=== PATIENT | female | born 1955 | race Caucasian/White ===

== ENCOUNTER 2016-06-18 07:56 | Inpatient (IN) | payer OTHER, MEDICARE ==
[2016-06-18] VITALS (15 sets, daily range): BP systolic 146–222; BP diastolic 90–135; PULSE 78–108; RESP 17–28; TEMP 98.1–98.7; O2SAT 92–97
[~2016-06-18] VITALS: Ht 162.6 cm; Wt 80.2 kg
[~2016-06-18 07:56] MED LIST: ACCUKIT11; ACCUKIT13; ASPI81 PO; BACT800T5 PO; CALTTAB PO; CLON.1 PO; DAILTAB PO; DUONI INH; HYDRA25 PO; ISOS60 PO; LEVEMIR SQ; LISI5 PO; METO50TA PO; NEUR100C PO; NIFE1TAB86 PO; NOVOLOGSS SQ; PRED10 PO; REQU3TAB PO; SYMB160A INH; UMEC1AER INH; VITA100020 PO; Z.0.OXYGENDME NC; [UNRECOGNIZED DRUG - CODE]
[2016-06-18] MEDS ORDERED: SODIUM CHLOR 0.9% 1000 ML INJ 1,000 ML IV ONE (08:15)
[2016-06-18] MEDS ORDERED: SODIUM CHLORIDE 0.9% FLUSH 5 ML FLUSH IVF PRN (08:15)
--- NOTE | 2016-06-18 08:40 | PD ---
HPI Chief Complaint: Altered Mental Status Time Seen by Provider: 08:03 Travel History International Travel<30 days: No Contact w/Intl Traveler<30days: No Traveled to known affect area: No History of Present Illness HPI Patient is a 60-year-old female with history of COPD on 2 L nasal cannula at all times, who presents to emergency room with her daughter for evaluation of altered mental status. As per patient's daughter, patient has not been acting like herself since yesterday, reports that patient appears very confused. Reports that she has noticed that patient has gotten up to urinate multiple times per hour. Reports concerns as patient may have a UTI. Reports that patient has had AMS in the past due to hyponatremia. Daughter thinks that patient has been eating and drinking normally. Denies any recent traumas or falls. Patient at this time is only alert to person, she is confused, patient with no complaints at this time. PFSH Past Medical History Anemia: Yes Arthritis: Yes (RHEUMATOID ) Asthma: No Autoimmune Disease: No Anxiety: Yes (THIS VISIT) Depression: No Heart Rhythm Problems: No Cardiovascular Problems: Yes (Cardiac arrest August 2015) High Cholesterol: Yes Chest Pain: No Congestive Heart Failure: No COPD: Yes Cerebrovascular Accident: No Diabetes: Yes Patient Takes Glucophage: No Diminished Hearing: No Endocrine: No Genitourinary: Yes (urinary retention) Hepatitis: No Hiatal Hernia: No Hypertension: Yes Immune Disorder: No Neurologic: No Psychiatric: No Respiratory: Yes Immunizations Current: Yes Migraines: No Myocardial Infarction: Yes Seizures: No Sleep Apnea: No Thyroid Disease: No Past Surgical History Abdominal Surgery: Yes AICD: No Arteriovenous Shunt: No Body Medical Devices: LEFT HIP HARDWARE Cardiac Surgery: No Ear Surgery: No Endocrine Surgery: No Eye Surgery: No Genitourinary Surgery: No Gynecologic Surgery: Yes (VAG. HYSTERECTOMY/ BSO) Hysterectomy: Yes Joint Replacement: Yes (KWADWO. KNEES) Neurologic Surgery: Yes ( 2 LUMBAR FUSION) Oral Surgery: Yes (TONSILLECTOMY) Pacemaker: No Thoracic Surgery: No Social History Alcohol Use: No Tobacco Use: No Substance Use: No Allergies-Medications (Allergen,Severity, Reaction): Coded Allergies: Codeine (Verified Adverse Reaction, Severe, 06/18/16) *MDRO Multi-Drug Resistant Organism (Verified Adverse Reaction, Unknown, ) MDR E. 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 Reported Meds & Prescriptions Reported Meds & Active Scripts Active Reported Anoro Ellipta Inh (Umeclidinium/Vilanterol) 62.5-25 Mcg/Act Aero 1 Puff INH DAILY Requip (Ropinirole) 3 Mg Tab 3 Mg PO HS PRN Nifedipine 20 Mg Cap 60 Mg PO Q12HR Multi Vitamin (Multiple Vitamin) 1 Tab Tab 1 Tab PO DAILY Vitamin B-12 Cr (Cyanocobalamin) 1,000 Mcg Tab 1,000 Mcg PO DAILY Metoprolol Tartrate 50 Mg Tab 50 Mg PO BID Lisinopril 5 Mg Tab 5 Mg PO DAILY Isosorbide Mononitrate ER (Isosorbide Mononitrate) 60 Mg Tab 60 Mg PO DAILY Levemir Inj (Insulin Detemir) 1,000 unit/ 10 ML Vial 10 Units SQ BID Do not mix with any other Insulin. Novolog Inj (Insulin Aspart) 1,000 Unit/10 Ml Vial 0 SQ DIRECTED Sliding Scale as directed. Hydralazine (Hydralazine HCl) 100 Mg Tab 100 Mg PO Q8HR Take with meals Gabapentin 100 Mg Cap 200 Mg PO BID Clonidine (Clonidine HCl) 0.1 Mg Tab 0.1 Mg PO Q8HR Caltrate 600+D (Calcium Carbonate-Cholecalciferol) 600-800 Mg-Unit Tab 1 Tab PO DAILY Symbicort Inh (Budesonide/Formoterol Fumarate) 160-4.5 Mcg/Act Aero 2 Puff INH Q12HR Albuterol Neb (Albuterol Sulfate) 2.5 Mg/0.5 Ml Neb 2.5 Mg NEB Q4HR NEB PRN Note: The Albuterol Sulfate Inhalation Solution is concentrated and must be diluted. Read complete instructions carefully before using. Aspirin 81 Mg Tabdr 81 Mg PO DAILY Review of Systems ROS Limitations: Altered Mental Status General / Constitutional: No: Fever Eyes: No: Visual changes HENT: No: Headaches Cardiovascular: No: Chest Pain or Discomfort Respiratory: No: Shortness of Breath Gastrointestinal: No: Abdominal Pain Genitourinary: No: Dysuria Musculoskeletal: No: Pain Skin: No Rash Neurologic: No: Weakness Psychiatric: No: Depression Endocrine: No: Polydipsia Hematologic/Lymphatic: No: Easy Bruising Physical Exam Narrative GENERAL: Mild distress SKIN: Warm and dry. HEAD: Atraumatic. Normocephalic. EYES: Pupils equal and round. No scleral icterus. No injection or drainage. ENT: No nasal bleeding or discharge. Mucous membranes pink and moist. NECK: Trachea midline. No JVD. CARDIOVASCULAR: Regular rate and rhythm. No murmur appreciated. RESPIRATORY: No accessory muscle use. Clear to auscultation. Breath sounds equal bilaterally. GASTROINTESTINAL: Abdomen soft, non-tender, nondistended. Hepatic and splenic margins not palpable. MUSCULOSKELETAL: No obvious deformities. No clubbing. No cyanosis. No edema. NEUROLOGICAL: Awake and alert. No obvious cranial nerve deficits. Motor grossly within normal limits. Normal speech. PSYCHIATRIC: Patient confused, alert to person only Data Data Last Documented VS Vital Signs Date Time Temp Pulse Resp B/P Pulse Ox O2 Delivery O2 Flow Rate FiO2 06/18/16 09:40 94 Venturi Mask 50 06/18/16 08:20 22 3 06/18/16 08:06 90 06/18/16 08:02 98.1 167/112 Orders Electrocardiogram (06/18/16 ) Prothrombin Time / Inr (Pt) (06/18/16 08:12) Act Partial Throm Time (Ptt) (06/18/16 08:12) Complete Blood Count With Diff (06/18/16 08:12) Comprehensive Metabolic Panel (06/18/16 08:12) Creatine Kinase (Cpk) (06/18/16 08:12) Drug Screen, Random Urine (06/18/16 08:12) Troponin I (06/18/16 08:12) Urinalysis - C+S If Indicated (06/18/16 08:12) Ct Brain W/O Iv Contrast(Rout) (06/18/16 08:12) Chest, Single Ap (06/18/16 08:12) Ecg Monitoring (06/18/16 08:12) Iv Access Insert/Monitor (06/18/16 08:12) Oximetry (06/18/16 08:12) Cath For Specimen (06/18/16 08:12) Blood Glucose (06/18/16 08:12) Sodium Chloride 0.9% Flush (Ns Flush) (06/18/16 08:15) Sodium Chlor 0.9% 1000 Ml Inj (Ns 1000 M (06/18/16 08:15) Lorazepam Inj (Ativan Inj) (06/18/16 09:15) Lorazepam Inj (Ativan Inj) (06/18/16 09:06) Urine Culture (06/18/16 08:40) Ceftriaxone Inj (Rocephin Inj) (06/18/16 09:45) Labs Laboratory Tests Test 06/18/16 06/18/16 08:30 08:40 White Blood Count 6.8 TH/MM3 Red Blood Count 4.51 MIL/MM3 Hemoglobin 13.1 GM/DL Hematocrit 38.9 % Mean Corpuscular Volume 86.3 FL Mean Corpuscular Hemoglobin 29.0 PG Mean Corpuscular Hemoglobin 33.7 % Concent Red Cell Distribution Width 14.2 % Platelet Count 240 TH/MM3 Mean Platelet Volume 6.9 FL Neutrophils (%) (Auto) 84.1 % Lymphocytes (%) (Auto) 8.5 % Monocytes (%) (Auto) 6.1 % Eosinophils (%) (Auto) 0.7 % Basophils (%) (Auto) 0.6 % Neutrophils # (Auto) 5.7 TH/MM3 Lymphocytes # (Auto) 0.6 TH/MM3 Monocytes # (Auto) 0.4 TH/MM3 Eosinophils # (Auto) 0.0 TH/MM3 Basophils # (Auto) 0.0 TH/MM3 CBC Comment DIFF FINAL Differential Comment Prothrombin Time 11.1 SEC Prothromb Time International 1.0 RATIO Ratio Activated Partial 27.7 SEC Thromboplast Time Sodium Level 136 MEQ/L Potassium Level 4.2 MEQ/L Chloride Level 96 MEQ/L Carbon Dioxide Level 30.8 MEQ/L Anion Gap 9 MEQ/L Blood Urea Nitrogen 24 MG/DL Creatinine 1.86 MG/DL Estimat Glomerular Filtration 27 ML/MIN Rate Random Glucose 113 MG/DL Calcium Level 8.9 MG/DL Total Bilirubin 0.4 MG/DL Aspartate Amino Transf 9 U/L (AST/SGOT) Alanine Aminotransferase 14 U/L (ALT/SGPT) Alkaline Phosphatase 135 U/L Total Creatine Kinase 53 U/L Troponin I LESS THAN 0.02 NG/ML Total Protein 8.2 GM/DL Albumin 3.5 GM/DL Urine Color YELLOW Urine Turbidity CLEAR Urine pH 7.5 Urine Specific [place] 1.013 Urine Protein 300 mg/dL Urine Glucose (UA) NEG mg/dL Urine Ketones 10 mg/dL Urine Occult Blood TRACE Urine Nitrite NEG Urine Bilirubin NEG Urine Urobilinogen LESS THAN 2.0 MG/DL Urine Leukocyte Esterase TRACE Urine RBC LESS THAN 1 /hpf Urine WBC 10 /hpf Urine WBC Clumps RARE Urine Squamous Epithelial <1 /hpf Cells Urine Bacteria OCC /hpf Microscopic Urinalysis Comment CULTURE INDICATED Urine Opiates Screen NEG Urine Barbiturates Screen NEG Urine Amphetamines Screen NEG Urine Benzodiazepines Screen NEG Urine Cocaine Screen NEG Urine Cannabinoids Screen NEG MDM Medical Decision Making Medical Screen Exam Complete: Yes Emergency Medical Condition: Yes Interpretation(s) EKG at 0808: Normal sinus rhythm at 95 beats minute, QT/QTc 380/342, no acute ST or T-wave changes Vital Signs Date Time Temp Pulse Resp B/P Pulse Ox O2 Delivery O2 Flow Rate FiO2 06/18/16 08:20 22 92 Nasal Cannula 3 06/18/16 08:06 90 22 93 Nasal Cannula 3 06/18/16 08:02 98.1 101 24 167/112 93 Differential Diagnosis UTI, CVA, hyponatremia, electrolyte abnormality, ACS Narrative Course Patient is a 60-year-old female who presents to emergency room from home with her daughter for evaluation of altered mental status. As per patient's daughter , patient has history of COPD, chronic back pain, reports that yesterday patient began to have "altered mental status." Reports that she has not been acting like her normal self and is only alert to person. Daughter denies any changes in medications. No fever/chills, no fall. Patient with no complaints in the emergency room. She is confused and only alert to person. Patient was placed on a cardiac cath tech upon arrival to emergency room. Labs as well as EKG and CAT scan of the head ordered for further evaluation symptoms. UA ordered for evaluation of possible urinary tract infection. Patient reevaluated, patient still confused. CBC unremarkable BMP: Sodium 136, potassium 4.2, BUN 24, creatinine 1.86 (baseline cr 1.37-2.06) , glucose 113, troponin 0.02 UA: Trace blood, trace leuk esterase, 10 white blood cells, rare white blood cell clumps UDS: neg X-ray of the chest with chronic opacities in the lung bases bilaterally suspicious for interstitial lung disease, no acute findings Patient confused at bedside, will require admission for acute delirium most likely from urinary tract infection. Call made to [facility] for admission Physician Communication Physician Communication case reviewed with dr benton who accepts pt to service for observation Diagnosis Primary Impression: Acute delirium Additional Impressions: UTI (urinary tract infection) Dehydration Admitting Information Admitting Physician Requests: Observation Emerita Conteh DO Jun 18, 2016 08:40
[2016-06-18 08:58] LABS: AUTOMATED NEUTROPHIL # 5.7 TH/MM3 (1.8-7.7); BASOPHIL % 0.6 % (0.0-2.0); EOSINOPHIL % 0.7 % (0.0-4.0); HEMATOCRIT 38.9 % (35.0-46.0); HEMO FLAGS DIFF FINAL; LYMPH % 8.5 % (9.0-44.0); LYMPHOCYTE # 0.6 TH/MM3 (1.0-4.8); MEAN CELL VOLUME 86.3 FL (80.0-100.0); MEAN CORPUSCULAR HGB CONC 33.7 % (32.0-36.0); MONO % 6.1 % (0.0-8.0); NEUT % 84.1 % (16.0-70.0); PLATELET COUNT 240 TH/MM3 (150-450); RED BLOOD COUNT 4.51 MIL/MM3 (4.00-5.30); RED CELL DISTRIBUTION WIDTH 14.2 % (11.6-17.2); WHITE BLOOD COUNT 6.8 TH/MM3 (4.0-11.0)
[2016-06-18 09:05] LABS: APTT (PATIENT) 27.7 SEC (24.3-30.1); PROTHROMBIN TIME - PATIENT 11.1 SEC (9.8-11.6)
[2016-06-18 09:06] LABS: AMPHETAMINE, URINE NEG (NEG); BARBITURATES, URINE NEG (NEG); COCAINE, URINE NEG (NEG)
[2016-06-18] MEDS ORDERED: LORazepam 2 MG/ML VIAL ONE (09:06)
[2016-06-18 09:07] LABS: BACTERIA, URINE OCC /hpf; BLOOD, URINE TRACE (NEG); COMMENT (UR) CULTURE INDICATED; CULTURE IF INDICATED CULTURE INDICATED; GLUCOSE,URINE NEG (NEG); KETONE, URINE 10 mg/dL (NEG); NITRITE,URINE NEG (NEG); PH, URINE 7.5 (5.0-8.5); SQUAMOUS EPITHELIAL CELL URINE <1 /hpf (0-5); URINE COLOR YELLOW (YELLW/STRAW)
[2016-06-18] MEDS ORDERED: LORazepam 2 MG/ML VIAL IV PUSH ONE (09:15)
[2016-06-18 09:16] LABS: ANION GAP 9 MEQ/L (5-15); AST (GOT) 9 U/L (15-37); BICARBONATE 30.8 MEQ/L (21.0-32.0); BLOOD UREA NITROGEN 24 MG/DL (7-18); CHLORIDE 96 MEQ/L (98-107); GLOMERULAR FILTRATION RATE 27 ML/MIN (>89); POTASSIUM 4.2 MEQ/L (3.5-5.1); SODIUM (NA) 136 MEQ/L (136-145)
[2016-06-18 09:20] LABS: ALKALINE PHOSPHATASE 135 U/L (45-117); ALT (GPT) 14 U/L (10-53); TOTAL BILIRUBIN ADULT 0.4 MG/DL (0.2-1.0)
[2016-06-18 09:24] LABS: CREATINE KINASE 53 U/L (26-192)
[2016-06-18] MEDS ORDERED: cefTRIAXone INJ 1,000 MG in SODIUM CHLORIDE 0.9% INJ 100 ML IV ONE (09:45)
[2016-06-18] MEDS ORDERED: ASPI1TAB69 PO (10:04)
[2016-06-18] MEDS ORDERED: METO50TA PO (10:04)
[2016-06-18] MEDS ORDERED: ALBU.5I NEB (10:04)
[2016-06-18] MEDS ORDERED: NIFE20 PO (10:04)
[2016-06-18] MEDS ORDERED: UMEC1AER INH (10:04)
[2016-06-18] MEDS ORDERED: NOVOLOGP2 SQ (10:04)
[2016-06-18] MEDS ORDERED: LISI-519 PO (10:04)
[2016-06-18] MEDS ORDERED: LEVEMIR SQ (10:04)
[2016-06-18] MEDS ORDERED: CLON0.1T PO (10:04)
[2016-06-18] MEDS ORDERED: CALTTAB PO (10:04)
[2016-06-18] MEDS ORDERED: HYDR-3801 PO (10:04)
[2016-06-18] MEDS ORDERED: VITA10004 PO (10:04)
[2016-06-18] MEDS ORDERED: GABA100C4 PO (10:04)
[2016-06-18] MEDS ORDERED: MULT-135 PO (10:04)
[2016-06-18] MEDS ORDERED: REQU3TAB PO (10:04)
[2016-06-18] MEDS ORDERED: ISOS60TA PO (10:04)
[2016-06-18] MEDS ORDERED: SYMB160A INH (10:04)
--- NOTE | 2016-06-18 10:22 | RADRPT ---
EXAM DATE/TIME: 06/18/2016 09:48 [facility] COMPARISON: CHEST SINGLE AP, September 03, 2015, 8:23. CT THORACIC SPINE W/O CONTRAST, September 28, 2015, 0:56. CHEST SIN GLE AP, September 17, 2015, 21:27. INDICATIONS : Short of breath, wheezing. MEDICAL HISTORY : Chronic obstructive pulmonary disease. SURGICAL HISTORY : None. ENCOUNTER: Initial ACUITY: 1 day PAIN SCORE: 0/10 LOCATION: Bilateral chest FINDINGS: Portable AP view of the chest demonstrates a normal-sized cardiac silhouette with stable but prominen t central pulmonary arteries. There are coarse interstitial opacities in the mid and lower lung zones bilaterally similar to the prior study. No consolidation or pneumothorax is identified. Bones and so ft tissues demonstrate no acute finding. CONCLUSION: Chronic coarse initial opacities in the lung bases bilaterally suspicious for interstitial lung disea se. Otherwise, no acute finding is identified. Nirav Landrum MD on June 18, 2016 at 10:19 Board Certified Radiologist. This report was verified electronically.
--- NOTE | 2016-06-18 10:38 | RADRPT ---
EXAM DATE/TIME: 06/18/2016 10:09 [facility] COMPARISON: CT BRAIN W/O CONTRAST, September 17, 2015, 22:51. INDICATIONS : Altered mental status. RADIATION DOSE: 38.08 CTDIvol (mGy) MEDICAL HISTORY : Cardiovascular disease. Hypertension. Rheumatoid arthritis. SURGICAL HISTORY : None. ENCOUNTER: Initial ACUITY: 1 day PAIN SCALE: 0/10 LOCATION: cranial TECHNIQUE: Multiple contiguous axial images were obtained of the head. Using automated exposure control and adj ustment of the mA and/or kV according to patient size, radiation dose was kept as low as reasonably a chievable to obtain optimal diagnostic quality images. FINDINGS: CEREBRUM: The ventricles are normal. No evidence of midline shift, mass lesion, hemorrhage or acute infarction . No extra-axial fluid collections are seen. POSTERIOR FOSSA: The cerebellum and brainstem demonstrate no acute findings. The 4th ventricle is midline. The cereb ellopontine angle is unremarkable. EXTRACRANIAL: Visualized sinuses are clear. SKULL: The calvaria is intact. No evidence of skull fracture. CONCLUSION: No acute intracranial abnormality is identified. Nirav Landrum MD on June 18, 2016 at 10:35 Board Certified Radiologist. This report was verified electronically.
[2016-06-18] MEDS ORDERED: NALOXONE HCL 0.4 MG/ML AMP IV PRN (11:00)
[2016-06-18] MEDS ORDERED: SENNOSIDES 8.6 MG TAB PO PRN (11:00)
[2016-06-18] MEDS: DOCUSATE SODIUM 100 MG CAP PO SCH ×2 (11:00→21:55)
[2016-06-18] MEDS ORDERED: SODIUM CHLORIDE 0.9% FLUSH 5 ML FLUSH FLUSH PRN (11:00)
[2016-06-18] MEDS: INSULIN ASPART SUPPLEMENTAL SCALE SQ SCH ×3 (11:00→20:44)
[2016-06-18] MEDS ORDERED: ACETAMINOPHEN 325 MG TAB PO PRN (11:00)
[2016-06-18] MEDS ORDERED: GLUCAGON 1 MG/ML VIAL OTHER PRN (11:30)
[2016-06-18] MEDS ORDERED: DEXTROSE 50% IN WATER 50 ML VIAL(D50) IV PUSH PRN (11:30)
[2016-06-18] MEDS ORDERED: hydrALAZINE HCL 20 MG/ML VIAL ONE (11:59)
[2016-06-18] MEDS: HEPARIN SODIUM - SQ 10,000 UNITS/ML VIAL SQ SCH ×2 (12:00→20:45)
[2016-06-18] MEDS ORDERED: hydrALAZINE HCL 20 MG/ML VIAL IV PUSH ONE ×2 (12:00→13:30)
[2016-06-18] MEDS: hydrALAZINE HCL 100 MG TAB PO SCH ×2 (14:06→20:43)
[2016-06-18] MEDS: cloNIDine HCL 0.1 MG TAB PO SCH ×2 (14:06→20:43)
--- NOTE | 2016-06-18 15:11 | EKG ---
Date Performed: 06/18/2016 Time Performed: 08:08:23 PTAGE: 60 years EKG: Sinus rhythm POSSIBLE LEFT ATRIAL ENLARGEMENT BORDERLINE ECG Compared to prior tracing no significant change PREVIOUS TRACING : 09/28/2015 01.45 DOCTOR: Gustabo Arambula Interpretating Date/Time 06/18/2016 15:09:15
[2016-06-18] MEDS ORDERED: RESP: ALBUTEROL 2.5 MG/IPRATROPIUM 0.5 MG NEB (PRN) NEB (15:30)
[2016-06-18] MEDS ORDERED: niCARdipine INJ 25 MG in SODIUM CHLOR 0.9% 250 ML INJ 250 ML IV SCH (15:30)
--- NOTE | 2016-06-18 15:35 | HHI.HP ---
[facility] Primary [facility] Physician Jn Castaneda M.D. Admission Diagnosis Acute Delirium, UTI Diagnoses: Chief Complaint: Confusion Travel History International Travel<30 Days: No Contact w/Intl Traveler <30 Da: No Traveled to Known Affected Are: No Sepsis Criteria SIRS Criteria (2 or more): Heart rate over 90, RR > 20 or PaCO2 < 32 Sepsis Criteria (SIRS+source): Infect source susp/known Criteria Outcome: Meets sepsis criteria History of Present Illness The patient is a 60-year-old female with a past medical history of COPD on home oxygen who is presenting to the hospital with confusion. The patient's daughter states that the patient has been confused since yesterday. The patient also endorses confusion since yesterday. The patient says that she didn 't know who her daughter was yesterday. The patient has also been urinating frequently so they thought that the patient may have a urinary tract infection. Reportedly the patient has been eating and drinking well. The patient denies any shortness of breath or chest pain. She also denies any fever. She says she lives with her daughter and has been going to physical therapy. She says she is on home oxygen but only uses it at night. She does endorse some sputum production and describes the sputum as clear in color. The patient says she has restless leg syndrome and is currently requesting her Requip. The patient also mentions that she take steroids on a daily basis. 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 She says she deals with chronic back pain since having back surgery a couple of years ago. 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 Active Ordered Medications Current Medications Medications (Trade) Dose Ordered Sig/Mathew Route Start Time Stop Time Status Last Admin (Ecotrin Ec) 81 mg DAILY PO 06/19/16 09:00 (Symbicort 160-4.5 Inh) 2 puff Q12HR INH 06/18/16 21:00 (Catapres) 0.1 mg Q8HR PO 06/18/16 14:00 06/18/16 14:06 (Vitamin B12) 1,000 mcg DAILY PO 06/19/16 09:00 (Apresoline) 100 mg Q8HR PO 06/18/16 14:00 06/18/16 14:06 (Levemir Inj) 10 units BID SQ 06/18/16 21:00 (Imdur) 60 mg DAILY PO 06/19/16 09:00 (Prinivil) 5 mg DAILY PO 06/19/16 09:00 (Lopressor) 50 mg BID PO 06/18/16 21:00 (Theragran) 1 tab DAILY PO 06/19/16 09:00 (Procardia) 60 mg Q12HR PO 06/18/16 21:00 (Oscal-D 250-125) 500 mg DAILY PO 06/19/16 09:00 (NS Flush) 2 ml UNSCH PRN FLUSH 06/18/16 11:00 (NS Flush) 2 ml BID FLUSH 06/18/16 21:00 (Tylenol) 650 mg Q4H PRN PO 06/18/16 11:00 (Colace) 100 mg Q12H PO 06/18/16 11:00 (Senokot) 17.2 mg Q12H PRN PO 06/18/16 11:00 (Heparin Inj) 5,000 units Q8H SQ 06/18/16 12:00 (Tylenol) 650 mg Q6H PRN PO 06/18/16 11:00 (Narcan Inj) 0.4 mg UNSCH PRN IV 06/18/16 11:00 (D50w (Vial) Inj) 25 ml UNSCH PRN IV PUSH 06/18/16 11:30 (Glucagon Inj) 1 mg UNSCH PRN OTHER 06/18/16 11:30 Methylprednisolone Sodium Succinate 40 mg 40 mg Q6HR IV PUSH 06/18/16 15:30 UNV (Levaquin 750 Mg Premix Inj) 150 ml @ 100 mls/hr Q48H IV 06/18/16 15:30 UNV Family History CAD Social History The patient says she smokes 3 cigarettes a day. She does not drink or use illicit substances. She lives with her daughter. Physical Exam Vital Signs Vital Signs Date Time Temp Pulse Resp B/P Pulse Ox O2 Delivery O2 Flow Rate FiO2 06/18/16 14:00 108 28 222/135 95 Venturi Mask 06/18/16 13:25 95 17 190/95 95 Venturi Mask 06/18/16 12:28 95 20 194/94 97 Venturi Mask 06/18/16 09:40 94 Venturi Mask 50 06/18/16 08:20 22 92 Nasal Cannula 3 06/18/16 08:06 90 22 93 Nasal Cannula 3 06/18/16 08:02 98.1 101 24 167/112 93 Physical Exam GENERAL: The patient appears very uncomfortable and short of breath. SKIN: No rashes, ecchymoses or lesions. Cool and dry. HEAD: Atraumatic. Normocephalic. No temporal or scalp tenderness. EYES: Pupils equal round and reactive. Extraocular motions intact. No scleral icterus. No injection or drainage. ENT: Nose without bleeding, purulent drainage or septal hematoma. Throat without erythema, tonsillar hypertrophy or exudate. Uvula midline. Airway patent. NECK: Trachea midline. No JVD or lymphadenopathy. Supple, nontender, no meningeal signs. CARDIOVASCULAR: Tachycardic without murmurs, gallops, or rubs. RESPIRATORY: Decreased breath sounds. Diffuse rhonchi. GASTROINTESTINAL: Abdomen soft, non-tender, nondistended. No hepato-splenomegaly , or palpable masses. No guarding. MUSCULOSKELETAL: Extremities without clubbing, cyanosis, or edema. No joint tenderness, effusion, or edema noted. NEUROLOGICAL: Awake and alert. Cranial nerves II through XII intact. Motor and sensory grossly within normal limits. Five out of 5 muscle strength in all muscle groups. Normal speech. PSYCH: Some confusion. Laboratory Laboratory Tests Test 06/18/16 06/18/16 06/18/16 08:30 08:40 12:22 White Blood Count 6.8 Red Blood Count 4.51 Hemoglobin 13.1 Hematocrit 38.9 Mean Corpuscular Volume 86.3 Mean Corpuscular Hemoglobin 29.0 Mean Corpuscular Hemoglobin 33.7 Concent Red Cell Distribution Width 14.2 Platelet Count 240 Mean Platelet Volume 6.9 Neutrophils (%) (Auto) 84.1 Lymphocytes (%) (Auto) 8.5 Monocytes (%) (Auto) 6.1 Eosinophils (%) (Auto) 0.7 Basophils (%) (Auto) 0.6 Neutrophils # (Auto) 5.7 Lymphocytes # (Auto) 0.6 Monocytes # (Auto) 0.4 Eosinophils # (Auto) 0.0 Basophils # (Auto) 0.0 CBC Comment DIFF FINAL Differential Comment Prothrombin Time 11.1 Prothromb Time International 1.0 Ratio Activated Partial 27.7 Thromboplast Time Sodium Level 136 Potassium Level 4.2 Chloride Level 96 Carbon Dioxide Level 30.8 Anion Gap 9 Blood Urea Nitrogen 24 Creatinine 1.86 Estimat Glomerular Filtration 27 Rate Random Glucose 113 Calcium Level 8.9 Total Bilirubin 0.4 Aspartate Amino Transf 9 (AST/SGOT) Alanine Aminotransferase 14 (ALT/SGPT) Alkaline Phosphatase 135 Total Creatine Kinase 53 Troponin I LESS THAN 0.02 LESS THAN 0.02 Total Protein 8.2 Albumin 3.5 Urine Color YELLOW Urine Turbidity CLEAR Urine pH 7.5 Urine Specific [place] 1.013 Urine Protein 300 Urine Glucose (UA) NEG Urine Ketones 10 Urine Occult Blood TRACE Urine Nitrite NEG Urine Bilirubin NEG Urine Urobilinogen LESS THAN 2.0 Urine Leukocyte Esterase TRACE Urine RBC LESS THAN 1 Urine WBC 10 Urine WBC Clumps RARE Urine Squamous Epithelial <1 Cells Urine Bacteria OCC Microscopic Urinalysis Comment CULTURE INDICATED Urine Opiates Screen NEG Urine Barbiturates Screen NEG Urine Amphetamines Screen NEG Urine Benzodiazepines Screen NEG Urine Cocaine Screen NEG Urine Cannabinoids Screen NEG Date/Time Procedure Status Source Growth 06/18/16 08:40 Urine Culture Received Urine Clean Catch Pending Result Diagram: 06/18/1682906/[id number]/16829 Imaging Last Impressions Head CT 06/18/16811 Signed Impressions: Service Date/Time: Saturday, June 18, 2016 10:09 - CONCLUSION: No acute intracranial abnormality is identified. Nirav Landrum MD Chest X-Ray 06/18/16811 Signed Impressions: Service Date/Time: Saturday, June 18, 2016 09:48 - CONCLUSION: Chronic coarse initial opacities in the lung bases bilaterally suspicious for interstitial lung disease. Otherwise, no acute finding is identified. Nirav Landrum MD Assessment and Plan Assessment and Plan Acute respiratory failure/ Sepsis/ COPD/ Pneumonia The patient is on home oxygen at night. She was on a Ventimask in the emergency department. She denies shortness of breath but she is obviously working to breathe. Chest x-ray shows chronic coarse interstitial opacities in the bilateral bases. - Check an ABG. - BiPAP if needed. - Start Solu-Medrol every 6 hours. - Standing and as needed duo nebs. Continue Symbicort. - Start IV Levaquin. - Sputum culture and Gram stain. - IV fluids. - Monitor patient in the ICU. - smoking cessation instruction given. Hypertensive emergency Systolic blood pressure well into the 200s on presentation. CT of the head was unremarkable. - Resume home medication regimen. - Cardene drip as needed. Metabolic encephalopathy The patient has a UTI, pneumonia. Likely the patient has hypercarbic respiratory failure. - Check an ABG and start BiPAP as indicated. - Continue Levaquin for infections. - Check a vitamin B12 level, ammonia level and TSH. - PT/OT/ST. - Hold gabapentin and Requip. Chronic renal disease/ UTI Creatinine is around baseline. UA indicative of infection. - IV fluids. - Antibiotics. - Follow BMP and avoid nephrotoxic agents. Restless leg syndrome The patient requests to be resumed on Requip. - Hold off on Requip and other sedating medications in the setting of encephalopathy and resume as indicated. PPx: Heparin. Code Status Full code. Discussed Condition With Dr. Conteh, nurse, patient Physician Certification 2 Midnight Certification Type: Admission for Inpatient Services Order for Inpatient Services The services are ordered in accordance with Medicare regulations or non- Medicare payer requirements, as applicable. In the case of services not specified as inpatient-only, they are appropriately provided as inpatient services in accordance with the 2-midnight benchmark. Estimated LOS (days): 2 days is the estimated time the patient will need to remain in the hospital, assuming treatment plan goals are met and no additional complications. Post-Hospital Plan: Not yet determined Dylan Hoover DO Jun 18, 2016 15:35
[2016-06-18] MEDS: RESP: ALBUTEROL 2.5 MG/IPRATROPIUM 0.5 MG NEB (SCH) NEB ×2 (15:37→19:47)
[2016-06-18 15:50] LABS: BLOOD GAS BASE EXCESS 2.9 mmol/L (-2-2); BLOOD GAS CARBOXYHEMOGLOBIN 2.3 % (0-4); BLOOD GAS HCO3 26 mmol/L (22-26); BLOOD GAS O2 HGB SATURATION 91 % (90-100); BLOOD GAS OXYGEN CONTENT 16.3 Vol % (12.0-20.0); BLOOD GAS PCO2 33 mmHg (38-42); BLOOD GAS PO2 69 mmHG (61-120); BLOOD GAS TOTAL HGB 12.7 G/DL (12.0-16.0); CRITICAL VALUE NO; DRAW SITE RT RADIAL; FIO2 50 %; NUMBER OF ARTERIAL PUNCTURES 1; OXYGEN DEVICE Venti Mask; TEMP CORR TO 98.6
[2016-06-18 15:51] LABS: STAT YES; ULNAR PULSE PRESENT
[2016-06-18] MEDS: methylPREDNISolone SOD SUCC 40 MG/1 ML VIAL IV PUSH SCH ×2 (16:00→17:55)
[2016-06-18] MEDS ORDERED: SODIUM CHLOR 0.9% 1000 ML INJ 1,000 ML IV SCH (16:00)
[2016-06-18] MEDS: LEVOFLOXACIN 750 MG PREMIX INJ 150 ML IV SCH (16:00)
[2016-06-18] MEDS: METOPROLOL TARTRATE 50 MG TAB PO SCH (20:05)
[2016-06-18] MEDS: INSULIN DETEMIR 100 UNITS/ML VIAL SQ SCH (20:43)
[2016-06-18] MEDS: SODIUM CHLORIDE 0.9% FLUSH 5 ML FLUSH FLUSH SCH (20:44)
[2016-06-18] MEDS ORDERED: ALPRAZolam 0.25 MG TAB PO ONE (21:15)
[2016-06-18] MEDS: BUDESONIDE-FORMOTEROL 160/4.5 MCG INHALER INH SCH (21:21)
[2016-06-18] MEDS: NIFEdipine 20 MG CAP PO SCH (21:21)
[2016-06-18 21:32] LABS: BLOOD GAS CARBOXYHEMOGLOBIN 1.6 % (0-4); BLOOD GAS HCO3 24 mmol/L (22-26); BLOOD GAS METHEMOGLOBIN 1.3 % (0-2); BLOOD GAS O2 HGB SATURATION 90 % (90-100); BLOOD GAS OXYGEN CONTENT 15.4 Vol % (12.0-20.0); BLOOD GAS PCO2 35 mmHg (38-42); BLOOD GAS PO2 67 mmHg (61-120); BLOOD GAS TOTAL HGB 12.1 G/DL (12.0-16.0); CRITICAL VALUE NO; DRAW SITE RT RADIAL; FIO2 50 %; NUMBER OF ARTERIAL PUNCTURES 1; OXYGEN DEVICE Venti Mask; TEMP CORR TO 98.6; ULNAR PULSE PRESENT
[2016-06-18 21:33] LABS: STAT NO
[2016-06-18 22:28] LABS: HEMOGLOBIN A1a 3.9 %; HEMOGLOBIN A1b 1.8 %; HEMOGLOBIN Ao 82.6 %; HEMOGLOBIN LA1C 2.1 %; HEMOGLOBIN P3 5.2 %
[2016-06-18] MEDS ORDERED: CHLORHEXIDINE GLUCONATE 2 % 1 PACK (2 CLOTHS)(extra cloths) TOP PRN (23:15)
[2016-06-19] VITALS (14 sets, daily range): BP systolic 117–173; BP diastolic 63–93; PULSE 70–90; RESP 23–32; TEMP 98.1–98.8; O2SAT 89–95
[2016-06-19] MEDS: methylPREDNISolone SOD SUCC 40 MG/1 ML VIAL IV PUSH SCH ×4 (00:32→17:28)
[2016-06-19] MEDS: CHLORHEXIDINE GLUCONATE 2 % 1 PACK (2 CLOTHS)(taper/protocol) TOP SCH (04:00)
[2016-06-19] MEDS: cloNIDine HCL 0.1 MG TAB PO SCH ×3 (05:05→21:48)
[2016-06-19] MEDS: HEPARIN SODIUM - SQ 10,000 UNITS/ML VIAL SQ SCH ×3 (05:05→21:47)
[2016-06-19] MEDS: hydrALAZINE HCL 100 MG TAB PO SCH ×3 (05:05→21:47)
[2016-06-19 05:16] LABS: AUTOMATED NEUTROPHIL # 5.1 TH/MM3 (1.8-7.7); BASOPHIL % 0.1 % (0.0-2.0); HEMATOCRIT 37.1 % (35.0-46.0); HEMO FLAGS DIFF FINAL; LYMPH % 4.9 % (9.0-44.0); LYMPHOCYTE # 0.3 TH/MM3 (1.0-4.8); MEAN CELL VOLUME 85.9 FL (80.0-100.0); MEAN CORPUSCULAR HEMOGLOBIN 29.1 PG (27.0-34.0); MEAN CORPUSCULAR HGB CONC 33.9 % (32.0-36.0); MONO % 1.3 % (0.0-8.0); NEUT % 93.7 % (16.0-70.0); PLATELET COUNT 227 TH/MM3 (150-450); RED BLOOD COUNT 4.32 MIL/MM3 (4.00-5.30); RED CELL DISTRIBUTION WIDTH 14.7 % (11.6-17.2); WHITE BLOOD COUNT 5.5 TH/MM3 (4.0-11.0)
[2016-06-19 05:41] LABS: BICARBONATE 27.3 MEQ/L (21.0-32.0); POTASSIUM 4.3 MEQ/L (3.5-5.1)
[2016-06-19] MEDS: INSULIN ASPART SUPPLEMENTAL SCALE SQ SCH ×4 (06:26→21:47)
[2016-06-19] MEDS: RESP: ALBUTEROL 2.5 MG/IPRATROPIUM 0.5 MG NEB (SCH) NEB ×4 (07:46→20:28)
--- NOTE | 2016-06-19 08:17 | HHI.PR ---
Subjective Remarks With sob, however says improved cpmparing to yesterday. She si more alert and awake. Says she can;t urinate. Will do bladder US and might need raphael nif retention. Patient denies any chest pain. ,+ cough nonproductive. No n/v/d/c. No efevr or chills overnight. Says she doesn't have a pulm doctor. Objective Vitals Vital Signs Date Time Temp Pulse Resp B/P Pulse Ox O2 Delivery O2 Flow Rate FiO2 06/19/16 07:46 93 Venturi Mask 50 06/19/16 06:00 75 06/19/16 04:00 72 06/19/16 04:00 98.5 72 30 173/93 90 06/19/16 02:00 77 06/19/16 00:00 98.8 79 31 117/63 94 06/19/16 00:00 79 06/18/16 23:45 92 45 06/18/16 22:00 78 06/18/16 20:38 92 Venturi Mask 6.00 50 06/18/16 20:00 98.7 84 26 205/110 94 06/18/16 20:00 84 06/18/16 19:48 97 BiPAP 45 06/18/16 19:48 96 45 06/18/16 18:30 94 06/18/16 18:30 94 28 189/94 96 06/18/16 18:29 96 45 06/18/16 16:20 97 50 06/18/16 16:15 107 28 146/90 93 Venturi Mask 06/18/16 14:00 108 28 222/135 95 Venturi Mask 06/18/16 13:25 95 17 190/95 95 Venturi Mask 06/18/16 12:28 95 20 194/94 97 Venturi Mask 06/18/16 09:40 94 Venturi Mask 50 06/18/16 08:20 22 92 Nasal Cannula 3 I/O 06/18/16 06/18/16 06/18/16 06/19/16 06/19/16 06/19/16 07:00 15:00 23:00 07:00 15:00 23:00 Intake Total 717 ml 90 ml Balance 717 ml 90 ml Intake Oral 500 ml 90 ml IV Total 217 ml 0 ml # Voids 0 0 # Bowel Movements 0 0 Result Diagram: 06/19/1643406/19/16434 Imaging Last Impressions Head CT 06/18/16811 Signed Impressions: Service Date/Time: Saturday, June 18, 2016 10:09 - CONCLUSION: No acute intracranial abnormality is identified. Nirav Landrum MD Chest X-Ray 06/18/16811 Signed Impressions: Service Date/Time: Saturday, June 18, 2016 09:48 - CONCLUSION: Chronic coarse initial opacities in the lung bases bilaterally suspicious for interstitial lung disease. Otherwise, no acute finding is identified. Nirav Landrum MD Objective Remarks GENERAL: 60 yo female, with sob, well nourished, well developed patient. SKIN: No rashes, ecchymoses or lesions. Cool and dry. HEAD: Atraumatic. Normocephalic. No temporal or scalp tenderness. EYES: Pupils equal round and reactive. Extraocular motions intact. No scleral icterus. No injection or drainage. ENT: Nose without bleeding, purulent drainage or septal hematoma. Throat without erythema, tonsillar hypertrophy or exudate. Uvula midline. Airway patent. NECK: Trachea midline. No JVD or lymphadenopathy. Supple, nontender, no meningeal signs. CARDIOVASCULAR: Tachycardic without murmurs, gallops, or rubs. RESPIRATORY: Decreased breath sounds. Diffuse rhonchi. GASTROINTESTINAL: Abdomen soft, non-tender, nondistended. No hepato-splenomegaly , or palpable masses. No guarding. MUSCULOSKELETAL: Extremities without clubbing, cyanosis, or edema. No joint tenderness, effusion, or edema noted. NEUROLOGICAL: Awake and alert. Cranial nerves II through XII intact. Motor and sensory grossly within normal limits. Five out of 5 muscle strength in all muscle groups. Normal speech. PSYCH: Some confusion. A/P Assessment and Plan Acute respiratory failure on chronic respiratory failure/ Sepsis/ COPD/ Pneumonia The patient is on home oxygen at night. She was on a Ventimask in the emergency department. She denies shortness of breath but she is obviously working to breathe. Chest x-ray shows chronic coarse interstitial opacities in the bilateral bases. ABG reviewed Was on BiPAP overnight currently satting well on 50 % ventimask On Solu-Medrol, duonebs, continue to taper down as tolerated. Continue Symbicort. Continue IV Levaquin. Sputum culture and Gram stain pending. IV fluids. Monitor patient in the ICU. Smoking cessation, counseled. PT/OT consult Consult pulmonology Hypertensive emergency Systolic blood pressure well into the 200s on presentation. CT of the head was unremarkable. Resume home medication regimen. Cardene drip as needed. Metabolic encephalopathy, resolving The patient has a UTI, pneumonia. Likely the patient has hypercarbic respiratory failure. Check an ABG and start BiPAP as indicated. Continue Levaquin for infections. Check a vitamin B12 level, ammonia level and TSH. PT/OT/ST. Hold gabapentin and Requip. Chronic renal disease/ UTI Creatinine is around baseline. UA indicative of infection. IV fluids. Antibiotics. Follow BMP and avoid nephrotoxic agents. KAILEE likely 2/2 UTI/urinary retention/comorbidities. Continue IVF. Ucx pending. Do bladder US, place raphael as patient with urinary retention. Will also do Kidney US. Will consider nephrology consult if no improvement. Restless leg syndrome The patient requests to be resumed on Requip. Hold off on Requip and other sedating medications in the setting of encephalopathy and resume as indicated. PPx: Heparin. Code Status Full code. Discussed Condition With Patient, nurse. Discharge Planning Pending improvement. Stacey Henson MD Jun 19, 2016 08:17
[2016-06-19] MEDS: CYANOCOBALAMIN 1,000 MCG TAB PO SCH (09:00)
[2016-06-19] MEDS: NIFEdipine 20 MG CAP PO SCH ×2 (09:00→21:47)
[2016-06-19] MEDS ORDERED: UMECLIDINIUM 62.5 MCG/VILANTEROL 25 MCG INHALER INH SCH (09:00)
[2016-06-19] MEDS: CALCIUM/VITAMIN D 250 MG/125 U TAB PO SCH (09:00)
[2016-06-19] MEDS: MULTIVITAMIN TAB PO SCH (09:01)
[2016-06-19] MEDS: ISOSORBIDE MONONITRATE 60 MG TAB PO SCH (09:01)
[2016-06-19] MEDS: LISINOPRIL 5 MG TAB PO SCH (09:01)
[2016-06-19] MEDS: METOPROLOL TARTRATE 50 MG TAB PO SCH ×2 (09:01→21:47)
[2016-06-19] MEDS: ASPIRIN EC 81 MG TABEC PO SCH (09:01)
[2016-06-19] MEDS: INSULIN DETEMIR 100 UNITS/ML VIAL SQ SCH ×2 (09:02→21:47)
[2016-06-19] MEDS: SODIUM CHLORIDE 0.9% FLUSH 5 ML FLUSH FLUSH SCH ×2 (09:02→21:48)
[2016-06-19] MEDS: BUDESONIDE-FORMOTEROL 160/4.5 MCG INHALER INH SCH ×2 (09:02→21:48)
[2016-06-19] MEDS: DOCUSATE SODIUM 100 MG CAP PO SCH ×2 (11:00→21:48)
[2016-06-19] MEDS: ALPRAZolam 0.25 MG TAB PO PRN ×2 (12:28→21:48)
--- NOTE | 2016-06-19 15:09 | RADRPT ---
EXAM DATE/TIME: 06/19/2016 14:14 [facility] COMPARISON: No previous studies available for comparison. INDICATIONS : Increased BUN/Creatinine. MEDICAL HISTORY : Myocardial infarction. Hypercholesterolemia. Hypertension. COPD. Diabetes. Arthritis. Anemia. SURGICAL HISTORY : Hysterectomy. Lumbar fusion. Left hip replacement. Bilateral total knee replacement. ENCOUNTER: Subsequent ACUITY: 1 day PAIN SCORE: 0/10 LOCATION: Bilateral flank MEASUREMENTS: RIGHT KIDNEY: 7.3 x 3.0 x 3.6 cm LEFT KIDNEY: 10.2 x 5.3 x 5.1 cm FINDINGS: RIGHT KIDNEY: Renal cortex is normal in thickness and increased echotexture. No hydronephrosis, stone, or mass. LEFT KIDNEY: Renal cortex is normal in thickness and increased echotexture. No hydronephrosis, stone, or mass. BLADDER: Not visualized. CONCLUSION: 1. Echogenic kidneys which can be seen with medical renal disease. 2. Small right kidney. 3. Nonvisualization of the bladder. Chavez Harvey MD on June 19, 2016 at 15:06 Board Certified Radiologist. This report was verified electronically.
--- NOTE | 2016-06-19 22:45 | MB ---
cc: Flor HANNAH M.D. DATE OF CONSULTATION: 06/19/2016 REASON FOR CONSULTATION: HISTORY Ms. Vigil is a 60-year-old white female with a longstanding history of COPD over about a decade, followed by her primary care physician on a combination of oxygen 2 liters, Symbicort and nebulized aerosol treatments. She developed confusion and some mild increase in dyspnea, presented to the hospital yesterday and was admitted for possible septicemia. Initial arterial blood gases on a 50% Venti mask her pO2 was 69 with a pH 7.5 and pCO2 of 33, and a subsequent follow up several hours later was really unchanged. She has been stable. She has had cultures and her urine culture is growing a gram-negative dean. During this interview this evening she seems alert and appropriate. The confusion seems to have cleared. She is not complaining of dyspnea out of the ordinary. She says she has chronic shortness of breath and she did take up smoking again after a recent anniversary of her 's which may have contributed to part of the recent problem with increasing congestion and shortness of breath. She has had no chest pain. No purulent sputum. No hemoptysis. She does not have increasing or chronic edema in her legs and no history of heart failure. Although the chart lists diabetes as a diagnoses she says she checks her sugars regularly at home and they have been normal, only when she takes steroids does her blood sugar go up. PAST MEDICAL HISTORY, PAST SURGICAL HISTORY: 1. Hysterectomy. 2. Bilateral knee replacement. 3. Lumbar fusion. 4. Tonsillectomy. No history of malignancy. ALLERGIES Codeine. SOCIAL HISTORY . Lives with her daughter. Does not drink alcohol regularly, and has been smoking a few cigarettes a day again after having quit for several years. MEDICATIONS: Medications reviewed in the EMR. REVIEW OF SYSTEMS: Other than that noted above she has had no abdominal complaints. No diarrhea. No significant vomiting. PHYSICAL EXAMINATION Temperature 98, 129/68, pulse 70, respirations 18 nonlabored, sat 90% on 3 liters. HEENT: Sclerae anicteric. Mucous membranes are moist. Neck veins are not distended. Chest is diminished but really quite clear, some minimal scattered wheezes but no congestion. Heart: Regular rhythm. No harsh murmur. Abdomen is soft. Extremities: She has no pitting edema or calf tenderness. No cyanosis. X-RAYS: Chest x-ray: Coarse interstitial opacities appear chronic. LABORATORY DATA: White blood cell count 5500, hemoglobin 12, BUN is 30, creatinine 1.9. Urine tox screen was negative. Urine cultures pending. DISCUSSION Mrs. Vigil presents with a known history of COPD oxygen-dependent, actually sounds like that had been fairly stable until she took up smoking again. She may also have a urinary tract infection to account for some of the illness and the confusion which seems to have cleared. She is currently on Levaquin along with aerosolized bronchodilators and oxygen, methylprednisolone, and all of that can be continued in the next several days. Further diagnostic and/or therapeutic intervention will depend on her response and ongoing clinical course. R. MD JAMARI Duffy/DARLING /8:15 PM /10:01 PM
[2016-06-20] VITALS (17 sets, daily range): BP systolic 97–162; BP diastolic 56–78; PULSE 58–71; RESP 25–37; TEMP 98.1–98.7; O2SAT 88–95
[2016-06-20] MEDS: methylPREDNISolone SOD SUCC 40 MG/1 ML VIAL IV PUSH SCH ×4 (00:26→20:28)
[2016-06-20] MEDS: CHLORHEXIDINE GLUCONATE 2 % 1 PACK (2 CLOTHS)(taper/protocol) TOP SCH (04:00)
[2016-06-20] MEDS: hydrALAZINE HCL 100 MG TAB PO SCH (05:27)
[2016-06-20] MEDS: cloNIDine HCL 0.1 MG TAB PO SCH (05:27)
[2016-06-20] MEDS: HEPARIN SODIUM - SQ 10,000 UNITS/ML VIAL SQ SCH ×3 (05:28→20:29)
[2016-06-20 05:44] LABS: AUTOMATED NEUTROPHIL # 8.2 TH/MM3 (1.8-7.7); HEMATOCRIT 33.8 % (35.0-46.0); HEMO FLAGS DIFF FINAL; LYMPH % 4.1 % (9.0-44.0); LYMPHOCYTE # 0.4 TH/MM3 (1.0-4.8); MEAN CELL VOLUME 87.4 FL (80.0-100.0); MEAN CORPUSCULAR HEMOGLOBIN 29.4 PG (27.0-34.0); MEAN CORPUSCULAR HGB CONC 33.7 % (32.0-36.0); MONO % 4.3 % (0.0-8.0); NEUT % 91.6 % (16.0-70.0); PLATELET COUNT 236 TH/MM3 (150-450); RED BLOOD COUNT 3.86 MIL/MM3 (4.00-5.30); WHITE BLOOD COUNT 8.9 TH/MM3 (4.0-11.0)
[2016-06-20 05:56] LABS: BICARBONATE 28.3 MEQ/L (21.0-32.0); POTASSIUM 4.6 MEQ/L (3.5-5.1)
[2016-06-20] MEDS: INSULIN ASPART SUPPLEMENTAL SCALE SQ SCH ×4 (06:19→20:29)
--- NOTE | 2016-06-20 07:30 | HHI.PR ---
Subjective Remarks Tachypneic and dessating at 89 while on 6L NC. Will repeat ABG. Patient says she is sleepy and feels tored. Has productive cough whitish sputum. No vhest pain. No n/v/d/c. Decrease appetite. No feevr or chills. Decrease UPO will start IVF and also kidney function worsened, will consult her nephrology Dr Blackmon Objective Vitals Vital Signs Date Time Temp Pulse Resp B/P Pulse Ox O2 Delivery O2 Flow Rate FiO2 06/20/16 06:00 63 06/20/16 04:00 98.1 68 37 125/64 89 06/20/16 04:00 68 06/20/16 02:00 63 06/20/16 01:20 94 50 06/20/16 00:00 66 06/20/16 00:00 98.4 66 25 97/56 90 06/19/16 22:00 90 06/19/16 20:28 91 Nasal Cannula 6.00 06/19/16 20:00 98.6 70 23 129/63 89 06/19/16 20:00 70 06/19/16 18:00 80 06/19/16 16:00 98.1 74 28 129/68 90 06/19/16 16:00 72 06/19/16 14:00 75 06/19/16 12:00 80 06/19/16 12:00 98.3 78 30 124/76 91 06/19/16 10:00 78 06/19/16 08:00 98.1 80 32 159/77 95 06/19/16 08:00 78 06/19/16 07:46 93 Venturi Mask 50 I/O 06/19/16 06/19/16 06/19/16 06/20/16 06/20/16 06/20/16 07:00 15:00 23:00 07:00 15:00 23:00 Intake Total 90 ml 550 ml 500 ml 120 ml Output Total 500 ml 100 ml 100 ml Balance 90 ml 50 ml 400 ml 20 ml Intake Oral 90 ml 550 ml 500 ml 100 ml IV Total 0 ml 0 ml 20 ml Output Urine Total 500 ml 100 ml 100 ml Bladder Scan Volume Amount 300 ml # Voids 0 # Bowel Movements 0 0 Result Diagram: 06/20/16 0452 06/20/16 0452 Imaging Last Impressions Renal Ultrasound 06/19/16 0000 Signed Impressions: Service Date/Time: Sunday, June 19, 2016 14:14 - CONCLUSION: 1. Echogenic kidneys which can be seen with medical renal disease. 2. Small right kidney. 3. Nonvisualization of the bladder. Chavez Harvey MD Head CT 06/18/16811 Signed Impressions: Service Date/Time: Saturday, June 18, 2016 10:09 - CONCLUSION: No acute intracranial abnormality is identified. Nirav Landrum MD Chest X-Ray 06/18/16811 Signed Impressions: Service Date/Time: Saturday, June 18, 2016 09:48 - CONCLUSION: Chronic coarse initial opacities in the lung bases bilaterally suspicious for interstitial lung disease. Otherwise, no acute finding is identified. Nirav Landrum MD Objective Remarks GENERAL: 60 yo female, with sob, well nourished, well developed patient. SKIN: No rashes, ecchymoses or lesions. Cool and dry. HEAD: Atraumatic. Normocephalic. No temporal or scalp tenderness. EYES: Pupils equal round and reactive. Extraocular motions intact. No scleral icterus. No injection or drainage. ENT: Nose without bleeding, purulent drainage or septal hematoma. Throat without erythema, tonsillar hypertrophy or exudate. Uvula midline. Airway patent. NECK: Trachea midline. No JVD or lymphadenopathy. Supple, nontender, no meningeal signs. CARDIOVASCULAR: Tachycardic without murmurs, gallops, or rubs. RESPIRATORY: Decreased breath sounds. Diffuse rhonchi. GASTROINTESTINAL: Abdomen soft, non-tender, nondistended. No hepato-splenomegaly , or palpable masses. No guarding. MUSCULOSKELETAL: Extremities without clubbing, cyanosis, or edema. No joint tenderness, effusion, or edema noted. NEUROLOGICAL: Awake and alert. Cranial nerves II through XII intact. Motor and sensory grossly within normal limits. Five out of 5 muscle strength in all muscle groups. Normal speech. PSYCH: Some confusion. A/P Assessment and Plan Acute respiratory failure on chronic respiratory failure/ Sepsis/ COPD/ Pneumonia The patient is on home oxygen at night. She was on a Ventimask in the emergency department. She denies shortness of breath but she is obviously working to breathe. Chest x-ray shows chronic coarse interstitial opacities in the bilateral bases. Will repeat ABG 06/20 Off BiPAP since 3.7, desating on 6L NC repeat ABG On Solu-Medrol, duonebs, continue to taper down as tolerated. Continue Symbicort. Continue IV Levaquin. Sputum culture and Gram stain pending. IV fluids. Monitor patient in the ICU. Smoking cessation, counseled. PT/OT consult Consult pulmonology Hypertensive emergency Systolic blood pressure well into the 200s on presentation. CT of the head was unremarkable. Resume home medication regimen. Cardene drip as needed. Metabolic encephalopathy, resolving The patient has a UTI, pneumonia. Likely the patient has hypercarbic respiratory failure. Check an ABG and start BiPAP as indicated. Continue Levaquin for infections. Check a vitamin B12 level, ammonia level and TSH. PT/OT/ST. Hold gabapentin and Requip. Chronic renal disease/ UTI KAILEE on CKD. Creatinine , BUN increased form baseline. UA indicative of infection. kidney US reviewed consistent with CKD. Patient also with decreased UOP. Give bolus 500 NS. Start IVF. Consult his nephrology doctor Neymar. Continue Antibiotics levaquin 750 mg Q48 hrs. Follow BMP and avoid nephrotoxic agents as possible. Bonilla in place. Restless leg syndrome The patient requests to be resumed on Requip. Hold off on Requip and other sedating medications in the setting of encephalopathy and resume as indicated. PPx: Heparin. Code Status Full code. Discussed Condition With Patient, nurse. Discharge Planning Pending improvement. Stacey Henson MD Jun 20, 2016 07:30
[2016-06-20] MEDS: SODIUM CHLORIDE 0.9% FLUSH 5 ML FLUSH FLUSH SCH ×2 (08:07→20:29)
[2016-06-20] MEDS: BUDESONIDE-FORMOTEROL 160/4.5 MCG INHALER INH SCH ×2 (08:08→20:29)
[2016-06-20] MEDS: LISINOPRIL 5 MG TAB PO SCH (08:10)
[2016-06-20] MEDS: CYANOCOBALAMIN 1,000 MCG TAB PO SCH (08:10)
[2016-06-20] MEDS: INSULIN DETEMIR 100 UNITS/ML VIAL SQ SCH ×2 (08:10→20:27)
[2016-06-20] MEDS: MULTIVITAMIN TAB PO SCH (08:11)
[2016-06-20] MEDS: ISOSORBIDE MONONITRATE 60 MG TAB PO SCH (08:11)
[2016-06-20] MEDS: NIFEdipine 20 MG CAP PO SCH (08:11)
[2016-06-20] MEDS: ASPIRIN EC 81 MG TABEC PO SCH (08:11)
[2016-06-20] MEDS: CALCIUM/VITAMIN D 250 MG/125 U TAB PO SCH (08:12)
[2016-06-20] MEDS: METOPROLOL TARTRATE 50 MG TAB PO SCH ×2 (08:12→20:28)
[2016-06-20] MEDS: RESP: ALBUTEROL 2.5 MG/IPRATROPIUM 0.5 MG NEB (SCH) NEB ×4 (08:28→21:31)
[2016-06-20] MEDS ORDERED: SODIUM CHLORID 0.9% 500 ML INJ 500 ML IV ONE (09:30)
[2016-06-20] MEDS: SODIUM CHLOR 0.9% 1000 ML INJ 1,000 ML IV SCH ×2 (10:03→21:53)
[2016-06-20] MEDS: DOCUSATE SODIUM 100 MG CAP PO SCH ×2 (10:59→21:53)
[2016-06-20 11:09] LABS: BLOOD GAS BASE EXCESS -2.4 mmol/L (-2-2); BLOOD GAS CARBOXYHEMOGLOBIN 1.4 % (0-4); BLOOD GAS HCO3 22 mmol/L (22-26); BLOOD GAS METHEMOGLOBIN 1.3 % (0-2); BLOOD GAS O2 HGB SATURATION 87 % (90-100); BLOOD GAS OXYGEN CONTENT 13.7 Vol % (12.0-20.0); BLOOD GAS PCO2 38 mmHg (38-42); BLOOD GAS PO2 61 mmHg (61-120); BLOOD GAS TOTAL HGB 11.2 G/DL (12.0-16.0); TEMP CORR TO 98.6
[2016-06-20 11:11] LABS: CRITICAL VALUE YES; DRAW SITE RT RADIAL; FIO2 50 %; LITER FLOW 6 L/M; OXYGEN DEVICE Venti Mask; STAT NO; ULNAR PULSE PRESENT
--- NOTE | 2016-06-20 11:29 | PD.CONS ---
[facility] Service Nephrology Consult Requested By Reason for Consult Acute on CKD Primary Care Physician Jn Castaneda M.D. History of Present Illness This is a 60 y/o female pt with whom we follow in outpatient setting. PMH of COPD, HTN, DM and hyperlipidemia, she also has CKD IV due to nephrosclerosis. In March of last year her creatinine measured 1.9, GFR 28. She came in for altered mental status with severe confusion. She had missed her BP medications Saturday evening and again Saturday morning, and was admitted to [facility] later on Saturday. On arrival her BP was significantly elevated, she was then started on Nicardipine gtt. Her BP dropped rather quickly, and since the Nicardipine was stopped. On arrival her creatinine was 1.9, which is her baseline, but since then it has increased to 2.9. Her urine output had declined as well, we were consulted for management. today she states she feels much better. BP is on lower end and IVF has been ordered. A raphael is in place, had 300 ml measured on bladder scan prior to insertion. She has no signs of fluid overload, is on oxygen chronically, and is a full code. 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 Past Medical History COPD Rheumatoid arthritis HTN DM CKD Restless leg syndrome Past Surgical History Hysterectomy Bilateral knee replacement Lumbar fusion Tonsillectomy Reported Medications Anoro Ellipta Inh (Umeclidinium/Vilanterol) 62.5-25 Mcg/Act Aero 1 Puff INH DAILY Requip (Ropinirole) 3 Mg Tab 3 Mg PO HS PRN Nifedipine 20 Mg Cap 60 Mg PO Q12HR Multi Vitamin (Multiple Vitamin) 1 Tab Tab 1 Tab PO DAILY Vitamin B-12 Cr (Cyanocobalamin) 1,000 Mcg Tab 1,000 Mcg PO DAILY Metoprolol Tartrate 50 Mg Tab 50 Mg PO BID Lisinopril 5 Mg Tab 5 Mg PO DAILY Isosorbide Mononitrate ER (Isosorbide Mononitrate) 60 Mg Tab 60 Mg PO DAILY Levemir Inj (Insulin Detemir) 1,000 unit/ 10 ML Vial 10 Units SQ BID Do not mix with any other Insulin. Novolog Inj (Insulin Aspart) 1,000 Unit/10 Ml Vial 0 SQ DIRECTED Sliding Scale as directed. Hydralazine (Hydralazine HCl) 100 Mg Tab 100 Mg PO Q8HR Take with meals Gabapentin 100 Mg Cap 200 Mg PO BID Clonidine (Clonidine HCl) 0.1 Mg Tab 0.1 Mg PO Q8HR Caltrate 600+D (Calcium Carbonate-Cholecalciferol) 600-800 Mg-Unit Tab 1 Tab PO DAILY Symbicort Inh (Budesonide/Formoterol Fumarate) 160-4.5 Mcg/Act Aero 2 Puff INH Q12HR Albuterol Neb (Albuterol Sulfate) 2.5 Mg/0.5 Ml Neb 2.5 Mg NEB Q4HR NEB PRN Note: The Albuterol Sulfate Inhalation Solution is concentrated and must be diluted. Read complete instructions carefully before using. Aspirin 81 Mg Tabdr 81 Mg PO DAILY Active Ordered Medications Last 72 hours Impressions Renal Ultrasound 06/19/16 0000 Signed Impressions: Service Date/Time: Sunday, June 19, 2016 14:14 - CONCLUSION: 1. Echogenic kidneys which can be seen with medical renal disease. 2. Small right kidney. 3. Nonvisualization of the bladder. Chavez Harvey MD Head CT 06/18/16811 Signed Impressions: Service Date/Time: Saturday, June 18, 2016 10:09 - CONCLUSION: No acute intracranial abnormality is identified. Nirav Landrum MD Chest X-Ray 06/18/16811 Signed Impressions: Service Date/Time: Saturday, June 18, 2016 09:48 - CONCLUSION: Chronic coarse initial opacities in the lung bases bilaterally suspicious for interstitial lung disease. Otherwise, no acute finding is identified. 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 (Tootie Grant) Physical Exam Vital Signs Vital Signs Date Time Temp Pulse Resp B/P Pulse Ox O2 Delivery O2 Flow Rate FiO2 06/20/16 10:00 65 06/20/16 08:28 94 Venturi Mask 6.00 50 06/20/16 08:00 98.3 58 30 127/62 88 06/20/16 08:00 58 06/20/16 06:00 63 06/20/16 04:00 98.1 68 37 125/64 89 06/20/16 04:00 68 06/20/16 02:00 63 06/20/16 01:20 94 50 06/20/16 00:00 66 06/20/16 00:00 98.4 66 25 97/56 90 06/19/16 22:00 90 06/19/16 20:28 91 Nasal Cannula 6.00 06/19/16 20:00 98.6 70 23 129/63 89 06/19/16 20:00 70 06/19/16 18:00 80 06/19/16 16:00 98.1 74 28 129/68 90 06/19/16 16:00 72 06/19/16 14:00 75 06/19/16 12:00 80 06/19/16 12:00 98.3 78 30 124/76 91 Physical Exam Obese female, awake/alert/oriented Lungs: rhonchi, wheezing throughout bilaterally CV: S1/S2, not tachycardic, no murmurs Abd: obese, soft, non tender Ext: no edema : raphael, clear urine Laboratory Laboratory Tests Test 06/20/16 04:52 White Blood Count 8.9 Red Blood Count 3.86 Hemoglobin 11.4 Hematocrit 33.8 Mean Corpuscular Volume 87.4 Mean Corpuscular Hemoglobin 29.4 Mean Corpuscular Hemoglobin 33.7 Concent Red Cell Distribution Width 15.0 Platelet Count 236 Mean Platelet Volume 7.3 Neutrophils (%) (Auto) 91.6 Lymphocytes (%) (Auto) 4.1 Monocytes (%) (Auto) 4.3 Eosinophils (%) (Auto) 0.0 Basophils (%) (Auto) 0.0 Neutrophils # (Auto) 8.2 Lymphocytes # (Auto) 0.4 Monocytes # (Auto) 0.4 Eosinophils # (Auto) 0.0 Basophils # (Auto) 0.0 CBC Comment DIFF FINAL Differential Comment Sodium Level 135 Potassium Level 4.6 Chloride Level 98 Carbon Dioxide Level 28.3 Anion Gap 9 Blood Urea Nitrogen 51 Creatinine 2.90 Estimat Glomerular Filtration 16 Rate Random Glucose 151 Calcium Level 8.4 Date/Time Procedure Status Source Growth 06/18/16 08:40 Urine Culture - Final Complete Urine Clean Catch Escherichia Coli (Tootie Grant) Result Diagram: 06/20/16 0452 06/20/16 0452 Imaging Last 72 hours Impressions Renal Ultrasound 06/19/16 0000 Signed Impressions: Service Date/Time: Sunday, June 19, 2016 14:14 - CONCLUSION: 1. Echogenic kidneys which can be seen with medical renal disease. 2. Small right kidney. 3. Nonvisualization of the bladder. Chavez Harvey MD Head CT 06/18/16811 Signed Impressions: Service Date/Time: Saturday, June 18, 2016 10:09 - CONCLUSION: No acute intracranial abnormality is identified. Nirav Landrum MD Chest X-Ray 06/18/16811 Signed Impressions: Service Date/Time: Saturday, June 18, 2016 09:48 - CONCLUSION: Chronic coarse initial opacities in the lung bases bilaterally suspicious for interstitial lung disease. Otherwise, no acute finding is identified. Nirav Landrum MD (Tootie Grant) Assessment and Plan Problem List: (1) Acute kidney injury Plan: Acute on CKD IV, baseline creatinine 1.9/GFR 28 KAILEE thought to be to rapid reduction in blood pressure, leading to renal hypoperfusion, may have progressed to ATN at this time hold antihypertensives, agree with IV fluid bolus monitor electrolytes she is non oliguric but noted a drop in urine output overnight, has raphael, monitor output she does have proteinuria that appears new, quantify and obtain serologies avoid nephrotoxins (2) COPD with acute exacerbation Plan: pulmonary following on steroids, continuous oxygen off Bipap since 06/19 (3) Hypertensive crisis Plan: off cardene gtt, now borderline hypotensive hold antihypertensives we have asked her to have family bring an updated list of medications for review (4) Acute delirium Plan: improving, continue supportive measures (5) Diabetes Plan: this may have developed since March check A1c (Tootie Grant) Assessment and Plan patient was seen and examined. Agree with above assessment and plan. Acute on chronic kidney disease due to rapid normalization of BP. Cautious IVF, off Cardene drip. Suspend antihypertensives. (Thomas Blackmon MD) Tootie Grant Jun 20, 2016 11:29 Thomas Blackmon MD Jun 21, 2016 09:56
[2016-06-20 13:59] LABS: TOTAL PROTEIN SPE 6.7 GM/DL (6.0-7.6)
[2016-06-20 16:00] LABS: HEMOGLOBIN A1a 1.6 %; HEMOGLOBIN A1b 1.7 %; HEMOGLOBIN Ao 83.5 %; HEMOGLOBIN LA1C 2.8 %; HEMOGLOBIN P3 5.8 %
[2016-06-20] MEDS: LEVOFLOXACIN 750 MG PREMIX INJ 150 ML IV SCH (16:49)
[2016-06-20] MEDS: hydrALAZINE HCL 20 MG/ML VIAL IVP PRN (20:28)
[2016-06-20] MEDS: ALPRAZolam 0.25 MG TAB PO PRN (20:30)
[2016-06-20] MEDS: ACETAMINOPHEN 325 MG TAB PO PRN (21:53)
[2016-06-21] VITALS (14 sets, daily range): BP systolic 153–175; BP diastolic 68–81; PULSE 64–89; RESP 26–33; TEMP 98.4–99; O2SAT 89–96
[2016-06-21] MEDS ORDERED: traMADol HCL 50 MG TAB PO ONE (01:45)
[2016-06-21] MEDS: hydrALAZINE HCL 20 MG/ML VIAL IVP PRN ×3 (03:07→18:17)
[2016-06-21] MEDS: HEPARIN SODIUM - SQ 10,000 UNITS/ML VIAL SQ SCH ×3 (03:07→22:02)
[2016-06-21] MEDS: RESP: ALBUTEROL 2.5 MG/IPRATROPIUM 0.5 MG NEB (SCH) NEB ×4 (03:23→20:38)
[2016-06-21] MEDS: CHLORHEXIDINE GLUCONATE 2 % 1 PACK (2 CLOTHS)(taper/protocol) TOP SCH ×2 (04:00→22:03)
[2016-06-21 06:26] LABS: AUTOMATED NEUTROPHIL # 8.1 TH/MM3 (1.8-7.7); BASOPHIL % 0.1 % (0.0-2.0); HEMATOCRIT 34.2 % (35.0-46.0); HEMO FLAGS DIFF FINAL; LYMPH % 6.4 % (9.0-44.0); LYMPHOCYTE # 0.6 TH/MM3 (1.0-4.8); MEAN CORPUSCULAR HEMOGLOBIN 29.2 PG (27.0-34.0); MEAN CORPUSCULAR HGB CONC 32.8 % (32.0-36.0); NEUT % 88.5 % (16.0-70.0); PLATELET COUNT 232 TH/MM3 (150-450); RED BLOOD COUNT 3.84 MIL/MM3 (4.00-5.30); RED CELL DISTRIBUTION WIDTH 14.8 % (11.6-17.2); WHITE BLOOD COUNT 9.1 TH/MM3 (4.0-11.0)
[2016-06-21 06:37] LABS: BICARBONATE 22.5 MEQ/L (21.0-32.0); POTASSIUM 4.4 MEQ/L (3.5-5.1)
[2016-06-21] MEDS: INSULIN ASPART SUPPLEMENTAL SCALE SQ SCH ×4 (07:00→21:00)
[2016-06-21 07:26] LABS: NUMBER OF ARTERIAL PUNCTURES 1
[2016-06-21] MEDS ORDERED: METOPROLOL TARTRATE 5 MG/5 ML VIAL IV PUSH PRN (08:00)
[2016-06-21] MEDS: CYANOCOBALAMIN 1,000 MCG TAB PO SCH (08:11)
[2016-06-21] MEDS: BUDESONIDE-FORMOTEROL 160/4.5 MCG INHALER INH SCH ×2 (08:12→21:00)
[2016-06-21] MEDS: METOPROLOL TARTRATE 50 MG TAB PO SCH ×2 (08:12→22:01)
[2016-06-21] MEDS: ASPIRIN EC 81 MG TABEC PO SCH (08:12)
[2016-06-21] MEDS: INSULIN DETEMIR 100 UNITS/ML VIAL SQ SCH ×2 (08:12→22:02)
[2016-06-21] MEDS: ALPRAZolam 0.25 MG TAB PO PRN ×2 (08:12→18:16)
[2016-06-21] MEDS: MULTIVITAMIN TAB PO SCH (08:12)
[2016-06-21] MEDS: CALCIUM/VITAMIN D 250 MG/125 U TAB PO SCH (08:12)
[2016-06-21] MEDS: methylPREDNISolone SOD SUCC 40 MG/1 ML VIAL IV PUSH SCH ×2 (08:12→22:01)
[2016-06-21] MEDS: SODIUM CHLORIDE 0.9% FLUSH 5 ML FLUSH FLUSH SCH ×2 (08:13→22:02)
[2016-06-21] MEDS: SODIUM CHLOR 0.9% 1000 ML INJ 1,000 ML IV SCH (09:50)
[2016-06-21] MEDS: DOCUSATE SODIUM 100 MG CAP PO SCH ×2 (10:53→21:00)
[2016-06-21] MEDS: ISOSORBIDE MONONITRATE 60 MG TAB PO SCH (10:53)
--- NOTE | 2016-06-21 11:42 | HHI.PR ---
Subjective Remarks Patient in nad. No chest pain. With sob, productive cough of whitish sputum. Feels tired. Says mask helps. No n/v/d/c. Denies fever or chills. Objective Vitals Vital Signs Date Time Temp Pulse Resp B/P Pulse Ox O2 Delivery O2 Flow Rate FiO2 06/21/16 10:00 78 06/21/16 09:58 96 High Flow Nasal Cannula 15.00 65 06/21/16 08:00 99.0 82 29 170/81 93 06/21/16 08:00 82 06/21/16 06:00 89 06/21/16 04:00 80 06/21/16 04:00 98.5 80 33 155/68 92 06/21/16 03:09 25 06/21/16 02:00 68 06/21/16 00:00 64 06/21/16 00:00 98.4 64 32 155/76 92 06/20/16 23:30 28 06/20/16 23:05 93 High Flow Nasal Cannula 20.00 68 06/20/16 22:00 71 06/20/16 21:31 93 High Flow Nasal Cannula 20.00 68 06/20/16 20:00 69 06/20/16 20:00 98.6 69 25 162/78 95 06/20/16 18:00 68 06/20/16 16:22 93 High Flow Nasal Cannula 20.00 06/20/16 16:00 67 06/20/16 16:00 98.7 65 32 113/61 90 06/20/16 14:00 68 06/20/16 12:00 65 06/20/16 12:00 98.6 68 30 127/62 88 I/O 06/20/16 06/20/16 06/20/16 06/21/16 06/21/16 06/21/16 07:00 15:00 23:00 07:00 15:00 23:00 Intake Total 120 ml 166 ml 1269 ml 745 ml Output Total 100 ml 200 ml 350 ml 400 ml Balance 20 ml -34 ml 919 ml 345 ml Intake Oral 100 ml 500 ml 240 ml IV Total 20 ml 166 ml 769 ml 505 ml Output Urine Total 100 ml 200 ml 350 ml 400 ml # Bowel Movements 0 0 Result Diagram: 3/9/17 0457 3/9/17 0457 Imaging Last Impressions Renal Ultrasound 06/19/16 0000 Signed Impressions: Service Date/Time: Sunday, June 19, 2016 14:14 - CONCLUSION: 1. Echogenic kidneys which can be seen with medical renal disease. 2. Small right kidney. 3. Nonvisualization of the bladder. Chavez Harvey MD Head CT 06/18/16811 Signed Impressions: Service Date/Time: Saturday, June 18, 2016 10:09 - CONCLUSION: No acute intracranial abnormality is identified. Nirav Landrum MD Chest X-Ray 06/18/16811 Signed Impressions: Service Date/Time: Saturday, June 18, 2016 09:48 - CONCLUSION: Chronic coarse initial opacities in the lung bases bilaterally suspicious for interstitial lung disease. Otherwise, no acute finding is identified. Nirav Landrum MD Objective Remarks GENERAL: 60 yo female, with sob, well nourished, well developed patient. SKIN: No rashes, ecchymoses or lesions. Cool and dry. HEAD: Atraumatic. Normocephalic. No temporal or scalp tenderness. EYES: Pupils equal round and reactive. Extraocular motions intact. No scleral icterus. No injection or drainage. ENT: Nose without bleeding, purulent drainage or septal hematoma. Throat without erythema, tonsillar hypertrophy or exudate. Uvula midline. Airway patent. NECK: Trachea midline. No JVD or lymphadenopathy. Supple, nontender, no meningeal signs. CARDIOVASCULAR: Tachycardic without murmurs, gallops, or rubs. RESPIRATORY: Decreased breath sounds. Diffuse rhonchi. GASTROINTESTINAL: Abdomen soft, non-tender, nondistended. No hepato-splenomegaly , or palpable masses. No guarding. MUSCULOSKELETAL: Extremities without clubbing, cyanosis, or edema. No joint tenderness, effusion, or edema noted. NEUROLOGICAL: Awake and alert. Cranial nerves II through XII intact. Motor and sensory grossly within normal limits. Five out of 5 muscle strength in all muscle groups. Normal speech. PSYCH: Some confusion. A/P Assessment and Plan Acute respiratory failure on chronic respiratory failure/ Sepsis/ COPD/ Pneumonia The patient is on home oxygen at night. She was on a Ventimask in the emergency department and is on/off ventimask, continue to taper down as tolerated. Chest x-ray shows chronic coarse interstitial opacities in the bilateral bases. ABG 06/20 with hypohia and was placed on ventimask Off BiPAP since 3.7, desating on 6L NC repeat ABG On Solu-Medrol, duonebs, continue to taper down as tolerated. Continue Symbicort. Continue IV Levaquin. Sputum culture and Gram stain pending. IV fluids. Monitor patient in the ICU. Smoking cessation, counseled. PT/OT consult Consult pulmonology Hypertensive emergency/ Labile BP Systolic blood pressure well into the 200s on presentation. CT of the head was unremarkable. Resume home medication regimen. Cardene drip as needed. Hydralazine , lopresor IV as need with parameters of administration Metabolic encephalopathy, resolving The patient has a UTI, pneumonia. Likely the patient has hypercarbic respiratory failure. Check an ABG and start BiPAP as indicated. DC Levaquin and start ceftriaxone and azithromycin for infections. Check a vitamin B12 level, ammonia level and TSH. PT/OT/ST. Hold gabapentin and Requip. Acute on Chronic renal disease UTI with E Coli KAILEE on CKD. Creatinine , BUN increased form baseline. UA indicative of infection. kidney US reviewed consistent with CKD. Patient also with decreased UOP. Give bolus 500 NS. Start IVF. Consult his nephrology doctor Neymar. Discussed with Dr Blackmon appreciate recommendations. DC levaquin 750 mg Q48 hrs. Start ceftriaxone IV Follow BMP and avoid nephrotoxic agents as possible. Bonilla in place. Restless leg syndrome The patient requests to be resumed on Requip. Hold off on Requip and other sedating medications in the setting of encephalopathy and resume as indicated. PPx: Heparin. Code Status Full code. Discussed Condition With Patient, nurse. Discharge Planning Pending improvement. Stacey Henson MD Jun 21, 2016 11:42
[2016-06-21 11:46] LABS: ALBUMIN SPE 3.95 GM/DL (3.50-5.00); ALPHA 1 GLOBULIN 0.22 GM/DL (0.11-0.29); ALPHA 2 GLOBULIN 0.76 GM/DL (0.22-1.00)
[2016-06-21] MEDS ORDERED: AZITHROMYCIN INJ 500 MG in SODIUM CHLOR 0.9% 250 ML INJ 250 ML IV SCH (12:00)
--- NOTE | 2016-06-21 12:04 | HHI.NPPN ---
Subjective Renal Failure: Chronic, Stage III Interval History Renal function is better. Tolerating po fluids. Good urine output. (Tootie Grant) Review of Systems General Constitutional: Fatigue (Tootie Grant) Respiratory Lungs: SOB, Cough (Tootie Grant) Objective Data Data 06/20/16 06/21/16 19:00 07:00 Intake Total 166 ml 2014 ml Output Total 200 ml 750 ml Balance -34 ml 1264 ml Intake Oral 740 ml IV Total 166 ml 1274 ml Output Urine Total 200 ml 750 ml # Bowel Movements 0 Vital Signs Date Time Temp Pulse Resp B/P Pulse Ox O2 Delivery O2 Flow Rate FiO2 06/21/16 10:00 78 06/21/16 09:58 96 High Flow Nasal Cannula 15.00 65 06/21/16 08:00 99.0 82 29 170/81 93 06/21/16 08:00 82 06/21/16 06:00 89 06/21/16 04:00 80 06/21/16 04:00 98.5 80 33 155/68 92 06/21/16 03:09 25 06/21/16 02:00 68 06/21/16 00:00 64 06/21/16 00:00 98.4 64 32 155/76 92 06/20/16 23:30 28 06/20/16 23:05 93 High Flow Nasal Cannula 20.00 68 06/20/16 22:00 71 06/20/16 21:31 93 High Flow Nasal Cannula 20.00 68 06/20/16 20:00 69 06/20/16 20:00 98.6 69 25 162/78 95 06/20/16 18:00 68 06/20/16 16:22 93 High Flow Nasal Cannula 20.00 06/20/16 16:00 67 06/20/16 16:00 98.7 65 32 113/61 90 06/20/16 14:00 68 (Tootie Grant) -: 06/21/16 0457 06/21/16 0457 Imaging Last 72 hours Impressions Renal Ultrasound 06/19/16 0000 Signed Impressions: Service Date/Time: Sunday, June 19, 2016 14:14 - CONCLUSION: 1. Echogenic kidneys which can be seen with medical renal disease. 2. Small right kidney. 3. Nonvisualization of the bladder. Chavez Harvey MD (Tootie Grant [employer]. [employer]) Physical Exam General Appearance: Well Developed, Well Nourished, No Acute Distress, Obese (Rudy Tootie [employer]. [employer] SAL[employer]ANT) Throat Throat Exam: Oral Mucosa [place] & Moist (RudyTootie [employer]. [employer] SALES [employer]SULTANT) Neck Neck Exam: Neck Supple (Easton Granton [employer]. [employer] SALES CONSULTANT) Pulmonary Resp Exam: No Distress, Crackles, Rhonchi (RudyTootie [employer]. [employer] SALES CONSULTANT) Cardiology CV Exam: Normal Sinus Rhythm, Good Perfusion (Tootie Grant [employer]. [employer] SALES [employer]ANT) Gastrointestinal/Abdomen GI Exam: Soft, Non-Tender, Bowel Sounds Present, Positive Bowel Movement ( Tootie Grant [employer]. [employer] SALES [employer]ANT) Genitourinary Exam: Clear Urine (Tootie Grant [employer]. [employer] SALES CONSULTANT) Musculoskeletal MS Exam: Joints Intact, Normal Tone (Tootie Grant [employer]. [employer] SALES CONSULTANT) Integumentary Skin Exam: Clear, Warm, Dry, Intact (Easton Granton [employer]. [employer] SALES CONSULTANT) Extremeties Extremities Exam: No Edema, Pedal Pulses Palpable (Easton Granton [employer]. [employer] SALES CONSULTANT) Neurologic Neuro Exam: Alert, Awake, Oriented, Speech Clear, Moving All Extremities ( Tootie Grant [employer]. [employer] SAL[employer]ANT) Psychiatric Psych Exam: Appropriate Responses (Tootie Grant [employer]. [employer] SALES [employer]ANT) Assessment/Plan Discussed Condition With: Patient Assessment Summary: Hypertension Problem List: (1) Acute kidney injury Plan: Acute on CKD IV, baseline creatinine 1.9/GFR 28 KAILEE prerenal from a rapid reduction in blood pressure, leading to renal hypoperfusion, may have progressed to ATN renal function is better tolerating PO fluids, will stop IVF remove raphael monitor electrolytes she is non oliguric she does have proteinuria that appears new, quantify and obtain serologies avoid nephrotoxins (2) COPD with acute exacerbation Plan: pulmonary following on steroids, continuous oxygen off Bipap since 06/19 (3) Hypertensive crisis Plan: resume antihypertensives except for lisinopril we have asked her to have family bring an updated list of medications for review (4) Acute delirium Plan: improving, continue supportive measures (5) Diabetes Plan: A1c 5.7, hyperglycemia may be steroid induced (Tootie Grant) Plan patient was seen and examined. Agree with above assessment and plan. Restart antihypertensives. Stop IVF. (Thomas Blackmon MD) Tootie Grant Jun 21, 2016 12:04 Thomas Blackmon MD Jun 22, 2016 15:19
[2016-06-21] MEDS: hydrALAZINE HCL 100 MG TAB PO SCH ×2 (13:00→22:03)
[2016-06-21] MEDS ORDERED: cefTRIAXone INJ 1,000 MG in SODIUM CHLORIDE 0.9% INJ 100 ML IV SCH (14:00)
[2016-06-21] MEDS: CEFUROXIME AXETIL 500 MG TAB PO SCH (22:01)
[2016-06-22] VITALS (8 sets, daily range): BP systolic 148–180; BP diastolic 76–87; PULSE 68–87; RESP 18–25; TEMP 98–98.8; O2SAT 91–92
[2016-06-22] MEDS: ACETAMINOPHEN 325 MG TAB PO PRN (01:23)
[2016-06-22] MEDS: HEPARIN SODIUM - SQ 10,000 UNITS/ML VIAL SQ SCH (04:23)
[2016-06-22] MEDS: hydrALAZINE HCL 20 MG/ML VIAL IVP PRN (04:23)
[2016-06-22] MEDS: INSULIN ASPART SUPPLEMENTAL SCALE SQ SCH ×2 (06:17→11:17)
[2016-06-22] MEDS: hydrALAZINE HCL 100 MG TAB PO SCH ×2 (06:17→12:04)
--- NOTE | 2016-06-22 07:35 | HHI.PR ---
Subjective Remarks In the chair, awaiting for breakfast. She is saturating well currently 3 L by nasal cannula. Says she has oxygen at home. States she doesn't have pulmonology and will like to follow up with Dr. Arriaza. No chest pain or shortness of breath at this time. Wants to go home. Objective Vitals Vital Signs Date Time Temp Pulse Resp B/P Pulse Ox O2 Delivery O2 Flow Rate FiO2 06/22/16 06:00 78 06/22/16 04:15 20 06/22/16 04:00 98.8 87 20 180/78 92 06/22/16 04:00 87 06/22/16 04:00 92 Nasal Cannula 5.00 06/22/16 02:00 82 06/22/16 00:00 92 Nasal Cannula 5.00 06/22/16 00:00 98.6 81 25 180/87 92 06/22/16 00:00 81 06/21/16 22:00 79 06/21/16 20:35 93 Nasal Cannula 5.00 06/21/16 20:00 92 Nasal Cannula 5.00 06/21/16 20:00 98.7 72 28 164/81 92 06/21/16 20:00 72 06/21/16 18:00 73 06/21/16 16:00 92 Nasal Cannula 6.00 06/21/16 16:00 98.4 69 26 153/73 92 06/21/16 16:00 69 06/21/16 14:00 82 06/21/16 12:00 66 06/21/16 12:00 89 Nasal Cannula 50 06/21/16 12:00 98.9 66 26 175/81 89 06/21/16 10:00 78 06/21/16 09:58 96 High Flow Nasal Cannula 15.00 65 06/21/16 08:00 99.0 82 29 170/81 93 06/21/16 08:00 93 Nasal Cannula 65 06/21/16 08:00 82 I/O 06/21/16 06/21/16 06/21/16 06/22/16 06/22/16 06/22/16 07:00 15:00 23:00 07:00 15:00 23:00 Intake Total 745 ml 440 ml 150 ml Output Total 400 ml 550 ml 500 ml 450 ml Balance 345 ml -110 ml -350 ml -450 ml Intake Oral 240 ml 240 ml 150 ml IV Total 505 ml 200 ml Output Urine Total 400 ml 550 ml 500 ml 450 ml # Bowel Movements 0 1 Result Diagram: 06/21/16 0457 06/21/16 0457 Imaging Last Impressions Renal Ultrasound 06/19/16 0000 Signed Impressions: Service Date/Time: Sunday, June 19, 2016 14:14 - CONCLUSION: 1. Echogenic kidneys which can be seen with medical renal disease. 2. Small right kidney. 3. Nonvisualization of the bladder. Chavez Harvey MD Head CT 06/18/16811 Signed Impressions: Service Date/Time: Saturday, June 18, 2016 10:09 - CONCLUSION: No acute intracranial abnormality is identified. Nirav Landrum MD Chest X-Ray 06/18/16811 Signed Impressions: Service Date/Time: Saturday, June 18, 2016 09:48 - CONCLUSION: Chronic coarse initial opacities in the lung bases bilaterally suspicious for interstitial lung disease. Otherwise, no acute finding is identified. Nirav Landrum MD Objective Remarks GENERAL: 60 yo female, with sob, well nourished, well developed patient. SKIN: No rashes, ecchymoses or lesions. Cool and dry. HEAD: Atraumatic. Normocephalic. No temporal or scalp tenderness. EYES: Pupils equal round and reactive. Extraocular motions intact. No scleral icterus. No injection or drainage. ENT: Nose without bleeding, purulent drainage or septal hematoma. Throat without erythema, tonsillar hypertrophy or exudate. Uvula midline. Airway patent. NECK: Trachea midline. No JVD or lymphadenopathy. Supple, nontender, no meningeal signs. CARDIOVASCULAR: Tachycardic without murmurs, gallops, or rubs. RESPIRATORY: Decreased breath sounds. Diffuse rhonchi. GASTROINTESTINAL: Abdomen soft, non-tender, nondistended. No hepato-splenomegaly , or palpable masses. No guarding. MUSCULOSKELETAL: Extremities without clubbing, cyanosis, or edema. No joint tenderness, effusion, or edema noted. NEUROLOGICAL: Awake and alert. Cranial nerves II through XII intact. Motor and sensory grossly within normal limits. Five out of 5 muscle strength in all muscle groups. Normal speech. PSYCH: Some confusion. A/P Assessment and Plan Acute respiratory failure on chronic respiratory failure/ Sepsis/ COPD/ Pneumonia The patient is on home oxygen at night. She was on a Ventimask in the emergency department and is on/off ventimask, continue to taper down as tolerated. Chest x-ray shows chronic coarse interstitial opacities in the bilateral bases. ABG 06/20 with hypohia and was placed on ventimask Off BiPAP since 3.7, desating on 6L NC repeat ABG On Solu-Medrol, duonebs, continue to taper down as tolerated. Continue Symbicort. Continue IV Levaquin. Sputum culture and Gram stain pending. IV fluids. Monitor patient in the ICU. Smoking cessation, counseled. PT/OT consult Consult pulmonology Hypertensive emergency/ Labile BP Systolic blood pressure well into the 200s on presentation. CT of the head was unremarkable. Resume home medication regimen. Cardene drip as needed. Hydralazine , lopresor IV as need with parameters of administration Metabolic encephalopathy, resolving The patient has a UTI, pneumonia. Likely the patient has hypercarbic respiratory failure. Check an ABG and start BiPAP as indicated. DC Levaquin and start ceftriaxone and azithromycin for infections. Check a vitamin B12 level, ammonia level and TSH. PT/OT/ST. Hold gabapentin and Requip. Acute on Chronic renal disease UTI with E Coli KAILEE on CKD. Creatinine , BUN increased form baseline. UA indicative of infection. kidney US reviewed consistent with CKD. Patient also with decreased UOP. Give bolus 500 NS. Start IVF. Consult his nephrology doctor Neymar. Discussed with Dr Blackmon appreciate recommendations. DC levaquin 750 mg Q48 hrs. Start ceftriaxone IV Follow BMP and avoid nephrotoxic agents as possible. Bonilla in place. Restless leg syndrome The patient requests to be resumed on Requip. Hold off on Requip and other sedating medications in the setting of encephalopathy and resume as indicated. PPx: Heparin. Code Status Full code. Discussed Condition With Patient, nurse, Dr Real godinez Improved. Discussed with Dr Real godinez , cleared the patient for DC to follow up as OP with PCP and consultants. Patient has O2 at home. Discharge Planning Pending improvement. Stacey Henson MD Jun 22, 2016 07:35
[2016-06-22] MEDS: ISOSORBIDE MONONITRATE 60 MG TAB PO SCH (07:49)
[2016-06-22] MEDS: ASPIRIN EC 81 MG TABEC PO SCH (07:50)
[2016-06-22] MEDS: CALCIUM/VITAMIN D 250 MG/125 U TAB PO SCH (07:50)
[2016-06-22] MEDS: DOCUSATE SODIUM 100 MG CAP PO SCH (07:50)
[2016-06-22] MEDS: CYANOCOBALAMIN 1,000 MCG TAB PO SCH (07:50)
[2016-06-22] MEDS: METOPROLOL TARTRATE 50 MG TAB PO SCH (07:50)
[2016-06-22] MEDS: MULTIVITAMIN TAB PO SCH (07:50)
[2016-06-22] MEDS: INSULIN DETEMIR 100 UNITS/ML VIAL SQ SCH (07:51)
[2016-06-22] MEDS: BUDESONIDE-FORMOTEROL 160/4.5 MCG INHALER INH SCH (07:51)
[2016-06-22] MEDS: RESP: ALBUTEROL 2.5 MG/IPRATROPIUM 0.5 MG NEB (SCH) NEB (08:19)
[2016-06-22] MEDS ORDERED: predniSONE 10 MG TAB PO SCH (09:00)
[2016-06-22] MEDS: CEFUROXIME AXETIL 500 MG TAB PO SCH (09:50)
[2016-06-22] MEDS: SODIUM CHLORIDE 0.9% FLUSH 5 ML FLUSH FLUSH SCH (09:50)
[2016-06-22 10:31] LABS: ALKALINE PHOSPHATASE 91 U/L (45-117); ALT (GPT) 13 U/L (10-53); ANION GAP 9 MEQ/L (5-15); AST (GOT) 24 U/L (15-37); BICARBONATE 25.2 MEQ/L (21.0-32.0); BLOOD UREA NITROGEN 49 MG/DL (7-18); CHLORIDE 103 MEQ/L (98-107); GLOMERULAR FILTRATION RATE 22 ML/MIN (>89); POTASSIUM 5.3 MEQ/L (3.5-5.1); SODIUM (NA) 137 MEQ/L (136-145); TOTAL BILIRUBIN ADULT 0.3 MG/DL (0.2-1.0)
[2016-06-22] MEDS ORDERED: CEFT500T3 PO (11:33)
[2016-06-22] MEDS ORDERED: PRED10PA PO (11:33)
--- NOTE | 2016-06-22 11:35 | HHI.FF ---
Face to Face Verification Diagnosis: (1) Lumbar spine instability (2) Fever (3) Dyspnea (4) Pain (5) Lumbar spinal stenosis (6) Cough (7) Anemia (8) CAP (community acquired pneumonia) (9) Acute renal failure (10) Acute kidney failure with lesion of tubular necrosis (11) DM (diabetes mellitus) (12) CKD (chronic kidney disease) (13) Accelerated hypertension (14) Chronic kidney disease (CKD) (15) Encephalopathy (16) Dehydration (17) Diabetes (18) Acute kidney injury (19) Compression fracture of thoracic vertebra (20) Hyponatremia (21) COPD (chronic obstructive pulmonary disease) (22) Acute respiratory failure (23) COPD with acute exacerbation (24) HCAP (healthcare-associated pneumonia) Physical Therapy Order: Evaluate and Treat Home Health Nursing Order: Medical education Signs/symptoms of disease process Medication education-adverse effect Nursing assessment with vital signs I have seen patient Rachana Vigil on 06/22/16. My clinical findings support the need for the requested home health care services because: Ltd mobility - disease progression I certify that my clinical findings support that this patient is homebound because: Post-op weakness Stacey Henson MD Jun 22, 2016 11:35
--- NOTE | 2016-06-22 11:36 | HHI.DS ---
Discharge Summary Admission Date Jun 18, 2016 at 15:46 Discharge Date: Jun 22, 2016 Admitting Diagnosis Acute Delirium, UTI (1) COPD with acute exacerbation ICD Code: J44.1 Diagnosis: Principal (2) UTI (urinary tract infection) ICD Code: N39.0 Diagnosis: Principal (3) Acute renal failure ICD Code: N17.9 Diagnosis: Principal (4) CAP (community acquired pneumonia) ICD Code: J18.9 Diagnosis: Secondary (5) Urinary retention ICD Code: R33.9 Diagnosis: Secondary (6) DM (diabetes mellitus) ICD Code: E11.9 Diagnosis: Secondary (7) Accelerated hypertension ICD Code: I10 Diagnosis: Secondary (8) Chronic kidney disease (CKD) ICD Code: N18.9 Diagnosis: Secondary (9) Compression fracture of thoracic vertebra ICD Code: S22.000A Diagnosis: Secondary (10) Hyponatremia ICD Code: E87.1 Diagnosis: Secondary (11) COPD (chronic obstructive pulmonary disease) ICD Code: J44.9 Diagnosis: Secondary (12) HCAP (healthcare-associated pneumonia) ICD Code: J18.9 Diagnosis: Secondary (13) Acute respiratory failure ICD Code: J96.00 Diagnosis: Secondary Procedures none Brief History - From Admission The patient is a 60-year-old female with a past medical history of COPD on home oxygen who is presenting to the hospital with confusion. The patient's daughter states that the patient has been confused since yesterday. The patient also endorses confusion since yesterday. The patient says that she didn 't know who her daughter was yesterday. The patient has also been urinating frequently so they thought that the patient may have a urinary tract infection. Reportedly the patient has been eating and drinking well. The patient denies any shortness of breath or chest pain. She also denies any fever. She says she lives with her daughter and has been going to physical therapy. She says she is on home oxygen but only uses it at night. She does endorse some sputum production and describes the sputum as clear in color. The patient says she has restless leg syndrome and is currently requesting her Requip. The patient also mentions that she take steroids on a daily basis. She says she does not follow-up with a general machinist. She says she deals with chronic back pain since having back surgery a couple of years ago. CBC/BMP: 06/21/16 0457 06/22/16 0941 Significant Findings Laboratory Tests Test 06/20/16 06/20/16 06/20/16 06/21/16 04:52 10:57 12:40 04:57 Red Blood Count 3.86 MIL/MM3 3.84 MIL/MM3 (4.00-5.30) (4.00-5.30) Hemoglobin 11.4 GM/DL 11.2 GM/DL (11.6-15.3) (11.6-15.3) Hematocrit 33.8 % 34.2 % (35.0-46.0) (35.0-46.0) Neutrophils (%) (Auto) 91.6 % 88.5 % (16.0-70.0) (16.0-70.0) Lymphocytes (%) (Auto) 4.1 % 6.4 % (9.0-44.0) (9.0-44.0) Neutrophils # (Auto) 8.2 TH/MM3 8.1 TH/MM3 (1.8-7.7) (1.8-7.7) Lymphocytes # (Auto) 0.4 TH/MM3 0.6 TH/MM3 (1.0-4.8) (1.0-4.8) Sodium Level 135 MEQ/L (136-145) Blood Urea Nitrogen 51 MG/DL (7-18) 59 MG/DL (7-18) Creatinine 2.90 MG/DL 2.61 MG/DL (0.50-1.00) (0.50-1.00) Estimat Glomerular Filtration 16 ML/MIN (>89) 19 ML/MIN (>89) Rate Random Glucose 151 MG/DL 122 MG/DL (74-106) (74-106) Calcium Level 8.4 MG/DL 7.9 MG/DL (8.5-10.1) (8.5-10.1) Blood Gas Base Excess -2.4 mmol/L (-2-2) Blood Gas Oxygen Saturation 87 % (90-100) Blood Gas Hemoglobin 11.2 G/DL (12.0-16.0) Beta Globulins 1.30 GM/DL (0.53-1.03) Gamma Globulins 0.48 GM/DL (0.50-1.39) Test 06/21/16 06/22/16 11:00 09:41 Urine Random Total Protein 59 MG/DL (0-11.8) Urine Protein/Creatinine Ratio 0.59 (0.00-0.14) Potassium Level 5.3 MEQ/L (3.5-5.1) Blood Urea Nitrogen 49 MG/DL (7-18) Creatinine 2.25 MG/DL (0.50-1.00) Estimat Glomerular Filtration 22 ML/MIN (>89) Rate Random Glucose 164 MG/DL (74-106) Calcium Level 8.1 MG/DL (8.5-10.1) Albumin 2.8 GM/DL (3.4-5.0) Imaging Last Impressions Renal Ultrasound 06/19/16 0000 Signed Impressions: Service Date/Time: Sunday, June 19, 2016 14:14 - CONCLUSION: 1. Echogenic kidneys which can be seen with medical renal disease. 2. Small right kidney. 3. Nonvisualization of the bladder. Chavez Harvey MD Head CT 06/18/16811 Signed Impressions: Service Date/Time: Saturday, June 18, 2016 10:09 - CONCLUSION: No acute intracranial abnormality is identified. Nirav Landrum MD Chest X-Ray 06/18/16811 Signed Impressions: Service Date/Time: Saturday, June 18, 2016 09:48 - CONCLUSION: Chronic coarse initial opacities in the lung bases bilaterally suspicious for interstitial lung disease. Otherwise, no acute finding is identified. Nirav Landrum MD PE at Discharge GENERAL: 60 yo female, with sob, well nourished, well developed patient. SKIN: No rashes, ecchymoses or lesions. Cool and dry. HEAD: Atraumatic. Normocephalic. No temporal or scalp tenderness. EYES: Pupils equal round and reactive. Extraocular motions intact. No scleral icterus. No injection or drainage. ENT: Nose without bleeding, purulent drainage or septal hematoma. Throat without erythema, tonsillar hypertrophy or exudate. Uvula midline. Airway patent. NECK: Trachea midline. No JVD or lymphadenopathy. Supple, nontender, no meningeal signs. CARDIOVASCULAR: Tachycardic without murmurs, gallops, or rubs. RESPIRATORY: Decreased breath sounds. Diffuse rhonchi. GASTROINTESTINAL: Abdomen soft, non-tender, nondistended. No hepato-splenomegaly , or palpable masses. No guarding. MUSCULOSKELETAL: Extremities without clubbing, cyanosis, or edema. No joint tenderness, effusion, or edema noted. NEUROLOGICAL: Awake and alert. Cranial nerves II through XII intact. Motor and sensory grossly within normal limits. Five out of 5 muscle strength in all muscle groups. Normal speech. PSYCH: Some confusion. Hospital Course Acute respiratory failure on chronic respiratory failure/ Sepsis/ COPD/ Pneumonia The patient is on home oxygen at night. She was on a Ventimask in the emergency department and is on/off ventimask, continue to taper down as tolerated. Chest x-ray shows chronic coarse interstitial opacities in the bilateral bases. ABG 3 with hypohia and was placed on ventimask Off BiPAP since 3.7, desating on 6L NC repeat ABG On Solu-Medrol, duonebs, continue to taper down as tolerated. Continue Symbicort. Continue IV Levaquin. Sputum culture and Gram stain pending. IV fluids. Monitor patient in the ICU. Smoking cessation, counseled. PT/OT consult Consult pulmonology Hypertensive emergency/ Labile BP Systolic blood pressure well into the 200s on presentation. CT of the head was unremarkable. Resume home medication regimen. Cardene drip as needed. Hydralazine , lopresor IV as need with parameters of administration Metabolic encephalopathy, resolving The patient has a UTI, pneumonia. Likely the patient has hypercarbic respiratory failure. Check an ABG and start BiPAP as indicated. DC Levaquin and start ceftriaxone and azithromycin for infections. Check a vitamin B12 level, ammonia level and TSH. PT/OT/ST. Hold gabapentin and Requip. Acute on Chronic renal disease UTI with E Coli KAILEE on CKD. Creatinine , BUN increased form baseline. UA indicative of infection. kidney US reviewed consistent with CKD. Patient also with decreased UOP. Give bolus 500 NS. Start IVF. Consult his nephrology doctor Neymar. Discussed with Dr Blackmon appreciate recommendations. DC levaquin 750 mg Q48 hrs. Start ceftriaxone IV Follow BMP and avoid nephrotoxic agents as possible. Bonilla in place. Restless leg syndrome The patient requests to be resumed on Requip. Hold off on Requip and other sedating medications in the setting of encephalopathy and resume as indicated. PPx: Heparin. Code Status Full code. Discussed Condition With Patient, nurse, Dr Real godinez Improved. Discussed with Dr Real godinez , cleared the patient for DC to follow up as OP with PCP and consultants. Patient has O2 at home. She was discharged home in fairly stable condition. Pt Condition on Discharge: Stable Discharge Disposition: Disch w/ Home Health Serv Discharge Time: > 30 minutes Discharge Instructions DIET: Follow Instructions for: Heart Healthy Diet, Diabetic Diet Speech Therapy-Diet Recommends: Mechanical Soft Activities you can perform: Regular-No Restrictions Follow up Referrals: PCP Follow-up - 3-5 Days Pulmonology - 1 Week with Flor Noble MD New Medications: Prednisone (21) 10 mg tab Dose Pack (Prednisone (21) 10 mg tab Dose Pack) 10 Mg Pack 10 MG PO DIRECTED Inflammation #1 Ref 0 DSPK Cefuroxime (Ceftin) 500 Mg Tab 500 MG PO Q12HR PNA #14 TAB Continued Medications: Albuterol Neb (Albuterol Neb) 2.5 Mg/0.5 Ml Neb 2.5 MG NEB Q4HR NEB Note: The Albuterol Sulfate Inhalation Solution is concentrated and must be diluted. Read complete instructions carefully before using. PRN SHORTNESS OF BREATH EA Aspirin (Aspirin) 81 Mg Tabdr 81 MG PO DAILY TAB Budesonide-Formoterol Inh (Symbicort Inh) 160-4.5 Mcg/Act Aero 2 PUFF INH Q12HR #1 Ref 0 INHALER Calcium Carbonate-Cholecalciferol (Caltrate 600+D) 600-800 Mg-Unit Tab 1 TAB PO DAILY Calcium Supplement Ref 0 TAB Clonidine (Clonidine) 0.1 Mg Tab 0.1 MG PO Q8HR Blood Pressure Management #60 Ref 0 TAB Cyanocobalamin ER (Vitamin B-12 Cr) 1,000 Mcg Tab 1000 MCG PO DAILY Nutritional Supplement #1 Ref 0 BOTTLE Gabapentin (Gabapentin) 100 Mg Cap 200 MG PO BID #60 Ref 0 CAP Hydralazine (Hydralazine) 100 Mg Tab 100 MG PO Q8HR Take with meals Blood Pressure Management Ref 0 TAB Insulin Aspart Inj (Novolog Inj) 1,000 Unit/10 Ml Vial 0 SQ DIRECTED Sliding Scale as directed. Blood Sugar Management #10 Ref 0 ML Insulin Detemir Inj (Levemir Inj) 1,000 unit/ 10 ML Vial 10 UNITS SQ BID Do not mix with any other Insulin. Blood Sugar Management Ref 0 VIAL Isosorbide Mononitrate ER (Isosorbide Mononitrate ER) 60 Mg Tab 60 MG PO DAILY Prevent Chest Pain #30 Ref 0 TAB Lisinopril (Lisinopril) 5 Mg Tab 5 MG PO DAILY Blood Pressure Management #30 Ref 0 TAB Metoprolol Tartrate (Metoprolol Tartrate) 50 Mg Tab 50 MG PO BID #60 Ref 0 TAB Multiple Vitamin (Multi Vitamin) 1 Tab Tab 1 TAB PO DAILY TAB Nifedipine (Nifedipine) 20 Mg Cap 60 MG PO Q12HR Chest Pain #120 Ref 0 CAP Ropinirole (Requip) 3 Mg Tab 3 MG PO HS PRN RESTLESSNESS #30 Ref 0 TAB Umeclidinium-Vilanterol Inh (Anoro Ellipta Inh) 62.5-25 Mcg/Act Aero 1 PUFF INH DAILY COPD #1 Ref 0 INHALER Stacey Henson MD Jun 22, 2016 11:36
[2016-06-22 14:23] LABS: ANA SCREEN POS (NEG)
[2016-06-22 17:51] LABS: MYELOPEROXIDASE LESS THAN 1.0 AI (<1.0); PROTEINASE-3 LESS THAN 1.0 AI (<1.0)
== END 2016-06-22 13:10 | disposition home or self-care (01) | DRG 871 ==
LOC: NEPC 07:56 → NEDA 10:52 → OBSVTOIN 15:46 → HIMN 18:24
PROVIDERS: ADMIT Hospitalist; ATTEND Hospitalist
PROC: 5A09457 Assistance with Respiratory Ventilation, 24-96 Consecutive Hours, Continuous Positive Airway Pressure (ICD-10-PCS; principal; 2016-06-18)
DX: A41.9 Sepsis, unspecified organism (principal); J96.20 Acute and chronic respiratory failure, unspecified whether with hypoxia or hypercapnia; G93.41 Metabolic encephalopathy; N17.9 Acute kidney failure, unspecified; J18.9 Pneumonia, unspecified organism; E11.22 Type 2 diabetes mellitus with diabetic chronic kidney disease; N18.4 Chronic kidney disease, stage 4 (severe); Z99.81 Dependence on supplemental oxygen; J44.0 Chronic obstructive pulmonary disease with (acute) lower respiratory infection; J44.1 Chronic obstructive pulmonary disease with (acute) exacerbation; N39.0 Urinary tract infection, site not specified; E87.1 Hypo-osmolality and hyponatremia; I16.9 Hypertensive crisis, unspecified; M48.54XA Collapsed vertebra, not elsewhere classified, thoracic region, initial encounter for fracture; E86.0 Dehydration; B96.20 Unspecified Escherichia coli [E. coli] as the cause of diseases classified elsewhere; Z79.52 Long term (current) use of systemic steroids; E78.5 Hyperlipidemia, unspecified; F17.210 Nicotine dependence, cigarettes, uncomplicated; G25.81 Restless legs syndrome; G89.29 Other chronic pain; I12.9 Hypertensive chronic kidney disease with stage 1 through stage 4 chronic kidney disease, or unspecified chronic kidney disease; I25.2 Old myocardial infarction; M06.9 Rheumatoid arthritis, unspecified; Y95 Nosocomial condition; Z79.82 Long term (current) use of aspirin; Z96.642 Presence of left artificial hip joint; Z96.653 Presence of artificial knee joint, bilateral
CPT/HCPCS: 36600; 70450; 71010; 76775; 76937; 80048; 80053; 80307; 81001; 82140; 82550; 82570; 82607; 82805; 82948; 83036; 83735; 83880; 84156; 84165; 84300; 84443; 84484; 85025; 85610; 85730; 86021; 86038; 86039; 86160; 87077; 87086; 87186; 87641; 93005; 94002; 94003; 94640; 94664; 96361; 96365; 96375; G8987-GO; G8988-GO; G8996-GN; G8997-GN; G8998-GN; J0360; J0456; J0696; J1644; J1815; J1956; J2060; J2920; J7030; J7040; J7050; J7512; P9612

== ENCOUNTER 2016-06-29 14:58 | Inpatient (IN) | payer OTHER, MEDICARE ==
[2016-06-29] VITALS (22 sets, daily range): BP systolic 142–234; BP diastolic 62–111; PULSE 71–107; RESP 20–30; TEMP 98.4–99.1; O2SAT 91–97
[~2016-06-29] VITALS: Ht 167.6 cm; Wt 80.3 kg
[~2016-06-29 14:58] MED LIST changes: -ACCUKIT11; -ACCUKIT13; +ALBU.5I NEB; +ASPI1TAB69 PO; -ASPI81 PO; -BACT800T5 PO; +CEFT500T3 PO; -CLON.1 PO; +CLON0.1T PO; -DAILTAB PO; -DUONI INH; +GABA100C4 PO; +HYDR-3801 PO; -HYDRA25 PO; -ISOS60 PO; +ISOS60TA PO; +LISI-519 PO; -LISI5 PO; +MULT-135 PO; -NEUR100C PO; -NIFE1TAB86 PO; +NIFE20 PO; +NOVOLOGP2 SQ; -NOVOLOGSS SQ; -PRED10 PO; +PRED10PA PO; -VITA100020 PO; +VITA10004 PO; -Z.0.OXYGENDME NC; -[UNRECOGNIZED DRUG - CODE]
[2016-06-29] MEDS ORDERED: SODIUM CHLORIDE 0.9% FLUSH 5 ML FLUSH IVF PRN (15:00)
[2016-06-29] MEDS ORDERED: methylPREDNISolone SOD SUCC 125 MG/2 ML VIAL IVP ONE (15:00)
--- NOTE | 2016-06-29 15:06 | PD ---
HPI Chief Complaint: AMS Time Seen by Provider: 15:00 Travel History International Travel<30 days: No Contact w/Intl Traveler<30days: No History of Present Illness HPI Patient is 58-year-old female who presents emergency department for altered mental status. Patient was just released here after a COPD exacerbation/ delirium. Patient apparently began acting strangely last night and then a healthcare provider found her on the floor in the bathroom this morning. EMS was called and her initial sat was 80 on room air. She according to the medical records from last visit she is supposed to be on 2 L nasal cannula at all times at home. Patient is altered on arrival a GCS of 14 (E4,V4,M6) for confusion. PFSH Past Medical History Anemia: Yes Arthritis: Yes (RHEUMATOID ) Asthma: No Autoimmune Disease: No Anxiety: Yes (THIS VISIT) Depression: No Heart Rhythm Problems: No Cancer: No Cardiovascular Problems: Yes (Cardiac arrest August 2015) High Cholesterol: Yes Chest Pain: No Congestive Heart Failure: No COPD: Yes Cerebrovascular Accident: No Diabetes: Yes Diminished Hearing: No Endocrine: No Genitourinary: Yes (urinary retention) Hepatitis: No Hiatal Hernia: No Hypertension: Yes Immune Disorder: No Kidney Stones: Yes Musculoskeletal: No (Unable to obtain.) Neurologic: No Psychiatric: No Respiratory: Yes Immunizations Current: Yes Migraines: No Myocardial Infarction: Yes Seizures: No Sleep Apnea: No Thyroid Disease: No Past Surgical History Abdominal Surgery: Yes AICD: No Arteriovenous Shunt: No Body Medical Devices: LEFT HIP HARDWARE Cardiac Surgery: No Ear Surgery: No Endocrine Surgery: No Eye Surgery: No Genitourinary Surgery: No Gynecologic Surgery: No Hysterectomy: Yes Joint Replacement: Yes (KWADWO. 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 Reported Meds & Prescriptions Reported Meds & Active Scripts Active Prednisone (21) 10 mg tab Dose Pack (Prednisone) 10 Mg Pack 10 Mg PO DIRECTED Ceftin (Cefuroxime Axetil) 500 Mg Tab 500 Mg PO Q12HR Reported Tramadol (Tramadol HCl) 50 Mg Tab 50 Mg PO TID PRN Atorvastatin (Atorvastatin Calcium) 20 Mg Tab 20 Mg PO HS Nifedipine ER 24 HR (Nifedipine) 60 Mg Tab 60 Mg PO BID Isosorbide Mononitrate ER (Isosorbide Mononitrate) 30 Mg Malick 30 Mg PO DAILY Gabapentin 300 Mg Cap 300 Mg PO TID Anoro Ellipta Inh (Umeclidinium/Vilanterol) 62.5-25 Mcg/Act Aero 1 Puff INH DAILY Multi Vitamin (Multiple Vitamin) 1 Tab Tab 1 Tab PO DAILY Vitamin B-12 Cr (Cyanocobalamin) 1,000 Mcg Tab 1,000 Mcg PO DAILY Metoprolol Tartrate 50 Mg Tab 50 Mg PO BID Lisinopril 5 Mg Tab 5 Mg PO DAILY Levemir Inj (Insulin Detemir) 1,000 unit/ 10 ML Vial 10 Units SQ BID Do not mix with any other Insulin. Novolog Inj (Insulin Aspart) 1,000 Unit/10 Ml Vial 0 SQ DIRECTED Sliding Scale as directed. Hydralazine (Hydralazine HCl) 100 Mg Tab 100 Mg PO Q8HR Take with meals Clonidine (Clonidine HCl) 0.1 Mg Tab 0.1 Mg PO Q8HR Caltrate 600+D (Calcium Carbonate-Cholecalciferol) 600-800 Mg-Unit Tab 1 Tab PO DAILY Symbicort Inh (Budesonide/Formoterol Fumarate) 160-4.5 Mcg/Act Aero 2 Puff INH Q12HR Albuterol Neb (Albuterol Sulfate) 2.5 Mg/0.5 Ml Neb 2.5 Mg NEB Q4HR NEB PRN Note: The Albuterol Sulfate Inhalation Solution is concentrated and must be diluted. Read complete instructions carefully before using. Aspirin 81 Mg Tabdr 81 Mg PO DAILY Review of Systems ROS Limitations: Altered Mental Status Physical Exam Exam Limitations: Altered Mental Status Narrative GENERAL: WD/Obese, altered SKIN: Warm and dry. HEAD: Atraumatic. Normocephalic. EYES: Pupils equal and round. No scleral icterus. No injection or drainage. ENT: No nasal bleeding or discharge. Mucous membranes pink and moist. NECK: Trachea midline. No JVD. CARDIOVASCULAR: Regular rate and rhythm. RESPIRATORY: Expiratory wheezing, on bipap Difficult auscultation 2/2 habitus. GASTROINTESTINAL: Abdomen soft, non-tender, nondistended. Hepatic and splenic margins not palpable. MUSCULOSKELETAL: Extremities without clubbing, cyanosis, or edema. No obvious deformities. NEUROLOGICAL: Awake and alert. Follows commands in all four extremities, GCS 13 (E3,V4,M6). Data Data Last Documented VS Vital Signs Date Time Temp Pulse Resp B/P Pulse Ox O2 Delivery O2 Flow Rate FiO2 06/29/16 17:30 80 23 147/62 96 BiPAP 06/29/16 15:23 99.1 06/29/16 14:58 40 Orders Electrocardiogram (06/29/16 15:00) Arterial Blood Gas (Abg) (06/29/16 15:00) Complete Blood Count With Diff (06/29/16 15:00) Comprehensive Metabolic Panel (06/29/16 15:00) Chest, Single Ap (06/29/16 15:00) Ecg Monitoring (06/29/16 15:00) Iv Access Insert/Monitor (06/29/16 15:00) Oximetry (06/29/16 15:00) Oxygen Administration (06/29/16 15:00) Methylprednisolone So Succ Inj (Solumedr (06/29/16 15:00) Albuterol-Ipratropium Neb (Duoneb Neb) (06/29/16 15:00) Sodium Chloride 0.9% Flush (Ns Flush) (06/29/16 15:00) Blood Culture (06/29/16 15:00) Ammonia (06/29/16 15:00) Lactic Acid (06/29/16 15:00) Nicardipine Inj (Cardene Inj) (06/29/16 15:45) Furosemide Inj (Lasix Inj) (06/29/16 16:00) Urinary Catheter Management JACKSON.Q8H (06/29/16 15:52) Ct Brain W/O Iv Contrast(Rout) (06/29/16 ) Urinalysis - C+S If Indicated (06/29/16 16:46) Drug Screen, Random Urine (06/29/16 16:46) Admit Order (Ed Use Only) (06/29/16 ) Labs Laboratory Tests Test 06/29/16 06/29/16 06/29/16 15:12 15:34 16:45 White Blood Count 9.7 TH/MM3 Red Blood Count 3.88 MIL/MM3 Hemoglobin 11.5 GM/DL Hematocrit 34.0 % Mean Corpuscular Volume 87.7 FL Mean Corpuscular Hemoglobin 29.5 PG Mean Corpuscular Hemoglobin 33.7 % Concent Red Cell Distribution Width 14.5 % Platelet Count 308 TH/MM3 Mean Platelet Volume 6.8 FL Neutrophils (%) (Auto) 86.0 % Lymphocytes (%) (Auto) 7.7 % Monocytes (%) (Auto) 4.9 % Eosinophils (%) (Auto) 0.9 % Basophils (%) (Auto) 0.5 % Neutrophils # (Auto) 8.3 TH/MM3 Lymphocytes # (Auto) 0.7 TH/MM3 Monocytes # (Auto) 0.5 TH/MM3 Eosinophils # (Auto) 0.1 TH/MM3 Basophils # (Auto) 0.0 TH/MM3 CBC Comment DIFF FINAL Differential Comment Sodium Level 138 MEQ/L Potassium Level 5.0 MEQ/L Chloride Level 101 MEQ/L Carbon Dioxide Level 28.7 MEQ/L Anion Gap 8 MEQ/L Blood Urea Nitrogen 35 MG/DL Creatinine 1.72 MG/DL Estimat Glomerular Filtration 30 ML/MIN Rate Random Glucose 85 MG/DL Lactic Acid Level 1.0 mmol/L Calcium Level 8.9 MG/DL Total Bilirubin 0.4 MG/DL Aspartate Amino Transf 8 U/L (AST/SGOT) Alanine Aminotransferase 15 U/L (ALT/SGPT) Alkaline Phosphatase 103 U/L Ammonia 24 MCMOL/L Total Protein 7.5 GM/DL Albumin 3.0 GM/DL Blood Gas Puncture Site RT RADIAL Blood Gas Patient Temperature 98.6 Blood Gas HCO3 27 mmol/L Blood Gas Base Excess 3.0 mmol/L Blood Gas Oxygen Saturation 94 % Arterial Blood pH 7.41 Arterial Blood Partial 44 mmHg Pressure CO2 Arterial Blood Partial 88 mmHG Pressure O2 Arterial Blood Oxygen Content 16.3 Vol % Arterial Blood 2.8 % Carboxyhemoglobin Arterial Blood Methemoglobin 0.7 % Blood Gas Hemoglobin 12.3 G/DL Oxygen Delivery Device BiPAP Blood Gas Ventilator Setting IPAP 15/EPAP 5/ PS10 Blood Gas Inspired Oxygen 40 % Urine Color LIGHT-YELLOW Urine Turbidity CLEAR Urine pH 5.5 Urine Specific [place] 1.011 Urine Protein 100 mg/dL Urine Glucose (UA) NEG mg/dL Urine Ketones NEG mg/dL Urine Occult Blood NEG Urine Nitrite NEG Urine Bilirubin NEG Urine Urobilinogen LESS THAN 2.0 MG/DL Urine Leukocyte Esterase NEG Urine WBC 1 /hpf Urine Squamous Epithelial <1 /hpf Cells Microscopic Urinalysis Comment CULT NOT INDICATED MDM Medical Decision Making Medical Screen Exam Complete: Yes Emergency Medical Condition: Yes Interpretation(s) EKG shows normal sinus rhythm with normal axis and normal R-wave progression. Further interpretation limited secondary to motion artifact. No obvious ST segment changes. Intervals are within normal limits. Differential Diagnosis Hypertensive emergency, hypertensive encephalopathy, acute kidney injury, pulmonary edema, COPD, substance use, CO2 narcosis. Narrative Course Patient roomed in ED, changed from CPAP to BiPap on arrival. ABG is reassuring. Last 24 hours Impressions Chest X-Ray 06/29/16 1500 Signed Impressions: Service Date/Time: Wednesday, June 29, 2016 15:18 - CONCLUSION: Diffuse increased interstitial markings likely representing edema. There some superimposed mild atelectasis or consolidation at the bases. Nirav Camacho MD Head CT 06/29/16 0000 Signed Impressions: Service Date/Time: Wednesday, June 29, 2016 16:47 - CONCLUSION: No acute disease. Nirav Camacho MD Patient given lasix, given hypertensive encephalopathy is leading differential started on cardene drip. BP after starting drip down to 160's systolic. Mental status not much changed, is protecting her airway. Patient tolerating BiPap will wean as tolerated. Patient discussed with Dr. Reilly for admission ho is agreeable. Critical Care Narrative Critical Care: The total critical care time was 35 minutes. Time to perform other separately billable procedures was not included in the critical care time. Time spent analyzing data, reviewing records, placing on drips and discussing with consultants. Diagnosis Primary Impression: Acute respiratory failure with hypoxia Additional Impressions: Pulmonary edema Qualified Code: J81.0 - Acute pulmonary edema Hypertensive emergency Encephalopathy Admitting Information Admitting Physician Requests: Admit Condition: Serious Mustapha Rudd MD Jun 29, 2016 15:06
[2016-06-29] MEDS: RESP: ALBUTEROL 2.5 MG/IPRATROPIUM 0.5 MG NEB (SCH) INH ×3 (15:22→23:27)
[2016-06-29 15:33] LABS: AUTOMATED NEUTROPHIL # 8.3 TH/MM3 (1.8-7.7); BASOPHIL % 0.5 % (0.0-2.0); EOSINOPHIL # 0.1 TH/MM3 (0-0.4); EOSINOPHIL % 0.9 % (0.0-4.0); HEMO FLAGS DIFF FINAL; LYMPH % 7.7 % (9.0-44.0); LYMPHOCYTE # 0.7 TH/MM3 (1.0-4.8); MEAN CELL VOLUME 87.7 FL (80.0-100.0); MEAN CORPUSCULAR HEMOGLOBIN 29.5 PG (27.0-34.0); MEAN CORPUSCULAR HGB CONC 33.7 % (32.0-36.0); MONO % 4.9 % (0.0-8.0); PLATELET COUNT 308 TH/MM3 (150-450); RED BLOOD COUNT 3.88 MIL/MM3 (4.00-5.30); RED CELL DISTRIBUTION WIDTH 14.5 % (11.6-17.2); WHITE BLOOD COUNT 9.7 TH/MM3 (4.0-11.0)
[2016-06-29 15:38] LABS: BLOOD GAS CARBOXYHEMOGLOBIN 2.8 % (0-4); BLOOD GAS HCO3 27 mmol/L (22-26); BLOOD GAS METHEMOGLOBIN 0.7 % (0-2); BLOOD GAS O2 HGB SATURATION 94 % (90-100); BLOOD GAS OXYGEN CONTENT 16.3 Vol % (12.0-20.0); BLOOD GAS PCO2 44 mmHg (38-42); BLOOD GAS PO2 88 mmHG (61-120); BLOOD GAS TOTAL HGB 12.3 G/DL (12.0-16.0); TEMP CORR TO 98.6
[2016-06-29 15:39] LABS: CRITICAL VALUE NO; DRAW SITE RT RADIAL; FIO2 40 %; NUMBER OF ARTERIAL PUNCTURES 1; OXYGEN DEVICE BiPAP; STAT YES; ULNAR PULSE PRESENT; VENT SETTINGS IPAP 15/EPAP 5/ PS10
--- NOTE | 2016-06-29 15:40 | RADRPT ---
EXAM DATE/TIME: 06/29/2016 15:18 [facility] COMPARISON: CHEST SINGLE AP, June 18, 2016, 9:48. INDICATIONS : Short of breath. MEDICAL HISTORY : Chronic obstructive pulmonary disease. SURGICAL HISTORY : None. ENCOUNTER: Initial ACUITY: 1 day PAIN SCORE: Non-responsive. LOCATION: Bilateral chest FINDINGS: The heart size is enlarged. The lungs demonstrate diffuse increased interstitial markings. There is s ome further mild atelectasis or consolidation at the bases. Significant effusions are not seen. CONCLUSION: Diffuse increased interstitial markings likely representing edema. There some superimposed mild atele ctasis or consolidation at the bases. Nirav Camacho MD on June 29, 2016 at 15:35 Board Certified Radiologist. This report was verified electronically.
[2016-06-29] MEDS ORDERED: niCARdipine INJ 25 MG in SODIUM CHLOR 0.9% 250 ML INJ 250 ML IV SCH (15:45)
[2016-06-29 15:54] LABS: ALT (GPT) 15 U/L (10-53); ANION GAP 8 MEQ/L (5-15); AST (GOT) 8 U/L (15-37); BICARBONATE 28.7 MEQ/L (21.0-32.0); CHLORIDE 101 MEQ/L (98-107); GLOMERULAR FILTRATION RATE 30 ML/MIN (>89); SODIUM (NA) 138 MEQ/L (136-145)
[2016-06-29] MEDS ORDERED: FUROSEMIDE 100 MG/10 ML VIAL IV PUSH ONE (16:00)
[2016-06-29 16:02] LABS: ALKALINE PHOSPHATASE 103 U/L (45-117); BLOOD UREA NITROGEN 35 MG/DL (7-18); TOTAL BILIRUBIN ADULT 0.4 MG/DL (0.2-1.0)
--- NOTE | 2016-06-29 16:56 | RADRPT ---
EXAM DATE/TIME: 06/29/2016 16:47 [facility] COMPARISON: CT BRAIN W/O CONTRAST, June 18, 2016, 10:09. INDICATIONS : Altered mental status; found on floor. RADIATION DOSE: 37.07 CTDIvol (mGy) MEDICAL HISTORY : Cardiovascular disease. Hypertension. Chronic obstructive pulmonary disease. SURGICAL HISTORY : None. ENCOUNTER: Initial ACUITY: 1 day PAIN SCALE: Non-responsive LOCATION: cranial TECHNIQUE: Multiple contiguous axial images were obtained of the head. Using automated exposure control and adj ustment of the mA and/or kV according to patient size, radiation dose was kept as low as reasonably a chievable to obtain optimal diagnostic quality images. FINDINGS: There is motion blurring throughout. CEREBRUM: The ventricles are normal for age. No evidence of midline shift, mass lesion, hemorrhage or acute in farction. No extra-axial fluid collections are seen. POSTERIOR FOSSA: The cerebellum and brainstem are intact. The 4th ventricle is midline. The cerebellopontine angle i s unremarkable. EXTRACRANIAL: The visualized portion of the orbits is intact. SKULL: The calvaria is intact. No evidence of skull fracture. CONCLUSION: No acute disease. Nirav Camacho MD on June 29, 2016 at 16:54 Board Certified Radiologist. This report was verified electronically.
[2016-06-29 17:11] LABS: BLOOD, URINE NEG (NEG); COMMENT (UR) CULT NOT INDICATED; CULTURE IF INDICATED CULT NOT INDICATED; GLUCOSE,URINE NEG (NEG); KETONE, URINE NEG (NEG); NITRITE,URINE NEG (NEG); PH, URINE 5.5 (5.0-8.5); SQUAMOUS EPITHELIAL CELL URINE <1 /hpf (0-5); URINE COLOR LIGHT-YELLOW (YELLW/STRAW)
--- NOTE | 2016-06-29 17:58 | EKG ---
Date Performed: 06/29/2016 Time Performed: 14:07:20 PTAGE: 60 years EKG: BASELINE ARTIFACT PRESENT. Sinus rhythm POSSIBLE LEFT ATRIAL ENLARGEMENT BORDERLINE ECG No definite change although both EKGs have marked ar tifact. PREVIOUS TRACING : 06/18/2016 08.08 DOCTOR: Devaughn Wray Interpretating Date/Time 06/29/2016 17:57:05
[2016-06-29] MEDS ORDERED: DEXTROSE 50% IN WATER 50 ML VIAL(D50) IV PUSH PRN (18:00)
[2016-06-29] MEDS ORDERED: BISACODYL EC 5 MG TABEC PO PRN (18:00)
[2016-06-29] MEDS ORDERED: MISCELLANEOUS NURSING INFORMATION XX SCH (18:00)
[2016-06-29] MEDS ORDERED: ONDANSETRON HCL 4 MG/2 ML VIAL IV PRN (18:00)
[2016-06-29] MEDS ORDERED: CHLORHEXIDINE GLUCONATE 2 % 1 PACK (2 CLOTHS) TOP PRN (18:00)
[2016-06-29] MEDS ORDERED: ACETAMINOPHEN 325 MG TAB PO PRN (18:00)
[2016-06-29] MEDS ORDERED: SODIUM CHLORIDE 0.9% FLUSH 5 ML FLUSH IV FLUSH PRN (18:00)
[2016-06-29] MEDS ORDERED: GLUCAGON 1 MG/ML VIAL OTHER PRN (18:00)
[2016-06-29] MEDS ORDERED: RESP: ALBUTEROL 2.5 MG/3 ML NEB (PRN) INH (18:00)
[2016-06-29] MEDS: INSULIN NovoLIN REGULAR SUPPLEMENTAL SCALE SQ SCH (18:00)
[2016-06-29] MEDS ORDERED: SENNOSIDES 8.6 MG TAB PO PRN (18:00)
[2016-06-29] MEDS ORDERED: NIFE60TA58 PO (18:05)
[2016-06-29] MEDS ORDERED: ISOS30TA3 PO (18:05)
[2016-06-29] MEDS ORDERED: GABA300C5 PO (18:05)
[2016-06-29] MEDS ORDERED: TRAM50TA PO (18:05)
[2016-06-29] MEDS ORDERED: ATOR20TA15 PO (18:05)
[2016-06-29] MEDS ORDERED: hydrALAZINE HCL 20 MG/ML VIAL IV PUSH PRN (18:15)
[2016-06-29] MEDS ORDERED: NITROGLYCERIN 2% OINT 1 GM PACKET TOPICAL PRN (18:15)
[2016-06-29] MEDS ORDERED: LABETALOL HCL 100 MG/20 ML VIAL IV PUSH PRN (18:15)
--- NOTE | 2016-06-29 18:21 | HHI.HP ---
[facility] Service Critical Care Medicine Primary Care Physician Jn Castaneda M.D. Admission Diagnosis Hypertensive Emergency, Pulmonary Edema, Encephalopathy Diagnosis: (1) COPD with acute exacerbation Diagnosis: Principal (2) Acute respiratory failure Diagnosis: Principal (3) Hypertensive crisis Diagnosis: Principal (4) COPD (chronic obstructive pulmonary disease) Diagnosis: Principal (5) Compression fracture of thoracic vertebra Diagnosis: Principal (6) Chronic kidney disease (CKD) Diagnosis: Principal (7) Encephalopathy Diagnosis: Principal (8) Diabetes Diagnosis: Principal Chief Complaint: Altered mental status/history of COPD off her oxygen with acute delirium Travel History International Travel<30 Days: No Contact w/Intl Traveler <30 Da: No Traveled to Known Affected Are: No History of Present Illness 60-year-old female. Date of admission 06/29/2016. Past medical history includes severe COPD/on home O2, recent Escherichia coli UTI, chronic kidney disease history, obstructive sleep apnea not on CPAP, chronic neuropathy secondary diabetes, diabetes, hypertension, dyslipidemia and osteoporosis/ osteoarthritis. She was recently admitted with UTI and sent home on Ceftin. She seen at that time by nephrology for chronic kidney disease and Dr. zelaya from pulmonology for underlying COPD. She is found at her nursing today with altered mental status GCS of 14 with acute diffusion. Saturation 80% room air. She is 2 L nasal cannula chronically. She is placed on BiPAP and transferred to [facility]. At this facility she is noted to be quite hypertensive with systolic pressure in the 230s. Chest x-ray revealed possible pulmonary edema. She is given 80 mg Lasix IV 1. She started on a Cardene drip. Her current blood pressure currently 140. I held this medication. CT head revealed no acute intracranial findings. Chest x-ray revealed signs COPD possible pulmonary edema and bilateral lower x-rays for cellulitis.. She is currently more awake and alert on BiPAP 15/5 and 40%. Were asked to admit Review of Systems ROS Limitations: Altered Mental Status Past Family Social History Allergies: Coded Allergies: Codeine (Verified Adverse Reaction, Severe, 06/18/16) *MDRO Multi-Drug Resistant Organism (Verified Adverse Reaction, Unknown, ) MDR E. 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 Past Medical History History of hospital-acquired pneumonia Severe COPD on 2 L nasal cannula at home of on 2 L nasal cannula Obstructive sleep apnea not on CPAP Chronic kidney disease stage III Diabetes mellitus with neuropathy Lumbar stenosis Hypertension dyslipidemia diabetes mellitus Past Surgical History Vaginal hysterectomy/bilateral salpingo-nephrectomy ORIF left hip T&A Lumbar fusion Reported Medications Reported Meds & Active Scripts Active Prednisone (21) 10 mg tab Dose Pack (Prednisone) 10 Mg Pack 10 Mg PO DIRECTED Ceftin (Cefuroxime Axetil) 500 Mg Tab 500 Mg PO Q12HR Reported Anoro Ellipta Inh (Umeclidinium/Vilanterol) 62.5-25 Mcg/Act Aero 1 Puff INH DAILY Requip (Ropinirole) 3 Mg Tab 3 Mg PO HS PRN Nifedipine 20 Mg Cap 60 Mg PO Q12HR Multi Vitamin (Multiple Vitamin) 1 Tab Tab 1 Tab PO DAILY Vitamin B-12 Cr (Cyanocobalamin) 1,000 Mcg Tab 1,000 Mcg PO DAILY Metoprolol Tartrate 50 Mg Tab 50 Mg PO BID Lisinopril 5 Mg Tab 5 Mg PO DAILY Isosorbide Mononitrate ER (Isosorbide Mononitrate) 60 Mg Tab 60 Mg PO DAILY Levemir Inj (Insulin Detemir) 1,000 unit/ 10 ML Vial 10 Units SQ BID Do not mix with any other Insulin. Novolog Inj (Insulin Aspart) 1,000 Unit/10 Ml Vial 0 SQ DIRECTED Sliding Scale as directed. Hydralazine (Hydralazine HCl) 100 Mg Tab 100 Mg PO Q8HR Take with meals Gabapentin 100 Mg Cap 200 Mg PO BID Clonidine (Clonidine HCl) 0.1 Mg Tab 0.1 Mg PO Q8HR Caltrate 600+D (Calcium Carbonate-Cholecalciferol) 600-800 Mg-Unit Tab 1 Tab PO DAILY Symbicort Inh (Budesonide/Formoterol Fumarate) 160-4.5 Mcg/Act Aero 2 Puff INH Q12HR Albuterol Neb (Albuterol Sulfate) 2.5 Mg/0.5 Ml Neb 2.5 Mg NEB Q4HR NEB PRN Note: The Albuterol Sulfate Inhalation Solution is concentrated and must be diluted. Read complete instructions carefully before using. Aspirin 81 Mg Tabdr 81 Mg PO DAILY Active Ordered Medications Reviewed in EMR Family History Mother and father noncontributory Social History Previously smoked tobacco. No alcohol or IV drug use Physical Exam Vital Signs Vital Signs Date Time Temp Pulse Resp B/P Pulse Ox O2 Delivery O2 Flow Rate FiO2 3/17/17 17:15 85 25 189/89 96 BiPAP 06/29/16 17:00 87 25 214/94 94 BiPAP 06/29/16 16:45 86 25 207/93 97 BiPAP 06/29/16 16:30 71 25 218/93 97 BiPAP 06/29/16 15:23 93 28 97 BiPAP 06/29/16 15:23 99.1 86 28 234/111 97 BiPAP 06/29/16 15:18 99.1 93 28 234/111 97 06/29/16 15:15 97 BiPAP 06/29/16 15:15 96 BiPAP 06/29/16 14:58 95 40 Physical Exam GENERAL: 60-year-old female, critically ill currently on BiPAP SKIN: Warm and dry. No rash HEAD: Atraumatic. Normocephalic. EYES: Pupils equal and round about 3 mm bilaterally and reactive. No scleral icterus. No injection or drainage. ENT: No nasal bleeding or discharge. Mucous membranes pink and moist. NECK: Trachea midline. No JVD. CARDIOVASCULAR: Regular rate and rhythm. S1, S2 no S4. RESPIRATORY: Ms. breath sounds throughout. Symmetrical excursion. Breath sounds equal bilaterally. GASTROINTESTINAL: Abdomen soft, non-tender, nondistended. Active bowel sounds are appreciated MUSCULOSKELETAL: Extremities without difficulty and peripheral edema. No obvious deformities. NEUROLOGICAL: Awake and alert. No obvious cranial nerve deficits. Motor grossly within normal limits. Five out of 5 muscle strength in the arms and legs. Slow but essentially normal speech. Laboratory Laboratory Tests Test 06/29/16 06/29/16 06/29/16 15:12 15:34 16:45 White Blood Count 9.7 Red Blood Count 3.88 Hemoglobin 11.5 Hematocrit 34.0 Mean Corpuscular Volume 87.7 Mean Corpuscular Hemoglobin 29.5 Mean Corpuscular Hemoglobin 33.7 Concent Red Cell Distribution Width 14.5 Platelet Count 308 Mean Platelet Volume 6.8 Neutrophils (%) (Auto) 86.0 Lymphocytes (%) (Auto) 7.7 Monocytes (%) (Auto) 4.9 Eosinophils (%) (Auto) 0.9 Basophils (%) (Auto) 0.5 Neutrophils # (Auto) 8.3 Lymphocytes # (Auto) 0.7 Monocytes # (Auto) 0.5 Eosinophils # (Auto) 0.1 Basophils # (Auto) 0.0 CBC Comment DIFF FINAL Differential Comment Sodium Level 138 Potassium Level 5.0 Chloride Level 101 Carbon Dioxide Level 28.7 Anion Gap 8 Blood Urea Nitrogen 35 Creatinine 1.72 Estimat Glomerular Filtration 30 Rate Random Glucose 85 Lactic Acid Level 1.0 Calcium Level 8.9 Total Bilirubin 0.4 Aspartate Amino Transf 8 (AST/SGOT) Alanine Aminotransferase 15 (ALT/SGPT) Alkaline Phosphatase 103 Ammonia 24 Total Protein 7.5 Albumin 3.0 Blood Gas Puncture Site RT RADIAL Blood Gas Patient Temperature 98.6 Blood Gas HCO3 27 Blood Gas Base Excess 3.0 Blood Gas Oxygen Saturation 94 Arterial Blood pH 7.41 Arterial Blood Partial 44 Pressure CO2 Arterial Blood Partial 88 Pressure O2 Arterial Blood Oxygen Content 16.3 Arterial Blood 2.8 Carboxyhemoglobin Arterial Blood Methemoglobin 0.7 Blood Gas Hemoglobin 12.3 Oxygen Delivery Device BiPAP Blood Gas Ventilator Setting IPAP 15/EPAP 5/ PS10 Blood Gas Inspired Oxygen 40 Urine Color LIGHT-YELLOW Urine Turbidity CLEAR Urine pH 5.5 Urine Specific [place] 1.011 Urine Protein 100 Urine Glucose (UA) NEG Urine Ketones NEG Urine Occult Blood NEG Urine Nitrite NEG Urine Bilirubin NEG Urine Urobilinogen LESS THAN 2.0 Urine Leukocyte Esterase NEG Urine WBC 1 Urine Squamous Epithelial <1 Cells Microscopic Urinalysis Comment CULT NOT INDICATED Date/Time Procedure Status Source Growth 06/29/16 15:13 Aerobic Blood Culture Received Blood Peripheral Pending 06/29/16 15:13 Anaerobic Blood Culture Received Blood Peripheral Pending Result Diagram: 06/29/16 1512 06/29/16 1512 Imaging Last Impressions Chest X-Ray 06/29/16 1500 Signed Impressions: Service Date/Time: Wednesday, June 29, 2016 15:18 - CONCLUSION: Diffuse increased interstitial markings likely representing edema. There some superimposed mild atelectasis or consolidation at the bases. Nirav Camacho MD Head CT 06/29/16 0000 Signed Impressions: Service Date/Time: Wednesday, June 29, 2016 16:47 - CONCLUSION: No acute disease. Nirav Camacho MD Assessment and Plan Assessment and Plan Neuro/Psych: Encephalopathy - likely hypertensive plus minus CO2 retention Restless like syndrome\\ Diabetic neuropathy CT head revealed no acute intracranial findings On Requip "3 mg by mouth at night. Decreased to 0.25 mg at night light of altered mental status. Acetaminophen for fever CT head 06/29 revealed no acute intracranial findings Holding gabapentin 200 mg twice a day in light of altered mental status CV: Hypertensive emergency History dyslipidemia Initial systolic blood pressure 2[30s. Start on Cardizem currently at 5 mill grams now. This be held. Culture for systolic blood pressure around 25%. Around 180 recommended Home medications include lisinopril 5 mill grams daily, metoprolol 50 mill grams twice a day, clonidine 0.1 mg 3 times a day, nifedipine 60 mill grams every 12 hours, Imdur 30 mg daily and hydralazine 100 mg daily. Slowly resume home medications as above. See orders EKG showed normal sinus rhythm. No acute ST-T changes. Troponin cycled. Echocardiogram 2016 EF 55-60%. No regional wall motion abnormality. LEXIE- 61 mmHg. Mild MR. Resp: Acute hypoxemic respiratory failure Severe COPD/O2 dependent HERACLIO/no CPAP at home Continue BiPAP 15/5 at 40%. Wean as tolerated Bronchodilator therapy every 6 hours and as needed *Pulmicort twice a day while altered At home Anoro Ellipta 62.5/25 one inhalation daily and Symbicort 160/4.5 2 puffs every 12 hours with as needed albuterol Chest x-ray revealed possible pulmonary edema with bilateral lower lobe infiltrate/atelectasis Follow-up chest x-ray in a.m. Received 80 mg IV Lasix in ED GI: Patient is currently nothing by mouth Protonix for GI prophylaxis Colace/as needed Senokot for bowel regimen : Bonilla will be placed for accurate I's and O's in a critically ill patient Endo: Diabetes mellitus with neuropathy At home on Levemir 10 units twice a day with sliding scale insulin. We'll start on lightening scale insulin with Accu-Cheks every hours to maintain euglycemia/low regimen Renal: Chronic kidney disease stage III Creatinine currently close to within normal limits. Avoid nephrotoxic drugs Noted LIZANDRO 1-80 last admission/speckled. Will need follow-up Heme: Normocytic anemia Monitor CBC daily ID: Cefepime/Zithromax day #1. Zithromax for possible pulmonary coverage/atypical UA negative/, sputum, influenza and blood cultures 2 all ordered FEN: Replace electrolytes as clinically indicated per ICU likely protocol MSK: Access - Utilize peripheral IV. Central line if indicated Prophylaxis - GI - Protonix - DVT - SCD/heparin subcutaneous Critical Care: The total critical care time was 65 minutes. Time to perform other separately billable procedures was not included in the critical care time. Code Status Full code Discussed Condition With Patient. ED physician. Care plan discussed and all questions answered. Problem Qualifiers (1) Acute respiratory failure: Qualified Code: J96.01 - Acute respiratory failure with hypoxia (2) COPD (chronic obstructive pulmonary disease): Qualified Code: J44.9 - Chronic obstructive pulmonary disease, unspecified COPD type (3) Compression fracture of thoracic vertebra: Qualified Code: S22.000D - Compression fracture of thoracic vertebra, with routine healing, subsequent encounter (4) Diabetes: Qualified Code: E11.9 - Type 2 diabetes mellitus without complication, with long-term current use of insulin Joseph Reilly MD Jun 29, 2016 18:21
[2016-06-29] MEDS: SODIUM CHLOR 0.9% 1000 ML INJ 1,000 ML IV SCH (20:14)
[2016-06-29] MEDS: HEPARIN SODIUM - SQ 10,000 UNITS/ML VIAL SQ SCH (20:15)
[2016-06-29] MEDS: AZITHROMYCIN INJ 500 MG in SODIUM CHLOR 0.9% 250 ML INJ 250 ML IV SCH (20:15)
[2016-06-29] MEDS: BUDESONIDE-FORMOTEROL 160/4.5 MCG INHALER INH SCH (21:00)
[2016-06-29] MEDS: hydrALAZINE HCL 100 MG TAB PO SCH (21:45)
[2016-06-29] MEDS: cloNIDine HCL 0.1 MG TAB PO SCH (21:45)
[2016-06-29] MEDS: METOPROLOL TARTRATE 50 MG TAB PO SCH (21:45)
[2016-06-29] MEDS: NIFEdipine 60 MG SUSTAINED RELEASE TAB PO SCH (21:45)
[2016-06-29] MEDS: DOCUSATE SODIUM 100 MG CAP PO SCH (21:45)
[2016-06-29] MEDS: ATORVASTATIN 20 MG TAB PO SCH (21:45)
[2016-06-29] MEDS: SODIUM CHLORIDE 0.9% FLUSH 5 ML FLUSH IV FLUSH SCH (21:46)
[2016-06-29] MEDS: methylPREDNISolone SOD SUCC 40 MG/1 ML VIAL IV PUSH SCH (21:47)
[2016-06-30] VITALS (20 sets, daily range): BP systolic 126–173; BP diastolic 62–77; PULSE 64–80; RESP 20–24; TEMP 97.7–99.1; O2SAT 91–95
[2016-06-30 00:36] LABS: AMPHETAMINE, URINE NEG (NEG); BARBITURATES, URINE NEG (NEG); COCAINE, URINE NEG (NEG)
[2016-06-30] MEDS: RESP: ALBUTEROL 2.5 MG/IPRATROPIUM 0.5 MG NEB (SCH) INH ×6 (02:49→23:40)
[2016-06-30 03:52] LABS: AUTOMATED NEUTROPHIL # 5.1 TH/MM3 (1.8-7.7); BASOPHIL % 0.1 % (0.0-2.0); HEMATOCRIT 34.3 % (35.0-46.0); HEMO FLAGS DIFF FINAL; LYMPH % 5.8 % (9.0-44.0); LYMPHOCYTE # 0.3 TH/MM3 (1.0-4.8); MEAN CORPUSCULAR HEMOGLOBIN 29.4 PG (27.0-34.0); MEAN CORPUSCULAR HGB CONC 33.4 % (32.0-36.0); MONO % 0.5 % (0.0-8.0); NEUT % 93.6 % (16.0-70.0); PLATELET COUNT 260 TH/MM3 (150-450); RED CELL DISTRIBUTION WIDTH 14.9 % (11.6-17.2); WHITE BLOOD COUNT 5.5 TH/MM3 (4.0-11.0)
[2016-06-30 03:58] LABS: APTT (PATIENT) 27.1 SEC (24.3-30.1); PROTHROMBIN TIME - PATIENT 10.8 SEC (9.8-11.6)
[2016-06-30] MEDS: CHLORHEXIDINE GLUCONATE 2 % 1 PACK (2 CLOTHS) TOP SCH (04:00)
[2016-06-30 04:18] LABS: ALT (GPT) 14 U/L (10-53); ANION GAP 10 MEQ/L (5-15); AST (GOT) 5 U/L (15-37); BLOOD UREA NITROGEN 38 MG/DL (7-18); CHLORIDE 100 MEQ/L (98-107); GLOMERULAR FILTRATION RATE 29 ML/MIN (>89); MAGNESIUM 2.2 MG/DL (1.5-2.5); POTASSIUM 4.8 MEQ/L (3.5-5.1); SODIUM (NA) 138 MEQ/L (136-145)
[2016-06-30 04:20] LABS: ALKALINE PHOSPHATASE 96 U/L (45-117); TOTAL BILIRUBIN ADULT 0.3 MG/DL (0.2-1.0)
[2016-06-30 04:31] LABS: CREATINE KINASE 17 U/L (26-192)
--- NOTE | 2016-06-30 04:53 | RADRPT ---
EXAM DATE/TIME: 06/30/2016 02:37 [facility] COMPARISON: CHEST SINGLE AP, June 29, 2016, 15:18. INDICATIONS : Shortness of breath, possible pulmonary disease. MEDICAL HISTORY : Chronic obstructive pulmonary disease. SURGICAL HISTORY : None. ENCOUNTER: Subsequent ACUITY: 2 days PAIN SCORE: Non-responsive. LOCATION: Bilateral chest FINDINGS: A single view of the chest demonstrates mild basilar airspace disease. Cardiomegaly. No significant e ffusion. No pneumothorax. CONCLUSION: 1. Cardiomegaly with mild basilar airspace disease and small effusions. Findings similar to June 29. Freddie Tubbs MD on June 30, 2016 at 4:50 Board Certified Radiologist. This report was verified electronically.
[2016-06-30] MEDS: methylPREDNISolone SOD SUCC 40 MG/1 ML VIAL IV PUSH SCH ×3 (05:58→22:17)
[2016-06-30] MEDS: INSULIN NovoLIN REGULAR SUPPLEMENTAL SCALE SQ SCH ×3 (05:58→17:45)
[2016-06-30] MEDS: SODIUM CHLOR 0.9% 1000 ML INJ 1,000 ML IV SCH ×2 (05:58→09:32)
[2016-06-30] MEDS: cloNIDine HCL 0.1 MG TAB PO SCH ×3 (05:58→22:17)
[2016-06-30] MEDS: hydrALAZINE HCL 100 MG TAB PO SCH ×3 (05:58→22:15)
[2016-06-30] MEDS: ISOSORBIDE MONONITRATE 30 MG TAB PO SCH (05:58)
[2016-06-30] MEDS: PANTOPRAZOLE SODIUM 40 MG VIAL IV SCH (09:47)
[2016-06-30] MEDS: HEPARIN SODIUM - SQ 10,000 UNITS/ML VIAL SQ SCH ×2 (09:48→22:18)
[2016-06-30] MEDS: DOCUSATE SODIUM 100 MG CAP PO SCH ×2 (09:48→21:00)
[2016-06-30] MEDS: CYANOCOBALAMIN 1,000 MCG TAB PO SCH (09:48)
[2016-06-30] MEDS: NIFEdipine 60 MG SUSTAINED RELEASE TAB PO SCH ×2 (09:48→22:17)
[2016-06-30] MEDS: CALCIUM/VITAMIN D 250 MG/125 U TAB PO SCH (09:48)
[2016-06-30] MEDS: MULTIVITAMIN TAB PO SCH (09:48)
[2016-06-30] MEDS: METOPROLOL TARTRATE 50 MG TAB PO SCH ×2 (09:48→22:17)
[2016-06-30] MEDS: ASPIRIN EC 81 MG TABEC PO SCH (09:48)
[2016-06-30] MEDS: SODIUM CHLORIDE 0.9% FLUSH 5 ML FLUSH IV FLUSH SCH ×2 (09:48→21:00)
[2016-06-30] MEDS: BUDESONIDE-FORMOTEROL 160/4.5 MCG INHALER INH SCH ×2 (09:49→21:00)
--- NOTE | 2016-06-30 13:49 | HHI.CCPN ---
Subjective Remarks/Hospital Course 60-year-old female. Date of admission 06/29/2016. Past medical history includes severe COPD/on home O2, recent Escherichia coli UTI, chronic kidney disease history, obstructive sleep apnea not on CPAP, chronic neuropathy secondary diabetes, diabetes, hypertension, dyslipidemia and osteoporosis/ osteoarthritis. She was recently admitted with UTI and sent home on Ceftin. She seen at that time by nephrology for chronic kidney disease and Dr. zelaya from pulmonology for underlying COPD. She is found at her nursing today with altered mental status GCS of 14 with acute diffusion. Saturation 80% room air. She is 2 L nasal cannula chronically. She is placed on BiPAP and transferred to [facility]. At this facility she is noted to be quite hypertensive with systolic pressure in the 230s. Chest x-ray revealed possible pulmonary edema. She is given 80 mg Lasix IV 1. She started on a Cardene drip. Her current blood pressure currently 140. I held this medication. CT head revealed no acute intracranial findings. Chest x-ray revealed signs COPD possible pulmonary edema and bilateral lower x-rays for cellulitis.. She is currently more awake and alert on BiPAP 15/5 and 40%. Were asked to admit Subjective 06/30: Currently on nasal cannula. Appears much more comfortable. Tolerating diet. Get out of bed. Objective Vital Signs Date Time Temp Pulse Resp B/P Pulse Ox O2 Delivery O2 Flow Rate FiO2 06/30/16 12:00 80 06/30/16 08:30 92 Nasal Cannula 2.00 06/30/16 08:00 98.4 22 173/77 06/30/16 04:30 40 Intake and Output 06/29/16 06/29/16 06/30/16 08:00 16:00 00:00 Intake Total 415 ml Output Total 1175 ml Balance -760 ml Result Diagram: 06/30/16 0329 06/30/16 0335 Other Results Microbiology Date/Time Procedure Status Source Growth 06/29/16 15:13 Aerobic Blood Culture - Preliminary Resulted Blood Peripheral NO GROWTH IN 1 DAY 06/29/16 15:13 Anaerobic Blood Culture - Preliminary Resulted Blood Peripheral NO GROWTH IN 1 DAY Imaging Last Impressions Chest X-Ray 06/30/16 0000 Signed Impressions: Service Date/Time: Thursday, June 30, 2016 02:37 - CONCLUSION: 1. Cardiomegaly with mild basilar airspace disease and small effusions. Findings similar to June 29. Freddie Tubbs MD Head CT 06/29/16 0000 Signed Impressions: Service Date/Time: Wednesday, June 29, 2016 16:47 - CONCLUSION: No acute disease. Nirav Camacho MD Objective Remarks GENERAL: 60-year-old female, critically ill currently on on nasal cannula SKIN: Warm and dry. No rash HEAD: Atraumatic. Normocephalic. EYES: Pupils equal and round about 3 mm bilaterally and reactive. No scleral icterus. No injection or drainage. ENT: No nasal bleeding or discharge. Mucous membranes pink and moist. NECK: Trachea midline. No JVD. CARDIOVASCULAR: Regular rate and rhythm. S1, S2 no S4. RESPIRATORY: Ms. breath sounds throughout. Symmetrical excursion. Breath sounds equal bilaterally. GASTROINTESTINAL: Abdomen soft, non-tender, nondistended. Active bowel sounds are appreciated MUSCULOSKELETAL: Extremities without difficulty and peripheral edema. No obvious deformities. NEUROLOGICAL: Awake and alert. No obvious cranial nerve deficits. Motor grossly within normal limits. Five out of 5 muscle strength in the arms and legs. Slow but essentially normal speech. A/P Assessment and Plan Neuro/Psych: Encephalopathy - likely hypertensive plus minus CO2 retention Restless like syndrome\\ Diabetic neuropathy CT head revealed no acute intracranial findings On Requip "3 mg by mouth at night. Decreased to 0.25 mg at night light of altered mental status. Acetaminophen for fever CT head 06/29 revealed no acute intracranial findings Holding gabapentin 200 mg twice a day in light of altered mental status and resume clinically indicated CV: Hypertensive emergency History dyslipidemia Initial systolic blood pressure 2[30s. Start on Cardene currently at 5 mill grams now. This be held. Culture for systolic blood pressure around 25%. Around 180 recommended Home medications include lisinopril 5 mill grams daily, metoprolol 50 mill grams twice a day, clonidine 0.1 mg 3 times a day, nifedipine 60 mill grams every 12 hours, Imdur 30 mg daily and hydralazine 100 mg daily. Slowly resume home medications as above. See orders EKG showed normal sinus rhythm. No acute ST-T changes. Troponin cycled. Echocardiogram 2016 EF 55-60%. No regional wall motion abnormality. LEXIE- 61 mmHg. Mild MR. Resp: Acute hypoxemic respiratory failure Severe COPD/O2 dependent HERACLIO/no CPAP at home Previously on BiPAP 15/5 at 40%. Wean as tolerated. Wean to nasal cannula Bronchodilator therapy every 6 hours and as needed *Pulmicort twice a day while altered At home Anoro Ellipta 62.5/25 one inhalation daily and Symbicort 160/4.5 2 puffs every 12 hours with as needed albuterol Chest x-ray revealed possible pulmonary edema with bilateral lower lobe infiltrate/atelectasis Received 80 mg IV Lasix in ED GI: Patient is currently nothing by mouth and advanced to ADA diet Protonix for GI prophylaxis Colace/as needed Senokot for bowel regimen : Bonilla will be placed for accurate I's and O's in a critically ill patient Endo: Diabetes mellitus with neuropathy At home on Levemir 10 units twice a day with sliding scale insulin. We'll start on lightening scale insulin with Accu-Cheks every hours to maintain euglycemia/low regimen Renal: Chronic kidney disease stage III Creatinine currently close to within normal limits. Avoid nephrotoxic drugs Noted LIZANDRO 1-80 last admission/speckled. Will need follow-up Heme: Normocytic anemia Monitor CBC daily ID: Cefepime/Zithromax day #2. Zithromax for possible pulmonary coverage/atypical UA negative/, sputum, influenza and blood cultures 2 all ordered in ED yesterday FEN: Replace electrolytes as clinically indicated per ICU likely protocol MSK: Access - Utilize peripheral IV. Central line if indicated Prophylaxis - GI - Protonix - DVT - SCD/heparin subcutaneous Critical Care: The total care time was 35 minutes. Time to perform other separately billable procedures was not included in the critical care time. Patient is stable from a critical care medicine standpoint. We'll assign care to hospitalist in a.m. 07/01. Joseph Reilly MD Jun 30, 2016 13:49
[2016-06-30] MEDS: GABAPENTIN 300 MG CAP PO SCH (17:45)
[2016-06-30] MEDS: ATORVASTATIN 20 MG TAB PO SCH (22:16)
[2016-06-30] MEDS: AZITHROMYCIN INJ 500 MG in SODIUM CHLOR 0.9% 250 ML INJ 250 ML IV SCH (22:18)
[2016-07-01] VITALS (18 sets, daily range): BP systolic 136–151; BP diastolic 67–77; PULSE 60–78; RESP 22–26; TEMP 97.8–98.9; O2SAT 90–93
[2016-07-01] MEDS: INSULIN NovoLIN REGULAR SUPPLEMENTAL SCALE SQ SCH ×3 (00:13→11:56)
[2016-07-01] MEDS: RESP: ALBUTEROL 2.5 MG/IPRATROPIUM 0.5 MG NEB (SCH) INH ×4 (03:45→15:07)
[2016-07-01] MEDS: CHLORHEXIDINE GLUCONATE 2 % 1 PACK (2 CLOTHS) TOP SCH (04:00)
[2016-07-01] MEDS: SODIUM CHLOR 0.9% 1000 ML INJ 1,000 ML IV SCH (05:08)
--- NOTE | 2016-07-01 05:27 | RADRPT ---
EXAM DATE/TIME: 07/01/2016 03:38 [facility] COMPARISON: CHEST SINGLE AP, June 30, 2016, 2:37. INDICATIONS : Shortness of breath, possible pulmonary disease. MEDICAL HISTORY : Chronic obstructive pulmonary disease. SURGICAL HISTORY : None. ENCOUNTER: Subsequent ACUITY: 3 days PAIN SCORE: Non-responsive. LOCATION: Bilateral chest FINDINGS: A single view of the chest demonstrates basilar airspace disease similar to June 30. Cardiomegaly. N o pneumothorax. CONCLUSION: 1. Basilar airspace disease similar to June 30. Freddie Tubbs MD on July 01, 2016 at 5:25 Board Certified Radiologist. This report was verified electronically.
[2016-07-01] MEDS: cloNIDine HCL 0.1 MG TAB PO SCH ×2 (06:48→14:19)
[2016-07-01] MEDS: methylPREDNISolone SOD SUCC 40 MG/1 ML VIAL IV PUSH SCH (06:48)
[2016-07-01] MEDS: ISOSORBIDE MONONITRATE 30 MG TAB PO SCH (06:48)
[2016-07-01] MEDS: hydrALAZINE HCL 100 MG TAB PO SCH ×2 (06:51→15:53)
[2016-07-01 07:35] LABS: BASOPHIL % 0.1 % (0.0-2.0); HEMATOCRIT 31.2 % (35.0-46.0); HEMO FLAGS DIFF FINAL; LYMPH % 5.6 % (9.0-44.0); LYMPHOCYTE # 0.4 TH/MM3 (1.0-4.8); MEAN CELL VOLUME 89.3 FL (80.0-100.0); MEAN CORPUSCULAR HEMOGLOBIN 29.4 PG (27.0-34.0); MEAN CORPUSCULAR HGB CONC 32.9 % (32.0-36.0); MONO % 4.6 % (0.0-8.0); NEUT % 89.7 % (16.0-70.0); PLATELET COUNT 260 TH/MM3 (150-450); RED BLOOD COUNT 3.49 MIL/MM3 (4.00-5.30); RED CELL DISTRIBUTION WIDTH 15.4 % (11.6-17.2); WHITE BLOOD COUNT 7.9 TH/MM3 (4.0-11.0)
--- NOTE | 2016-07-01 07:43 | HHI.PR ---
Subjective Remarks Patient seen and examined. She states her breathing is back to normal for her. She is currently on 5L O2 with sat of 93%. She uses continuous O2 at home at 2L , and it can go up to 5L if needed. She feels well today. Denies fevers/chills/ chest pain/shortness of breath/nausea or vomiting. Patient states she feels comfortable going home today. She states she has an appt with PCP on July 06 and that she will call her product marketing coordinator, Dr. Noble, on Saturday for an appt this week. She states will also f/u with her general expeditor. Patient says that she is claustrophobic and has been reluctant to do CPAP in the past because of the mask being on her face, but says "I think I need it". She states she does want to be evaluated for this as it "will keep me out of the hospital". Objective Vital Signs Date Time Temp Pulse Resp B/P Pulse Ox O2 Delivery O2 Flow Rate FiO2 07/01/16 07:00 76 07/01/16 06:00 70 07/01/16 05:00 68 07/01/16 04:00 72 07/01/16 04:00 97.8 73 26 136/67 91 07/01/16 03:00 91 Nasal Cannula 4.00 07/01/16 03:00 64 07/01/16 02:00 62 07/01/16 01:00 68 07/01/16 00:00 98.9 71 22 142/76 93 07/01/16 00:00 78 06/30/16 23:00 92 Nasal Cannula 4.00 06/30/16 23:00 80 06/30/16 22:00 80 06/30/16 21:04 92 Nasal Cannula 5.00 06/30/16 21:00 74 06/30/16 20:00 78 06/30/16 20:00 98.8 76 24 154/77 92 06/30/16 19:00 75 06/30/16 19:00 92 Nasal Cannula 4.00 06/30/16 18:09 91 Nasal Cannula 4.00 06/30/16 18:00 71 06/30/16 17:10 99.1 75 22 152/73 91 06/30/16 16:00 80 06/30/16 16:00 99.0 64 22 141/64 94 06/30/16 14:00 80 06/30/16 12:00 80 06/30/16 12:00 97.7 79 20 126/62 94 06/30/16 10:00 80 06/30/16 08:30 92 Nasal Cannula 2.00 06/30/16 08:00 80 06/30/16 08:00 98.4 66 22 173/77 91 I/O 06/30/16 06/30/16 06/30/16 07/01/16 07/01/16 07/01/16 07:00 15:00 23:00 07:00 15:00 23:00 Intake Total 679 ml 1091 ml 928 ml Output Total 625 ml 600 ml 800 ml Balance 54 ml 491 ml 128 ml Intake Oral 480 ml 240 ml IV Total 679 ml 611 ml 688 ml Output Urine Total 625 ml 600 ml 800 ml Result Diagram: 07/01/16 0700 06/30/16 0335 Imaging Last Impressions Chest X-Ray 07/01/16 0600 Signed Impressions: Service Date/Time: Friday, July 01, 2016 03:38 - CONCLUSION: 1. Basilar airspace disease similar to June 30. Freddie Tubbs MD Head CT 06/29/16 0000 Signed Impressions: Service Date/Time: Wednesday, June 29, 2016 16:47 - CONCLUSION: No acute disease. Nirav Camacho MD Objective Remarks GENERAL: 60-year-old female, NAD, currently on on nasal cannula 5L SKIN: Warm and dry. No rash HEAD: Atraumatic. Normocephalic. EYES: Pupils equal and round and reactive. No scleral icterus. No injection or drainage. ENT: No nasal bleeding or discharge. Mucous membranes pink and moist. NECK: Trachea midline. No JVD. CARDIOVASCULAR: Regular rate and rhythm. RESPIRATORY: Breath sounds equal. CTAB, no w/r/c. No increased work of breathing. Speaking in full complete sentences. O2 sat 93% on 5 L nasal cannula. Reduced oxygen to 3 L. GASTROINTESTINAL: Abdomen soft, non-tender, nondistended. Active bowel sounds MUSCULOSKELETAL: Extremities without difficulty and peripheral edema. No obvious deformities. NEUROLOGICAL: Awake and alert. No obvious cranial nerve deficits. Motor grossly within normal limits. Normal speech. A/P Assessment and Plan A/P: 1. COPD: on admission had acute hypoxemic respiratory failure. Severe COPD/O2 dependent. HERACLIO/no CPAP at home. Weaned to nasal cannula. Bronchodilator therapy every 6 hours and as needed. At home Anoro Ellipta 62.5/25 one inhalation daily and Symbicort 160/4.5 2 puffs every 12 hours with as needed albuterol. Received 80 mg IV Lasix in ED. Significantly improved today, back to baseline. Weaned O2 to 3 L, patient has oxygen at home up to 5 L as needed. Goal O2 sat 8892%. Counseled patient on the importance of her following up with her product marketing coordinator, Dr. Noble, within the next 1 week, as soon as possible. Patient states that she will call for an appointment on Saturday. She has his information from her prior discharge paperwork. Patient may need CPAP at night. Continue Azithromycin x5 days and Prednisone 40mg x5 days on d/c for COPD exacerbation. 2. Hypertension: Initial systolic blood pressure 230s. S/p Francesca kinsey. Currently BP 144/77, HR 60. Home medications include lisinopril 5 mill grams daily, metoprolol 50 mill grams twice a day, clonidine 0.1 mg 3 times a day, nifedipine 60 mill grams every 12 hours, Imdur 30 mg daily and hydralazine 100 mg daily. EKG showed normal sinus rhythm. No acute ST-T changes. Troponin negative. Echocardiogram 2017 EF 55-60%. No regional wall motion abnormality. LEXIE- 61 mmHg. Mild MR. No events noted on telemetry. 3. Questionable Pneumonia: No leukocytosis, afebrile, dry cough, no sputum production. Chest x-ray showed possible pulmonary edema with bilateral lower lobe infiltrate/atelectasis. On Zithromax day #3 for possible pulmonary coverage /atypical. UA negative/ blood cultures negative 2 days. Continue azithromycin 5 days on discharge 4. DM with neuropathy: At home on Levemir 10 units twice a day with sliding scale insulin. SSI with Accu-Cheks 5. CKD stage III: Creatinine currently close to within normal limits. Avoid nephrotoxic drugs. Noted LIZANDRO 1-80 last admission/speckled. Will need follow- up. Counseled patient on the importance of following up with her general expeditor in 1 week of discharge. 6. Normocytic anemia: No active bleeding. Recheck labs in am. 7. DVT Prophylaxis: - SCD/heparin subcutaneous 8. Social work for d/c planning as needed. Dispo: Stable for discharge home today, with follow-up with PCP as scheduled, and follow-up appointments to be made with product marketing coordinator and general expeditor. Janessa Cervantes MD Jul 01, 2016 07:43
[2016-07-01 07:53] LABS: BICARBONATE 24.5 MEQ/L (21.0-32.0); MAGNESIUM 2.2 MG/DL (1.5-2.5); POTASSIUM 4.5 MEQ/L (3.5-5.1)
[2016-07-01] MEDS: MULTIVITAMIN TAB PO SCH (08:30)
[2016-07-01] MEDS: GABAPENTIN 300 MG CAP PO SCH ×2 (08:30→14:19)
[2016-07-01] MEDS: METOPROLOL TARTRATE 50 MG TAB PO SCH (08:30)
[2016-07-01] MEDS: NIFEdipine 60 MG SUSTAINED RELEASE TAB PO SCH (08:30)
[2016-07-01] MEDS: CALCIUM/VITAMIN D 250 MG/125 U TAB PO SCH (08:30)
[2016-07-01] MEDS: CYANOCOBALAMIN 1,000 MCG TAB PO SCH (08:30)
[2016-07-01] MEDS: DOCUSATE SODIUM 100 MG CAP PO SCH (08:30)
[2016-07-01] MEDS: HEPARIN SODIUM - SQ 10,000 UNITS/ML VIAL SQ SCH (08:30)
[2016-07-01] MEDS: ASPIRIN EC 81 MG TABEC PO SCH (08:30)
[2016-07-01] MEDS: PANTOPRAZOLE SODIUM 40 MG VIAL IV SCH (08:31)
[2016-07-01] MEDS: SODIUM CHLORIDE 0.9% FLUSH 5 ML FLUSH IV FLUSH SCH (08:35)
[2016-07-01] MEDS: BUDESONIDE-FORMOTEROL 160/4.5 MCG INHALER INH SCH (08:36)
[2016-07-01] MEDS ORDERED: AZIT500T2 PO ×2 (13:00)
--- NOTE | 2016-07-01 13:01 | HHI.DCPOC ---
Discharge Care Plan Diagnosis: (1) Steroid-induced diabetes (2) Fever (3) Acute renal failure (4) Anemia (5) Cough (6) Dyspnea (7) Pain (8) Lumbar spinal stenosis (9) CAP (community acquired pneumonia) (10) Lumbar spine instability (11) Dehydration (12) CKD (chronic kidney disease) (13) Accelerated hypertension (14) Encephalopathy (15) Chronic kidney disease (CKD) (16) Pulmonary edema (17) Acute respiratory failure with hypoxia (18) Hypertensive emergency (19) Hyponatremia (20) COPD (chronic obstructive pulmonary disease) (21) Hypertensive crisis (22) Acute respiratory failure (23) COPD with acute exacerbation (24) HCAP (healthcare-associated pneumonia) Goals to Promote Your Health * To prevent worsening of your condition and complications * To maintain your health at the optimal level Directions to Meet Your Goals Take your medications as prescribed Follow your dietary instruction Follow activity as directed Keep your appointments as scheduled Take your immunizations and boosters as scheduled If your symptoms worsen call your PCP, if no PCP go to Urgent Care Center or Emergency Room Smoking is Dangerous to Your Health. Avoid second hand smoke Call the 24-hour hour crisis hotline for domestic abuse at Janessa Cervantes MD Jul 01, 2016 13:01
[2016-07-01] MEDS ORDERED: PRED20 PO ×2 (13:17)
[2016-07-01] MEDS ORDERED: predniSONE 20 MG TAB PO SCH (21:00)
== END 2016-07-01 16:42 | disposition home or self-care (01) | DRG 189 ==
LOC: NEPA 14:58 → NEDA 17:40 → HIMN 21:10 → HCIS 06-30 16:55
PROVIDERS: ADMIT Family Medicine; ATTEND Family Medicine
PROC: 5A09357 Assistance with Respiratory Ventilation, Less than 24 Consecutive Hours, Continuous Positive Airway Pressure (ICD-10-PCS; principal; 2016-06-29)
PROC: 0T9B70Z Drainage of Bladder with Drainage Device, Via Natural or Artificial Opening (ICD-10-PCS; 2016-06-29)
DX: J96.01 Acute respiratory failure with hypoxia (principal); J44.1 Chronic obstructive pulmonary disease with (acute) exacerbation; I67.4 Hypertensive encephalopathy; E11.22 Type 2 diabetes mellitus with diabetic chronic kidney disease; E11.40 Type 2 diabetes mellitus with diabetic neuropathy, unspecified; I16.1 Hypertensive emergency; J98.11 Atelectasis; Z86.74 Personal history of sudden cardiac arrest; N18.3 Chronic kidney disease, stage 3 (moderate); I12.9 Hypertensive chronic kidney disease with stage 1 through stage 4 chronic kidney disease, or unspecified chronic kidney disease; M06.9 Rheumatoid arthritis, unspecified; F41.9 Anxiety disorder, unspecified; E78.00 Pure hypercholesterolemia, unspecified; Z87.442 Personal history of urinary calculi; I25.2 Old myocardial infarction; Z96.653 Presence of artificial knee joint, bilateral; Z99.81 Dependence on supplemental oxygen; E78.5 Hyperlipidemia, unspecified; Z87.891 Personal history of nicotine dependence; Z98.1 Arthrodesis status; G47.33 Obstructive sleep apnea (adult) (pediatric); I34.0 Nonrheumatic mitral (valve) insufficiency; D64.9 Anemia, unspecified; S22.000D Wedge compression fracture of unspecified thoracic vertebra, subsequent encounter for fracture with routine healing; R91.8 Other nonspecific abnormal finding of lung field; F40.240 Claustrophobia
CPT/HCPCS: 36600; 51702; 70450; 71010; 80048; 80053; 80307; 81001; 82140; 82550; 82805; 82948; 83605; 83735; 84100; 84484; 85025; 85610; 85730; 87040; 87641; 93005; 94002; 94003; 94150; 94640; 94664; 96365; 96374; 96375; C9113; J0456; J1644; J1940; J2920; J2930; J7030; J7050

== ENCOUNTER → 2016-09-06 | Outpatient (CLI) | payer OTHER ==
[~2016-09-06] MED LIST changes: +ATOR20TA15 PO; +AZIT500T2 PO; -GABA100C4 PO; +GABA300C5 PO; +ISOS30TA3 PO; -ISOS60TA PO; -NIFE20 PO; +NIFE60TA58 PO; -PRED10PA PO; +PRED20 PO; -REQU3TAB PO; +TRAM50TA PO
[2016-09-06 12:07] LABS: BLOOD GAS BASE EXCESS 2.6 mmol/L (-2-2); BLOOD GAS CARBOXYHEMOGLOBIN 5.1 % (0-4); BLOOD GAS HCO3 26 mmol/L (22-26); BLOOD GAS METHEMOGLOBIN 1.2 % (0-2); BLOOD GAS O2 HGB SATURATION 87 % (90-100); BLOOD GAS OXYGEN CONTENT 13.6 Vol % (12.0-20.0); BLOOD GAS PCO2 40 mmHg (38-42); BLOOD GAS PO2 64 mmHg (61-120); BLOOD GAS TOTAL HGB 11.1 G/DL (12.0-16.0); TEMP CORR TO 98.6
[2016-09-06 12:08] LABS: CRITICAL VALUE YES; DRAW SITE RT RADIAL; FIO2 21 %; NUMBER OF ARTERIAL PUNCTURES 1; STAT NO; ULNAR PULSE PRESENT
--- NOTE | 2016-09-12 09:25 | RSPPFT ---
DATE OF PROCEDURE: 09/06/16 COMMENTS: VOLUMES DYNAMIC: FVC and FEV1 severely reduced. STATIC: TLC normal, FRC mildly increased, RV moderately increased. FLOWS: FEV1% moderately reduced; FEF 25-75 severely reduced. DIFFUSION: Severely reduced. FLOW VOLUME LOOP: Pattern of variable intrathoracic airways obstruction. IMPRESSION: Severe obstructive ventilatory defect with reduction in diffusion and hyperinflation consistent with emphysema. Airways resistance is increased. There is minimal change post-bronchodilator.
== END ==
LOC: HRSP 10:28
PROVIDERS: ATTEND Internal Medicine
DX: J44.9 Chronic obstructive pulmonary disease, unspecified (principal)
CPT/HCPCS: 36600; 82805; 94060; 94726; 94729

== ENCOUNTER 2016-12-14 14:00 | Inpatient (IN) | payer OTHER, MEDICARE ==
[2016-12-14] VITALS (20 sets, daily range): BP systolic 94–160; BP diastolic 50–78; PULSE 58–92; RESP 16–42; TEMP 97.8; O2SAT 77–100
[~2016-12-14] VITALS: Ht 154.9 cm; Wt 75.9 kg
[2016-12-14] MEDS ORDERED: methylPREDNISolone SOD SUCC 125 MG/2 ML VIAL IVP ONE (14:15)
[2016-12-14] MEDS ORDERED: MAGNESIUM SULFATE 1 GM PREMIX 100 ML IV ONE (14:15)
[2016-12-14] MEDS ORDERED: SODIUM CHLORIDE 0.9% FLUSH 10 ML FLUSH IVF PRN ×2 (14:15→16:45)
[2016-12-14] MEDS: RESP: ALBUTEROL 2.5 MG/3 ML NEB (SCH) INH (14:19)
--- NOTE | 2016-12-14 14:19 | PD ---
HPI Chief Complaint: Respiratory Symptoms Time Seen by Provider: 14:06 Travel History International Travel<30 days: No Contact w/Intl Traveler<30days: No Traveled to known affect area: No History of Present Illness HPI 3 DAYS OF DIFFICULTY BREATHING COPD HX, OXYGEN DEPENDANT, NOT DOING WELL BUT REFUSED EMS TWO DAYS IN A ROW, FINALLY TODAY DAUGHTER WAS ABLE TO DRIVE HER INTO ER FOR EVAL PFSH Past Medical History Anemia: Yes Arthritis: Yes (RHEUMATOID ) Asthma: No Autoimmune Disease: No Anxiety: Yes Depression: No Heart Rhythm Problems: No Cancer: No Cardiovascular Problems: Yes High Cholesterol: Yes Chest Pain: No Congestive Heart Failure: No COPD: Yes Cerebrovascular Accident: No Diabetes: Yes Diminished Hearing: No Endocrine: No Genitourinary: Yes (urinary retention) Hepatitis: No Hiatal Hernia: No Hypertension: Yes Immune Disorder: No Kidney Stones: Yes Musculoskeletal: No (Unable to obtain.) Neurologic: No Psychiatric: No Respiratory: Yes Immunizations Current: Yes Migraines: No Myocardial Infarction: Yes Seizures: No Sleep Apnea: No Thyroid Disease: No Past Surgical History Abdominal Surgery: Yes AICD: No Arteriovenous Shunt: No Body Medical Devices: LEFT HIP HARDWARE Cardiac Surgery: No Ear Surgery: No Endocrine Surgery: No Eye Surgery: No Genitourinary Surgery: No Gynecologic Surgery: No Hysterectomy: Yes Joint Replacement: Yes (KWADWO. 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 Reported Meds & Prescriptions Reported Meds & Active Scripts Active Prednisone 20 Mg Tab 40 Mg PO DAILY Azithromycin 500 Mg Tab 500 Mg PO DAILY Reported Tramadol (Tramadol HCl) 50 Mg Tab 50 Mg PO TID PRN Atorvastatin (Atorvastatin Calcium) 20 Mg Tab 20 Mg PO HS Nifedipine ER 24 HR (Nifedipine) 60 Mg Tab 60 Mg PO BID Isosorbide Mononitrate ER (Isosorbide Mononitrate) 30 Mg [place] 30 Mg PO DAILY Gabapentin 300 Mg Cap 300 Mg PO TID Anoro Ellipta Inh (Umeclidinium/Vilanterol) 62.5-25 Mcg/Act Aero 1 Puff INH DAILY Vitamin B-12 Cr (Cyanocobalamin) 1,000 Mcg Tab 1,000 Mcg PO DAILY Metoprolol Tartrate 50 Mg Tab 50 Mg PO BID Lisinopril 5 Mg Tab 5 Mg PO DAILY Levemir Inj (Insulin Detemir) 1,000 unit/ 10 ML Vial 10 Units SQ BID Do not mix with any other Insulin. Novolog Inj (Insulin Aspart) 1,000 Unit/10 Ml Vial 0 SQ DIRECTED Sliding Scale as directed. Hydralazine (Hydralazine HCl) 100 Mg Tab 100 Mg PO Q8HR Take with meals Clonidine (Clonidine HCl) 0.1 Mg Tab 0.1 Mg PO Q8HR Symbicort Inh (Budesonide/Formoterol Fumarate) 160-4.5 Mcg/Act Aero 2 Puff INH Q12HR Albuterol Neb (Albuterol Sulfate) 2.5 Mg/0.5 Ml Neb 2.5 Mg NEB Q4HR NEB PRN Note: The Albuterol Sulfate Inhalation Solution is concentrated and must be diluted. Read complete instructions carefully before using. Review of Systems Except as stated in HPI: all other systems reviewed are Neg Respiratory: Positive: Shortness of Breath Physical Exam Exam Limitations: Clinical Condition Narrative GENERAL: SKIN: Warm and dry. HEAD: Atraumatic. Normocephalic. EYES: Pupils equal and round. No scleral icterus. No injection or drainage. ENT: No nasal bleeding or discharge. Mucous membranes pink and moist. NECK: Trachea midline. No JVD. CARDIOVASCULAR: Regular rate and rhythm. RESPIRATORY: TACHYPNEIC, RESP DISTRESS WITH TRIPODING AND RETRACTIONS GASTROINTESTINAL: Abdomen soft, non-tender, nondistended. MUSCULOSKELETAL: Extremities without clubbing, cyanosis, or edema. No obvious deformities. NEUROLOGICAL: Awake and alert. No obvious cranial nerve deficits. Motor grossly within normal limits. Five out of 5 muscle strength in the arms and legs. Normal speech. PSYCHIATRIC: Appropriate mood and affect; insight and judgment normal. Data Data Last Documented VS Vital Signs Date Time Temp Pulse Resp B/P (MAP) Pulse Ox O2 Delivery O2 Flow Rate FiO2 12/14/16 15:30 90 100 12/14/16 15:19 58 16 102/56 (71) Ventilator Orders Orders Complete Blood Count With Diff (12/14/16 14:06) Basic Metabolic Panel (Bmp) (12/14/16 14:06) B-Type Natriuretic Peptide (12/14/16 14:06) Act Partial Throm Time (Ptt) (12/14/16 14:06) Prothrombin Time / Inr (Pt) (12/14/16 14:06) Magnesium (Mg) (12/14/16 14:06) Ckmb (Isoenzyme) Profile (12/14/16 14:06) Troponin I (12/14/16 14:06) Arterial Blood Gas (Abg) (12/14/16 14:06) Urinalysis - C+S If Indicated (12/14/16 14:06) Iv Access Insert/Monitor (12/14/16 14:06) Electrocardiogram (12/14/16 14:06) Ecg Monitoring (12/14/16 14:06) Oximetry (12/14/16 14:06) Oxygen Administration (12/14/16 14:06) Chest, Single Ap (12/14/16 14:06) Sodium Chloride 0.9% Flush (Ns Flush) (12/14/16 14:15) Methylprednisolone So Succ Inj (Solumedr (12/14/16 14:15) Albuterol Neb (Albuterol Neb) (12/14/16 14:15) Resp Bipap / Cpap Non Invas Vt (12/14/16 14:06) Magnesium Sulfate 1 Gm Premix (Magnesium (12/14/16 14:15) ^ Straight Catheter (12/14/16 14:12) Protein Corrected Calcium(Pcc) (12/14/16 14:10) CKMB (12/14/16 14:10) CKMB% (12/14/16 14:10) Etomidate Inj (Amidate Inj) (12/14/16 15:09) Succinylcholine Inj (Quelicin Inj) (12/14/16 15:09) Midazolam Inj (Versed Inj) (12/14/16 15:45) Midazolam 100 Mg/100 Ml Inj (Versed Inj) (12/14/16 15:45) Neurological Rass Scale Q30MX2,Q2HX4,Q4H (12/14/16 15:31) Sodium Chlor 0.9% 1000 Ml Inj (Ns 1000 M (12/14/16 15:45) Midazolam 100 Mg/100 Ml Inj (Versed Inj) (12/14/16 15:38) Chest, Single Ap (12/14/16 15:48) Parathyroid Hormone Intact (12/14/16 15:52) Pth Related Peptide (12/14/16 15:52) Vitamin D 1, 25 Dihydroxy (12/14/16 15:52) Vitamin D, 25-Hydroxy (12/14/16 15:52) Amylase (12/14/16 15:52) Lipase (12/14/16 15:52) Furosemide Inj (Lasix Inj) (12/14/16 16:00) Urinary Catheter Insert/Apply (12/14/16 15:51) Admit Order (Ed Use Only) (12/14/16 15:53) Labs Laboratory Tests Test 12/14/16 14:10 12/14/16 14:15 12/14/16 14:40 12/14/16 14:50 White Blood Count 12.1 TH/MM3 Red Blood Count 3.43 MIL/MM3 Hemoglobin 9.8 GM/DL Hematocrit 30.9 % Mean Corpuscular Volume 90.1 FL Mean Corpuscular Hemoglobin 28.7 PG Mean Corpuscular Hemoglobin Concent 31.9 % Red Cell Distribution Width 14.8 % Platelet Count 273 TH/MM3 Mean Platelet Volume 7.4 FL Neutrophils (%) (Auto) 89.5 % Lymphocytes (%) (Auto) 4.5 % Monocytes (%) (Auto) 5.8 % Eosinophils (%) (Auto) 0.1 % Basophils (%) (Auto) 0.1 % Neutrophils # (Auto) 10.8 TH/MM3 Lymphocytes # (Auto) 0.5 TH/MM3 Monocytes # (Auto) 0.7 TH/MM3 Eosinophils # (Auto) 0.0 TH/MM3 Basophils # (Auto) 0.0 TH/MM3 CBC Comment DIFF FINAL Differential Comment Prothrombin Time 12.2 SEC Prothromb Time International Ratio 1.1 RATIO Activated Partial Thromboplast Time 29.3 SEC Blood Urea Nitrogen 69 MG/DL Creatinine 5.10 MG/DL Random Glucose 170 MG/DL Total Protein 7.3 GM/DL Calcium Level LESS THAN 5.0 MG/DL Magnesium Level 2.0 MG/DL Sodium Level 129 MEQ/L Potassium Level 4.9 MEQ/L Chloride Level 89 MEQ/L Carbon Dioxide Level 22.4 MEQ/L Anion Gap 18 MEQ/L Estimat Glomerular Filtration Rate 9 ML/MIN Protein Corrected Calcium 5.0 MG/DL Total Creatine Kinase 377 U/L Creatine Kinase MB 3.1 NG/ML Creatine Kinase MB % 0.8 % Troponin I LESS THAN 0.02 NG/ML B-Type Natriuretic Peptide 1279 PG/ML Urine Color DARK-YELLOW Urine Turbidity HAZY Urine pH 5.5 Urine Specific [place]arton 1.018 Urine Protein 100 mg/dL Urine Glucose (UA) NEG mg/dL Urine Ketones NEG mg/dL Urine Occult Blood NEG Urine Nitrite NEG Urine Bilirubin NEG Urine Urobilinogen 2.0 MG/DL Urine Leukocyte Esterase NEG Urine RBC LESS THAN 1 /hpf Urine WBC 1 /hpf Urine Squamous Epithelial Cells 1 /hpf Microscopic Urinalysis Comment CULT NOT INDICATED Blood Gas Puncture Site RT RADIAL Blood Gas Patient Temperature 98.6 Blood Gas HCO3 20 mmol/L Blood Gas Base Excess -5.8 mmol/L Blood Gas Oxygen Saturation 94 % Arterial Blood pH 7.25 Arterial Blood Partial Pressure CO2 48 mmHg Arterial Blood Partial Pressure O2 99 mmHG Arterial Blood Oxygen Content 14.7 Vol % Arterial Blood Carboxyhemoglobin 1.5 % Arterial Blood Methemoglobin 0.9 % Blood Gas Hemoglobin 11.0 G/DL Oxygen Delivery Device BIPAP Blood Gas Ventilator Setting EPAP 7/IPAP 15 Blood Gas Inspired Oxygen 100 % MDM Medical Decision Making Medical Screen Exam Complete: Yes Emergency Medical Condition: Yes Medical Record Reviewed: Yes Interpretation(s) SINUS LORENZO, 56, NO STEMI PATTERN Differential Diagnosis PNA V PULM EDEMA V COPD V CHF EXAC V NONSTEMI V STEMI Narrative Course patient placed on trial run of bipap, however within 30 min of trial , abg shows acidosis and visible tiring on exam, will intubate for resp failure. pt found to have pulm edema however pt was hypotensive and requiring pressors. no acute ivf hydration given during my management. case turned over to medical biller/coder , Critical Care Narrative CRITICAL CARE NOTE: With evaluation of the patient, labs, EKG, receipt of radiologic studies, administration of medications, reevaluation the patient and discussion of the patient with the admitting physicians, the total critical care time was [60] minutes. Time to perform other separately billable procedures was not included in the critical care time. Procedures Procedure Narrative The patient was put in optimal position for the procedure. Rapid sequence intubation was initiated by me using [20] milligrams of etomidate IV and [50] milligrams of [SUCCYNILCHOLINE] IV. The patient was intubated with a [7.5] cuffed endotracheal tube. Tube placement was confirmed by visualization of the tube and balloon passing through the cords, capnometry and subsequent chest x- ray. Breath sounds were equal and well aerated bilaterally postintubation. No breath sounds over stomach. Patient tolerated procedure well. Diagnosis Primary Impression: ACUTE HYPOXEMIC RESP FAILURE Additional Impression: Acute pulmonary edema Umberto Shirley MD Dec 14, 2016 14:19
[2016-12-14 14:29] LABS: AUTOMATED NEUTROPHIL # 10.8 TH/MM3 (1.8-7.7); BASOPHIL % 0.1 % (0.0-2.0); EOSINOPHIL % 0.1 % (0.0-4.0); HEMATOCRIT 30.9 % (35.0-46.0); HEMO FLAGS DIFF FINAL; LYMPH % 4.5 % (9.0-44.0); LYMPHOCYTE # 0.5 TH/MM3 (1.0-4.8); MEAN CELL VOLUME 90.1 FL (80.0-100.0); MEAN CORPUSCULAR HEMOGLOBIN 28.7 PG (27.0-34.0); MEAN CORPUSCULAR HGB CONC 31.9 % (32.0-36.0); MONO % 5.8 % (0.0-8.0); NEUT % 89.5 % (16.0-70.0); PLATELET COUNT 273 TH/MM3 (150-450); RED BLOOD COUNT 3.43 MIL/MM3 (4.00-5.30); RED CELL DISTRIBUTION WIDTH 14.8 % (11.6-17.2); WHITE BLOOD COUNT 12.1 TH/MM3 (4.0-11.0)
[2016-12-14 14:38] LABS: APTT (PATIENT) 29.3 SEC (24.3-30.1); INTERNATIONAL NORMALIZED RATIO 1.1 RATIO; PROTHROMBIN TIME - PATIENT 12.2 SEC (9.8-11.6)
[2016-12-14 14:45] LABS: ANION GAP 18 MEQ/L (5-15); BICARBONATE 22.4 MEQ/L (21.0-32.0); BLOOD UREA NITROGEN 69 MG/DL (7-18); CHLORIDE 89 MEQ/L (98-107); GLOMERULAR FILTRATION RATE 9 ML/MIN (>89); POTASSIUM 4.9 MEQ/L (3.5-5.1); SODIUM (NA) 129 MEQ/L (136-145)
[2016-12-14 14:49] LABS: CREATINE KINASE 377 U/L (26-192)
--- NOTE | 2016-12-14 15:01 | RADRPT ---
EXAM DATE/TIME: 12/14/2016 14:20 [facility] COMPARISON: CHEST SINGLE AP, July 01, 2016, 3:38. INDICATIONS : Shortness of breath. MEDICAL HISTORY : Chronic obstructive pulmonary disease. Congestive heart failure. SURGICAL HISTORY : Total knee replacement, left. Total knee replacement, right. Total hip replacement, left. Total hip replacement, right. ENCOUNTER: Initial ACUITY: 1 day PAIN SCORE: Non-responsive. LOCATION: Bilateral chest FINDINGS: A single portable frontal view of the chest is blurred by breathing motion artifact. Heart is enlarge d. Pulmonary vascular engorgement observed. Bibasilar mixed interstitial and intra-alveolar opacities . No discrete effusions. CONCLUSION: Cardiomegaly with interstitial pulmonary edema. Billy Quiroz Jr., MD on December 14, 2016 at 14:59 Board Certified Radiologist. This report was verified electronically.
[2016-12-14 15:02] LABS: BLOOD, URINE NEG (NEG); COMMENT (UR) CULT NOT INDICATED; CULTURE IF INDICATED CULT NOT INDICATED; GLUCOSE,URINE NEG (NEG); KETONE, URINE NEG (NEG); NITRITE,URINE NEG (NEG); PH, URINE 5.5 (5.0-8.5); SQUAMOUS EPITHELIAL CELL URINE 1 /hpf (0-5); URINE COLOR DARK-YELLOW (YELLW/STRAW)
[2016-12-14 15:02] LABS: CKMB 3.1 NG/ML (0.5-3.6)
[2016-12-14] MEDS ORDERED: SUCCINYLCHOLINE CHLORIDE 200 MG/10 ML VIAL ONE (15:09)
[2016-12-14] MEDS ORDERED: ETOMIDATE 20 MG/10 ML VIAL ONE (15:09)
[2016-12-14] MEDS ORDERED: MIDAZOLAM 100 MG/100 ML INJ 100 ML ONE (15:38)
[2016-12-14 15:39] LABS: BLOOD GAS BASE EXCESS -5.8 mmol/L (-2-2); BLOOD GAS CARBOXYHEMOGLOBIN 1.5 % (0-4); BLOOD GAS HCO3 20 mmol/L (22-26); BLOOD GAS METHEMOGLOBIN 0.9 % (0-2); BLOOD GAS O2 HGB SATURATION 94 % (90-100); BLOOD GAS OXYGEN CONTENT 14.7 Vol % (12.0-20.0); BLOOD GAS PCO2 48 mmHg (38-42); BLOOD GAS PO2 99 mmHG (61-120); CRITICAL VALUE YES; DRAW SITE RT RADIAL; FIO2 100 %; NUMBER OF ARTERIAL PUNCTURES 1; OXYGEN DEVICE BIPAP; STAT YES; TEMP CORR TO 98.6; ULNAR PULSE PRESENT; VENT SETTINGS EPAP 7/IPAP 15
[2016-12-14] MEDS ORDERED: SODIUM CHLOR 0.9% 1000 ML INJ 1,000 ML IV ONE ×3 (15:45→23:00)
[2016-12-14] MEDS ORDERED: MIDAZOLAM HCL 2 MG/2 ML VIAL IV PUSH ONE (15:45)
--- NOTE | 2016-12-14 15:51 | HHI.HP ---
HPI Service Critical Care Medicine Primary Care Physician Jn Castaneda M.D. Admission Diagnosis Acute respiratory failure Diagnosis: (1) Acute respiratory failure Diagnosis: Principal (2) Hypocalcemia Diagnosis: Principal (3) COPD with acute exacerbation Diagnosis: Principal (4) Hyponatremia Diagnosis: Principal (5) Acute kidney injury Diagnosis: Principal (6) DM (diabetes mellitus) Diagnosis: Principal (7) Urinary retention Diagnosis: Principal (8) Steroid-induced diabetes Diagnosis: Principal (9) Acute renal failure Diagnosis: Principal Chief Complaint: Shortness of breath Travel History International Travel<30 Days: No Contact w/Intl Traveler <30 Da: No Traveled to Known Affected Are: No History of Present Illness 61-year-old female. Date of admission 12/14/2016. Past records includes COPD/oxygen dependent, obstructive sleep apnea not using nocturnal CPAP , hypertension, morbid obesity. Hypertension, chronic kidney disease stage IV. She presents to [facility] 2 day history of shortness of breath. Review of Systems ROS Limitations: Intubated Past Family Social History Allergies: Coded Allergies: codeine (Unverified Adverse Reaction, Severe, 11/27/16) *MDRO Multi-Drug Resistant Organism (Verified Adverse Reaction, Unknown, ) MDR E. 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 Past Medical History History of hospital-acquired pneumonia Severe COPD on 2 L nasal cannula at home of on 2 L nasal cannula Obstructive sleep apnea not on CPAP Chronic kidney disease stage stage IV Diabetes mellitus with peripheral neuropathy Lumbar stenosis Hypertension dyslipidaemia Diabetes mellitus Past Surgical History Vaginal hysterectomy/bilateral salpingo-nephrectomy ORIF left hip T&A Lumbar fusion Reported Medications Active Prednisone 20 Mg Tab 40 Mg PO DAILY Azithromycin 500 Mg Tab 500 Mg PO DAILY Ceftin (Cefuroxime Axetil) 500 Mg Tab 500 Mg PO Q12HR Reported Tramadol (Tramadol HCl) 50 Mg Tab 50 Mg PO TID PRN Atorvastatin (Atorvastatin Calcium) 20 Mg Tab 20 Mg PO HS Nifedipine ER 24 HR (Nifedipine) 60 Mg Tab 60 Mg PO BID Isosorbide Mononitrate ER (Isosorbide Mononitrate) 30 Mg Malick 30 Mg PO DAILY Gabapentin 300 Mg Cap 300 Mg PO TID Anoro Ellipta Inh (Umeclidinium/Vilanterol) 62.5-25 Mcg/Act Aero 1 Puff INH DAILY Multi Vitamin (Multiple Vitamin) 1 Tab Tab 1 Tab PO DAILY Vitamin B-12 Cr (Cyanocobalamin) 1,000 Mcg Tab 1,000 Mcg PO DAILY Metoprolol Tartrate 50 Mg Tab 50 Mg PO BID Lisinopril 5 Mg Tab 5 Mg PO DAILY Levemir Inj (Insulin Detemir) 1,000 unit/ 10 ML Vial 10 Units SQ BID Do not mix with any other Insulin. Novolog Inj (Insulin Aspart) 1,000 Unit/10 Ml Vial 0 SQ DIRECTED Sliding Scale as directed. Hydralazine (Hydralazine HCl) 100 Mg Tab 100 Mg PO Q8HR Take with meals Clonidine (Clonidine HCl) 0.1 Mg Tab 0.1 Mg PO Q8HR Caltrate 600+D (Calcium Carbonate-Cholecalciferol) 600-800 Mg-Unit Tab 1 Tab PO DAILY Symbicort Inh (Budesonide/Formoterol Fumarate) 160-4.5 Mcg/Act Aero 2 Puff INH Q12HR Albuterol Neb (Albuterol Sulfate) 2.5 Mg/0.5 Ml Neb 2.5 Mg NEB Q4HR NEB PRN Note: The Albuterol Sulfate Inhalation Solution is concentrated and must be diluted. Read complete instructions carefully before using. Aspirin 81 Mg Tabdr 81 Mg PO DAILY Active Ordered Medications Reviewed in EMR Family History Patient siblings are alive and in good health. Unknown mother and father. Social History Previously smoked tobacco. No alcohol or IV drug use Physical Exam Vital Signs Vital Signs Date Time Temp Pulse Resp B/P (MAP) Pulse Ox O2 Delivery O2 Flow Rate FiO2 12/14/16 15:19 58 16 102/56 (71) 93 Ventilator 75 12/14/16 15:16 65 25 108/58 (75) 91 12/14/16 15:15 75 12/14/16 15:14 74 25 99/57 (71) 90 12/14/16 15:00 63 30 108/57 (74) 86 BiPAP 60 12/14/16 14:30 60 28 95/50 (65) 97 BiPAP 60 12/14/16 14:12 84 BiPAP 100 12/14/16 14:10 87 100 12/14/16 14:09 54 BiPAP 100 12/14/16 14:08 75 BiPAP 100 12/14/16 14:05 59 42 94/50 (65) 77 Physical Exam GENERAL: 60-year-old female, critically ill orotracheally intubated SKIN: Warm and dry. No rash. HEAD: Atraumatic. Normocephalic. EYES: Pupils equal and round about 3 mm bilaterally and reactive. No scleral icterus. No injection or drainage. ENT: No nasal bleeding or discharge. Mucous membranes pink and moist. NECK: Trachea midline. No JVD. Left IJ is clean dry and intact CARDIOVASCULAR: Regular rate and rhythm. S1, S2 no S4. RESPIRATORY: Diminished breath sounds throughout. Symmetrical excursion. Breath sounds equal bilaterally. GASTROINTESTINAL: Abdomen soft, non-tender, protuberant. Active bowel sounds are appreciated MUSCULOSKELETAL: Extremities without significant peripheral edema. No obvious deformities. NEUROLOGICAL: Positive gag. Positive corneal reflex. Withdraws to pain in all 4 extremities.Positive [place] test by tapping on ipsilateral movement facial nerve. Laboratory Laboratory Tests Test 12/14/16 14:10 12/14/16 14:15 12/14/16 14:40 12/14/16 14:50 White Blood Count 12.1 Red Blood Count 3.43 Hemoglobin 9.8 Hematocrit 30.9 Mean Corpuscular Volume 90.1 Mean Corpuscular Hemoglobin 28.7 Mean Corpuscular Hemoglobin Concent 31.9 Red Cell Distribution Width 14.8 Platelet Count 273 Mean Platelet Volume 7.4 Neutrophils (%) (Auto) 89.5 Lymphocytes (%) (Auto) 4.5 Monocytes (%) (Auto) 5.8 Eosinophils (%) (Auto) 0.1 Basophils (%) (Auto) 0.1 Neutrophils # (Auto) 10.8 Lymphocytes # (Auto) 0.5 Monocytes # (Auto) 0.7 Eosinophils # (Auto) 0.0 Basophils # (Auto) 0.0 CBC Comment DIFF FINAL Differential Comment Prothrombin Time 12.2 Prothromb Time International Ratio 1.1 Activated Partial Thromboplast Time 29.3 Blood Urea Nitrogen 69 Creatinine 5.10 Random Glucose 170 Total Protein 7.3 Calcium Level LESS THAN 5.0 Magnesium Level 2.0 Sodium Level 129 Potassium Level 4.9 Chloride Level 89 Carbon Dioxide Level 22.4 Anion Gap 18 Estimat Glomerular Filtration Rate 9 Protein Corrected Calcium 5.0 Total Creatine Kinase 377 Creatine Kinase MB 3.1 Creatine Kinase MB % 0.8 Troponin I LESS THAN 0.02 B-Type Natriuretic Peptide 1279 Urine Color DARK-YELLOW Urine Turbidity HAZY Urine pH 5.5 Urine Specific [place] 1.018 Urine Protein 100 Urine Glucose (UA) NEG Urine Ketones NEG Urine Occult Blood NEG Urine Nitrite NEG Urine Bilirubin NEG Urine Urobilinogen 2.0 Urine Leukocyte Esterase NEG Urine RBC LESS THAN 1 Urine WBC 1 Urine Squamous Epithelial Cells 1 Microscopic Urinalysis Comment CULT NOT INDICATED Blood Gas Puncture Site RT RADIAL Blood Gas Patient Temperature 98.6 Blood Gas HCO3 20 Blood Gas Base Excess -5.8 Blood Gas Oxygen Saturation 94 Arterial Blood pH 7.25 Arterial Blood Partial Pressure CO2 48 Arterial Blood Partial Pressure O2 99 Arterial Blood Oxygen Content 14.7 Arterial Blood Carboxyhemoglobin 1.5 Arterial Blood Methemoglobin 0.9 Blood Gas Hemoglobin 11.0 Oxygen Delivery Device BIPAP Blood Gas Ventilator Setting EPAP 7/IPAP 15 Blood Gas Inspired Oxygen 100 Result Diagram: 12/14/16 1410 12/14/16 1410 Imaging Last Impressions Chest X-Ray 12/14/16 1406 Signed Impressions: Service Date/Time: Wednesday, December 14, 2016 14:20 - CONCLUSION: Cardiomegaly with interstitial pulmonary edema. MD Reno Corey Jr.i VTE Risk Assessment Caprini VTE Risk Assessment: Mod/High Risk (score >= 2) Caprini Risk Assessment Model Point Value = 1 Point Value = 2 Point Value = 3 Point Value = 5 Age 41-60 Minor surgery BMI > 25 kg/m2 Swollen legs Varicose veins or History of unexplained or recurrent spontaneous Oral contraceptives or hormone replacement Sepsis (< 1 month) Serious lung disease, including pneumonia (< 1 month) Abnormal pulmonary function Acute myocardial infarction Congestive heart failure (< 1 month) History of inflammatory bowel disease Medical patient at bed rest Age 61-74 Arthroscopic surgery Major open surgery (> 45 min) Laparoscopic surgery (> 45 min) Malignancy Confined to bed (> 72 hours) Immobilizing plaster cast Central venous access Age >= 75 History of VTE Family history of VTE Factor V Leiden Prothrombin [id number] Lupus anticoagulant Anticardiolipin antibodies Elevated serum homocysteine Heparin-induced thrombocytopenia Other congenital or acquired thrombophilia Stroke (< 1 month) Elective arthroplasty Hip, pelvis, or leg fracture Acute spinal cord injury (< 1 month) Prophylaxis Regimen Total Risk Factor Score Risk Level Prophylaxis Regimen 0-1 Low Early ambulation 2 Moderate Order ONE of the following: *Sequential Compression Device (SCD) *Heparin 5000 units SQ BID 3-4 Higher Order ONE of the following medications: *Heparin 5000 units SQ TID *Enoxaparin/Lovenox 40 mg SQ daily (WT < 150 kg, CrCl > 30 mL/min) *Enoxaparin/Lovenox 30 mg SQ daily (WT < 150 kg, CrCl > 10-29 mL/min) *Enoxaparin/Lovenox 30 mg SQ BID (WT < 150 kg, CrCl > 30 mL/min) AND/OR *Sequential Compression Device (SCD) 5 or more Highest Order ONE of the following medications: *Heparin 5000 units SQ TID (Preferred with Epidurals) *Enoxaparin/Lovenox 40 mg SQ daily (WT < 150 kg, CrCl > 30 mL/min) *Enoxaparin/Lovenox 30 mg SQ daily (WT < 150 kg, CrCl > 10-29 mL/min) *Enoxaparin/Lovenox 30 mg SQ BID (WT < 150 kg, CrCl > 30 mL/min) AND *Sequential Compression Device (SCD) Assessment and Plan Assessment and Plan Neuro/Psych: Toxic metabolic Encephalopathy - likely infectious/CO2 retention Restless like syndrome Diabetic neuropathy Propofol/fentanyl drips for sedation/analgesia while intubated Goal of RA SS -2 Daily sedation vacation Check CT head Acetaminophen for fever Holding gabapentin 300 mg 3 a day in light of altered mental status CV: History of hypertension History dyslipidemia Currently hypotensive. Will give 3 L crystalloid stat now Check lactate Nik-Synephrine to maintain MAP greater than 65 Check CVP Home medications include lisinopril 5 mill grams daily, metoprolol 50 mill grams twice a day, clonidine 0.1 mg 3 times a day, nifedipine 60 mill grams every 12 hours, Imdur 30 mg daily and hydralazine 100 mg 3 times daily. All held EKG showed normal sinus rhythm. No acute ST-T changes. Troponin cycled. Echocardiogram 2016 EF 55-60%. No regional wall motion abnormality. LEXIE- 61 mmHg. Mild MR. Resp: Acute hypoxemic respiratory failure Severe COPD/O2 dependent HERACLIO/no CPAP at home PRVC 20/600/04/19/ Ventilator bundle Budesonide twice a day Albuterol/ipratropium every 4 hours with albuterol hours is every 2 hours when necessary Methylprednisolone 60 mg IV every 6 hours Follow-up ABG post intubation. At home Anoro Ellipta 62.5/25 one inhalation daily and Symbicort 160/4.5 2 puffs every 12 hours with as needed albuterol Chest x-ray revealed possible pulmonary edema with bilateral lower lobe infiltrate/atelectasis GI: Patient is currently nothing by mouth Famotidine for GI prophylaxis Docusate sodium/Senokot for bowel regimen : Bonilla will be placed for accurate I's and O's in a critically ill patient Endo: Diabetes mellitus with neuropathy Hyperglycemia At home on insulin detemir 10 units twice a day with sliding scale insulin. We'll start on lightening scale insulin with Accu-Cheks every 6 hours to maintain euglycemia/low regimen Renal: Acute kidney injury in the setting of Chronic kidney disease stage 4 Creatinine currently 5.1. Nephrology consultation Check urine eosinophils and electrolytes Renal ultrasound pending Monitor urine output Accurate I's and O's Noted LIZANDRO 1-80 last admission/speckled. Will need follow-up Heme: Normocytic anemia Leukocytosis Monitor CBC daily ID: Vancomycin. Piperacillin/tazobactam/Zithromax day #1. Zithromax for possible pulmonary coverage/atypical UA negative/, sputum, influenza and blood cultures 2 all ordered FEN: Hypocalcemia Hyponatremia Replace electrolytes as clinically indicated per ICU likely protocol 2 g calcium chloride 1 now Check phosphorus, PTH, vitamin D 1/25 and vitamin D 25 recheck amylase. MSK: PT evaluate and treat Access - Utilize peripheral IV. Central line if indicated Prophylaxis - GI - Protonix - DVT - SCD/heparin subcutaneous Critical Care: The total critical care time was 65 minutes. Time to perform other separately billable procedures was not included in the critical care time. Code Status Full code Discussed Condition With ED physician. Care plan discussed and all questions answered. Problem Qualifiers (1) Acute respiratory failure: Qualified Codes: J96.01 - Acute respiratory failure with hypoxia; J96.02 - Acute respiratory failure with hypercapnia (2) DM (diabetes mellitus): Qualified Codes: E13.9 - Other specified diabetes mellitus without complications (3) Acute renal failure: Qualified Codes: N17.9 - Acute kidney failure, unspecified Joseph Reilly MD Dec 14, 2016 15:51
[2016-12-14] MEDS ORDERED: MISCELLANEOUS NURSING INFORMATION XX SCH (16:00)
[2016-12-14] MEDS ORDERED: BISACODYL 10 MG SUPP RECTAL PRN (16:00)
[2016-12-14] MEDS ORDERED: SENNOSIDES 8.6 MG TAB PO PRN (16:00)
[2016-12-14] MEDS ORDERED: SODIUM CHLORIDE 0.9% FLUSH 10 ML FLUSH IV FLUSH PRN (16:00)
[2016-12-14] MEDS ORDERED: CHLORHEXIDINE GLUCONATE 2 % 1 PACK (2 CLOTHS) TOP PRN (16:00)
[2016-12-14] MEDS ORDERED: LACTULOSE SYRUP 20 GM/30 ML CUP PO PRN (16:00)
[2016-12-14] MEDS ORDERED: SODIUM CHLOR 0.9% 1000 ML INJ 1,000 ML IV SCH (16:00)
[2016-12-14] MEDS ORDERED: ACETAMINOPHEN 325 MG TAB PO PRN (16:00)
[2016-12-14] MEDS ORDERED: FUROSEMIDE 20 MG/2 ML VIAL IV PUSH ONE (16:00)
[2016-12-14] MEDS: MIDAZOLAM 100 MG/100 ML INJ 100 ML IV PRN (16:10)
[2016-12-14 16:19] LABS: BLOOD GAS CARBOXYHEMOGLOBIN 1.4 % (0-4); BLOOD GAS HCO3 19 mmol/L (22-26); BLOOD GAS METHEMOGLOBIN 0.9 % (0-2); BLOOD GAS O2 HGB SATURATION 91 % (90-100); BLOOD GAS OXYGEN CONTENT 12.3 Vol % (12.0-20.0); BLOOD GAS PCO2 49 mmHg (38-42); BLOOD GAS PO2 84 mmHG (61-120); BLOOD GAS TOTAL HGB 9.6 G/DL (12.0-16.0); CRITICAL VALUE YES; OXYGEN DEVICE VENTILATOR; TEMP CORR TO 98.6
--- NOTE | 2016-12-14 16:19 | RADRPT ---
EXAM DATE/TIME: 12/14/2016 16:00 [facility] COMPARISON: CHEST SINGLE AP, December 14, 2016, 14:20. INDICATIONS : Post intubation. MEDICAL HISTORY : Chronic obstructive pulmonary disease. Congestive heart failure. SURGICAL HISTORY : None. ENCOUNTER: Initial ACUITY: 1 day PAIN SCORE: Non-responsive. LOCATION: Bilateral chest FINDINGS: ETT is good position. The heart is enlarged with moderate interstitial edema present. Consolidation is present left base. The portion of the bony skeleton visualized is unremarkable. CONCLUSION: Moderate congestive failure, ET tube in good position. Sander Resendiz MD FACR on December 14, 2016 at 16:05 Board Certified Radiologist. This report was verified electronically.
[2016-12-14 16:20] LABS: DRAW SITE LT RADIAL; FIO2 100 %; NUMBER OF ARTERIAL PUNCTURES 1; STAT YES; ULNAR PULSE PRESENT; VENT SETTINGS PRVC/AC
[2016-12-14] MEDS: PROPOFOL 1000 MG/100 ML INJ 100 ML IV PRN (16:25)
[2016-12-14] MEDS ORDERED: SUCCINYLCHOLINE CHLORIDE 200 MG/10 ML VIAL IV PUSH ONE (16:45)
[2016-12-14] MEDS ORDERED: TERBUTALINE INJ 1 MG/ML AMP SQ PRN (16:45)
[2016-12-14] MEDS ORDERED: PHENYLEPHRINE INJ 160 MG in DEXTROSE 5% IN WATE 500 ML INJ 484 ML IV PRN ×2 (16:45)
[2016-12-14] MEDS ORDERED: ETOMIDATE 20 MG/10 ML VIAL IV PUSH ONE (16:45)
[2016-12-14] MEDS: RESP: ALBUTEROL 2.5 MG/IPRATROPIUM 0.5 MG NEB (SCH) INH ×3 (16:59→23:58)
[2016-12-14] MEDS ORDERED: CALCIUM CHLORIDE INJ 2 GM in SODIUM CHLORIDE 0.9% INJ 100 ML IV ONE (17:00)
--- NOTE | 2016-12-14 17:01 | PD.PROCEDR ---
Central Line Procedure REASON FOR PROCEDURE Central venous access PROCEDURE PERFORMED Central line placement: Left IJ CVL CONSENT Informed consent for procedure was not obtained and considered emergent secondary to hypotension. The risks and benefits of the procedure were discussed to include but limited to bleeding, clot formation, infection, and even . ANESTHESIA Local injection of 1% Lidocaine DESCRIPTION OF THE PROCEDURE The patient was placed in supine, mild Trendelenburg position. The area was exposed and cleansed with ChloraPrep, times two. Large sterile drape was used to cover the patient, with the site exposed, under sterile conditions including cap, face mask, sterile gown, and sterile gloves. On single attempt, the introducer needle was inserted with negative pressure in syringe and venous flash was obtained. The guide wire was then advanced without any restriction and the needle was removed. The dilator was used without any complications. Using Seldinger technique the volume and catheter was advanced over the guide wire to a depth of 20 centimeters. The guide wire was removed. All ports were aspirated with dark venous blood return and flushed easily with sterile saline. All ports were capped. Antibiotic disc was placed around central line at puncture site. The central line was secured to the skin with two interrupted 2.0 silk sutures. The area was bandaged with sterile see-through central line bandage. RADIOLOGICAL DATA Ultrasound guidance was used to locate left internal jugular vein. Doppler/ color flow was used to confirm venous flow. COMPLICATIONS: No apparent complications ESTIMATED BLOOD LOSS: Less than 1 cc. Joseph Reilly MD Dec 14, 2016 17:01
--- NOTE | 2016-12-14 17:10 | PD.CONS ---
[facility] Service Nephrology Consult Requested By Dr. Reilly Reason for Consult Acute on CKD Primary Care Physician Jn Castaneda M.D. History of Present Illness This is a 60 y/o female pt with whom we follow in outpatient setting. PMH of COPD, HTN, DM and hyperlipidemia, she also has CKD IV , due to diabetic nephropathy. Her baseline creatinine measures 1.9, GFR 28. She came in for shortness of breath for days. She was hypoxic on arrival and intubated for airway protection. She is on 100 % Fi02 and 95% oxygen saturations. She is currently having a bedside Echo performed. Her creatinine today is 5.1, BUN 69 , GFR 9, Na 129, Ca 5.0, AG 18. We were consulted for renal management. Her blood pressure has been low this admission. She is to have pressors started. A raphael was placed, minimal urine output. She was given lasix 20 mg IV in the ER . Her chest Xray shows congestion. (Tootie Grant) Review of Systems ROS Limitations: Intubated, Unresponsive (Tootie Grant) Past Family Social History Allergies: Coded Allergies: codeine (Unverified Adverse Reaction, Severe, 11/27/16) *MDRO Multi-Drug Resistant Organism (Verified Adverse Reaction, Unknown, ) MDR E. 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 Past Medical History CKD 4, Baseline creatinine 1.8, GFR 29, underlying nephrosclerosis COPD Rheumatoid arthritis HTN DM Restless leg syndrome Past Surgical History Hysterectomy Bilateral knee replacement Lumbar fusion Tonsillectomy Reported Medications Prednisone 20 Mg Tab 40 Mg PO DAILY Azithromycin 500 Mg Tab 500 Mg PO DAILY Ceftin (Cefuroxime Axetil) 500 Mg Tab 500 Mg PO Q12HR Reported Tramadol (Tramadol HCl) 50 Mg Tab 50 Mg PO TID PRN Atorvastatin (Atorvastatin Calcium) 20 Mg Tab 20 Mg PO HS Nifedipine ER 24 HR (Nifedipine) 60 Mg Tab 60 Mg PO BID Isosorbide Mononitrate ER (Isosorbide Mononitrate) 30 Mg Malick 30 Mg PO DAILY Gabapentin 300 Mg Cap 300 Mg PO TID Anoro Ellipta Inh (Umeclidinium/Vilanterol) 62.5-25 Mcg/Act Aero 1 Puff INH DAILY Multi Vitamin (Multiple Vitamin) 1 Tab Tab 1 Tab PO DAILY Vitamin B-12 Cr (Cyanocobalamin) 1,000 Mcg Tab 1,000 Mcg PO DAILY Metoprolol Tartrate 50 Mg Tab 50 Mg PO BID Lisinopril 5 Mg Tab 5 Mg PO DAILY Levemir Inj (Insulin Detemir) 1,000 unit/ 10 ML Vial 10 Units SQ BID Do not mix with any other Insulin. Novolog Inj (Insulin Aspart) 1,000 Unit/10 Ml Vial 0 SQ DIRECTED Sliding Scale as directed. Hydralazine (Hydralazine HCl) 100 Mg Tab 100 Mg PO Q8HR Take with meals Clonidine (Clonidine HCl) 0.1 Mg Tab 0.1 Mg PO Q8HR Caltrate 600+D (Calcium Carbonate-Cholecalciferol) 600-800 Mg-Unit Tab 1 Tab PO DAILY Symbicort Inh (Budesonide/Formoterol Fumarate) 160-4.5 Mcg/Act Aero 2 Puff INH Q12HR Albuterol Neb (Albuterol Sulfate) 2.5 Mg/0.5 Ml Neb 2.5 Mg NEB Q4HR NEB PRN Note: The Albuterol Sulfate Inhalation Solution is concentrated and must be diluted. Read complete instructions carefully before using. Aspirin 81 Mg Tabdr 81 Mg PO DAILY Active Ordered Medications Current Medications Medications (Trade) Dose Ordered Sig/Mathew Route Start Time Stop Time Status Last Admin (NS Flush) 2 ml UNSCH PRN IVF 12/14/16 14:15 Midazolam HCl 100 ml @ 2 mls/hr TITRATE PRN IV 12/14/16 15:45 12/14/16 16:10 Calcium Chloride 2 gm/Sodium Chloride 120 ml @ 120 mls/hr ONCE ONCE IV 12/14/16 17:00 12/14/16 17:59 Sodium Chloride 1,000 ml @ 84 mls/hr [id number] IV 12/14/16 16:00 (NS Flush) 2 ml UNSCH PRN IV FLUSH 12/14/16 16:00 (NS Flush) 2 ml BID IV FLUSH 12/14/16 21:00 (Tylenol) 650 mg Q6H PRN PO 12/14/16 16:00 (Pepcid Inj) 10 mg Q12HR IV PUSH 12/14/16 21:00 (Tears Naturale Opth Soln) 1 drop TID EACH EYE 12/14/16 18:00 (Zofran Inj) 4 mg Q6H PRN IV 12/14/16 16:00 (Duoneb Neb) 1 ampule Q4HR NEB INH 12/14/16 16:00 12/14/16 16:59 (Albuterol Neb) 2.5 mg Q2HR NEB PRN INH 12/14/16 16:00 (Heparin Inj) 5,000 units Q12H SQ 12/14/16 17:00 Miscellaneous Information 1 [id number] XX 12/14/16 16:00 (Chlorhexidine 2% Cloth) 3 pack Taper DAILY@04 TOP 12/15/16 04:00 12/11/17 03:59 (Chlorhexidine 2% Cloth) 3 pack UNSCH PRN TOP 12/14/16 16:00 (Alma-Colace) 1 tab BID PO 12/14/16 21:00 (Milk Of Magnesia Liq) 30 ml Q12H PRN PO 12/14/16 16:00 (Senokot) 17.2 mg Q12H PRN PO 12/14/16 16:00 (Dulcolax Supp) 10 mg DAILY PRN RECTAL 12/14/16 16:00 (Lactulose Liq) 30 ml DAILY PRN PO 12/14/16 16:00 (Peridex 0.12% Liq) 15 ml BID@08,20 MT 12/14/16 20:00 Propofol 100 ml @ 2.34 mls/hr TITRATE PRN IV 12/14/16 16:00 12/14/16 16:25 Fentanyl Citrate 250 ml @ 5 mls/hr TITRATE PRN IV 12/14/16 16:00 Phenylephrine HCl 160 mg/Dextrose 500 ml @ 7.5 mls/hr TITRATE PRN IV 12/14/16 16:45 UNV (Brethine Inj) 1 mg UNSCH PRN SQ 12/14/16 16:45 UNV (NS Flush) DAILY IVF 12/15/16 09:00 UNV (NS Flush) UNSCH PRN IVF 12/14/16 16:45 UNV Family History no hx of renal disorders Social History active smoker no ETOH or drug use lives locally with daughter independent 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 (Tootie Grant) Physical Exam Vital Signs Vital Signs Date Time Temp Pulse Resp B/P (MAP) Pulse Ox O2 Delivery O2 Flow Rate FiO2 12/14/16 16:30 60 18 94/55 (68) 94 Ventilator 60 12/14/16 15:19 58 16 102/56 (71) 93 Ventilator 75 12/14/16 15:16 65 25 108/58 (75) 91 12/14/16 15:15 75 12/14/16 15:14 74 25 99/57 (71) 90 12/14/16 15:00 63 30 108/57 (74) 86 BiPAP 60 12/14/16 14:30 60 28 95/50 (65) 97 BiPAP 60 12/14/16 14:12 84 BiPAP 100 12/14/16 14:10 87 100 12/14/16 14:09 54 BiPAP 100 12/14/16 14:08 75 BiPAP 100 12/14/16 14:05 59 42 94/50 (65) 77 Physical Exam Obese female, unresponsive on ventilator vent settings: 18/500/100/5 Lungs: course, rales throughout bilaterally CV: S1/S2, not tachycardic, no murmurs Abd: obese, soft, non tender Ext: no edema : raphael, oliguric skin: intact Laboratory Laboratory Tests Test 12/14/16 14:10 12/14/16 14:15 12/14/16 14:40 12/14/16 14:50 White Blood Count 12.1 Red Blood Count 3.43 Hemoglobin 9.8 Hematocrit 30.9 Mean Corpuscular Volume 90.1 Mean Corpuscular Hemoglobin 28.7 Mean Corpuscular Hemoglobin Concent 31.9 Red Cell Distribution Width 14.8 Platelet Count 273 Mean Platelet Volume 7.4 Neutrophils (%) (Auto) 89.5 Lymphocytes (%) (Auto) 4.5 Monocytes (%) (Auto) 5.8 Eosinophils (%) (Auto) 0.1 Basophils (%) (Auto) 0.1 Neutrophils # (Auto) 10.8 Lymphocytes # (Auto) 0.5 Monocytes # (Auto) 0.7 Eosinophils # (Auto) 0.0 Basophils # (Auto) 0.0 CBC Comment DIFF FINAL Differential Comment Prothrombin Time 12.2 Prothromb Time International Ratio 1.1 Activated Partial Thromboplast Time 29.3 Blood Urea Nitrogen 69 Creatinine 5.10 Random Glucose 170 Total Protein 7.3 Calcium Level LESS THAN 5.0 Magnesium Level 2.0 Sodium Level 129 Potassium Level 4.9 Chloride Level 89 Carbon Dioxide Level 22.4 Anion Gap 18 Estimat Glomerular Filtration Rate 9 Protein Corrected Calcium 5.0 Total Creatine Kinase 377 Creatine Kinase MB 3.1 Creatine Kinase MB % 0.8 Troponin I LESS THAN 0.02 B-Type Natriuretic Peptide 1279 Urine Color DARK-YELLOW Urine Turbidity HAZY Urine pH 5.5 Urine Specific [place] 1.018 Urine Protein 100 Urine Glucose (UA) NEG Urine Ketones NEG Urine Occult Blood NEG Urine Nitrite NEG Urine Bilirubin NEG Urine Urobilinogen 2.0 Urine Leukocyte Esterase NEG Urine RBC LESS THAN 1 Urine WBC 1 Urine Squamous Epithelial Cells 1 Microscopic Urinalysis Comment CULT NOT INDICATED Blood Gas Puncture Site RT RADIAL Blood Gas Patient Temperature 98.6 Blood Gas HCO3 20 Blood Gas Base Excess -5.8 Blood Gas Oxygen Saturation 94 Arterial Blood pH 7.25 Arterial Blood Partial Pressure CO2 48 Arterial Blood Partial Pressure O2 99 Arterial Blood Oxygen Content 14.7 Arterial Blood Carboxyhemoglobin 1.5 Arterial Blood Methemoglobin 0.9 Blood Gas Hemoglobin 11.0 Oxygen Delivery Device BIPAP Blood Gas Ventilator Setting EPAP 7/IPAP 15 Blood Gas Inspired Oxygen 100 Test 12/14/16 16:00 Blood Gas Puncture Site LT RADIAL Blood Gas Patient Temperature 98.6 Blood Gas HCO3 19 Blood Gas Base Excess -7.0 Blood Gas Oxygen Saturation 91 Arterial Blood pH 7.22 Arterial Blood Partial Pressure CO2 49 Arterial Blood Partial Pressure O2 84 Arterial Blood Oxygen Content 12.3 Arterial Blood Carboxyhemoglobin 1.4 Arterial Blood Methemoglobin 0.9 Blood Gas Hemoglobin 9.6 Oxygen Delivery Device VENTILATOR Blood Gas Ventilator Setting PRVC/AC Blood Gas Inspired Oxygen 100 (Tootie Grant) Result Diagram: 12/14/16 1410 12/14/16 1410 Imaging Last 72 hours Impressions Chest X-Ray 12/14/16 1548 Signed Impressions: Service Date/Time: Wednesday, December 14, 2016 16:00 - CONCLUSION: Moderate congestive failure, ET tube in good position. Sander Resendiz MD FACR Chest X-Ray 12/14/16 1406 Signed Impressions: Service Date/Time: Wednesday, December 14, 2016 14:20 - CONCLUSION: Cardiomegaly with interstitial pulmonary edema. Billy Quiroz Jr., MD (Tootie rGant) Assessment and Plan Problem List: (1) Acute renal failure ICD Codes: N17.9 - Acute kidney failure, unspecified Status: Acute Plan: baseline CKD 3-4, creatinine 1.8 KAILEE may be due to sepsis and decreased renal perfusion; may have progressed to ATN her K is normal, but has developed metabolic acidosis at this time her urine output is minimal CXR reviewed, congestive failure per report BNP elevated, echo in process she was given Lasix 20 IV ; start bumex 2 mg IV BID and monitor response stop IVF that are infusing follow urine output and renal function if she does not improve it is possible she may require hemodialysis soon repeat labs in AM avoid nephrotoxic medications use pressors if needed to maintain adequate MAP (2) HCAP (healthcare-associated pneumonia) ICD Codes: J18.9 - Healthcare-associated pneumonia Status: Acute Plan: ordered zosyn, zithromax, steroids continue ventilator support check lactic acid monitor clinically (3) Acute respiratory failure ICD Codes: J96.00 - Acute respiratory failure Status: Resolved Plan: s/p intubation , being treated for Pneumonia (4) DM (diabetes mellitus) ICD Codes: E11.9 - Type 2 diabetes mellitus without complications Status: Chronic Plan: continue insulin therapy goal 140-180 mg/dL (5) Hypocalcemia ICD Codes: E83.51 - Hypocalcemia Plan: check PTH, vitamin D levels begin replacement (Tootie Grant) Assessment and Plan patient was seen and examined. Acute on chronic kidney disease. Severe hypocalcemia is noted. Patient has been intubated. Stop IVF. Start diuresis. Patient is critically ill. Prognosis is guarded. May need dialysis. Above note reviewed, agree with assessment and plan. (Thomas Blackmon MD) Problem Qualifiers (1) Acute renal failure: Qualified Codes: N17.9 - Acute kidney failure, unspecified (2) Acute respiratory failure: Qualified Codes: J96.01 - Acute respiratory failure with hypoxia; J96.02 - Acute respiratory failure with hypercapnia (3) DM (diabetes mellitus): Qualified Codes: E13.9 - Other specified diabetes mellitus without complications Tootie Grant Dec 14, 2016 17:09 Thomas Blackmon MD Dec 14, 2016 18:23
[2016-12-14] MEDS ORDERED: Vancomycin Consult Pharmacy 1 EA OTHER SCH (17:15)
--- NOTE | 2016-12-14 17:43 | RADRPT ---
EXAM DATE/TIME: 12/14/2016 17:25 [facility] COMPARISON: CHEST SINGLE AP, December 14, 2016, 16:00. INDICATIONS : Evaluate for central line placement. MEDICAL HISTORY : Chronic obstructive pulmonary disease. Congestive heart failure. SURGICAL HISTORY : None. ENCOUNTER: Initial ACUITY: 1 day PAIN SCORE: Non-responsive. LOCATION: chest FINDINGS: Central line and ET tube in good position. The heart is enlarged with moderate associated edema. Mi nimal bibasilar parenchymal changes are noted. There is no pneumothorax. CONCLUSION: Line in good position without pneumothorax. Sander Resendiz MD FACR on December 14, 2016 at 17:41 Board Certified Radiologist. This report was verified electronically.
[2016-12-14] MEDS ORDERED: BUMETANIDE INJ 1 MG/4 ML VIAL IV PUSH ONE (17:45)
--- NOTE | 2016-12-14 17:52 | ECHRPT ---
Indication: assess lvf CONCLUSIONS The transthoracic study is normal by two-dimensional, color flow imaging and Doppler interrogation. BP: / HR: Rhythm: MEASUREMENTS (Male / Female) Normal Values Technical Quality: 2D ECHO LV Diastolic Diameter PLAX 4.3 cm 4.2 - 5.9 / 3.9 - 5.3 cm LV Systolic Diameter PLAX 2.9 cm IVS Diastolic Thickness 2.0 cm 0.6 - 1.0 / 0.6 - 0.9 cm LVPW Diastolic Thickness 1.2 cm 0.6 - 1.0 / 0.6 - 0.9 cm LV Relative Wall Thickness 0.7 RV Internal Dim ED PLAX 3.7 cm DOPPLER TR Peak Velocity 292.0 cm/s TR Peak Gradient 34.1 mmHg FINDINGS LEFT VENTRICLE The left ventricular systolic function is hyperdynamic with an estimated ejection fraction in the ra nge of 65- 70%. RIGHT VENTRICLE Normal right ventricular size and systolic function. LEFT ATRIUM The left atrial size is normal. RIGHT ATRIUM The right atrial size is normal. ATRIAL SEPTUM Normal atrial septal thickness without atrial level shunting by limited color doppler interrogation. AORTA The aortic root and proximal ascending aorta are normal in size on limited imaging. MITRAL VALVE Structurally normal mitral valve. No mitral valve stenosis or regurgitation. AORTIC VALVE Trileaflet aortic valve. No aortic valve stenosis or regurgitation. TRICUSPID VALVE Structurally normal tricuspid valve. No tricuspid valve stenosis or regurgitation. PULMONARY VALVE The pulmonary valve is not well visualized. VESSELS The inferior vena cava is normal in size. PERICARDIUM No pericardial effusion. Luci Arora MD, FACC (Electronically Signed) Final Date:14 December 2016 17:50
[2016-12-14] MEDS ORDERED: BUMETANIDE INJ 1 MG/4 ML VIAL IV PUSH SCH (18:00)
[2016-12-14] MEDS ORDERED: VANCOMYCIN INJ 1,250 MG in SODIUM CHLOR 0.9% 250 ML INJ 250 ML IV ONE (18:00)
--- NOTE | 2016-12-14 18:06 | RADRPT ---
EXAM DATE/TIME: 12/14/2016 17:38 [facility] COMPARISON: CT BRAIN W/O CONTRAST, June 29, 2016, 16:47. INDICATIONS : Altered mental status. RADIATION DOSE: 56.35 CTDIvol (mGy) MEDICAL HISTORY : Hypertension. Cardiovascular disease Chronic obstructive pulmonary disease. SURGICAL HISTORY : None. ENCOUNTER: Initial ACUITY: 1 day PAIN SCALE: Non-responsive LOCATION: cranial TECHNIQUE: Multiple contiguous axial images were obtained of the head. Using automated exposure control and adj ustment of the mA and/or kV according to patient size, radiation dose was kept as low as reasonably a chievable to obtain optimal diagnostic quality images. DICOM format image data is available electro nically for review and comparison. FINDINGS: CEREBRUM: The ventricles are normal for age. No evidence of midline shift, mass lesion, hemorrhage or acute in farction. No extra-axial fluid collections are seen. POSTERIOR FOSSA: The cerebellum and brainstem are intact. The 4th ventricle is midline. The cerebellopontine angle i s unremarkable. EXTRACRANIAL: The visualized portion of the orbits is intact. SKULL: The calvaria is intact. No evidence of skull fracture. CONCLUSION: Negative for an acute process. Sander Resendiz MD FACR on December 14, 2016 at 17:57 Board Certified Radiologist. This report was verified electronically.
[2016-12-14 18:51] LABS: BLOOD GAS BASE EXCESS -7.6 mmol/L (-2-2); BLOOD GAS CARBOXYHEMOGLOBIN 1.4 % (0-4); BLOOD GAS HCO3 19 mmol/L (22-26); BLOOD GAS METHEMOGLOBIN 1.5 % (0-2); BLOOD GAS O2 HGB SATURATION 90 % (90-100); BLOOD GAS PCO2 45 mmHg (38-42); BLOOD GAS PO2 83 mmHg (61-120); BLOOD GAS TOTAL HGB 9.4 G/DL (12.0-16.0); CRITICAL VALUE YES; OXYGEN DEVICE VENTILATOR; TEMP CORR TO 98.6
[2016-12-14 18:52] LABS: DRAW SITE RT RADIAL; FIO2 100 %; NUMBER OF ARTERIAL PUNCTURES 1; STAT NO; ULNAR PULSE PRESENT; VENT SETTINGS SEE COMMENTS
--- NOTE | 2016-12-14 19:40 | RADRPT ---
EXAM DATE/TIME: 12/14/2016 18:21 [facility] COMPARISON: US KIDNEY/RENAL/BLADDER, June 19, 2016, 14:14. INDICATIONS : Increased BUN/Creatnine. MEDICAL HISTORY : Myocardial infarction. Hypercholesterolemia. Hypertension. COPD. Dyspnea. Heartburn.Urinary retention . Renal disease. Kidney stones. Arthritis. Osteoporosis. Diabetes. Anxiety. Pneumonia. SURGICAL HISTORY : Hysterectomy. Lumbar fusion x2. Bilateral hip and knee replacement. ENCOUNTER: Subsequent ACUITY: 1 day PAIN SCORE: Nonresponsive. LOCATION: Bilateral flank MEASUREMENTS: RIGHT KIDNEY: 7.7 x 3.6 x 3.7 cm LEFT KIDNEY: 11.3 x 5.3 x 6.0 cm FINDINGS: RIGHT KIDNEY: The right kidney is small and echogenic. No mass or hydronephrosis is seen. LEFT KIDNEY: The left kidney is normal in size. It is mildly echogenic. No solid mass or hydronephrosis is seen. T here is a 1.6 cm cyst seen. BLADDER: The bladder is decompressed by a Bonilla catheter. CONCLUSION: Medical renal disease with echogenic kidneys. There is some atrophy of the right kidney. Nirav Camacho MD on December 14, 2016 at 19:37 Board Certified Radiologist. This report was verified electronically.
[2016-12-14] MEDS ORDERED: SODIUM BICARBONATE 8.4% INJ 150 MEQ in WATER STERILE FOR INJ 850 ML IV SCH (20:00)
[2016-12-14] MEDS ORDERED: SODIUM BICARBONATE 8.4% INJ 50 MEQ/50 ML SYR IV PUSH ONE (20:00)
[2016-12-14] MEDS: CHLORHEXIDINE 0.12% (ORAL KIT) 15 ML CUP MT SCH (20:00)
[2016-12-14] MEDS ORDERED: AZITHROMYCIN INJ 500 MG in SODIUM CHLOR 0.9% 250 ML INJ 250 ML IV SCH (20:00)
[2016-12-14] MEDS: BUMETANIDE INJ 1 MG/4 ML VIAL IV PUSH SCH (20:27)
[2016-12-14] MEDS: FAMOTIDINE 20 MG/2 ML VIAL IV PUSH SCH (20:27)
[2016-12-14] MEDS: PIPERACIL-TAZO 2.25 GM PREMIX 50 ML IV SCH (20:29)
[2016-12-14] MEDS: methylPREDNISolone SOD SUCC 40 MG/1 ML VIAL IV PUSH SCH (20:29)
[2016-12-14] MEDS: HEPARIN SODIUM - SQ 10,000 UNITS/ML VIAL SQ SCH (20:31)
[2016-12-14] MEDS: ARTIFICIAL TEARS OPTH SOLN 15 ML BTL EACH EYE SCH (20:31)
[2016-12-14] MEDS: CHLORHEXIDINE GLUCONATE 2 % 1 PACK (2 CLOTHS) TOP SCH (20:32)
[2016-12-14] MEDS: DOCUSATE SODIUM 50 MG/SENNA 8.6 MG TAB PO SCH (20:32)
[2016-12-14 21:12] LABS: AMYLASE 40 U/L (25-115)
[2016-12-14 21:17] LABS: INDIRECT BILIRUBIN 0.2 MG/DL (0.0-0.8); TOTAL BILIRUBIN ADULT 0.4 MG/DL (0.2-1.0)
[2016-12-14] MEDS: RESP: BUDESONIDE 0.5 MG/2 ML NEB NEB SCH (21:23)
[2016-12-14] MEDS: SODIUM CHLORIDE 0.9% FLUSH 10 ML FLUSH IV FLUSH SCH (23:09)
[2016-12-14] MEDS: EPOPROSTENOL NEB SOLUTION 50 NG/KG/MIN 100 ML NEB SCH ×2 (23:44)
[2016-12-15] VITALS (23 sets, daily range): BP systolic 109–170; BP diastolic 62–99; PULSE 49–75; RESP 19–24; TEMP 97.6–98; O2SAT 93–99
[2016-12-15] MEDS: methylPREDNISolone SOD SUCC 40 MG/1 ML VIAL IV PUSH SCH ×4 (00:56→17:24)
[2016-12-15] MEDS: PIPERACIL-TAZO 2.25 GM PREMIX 50 ML IV SCH ×3 (02:44→17:24)
[2016-12-15] MEDS: RESP: ALBUTEROL 2.5 MG/IPRATROPIUM 0.5 MG NEB (SCH) INH ×5 (03:28→19:42)
--- NOTE | 2016-12-15 05:17 | RADRPT ---
EXAM DATE/TIME: 12/15/2016 03:58 [facility] COMPARISON: CHEST SINGLE AP, December 14, 2016, 17:25. INDICATIONS : Post intubation MEDICAL HISTORY : Chronic obstructive pulmonary disease. Congestive heart failure. SURGICAL HISTORY : None. ENCOUNTER: Subsequent ACUITY: 2 days PAIN SCORE: Non-responsive. LOCATION: Bilateral chest FINDINGS: A single view of the chest demonstrates endotracheal tube in satisfactory position. NG enters stomach . Left central line in superior vena cava. Basilar airspace disease similar to December 14. Heart siz e enlarged. intact. CONCLUSION: 1. Support apparatus in good position. Bilateral airspace consolidation. Freddie Tubbs MD on December 15, 2016 at 5:15 Board Certified Radiologist. This report was verified electronically.
[2016-12-15 05:43] LABS: AUTOMATED NEUTROPHIL # 5.3 TH/MM3 (1.8-7.7); BASOPHIL % 0.1 % (0.0-2.0); HEMATOCRIT 25.9 % (35.0-46.0); HEMO FLAGS DIFF FINAL; LYMPH % 2.5 % (9.0-44.0); LYMPHOCYTE # 0.1 TH/MM3 (1.0-4.8); MEAN CELL VOLUME 88.6 FL (80.0-100.0); MEAN CORPUSCULAR HEMOGLOBIN 30.3 PG (27.0-34.0); MEAN CORPUSCULAR HGB CONC 34.2 % (32.0-36.0); NEUT % 96.4 % (16.0-70.0); PLATELET COUNT 199 TH/MM3 (150-450); RED BLOOD COUNT 2.92 MIL/MM3 (4.00-5.30); RED CELL DISTRIBUTION WIDTH 14.8 % (11.6-17.2); WHITE BLOOD COUNT 5.5 TH/MM3 (4.0-11.0)
[2016-12-15] MEDS: HEPARIN SODIUM - SQ 10,000 UNITS/ML VIAL SQ SCH ×2 (05:45→17:24)
[2016-12-15 05:46] LABS: APTT (PATIENT) 28.2 SEC (24.3-30.1); PROTHROMBIN TIME - PATIENT 11.1 SEC (9.8-11.6)
[2016-12-15] MEDS: MIDAZOLAM 100 MG/100 ML INJ 100 ML IV PRN ×2 (07:10→10:44)
[2016-12-15 07:12] LABS: BICARBONATE 24.2 MEQ/L (21.0-32.0); MAGNESIUM 2.1 MG/DL (1.5-2.5); POTASSIUM 3.7 MEQ/L (3.5-5.1); TOTAL BILIRUBIN ADULT 0.4 MG/DL (0.2-1.0)
[2016-12-15] MEDS: EPOPROSTENOL NEB SOLUTION 50 NG/KG/MIN 100 ML NEB SCH ×4 (07:43→14:00)
[2016-12-15] MEDS ORDERED: SODIUM CHLOR 0.9% 1000 ML INJ 1,000 ML IV ONE (08:00)
[2016-12-15] MEDS ORDERED: CALCIUM CHLORIDE INJ 2 GM in SODIUM CHLORIDE 0.9% INJ 100 ML IV ONE ×3 (08:00→18:00)
[2016-12-15] MEDS: RESP: BUDESONIDE 0.5 MG/2 ML NEB NEB SCH ×2 (08:03→19:42)
[2016-12-15] MEDS: CHLORHEXIDINE 0.12% (ORAL KIT) 15 ML CUP MT SCH ×2 (08:14→20:00)
--- NOTE | 2016-12-15 08:38 | HHI.CCPN ---
Subjective Remarks/Hospital Course 61-year-old female. Date of admission 12/14/2016. Past records includes COPD/oxygen dependent, obstructive sleep apnea not using nocturnal CPAP , hypertension, morbid obesity. Hypertension, chronic kidney disease stage IV. She presents to [facility] 2 day history of shortness of breath.. She is essentially in extremis 100 hour troponin emergency report. She is immediately placed on BiPAP however failed and was emergently endotracheally intubated. She required 100% FiO2 and was intermittently hypotensive the ED. CT head negative. Chest x-ray revealed possible vascular congestion. She is also noted of a calcium of 5.0. Elevated creatinine 5.1 with a baseline 1.9. she received 2 g calcium chloride and she received 20 mg IV Lasix. Equal Employment Opportunity Officer discontinued IV fluids and starting Bumex at 2 mg IV twice a day. 2-D echocardiogram revealed hyperdynamic state with EF of 65-70%. Subjective 12/15: - Afebrile. Off all vasopressors. 700 cc urine overnight. She is responding to fluids. Currently on midazolam drip. We'll attempt sedation vacation today if FiO2 decreased to around 50%. Objective Vital Signs Date Time Temp Pulse Resp B/P (MAP) Pulse Ox O2 Delivery O2 Flow Rate FiO2 12/15/16 08:06 99 70 12/15/16 07:00 53 24 157/77 (103) 12/15/16 04:00 98.0 12/14/16 18:00 Ventilator Intake and Output 12/15/16 12/15/16 12/15/16 07:59 15:59 23:59 Output Total 660 ml Balance -660 ml Result Diagram: 12/15/16 0505 12/15/16 0505 Other Results Microbiology Date/Time Source Procedure Growth Status 12/15/16 05:03 Blood Peripheral Aerobic Blood Culture Pending Received 12/15/16 05:03 Blood Peripheral Anaerobic Blood Culture Pending Received 12/14/16 17:35 Urine Catheterized Urine Legionella Antigen - Final PRESUMPTIVE NEGATIVE FOR LEGIONELLA P... Complete 12/14/16 17:35 Urine Catheterized Urine Streptococcus pneumoniae Antigen (M - Final PRESUMPTIVE NEGATIVE FOR STREPTOCOCCU... Complete Imaging Last Impressions Chest X-Ray 12/15/16 0000 Signed Impressions: Service Date/Time: Thursday, December 15, 2016 03:58 - CONCLUSION: 1. Support apparatus in good position. Bilateral airspace consolidation. Freddie Tubbs MD Renal Ultrasound 12/14/16 0000 Signed Impressions: Service Date/Time: Wednesday, December 14, 2016 18:21 - CONCLUSION: Medical renal disease with echogenic kidneys. There is some atrophy of the right kidney. Nirav Camacho MD Head CT 12/14/16 0000 Signed Impressions: Service Date/Time: Wednesday, December 14, 2016 17:38 - CONCLUSION: Negative for an acute process. Sander Resendiz MD FACR Objective Remarks GENERAL: 60-year-old female, critically ill orotracheally intubated SKIN: Warm and dry. No rash. HEAD: Atraumatic. Normocephalic. EYES: Pupils equal and round about 3 mm bilaterally and reactive. No scleral icterus. No injection or drainage. ENT: No nasal bleeding or discharge. Mucous membranes pink and moist. NECK: Trachea midline. No JVD. Left IJ is clean dry and intact CARDIOVASCULAR: Regular rate and rhythm. S1, S2 no S4. RESPIRATORY: Diminished breath sounds throughout. Symmetrical excursion. Breath sounds equal bilaterally. GASTROINTESTINAL: Abdomen soft, non-tender, protuberant. Active bowel sounds are appreciated MUSCULOSKELETAL: Extremities without significant peripheral edema. No obvious deformities. NEUROLOGICAL: Positive gag. Positive corneal reflex. Withdraws to pain in all 4 extremities.Positive Chvostek test by tapping on ipsilateral movement facial nerve. Urinary Catheter: Yes Assessment to: Continue Bonilla insert reason: ICU Pt Getting Diuretics Vascular Central Line Catheter: Yes Assessment to: Continue Date of Insertion: Dec 14, 2016 Line: Central Venous Catheter Side: Left Location: Internal, Jugular A/P Assessment and Plan Neuro/Psych: Toxic metabolic Encephalopathy - likely infectious/CO2 retention Restless like syndrome Diabetic neuropathy Versed drip at 6 mill grams an hour/as needed fentanyl drips for sedation/ analgesia while intubated Goal of RA SS -[address] brain 12/14 revealed no acute intracranial findings Acetaminophen for fever Holding gabapentin 300 mg 3 a day in light of altered mental status CV: History of hypertension History dyslipidemia Check lactate - within normal limits Nik-Synephrine currently off to maintain MAP greater than 65 Check CVP - 22 Home medications include lisinopril 5 mill grams daily, metoprolol 50 mill grams twice a day, clonidine 0.1 mg 3 times a day, nifedipine 60 mill grams every 12 hours, Imdur 30 mg daily and hydralazine 100 mg 3 times daily. All held in light of hypotension EKG showed normal sinus rhythm. No acute ST-T changes. Specifically no QT prolongation setting of hypocalcemia Troponin cycled. Currently get of Echocardiogram 2015 EF 55-60%. No regional wall motion abnormality. LEXIE- 61 mmHg. Mild MR. Echocardiogram 12/14/16 - EF 65-70%. No regional wall motion abnormality. Hyperdynamic state Resp: Acute hypoxemic respiratory failure Severe COPD/O2 dependent HERACLIO/no CPAP at home PRVC 20/550/0.9/5/70 Ventilator bundle Budesonide 0.5 mg/2 mL one inhalation twice a day Albuterol/ipratropium every 4 hours with albuterol hours is every 2 hours when necessary Methylprednisolone 60 mg IV every 6 hours Follow-up ABG post intubation. At home Anoro Ellipta 62.5/25 one inhalation daily and Symbicort 160/4.5 2 puffs every 12 hours with as needed albuterol Chest x-ray revealed possible pulmonary edema with bilateral lower lobe infiltrate/atelectasis Started on epoprostenol aerosols dosed at 50 ng/kg per minute. Will wean by 10 ng/kg per minute every 8 hours until off. GI: Elevated transaminases Patient is currently nothing by mouth We'll start Nepro goal 45 cc an hour Famotidine for GI prophylaxis Docusate sodium/Senokot for bowel regimen Avoid hepatotoxic medications Trending. Check CPK and hepatitis panel : Bonilla will be placed for accurate I's and O's in a critically ill patient Endo: Diabetes mellitus with neuropathy Hyperglycemia At home on insulin detemir 10 units twice a day with sliding scale insulin. We'll start on sliding scale insulin with Accu-Cheks every 6 hours to maintain euglycemia/high regimen Novulog Renal: Acute kidney injury in the setting of Chronic kidney disease stage 4 Creatinine currently 4.7. Nephrology consultation Check urine eosinophils negative and electrolytes FeNa 0.4 Renal ultrasound 12/14 indicative of medical renal disease Monitor urine output Accurate I's and O's Noted LIZANDRO 1-80 last admission/speckled. Will need follow-up Heme: Normocytic anemia Leukocytosis Monitor CBC daily ID: Vancomycin. Piperacillin/tazobactam/Zithromax day #2. Switch to levofloxacin day 1 for possible pulmonary coverage/atypical UA negative/, sputum, influenza and blood cultures 2 all ordered. Negative urine pneumococcal and Legionella antigens FEN: Hypocalcemia Hyponatremia Replace electrolytes as clinically indicated per ICU likely protocol 2 g calcium chloride 1 now Check phosphorus elevated 5.9, PTH elevated 705.7, vitamin D 1/25 pending and vitamin D 25 12.3 recheck amylase. Likely from underlying acute renal disease. MSK: PT evaluate and treat Access Left IJ CVL day #2 place 12/14 Prophylaxis - GI -famotidine - DVT - SCD/heparin subcutaneous Critical Care: The total critical care time was 35 minutes. Time to perform other separately billable procedures was not included in the critical care time. Joseph Reilly MD Dec 15, 2016 08:37
[2016-12-15] MEDS: ARTIFICIAL TEARS OPTH SOLN 15 ML BTL EACH EYE SCH ×3 (09:00→17:00)
[2016-12-15] MEDS ORDERED: GLUCAGON 1 MG/ML VIAL OTHER PRN (09:00)
[2016-12-15] MEDS: UMECLIDINIUM 62.5 MCG/VILANTEROL 25 MCG INHALER INH SCH (09:00)
[2016-12-15] MEDS: JUVEN POWDER 1 PACK G-TUBE SCH ×2 (09:00→21:00)
[2016-12-15] MEDS ORDERED: DEXTROSE 50% IN WATER 50 ML VIAL(D50) IV PRN (09:00)
[2016-12-15] MEDS: FAMOTIDINE 20 MG/2 ML VIAL IV PUSH SCH ×2 (09:07→21:50)
[2016-12-15] MEDS: SODIUM CHLORIDE 0.9% FLUSH 10 ML FLUSH IVF SCH (09:07)
[2016-12-15] MEDS: BUMETANIDE INJ 1 MG/4 ML VIAL IV PUSH SCH ×2 (09:07→17:24)
[2016-12-15] MEDS: SODIUM CHLORIDE 0.9% FLUSH 10 ML FLUSH IV FLUSH SCH ×2 (09:07→21:50)
[2016-12-15] MEDS: DOCUSATE SODIUM 50 MG/SENNA 8.6 MG TAB PO SCH ×2 (09:08→21:50)
[2016-12-15] MEDS: SODIUM CHLOR 0.9% 1000 ML INJ 1,000 ML IV SCH ×2 (09:55→21:49)
[2016-12-15] MEDS: LEVOFLOXACIN 500 MG PREMIX INJ 100 ML IV SCH (09:55)
--- NOTE | 2016-12-15 09:57 | EKG ---
Date Performed: 12/14/2016 Time Performed: 14:14:54 PTAGE: 61 years EKG: SINUS BRADYCARDIA POSSIBLE LEFT ATRIAL ENLARGEMENT PROLONGED QT INTERVAL ABNORMAL ECG PREVIOUS TRACING : 06/29/2016 14.07 DOCTOR: Sam Schwab Interpretating Date/Time 12/15/2016 09:55:47
[2016-12-15] MEDS ORDERED: CLEVIDIPINE INJ 50 ML IV PRN (10:30)
[2016-12-15] MEDS: NITROGLYCERIN 2% OINT 1 GM PACKET TOPICAL PRN (10:40)
[2016-12-15] MEDS: hydrALAZINE HCL 20 MG/ML VIAL IV PUSH PRN (10:40)
[2016-12-15] MEDS: fentaNYL DRIP 250 ML IV PRN (10:41)
[2016-12-15] MEDS: INSULIN ASPART SUPPLEMENTAL SCALE SQ SCH ×3 (11:17→20:00)
[2016-12-15 12:50] LABS: BLOOD GAS VENOUS HCO3 23 mmol/L (22-26); BLOOD GAS VENOUS O2 CONTENT 9.3 Vol % (9.0-17.0); BLOOD GAS VENOUS O2 HGB SAT 73 % (70-76); BLOOD GAS VENOUS PCO2 49 mmHg (44-48); BLOOD GAS VENOUS PO2 49 mmHg (35-40); CRITICAL VALUE YES; OXYGEN DEVICE VENTILATOR; TEMP CORR TO 98.6
[2016-12-15 12:51] LABS: FIO2 70 %
[2016-12-15 12:52] LABS: STAT NO
[2016-12-15 12:53] LABS: DRAW SITE R ARM
--- NOTE | 2016-12-15 13:33 | HHI.NPPN ---
Subjective History of Present Illness 60 y/o female pt with whom we follow in outpatient setting. PMH of COPD, HTN, DM and hyperlipidemia, she also has CKD IV , due to diabetic nephropathy. Her baseline creatinine measures 1.9, GFR 28. She came in for shortness of breath for days. She was hypoxic on arrival and intubated for airway protection. Additional Remarks Patient remain on the vent. and sedated. Objective Data Data 12/15/16 12/16/16 19:00 07:00 Intake Total 2270 ml Output Total 780 ml Balance 1490 ml Intake IV Total 2270 ml Output Urine Total 780 ml Vital Signs Date Time Temp Pulse Resp B/P (MAP) Pulse Ox O2 Delivery O2 Flow Rate FiO2 12/15/16 12:00 97.9 52 20 154/79 (104) 96 12/15/16 12:00 52 12/15/16 11:47 97 70 12/15/16 10:00 59 12/15/16 08:06 99 70 12/15/16 08:00 97.6 59 22 109/99 (102) 99 12/15/16 08:00 59 12/15/16 07:00 53 24 157/77 (103) 99 12/15/16 06:00 49 12/15/16 06:00 49 24 170/80 (110) 99 12/15/16 05:00 53 24 152/80 (104) 99 12/15/16 04:20 99 100 12/15/16 04:00 98.0 57 24 157/74 (101) 98 12/15/16 04:00 57 12/15/16 03:00 59 24 147/78 (101) 99 12/15/16 02:00 75 12/15/16 02:00 75 24 120/62 (81) 96 12/15/16 01:11 99 100 12/15/16 01:00 72 24 149/71 (97) 93 12/15/16 00:00 66 12/15/16 00:00 97.7 66 24 160/78 (105) 99 12/14/16 23:00 59 24 115/61 (79) 97 12/14/16 22:00 60 24 111/60 (77) 97 12/14/16 22:00 60 12/14/16 21:00 61 24 121/65 (83) 97 12/14/16 20:52 98 100 12/14/16 20:00 59 12/14/16 20:00 97.8 59 24 115/60 (78) 96 12/14/16 19:00 60 24 112/56 (74) 93 12/14/16 18:15 12/14/16 18:01 100 100 12/14/16 18:00 92 18 104/58 (73) 98 Ventilator 12/14/16 17:15 60 18 100/59 (73) 95 Ventilator 60 12/14/16 16:30 60 18 94/55 (68) 94 Ventilator 60 12/14/16 16:15 94 100 12/14/16 15:30 90 100 12/14/16 15:19 58 16 102/56 (71) 93 Ventilator 75 12/14/16 15:16 65 25 108/58 (75) 91 12/14/16 15:15 75 12/14/16 15:14 74 25 99/57 (71) 90 12/14/16 15:00 63 30 108/57 (74) 86 BiPAP 60 12/14/16 14:30 60 28 95/50 (65) 97 BiPAP 60 12/14/16 14:12 84 BiPAP 100 12/14/16 14:10 87 100 12/14/16 14:09 54 BiPAP 100 12/14/16 14:08 75 BiPAP 100 12/14/16 14:05 59 42 94/50 (65) 77 -: 12/15/16 0505 12/15/16 0505 Microbiology 12/15/16 Aerobic Blood Culture, Received Pending 12/15/16 Anaerobic Blood Culture, Received Pending 12/14/16 Aerobic Blood Culture - Preliminary, Resulted NO GROWTH IN 1 DAY 12/14/16 Anaerobic Blood Culture - Preliminary, Resulted NO GROWTH IN 1 DAY 12/14/16 Legionella Antigen - Final, Complete PRESUMPTIVE NEGATIVE FOR LEGIONELLA P... 12/14/16 Streptococcus pneumoniae Antigen (M - Final, Complete PRESUMPTIVE NEGATIVE FOR STREPTOCOCCU... Physical Exam General Appearance Remarks Intubated and sedated. Eyes Eye Exam: Pupils Equal Neck Neck Exam: Neck Supple Pulmonary Resp Exam: Breath Sounds Equal, No Distress, Rhonchi, Decreased Bases, Diminished Breath Sounds, Poor Inspiratory Effort Cardiology CV Exam: Regular, Normal Sinus Rhythm Gastrointestinal/Abdomen GI Exam: Soft, Non-Tender, Distended Extremeties Extremities Exam: Moderate Edema, Pitting Edema Neurologic Neuro Exam: Sedated Assessment/Plan Problem List: (1) Acute renal failure ICD Codes: N17.9 - Acute kidney failure, unspecified Status: Acute Plan: baseline CKD 3-4, creatinine 1.8 KAILEE may be due to sepsis and decreased renal perfusion; may have progressed to ATN her K is normal, but has developed metabolic acidosis at this time her urine output is minimal CXR reviewed, congestive failure per report BNP elevated, echo in process she was given Lasix 20 IV ; start bumex 2 mg IV BID and monitor response stop IVF that are infusing follow urine output and renal function if she does not improve it is possible she may require hemodialysis soon avoid nephrotoxic medications Creatinine remain same, non oliguric. No urgent need for HD. (2) HCAP (healthcare-associated pneumonia) ICD Codes: J18.9 - Healthcare-associated pneumonia Status: Acute Plan: ordered zosyn, zithromax, steroids continue ventilator support check lactic acid monitor clinically (3) Acute respiratory failure ICD Codes: J96.00 - Acute respiratory failure Status: Resolved Plan: s/p intubation , being treated for Pneumonia (4) DM (diabetes mellitus) ICD Codes: E11.9 - Type 2 diabetes mellitus without complications Status: Chronic Plan: continue insulin therapy goal 140-180 mg/dL (5) Hypocalcemia ICD Codes: E83.51 - Hypocalcemia Plan: check PTH, vitamin D levels begin replacement Problem Qualifiers (1) Acute renal failure: Qualified Codes: N17.9 - Acute kidney failure, unspecified (2) Acute respiratory failure: Qualified Codes: J96.01 - Acute respiratory failure with hypoxia; J96.02 - Acute respiratory failure with hypercapnia (3) DM (diabetes mellitus): Qualified Codes: E13.9 - Other specified diabetes mellitus without complications Thomas Hines MD Dec 15, 2016 13:33
[2016-12-15] MEDS: ISOSORBIDE DINITRATE 10 MG TAB PO SCH ×2 (13:39→21:50)
[2016-12-15] MEDS: hydrALAZINE HCL 100 MG TAB PO SCH ×2 (13:39→21:50)
[2016-12-15] MEDS ORDERED: EPOPROSTENOL NEB SOLUTION 40 NG/KG/MIN 100 ML NEB ONE ×2 (16:00)
[2016-12-15 17:08] LABS: POTASSIUM 3.9 MEQ/L (3.5-5.1); URIC ACID 10.1 MG/DL (2.6-6.0)
[2016-12-15 17:44] LABS: CALCIUM-PROTEIN CORRECTED 6.7 MG/DL (8.5-10.1)
[2016-12-15] MEDS ORDERED: AZITHROMYCIN INJ 250 MG in SODIUM CHLOR 0.9% 250 ML INJ 250 ML IV SCH (20:00)
[2016-12-16] VITALS (19 sets, daily range): BP systolic 129–174; BP diastolic 65–95; PULSE 61–104; RESP 22–23; TEMP 97.6–99.2; O2SAT 91–100
[2016-12-16] MEDS ORDERED: EPOPROSTENOL NEB SOLUTION 30 NG/KG/MIN 100 ML NEB ONE ×2
[2016-12-16] MEDS: RESP: ALBUTEROL 2.5 MG/IPRATROPIUM 0.5 MG NEB (SCH) INH ×6 (00:12→20:24)
[2016-12-16] MEDS: methylPREDNISolone SOD SUCC 40 MG/1 ML VIAL IV PUSH SCH ×5 (01:18→23:58)
[2016-12-16] MEDS: PIPERACIL-TAZO 2.25 GM PREMIX 50 ML IV SCH ×3 (01:18→17:45)
[2016-12-16] MEDS: fentaNYL DRIP 250 ML IV PRN ×2 (02:23→16:53)
[2016-12-16] MEDS: INSULIN ASPART SUPPLEMENTAL SCALE SQ SCH ×7 (04:00→23:59)
[2016-12-16] MEDS: CHLORHEXIDINE GLUCONATE 2 % 1 PACK (2 CLOTHS) TOP SCH (04:00)
[2016-12-16] MEDS: ISOSORBIDE DINITRATE 10 MG TAB PO SCH ×3 (04:49→20:35)
[2016-12-16] MEDS: hydrALAZINE HCL 100 MG TAB PO SCH ×3 (04:50→20:35)
[2016-12-16] MEDS: HEPARIN SODIUM - SQ 10,000 UNITS/ML VIAL SQ SCH ×2 (04:51→16:01)
[2016-12-16] MEDS: hydrALAZINE HCL 20 MG/ML VIAL IV PUSH PRN ×5 (06:05→23:58)
[2016-12-16 06:15] LABS: AUTOMATED NEUTROPHIL # 6.6 TH/MM3 (1.8-7.7); BASOPHIL % 0.1 % (0.0-2.0); HEMATOCRIT 26.8 % (35.0-46.0); HEMO FLAGS DIFF FINAL; LYMPH % 2.2 % (9.0-44.0); LYMPHOCYTE # 0.2 TH/MM3 (1.0-4.8); MEAN CELL VOLUME 90.3 FL (80.0-100.0); MEAN CORPUSCULAR HEMOGLOBIN 29.3 PG (27.0-34.0); MEAN CORPUSCULAR HGB CONC 32.5 % (32.0-36.0); MONO % 3.2 % (0.0-8.0); NEUT % 94.5 % (16.0-70.0); PLATELET COUNT 235 TH/MM3 (150-450); RED BLOOD COUNT 2.97 MIL/MM3 (4.00-5.30); RED CELL DISTRIBUTION WIDTH 14.5 % (11.6-17.2)
[2016-12-16 06:39] LABS: BICARBONATE 23.4 MEQ/L (21.0-32.0); MAGNESIUM 2.1 MG/DL (1.5-2.5); POTASSIUM 3.9 MEQ/L (3.5-5.1)
[2016-12-16 06:59] LABS: CALCIUM-PROTEIN CORRECTED 7.6 MG/DL (8.5-10.1); TOTAL BILIRUBIN ADULT 0.3 MG/DL (0.2-1.0)
--- NOTE | 2016-12-16 07:26 | HHI.CCPN ---
Subjective Remarks/Hospital Course 61-year-old female. Date of admission 12/14/2016. Past records includes COPD/oxygen dependent, obstructive sleep apnea not using nocturnal CPAP , hypertension, morbid obesity. Hypertension, chronic kidney disease stage IV. She presents to [facility] 2 day history of shortness of breath.. She is essentially in extremis 100 hour troponin emergency report. She is immediately placed on BiPAP however failed and was emergently endotracheally intubated. She required 100% FiO2 and was intermittently hypotensive the ED. CT head negative. Chest x-ray revealed possible vascular congestion. She is also noted of a calcium of 5.0. Elevated creatinine 5.1 with a baseline 1.9. she received 2 g calcium chloride and she received 20 mg IV Lasix. Typesetting Machine Tender discontinued IV fluids and starting Bumex at 2 mg IV twice a day. 2-D echocardiogram revealed hyperdynamic state with EF of 65-70%. 12/15: - Afebrile. Off all vasopressors. 700 cc urine overnight. She is responding to fluids. Currently on midazolam drip. We'll attempt sedation vacation today if FiO2 decreased to around 50%. Subjective 12/16: Afebrile. Off all vasopressors. 1300 cc urine output past 24 hours. Nonoliguric. Currently on mid as lemon fentanyl drips. Moving all 4 extremities spontaneous. Will briefly attempt sedation vacation day but resedate BRIANA. Objective Vital Signs Date Time Temp Pulse Resp B/P (MAP) Pulse Ox O2 Delivery O2 Flow Rate FiO2 12/16/16 06:00 164/73 (103) 12/16/16 04:09 97 45 12/16/16 04:00 98.8 72 22 12/14/16 18:00 Ventilator Intake and Output 12/16/16 12/16/16 12/17/16 08:00 16:00 00:00 Intake Total 486 ml Output Total 175 ml Balance 311 ml Result Diagram: 12/16/1630 12/16/1630 Other Results Microbiology Date/Time Source Procedure Growth Status 12/15/16 05:03 Blood Peripheral Aerobic Blood Culture Pending Received 12/15/16 05:03 Blood Peripheral Anaerobic Blood Culture Pending Received 12/14/16 17:35 Urine Catheterized Urine Legionella Antigen - Final PRESUMPTIVE NEGATIVE FOR LEGIONELLA P... Complete 12/14/16 17:35 Urine Catheterized Urine Streptococcus pneumoniae Antigen (M - Final PRESUMPTIVE NEGATIVE FOR STREPTOCOCCU... Complete Imaging Last Impressions Chest X-Ray 12/15/16 0000 Signed Impressions: Service Date/Time: Thursday, December 15, 2016 03:58 - CONCLUSION: 1. Support apparatus in good position. Bilateral airspace consolidation. Freddie Tubbs MD Renal Ultrasound 12/14/16 0000 Signed Impressions: Service Date/Time: Wednesday, December 14, 2016 18:21 - CONCLUSION: Medical renal disease with echogenic kidneys. There is some atrophy of the right kidney. Nirav Camacho MD Head CT 12/14/16 0000 Signed Impressions: Service Date/Time: Wednesday, December 14, 2016 17:38 - CONCLUSION: Negative for an acute process. Sander Resendiz MD FACR Objective Remarks GENERAL: 60-year-old female, critically ill orotracheally intubated SKIN: Warm and dry. No rash. Poor skin turgor. HEAD: Atraumatic. Normocephalic. EYES: Pupils equal and round about 3 mm bilaterally and reactive. No scleral icterus. No injection or drainage. ENT: No nasal bleeding or discharge. Mucous membranes pink and moist. NECK: Trachea midline. No JVD. Left IJ is clean dry and intact CARDIOVASCULAR: Regular rate and rhythm. S1, S2 no S4. RESPIRATORY: Diminished breath sounds throughout. Symmetrical excursion. Breath sounds equal bilaterally. GASTROINTESTINAL: Abdomen soft, non-tender, protuberant. Active bowel sounds are appreciated MUSCULOSKELETAL: Extremities without significant peripheral edema. No obvious deformities. NEUROLOGICAL: Positive gag. Positive corneal reflex. Withdraws to pain in all 4 extremities.. Moving all 4 extremities spontaneously but not to command Urinary Catheter: Yes Assessment to: Continue Bonilla insert reason: Prolonged Immobilization Vascular Central Line Catheter: Yes Assessment to: Continue Date of Insertion: Dec 14, 2016 Line: Central Venous Catheter Side: Left Location: Internal, Jugular A/P Assessment and Plan Neuro/Psych: Toxic metabolic Encephalopathy - likely infectious/CO2 retention Restless like syndrome Diabetic neuropathy Versed drip at 3 mill grams an hour/150 mg/h fentanyl drips for sedation/ analgesia while intubated Goal of RA SS -2 Daily sedation vacation to start today CT brain 12/14 revealed no acute intracranial findings Acetaminophen for fever Holding gabapentin 300 mg 3 times a day in light of altered mental status CV: History of hypertension History dyslipidemia Check lactate - within normal limits Nik-Synephrine currently off to maintain MAP greater than 65 Check CVP - 22 Home medications include lisinopril 5 mill grams daily, metoprolol 50 mill grams twice a day, clonidine 0.1 mg 3 times a day, nifedipine 60 mill grams every 12 hours, Imdur 30 mg daily and hydralazine 100 mg 3 times daily. Currently in hydralazine 100 3 times a day,Isordil mill grams 3 times a day. Started Procardia at 10 mg every 8 hours and clonidine several milligram twice a day. As needed hydralazine/Nitropaste/Cleviprex EKG showed normal sinus rhythm. No acute ST-T changes. Specifically no QT prolongation setting of hypocalcemia Troponin cycled. Echocardiogram 2015 EF 55-60%. No regional wall motion abnormality. LEXIE- 61 mmHg. Mild MR. Echocardiogram 12/14/16 - EF 65-70%. No regional wall motion abnormality. Hyperdynamic state Resp: Acute hypoxemic respiratory failure Severe COPD/O2 dependent HERACLIO/no CPAP at home PRVC 20/550/0.9/5/45 Ventilator bundle Budesonide 0.5 mg/2 mL one inhalation twice a day Albuterol/ipratropium every 4 hours with albuterol hours is every 2 hours when necessary Goal keep SPO2 around 92 Methylprednisolone 60 mg IV every 6 hours Follow-up ABG today At home Anoro Ellipta 62.5/25 one inhalation daily and Symbicort 160/4.5 2 puffs every 12 hours with as needed albuterol Chest x-ray revealed possible pulmonary edema with bilateral lower lobe infiltrate/atelectasis Started on epoprostenol aerosols 12/14 dosed at 50 ng/kg per minute. Will wean by 10 ng/kg per minute every 8 hours until off. Currently at 30 ng/kg per minute GI: Elevated transaminases We'll start Nepro goal 45 cc an hour. Currently at 25 cc an hour Famotidine for GI prophylaxis Docusate sodium/Senokot for bowel regimen. Add MiraLAX and lactulose today Avoid hepatotoxic medications Trending downward. Check CPK and hepatitis panel - negative : Bonilla will be placed for accurate I's and O's in a critically ill patient Endo: Diabetes mellitus with neuropathy Hyperglycemia At home on insulin detemir 10 units twice a day with sliding scale insulin. We'll start on sliding scale insulin with Accu-Cheks every 6 hours to maintain euglycemia/high regimen Novulog Renal: Acute kidney injury in the setting of Chronic kidney disease stage 4 - AIN versus medication Creatinine currently 5.0. Nephrology consultation Check urine eosinophils - 0-2 and electrolytes FeNa 0.4 Renal ultrasound 12/14 indicative of medical renal disease with atrophied right kidney Monitor urine output Accurate I's and O's Noted LIZANDRO 1-80 last admission/speckled. Will need follow-up Heme: Normocytic anemia Monitor CBC daily ID: Vancomycin. Piperacillin/tazobactam day #3. Switch to levofloxacin day 2 for possible pulmonary coverage/atypical. Previously on azithromycin UA negative/, sputum, influenza and blood cultures 2 all ordered. Blood cultures 12/14 and 12/15 still pending.. Negative urine pneumococcal and Legionella antigens FEN: Hypocalcemia Hyponatremia Hyperphosphatemia Replace electrolytes as clinically indicated per ICU likely protocol Check phosphorus elevated 5.9, PTH elevated 705.7, vitamin D 25 pending and vitamin D 25 12.3 recheck amylase. Likely from underlying acute renal disease. MSK: PT evaluate and treat Access Left IJ CVL day #3 place 12/14 Prophylaxis - GI -famotidine - DVT - SCD/heparin subcutaneous Critical Care: The total critical care time was 35 minutes. Time to perform other separately billable procedures was not included in the critical care time. Joseph Reilly MD Dec 16, 2016 07:26
--- NOTE | 2016-12-16 07:41 | RADRPT ---
EXAM DATE/TIME: 12/16/2016 07:18 [facility] COMPARISON: CHEST SINGLE AP, December 15, 2016, 3:58. INDICATIONS : Respiratory failure MEDICAL HISTORY : Chronic obstructive pulmonary disease. Congestive heart failure. SURGICAL HISTORY : Fusion, lumbar. ENCOUNTER: Subsequent ACUITY: 3 days PAIN SCORE: Non-responsive. LOCATION: Bilateral chest FINDINGS: Cardiomegaly, patchy bilateral lower lobe air space disease identified. A left jugular central venous catheter is noted and the tip overlies expected location of the SVC as before. Endotracheal tube tip at the inferior margin of the clavicles. Enteric tube courses beneath the diaphragm. Small right eff usion suspected. CONCLUSION: No significant change has occurred. Kenny Nails MD on December 16, 2016 at 7:39 Board Certified Radiologist. This report was verified electronically.
[2016-12-16] MEDS ORDERED: EPOPROSTENOL NEB SOLUTION 20 NG/KG/MIN 100 ML NEB ONE ×2 (08:00)
[2016-12-16] MEDS: RESP: BUDESONIDE 0.5 MG/2 ML NEB NEB SCH ×2 (08:00→20:24)
[2016-12-16] MEDS: ARTIFICIAL TEARS OPTH SOLN 15 ML BTL EACH EYE SCH ×3 (08:05→17:42)
[2016-12-16] MEDS: UMECLIDINIUM 62.5 MCG/VILANTEROL 25 MCG INHALER INH SCH (08:05)
[2016-12-16] MEDS ORDERED: MINERAL OIL LIQUID 30 ML CUP NG ONE (08:15)
[2016-12-16] MEDS: BUMETANIDE INJ 1 MG/4 ML VIAL IV PUSH SCH ×2 (08:24→17:43)
[2016-12-16] MEDS: SODIUM CHLORIDE 0.9% FLUSH 10 ML FLUSH IVF SCH (08:24)
[2016-12-16] MEDS: SODIUM CHLORIDE 0.9% FLUSH 10 ML FLUSH IV FLUSH SCH ×2 (08:24→20:34)
[2016-12-16] MEDS: LACTULOSE SYRUP 20 GM/30 ML CUP OG-TUBE SCH ×2 (08:25→20:35)
[2016-12-16] MEDS: POLYETHYLENE GLYCOL 17 GM PKG OG-TUBE SCH ×2 (08:25→20:35)
[2016-12-16] MEDS: cloNIDine HCL 0.1 MG TAB PO SCH ×2 (08:25→20:35)
[2016-12-16] MEDS: DOCUSATE SODIUM 50 MG/SENNA 8.6 MG TAB PO SCH ×2 (08:25→20:35)
[2016-12-16] MEDS: FAMOTIDINE 20 MG/2 ML VIAL IV PUSH SCH ×2 (08:25→20:34)
[2016-12-16] MEDS: CHLORHEXIDINE 0.12% (ORAL KIT) 15 ML CUP MT SCH (08:26)
[2016-12-16] MEDS: JUVEN POWDER 1 PACK G-TUBE SCH ×2 (08:27→20:34)
[2016-12-16 09:26] LABS: BLOOD GAS BASE EXCESS -4.2 mmol/L (-2-2); BLOOD GAS CARBOXYHEMOGLOBIN 1.3 % (0-4); BLOOD GAS HCO3 22 mmol/L (22-26); BLOOD GAS METHEMOGLOBIN 1.4 % (0-2); BLOOD GAS O2 HGB SATURATION 93 % (90-100); BLOOD GAS OXYGEN CONTENT 11.8 Vol % (12.0-20.0); BLOOD GAS PCO2 48 mmHg (38-42); BLOOD GAS PO2 89 mmHg (61-120); TEMP CORR TO 98.6
[2016-12-16 09:27] LABS: CRITICAL VALUE YES; OXYGEN DEVICE VENTILATOR
[2016-12-16 09:28] LABS: DRAW SITE RT RADIAL; FIO2 45 %; NUMBER OF ARTERIAL PUNCTURES 1; STAT NO; ULNAR PULSE PRESENT; VENT SETTINGS PRVC/AC
[2016-12-16] MEDS ORDERED: VANCOMYCIN INJ 1,250 MG in SODIUM CHLOR 0.9% 250 ML INJ 250 ML IV ONE (11:00)
[2016-12-16] MEDS ORDERED: NIFEdipine 10 MG CAP PO SCH (14:00)
--- NOTE | 2016-12-16 14:55 | HHI.NPPN ---
Subjective History of Present Illness 60 y/o female pt with whom we follow in outpatient setting. PMH of COPD, HTN, DM and hyperlipidemia, she also has CKD IV , due to diabetic nephropathy. Her baseline creatinine measures 1.9, GFR 28. She came in for shortness of breath for days. She was hypoxic on arrival and intubated for airway protection. Additional Remarks Patient remain on the vent. and sedated, clinically same. Objective Data Data 12/16/16 12/17/16 19:00 07:00 Intake Total 1120.5 ml Output Total 141 ml Balance 979.5 ml Intake IV Total 1120.5 ml Output Urine Total 141 ml Vital Signs Date Time Temp Pulse Resp B/P (MAP) Pulse Ox O2 Delivery O2 Flow Rate FiO2 12/16/16 14:00 68 12/16/16 14:00 68 129/65 (86) 148/65 (92) 12/16/16 12:02 100 55 12/16/16 12:00 163/78 (106) 12/16/16 12:00 55 12/16/16 12:00 76 12/16/16 12:00 99.2 78 23 163/78 (106) 94 12/16/16 10:00 104 12/16/16 09:45 55 12/16/16 09:05 50 12/16/16 08:00 99.1 73 22 153/71 (98) 92 12/16/16 08:00 73 12/16/16 08:00 45 12/16/16 07:58 99 45 12/16/16 06:00 164/73 (103) 12/16/16 06:00 97 12/16/16 04:09 97 45 12/16/16 04:00 98.8 72 22 159/75 (103) 93 12/16/16 04:00 72 12/16/16 04:00 50 12/16/16 02:00 72 12/16/16 01:05 95 50 12/16/16 00:00 99.0 61 23 160/72 (101) 95 12/16/16 00:00 50 12/16/16 00:00 61 12/16/16 00:00 160/72 (101) 12/15/16 22:02 94 55 12/15/16 22:00 60 12/15/16 20:00 65 12/15/16 20:00 54 12/15/16 20:00 98.0 54 19 155/74 (101) 96 12/15/16 19:37 96 60 12/15/16 18:00 50 12/15/16 16:12 96 65 12/15/16 16:00 70 12/15/16 16:00 97.8 61 20 140/68 (92) 96 12/15/16 16:00 61 -: 12/16/16 0530 12/16/16 0530 Microbiology 12/16/16 Gram Stain, Received Pending 12/16/16 Sputum Culture, Received Pending Physical Exam General Appearance Remarks Intubated and sedated. Eyes Eye Exam: Pupils Equal Neck Neck Exam: Neck Supple Pulmonary Resp Exam: Breath Sounds Equal, No Distress, Rhonchi, Decreased Bases, Diminished Breath Sounds, Poor Inspiratory Effort Cardiology CV Exam: Regular, Normal Sinus Rhythm Gastrointestinal/Abdomen GI Exam: Soft, Non-Tender, Distended Extremeties Extremities Exam: Moderate Edema, Pitting Edema Neurologic Neuro Exam: Sedated Assessment/Plan Problem List: (1) Acute renal failure ICD Codes: N17.9 - Acute kidney failure, unspecified Status: Acute Plan: baseline CKD 3-4, creatinine 1.8 KAILEE may be due to sepsis and decreased renal perfusion; may have progressed to ATN her K is normal, but has developed metabolic acidosis at this time her urine output is minimal CXR reviewed, congestive failure per report BNP elevated, echo in process she was given Lasix 20 IV ; start bumex 2 mg IV BID and monitor response stop IVF that are infusing follow urine output and renal function if she does not improve it is possible she may require hemodialysis soon avoid nephrotoxic medications Creatinine increase slightly and urine out put also decreased. No urgent need for HD, but possible HD in AM. Dr. Blackmon will follow from AM. (2) HCAP (healthcare-associated pneumonia) ICD Codes: J18.9 - Healthcare-associated pneumonia Status: Acute Plan: ordered zosyn, zithromax, steroids continue ventilator support check lactic acid monitor clinically (3) Acute respiratory failure ICD Codes: J96.00 - Acute respiratory failure Status: Resolved Plan: s/p intubation , being treated for Pneumonia (4) DM (diabetes mellitus) ICD Codes: E11.9 - Type 2 diabetes mellitus without complications Status: Chronic Plan: continue insulin therapy goal 140-180 mg/dL (5) Hypocalcemia ICD Codes: E83.51 - Hypocalcemia Plan: check PTH, vitamin D levels begin replacement Problem Qualifiers (1) Acute renal failure: Qualified Codes: N17.9 - Acute kidney failure, unspecified (2) Acute respiratory failure: Qualified Codes: J96.01 - Acute respiratory failure with hypoxia; J96.02 - Acute respiratory failure with hypercapnia (3) DM (diabetes mellitus): Qualified Codes: E13.9 - Other specified diabetes mellitus without complications Thomas Hines MD Dec 16, 2016 14:55
[2016-12-16] MEDS: MIDAZOLAM 100 MG/100 ML INJ 100 ML IV PRN (15:08)
[2016-12-16] MEDS ORDERED: EPOPROSTENOL NEB SOLUTION 10 NG/KG/MIN 100 ML NEB ONE ×2 (16:00)
[2016-12-16] MEDS: NITROGLYCERIN 2% OINT 1 GM PACKET TOPICAL PRN (17:44)
--- NOTE | 2016-12-16 18:01 | RADRPT ---
EXAM DATE/TIME: 12/16/2016 15:25 [facility] COMPARISON: No previous studies available for comparison. INDICATIONS : Increased lab values. MEDICAL HISTORY : Chronic obstructive pulmonary disease. Renal insufficiency, chronic. Hypercholesterolemia. Rheumatoid arthritis. Diabetes. Restless leg syndrome. Hypertension. Osteoporosis. Renal calculi. Pneumonia. My ocardial infarction. SURGICAL HISTORY : Hysterectomy. Tonsillectomy. Fusion, lumbar. Bilateral knee replacement. ENCOUNTER: Initial ACUITY: 1 day PAIN SCORE: Nonresponsive. LOCATION: Bilateral upper quadrant MEASUREMENTS: LIVER: 19.6 cm length COMMON DUCT: 3 mm RIGHT KIDNEY: 7.6 x 3.4 x 3.4 cm SPLEEN: 11.8 cm length FINDINGS: LIVER: The liver is prominent measuring up to 19.6 cm with no focal mass or intrahepatic ductal dilatation. There is normal hepatopedal blood flow in the portal vein. COMMON DUCT: No intraluminal mass or stone visualized. GALLBLADDER: Contains no stones, demonstrates no wall thickening or pericholecystic fluid. PANCREAS: The visualized portions are within normal limits. RIGHT KIDNEY: No hydronephrosis, stone or mass. SPLEEN: No focal lesion. CONCLUSION: 1. The liver is prominent with no focal lesion or ascites. 2. The right kidney is small and atrophic in appearance with cortical thinning and no hydronephrosis. There is increased echogenicity most characteristic of medical renal disease. Dylan Bryant MD on December 16, 2016 at 17:57 Board Certified Radiologist. This report was verified electronically.
[2016-12-16] MEDS: NIFEdipine 20 MG CAP PO SCH (23:57)
[2016-12-17] VITALS (20 sets, daily range): BP systolic 149–198; BP diastolic 70–85; PULSE 59–118; RESP 16–25; TEMP 97.4–98.7; O2SAT 93–97
[2016-12-17] MEDS: RESP: ALBUTEROL 2.5 MG/IPRATROPIUM 0.5 MG NEB (SCH) INH ×7 (00:20→23:51)
[2016-12-17] MEDS: PIPERACIL-TAZO 2.25 GM PREMIX 50 ML IV SCH ×3 (01:13→17:00)
[2016-12-17] MEDS ORDERED: CISATRACURIUM BESYLATE 20 MG/10 ML VIAL IV PUSH ONE (01:30)
[2016-12-17] MEDS ORDERED: CISATRACURIUM INJ 100 MG in SODIUM CHLOR 0.9% 250 ML INJ 250 ML IV PRN (01:30)
[2016-12-17] MEDS: CHLORHEXIDINE 0.12% (ORAL KIT) 15 ML CUP MT SCH ×3 (02:14→20:00)
[2016-12-17 02:26] LABS: BLOOD GAS BASE EXCESS -6.7 mmol/L (-2-2); BLOOD GAS HCO3 21 mmol/L (22-26); BLOOD GAS METHEMOGLOBIN 1.7 % (0-2); BLOOD GAS O2 HGB SATURATION 96 % (90-100); BLOOD GAS OXYGEN CONTENT 12.5 Vol % (12.0-20.0); BLOOD GAS PCO2 66 mmHg (38-42); BLOOD GAS PO2 158 mmHg (61-120); BLOOD GAS TOTAL HGB 9.1 G/DL (12.0-16.0); TEMP CORR TO 98.6
[2016-12-17 02:27] LABS: CRITICAL VALUE YES; DRAW SITE ART LINE; FIO2 80 %; OXYGEN DEVICE VENTILATOR; STAT YES; VENT SETTINGS PRVC/AC
--- NOTE | 2016-12-17 03:08 | RADRPT ---
EXAM DATE/TIME: 12/17/2016 01:57 [facility] COMPARISON: CHEST SINGLE AP, December 16, 2016, 7:18. INDICATIONS : Shortness of breath, possible pulmonary disease. MEDICAL HISTORY : Chronic obstructive pulmonary disease. Congestive heart failure. SURGICAL HISTORY : Fusion, lumbar. ENCOUNTER: Subsequent ACUITY: 4 - 6 days PAIN SCORE: Non-responsive. LOCATION: Bilateral chest FINDINGS: Mild bibasilar consolidation and small pleural effusions are again noted, not significantly changed. No pneumothorax. Mild cardiomegaly is stable. Endotracheal tube tip is unchanged, approximately 4 cm above the sajan. There is a left internal jug ular central venous catheter with tip in the superior vena cava. CONCLUSION: No significant change. Small effusion and mild consolidation again noted of both bases. Nirav Savage MD on December 17, 2016 at 3:06 Board Certified Radiologist. This report was verified electronically.
[2016-12-17 03:11] LABS: AUTOMATED NEUTROPHIL # 5.8 TH/MM3 (1.8-7.7); HEMATOCRIT 26.5 % (35.0-46.0); HEMO FLAGS DIFF FINAL; LYMPH % 1.6 % (9.0-44.0); LYMPHOCYTE # 0.1 TH/MM3 (1.0-4.8); MEAN CELL VOLUME 90.7 FL (80.0-100.0); MEAN CORPUSCULAR HEMOGLOBIN 30.2 PG (27.0-34.0); MEAN CORPUSCULAR HGB CONC 33.3 % (32.0-36.0); NEUT % 94.4 % (16.0-70.0); PLATELET COUNT 220 TH/MM3 (150-450); RED BLOOD COUNT 2.92 MIL/MM3 (4.00-5.30); RED CELL DISTRIBUTION WIDTH 15.1 % (11.6-17.2); WHITE BLOOD COUNT 6.1 TH/MM3 (4.0-11.0)
[2016-12-17] MEDS: BUMETANIDE INJ 100 ML IV SCH (03:12)
[2016-12-17 03:20] LABS: BLOOD GAS BASE EXCESS -5.3 mmol/L (-2-2); BLOOD GAS CARBOXYHEMOGLOBIN 1.4 % (0-4); BLOOD GAS HCO3 20 mmol/L (22-26); BLOOD GAS METHEMOGLOBIN 1.5 % (0-2); BLOOD GAS O2 HGB SATURATION 96 % (90-100); BLOOD GAS OXYGEN CONTENT 11.2 Vol % (12.0-20.0); BLOOD GAS PCO2 46 mmHg (38-42); BLOOD GAS PO2 126 mmHg (61-120); BLOOD GAS TOTAL HGB 8.1 G/DL (12.0-16.0); TEMP CORR TO 98.6
[2016-12-17 03:21] LABS: CRITICAL VALUE YES; OXYGEN DEVICE VENTILATOR
[2016-12-17 03:22] LABS: DRAW SITE ALINE; FIO2 80 %; STAT NO; VENT SETTINGS PC/AC
[2016-12-17] MEDS: fentaNYL DRIP 250 ML IV PRN (03:26)
[2016-12-17 03:40] LABS: BICARBONATE 25.4 MEQ/L (21.0-32.0); MAGNESIUM 2.3 MG/DL (1.5-2.5); POTASSIUM 3.9 MEQ/L (3.5-5.1); TOTAL BILIRUBIN ADULT 0.3 MG/DL (0.2-1.0)
[2016-12-17 03:44] LABS: CALCIUM-PROTEIN CORRECTED 6.3 MG/DL (8.5-10.1)
[2016-12-17] MEDS: INSULIN ASPART SUPPLEMENTAL SCALE SQ SCH ×6 (04:00→23:46)
[2016-12-17] MEDS: CHLORHEXIDINE GLUCONATE 2 % 1 PACK (2 CLOTHS) TOP SCH (04:00)
[2016-12-17] MEDS ORDERED: EPOPROSTENOL NEB SOLUTION 10 NG/KG/MIN 100 ML NEB ONE ×2 (04:15)
[2016-12-17] MEDS ORDERED: CALCIUM CHLORIDE INJ 2 GM in DEXTROSE 5% IN WATER 100ML INJ 100 ML IV ONE ×2 (04:30)
[2016-12-17] MEDS: hydrALAZINE HCL 100 MG TAB PO SCH ×3 (04:56→21:07)
[2016-12-17] MEDS: methylPREDNISolone SOD SUCC 40 MG/1 ML VIAL IV PUSH SCH ×4 (04:56→23:09)
[2016-12-17] MEDS: HEPARIN SODIUM - SQ 10,000 UNITS/ML VIAL SQ SCH ×2 (04:56→15:34)
[2016-12-17] MEDS: ISOSORBIDE DINITRATE 10 MG TAB PO SCH ×3 (04:57→21:07)
[2016-12-17] MEDS: NIFEdipine 20 MG CAP PO SCH ×3 (04:57→21:07)
[2016-12-17] MEDS: hydrALAZINE HCL 20 MG/ML VIAL IV PUSH PRN ×8 (05:10→23:09)
[2016-12-17] MEDS: MIDAZOLAM 100 MG/100 ML INJ 100 ML IV PRN ×2 (07:19→18:53)
[2016-12-17] MEDS: RESP: BUDESONIDE 0.5 MG/2 ML NEB NEB SCH ×2 (07:24→21:12)
--- NOTE | 2016-12-17 07:25 | MB ---
cc: ABNER VILLAREAL DATE OF CONSULTATION 12/16/2016 REASON FOR CONSULTATION Respiratory failure and COPD. HISTORY OF PRESENT ILLNESS This is a 61-year-old white female who has had a longstanding history of COPD, obstructive sleep apnea and hypertension. She has been on home oxygen at 2-3 liters nasal cannula. The patient has chronic kidney disease and extreme obesity and she did come into the ER with complaints of progressive shortness of breath and orthopnea. The patient was then seen in the emergency room but went into progressive respiratory failure and was intubated, placed on ventilator support and presently on 55% FIO2 with an PRVC/AC rate of 20. The patient is sedated, unable to provide any details of her history and most of the information is taken from the chart. The chest x-ray showed evidence of pulmonary edema and interstitial changes. PAST HISTORY The patient's past history has included - 1. History of severe COPD. 2. History of pneumonia. 3. Prior history of chronic kidney disease Stage IV. 4. History of diabetes mellitus. 5. History of hypertension. 6. She has had peripheral neuropathy. 7. History of dyslipidemia. PAST SURGICAL HISTORY 1. Hysterectomy and bilateral oophorectomy. 2. ORIF of left hip for fracture. 3. Tonsillectomy remotely. 4. Lumbar disk fusion. HABITS The patient smoked one pack per day for over 35 years, not presently. FAMILY HISTORY Noncontributory. MEDICATION LIST 1. Prednisone 40 mg daily. 2. Ceftin 500 mg b.i.d. 3. Tramadol 50 mg t.i.d. 4. atorvastatin 20 mg at bedtime. 5. Nifedipine 60 mg b.i.d. 6. Isordil 30 mg a day. 7. Gabapentin 300 mg t.i.d. 8. Anoro Ellipta 1 puff a day. 9. Metoprolol 50 mg b.i.d. 10. Lisinopril 5 mg daily. 11. Levemir injections 10 units subcu b.i.d. 12. NovoLog and insulin as directed. 13. Hydralazine 100 mg every 8 hours. 14. Clonidine 0.1 mg every 8 hours. 15. Symbicort 160 x 4.5 2 puffs b.i.d. 16. Nebulized albuterol solution q.i.d. ALLERGIES No known drug allergies. SYSTEMS REVIEW The patient is intubated. PHYSICAL EXAMINATION GENERAL: This is a middle-aged obese white female who is intubated, sedated, assisting the ventilator. VITAL SIGNS: Blood pressure is 110/60, pulse is 68, respirations 20, temperature 97.8. HEENT: Normocephalic. Pupils reactive and equal. Tongue is moist. Nasal mucosae edematous. Throat is injected. Secretions are noted. NECK: Supple. No bruits or thyroid enlargement or lymphadenopathy. Trachea midline. CHEST: Equal movements with scattered wheezes and there are prolonged expirations, a few crackles at the right base. HEART: The heart sounds are irregular, S1-S2. No murmur. No S3. ABDOMEN: Soft and slightly distended. Bowel sounds are active. No organomegaly. EXTREMITIES: Varicosities and minimal edema. Reflexes are 1+. NEUROLOGIC: The patient is partially sedated. SKIN: Negative. IMPRESSION 1. Hypercapnic respiratory failure. 2. Severe COPD with emphysema. 3. History of diabetes mellitus. 4. Hypertension. 5. History of obstructive sleep apnea. PLAN 1. The patient will be maintained on ventilator support and FIO2 will be weaned down to 40%. 2. He will used Solu-Medrol 60 mg IV q. 6. 3. Antibiotic therapy including Levaquin 500 mg daily will be continued. 4. Bumex 2 mg IV twice daily will be continued. 5. Follow-up chest x-ray will be done in the a.m. 6. The patient will be weaned to C-PAP if possible in the a.m. and if respiratory parameters are okay we will attempt to extubate her. Thank you Dr. Reilly for this consultation. Abner Villareal MD JRONI/SUKI /11:14 PM /7:06 AM
[2016-12-17] MEDS ORDERED: CISATRACURIUM 100 MG/NS 250 ML IV PRN ×2 (07:30)
[2016-12-17] MEDS: FAMOTIDINE 20 MG/2 ML VIAL IV PUSH SCH ×2 (08:03→21:07)
[2016-12-17] MEDS: POLYETHYLENE GLYCOL 17 GM PKG OG-TUBE SCH ×2 (08:03→21:07)
[2016-12-17] MEDS: DOCUSATE SODIUM 50 MG/SENNA 8.6 MG TAB PO SCH ×2 (08:04→21:07)
[2016-12-17] MEDS: LACTULOSE SYRUP 20 GM/30 ML CUP OG-TUBE SCH ×2 (08:04→21:07)
[2016-12-17] MEDS: ARTIFICIAL TEARS OPTH OINT 3.5 APPLIC/3.5 GM TUBO EACH EYE SCH ×2 (08:04→21:06)
[2016-12-17] MEDS: LEVOFLOXACIN 500 MG PREMIX INJ 100 ML IV SCH (08:04)
[2016-12-17] MEDS: cloNIDine HCL 0.1 MG TAB PO SCH (08:04)
[2016-12-17] MEDS: SODIUM CHLORIDE 0.9% FLUSH 10 ML FLUSH IVF SCH (08:05)
[2016-12-17] MEDS: SODIUM CHLORIDE 0.9% FLUSH 10 ML FLUSH IV FLUSH SCH ×2 (08:05→21:06)
[2016-12-17] MEDS: UMECLIDINIUM 62.5 MCG/VILANTEROL 25 MCG INHALER INH SCH (08:06)
[2016-12-17] MEDS: JUVEN POWDER 1 PACK G-TUBE SCH ×2 (08:06→21:00)
[2016-12-17] MEDS: ARTIFICIAL TEARS OPTH SOLN 15 ML BTL EACH EYE SCH ×3 (08:06→16:54)
--- NOTE | 2016-12-17 08:37 | RADRPT ---
EXAM DATE/TIME: 12/17/2016 08:05 [facility] COMPARISON: CHEST SINGLE AP, December 17, 2016, 1:57. INDICATIONS : Short of breath. MEDICAL HISTORY : Chronic obstructive pulmonary disease. Renal insufficiency, chronic. SURGICAL HISTORY : Hysterectomy. Tonsillectomy. Fusion, lumbar. Bilateral knee replacement. ENCOUNTER: Subsequent ACUITY: 3 days PAIN SCORE: Non-responsive. LOCATION: Bilateral chest FINDINGS: Cardiomegaly end basilar atelectasis with patchy left lower lobe airspace disease suspected. Endotrac heal tube in satisfactory position. Left jugular line tip overlies the left brachiocephalic vein. CONCLUSION: Slight improved aeration of the right lung base otherwise stable. Kenny Nails MD on December 17, 2016 at 8:35 Board Certified Radiologist. This report was verified electronically.
--- NOTE | 2016-12-17 11:17 | HHI.NPPN ---
Subjective History of Present Illness 60 y/o female pt with whom we follow in outpatient setting. PMH of COPD, HTN, DM and hyperlipidemia, she also has CKD IV , due to diabetic nephropathy. Her baseline creatinine measures 1.9, GFR 28. She came in for shortness of breath for days. She was hypoxic on arrival and intubated for airway protection. Interval History Bumex drip was initiated yesterday, urine output has improved. FiO2 down to 60 % . BUN and creatinine are worse. Discussed with Dr. Gastelum. She is sedated and paralyzed while on the ventilator. Objective Data Data 12/17/16 12/18/16 19:00 07:00 Output Total 500 ml Balance -500 ml Output Urine Total 500 ml Vital Signs Date Time Temp Pulse Resp B/P (MAP) Pulse Ox O2 Delivery O2 Flow Rate FiO2 12/17/16 08:00 83 12/17/16 08:00 70 12/17/16 08:00 98.4 83 25 162/74 (103) 97 186/75 (112) 12/17/16 07:25 97 70 12/17/16 06:00 86 12/17/16 06:00 86 163/74 (103) 187/72 (110) 12/17/16 04:18 97 75 12/17/16 04:00 80 12/17/16 04:00 97.4 78 25 151/71 (97) 97 170/72 (104) 12/17/16 04:00 78 12/17/16 02:10 97 80 12/17/16 02:00 118 12/17/16 00:57 94 80 12/17/16 00:00 97.5 63 22 149/70 (96) 94 174/77 (109) 12/17/16 00:00 63 149/70 (96) 174/77 (109) 12/17/16 00:00 55 12/17/16 00:00 63 12/16/16 22:04 92 65 12/16/16 22:00 70 12/16/16 20:20 91 65 12/16/16 20:00 67 12/16/16 20:00 55 12/16/16 20:00 97.6 67 22 146/68 (94) 93 174/72 (106) 12/16/16 18:00 74 12/16/16 18:00 74 154/70 (98) 173/95 (121) 12/16/16 16:26 100 55 12/16/16 16:00 63 12/16/16 16:00 98.4 63 22 139/66 (90) 94 163/72 (102) 12/16/16 16:00 55 12/16/16 14:00 68 12/16/16 14:00 68 129/65 (86) 148/65 (92) 12/16/16 12:02 100 55 12/16/16 12:00 163/78 (106) 12/16/16 12:00 55 12/16/16 12:00 76 12/16/16 12:00 99.2 78 23 163/78 (106) 94 -: 12/17/16 0247 12/17/16 0247 Physical Exam Eyes Eye Exam: Pupils Equal Neck Neck Exam: Neck Supple Pulmonary Resp Exam: Breath Sounds Equal, No Distress, Rhonchi, Decreased Bases, Diminished Breath Sounds Cardiology CV Exam: Regular, Normal Sinus Rhythm Gastrointestinal/Abdomen GI Exam: Soft, Non-Tender, Distended Extremeties Extremities Exam: Moderate Edema, Pitting Edema Neurologic Neuro Exam: Sedated Assessment/Plan Problem List: (1) Acute renal failure ICD Codes: N17.9 - Acute kidney failure, unspecified Status: Acute Plan: baseline CKD 3-4, creatinine 1.8 KAILEE may be due to sepsis and decreased renal perfusion; may have progressed to ATN. Urine output has improved after initiation of Bumex drip. Monitor for another 24 hours. Likely will need dialysis tomorrow. Avoid nephrotoxic agents. (2) HCAP (healthcare-associated pneumonia) ICD Codes: J18.9 - Healthcare-associated pneumonia Status: Acute Plan: Patient is on Levaquin, Zosyn and Vancomycin. Dose medications appropriate to her renal status. Carefully monitor Vancomycin dosing and levels, avoid levels above 20. (3) Acute respiratory failure ICD Codes: J96.00 - Acute respiratory failure Status: Acute Plan: s/p intubation , being treated for Pneumonia (4) DM (diabetes mellitus) ICD Codes: E11.9 - Type 2 diabetes mellitus without complications Status: Chronic Plan: continue insulin therapy goal 140-180 mg/dL (5) Hypocalcemia ICD Codes: E83.51 - Hypocalcemia Plan: PTH is high. She has secondary hyperparathyroidism in the presence of hyperphosphatemia and hypocalcemia. I have started Calcium acetate to be given via her feeding tube. Start Calcitriol once phosphorus improves. Problem Qualifiers (1) Acute renal failure: Qualified Codes: N17.9 - Acute kidney failure, unspecified (2) Acute respiratory failure: Qualified Codes: J96.01 - Acute respiratory failure with hypoxia; J96.02 - Acute respiratory failure with hypercapnia (3) DM (diabetes mellitus): Qualified Codes: E13.9 - Other specified diabetes mellitus without complications Thomas Blackmon MD Dec 17, 2016 11:17
[2016-12-17] MEDS: CALCIUM ACETATE 667 MG CAP PO SCH ×2 (11:20→16:54)
--- NOTE | 2016-12-17 11:24 | HHI.CCPN ---
Subjective Remarks/Hospital Course 61-year-old female. Date of admission 12/14/2016. Past records includes COPD/oxygen dependent, obstructive sleep apnea not using nocturnal CPAP , hypertension, morbid obesity. Hypertension, chronic kidney disease stage IV. She presents to [facility] 2 day history of shortness of breath.. She is essentially in extremis 100 hour troponin emergency report. She is immediately placed on BiPAP however failed and was emergently endotracheally intubated. She required 100% FiO2 and was intermittently hypotensive the ED. CT head negative. Chest x-ray revealed possible vascular congestion. She is also noted of a calcium of 5.0. Elevated creatinine 5.1 with a baseline 1.9. she received 2 g calcium chloride and she received 20 mg IV Lasix. [employer]ation [employer] Engineer discontinued IV fluids and starting Bumex at 2 mg IV twice a day. 2-D echocardiogram revealed hyperdynamic state with EF of 65-70%. 12/15: - Afebrile. Off all vasopressors. 700 cc urine overnight. She is responding to fluids. Currently on midazolam drip. We'll attempt sedation vacation today if FiO2 decreased to around 50%. Subjective 12/16: Afebrile. Off all vasopressors. 1300 cc urine output past 24 hours. Nonoliguric. Currently on Versed and fentanyl drips. Moving all 4 extremities spontaneous. Will briefly attempt sedation vacation day but resedate BRIANA. 12/17: Patient had to be neuromuscularly paralyzed due to high peak pressures and hypoventilation. Started on Bumex drip overnight. Currently on 70% fio2, 10 PEEP , due to severe hypoxia. BUN/Creat 108/5, but urine output is adequate on Bumex drip-Nephrology wants to wait 24 hours prior to HD. Chest exam reveals severe bilateral expiratory wheezing Objective Vital Signs Date Time Temp Pulse Resp B/P (MAP) Pulse Ox O2 Delivery O2 Flow Rate FiO2 12/17/16 08:00 83 12/17/16 08:00 70 12/17/16 08:00 98.4 25 162/74 (103) 97 186/75 (112) 12/14/16 18:00 Ventilator Intake and Output 12/17/16 12/17/16 12/17/16 07:59 15:59 23:59 Intake Total 945 ml Output Total 800 ml 500 ml Balance 145 ml -500 ml Result Diagram: 12/17/16 0247 12/17/16 0247 Other Results Microbiology Date/Time Source Procedure Growth Status 12/14/16 17:35 Urine Catheterized Urine Legionella Antigen - Final PRESUMPTIVE NEGATIVE FOR LEGIONELLA P... Complete 12/14/16 17:35 Urine Catheterized Urine Streptococcus pneumoniae Antigen (M - Final PRESUMPTIVE NEGATIVE FOR STREPTOCOCCU... Complete Laboratory Tests Test 12/17/16 02:06 12/17/16 03:05 Blood Gas Puncture Site ART LINE JOSE ANTONIO Blood Gas Patient Temperature 98.6 98.6 Blood Gas HCO3 21 mmol/L (22-26) 20 mmol/L (22-26) Blood Gas Base Excess -6.7 mmol/L (-2-2) -5.3 mmol/L (-2-2) Blood Gas Oxygen Saturation 96 % (90-100) 96 % (90-100) Arterial Blood pH 7.13 (7.380-7.420) 7.27 (7.380-7.420) Arterial Blood Partial Pressure CO2 66 mmHg (38-42) 46 mmHg (38-42) Arterial Blood Partial Pressure O2 158 mmHg (61-120) 126 mmHg (61-120) Arterial Blood Oxygen Content 12.5 Vol % (12.0-20.0) 11.2 Vol % (12.0-20.0) Arterial Blood Carboxyhemoglobin 1.0 % (0-4) 1.4 % (0-4) Arterial Blood Methemoglobin 1.7 % (0-2) 1.5 % (0-2) Blood Gas Hemoglobin 9.1 G/DL (12.0-16.0) 8.1 G/DL (12.0-16.0) Oxygen Delivery Device VENTILATOR VENTILATOR Blood Gas Ventilator Setting PRVC/AC PC/AC Blood Gas Inspired Oxygen 80 % 80 % Imaging Last Impressions Chest X-Ray 12/15/16 0000 Signed Impressions: Service Date/Time: Thursday, December 15, 2016 03:58 - CONCLUSION: 1. Support apparatus in good position. Bilateral airspace consolidation. Freddie Tubbs MD Renal Ultrasound 12/14/16 0000 Signed Impressions: Service Date/Time: Wednesday, December 14, 2016 18:21 - CONCLUSION: Medical renal disease with echogenic kidneys. There is some atrophy of the right kidney. Nirav Camacho MD Head CT 12/14/16 0000 Signed Impressions: Service Date/Time: Wednesday, December 14, 2016 17:38 - CONCLUSION: Negative for an acute process. Sander Resendiz MD FACR Objective Remarks GENERAL: 60-year-old female, critically ill orotracheally intubated SKIN: Warm and dry. No rash. Poor skin turgor. HEAD: Atraumatic. Normocephalic. EYES: Pupils equal and round about 3 mm bilaterally and reactive. No scleral icterus. No injection or drainage. ENT: No nasal bleeding or discharge. Mucous membranes pink and moist. NECK: Trachea midline. No JVD. Left IJ is clean dry and intact CARDIOVASCULAR: Regular rate and rhythm. S1, S2 no S4. RESPIRATORY: Diminished breath sounds throughout. Symmetrical excursion. Breath sounds equal bilaterally, with bilateral severe expiratory wheezing. GASTROINTESTINAL: Abdomen soft, non-tender, protuberant. Active bowel sounds are appreciated MUSCULOSKELETAL: Extremities without significant peripheral edema. No obvious deformities. NEUROLOGICAL: Neuromuscular paralysis limits exam. Date of Insertion: Dec 14, 2016 Line: Central Venous Catheter Side: Left Location: Internal, Jugular A/P Assessment and Plan Neuro/Psych: Toxic metabolic Encephalopathy - likely metabolic/CO2 retention Restless like syndrome Diabetic neuropathy Versed drip at 10 mg an hour/250 mcg/h fentanyl drips for sedation/analgesia while intubated On Nimbex for NM paralysis No sedation vacation due to neuromuscular paralysis CT brain 12/14 revealed no acute intracranial findings Acetaminophen for fever, Holding gabapentin 300 mg 3 times a day in light of altered mental status CV: Uncontrolled hypertension History of hypertension History dyslipidemia Off all pressors currently receiving antihypertensives CVP -4 Home medications include lisinopril 5 mill grams daily, metoprolol 50 mill grams twice a day, clonidine 0.1 mg 3 times a day, nifedipine 60 mill grams every 12 hours, Imdur 30 mg daily and hydralazine 100 mg 3 times daily. Currently in hydralazine 100 3 times a day,Isordil mill grams 3 times a day. Started Procardia at 10 mg every 8 hours and clonidine 0.1 milligram twice a day. Increase Clonidine to 0.3 mg TID 12/17. Resume metoprolol if still BP not controlled As needed hydralazine/Nitropaste/Cleviprex EKG showed normal sinus rhythm. No acute ST-T changes. Specifically no QT prolongation setting of hypocalcemia Echocardiogram 2015 EF 55-60%. No regional wall motion abnormality. LEXIE- 61 mmHg. Mild MR. Echocardiogram 12/14/16 - EF 65-70%. No regional wall motion abnormality. Hyperdynamic state Resp: Acute hypoxemic respiratory failure Severe COPD/O2 dependent, with acute exacerbation HERACLIO/no CPAP at home PC/AC 16/Pinsp 28/0.87/10/70 Ventilator bundle, Budesonide 0.5 mg/2 mL one inhalation twice a day Patient has severe wheezing on clinical exam. Keep vent rate less than 16 breaths per minute to avoid entrapping Tolerate hypercapnia, tolerate pH 7.15-7.2 Albuterol/ipratropium every 4 hours with albuterol hours is every 2 hours when necessary Goal keep SPO2 around 88 Methylprednisolone 60 mg IV every 6 hours Follow-up ABG today 1200 At home Anoro Ellipta 62.5/25 one inhalation daily and Symbicort 160/4.5 2 puffs every 12 hours with as needed albuterol Chest x-ray revealed possible pulmonary edema with bilateral lower lobe infiltrate/atelectasis On epoprostenol aerosols 12/14 dosed at 50 ng/kg per minute. Will wean by 10 ng/ kg per minute every 8 hours until off. Currently at 10 ng/kg per minute GI: Elevated transaminases Nepro goal 30 cc an hour. Famotidine for GI prophylaxis Docusate sodium/Senokot for bowel regimen. MiraLAX and lactulose Avoid hepatotoxic medications Trending downward. Check CPK and hepatitis panel - negative : Bonilla will be placed for accurate I's and O's in a critically ill patient Endo: Diabetes mellitus with neuropathy Hyperglycemia At home on insulin detemir 10 units twice a day with sliding scale insulin. on sliding scale insulin with Accu-Cheks every 6 hours to maintain euglycemia/ high regimen Novulog Renal: Acute kidney injury in the setting of Chronic kidney disease stage 4 - AIN versus medication Creatinine currently 5.0.d/w Dr. Blackmon, Bun 108. Nephrology Dr. Blackmon- he wants to wait another 24 hours before deciding on hemodialysis Urine eosinophils - 0-2 and electrolytes FeNa 0.4 Renal ultrasound 12/14 indicative of medical renal disease with atrophied right kidney Monitor urine output. Accurate I's and O's Noted LIZANDRO 1-80 last admission/speckled. Heme: Normocytic anemia Monitor CBC daily ID: Piperacillin/tazobactam day #4. Switch to levofloxacin day 3 for possible pulmonary coverage/atypical. Previously on azithromycin. DC Vancomycin. UA negative/, sputum, influenza and blood cultures 2 all ordered. Blood cultures 12/14 and 12/15 negative to date. Negative urine pneumococcal and Legionella antigens FEN: Hypocalcemia Hyponatremia Hyperphosphatemia Replace electrolytes as clinically indicated per ICU likely protocol Phosphorus elevated 5.9, PTH elevated 705.7, vitamin D 25 pending and vitamin D 25 12.3 recheck amylase. Likely from underlying renal disease. Access Left IJ CVL day #4 place 9 Prophylaxis - GI -famotidine - DVT - SCD/heparin subcutaneous Critical Care: The total critical care time was 45 minutes. Time to perform other separately billable procedures was not included in the critical care time. Patient remains critically, with severe hypoxemic respiratory failure and multiorgan failure. With clinical deterioration currently patient is neuromuscularly paralyzed is on 70% oxygen and 10 of PEEP. Renal failure also worsening may need hemodialysis in 24 hours Kathie Gastelum MD Dec 17, 2016 11:24
[2016-12-17 12:02] LABS: BLOOD GAS BASE EXCESS -3.3 mmol/L (-2-2); BLOOD GAS CARBOXYHEMOGLOBIN 1.5 % (0-4); BLOOD GAS HCO3 22 mmol/L (22-26); BLOOD GAS METHEMOGLOBIN 1.4 % (0-2); BLOOD GAS O2 HGB SATURATION 94 % (90-100); BLOOD GAS PCO2 49 mmHg (38-42); BLOOD GAS PO2 97 mmHg (61-120); BLOOD GAS TOTAL HGB 8.2 G/DL (12.0-16.0); TEMP CORR TO 98.6
[2016-12-17 12:03] LABS: CRITICAL VALUE YES; DRAW SITE ART LINE; FIO2 55 %; OXYGEN DEVICE VENTILATOR; STAT NO; VENT SETTINGS SEE COMMENTS
[2016-12-17] MEDS: cloNIDine HCL 0.3 MG TAB PO SCH ×2 (12:26→21:07)
--- NOTE | 2016-12-17 17:26 | HHI.PR ---
Subjective Remarks Sedated and on the vent at 60 % FIo2 . Was restless last nite and now on paralytics. On a Bumex drip. ABG's are poor. Objective Vital Signs Date Time Temp Pulse Resp B/P (MAP) Pulse Ox O2 Delivery O2 Flow Rate FiO2 12/17/16 15:46 93 60 12/17/16 14:00 83 12/17/16 12:00 98.7 74 16 167/75 (105) 96 190/80 (116) 12/17/16 12:00 74 190/80 (116) 167/75 (105) 12/17/16 12:00 55 12/17/16 12:00 83 12/17/16 11:09 96 55 12/17/16 10:00 83 12/17/16 08:00 83 12/17/16 08:00 70 12/17/16 08:00 98.4 83 25 162/74 (103) 97 186/75 (112) 12/17/16 07:25 97 70 12/17/16 06:00 86 12/17/16 06:00 86 163/74 (103) 187/72 (110) 12/17/16 04:18 97 75 12/17/16 04:00 80 12/17/16 04:00 97.4 78 25 151/71 (97) 97 170/72 (104) 12/17/16 04:00 78 12/17/16 02:10 97 80 12/17/16 02:00 118 12/17/16 00:57 94 80 12/17/16 00:00 97.5 63 22 149/70 (96) 94 174/77 (109) 12/17/16 00:00 63 149/70 (96) 174/77 (109) 12/17/16 00:00 55 12/17/16 00:00 63 12/16/16 22:04 92 65 12/16/16 22:00 70 12/16/16 20:20 91 65 12/16/16 20:00 67 12/16/16 20:00 55 12/16/16 20:00 97.6 67 22 146/68 (94) 93 174/72 (106) 12/16/16 18:00 74 12/16/16 18:00 74 154/70 (98) 173/95 (121) I/O 12/16/16 12/16/16 12/16/16 12/17/16 12/17/16 12/17/16 07:00 15:00 23:00 07:00 15:00 23:00 Intake Total 586 ml 1120.5 ml 835 ml 945 ml Output Total 240 ml 169 ml 787 ml 800 ml 1850 ml 200 ml Balance 346 ml 951.5 ml 48 ml 145 ml -1850 ml -200 ml Intake IV Total 1120.5 ml 495 ml 705 ml Tube Feeding 236 ml 220 ml 240 ml Tube Irrigant 120 ml Other 350 ml Output Urine Total 240 ml 169 ml 787 ml 800 ml 1850 ml 200 ml Stool Total 0 ml 0 ml Result Diagram: 12/17/167 12/17/16246 Objective Remarks PHYSICAL EXAMINATION GENERAL: This is a middle-aged obese white female who is intubated, sedated, assisting the ventilator. HEENT: Normocephalic. Pupils reactive and equal. Tongue is moist. Nasal mucosae edematous. Throat Secretions are noted. NECK: Supple. No bruits or thyroid enlargement or lymphadenopathy. Trachea midline. CHEST: Equal movements with scattered wheezes and there are prolonged expirations, a few crackles at the bases. HEART: The heart sounds are irregular, S1-S2. No murmur. No S3. ABDOMEN: Soft and slightly distended. Bowel sounds are active. No organomegaly. EXTREMITIES: Varicosities and minimal edema. Reflexes are 1+. NEUROLOGIC: The patient is partially sedated. SKIN: Negative. Assessment and Plan Assessment and Plan IMPRESSION 1. Hypercapnic respiratory failure. 2. Severe COPD with emphysema. 3. History of diabetes mellitus. 4. Hypertension. 5. History of obstructive sleep apnea. 6. CKD 1V/KAILEE Plan : 1. Continue on Vent support and wean FIO2 . 2. Cont Antibiotics. 3. Bumex Drip as ordered. 4. Nebs q6h with duoneb 5. CXR,CBC,BMP in am 6. Tube feeds at 30 CC 7. Solumedrol 40 mg IV Q6H Heidi Villareal MD Dec 17, 2016 17:26
[2016-12-17] MEDS ORDERED: CLEVIDIPINE INJ 50 ML IV PRN (17:45)
[2016-12-17] MEDS: HYDROmorphone HCL 2 MG TAB PO SCH ×2 (18:07→23:11)
[2016-12-17] MEDS: PROPOFOL 1000 MG/100 ML INJ 100 ML IV PRN ×2 (19:28→22:38)
[2016-12-17] MEDS ORDERED: niCARdipine INJ 25 MG in SODIUM CHLOR 0.9% 250 ML INJ 250 ML IV PRN (23:45)
[2016-12-18] VITALS (23 sets, daily range): BP systolic 118–181; BP diastolic 61–81; PULSE 49–63; RESP 10–32; TEMP 97.5–97.8; O2SAT 55–96
[2016-12-18] MEDS: PIPERACIL-TAZO 2.25 GM PREMIX 50 ML IV SCH ×3 (00:05→17:02)
[2016-12-18] MEDS: BUMETANIDE INJ 100 ML IV SCH (00:08)
[2016-12-18] MEDS: SODIUM CHLOR 0.9% 1000 ML INJ 1,000 ML IV SCH (03:00)
[2016-12-18] MEDS: INSULIN ASPART SUPPLEMENTAL SCALE SQ SCH ×5 (04:00→20:00)
[2016-12-18] MEDS: CHLORHEXIDINE GLUCONATE 2 % 1 PACK (2 CLOTHS) TOP SCH (04:00)
[2016-12-18] MEDS: RESP: ALBUTEROL 2.5 MG/IPRATROPIUM 0.5 MG NEB (SCH) INH ×6 (04:35→23:21)
[2016-12-18] MEDS: NIFEdipine 20 MG CAP PO SCH ×3 (06:00→23:07)
[2016-12-18] MEDS: cloNIDine HCL 0.3 MG TAB PO SCH ×3 (06:00→20:21)
[2016-12-18 06:05] LABS: AUTOMATED NEUTROPHIL # 4.2 TH/MM3 (1.8-7.7); HEMO FLAGS DIFF FINAL; LYMPH % 3.8 % (9.0-44.0); LYMPHOCYTE # 0.2 TH/MM3 (1.0-4.8); MEAN CELL VOLUME 88.8 FL (80.0-100.0); MEAN CORPUSCULAR HEMOGLOBIN 29.2 PG (27.0-34.0); MEAN CORPUSCULAR HGB CONC 32.9 % (32.0-36.0); MONO % 3.8 % (0.0-8.0); NEUT % 92.4 % (16.0-70.0); PLATELET COUNT 185 TH/MM3 (150-450); RED BLOOD COUNT 2.81 MIL/MM3 (4.00-5.30); RED CELL DISTRIBUTION WIDTH 14.4 % (11.6-17.2); WHITE BLOOD COUNT 4.5 TH/MM3 (4.0-11.0)
--- NOTE | 2016-12-18 06:41 | RADRPT ---
EXAM DATE/TIME: 12/18/2016 06:04 [facility] COMPARISON: CHEST SINGLE AP, December 17, 2016, 8:05. INDICATIONS : Respiratory status. MEDICAL HISTORY : None. SURGICAL HISTORY : None. ENCOUNTER: Subsequent ACUITY: 4 - 6 days PAIN SCORE: Non-responsive. LOCATION: Bilateral chest FINDINGS: Stable ETT, left IJ central line, and NGT coursing beyond the GE junction with tip omitted from the i mage. Cardiac silhouette remains enlarged with prominence of the central bony vasculature. Redemonstr ation of bilateral lower lung zone airspace disease and probable trace left pleural effusion. CONCLUSION: 1. Stable tubes and lines, as above. 2. Cardiomegaly with positive fluid bones. 3. Stable bilateral lower lung zone airspace disease and probable trace left pleural effusion. Dereck Bang MD on December 18, 2016 at 6:38 Board Certified Radiologist. This report was verified electronically.
[2016-12-18] MEDS: ISOSORBIDE DINITRATE 10 MG TAB PO SCH ×3 (06:42→21:50)
[2016-12-18] MEDS: hydrALAZINE HCL 100 MG TAB PO SCH ×3 (06:42→20:21)
[2016-12-18] MEDS: HYDROmorphone HCL 2 MG TAB PO SCH ×4 (06:42→23:10)
[2016-12-18] MEDS: methylPREDNISolone SOD SUCC 40 MG/1 ML VIAL IV PUSH SCH ×4 (06:43→23:09)
[2016-12-18] MEDS: HEPARIN SODIUM - SQ 10,000 UNITS/ML VIAL SQ SCH ×2 (06:45→16:58)
[2016-12-18] MEDS: PROPOFOL 1000 MG/100 ML INJ 100 ML IV PRN (06:56)
[2016-12-18 07:10] LABS: BICARBONATE 24.9 MEQ/L (21.0-32.0); POTASSIUM 3.1 MEQ/L (3.5-5.1); TOTAL BILIRUBIN ADULT 0.3 MG/DL (0.2-1.0)
[2016-12-18 07:14] LABS: CALCIUM-PROTEIN CORRECTED 6.6 MG/DL (8.5-10.1)
[2016-12-18] MEDS: RESP: BUDESONIDE 0.5 MG/2 ML NEB NEB SCH ×2 (08:17→19:32)
--- NOTE | 2016-12-18 08:55 | HHI.CCPN ---
Subjective Remarks/Hospital Course 61-year-old female. Date of admission 12/14/2016. Past records includes COPD/oxygen dependent, obstructive sleep apnea not using nocturnal CPAP , hypertension, morbid obesity. Hypertension, chronic kidney disease stage IV. She presents to [facility] 2 day history of shortness of breath.. She is essentially in extremis 100 hour troponin emergency report. She is immediately placed on BiPAP however failed and was emergently endotracheally intubated. She required 100% FiO2 and was intermittently hypotensive the ED. CT head negative. Chest x-ray revealed possible vascular congestion. She is also noted of a calcium of 5.0. Elevated creatinine 5.1 with a baseline 1.9. she received 2 g calcium chloride and she received 20 mg IV Lasix. [employer] discontinued IV fluids and starting Bumex at 2 mg IV twice a day. 2-D echocardiogram revealed hyperdynamic state with EF of 65-70%. 12/15: - Afebrile. Off all vasopressors. 700 cc urine overnight. She is responding to fluids. Currently on midazolam drip. We'll attempt sedation vacation today if FiO2 decreased to around 50%. Subjective 12/16: Afebrile. Off all vasopressors. 1300 cc urine output past 24 hours. Nonoliguric. Currently on Versed and fentanyl drips. Moving all 4 extremities spontaneous. Will briefly attempt sedation vacation day but resedate BRIANA. 12/17: Patient had to be neuromuscularly paralyzed due to high peak pressures and hypoventilation. Started on Bumex drip overnight. Currently on 70% fio2, 10 PEEP , due to severe hypoxia. BUN/Creat 108/5, but urine output is adequate on Bumex drip-Nephrology wants to wait 24 hours prior to HD. Chest exam reveals severe bilateral expiratory wheezing 12/18: Patient remains critically severely hypoxemic. Good response to Bumex gtt. 5.1 L urine output in 24 hours. BUN/creatinine trending down 99/4. Potassium being replaced. Continue to wean FiO2 as tolerated remains on 55% with 12 of PEEP. I will discontinue neuromuscular blockade today Objective Vital Signs Date Time Temp Pulse Resp B/P (MAP) Pulse Ox O2 Delivery O2 Flow Rate FiO2 12/18/16 08:20 92 50 12/18/16 06:00 57 177/79 (111) 172/81 (111) 12/18/16 04:00 97.7 16 12/14/16 18:00 Ventilator Intake and Output 12/18/16 12/18/16 12/19/16 08:00 16:00 00:00 Output Total 785 ml Balance -785 ml Result Diagram: 12/18/16 0525 12/18/16 0525 Other Results Laboratory Tests Test 12/17/16 11:54 Blood Gas Puncture Site ART LINE Blood Gas Patient Temperature 98.6 Blood Gas HCO3 22 mmol/L (22-26) Blood Gas Base Excess -3.3 mmol/L (-2-2) Blood Gas Oxygen Saturation 94 % (90-100) Arterial Blood pH 7.29 (7.380-7.420) Arterial Blood Partial Pressure CO2 49 mmHg (38-42) Arterial Blood Partial Pressure O2 97 mmHg (61-120) Arterial Blood Oxygen Content 11.0 Vol % (12.0-20.0) Arterial Blood Carboxyhemoglobin 1.5 % (0-4) Arterial Blood Methemoglobin 1.4 % (0-2) Blood Gas Hemoglobin 8.2 G/DL (12.0-16.0) Oxygen Delivery Device VENTILATOR Blood Gas Ventilator Setting SEE COMMENTS Blood Gas Inspired Oxygen 55 % Imaging Last Impressions Chest X-Ray 12/15/16 0000 Signed Impressions: Service Date/Time: Thursday, December 15, 2016 03:58 - CONCLUSION: 1. Support apparatus in good position. Bilateral airspace consolidation. Freddie Tubbs MD Renal Ultrasound 12/14/16 0000 Signed Impressions: Service Date/Time: Wednesday, December 14, 2016 18:21 - CONCLUSION: Medical renal disease with echogenic kidneys. There is some atrophy of the right kidney. Nirav Camacho MD Head CT 12/14/16 0000 Signed Impressions: Service Date/Time: Wednesday, December 14, 2016 17:38 - CONCLUSION: Negative for an acute process. Sander Resendiz MD FACR Objective Remarks GENERAL: 60-year-old female, critically ill orotracheally intubated, neuromuscularly paralyzed SKIN: Warm and dry. No rash. Poor skin turgor. HEAD: Atraumatic. Normocephalic. EYES: Pupils equal and round about 3 mm bilaterally and reactive. No scleral icterus. No injection or drainage. ENT: No nasal bleeding or discharge. Mucous membranes pink and moist. NECK: Trachea midline. No JVD. Left IJ is clean dry and intact CARDIOVASCULAR: Regular rate and rhythm. S1, S2 no S4. RESPIRATORY: Diminished breath sounds throughout. Symmetrical excursion. Bilateral severe expiratory wheezing. GASTROINTESTINAL: Abdomen soft, non-tender, protuberant. Active bowel sounds are appreciated MUSCULOSKELETAL: Extremities without significant peripheral edema. No obvious deformities. NEUROLOGICAL: Neuromuscular paralysis limits exam. Date of Insertion: Dec 14, 2016 Line: Central Venous Catheter Side: Left Location: Internal, Jugular A/P Assessment and Plan Neuro/Psych: Toxic metabolic Encephalopathy - likely metabolic/CO2 retention Restless like syndrome Diabetic neuropathy Versed drip at 10 mg an hour/250 mcg/h fentanyl drips for sedation/analgesia while intubated Scheduled on started 12/17/16 due to persistent hypertension responding to fentanyl bolus On Nimbex for NM paralysis. DC today CT brain 12/14 revealed no acute intracranial findings Acetaminophen for fever, Holding gabapentin 300 mg 3 times a day in light of altered mental status CV: Uncontrolled hypertension History of hypertension History dyslipidemia Off all pressors currently receiving antihypertensives Home medications include lisinopril 5 mill grams daily, metoprolol 50 mill grams twice a day, clonidine 0.1 mg 3 times a day, nifedipine 60 mill grams every 12 hours, Imdur 30 mg daily and hydralazine 100 mg 3 times daily. Currently on hydralazine 100 3 times a day,Isordil mill grams 3 times a day. Procardia at 20 mg every 8 hours and clonidine 0.3 milligram TID Increase Procardia to 40 mg q8hr 12/18. Hold metoprolol due to bradycardia Currently on Cardene infusion to keep systolic blood pressure less than 160 As needed hydralazine IV EKG showed normal sinus rhythm. No acute ST-T changes. Specifically no QT prolongation setting of hypocalcemia Echocardiogram 2015 EF 55-60%. No regional wall motion abnormality. LEXIE- 61 mmHg. Mild MR. Echocardiogram 12/14/16 - EF 65-70%. No regional wall motion abnormality. Hyperdynamic state Resp: Acute hypoxemic respiratory failure Severe COPD/O2 dependent, with acute exacerbation HERACLIO/no CPAP at home PC/AC 16/Pinsp 28/0.87/12/55 Ventilator bundle, Budesonide 0.5 mg/2 mL one inhalation twice a day Keep vent rate less than 16 breaths per minute to avoid entrapping, patient has very prolonged expiratory phase Tolerate hypercapnia, tolerate pH 7.2. Albuterol/ipratropium every 4 hours with albuterol hours is every 2 hours when necessary Goal keep SPO2 around 88, Follow-up ABG today Methylprednisolone 60 mg IV every 6 hours At home Anoro Ellipta 62.5/25 one inhalation daily and Symbicort 160/4.5 2 puffs every 12 hours with as needed albuterol Chest x-ray revealed possible pulmonary edema with bilateral lower lobe infiltrate/atelectasis Flolan Dcd 12/17/16 GI: Elevated transaminases Nepro goal 30 cc an hour. Famotidine for GI prophylaxis Docusate sodium/Senokot for bowel regimen. MiraLAX and lactulose Avoid hepatotoxic medications. Trending downward. Check CPK and hepatitis panel - negative : Bonilla will be placed for accurate I's and O's in a critically ill patient Endo: Diabetes mellitus with neuropathy Hyperglycemia At home on insulin detemir 10 units twice a day with sliding scale insulin. on sliding scale insulin with Accu-Cheks every 6 hours to maintain euglycemia/ high regimen Novulog Renal: Acute kidney injury in the setting of Chronic kidney disease stage 4 - AIN versus medication Creatinine currently down trending 99/4. UO >5L on Bumex gtt. Nephrology Dr. Blackmon Urine eosinophils - 0-2 and electrolytes FeNa 0.4 Renal ultrasound 12/14 indicative of medical renal disease with atrophied right kidney Monitor urine output. Accurate I's and O's Noted LIZANDRO 1-80 last admission/speckled. Heme: Normocytic anemia Monitor CBC daily ID: Continue per Presalin and Levaquin. DCd Vancomycin 12/17 UA negative/, sputum neg to date. Blood cultures 12/14 and 12/15 negative to date. Negative urine pneumococcal and Legionella antigens FEN: Hypocalcemia Hyponatremia Hyperphosphatemia Replace electrolytes as clinically indicated per ICU likely protocol Phosphorus elevated 5.9, PTH elevated 705.7, vitamin D /25 pending and vitamin D 25 -12.3 LOW. Replacement to be ordered by Dr. Blackmon Likely from underlying renal disease. Replace calcium today 2G IV. On Calcium acetate per nephro Access Left IJ CVL day #5 place 12/14 Prophylaxis - GI -famotidine - DVT - SCD/heparin subcutaneous Critical Care: The total critical care time was 45 minutes. Time to perform other separately billable procedures was not included in the critical care time. Patient remains critically, with severe hypoxemic respiratory failure and multiorgan failure. Kathie Gastelum MD Dec 18, 2016 08:55
[2016-12-18] MEDS: JUVEN POWDER 1 PACK G-TUBE SCH ×2 (09:00→20:14)
[2016-12-18] MEDS: UMECLIDINIUM 62.5 MCG/VILANTEROL 25 MCG INHALER INH SCH (09:00)
[2016-12-18] MEDS: ARTIFICIAL TEARS OPTH SOLN 15 ML BTL EACH EYE SCH ×3 (09:00→17:00)
[2016-12-18] MEDS: LACTULOSE SYRUP 20 GM/30 ML CUP OG-TUBE SCH ×2 (09:00→20:13)
[2016-12-18] MEDS: DOCUSATE SODIUM 50 MG/SENNA 8.6 MG TAB PO SCH ×2 (09:00→20:13)
[2016-12-18] MEDS: POLYETHYLENE GLYCOL 17 GM PKG OG-TUBE SCH ×2 (09:00→20:13)
--- NOTE | 2016-12-18 09:18 | HHI.NPPN ---
Subjective History of Present Illness 60 y/o female pt with whom we follow in outpatient setting. PMH of COPD, HTN, DM and hyperlipidemia, she also has CKD IV , due to diabetic nephropathy. Her baseline creatinine measures 1.9, GFR 28. She came in for shortness of breath for days. She was hypoxic on arrival and intubated for airway protection. Interval History Excellent urine output. Renal function has improved slightly. Remains on the ventilator. Objective Data Data 12/18/16 12/19/16 18:59 06:59 Output Total 35 ml Balance -35 ml Output Urine Total 35 ml # Bowel Movements 1 Vital Signs Date Time Temp Pulse Resp B/P (MAP) Pulse Ox O2 Delivery O2 Flow Rate FiO2 12/18/16 08:20 92 50 12/18/16 06:00 57 177/79 (111) 172/81 (111) 12/18/16 06:00 54 12/18/16 06:00 54 135/65 (88) 138/73 (94) 12/18/16 04:32 93 55 12/18/16 04:00 55 12/18/16 04:00 51 12/18/16 04:00 97.7 51 16 135/65 (88) 93 152/65 (94) 12/18/16 02:00 54 12/18/16 00:14 57 185/74 12/18/16 00:00 55 12/18/16 00:00 57 12/18/16 00:00 57 177/79 (111) 172/81 (111) 12/18/16 00:00 97.8 57 16 177/79 (111) 95 172/81 (111) 12/17/16 23:48 95 55 12/17/16 22:00 59 12/17/16 21:05 94 55 12/17/16 20:00 98.1 66 16 190/85 (120) 95 198/83 (121) 12/17/16 20:00 55 12/17/16 20:00 66 12/17/16 18:00 70 167/74 (105) 187/80 (115) 12/17/16 18:00 70 12/17/16 16:00 98.0 67 16 179/81 (113) 95 194/83 (120) 12/17/16 16:00 67 12/17/16 16:00 55 12/17/16 15:46 93 60 12/17/16 14:00 83 12/17/16 12:00 98.7 74 16 167/75 (105) 96 190/80 (116) 12/17/16 12:00 74 190/80 (116) 167/75 (105) 12/17/16 12:00 55 12/17/16 12:00 83 12/17/16 11:09 96 55 12/17/16 10:00 83 -: 12/18/16 0525 12/18/16 0525 Physical Exam Eyes Eye Exam: Pupils Equal Neck Neck Exam: Neck Supple Pulmonary Resp Exam: Breath Sounds Equal, No Distress, Rhonchi, Decreased Bases, Diminished Breath Sounds Cardiology CV Exam: Regular, Normal Sinus Rhythm Gastrointestinal/Abdomen GI Exam: Soft, Non-Tender, Distended Extremeties Extremities Exam: Moderate Edema, Pitting Edema Neurologic Neuro Exam: Sedated Assessment/Plan Problem List: (1) Acute renal failure ICD Codes: N17.9 - Acute kidney failure, unspecified Status: Acute Plan: baseline CKD 3-4, creatinine 1.8 KAILEE may be due to sepsis and decreased renal perfusion; may have progressed to ATN. Urine output has improved after initiation of Bumex drip. Renal function has improved, no immediate need for dialysis. Avoid nephrotoxic agents. (2) HCAP (healthcare-associated pneumonia) ICD Codes: J18.9 - Healthcare-associated pneumonia Status: Acute Plan: Patient is on Levaquin, Zosyn and Vancomycin. Dose medications appropriate to her renal status. Carefully monitor Vancomycin dosing and levels, avoid levels above 20. (3) Acute respiratory failure ICD Codes: J96.00 - Acute respiratory failure Status: Acute Plan: s/p intubation , being treated for Pneumonia (4) DM (diabetes mellitus) ICD Codes: E11.9 - Type 2 diabetes mellitus without complications Status: Chronic Plan: continue insulin therapy goal 140-180 mg/dL (5) Hypocalcemia ICD Codes: E83.51 - Hypocalcemia Plan: PTH is high. She has secondary hyperparathyroidism in the presence of hyperphosphatemia and hypocalcemia. I have started Calcium acetate to be given via her feeding tube. Hypocalcemia persists. One dose of Calcium gluconate. Add Vitamin D3. Add Calcitriol. Problem Qualifiers (1) Acute renal failure: Qualified Codes: N17.9 - Acute kidney failure, unspecified (2) Acute respiratory failure: Qualified Codes: J96.01 - Acute respiratory failure with hypoxia; J96.02 - Acute respiratory failure with hypercapnia (3) DM (diabetes mellitus): Qualified Codes: E13.9 - Other specified diabetes mellitus without complications Thomas Blackmon MD Dec 18, 2016 09:17
[2016-12-18 09:29] LABS: BLOOD GAS BASE EXCESS -0.5 mmol/L (-2-2); BLOOD GAS CARBOXYHEMOGLOBIN 1.5 % (0-4); BLOOD GAS HCO3 24 mmol/L (22-26); BLOOD GAS METHEMOGLOBIN 1.2 % (0-2); BLOOD GAS O2 HGB SATURATION 90 % (90-100); BLOOD GAS OXYGEN CONTENT 10.9 Vol % (12.0-20.0); BLOOD GAS PCO2 43 mmHg (38-42); BLOOD GAS PO2 70 mmHg (61-120); BLOOD GAS TOTAL HGB 8.5 G/DL (12.0-16.0); CRITICAL VALUE NO; TEMP CORR TO 98.6
[2016-12-18 09:30] LABS: DRAW SITE ART; FIO2 50 %; OXYGEN DEVICE VENT; STAT NO; VENT SETTINGS PC/AC P28/PEEP12/R16
[2016-12-18] MEDS ORDERED: CALCIUM GLUCONATE 10% 1 GM/10 ML VIAL IV PUSH ONE (09:30)
[2016-12-18] MEDS: POTASSIUM CHLOR 20 MEQ PREMIX 100 ML IV SCH ×2 (09:40→11:28)
[2016-12-18] MEDS: CALCIUM ACETATE 667 MG CAP PO SCH ×3 (09:40→17:00)
[2016-12-18] MEDS: ARTIFICIAL TEARS OPTH OINT 3.5 APPLIC/3.5 GM TUBO EACH EYE SCH ×2 (09:42→20:14)
[2016-12-18] MEDS: CHLORHEXIDINE 0.12% (ORAL KIT) 15 ML CUP MT SCH ×2 (09:42→20:00)
[2016-12-18] MEDS: FAMOTIDINE 20 MG/2 ML VIAL IV PUSH SCH ×2 (09:42→20:13)
[2016-12-18] MEDS: SODIUM CHLORIDE 0.9% FLUSH 10 ML FLUSH IV FLUSH SCH ×2 (09:42→20:13)
[2016-12-18] MEDS: SODIUM CHLORIDE 0.9% FLUSH 10 ML FLUSH IVF SCH (09:44)
[2016-12-18] MEDS ORDERED: CALCIUM CHLORIDE INJ 2 GM in DEXTROSE 5% IN WATER 100ML INJ 100 ML IV ONE ×2 (11:30)
[2016-12-18] MEDS: CALCITRIOL 0.25 MCG CAP NG SCH (11:42)
[2016-12-18] MEDS: CHOLECALCIFEROL (VIT D3) 1000 UNIT TAB NG SCH (11:43)
[2016-12-18] MEDS: fentaNYL DRIP 250 ML IV PRN (17:30)
--- NOTE | 2016-12-18 18:59 | HHI.PR ---
Subjective Remarks Sedated and on the vent at 50 % FIo2 . CXR shows mild vascular congestion On a Bumex drip. ABG's are poor. Has thick secretions . Objective Vital Signs Date Time Temp Pulse Resp B/P (MAP) Pulse Ox O2 Delivery O2 Flow Rate FiO2 12/18/16 18:00 55 162/79 (106) 181/80 (113) 12/18/16 18:00 55 12/18/16 18:00 53 12/18/16 16:12 93 50 12/18/16 16:00 53 32 143/70 (94) 93 161/77 (105) 12/18/16 16:00 50 12/18/16 16:00 53 12/18/16 15:00 49 18 165/69 (101) 96 12/18/16 14:00 53 12/18/16 14:00 53 10 118/68 (85) 93 130/61 (84) 12/18/16 13:00 53 16 150/69 (96) 90 12/18/16 12:33 55 55 12/18/16 12:00 55 12/18/16 12:00 51 129/65 (86) 148/69 (95) 12/18/16 12:00 97.6 51 16 129/65 (86) 91 148/69 (95) 12/18/16 12:00 51 12/18/16 11:00 50 16 151/67 (95) 91 12/18/16 10:00 50 16 124/63 (83) 92 141/65 (90) 12/18/16 10:00 50 12/18/16 09:00 51 16 142/64 (90) 92 12/18/16 08:20 92 50 12/18/16 08:00 51 12/18/16 08:00 55 12/18/16 08:00 51 16 118/61 (80) 91 137/61 (86) 12/18/16 07:00 97.5 53 16 143/63 (89) 93 12/18/16 06:00 57 177/79 (111) 172/81 (111) 12/18/16 06:00 54 12/18/16 06:00 54 135/65 (88) 138/73 (94) 12/18/16 04:32 93 55 12/18/16 04:00 55 12/18/16 04:00 51 12/18/16 04:00 97.7 51 16 135/65 (88) 93 152/65 (94) 12/18/16 02:00 54 12/18/16 00:14 57 185/74 12/18/16 00:00 55 12/18/16 00:00 57 12/18/16 00:00 57 177/79 (111) 172/81 (111) 12/18/16 00:00 97.8 57 16 177/79 (111) 95 172/81 (111) 12/17/16 23:48 95 55 12/17/16 22:00 59 12/17/16 21:05 94 55 12/17/16 20:00 98.1 66 16 190/85 (120) 95 198/83 (121) 12/17/16 20:00 55 12/17/16 20:00 66 I/O 12/17/16 12/17/16 12/17/16 12/18/16 12/18/16 12/18/16 07:00 15:00 23:00 07:00 15:00 23:00 Intake Total 945 ml 3246 ml 790 ml 1209 ml Output Total 800 ml 1850 ml 2125 ml 1060 ml 157 ml 48 ml Balance 145 ml -1850 ml 1121 ml -1060 ml 633 ml 1161 ml Intake IV Total 705 ml 2273 ml 790 ml 893 ml Tube Feeding 240 ml 672 ml 316 ml Other 301 ml Output Urine Total 800 ml 1850 ml 2125 ml 1060 ml 157 ml 48 ml Stool Total 0 ml # Bowel Movements 1 Result Diagram: 12/18/1652412/18/16524 Objective Remarks PHYSICAL EXAMINATION GENERAL: This is a middle-aged obese white female who is intubated, sedated, assisting the ventilator. HEENT: Normocephalic. Pupils reactive and equal. Tongue is moist. Nasal mucosae clear. Throat Secretions are noted. NECK: Supple. No bruits or thyroid enlargement or lymphadenopathy. Trachea midline. CHEST: Equal movements with scattered wheezes and there are prolonged expirations, a few crackles at the bases. HEART: The heart sounds are irregular, S1-S2. No murmur. No S3. ABDOMEN: Soft and slightly distended. Bowel sounds are active. No organomegaly. EXTREMITIES: Varicosities and minimal edema. Reflexes are 1+. NEUROLOGIC: The patient is sedated. SKIN: Negative. Assessment and Plan Assessment and Plan IMPRESSION 1. Hypercapnic respiratory failure. 2. Severe COPD with emphysema. 3. History of diabetes mellitus. 4. Hypertension. 5. History of obstructive sleep apnea. 6. CKD 1V/KAILEE Plan : 1. Continue on Vent support and wean FIO2 . 2. Cont Antibiotics. 3. Bumex Drip as ordered. 4. Nebs q6h with duoneb 5. CBC,BMP in am 6. Tube feeds at 40 CC 7. Solumedrol 40 mg IV Q8H 8. Keep sedated with Diprivan/Fentanyl Heidi Villareal MD Dec 18, 2016 18:59
[2016-12-18] MEDS: hydrALAZINE HCL 20 MG/ML VIAL IV PUSH PRN ×2 (20:16→23:07)
[2016-12-18] MEDS: INSULIN DETEMIR 100 UNITS/ML VIAL SQ SCH (21:00)
[2016-12-18] MEDS: MIDAZOLAM 100 MG/100 ML INJ 100 ML IV PRN (21:49)
[2016-12-19] VITALS (24 sets, daily range): BP systolic 113–174; BP diastolic 57–75; PULSE 63–78; RESP 11–32; TEMP 98–98.9; O2SAT 90–97
[2016-12-19] MEDS: hydrALAZINE HCL 20 MG/ML VIAL IV PUSH PRN ×6 (00:26→22:19)
[2016-12-19] MEDS: PIPERACIL-TAZO 2.25 GM PREMIX 50 ML IV SCH ×3 (01:37→17:31)
[2016-12-19] MEDS: SODIUM CHLOR 0.9% 1000 ML INJ 1,000 ML IV SCH (03:00)
[2016-12-19] MEDS: RESP: ALBUTEROL 2.5 MG/IPRATROPIUM 0.5 MG NEB (SCH) INH ×5 (03:37→23:24)
[2016-12-19] MEDS: CHLORHEXIDINE GLUCONATE 2 % 1 PACK (2 CLOTHS) TOP SCH (04:00)
[2016-12-19] MEDS: INSULIN ASPART SUPPLEMENTAL SCALE SQ SCH ×6 (04:00→20:00)
[2016-12-19] MEDS: HEPARIN SODIUM - SQ 10,000 UNITS/ML VIAL SQ SCH ×2 (05:00→16:29)
--- NOTE | 2016-12-19 05:32 | RADRPT ---
EXAM DATE/TIME: 12/19/2016 03:24 [place] COMPARISON: CHEST SINGLE AP, December 18, 2016, 6:04. INDICATIONS : Short of breath. MEDICAL HISTORY : None. SURGICAL HISTORY : None. ENCOUNTER: Subsequent ACUITY: 4 - 6 days PAIN SCORE: 0/10 LOCATION: Bilateral chest FINDINGS: Stable ETT and suctioned type nasogastric catheter. Cardiac silhouette is enlarged with prominence of the central pulmonary vasculature. Improved aeration in the right lower lung zone with continued lef t lower lobe airspace disease and likely trace pleural effusion. Remainder of exam is unchanged. CONCLUSION: 1. Cardiomegaly with mild positive fluid balance. 2. Improved right lower lobe aeration. 3. Stable left lower lobe airspace disease and likely trace pleural effusion. Dereck Bang MD on December 19, 2016 at 5:29 Board Certified Radiologist. This report was verified electronically.
[2016-12-19] MEDS: methylPREDNISolone SOD SUCC 40 MG/1 ML VIAL IV PUSH SCH ×4 (05:33→22:19)
[2016-12-19] MEDS: cloNIDine HCL 0.3 MG TAB PO SCH ×3 (05:33→22:19)
[2016-12-19] MEDS: NIFEdipine 20 MG CAP PO SCH ×3 (05:33→22:19)
[2016-12-19] MEDS: hydrALAZINE HCL 100 MG TAB PO SCH ×3 (05:33→22:19)
[2016-12-19] MEDS: HYDROmorphone HCL 2 MG TAB PO SCH ×4 (05:35→22:20)
[2016-12-19] MEDS: ISOSORBIDE DINITRATE 10 MG TAB PO SCH ×3 (05:35→22:00)
[2016-12-19] MEDS: BUMETANIDE INJ 100 ML IV SCH (06:00)
[2016-12-19 06:18] LABS: AUTOMATED NEUTROPHIL # 8.1 TH/MM3 (1.8-7.7); BASOPHIL % 0.1 % (0.0-2.0); HEMATOCRIT 28.2 % (35.0-46.0); HEMO FLAGS DIFF FINAL; LYMPH % 1.4 % (9.0-44.0); LYMPHOCYTE # 0.1 TH/MM3 (1.0-4.8); MEAN CELL VOLUME 89.3 FL (80.0-100.0); MEAN CORPUSCULAR HEMOGLOBIN 29.3 PG (27.0-34.0); MEAN CORPUSCULAR HGB CONC 32.8 % (32.0-36.0); MONO % 3.8 % (0.0-8.0); NEUT % 94.7 % (16.0-70.0); PLATELET COUNT 210 TH/MM3 (150-450); RED BLOOD COUNT 3.15 MIL/MM3 (4.00-5.30); RED CELL DISTRIBUTION WIDTH 14.4 % (11.6-17.2); WHITE BLOOD COUNT 8.5 TH/MM3 (4.0-11.0)
[2016-12-19] MEDS: fentaNYL DRIP 250 ML IV PRN ×2 (07:22→18:20)
[2016-12-19] MEDS: PROPOFOL 1000 MG/100 ML INJ 100 ML IV PRN ×2 (07:22→14:48)
[2016-12-19] MEDS: CHLORHEXIDINE 0.12% (ORAL KIT) 15 ML CUP MT SCH ×2 (07:23→20:00)
[2016-12-19 07:39] LABS: BICARBONATE 24.9 MEQ/L (21.0-32.0); MAGNESIUM 2.2 MG/DL (1.5-2.5); POTASSIUM 3.9 MEQ/L (3.5-5.1); TOTAL BILIRUBIN ADULT 0.3 MG/DL (0.2-1.0)
[2016-12-19 07:44] LABS: CALCIUM-PROTEIN CORRECTED 7.4 MG/DL (8.5-10.1)
[2016-12-19] MEDS: RESP: BUDESONIDE 0.5 MG/2 ML NEB NEB SCH ×2 (08:13→20:20)
[2016-12-19] MEDS: INSULIN DETEMIR 100 UNITS/ML VIAL SQ SCH ×2 (08:51→20:23)
[2016-12-19] MEDS: CHOLECALCIFEROL (VIT D3) 1000 UNIT TAB NG SCH (08:52)
[2016-12-19] MEDS: CALCIUM ACETATE 667 MG CAP PO SCH ×3 (08:52→17:31)
[2016-12-19] MEDS: CALCITRIOL 0.25 MCG CAP NG SCH (08:52)
[2016-12-19] MEDS: DOCUSATE SODIUM 50 MG/SENNA 8.6 MG TAB PO SCH ×2 (08:53→20:21)
[2016-12-19] MEDS: POLYETHYLENE GLYCOL 17 GM PKG OG-TUBE SCH ×2 (08:53→20:22)
[2016-12-19] MEDS: LACTULOSE SYRUP 20 GM/30 ML CUP OG-TUBE SCH ×2 (08:53→20:22)
[2016-12-19] MEDS: SODIUM CHLORIDE 0.9% FLUSH 10 ML FLUSH IVF SCH (08:55)
[2016-12-19] MEDS: SODIUM CHLORIDE 0.9% FLUSH 10 ML FLUSH IV FLUSH SCH ×2 (08:55→20:22)
[2016-12-19] MEDS: UMECLIDINIUM 62.5 MCG/VILANTEROL 25 MCG INHALER INH SCH (08:55)
[2016-12-19] MEDS: FAMOTIDINE 20 MG/2 ML VIAL IV PUSH SCH ×2 (08:55→20:22)
[2016-12-19] MEDS: LEVOFLOXACIN 500 MG PREMIX INJ 100 ML IV SCH (08:56)
[2016-12-19] MEDS: ARTIFICIAL TEARS OPTH OINT 3.5 APPLIC/3.5 GM TUBO EACH EYE SCH ×2 (08:56→20:23)
[2016-12-19] MEDS: ARTIFICIAL TEARS OPTH SOLN 15 ML BTL EACH EYE SCH ×3 (08:56→17:30)
[2016-12-19] MEDS: JUVEN POWDER 1 PACK G-TUBE SCH ×2 (08:56→20:22)
[2016-12-19] MEDS: MIDAZOLAM 100 MG/100 ML INJ 100 ML IV PRN ×2 (10:17→18:21)
--- NOTE | 2016-12-19 11:53 | HHI.CCPN ---
Subjective Remarks/Hospital Course 61-year-old female. Date of admission 12/14/2016. Past records includes COPD/oxygen dependent, obstructive sleep apnea not using nocturnal CPAP , hypertension, morbid obesity. Hypertension, chronic kidney disease stage IV. She presents to [facility] 2 day history of shortness of breath.. She is essentially in extremis 100 hour troponin emergency report. She is immediately placed on BiPAP however failed and was emergently endotracheally intubated. She required 100% FiO2 and was intermittently hypotensive the ED. CT head negative. Chest x-ray revealed possible vascular congestion. She is also noted of a calcium of 5.0. Elevated creatinine 5.1 with a baseline 1.9. she received 2 g calcium chloride and she received 20 mg IV Lasix. Clinical Transplant Coordinator discontinued IV fluids and starting Bumex at 2 mg IV twice a day. 2-D echocardiogram revealed hyperdynamic state with EF of 65-70%. 12/15: - Afebrile. Off all vasopressors. 700 cc urine overnight. She is responding to fluids. Currently on midazolam drip. We'll attempt sedation vacation today if FiO2 decreased to around 50%. Subjective 12/16: Afebrile. Off all vasopressors. 1300 cc urine output past 24 hours. Nonoliguric. Currently on Versed and fentanyl drips. Moving all 4 extremities spontaneous. Will briefly attempt sedation vacation day but resedate BRIANA. 12/17: Patient had to be neuromuscularly paralyzed due to high peak pressures and hypoventilation. Started on Bumex drip overnight. Currently on 70% fio2, 10 PEEP , due to severe hypoxia. BUN/Creat 108/5, but urine output is adequate on Bumex drip-Nephrology wants to wait 24 hours prior to HD. Chest exam reveals severe bilateral expiratory wheezing 12/18: Patient remains critically severely hypoxemic. Good response to Bumex gtt. 5.1 L urine output in 24 hours. BUN/creatinine trending down 99/4. Potassium being replaced. Continue to wean FiO2 as tolerated remains on 55% with 12 of PEEP. I will discontinue neuromuscular blockade today 12/19: Remains critically ill but stable. FiO2 remains at 50%, PEEP just earliest 8. Urine output more than 2 L on Bumex infusion but BUN is increased to 111 creatinine stable at 4. Discussed with nephrology DC Bumex infusion and start scheduled Bumex 1 mg every 8 hours Objective Vital Signs Date Time Temp Pulse Resp B/P (MAP) Pulse Ox O2 Delivery O2 Flow Rate FiO2 12/19/16 08:14 95 50 12/19/16 06:00 68 138/66 (90) 154/73 (100) 12/19/16 04:00 98.2 17 Intake and Output 12/19/16 12/19/16 12/19/16 07:59 15:59 23:59 Intake Total 1360 ml 265 ml Output Total 1700 ml 89 ml Balance -340 ml 176 ml Result Diagram: 12/19/16 0500 12/19/16 0500 Imaging Last Impressions Chest X-Ray 12/15/16 0000 Signed Impressions: Service Date/Time: Thursday, December 15, 2016 03:58 - CONCLUSION: 1. Support apparatus in good position. Bilateral airspace consolidation. Freddie Tubbs MD Renal Ultrasound 12/14/16 0000 Signed Impressions: Service Date/Time: Wednesday, December 14, 2016 18:21 - CONCLUSION: Medical renal disease with echogenic kidneys. There is some atrophy of the right kidney. Nirav Camacho MD Head CT 12/14/16 0000 Signed Impressions: Service Date/Time: Wednesday, December 14, 2016 17:38 - CONCLUSION: Negative for an acute process. Sander Resendiz MD FACR Objective Remarks GENERAL: 60-year-old female, critically ill orotracheally intubated SKIN: Warm and dry. No rash. Poor skin turgor. HEAD: Atraumatic. Normocephalic. EYES: Pupils equal and round about 3 mm bilaterally and reactive. No scleral icterus. No injection or drainage. ENT: No nasal bleeding or discharge. Mucous membranes pink and moist. NECK: Trachea midline. No JVD. Left IJ is clean dry and intact CARDIOVASCULAR: Regular rate and rhythm. S1, S2 no S4. RESPIRATORY: Diminished breath sounds throughout. Symmetrical excursion. Bilateral mild wheezing GASTROINTESTINAL: Abdomen soft, non-tender, protuberant. Active bowel sounds are appreciated MUSCULOSKELETAL: Extremities without significant peripheral edema. No obvious deformities. NEUROLOGICAL: Intubated heavily sedated with propofol fentanyl and Versed. Opens eyes to sternal rub, very slight withdrawal to painful stimuli Date of Insertion: Dec 14, 2016 Line: Central Venous Catheter Side: Left Location: Internal, Jugular A/P Assessment and Plan Neuro/Psych: Toxic metabolic Encephalopathy - likely metabolic/CO2 retention Restless like syndrome Diabetic neuropathy Versed drip at 10 mg an hour/250 mcg/h fentanyl drips for sedation/analgesia while intubated Start lightening sedation with eventual sedation vacation Scheduled Dilaudid started 12/17/16 due to persistent hypertension responding to fentanyl bolus Nimbex for NM paralysis Dcd 12/18 CT brain 12/14 revealed no acute intracranial findings Acetaminophen for fever, Holding gabapentin 300 mg 3 times a day in light of altered mental status CV: Uncontrolled hypertension History of hypertension History dyslipidemia Off all pressors currently receiving antihypertensives Home medications include lisinopril 5 mill grams daily, metoprolol 50 mill grams twice a day, clonidine 0.1 mg 3 times a day, nifedipine 60 mill grams every 12 hours, Imdur 30 mg daily and hydralazine 100 mg 3 times daily. Currently on hydralazine 100 3 times a day,Isordil mill grams 3 times a day. Procardia at 40mg every 8 hours and clonidine 0.3 milligram TID Cardene infusion to keep systolic blood pressure less than 160 As needed hydralazine IV EKG showed normal sinus rhythm. No acute ST-T changes. Specifically no QT prolongation setting of hypocalcemia Echocardiogram 2016 EF 55-60%. No regional wall motion abnormality. LEXIE- 61 mmHg. Mild MR. Echocardiogram 12/14/16 - EF 65-70%. No regional wall motion abnormality. Hyperdynamic state Resp: Acute hypoxemic respiratory failure Severe COPD/O2 dependent, with acute exacerbation HERACLIO/no CPAP at home PC/AC 16/Pinsp 28/0.87/-Change to PRVC AC with PEEP 8 Ventilator bundle, Budesonide 0.5 mg/2 mL one inhalation twice a day Keep vent rate less than 16 breaths per minute to avoid entrapping, patient has very prolonged expiratory phase Tolerate hypercapnia, tolerate pH 7.2. Albuterol/ipratropium every 4 hours with albuterol hours is every 2 hours when necessary Goal keep SPO2 around 88, Methylprednisolone 40 mg IV every 6 hours At home Anoro Ellipta 62.5/25 one inhalation daily and Symbicort 160/4.5 2 puffs every 12 hours with as needed albuterol Chest x-ray revealed possible pulmonary edema with bilateral lower lobe infiltrate/atelectasis Flolan Dcd 12/17/16 GI: Elevated transaminases Nepro. Famotidine for GI prophylaxis Docusate sodium/Senokot for bowel regimen. MiraLAX and lactulose Avoid hepatotoxic medications. Trending downward. CPK and hepatitis panel - negative : Bonilla will be placed for accurate I's and O's in a critically ill patient Endo: Diabetes mellitus with neuropathy Hyperglycemia At home on insulin detemir 10 units twice a day with sliding scale insulin. on sliding scale insulin with Accu-Cheks every 6 hours to maintain euglycemia/ high regimen Novulog Renal: Acute kidney injury in the setting of Chronic kidney disease stage 4 - AIN versus medication BUN/cr 111/4. UO >5L on Bumex gtt cahnge to Bumex 1 mg IV q8 12/[address] Blackmon Urine eosinophils - 0-2 and electrolytes FeNa 0.4 Renal ultrasound 12/14 indicative of medical renal disease with atrophied right kidney Monitor urine output. Accurate I's and O's Noted LIZANDRO 1-80 last admission/speckled. Heme: Normocytic anemia Monitor CBC daily ID: Continue per Zosyn and Levaquin. DCd Vancomycin 12/17 UA negative/, sputum neg to date. Blood cultures 12/14 and 12/15 negative to date. Negative urine pneumococcal and Legionella antigens FEN: Hypocalcemia Hyponatremia Hyperphosphatemia Replace electrolytes as clinically indicated per ICU likely protocol Phosphorus elevated 5.9, PTH elevated 705.7, vitamin D 1/25 pending and vitamin D 25 -12.3 LOW. Replacement to be ordered by Dr. Blackmon Likely from underlying renal disease. Replace calcium IV as needed. On Calcium acetate per nephro Access Left IJ CVL day #6 place 12/14 Prophylaxis - GI -famotidine - DVT - SCD/heparin subcutaneous Critical Care: The total critical care time was 45 minutes. Time to perform other separately billable procedures was not included in the critical care time. Patient remains critically, with severe hypoxemic respiratory failure and multiorgan failure. Kathie Gastelum MD Dec 19, 2016 11:53
[2016-12-19] MEDS: BUMETANIDE INJ 1 MG/4 ML VIAL IV PUSH SCH ×2 (13:21→17:30)
--- NOTE | 2016-12-19 13:21 | HHI.NPPN ---
Subjective Renal Failure: Chronic, Acute Interval History She remains intubated, unresponsive. On Bumex gtt as of this morning. Minimal urine output. (Tootie Grant) Review of Systems General General Remarks unable to obtain (Tootie Grant) Objective Data Data 12/19/16 12/20/16 18:59 06:59 Intake Total 265 ml Output Total 352 ml Balance -87 ml Intake IV Total 265 ml Output Urine Total 352 ml Vital Signs Date Time Temp Pulse Resp B/P (MAP) Pulse Ox O2 Delivery O2 Flow Rate FiO2 12/19/16 12:29 94 50 12/19/16 12:00 65 133/70 (91) 151/73 (99) 12/19/16 12:00 50 12/19/16 11:00 64 16 144/70 (94) 93 166/74 (104) 12/19/16 10:00 50 12/19/16 10:00 65 17 141/67 (91) 96 162/71 (101) 12/19/16 10:00 65 12/19/16 09:00 67 16 128/61 (83) 95 147/64 (91) 12/19/16 08:14 95 50 12/19/16 08:00 98.1 72 17 129/61 (83) 92 135/63 (87) 12/19/16 08:00 72 12/19/16 08:00 50 12/19/16 07:00 70 13 120/61 (80) 91 134/66 (88) 12/19/16 06:00 68 138/66 (90) 154/73 (100) 12/19/16 06:00 68 12/19/16 04:09 93 50 12/19/16 04:00 98.2 65 17 152/70 (97) 93 174/75 (108) 12/19/16 04:00 50 12/19/16 04:00 65 12/19/16 02:00 63 12/19/16 00:50 92 50 12/19/16 00:00 65 12/19/16 00:00 98.0 65 32 156/73 (100) 92 171/67 (101) 12/19/16 00:00 50 12/19/16 00:00 65 156/73 (100) 171/67 (101) 12/18/16 22:16 92 50 12/18/16 22:00 63 12/18/16 20:00 62 12/18/16 20:00 97.8 62 22 157/77 (103) 93 176/71 (106) 12/18/16 20:00 50 12/18/16 19:35 93 50 12/18/16 18:00 55 162/79 (106) 181/80 (113) 12/18/16 18:00 55 12/18/16 18:00 53 12/18/16 16:12 93 50 12/18/16 16:00 53 32 143/70 (94) 93 161/77 (105) 12/18/16 16:00 50 12/18/16 16:00 53 12/18/16 15:00 49 18 165/69 (101) 96 12/18/16 14:00 53 12/18/16 14:00 53 10 118/68 (85) 93 130/61 (84) (Tootie Grant) -: 12/19/16 0500 12/19/16 0500 Imaging Last 72 hours Impressions Chest X-Ray 12/19/16 0600 Signed Impressions: Service Date/Time: Monday, December 19, 2016 03:24 - CONCLUSION: 1. Cardiomegaly with mild positive fluid balance. 2. Improved right lower lobe aeration. 3. Stable left lower lobe airspace disease and likely trace pleural effusion. Dereck Bang MD Chest X-Ray 12/18/16 0600 Signed Impressions: Service Date/Time: Sunday, December 18, 2016 06:04 - CONCLUSION: 1. Stable tubes and lines, as above. 2. Cardiomegaly with positive fluid bones. 3. Stable bilateral lower lung zone airspace disease and probable trace left pleural effusion. Dereck Bang MD Chest X-Ray 12/17/16 0800 Signed Impressions: Service Date/Time: Saturday, December 17, 2016 08:05 - CONCLUSION: Slight improved aeration of the right lung base otherwise stable. Kenny Nails MD Chest X-Ray 12/17/16 0000 Signed Impressions: Service Date/Time: Saturday, December 17, 2016 01:57 - CONCLUSION: No significant change. Small effusion and mild consolidation again noted of both bases. Nirav Savage MD Tubes & Lines: [place]illa Tubes & Lines Comment A line right wrist; TLC left IJ Drip Comment fentanyl, propofol (Tootie Grant PRODUCTION CONTROL COORDINATING CLERK) Physical Exam General Appearance: Well Developed, Comfortable, Obese (Tootie Grant B. PRODUCTION CONTROL COORDINATING CLERK) Eyes Eye Exam: Pupils Equal (Tootie Grant BSelwyn PRODUCTION CONTROL COORDINATING CLERK) Throat Throat Exam: Oral Mucosa [place] & Moist (Tootie Grant PRODUCTION CONTROL COORDINATING CLERK) Neck Neck Exam: Neck Supple (Tootie Grant B. PRODUCTION CONTROL COORDINATING CLERK) Pulmonary Resp Exam: Breath Sounds Equal, No Distress, Rhonchi, Decreased Bases, Diminished Breath Sounds Resp Remarks vented lung sounds (Tootie Grant PRODUCTION CONTROL COORDINATING CLERK) Cardiology CV Exam: Regular, Normal Sinus Rhythm (Tootie Grant BSelwyn PRODUCTION CONTROL COORDINATING CLERK) Gastrointestinal/Abdomen GI Exam: Soft, Non-Tender, Bowel Sounds Present, Distended (Tootie Grant PRODUCTION CONTROL COORDINATING CLERK) Musculoskeletal MS Exam: Joints Intact, Normal Tone, Unable to Ambulate (Tootie Grant PRODUCTION CONTROL COORDINATING CLERK) Integumentary Skin Exam: Warm, Dry (Tootie Grant PRODUCTION CONTROL COORDINATING CLERK) Extremeties Extremities Exam: Pedal Pulses Palpable, Moderate Edema, Pitting Edema (Tootie Grant PRODUCTION CONTROL COORDINATING CLERK) Neurologic Neuro Exam: Unresponsive, Sedated (Tootie Grant) Assessment/Plan Assessment Summary: KAILEE/Acute Renal Failure, Fluid/Volume Overload, Diabetes Mellitus Problem List: (1) Acute renal failure ICD Codes: N17.9 - Acute kidney failure, unspecified Status: Acute Plan: baseline CKD 3-4, creatinine 1.8 KAILEE may be due to sepsis and decreased renal perfusion; may have progressed to ATN. renal function improved slightly; high BUN may be due to steroids minimal response to bumex gtt; it was stopped; started on TID 1 mg IV Bumex dosage monitor response. she may require dialysis if no improvement repeat renal panel in AM follow urine otuput Avoid nephrotoxic agents. (2) HCAP (healthcare-associated pneumonia) ICD Codes: J18.9 - Healthcare-associated pneumonia Status: Acute Plan: Patient is on Levaquin and Zosyn Vancomycin was stopped Dose medications appropriate to her renal status. (3) Acute respiratory failure ICD Codes: J96.00 - Acute respiratory failure Status: Acute Plan: s/p intubation , being treated for Pneumonia (4) DM (diabetes mellitus) ICD Codes: E11.9 - Type 2 diabetes mellitus without complications Status: Chronic Plan: continue insulin therapy goal 140-180 mg/dL (5) Hypocalcemia ICD Codes: E83.51 - Hypocalcemia Plan: PTH is high. She has secondary hyperparathyroidism, with hyperphosphatemia and hypocalcemia. She is on Calcium acetate TID via her feeding tube. Hypocalcemia persists. on Vitamin D3 and calcitriol (Tootie Grant) Problem List: (1) Acute renal failure ICD Codes: N17.9 - Acute kidney failure, unspecified Status: Acute Plan: baseline CKD 3-4, creatinine 1.8 KAILEE may be due to sepsis and decreased renal perfusion; may have progressed to ATN. renal function improved slightly; high BUN may be due to steroids minimal response to bumex gtt; it was stopped; started on TID 1 mg IV Bumex dosage monitor response. she may require dialysis if no improvement repeat renal panel in AM follow urine otuput Avoid nephrotoxic agents. (2) HCAP (healthcare-associated pneumonia) ICD Codes: J18.9 - Healthcare-associated pneumonia Status: Acute Plan: Patient is on Levaquin and Zosyn Vancomycin was stopped Dose medications appropriate to her renal status. (3) Acute respiratory failure ICD Codes: J96.00 - Acute respiratory failure Status: Acute Plan: s/p intubation , being treated for Pneumonia (4) DM (diabetes mellitus) ICD Codes: E11.9 - Type 2 diabetes mellitus without complications Status: Chronic Plan: continue insulin therapy goal 140-180 mg/dL (5) Hypocalcemia ICD Codes: E83.51 - Hypocalcemia Plan: PTH is high. She has secondary hyperparathyroidism, with hyperphosphatemia and hypocalcemia. She is on Calcium acetate TID via her feeding tube. Hypocalcemia persists. on Vitamin D3 and calcitriol Plan patient was seen and examined. Agree with above assessment and plan. BUN is higher. Creatinine unchanged compared to yesterday. Changed Bumex drip to intermittent Bumex. Monitor urine output and renal function. May need dialysis soon. (Thomas Blackmon MD) Problem Qualifiers (1) Acute renal failure: Qualified Codes: N17.9 - Acute kidney failure, unspecified (2) Acute respiratory failure: Qualified Codes: J96.01 - Acute respiratory failure with hypoxia; J96.02 - Acute respiratory failure with hypercapnia (3) DM (diabetes mellitus): Qualified Codes: E13.9 - Other specified diabetes mellitus without complications Tootie Grant Dec 19, 2016 13:21 Thomas Blackmon MD Dec 19, 2016 22:23
--- NOTE | 2016-12-19 19:33 | HHI.PR ---
Subjective Remarks Sedated and on the vent at 50 % FIo2 . CXR shows mild vascular congestion On a Bumex drip. ABG's are poor. Has no fever. Objective Vital Signs Date Time Temp Pulse Resp B/P (MAP) Pulse Ox O2 Delivery O2 Flow Rate FiO2 12/19/16 18:00 72 13 120/62 (81) 92 140/66 (90) 12/19/16 18:00 72 120/62 (81) 140/66 (90) 12/19/16 18:00 72 12/19/16 17:00 76 11 130/68 (88) 90 151/66 (94) 12/19/16 16:00 78 12/19/16 16:00 50 12/19/16 16:00 98.9 78 16 125/65 (85) 94 155/69 (97) 12/19/16 15:51 97 50 12/19/16 15:00 69 18 118/64 (82) 94 140/68 (92) 12/19/16 14:20 19 12/19/16 14:00 76 19 115/57 (76) 93 113/62 (79) 12/19/16 14:00 78 12/19/16 13:00 73 18 136/69 (91) 94 151/73 (99) 12/19/16 12:29 94 50 12/19/16 12:00 65 133/70 (91) 151/73 (99) 12/19/16 12:00 98.2 65 16 133/70 (91) 92 151/73 (99) 12/19/16 12:00 65 12/19/16 12:00 50 12/19/16 11:00 64 16 144/70 (94) 93 166/74 (104) 12/19/16 10:00 50 12/19/16 10:00 65 17 141/67 (91) 96 162/71 (101) 12/19/16 10:00 65 12/19/16 09:00 67 16 128/61 (83) 95 147/64 (91) 12/19/16 08:14 95 50 12/19/16 08:00 98.1 72 17 129/61 (83) 92 135/63 (87) 12/19/16 08:00 72 12/19/16 08:00 50 12/19/16 07:00 70 13 120/61 (80) 91 134/66 (88) 12/19/16 06:00 68 138/66 (90) 154/73 (100) 12/19/16 06:00 68 12/19/16 04:09 93 50 12/19/16 04:00 98.2 65 17 152/70 (97) 93 174/75 (108) 12/19/16 04:00 50 12/19/16 04:00 65 12/19/16 02:00 63 12/19/16 00:50 92 50 12/19/16 00:00 65 12/19/16 00:00 98.0 65 32 156/73 (100) 92 171/67 (101) 12/19/16 00:00 50 12/19/16 00:00 65 156/73 (100) 171/67 (101) 12/18/16 22:16 92 50 12/18/16 22:00 63 12/18/16 20:00 62 12/18/16 20:00 97.8 62 22 157/77 (103) 93 176/71 (106) 12/18/16 20:00 50 12/18/16 19:35 93 50 I/O 12/18/16 12/18/16 12/18/16 12/19/16 12/19/16 12/19/16 07:00 15:00 23:00 07:00 15:00 23:00 Intake Total 572 ml 790 ml 1459 ml 1360 ml 265 ml 1183 ml Output Total 1060 ml 157 ml 175 ml 1700 ml 359 ml 70 ml Balance -488 ml 633 ml 1284 ml -340 ml -94 ml 1113 ml Intake IV Total 790 ml 993 ml 1150 ml 265 ml 744 ml Tube Feeding 322 ml 316 ml 439 ml Other 250 ml 150 ml 210 ml Output Urine Total 1060 ml 157 ml 175 ml 1700 ml 359 ml 70 ml # Bowel Movements 1 0 Result Diagram: 12/19/16 0500 12/19/16 0500 Objective Remarks PHYSICAL EXAMINATION GENERAL: This is a middle-aged obese white female who is intubated, sedated, assisting the ventilator. HEENT: Normocephalic. Pupils reactive and equal. Tongue is moist. Nasal mucosae clear. Thick Secretions are noted. NECK: Supple. No bruits or thyroid enlargement or lymphadenopathy. Trachea midline. CHEST: Equal movements with scattered wheezes and prolonged expirations, a few crackles at the bases. HEART: The heart sounds are irregular, S1-S2. No murmur. No S3. ABDOMEN: Soft and slightly distended. Bowel sounds are active. No organomegaly. EXTREMITIES: Varicosities and minimal edema. Reflexes are 1+. NEUROLOGIC: The patient is sedated. SKIN: Negative. Assessment and Plan Assessment and Plan IMPRESSION 1. Hypercapnic respiratory failure. 2. Severe COPD with emphysema. 3. History of diabetes mellitus. 4. Hypertension. 5. History of obstructive sleep apnea. 6. CKD 1V/KAILEE Plan : 1. Continue on Vent support and wean FIO2 . 2. Cont Antibiotics. 3. Bumex per nephrology 4. Nebs q6h with duoneb 5. CBC,BMP in am 6. Tube feeds at 40 CC 7. Cont Solumedrol 40 mg IV Q6H 8. Keep sedated with Diprivan/Fentanyl 9. CXR in am. Heidi Villareal MD Dec 19, 2016 19:33
[2016-12-20] VITALS (21 sets, daily range): BP systolic 92–171; BP diastolic 57–78; PULSE 60–80; RESP 16–22; TEMP 97.5–99; O2SAT 92–100
[2016-12-20] MEDS: PIPERACIL-TAZO 2.25 GM PREMIX 50 ML IV SCH ×3 (01:29→18:19)
[2016-12-20] MEDS: RESP: ALBUTEROL 2.5 MG/IPRATROPIUM 0.5 MG NEB (SCH) INH ×6 (02:51→22:51)
[2016-12-20] MEDS: SODIUM CHLOR 0.9% 1000 ML INJ 1,000 ML IV SCH (03:00)
[2016-12-20] MEDS: CHLORHEXIDINE GLUCONATE 2 % 1 PACK (2 CLOTHS) TOP SCH (04:00)
[2016-12-20] MEDS: INSULIN ASPART SUPPLEMENTAL SCALE SQ SCH ×6 (04:00→20:00)
[2016-12-20] MEDS: methylPREDNISolone SOD SUCC 40 MG/1 ML VIAL IV PUSH SCH ×3 (06:00→18:21)
[2016-12-20] MEDS: ISOSORBIDE DINITRATE 10 MG TAB PO SCH ×3 (06:00→21:21)
[2016-12-20] MEDS: HYDROmorphone HCL 2 MG TAB PO SCH ×3 (06:00→18:00)
[2016-12-20] MEDS: hydrALAZINE HCL 100 MG TAB PO SCH ×3 (06:07→21:21)
[2016-12-20] MEDS: NIFEdipine 20 MG CAP PO SCH ×3 (06:07→21:21)
[2016-12-20] MEDS: cloNIDine HCL 0.3 MG TAB PO SCH ×3 (06:07→21:21)
[2016-12-20] MEDS: HEPARIN SODIUM - SQ 10,000 UNITS/ML VIAL SQ SCH ×2 (06:07→16:19)
[2016-12-20 06:11] LABS: AUTOMATED NEUTROPHIL # 7.3 TH/MM3 (1.8-7.7); BASOPHIL % 0.3 % (0.0-2.0); HEMATOCRIT 27.6 % (35.0-46.0); HEMO FLAGS DIFF FINAL; LYMPH % 2.4 % (9.0-44.0); LYMPHOCYTE # 0.2 TH/MM3 (1.0-4.8); MEAN CELL VOLUME 91.5 FL (80.0-100.0); MEAN CORPUSCULAR HGB CONC 32.8 % (32.0-36.0); NEUT % 91.3 % (16.0-70.0); PLATELET COUNT 203 TH/MM3 (150-450); RED BLOOD COUNT 3.02 MIL/MM3 (4.00-5.30); RED CELL DISTRIBUTION WIDTH 15.2 % (11.6-17.2)
[2016-12-20] MEDS: fentaNYL DRIP 250 ML IV PRN ×2 (06:21→18:18)
[2016-12-20] MEDS: MIDAZOLAM 100 MG/100 ML INJ 100 ML IV PRN ×2 (06:21→18:16)
--- NOTE | 2016-12-20 06:53 | RADRPT ---
EXAM DATE/TIME: 12/20/2016 05:16 [place] COMPARISON: CHEST SINGLE AP, December 19, 2016, 3:24. INDICATIONS : Respiratory status. MEDICAL HISTORY : None. SURGICAL HISTORY : None. ENCOUNTER: Subsequent ACUITY: 4 - 6 days PAIN SCORE: Non-responsive. LOCATION: Bilateral chest FINDINGS: Stable ETT, NGT, and left IJ central line. Lungs are hypoaerated with continued bilateral lower lobe patchy airspace disease. Cardiomediastinal contours are stable with indistinct central pulmonary vasc ulature. Remainder of the exam is unchanged. CONCLUSION: 1. Stable tubes and lines, as above. 2. Low lung volumes with stable bilateral lower lobe air space disease. 3. No significant interval change. Dereck Bang MD on December 20, 2016 at 6:50 Board Certified Radiologist. This report was verified electronically.
[2016-12-20 07:12] LABS: BICARBONATE 25.7 MEQ/L (21.0-32.0); POTASSIUM 4.5 MEQ/L (3.5-5.1); TOTAL BILIRUBIN ADULT 0.3 MG/DL (0.2-1.0)
[2016-12-20 07:27] LABS: CALCIUM-PROTEIN CORRECTED 6.1 MG/DL (8.5-10.1)
[2016-12-20] MEDS ORDERED: SODIUM CHLOR 0.9% 1000 ML INJ 1,000 ML IV PRN (08:05)
[2016-12-20] MEDS ORDERED: SODIUM CHLOR 0.9% 1000 ML INJ 1,000 ML OTHER PRN ×2 (08:05)
[2016-12-20] MEDS: RESP: BUDESONIDE 0.5 MG/2 ML NEB NEB SCH ×2 (08:06→20:08)
[2016-12-20] MEDS ORDERED: ONDANSETRON HCL 4 MG/2 ML VIAL IV PRN (08:15)
[2016-12-20] MEDS ORDERED: SODIUM CHLORIDE 0.9% FLUSH 10 ML FLUSH IV FLUSH PRN (08:15)
[2016-12-20] MEDS ORDERED: diphenhydrAMINE HCL 25 MG CAP PO PRN (08:15)
[2016-12-20] MEDS ORDERED: NITROGLYCERIN 0.4 MG SL 25 TABS/BTL SL PRN (08:15)
[2016-12-20] MEDS ORDERED: HEPARIN SODIUM - IV 10,000 UNITS/10 ML VIAL IVF PRN (08:15)
[2016-12-20] MEDS ORDERED: cloNIDine HCL 0.1 MG TAB PO PRN (08:15)
[2016-12-20] MEDS ORDERED: MANNITOL 12.5 GM/50 ML VIAL IV PRN (08:15)
[2016-12-20] MEDS ORDERED: GELATIN 12 MM/7 MM FOAM TOP PRN (08:15)
[2016-12-20] MEDS: CHLORHEXIDINE 0.12% (ORAL KIT) 15 ML CUP MT SCH ×2 (08:22→21:15)
[2016-12-20] MEDS: UMECLIDINIUM 62.5 MCG/VILANTEROL 25 MCG INHALER INH SCH (08:24)
[2016-12-20] MEDS: SODIUM CHLORIDE 0.9% FLUSH 10 ML FLUSH IV FLUSH SCH ×2 (08:25→21:20)
[2016-12-20] MEDS: ARTIFICIAL TEARS OPTH OINT 3.5 APPLIC/3.5 GM TUBO EACH EYE SCH ×2 (08:26→21:19)
[2016-12-20] MEDS: BUMETANIDE INJ 1 MG/4 ML VIAL IV PUSH SCH ×3 (08:26→18:19)
[2016-12-20] MEDS: JUVEN POWDER 1 PACK G-TUBE SCH ×2 (08:27→21:00)
[2016-12-20] MEDS: CALCITRIOL 0.25 MCG CAP NG SCH (08:27)
[2016-12-20] MEDS: CALCIUM ACETATE 667 MG CAP PO SCH ×3 (08:27→18:00)
[2016-12-20] MEDS: INSULIN DETEMIR 100 UNITS/ML VIAL SQ SCH ×2 (08:28→21:00)
[2016-12-20] MEDS: POLYETHYLENE GLYCOL 17 GM PKG OG-TUBE SCH ×2 (08:29→21:20)
[2016-12-20] MEDS: LACTULOSE SYRUP 20 GM/30 ML CUP OG-TUBE SCH ×2 (08:30→21:20)
[2016-12-20] MEDS: DOCUSATE SODIUM 50 MG/SENNA 8.6 MG TAB PO SCH ×2 (08:30→21:21)
[2016-12-20] MEDS: ARTIFICIAL TEARS OPTH SOLN 15 ML BTL EACH EYE SCH ×3 (08:32→18:00)
--- NOTE | 2016-12-20 08:43 | HHI.CCPN ---
Subjective Remarks/Hospital Course 61-year-old female. Date of admission 12/14/2016. Past records includes COPD/oxygen dependent, obstructive sleep apnea not using nocturnal CPAP , hypertension, morbid obesity. Hypertension, chronic kidney disease stage IV. She presents to [facility] 2 day history of shortness of breath. She is essentially in extremis 100 hour troponin emergency report. She is immediately placed on BiPAP however failed and was emergently endotracheally intubated. She required 100% FiO2 and was intermittently hypotensive the ED. CT head negative. Chest x-ray revealed possible vascular congestion. She is also noted of a calcium of 5.0. Elevated creatinine 5.1 with a baseline 1.9. she received 2 g calcium chloride and she received 20 mg IV Lasix. 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 2-D echocardiogram revealed hyperdynamic state with EF of 65-70%. 12/15: - Afebrile. Off all vasopressors. 700 cc urine overnight. She is responding to fluids. Currently on midazolam drip. We'll attempt sedation vacation today if FiO2 decreased to around 50%. Subjective 12/16: Afebrile. Off all vasopressors. 1300 cc urine output past 24 hours. Nonoliguric. Currently on Versed and fentanyl drips. Moving all 4 extremities spontaneous. Will briefly attempt sedation vacation day but resedate BRIANA. 12/17: Patient had to be neuromuscularly paralyzed due to high peak pressures and hypoventilation. Started on Bumex drip overnight. Currently on 70% fio2, 10 PEEP , due to severe hypoxia. BUN/Creat 108/5, but urine output is adequate on Bumex drip-Nephrology wants to wait 24 hours prior to HD. Chest exam reveals severe bilateral expiratory wheezing 12/18: Patient remains critically severely hypoxemic. Good response to Bumex gtt. 5.1 L urine output in 24 hours. BUN/creatinine trending down 99/4. Potassium being replaced. Continue to wean FiO2 as tolerated remains on 55% with 12 of PEEP. I will discontinue neuromuscular blockade today 12/19: Remains critically ill but stable. FiO2 remains at 50%, PEEP just earliest 8. Urine output more than 2 L on Bumex infusion but BUN is increased to 111 creatinine stable at 4. Discussed with nephrology DC Bumex infusion and start scheduled Bumex 1 mg every 8 hours 12/20: Requiring high FiO2 at 60% without improvement remains critically ill. Worsening BUN/creatinine today 136/4.6. Urine output 1 L in 24 hours. We'll start hemodialysis today after placing Vas-Cath. Patient not tolerating sedation vacation due to ventilator synchrony Objective Vital Signs Date Time Temp Pulse Resp B/P (MAP) Pulse Ox O2 Delivery O2 Flow Rate FiO2 12/20/16 08:01 92 50 12/20/16 06:00 76 126/64 (84) 145/66 (92) 12/20/16 04:00 98.4 16 Intake and Output 12/20/16 12/20/16 12/21/16 08:00 16:00 00:00 Output Total 332 ml Balance -332 ml Result Diagram: 12/20/16 0540 12/20/16 0540 Imaging Last Impressions Chest X-Ray 12/15/16 0000 Signed Impressions: Service Date/Time: Thursday, December 15, 2016 03:58 - CONCLUSION: 1. Support apparatus in good position. Bilateral airspace consolidation. Freddie Tubbs MD Renal Ultrasound 12/14/16 0000 Signed Impressions: Service Date/Time: Wednesday, December 14, 2016 18:21 - CONCLUSION: Medical renal disease with echogenic kidneys. There is some atrophy of the right kidney. Nirav Cmaacho MD Head CT 12/14/16 0000 Signed Impressions: Service Date/Time: Wednesday, December 14, 2016 17:38 - CONCLUSION: Negative for an acute process. Sander Resendiz MD FACR Objective Remarks GENERAL: 60-year-old female, critically ill orotracheally intubated SKIN: Warm and dry. No rash. Poor skin turgor. HEAD: Atraumatic. Normocephalic. EYES: Pupils equal and round about 3 mm bilaterally and reactive. No scleral icterus. No injection or drainage. ENT: No nasal bleeding or discharge. Mucous membranes pink and moist. Orotracheally intubated NECK: Trachea midline. No JVD. Left IJ is clean dry and intact CARDIOVASCULAR: Regular rate and rhythm. S1, S2 no S4. RESPIRATORY: Diminished breath sounds throughout. Symmetrical excursion. Bilateral moderate wheezing GASTROINTESTINAL: Abdomen soft, non-tender, protuberant. Active bowel sounds are appreciated MUSCULOSKELETAL: Extremities without significant peripheral edema. No obvious deformities. NEUROLOGICAL: Intubated heavily sedated with propofol fentanyl and Versed. Opens eyes to sternal rub, very slight withdrawal to painful stimuli Date of Insertion: Dec 14, 2016 Line: Central Venous Catheter Side: Left Location: Internal, Jugular A/P Assessment and Plan Neuro/Psych: Toxic metabolic Encephalopathy - likely metabolic/CO2 retention Restless like syndrome Diabetic neuropathy Continue Versed fentanyl and propofol infusions. Unable to do sedation vacation due to ventilator synchrony and desaturation Scheduled Dilaudid started 12/17/16 due to persistent hypertension responding to fentanyl bolus Nimbex for NM paralysis Dcd 12/18. Use when necessary neuromuscular blockade CT brain 12/14 revealed no acute intracranial findings Acetaminophen for fever, Holding gabapentin 300 mg 3 times a day in light of altered mental status CV: Uncontrolled hypertension History of hypertension History dyslipidemia Off all pressors currently receiving antihypertensives Currently on hydralazine 100 3 times a day,Isordil mill grams 3 times a day. Procardia at 40mg every 8 hours and clonidine 0.3 milligram TID Home medications include lisinopril 5 mill grams daily, metoprolol 50 mill grams twice a day, clonidine 0.1 mg 3 times a day, nifedipine 60 mill grams every 12 hours, Imdur 30 mg daily and hydralazine 100 mg 3 times daily. Cardene infusion to keep systolic blood pressure less than 160. As needed hydralazine IV EKG showed normal sinus rhythm. No acute ST-T changes. Specifically no QT prolongation setting of hypocalcemia Echocardiogram 2015 EF 55-60%. No regional wall motion abnormality. LEXIE- 61 mmHg. Mild MR. Echocardiogram 12/14/16 - EF 65-70%. No regional wall motion abnormality. Hyperdynamic state Resp: Acute hypoxemic respiratory failure Severe COPD/O2 dependent, with acute exacerbation HERACLIO/no CPAP at home Probable community-acquired pneumonia PRVC AC with PEEP 10. FiO2 60%. Wean to keep Sat >88% (chronic COPD on home oxygen) Ventilator bundle, Budesonide 0.5 mg/2 mL one inhalation twice a day Keep vent rate less than 16 breaths per minute to avoid air trapping, patient has very prolonged expiratory phase Tolerate hypercapnia, tolerate pH 7.2. Albuterol/ipratropium every 4 hours with albuterol hours is every 2 hours when necessary Methylprednisolone 40 mg IV every 6 hours At home Anoro Ellipta 62.5/25 one inhalation daily and Symbicort 160/4.5 2 puffs every 12 hours with as needed albuterol Chest x-ray revealed possible pulmonary edema with bilateral lower lobe infiltrate/atelectasis Flolan Dcd 12/17/16 Does not meet criteria for SBT due to high event and FiO2 requirements Not clinically stable for tracheostomy at this time, but more than likely she will need trach GI: Elevated transaminases Nepro. Famotidine for GI prophylaxis Docusate sodium/Senokot for bowel regimen. MiraLAX and lactulose Avoid hepatotoxic medications. Trending downward. CPK and hepatitis panel - negative Had BM 12/19 : Bonilla will be placed for accurate I's and O's in a critically ill patient Endo: Diabetes mellitus with neuropathy Hyperglycemia At home on insulin detemir 10 units twice a day with sliding scale insulin. on sliding scale insulin with Accu-Cheks every 6 hours to maintain euglycemia/ high regimen Novulog Renal: Acute kidney injury in the setting of Chronic kidney disease stage 4 - AIN versus medication BUN/cr 136/4.6 with diminishing urine output. On Bumex 1 mg IV q8 12/19. Discussed with Dr. Blackmon. Place Vascath for HD today Urine eosinophils - 0-2 and electrolytes FeNa 0.4 Renal ultrasound 12/14 indicative of medical renal disease with atrophied right kidney Monitor urine output. Accurate I's and O's Noted LIZANDRO 1-80 last admission/speckled. Heme: Normocytic anemia Monitor CBC daily ID: Probable community-acquired pneumonia Continue per Zosyn and Levaquin. DCd Vancomycin 12/17 UA negative/, sputum neg to date. Blood cultures 12/14 and 12/15 negative to date. Negative urine pneumococcal and Legionella antigens FEN: Hypocalcemia Hyponatremia Hyperphosphatemia Replace electrolytes as clinically indicated per ICU likely protocol Phosphorus elevated 5.9, PTH elevated 705.7, vitamin D 1/25 pending and vitamin D 25 -12.3 LOW. Replacement to be ordered by Dr. Blackmon Likely from underlying renal disease. Replace calcium IV as needed. On Calcium acetate per nephro Access Left IJ CVL day #7 place 12/14 Prophylaxis - GI -famotidine - DVT - SCD/heparin subcutaneous Critical Care: The total critical care time was 40 minutes. Time to perform other separately billable procedures was not included in the critical care time. Patient remains critically, with severe hypoxemic respiratory failure and multiorgan failure. Kathie Gastelum MD Dec 20, 2016 08:43
[2016-12-20] MEDS ORDERED: ROCURONIUM INJ 50 MG/5 ML VIAL IV ONE (08:45)
--- NOTE | 2016-12-20 08:48 | HHI.NPPN ---
Subjective Renal Failure: Chronic, Acute Interval History remains on the ventilator. On FiO2 of 50 %. Renal function is worse. Review of Systems General General Remarks unable to obtain Objective Data Data Vital Signs Date Time Temp Pulse Resp B/P (MAP) Pulse Ox O2 Delivery O2 Flow Rate FiO2 12/20/16 08:01 92 50 12/20/16 06:00 76 126/64 (84) 145/66 (92) 12/20/16 06:00 76 12/20/16 06:00 77 129/61 (83) 156/66 (96) 12/20/16 05:00 60 12/20/16 04:29 94 60 12/20/16 04:00 98.4 71 16 124/64 (84) 95 144/65 (91) 12/20/16 04:00 71 12/20/16 02:00 71 12/20/16 00:21 93 50 12/20/16 00:00 50 12/20/16 00:00 98.6 77 22 129/61 (83) 92 156/66 (96) 12/20/16 00:00 77 12/20/16 00:00 77 129/61 (83) 156/66 (96) 12/19/16 22:00 69 12/19/16 20:20 92 50 12/19/16 20:00 50 12/19/16 20:00 98.7 70 19 132/66 (88) 92 153/67 (95) 12/19/16 20:00 70 12/19/16 18:00 72 13 120/62 (81) 92 140/66 (90) 12/19/16 18:00 72 120/62 (81) 140/66 (90) 12/19/16 18:00 72 12/19/16 17:00 76 11 130/68 (88) 90 151/66 (94) 12/19/16 16:00 78 12/19/16 16:00 50 12/19/16 16:00 98.9 78 16 125/65 (85) 94 155/69 (97) 12/19/16 15:51 97 50 12/19/16 15:00 69 18 118/64 (82) 94 140/68 (92) 12/19/16 14:20 19 12/19/16 14:00 76 19 115/57 (76) 93 113/62 (79) 12/19/16 14:00 78 12/19/16 13:00 73 18 136/69 (91) 94 151/73 (99) 12/19/16 12:29 94 50 12/19/16 12:00 65 133/70 (91) 151/73 (99) 12/19/16 12:00 98.2 65 16 133/70 (91) 92 151/73 (99) 12/19/16 12:00 65 12/19/16 12:00 50 12/19/16 11:00 64 16 144/70 (94) 93 166/74 (104) 12/19/16 10:00 50 12/19/16 10:00 65 17 141/67 (91) 96 162/71 (101) 12/19/16 10:00 65 12/19/16 09:00 67 16 128/61 (83) 95 147/64 (91) -: 12/20/16 0540 12/20/16 0540 Tubes & Lines: Bonilla Tubes & Lines Comment A line right wrist; TLC left IJ Drip Comment fentanyl, propofol Physical Exam General Appearance: Well Developed, Comfortable, Obese Eyes Eye Exam: Pupils Equal Throat Throat Exam: Oral Muc[place] & Moist Neck Neck Exam: Neck Supple Pulmonary Resp Exam: Breath Sounds Equal, No Distress, Rhonchi, Decreased Bases, Diminished Breath Sounds Cardiology CV Exam: Regular, Normal Sinus Rhythm Gastrointestinal/Abdomen GI Exam: Soft, Non-Tender, Bowel Sounds Present, Distended Musculoskeletal MS Exam: Joints Intact, Normal Tone, Unable to Ambulate Integumentary Skin Exam: Warm, Dry Extremeties Extremities Exam: Pedal Pulses Palpable, Moderate Edema, Pitting Edema Neurologic Neuro Exam: Unresponsive, Sedated Assessment/Plan Assessment Summary: KAILEE/Acute Renal Failure, Fluid/Volume Overload, Diabetes Mellitus Problem List: (1) Acute renal failure ICD Codes: N17.9 - Acute kidney failure, unspecified Status: Acute Plan: baseline CKD 3-4, creatinine 1.8 KAILEE may be due to sepsis and decreased renal perfusion; may have progressed to ATN. Renal function is worse. She is going to need dialysis. Discussed with Dr. Gastelum. Dialysis orders written. Once dialysis starts, may stop Bumex. (2) HCAP (healthcare-associated pneumonia) ICD Codes: J18.9 - Healthcare-associated pneumonia Status: Acute Plan: Patient is on Levaquin and Zosyn Vancomycin was stopped Dose medications appropriate to her renal status. (3) Acute respiratory failure ICD Codes: J96.00 - Acute respiratory failure Status: Acute Plan: s/p intubation , being treated for Pneumonia (4) DM (diabetes mellitus) ICD Codes: E11.9 - Type 2 diabetes mellitus without complications Status: Chronic Plan: continue insulin therapy goal 140-180 mg/dL (5) Hypocalcemia ICD Codes: E83.51 - Hypocalcemia Plan: PTH is high. She has secondary hyperparathyroidism, with hyperphosphatemia and hypocalcemia. She is on Calcium acetate TID via her feeding tube. Hypocalcemia persists. on Vitamin D3 and calcitriol Problem Qualifiers (1) Acute renal failure: Qualified Codes: N17.9 - Acute kidney failure, unspecified (2) Acute respiratory failure: Qualified Codes: J96.01 - Acute respiratory failure with hypoxia; J96.02 - Acute respiratory failure with hypercapnia (3) DM (diabetes mellitus): Qualified Codes: E13.9 - Other specified diabetes mellitus without complications Thomas Blackmon MD Dec 20, 2016 08:47
[2016-12-20] MEDS: FAMOTIDINE 20 MG/2 ML VIAL IV PUSH SCH ×2 (08:54→21:20)
[2016-12-20] MEDS: SODIUM CHLORIDE 0.9% FLUSH 10 ML FLUSH IVF SCH (08:55)
--- NOTE | 2016-12-20 08:56 | PQ ---
Physician Query Response Document PATIENT: BETHANIE FLORES : 1955 ADMIT DATE: 12/14/2016 3:55 PM DISCH DATE: RESPONDING PROVIDER #: [email or web address] QUERY TEXT: Conflicting Documentation Clarification Documentation of multiple diagnoses for the same clinical presentation appears in the record Please clarify the diagnosis/diagnoses - HEALTHCARE ASSOCIATED PNEUMONIA - STATED BY RENAL MD Please also document if the condition is: -- Confirmed and current -- Confirmed, treated and resolved -- Ruled out -- Other, please specify The patient's Clinical Indicators include: 12/14/16 Admission Diagnosis Acute respiratory failure PER H Severe COPD/O2 dependent HERACLIO/no CPAP at home PER 12/14/16 RENAL CONSULT ASSESSMENT AND PLAN: (2) HCAP (healthcare-associated pneumonia) ICD Codes: J18.9 - Healthcare-associated pneumonia Status: Acute Plan: ordered zosyn, zithromax, steroids continue ventilator support PER 12/18/16 CRITICAL CARE PROGRESS NOTE - Acute hypoxemic respiratory failure Severe COPD/O2 dependent, with acute exacerbation HERACLIO/no CPAP at home Query created by: Shelley Jain on 12/19/2016 7:04 AM RESPONSE TEXT: Probable community acquired pneumonia Electronically signed by: Kathie Gastelum MD 12/20/2016 8:52 AM
[2016-12-20] MEDS ORDERED: CALCIUM GLUCONATE 500 MG TAB PO SCH (09:00)
[2016-12-20] MEDS ORDERED: CALCIUM GLUCONATE INJ 2 GM in DEXTROSE 5% IN WATER 100ML INJ 100 ML IV ONE ×2 (10:00)
[2016-12-20] MEDS: CHOLECALCIFEROL (VIT D3) 1000 UNIT TAB NG SCH (10:40)
[2016-12-20] MEDS ORDERED: VANCOMYCIN INJ 1,250 MG in SODIUM CHLOR 0.9% 250 ML INJ 250 ML IV ONE (11:00)
--- NOTE | 2016-12-20 12:27 | PD.PROCEDR ---
Central Line Procedure REASON FOR PROCEDURE Central venous access PROCEDURE PERFORMED Central line placement: RIJ Vascath placement with US CONSENT Informed consent for procedure was obtained [ ]. The risks and benefits of the procedure were discussed to include but limited to bleeding, clot formation, infection, and even . ANESTHESIA Local injection of 1% Lidocaine DESCRIPTION OF THE PROCEDURE The patient was placed in supine, mild Trendelenburg position. The area was exposed and cleansed with ChloraPrep, times two. Large sterile drape was used to cover the patient, with the site exposed, under sterile conditions including cap, face mask, sterile gown, and sterile gloves. On single attempt, the introducer needle was inserted with negative pressure in syringe and venous flash was obtained. The guide wire was then advanced and the needle was removed. Due to body habitus/thick neck, two wires kinked with dilation. On third attempt, dilator passed without any complications. Using Seldinger technique the 20 CM 14 F catheter was advanced over the guide wire to a depth of 17 centimeters. The guide wire was removed. All ports were aspirated with dark venous blood return and flushed easily with sterile saline. All ports were capped. Antibiotic disc was placed around central line at puncture site. The central line was secured to the skin with two interrupted 2.0 silk sutures. The area was bandaged with sterile see-through central line bandage. RADIOLOGICAL DATA Ultrasound guidance was used to locate RIJ. COMPLICATIONS: No apparent complications ESTIMATED BLOOD LOSS: Less than 5 cc. Kathie Gastelum MD Dec 20, 2016 12:27
[2016-12-20 12:37] LABS: BLOOD GAS VENOUS HCO3 24 mmol/L (22-26); BLOOD GAS VENOUS O2 CONTENT 12.6 Vol % (9.0-17.0); BLOOD GAS VENOUS O2 HGB SAT 93 % (70-76); BLOOD GAS VENOUS PCO2 59 mmHg (44-48); BLOOD GAS VENOUS PO2 86 mmHg (35-40); BLOOD GAS VENOUS pH 7.22 (7.360-7.400); TEMP CORR TO 98.6
[2016-12-20 12:38] LABS: OXYGEN DEVICE VENTILATOR
[2016-12-20 12:39] LABS: DRAW SITE CENTRAL LINE; FIO2 100 %; STAT NO
[2016-12-20 12:56] LABS: BLOOD GAS BASE EXCESS -4.1 mmol/L (-2-2); BLOOD GAS CARBOXYHEMOGLOBIN 1.5 % (0-4); BLOOD GAS HCO3 22 mmol/L (22-26); BLOOD GAS METHEMOGLOBIN 1.7 % (0-2); BLOOD GAS O2 HGB SATURATION 97 % (90-100); BLOOD GAS OXYGEN CONTENT 13.1 Vol % (12.0-20.0); BLOOD GAS PCO2 54 mmHg (38-42); BLOOD GAS PO2 335 mmHg (61-120); CRITICAL VALUE YES; OXYGEN DEVICE VENTILATOR; TEMP CORR TO 98.6
[2016-12-20 12:57] LABS: DRAW SITE ART LINE; FIO2 100 %; STAT YES; VENT SETTINGS PRVC/AC
[2016-12-20 13:29] LABS: AUTOMATED NEUTROPHIL # 8.2 TH/MM3 (1.8-7.7); BASOPHIL % 0.1 % (0.0-2.0); EOSINOPHIL % 0.1 % (0.0-4.0); HEMATOCRIT 27.1 % (35.0-46.0); HEMO FLAGS DIFF FINAL; LYMPH % 3.2 % (9.0-44.0); LYMPHOCYTE # 0.3 TH/MM3 (1.0-4.8); MEAN CELL VOLUME 91.7 FL (80.0-100.0); MEAN CORPUSCULAR HEMOGLOBIN 29.8 PG (27.0-34.0); MEAN CORPUSCULAR HGB CONC 32.5 % (32.0-36.0); MONO % 5.7 % (0.0-8.0); NEUT % 90.9 % (16.0-70.0); PLATELET COUNT 185 TH/MM3 (150-450); RED BLOOD COUNT 2.96 MIL/MM3 (4.00-5.30)
[2016-12-20] MEDS: CALCIUM CARBONATE 1.25 GM (CA 500 MG) TAB PO SCH (13:44)
[2016-12-20 14:54] LABS: PTH RELATED PEPTIDE 0.5 pmol/L (<2.0)
--- NOTE | 2016-12-20 14:56 | RADRPT ---
EXAM DATE/TIME: 12/20/2016 13:02 [facility] COMPARISON: CHEST SINGLE AP, December 20, 2016, 5:16. INDICATIONS : Post central line. MEDICAL HISTORY : Chronic obstructive pulmonary disease. Renal insufficiency, chronic.Hypercholesterolemia. Rheumatoid arthritis. Diabetes. Restless leg syndrome. Hypertension. Osteoporosis. Renal calculi. Pneumonia. Javier cardial infarction. SURGICAL HISTORY : Hysterectomy. Tonsillectomy. Fusion, lumbar. Bilateral knee replacement. ENCOUNTER: Initial ACUITY: 1 week PAIN SCORE: Non-responsive. LOCATION: chest FINDINGS: The cardiac silhouette is enlarged in transverse diameter. Support lines and tubes are in satisfactor y position. A right sided internal jugular vein catheter is in place without pneumothorax with its ti p in the superior vena cava. There is prominence of the central pulmonary vasculature with indistinct vascular margins compatible with vascular congestion but no evidence of overt failure. CONCLUSION: 1. Uncomplicated line placement. No evidence of pneumothorax. Gustabo Dotson MD on December 20, 2016 at 14:54 Board Certified Radiologist. This report was verified electronically.
--- NOTE | 2016-12-20 18:19 | HHI.PR ---
Subjective Remarks Sedated and on the vent at 50 % FIo2 . CXR shows mild vascular congestion On dialysis now and 3 Kgs were removed. ABG's are better. Has no fever. sedated.with fentanyl/ Diprivan Objective Vital Signs Date Time Temp Pulse Resp B/P (MAP) Pulse Ox O2 Delivery O2 Flow Rate FiO2 12/20/16 16:26 97 70 12/20/16 16:00 98.9 67 16 92/57 (69) 97 104/64 (77) 12/20/16 16:00 67 12/20/16 16:00 50 12/20/16 14:00 70 16 124/58 (80) 99 159/74 (102) 12/20/16 14:00 66 12/20/16 13:00 77 16 132/61 (84) 100 167/78 (107) 12/20/16 12:00 50 12/20/16 12:00 80 12/20/16 12:00 99.0 80 16 125/59 (81) 99 156/70 (98) 12/20/16 12:00 80 125/59 (81) 156/70 (98) 12/20/16 11:24 93 50 12/20/16 11:00 71 16 118/57 (77) 93 146/70 (95) 12/20/16 10:00 50 12/20/16 10:00 71 12/20/16 10:00 71 16 118/59 (78) 92 147/71 (96) 12/20/16 09:00 71 16 117/62 (80) 92 134/65 (88) 12/20/16 08:01 92 50 12/20/16 08:00 50 12/20/16 08:00 70 12/20/16 08:00 97.5 70 16 118/67 (84) 141/64 (89) 12/20/16 06:00 76 126/64 (84) 145/66 (92) 12/20/16 06:00 76 12/20/16 06:00 77 129/61 (83) 156/66 (96) 12/20/16 05:00 60 12/20/16 04:29 94 60 12/20/16 04:00 98.4 71 16 124/64 (84) 95 144/65 (91) 12/20/16 04:00 71 12/20/16 02:00 71 12/20/16 00:21 93 50 12/20/16 00:00 50 12/20/16 00:00 98.6 77 22 129/61 (83) 92 156/66 (96) 12/20/16 00:00 77 12/20/16 00:00 77 129/61 (83) 156/66 (96) 12/19/16 22:00 69 12/19/16 20:20 92 50 12/19/16 20:00 50 12/19/16 20:00 98.7 70 19 132/66 (88) 92 153/67 (95) 12/19/16 20:00 70 I/O 12/19/16 12/19/16 12/19/16 12/20/16 12/20/16 12/20/16 07:00 15:00 23:00 07:00 15:00 23:00 Intake Total 1360 ml 265 ml 1243 ml 420 ml Output Total 1700 ml 359 ml 280 ml 382 ml 151 ml Balance -340 ml -94 ml 963 ml -382 ml 269 ml Intake IV Total 1150 ml 265 ml 744 ml 420 ml Tube Feeding 439 ml Other 210 ml 60 ml Output Urine Total 1700 ml 359 ml 280 ml 382 ml 151 ml # Bowel Movements 0 Result Diagram: 12/20/16 1250 12/20/16 0540 Objective Remarks PHYSICAL EXAMINATION GENERAL: This is a middle-aged obese white female who is intubated, sedated, assisting the ventilator. HEENT: Normocephalic. Pupils reactive and equal. Tongue is moist. Nasal mucosae clear. Thick Secretions are noted. NECK: Supple. No bruits or thyroid enlargement or lymphadenopathy. Trachea midline. CHEST: Equal movements with scattered wheezes and prolonged expirations,and few crackles at the bases. HEART: The heart sounds are irregular, S1-S2. No murmur. No S3. ABDOMEN: Soft and slightly distended. Bowel sounds are active. No organomegaly. EXTREMITIES: Varicosities and minimal edema. Reflexes are 1+. NEUROLOGIC: The patient is sedated. SKIN: Negative. Assessment and Plan Assessment and Plan IMPRESSION 1. Hypercapnic respiratory failure. 2. Severe COPD with emphysema. 3. History of diabetes mellitus. 4. Hypertension. 5. History of obstructive sleep apnea. 6. CKD 1V/KAILEE Plan : 1. Continue on Vent support and wean FIO2 . 2. Cont Antibiotics.per ID 3. Dialysis in am 4. Nebs q6h with duoneb 5. CBC,BMP in am 6. Tube feeds at 40 CC 7. Cont Solumedrol 40 mg IV Q8H 8. Keep sedated with Diprivan/Fentanyl 9. CPAP trial in am. Heidi Villareal MD Dec 20, 2016 18:19
[2016-12-21] VITALS (18 sets, daily range): BP systolic 102–186; BP diastolic 55–83; PULSE 59–94; RESP 16–35; TEMP 97.3–99; O2SAT 91–98
[2016-12-21] MEDS: methylPREDNISolone SOD SUCC 40 MG/1 ML VIAL IV PUSH SCH ×4 (00:19→21:14)
[2016-12-21] MEDS: PROPOFOL 1000 MG/100 ML INJ 100 ML IV PRN ×2 (00:19→13:42)
[2016-12-21] MEDS: HYDROmorphone HCL 2 MG TAB PO SCH ×5 (00:20→23:52)
[2016-12-21] MEDS: PIPERACIL-TAZO 2.25 GM PREMIX 50 ML IV SCH ×4 (01:39→23:53)
[2016-12-21] MEDS: SODIUM CHLOR 0.9% 1000 ML INJ 1,000 ML IV SCH (03:00)
[2016-12-21] MEDS: RESP: ALBUTEROL 2.5 MG/IPRATROPIUM 0.5 MG NEB (SCH) INH ×6 (03:06→23:16)
[2016-12-21] MEDS: CHLORHEXIDINE GLUCONATE 2 % 1 PACK (2 CLOTHS) TOP SCH (04:00)
[2016-12-21] MEDS: INSULIN ASPART SUPPLEMENTAL SCALE SQ SCH ×7 (04:00→23:53)
[2016-12-21] MEDS: HEPARIN SODIUM - SQ 10,000 UNITS/ML VIAL SQ SCH ×2 (04:29→16:42)
[2016-12-21] MEDS: hydrALAZINE HCL 100 MG TAB PO SCH ×3 (05:50→21:14)
[2016-12-21] MEDS: ISOSORBIDE DINITRATE 10 MG TAB PO SCH ×3 (05:50→21:14)
[2016-12-21] MEDS: cloNIDine HCL 0.3 MG TAB PO SCH ×3 (05:50→21:13)
[2016-12-21] MEDS: NIFEdipine 20 MG CAP PO SCH ×3 (05:50→21:14)
[2016-12-21 06:12] LABS: AUTOMATED NEUTROPHIL # 8.3 TH/MM3 (1.8-7.7); HEMATOCRIT 26.4 % (35.0-46.0); HEMO FLAGS DIFF FINAL; LYMPH % 1.1 % (9.0-44.0); LYMPHOCYTE # 0.1 TH/MM3 (1.0-4.8); MEAN CELL VOLUME 91.2 FL (80.0-100.0); MEAN CORPUSCULAR HEMOGLOBIN 29.5 PG (27.0-34.0); MEAN CORPUSCULAR HGB CONC 32.3 % (32.0-36.0); MONO % 2.3 % (0.0-8.0); NEUT % 96.6 % (16.0-70.0); PLATELET COUNT 159 TH/MM3 (150-450); RED CELL DISTRIBUTION WIDTH 14.8 % (11.6-17.2); WHITE BLOOD COUNT 8.6 TH/MM3 (4.0-11.0)
--- NOTE | 2016-12-21 06:47 | RADRPT ---
EXAM DATE/TIME: 12/21/2016 05:44 [facility] COMPARISON: CHEST SINGLE AP, December 20, 2016, 13:02. INDICATIONS : Evaluate for respiratory disease. MEDICAL HISTORY : Chronic obstructive pulmonary disease. Renal insufficiency, chronic.Hypercholesterolemia. Rheumatoid arthritis. Diabetes. Restless leg syndrome. Hypertension. Osteoporosis. Renal calculi. Pneumonia. Javier cardial infarction. SURGICAL HISTORY : Hysterectomy. Tonsillectomy. Fusion, lumbar. Bilateral knee replacement. ENCOUNTER: Subsequent ACUITY: 1 week PAIN SCORE: Non-responsive. LOCATION: chest FINDINGS: Stable ETT, right IJ central line, and NGT with tip only from the image. Interval mild bilateral lowe r lobe airspace disease. Cardiac silhouette is enlarged. Remainder of the exam is unchanged. CONCLUSION: 1. Stable tubes and lines, as above. 2. Interval mild bilateral lower lobe airspace disease, likely atelectasis. Dereck Bang MD on December 21, 2016 at 6:44 Board Certified Radiologist. This report was verified electronically.
[2016-12-21 06:54] LABS: BICARBONATE 29.1 MEQ/L (21.0-32.0); MAGNESIUM 2.4 MG/DL (1.5-2.5); POTASSIUM 4.2 MEQ/L (3.5-5.1); TOTAL BILIRUBIN ADULT 0.3 MG/DL (0.2-1.0)
[2016-12-21 07:02] LABS: CALCIUM-PROTEIN CORRECTED 6.8 MG/DL (8.5-10.1)
[2016-12-21] MEDS: fentaNYL DRIP 250 ML IV PRN ×2 (07:19→21:12)
[2016-12-21] MEDS: LEVOFLOXACIN 500 MG PREMIX INJ 100 ML IV SCH (08:30)
[2016-12-21] MEDS: CALCITRIOL 0.25 MCG CAP NG SCH (08:30)
[2016-12-21] MEDS: POLYETHYLENE GLYCOL 17 GM PKG OG-TUBE SCH ×2 (08:31→21:14)
[2016-12-21] MEDS: LACTULOSE SYRUP 20 GM/30 ML CUP OG-TUBE SCH ×2 (08:31→21:13)
[2016-12-21] MEDS: DOCUSATE SODIUM 50 MG/SENNA 8.6 MG TAB PO SCH ×2 (08:31→21:14)
[2016-12-21] MEDS: FAMOTIDINE 20 MG/2 ML VIAL IV PUSH SCH ×2 (08:31→21:13)
[2016-12-21] MEDS: CALCIUM ACETATE 667 MG CAP PO SCH ×3 (08:31→16:42)
[2016-12-21] MEDS: CALCIUM CARBONATE 1.25 GM (CA 500 MG) TAB PO SCH ×2 (08:31→21:13)
[2016-12-21] MEDS: SODIUM CHLORIDE 0.9% FLUSH 10 ML FLUSH IV FLUSH SCH ×2 (08:32→21:13)
[2016-12-21] MEDS: BUMETANIDE INJ 1 MG/4 ML VIAL IV PUSH SCH ×3 (08:32→18:04)
[2016-12-21] MEDS: CHLORHEXIDINE 0.12% (ORAL KIT) 15 ML CUP MT SCH ×2 (08:35→21:17)
[2016-12-21] MEDS: INSULIN DETEMIR 100 UNITS/ML VIAL SQ SCH ×2 (08:37→21:00)
[2016-12-21] MEDS: JUVEN POWDER 1 PACK G-TUBE SCH ×2 (08:40→21:00)
[2016-12-21] MEDS: UMECLIDINIUM 62.5 MCG/VILANTEROL 25 MCG INHALER INH SCH (08:40)
[2016-12-21] MEDS: ARTIFICIAL TEARS OPTH SOLN 15 ML BTL EACH EYE SCH ×3 (08:42→18:00)
[2016-12-21] MEDS: ARTIFICIAL TEARS OPTH OINT 3.5 APPLIC/3.5 GM TUBO EACH EYE SCH ×2 (08:42→21:15)
[2016-12-21] MEDS: RESP: BUDESONIDE 0.5 MG/2 ML NEB NEB SCH ×2 (08:45→19:48)
[2016-12-21] MEDS: CHOLECALCIFEROL (VIT D3) 1000 UNIT TAB NG SCH (08:59)
[2016-12-21] MEDS: SODIUM CHLORIDE 0.9% FLUSH 10 ML FLUSH IVF SCH (09:00)
[2016-12-21] MEDS ORDERED: CALCIUM CARBONATE 1.25 GM (CA 500 MG) TAB PO SCH (09:00)
--- NOTE | 2016-12-21 10:20 | HHI.NPPN ---
Subjective Renal Failure: Chronic, Acute Interval History She remains intubated, unresponsive. Dialysis was started yesterday. (Tootie Grant) Review of Systems General General Remarks unable to obtain (Tootie Grant) Objective Data Data 12/21/16 12/22/16 19:00 07:00 Intake Total 300 ml Balance 300 ml Intake IV Total 300 ml Vital Signs Date Time Temp Pulse Resp B/P (MAP) Pulse Ox O2 Delivery O2 Flow Rate FiO2 12/21/16 08:47 97 40 12/21/16 08:10 16 12/21/16 06:00 64 12/21/16 06:00 64 142/69 (93) 164/79 (107) 12/21/16 04:07 95 50 12/21/16 04:00 97.6 79 22 139/66 (90) 95 171/68 (102) 12/21/16 04:00 63 12/21/16 04:00 50 12/21/16 02:00 62 12/21/16 00:21 96 50 12/21/16 00:00 97.4 63 35 123/62 (82) 95 146/61 (89) 12/21/16 00:00 63 123/62 (82) 146/61 (89) 12/21/16 00:00 63 12/21/16 00:00 50 12/20/16 22:00 63 12/20/16 21:05 97 60 12/20/16 20:00 60 12/20/16 20:00 50 12/20/16 20:00 98.4 60 16 151/71 (97) 97 171/76 (107) 12/20/16 18:00 66 122/60 (80) 147/62 (90) 12/20/16 18:00 67 12/20/16 16:26 97 70 12/20/16 16:00 98.9 67 16 92/57 (69) 97 104/64 (77) 12/20/16 16:00 67 12/20/16 16:00 50 12/20/16 14:00 70 16 124/58 (80) 99 159/74 (102) 12/20/16 14:00 66 12/20/16 13:00 77 16 132/61 (84) 100 167/78 (107) 12/20/16 12:00 50 12/20/16 12:00 80 12/20/16 12:00 99.0 80 16 125/59 (81) 99 156/70 (98) 12/20/16 12:00 80 125/59 (81) 156/70 (98) 12/20/16 11:24 93 50 12/20/16 11:00 71 16 118/57 (77) 93 146/70 (95) (Tootie Grant) -: 12/21/16 0532 12/21/16 0532 Imaging Last Impressions Chest X-Ray 12/21/16 0600 Signed Impressions: Service Date/Time: Wednesday, December 21, 2016 05:44 - CONCLUSION: 1. Stable tubes and lines, as above. 2. Interval mild bilateral lower lobe airspace disease, likely atelectasis. Dereck Bang MD Liver Ultrasound 12/16/16 0000 Signed Impressions: Service Date/Time: Friday, December 16, 2016 15:25 - CONCLUSION: 1. The liver is prominent with no focal lesion or ascites. 2. The right kidney is small and atrophic in appearance with cortical thinning and no hydronephrosis. There is increased echogenicity most characteristic of medical renal disease. Dylan Bryant MD Renal Ultrasound 12/14/16 0000 Signed Impressions: Service Date/Time: Wednesday, December 14, 2016 18:21 - CONCLUSION: Medical renal disease with echogenic kidneys. There is some atrophy of the right kidney. Nirav Camacho MD Head CT 12/14/16 0000 Signed Impressions: Service Date/Time: Wednesday, December 14, 2016 17:38 - CONCLUSION: Negative for an acute process. Sander Resendiz MD FACR Tubes & Lines: Vas-Cath, Bonilla Tubes & Lines Comment A line right wrist; TLC left IJ Drip Comment fentanyl, propofol, versed (Tootie Grant) Physical Exam General Appearance: Well Developed, Comfortable, Obese Appearance Remarks intubated, unresponsive (Tootie Grant) Eyes Eye Exam: Pupils Equal (Tootie Grant) Throat Throat Exam: Oral Mucosa [place] & Moist (Tootie Grant) Neck Neck Exam: Neck Supple (Tootie Grant) Pulmonary Resp Exam: Breath Sounds Equal, No Distress, Rhonchi, Decreased Bases, Diminished Breath Sounds Resp Remarks vented lung sounds (Tootie Grant) Cardiology CV Exam: Regular, Normal Sinus Rhythm (Tootie Grant) Gastrointestinal/Abdomen GI Exam: Soft, Non-Tender, Bowel Sounds Present, Distended (Tootie Grant) Musculoskeletal MS Exam: Joints Intact, Normal Tone, Unable to Ambulate (Tootie Grant) Integumentary Skin Exam: Warm, Dry (Tootie Grant) Extremeties Extremities Exam: Pedal Pulses Palpable, Moderate Edema, Pitting Edema (Tootie Grant) Neurologic Neuro Exam: Unresponsive, Sedated (Tootie Grant) Assessment/Plan Assessment Summary: KAILEE/Acute Renal Failure, Acute Tubular Necrosis, Fluid/ Volume Overload, Hypertension, Diabetes Mellitus Problem List: (1) Acute renal failure ICD Codes: N17.9 - Acute kidney failure, unspecified Status: Acute Plan: 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 Renal function declined. Hemodialysis started 12/20 (yesterday), she had 3L UF due again for HD, will begin HD per [facility] schedule it remains to be seen if HD will be permanent, monitor for signs of renal recovery she is non olgiuric, repeat labs in AM Bumex was stopped, not on IVF she has sings of fluid overload. Follow fluid status (2) HCAP (healthcare-associated pneumonia) ICD Codes: J18.9 - Healthcare-associated pneumonia Status: Acute Plan: Patient is on Levaquin and Zosyn Dose medications appropriate to her renal status. om 40% Fi02, continue ventilator support (3) Acute respiratory failure ICD Codes: J96.00 - Acute respiratory failure Status: Acute Plan: s/p intubation , being treated for Pneumonia (4) DM (diabetes mellitus) ICD Codes: E11.9 - Type 2 diabetes mellitus without complications Status: Chronic Plan: continue insulin therapy goal 140-180 mg/dL (5) Hypocalcemia ICD Codes: E83.51 - Hypocalcemia Plan: PTH is high. She has secondary hyperparathyroidism, with hyperphosphatemia and hypocalcemia. She is on Calcium acetate TID via her feeding tube. Hypocalcemia persists. Also on Vitamin D3 and calcitriol (Tootie Grant) Plan patient was seen and examined. Dialysis again today. Agree with above assessment and plan. (Thomas Blackmon MD) Problem Qualifiers (1) Acute renal failure: Qualified Codes: N17.9 - Acute kidney failure, unspecified (2) Acute respiratory failure: Qualified Codes: J96.01 - Acute respiratory failure with hypoxia; J96.02 - Acute respiratory failure with hypercapnia (3) DM (diabetes mellitus): Qualified Codes: E13.9 - Other specified diabetes mellitus without complications Tootie Grant Dec 21, 2016 10:20 Thomas Blackmon MD Dec 21, 2016 14:01
[2016-12-21] MEDS: HEPARIN SODIUM - IV 10,000 UNITS/10 ML VIAL PRN (12:22)
[2016-12-21] MEDS: GENTAMICIN SULFATE (DIALYSIS USE ONLY) 20 MG/2 ML VIAL IV PRN (12:22)
[2016-12-21] MEDS: MIDAZOLAM 100 MG/100 ML INJ 100 ML IV PRN (13:50)
--- NOTE | 2016-12-21 13:56 | HHI.PR ---
Subjective Remarks Sedated and on the vent at 40 % FIo2 . CXR shows mild vascular congestion On dialysis now and will have 3.5 L out. Has no fever. sedated.with fentanyl/ Diprivan Objective Vital Signs Date Time Temp Pulse Resp B/P (MAP) Pulse Ox O2 Delivery O2 Flow Rate FiO2 12/21/16 12:04 94 40 12/21/16 12:00 62 139/65 (89) 166/74 (104) 12/21/16 12:00 40 12/21/16 12:00 62 12/21/16 12:00 97.5 62 33 139/65 (89) 93 166/74 (104) 12/21/16 10:00 66 12/21/16 08:47 97 40 12/21/16 08:10 16 12/21/16 08:00 40 12/21/16 08:00 61 12/21/16 08:00 97.3 61 16 142/68 (92) 98 169/75 (106) 12/21/16 06:00 64 12/21/16 06:00 64 142/69 (93) 164/79 (107) 12/21/16 04:07 95 50 12/21/16 04:00 97.6 79 22 139/66 (90) 95 171/68 (102) 12/21/16 04:00 63 12/21/16 04:00 50 12/21/16 02:00 62 12/21/16 00:21 96 50 12/21/16 00:00 97.4 63 35 123/62 (82) 95 146/61 (89) 12/21/16 00:00 63 123/62 (82) 146/61 (89) 12/21/16 00:00 63 12/21/16 00:00 50 12/20/16 22:00 63 12/20/16 21:05 97 60 12/20/16 20:00 60 12/20/16 20:00 50 12/20/16 20:00 98.4 60 16 151/71 (97) 97 171/76 (107) 12/20/16 18:00 66 122/60 (80) 147/62 (90) 12/20/16 18:00 67 12/20/16 16:26 97 70 12/20/16 16:00 98.9 67 16 92/57 (69) 97 104/64 (77) 12/20/16 16:00 67 12/20/16 16:00 50 12/20/16 14:00 70 16 124/58 (80) 99 159/74 (102) 12/20/16 14:00 66 I/O 12/20/16 12/20/16 12/20/16 12/21/16 12/21/16 12/21/16 06:59 14:59 22:59 06:59 14:59 22:59 Intake Total 420 ml 366 ml 756 ml 450 ml Output Total 395 ml 188 ml 3812 ml 800 ml Balance -395 ml 232 ml -3446 ml -44 ml 450 ml Intake IV Total 420 ml 100 ml 450 ml Tube Feeding 166 ml 506 ml Other 200 ml 150 ml Output Urine Total 395 ml 188 ml 812 ml 800 ml Hemodialysis 3000 ml # Bowel Movements 1 Result Diagram: 12/21/16 0512/21/16 0532 Objective Remarks PHYSICAL EXAMINATION GENERAL: This is a middle-aged obese white female who is intubated, sedated, assisting the ventilator. HEENT: Normocephalic. Pupils reactive and equal. Tongue is moist. Nasal mucosae clear. NECK: Supple. No bruits or thyroid enlargement or lymphadenopathy. Trachea midline. CHEST: Equal movements with scattered wheezes and prolonged expirations,and few crackles at the bases. HEART: The heart sounds are irregular, S1-S2. No murmur. No S3. ABDOMEN: Soft and slightly distended. Bowel sounds are active. No organomegaly. EXTREMITIES: minimal edema. Reflexes are 1+. NEUROLOGIC: The patient is sedated. SKIN: Negative. Assessment and Plan Assessment and Plan IMPRESSION 1. Hypercapnic respiratory failure. 2. Severe COPD with emphysema. 3. History of diabetes mellitus. 4. Hypertension. 5. History of obstructive sleep apnea. 6. CKD 1V/KAILEE Plan : 1. Continue on Vent support and wean FIO2 . 2. Cont Antibiotics.per ID 3. Dialysis today. 4. Nebs q6h with duoneb 5. CBC,CXR ,BMP in am 6. Tube feeds at 40 CC 7. Cont Solumedrol 40 mg IV Q8H 8. Keep sedated with Diprivan/Fentanyl 9. CPAP trial in am. Heidi Villareal MD Dec 21, 2016 13:56
[2016-12-21] MEDS: ALBUMIN HUMAN 25% 25 GM/100 ML BAGP IV PRN (13:57)
[2016-12-21] MEDS ORDERED: CALCIUM CHLORIDE INJ 2 GM in DEXTROSE 5% IN WATER 100ML INJ 100 ML IV ONE ×2 (15:30)
--- NOTE | 2016-12-21 15:41 | HHI.CCPN ---
Subjective Remarks/Hospital Course 61-year-old female. Date of admission 12/14/2016. Past records includes COPD/oxygen dependent, obstructive sleep apnea not using nocturnal CPAP , hypertension, morbid obesity. Hypertension, chronic kidney disease stage IV. She presents to [facility] 2 day history of shortness of breath. She is essentially in extremis 100 hour troponin emergency report. She is immediately placed on BiPAP however failed and was emergently endotracheally intubated. She required 100% FiO2 and was intermittently hypotensive the ED. CT head negative. Chest x-ray revealed possible vascular congestion. She is also noted of a calcium of 5.0. Elevated creatinine 5.1 with a baseline 1.9. she received 2 g calcium chloride and she received 20 mg IV Lasix. [employer] discontinued IV fluids and starting Bumex at 2 mg IV twice a day. 2-D echocardiogram revealed hyperdynamic state with EF of 65-70%. 12/15: - Afebrile. Off all vasopressors. 700 cc urine overnight. She is responding to fluids. Currently on midazolam drip. We'll attempt sedation vacation today if FiO2 decreased to around 50%. Subjective 12/16: Afebrile. Off all vasopressors. 1300 cc urine output past 24 hours. Nonoliguric. Currently on Versed and fentanyl drips. Moving all 4 extremities spontaneous. Will briefly attempt sedation vacation day but resedate BRIANA. 12/17: Patient had to be neuromuscularly paralyzed due to high peak pressures and hypoventilation. Started on Bumex drip overnight. Currently on 70% fio2, 10 PEEP , due to severe hypoxia. BUN/Creat 108/5, but urine output is adequate on Bumex drip-Nephrology wants to wait 24 hours prior to HD. Chest exam reveals severe bilateral expiratory wheezing 12/18: Patient remains critically severely hypoxemic. Good response to Bumex gtt. 5.1 L urine output in 24 hours. BUN/creatinine trending down 99/4. Potassium being replaced. Continue to wean FiO2 as tolerated remains on 55% with 12 of PEEP. I will discontinue neuromuscular blockade today 12/19: Remains critically ill but stable. FiO2 remains at 50%, PEEP just earliest 8. Urine output more than 2 L on Bumex infusion but BUN is increased to 111 creatinine stable at 4. Discussed with nephrology DC Bumex infusion and start scheduled Bumex 1 mg every 8 hours 12/20: Requiring high FiO2 at 60% without improvement remains critically ill. Worsening BUN/creatinine today 136/4.6. Urine output 1 L in 24 hours. We'll start hemodialysis today after placing Vas-Cath. Patient not tolerating sedation vacation due to ventilator synchrony 12/21: Requiring heavy sedation for vent synchrony. FiO2 down to 40%, PEEP 8. HD started yesterday, repeat today. Creatinine slightly improved with dialysis Objective Vital Signs Date Time Temp Pulse Resp B/P (MAP) Pulse Ox O2 Delivery O2 Flow Rate FiO2 12/21/16 14:00 59 12/21/16 12:04 94 40 12/21/16 12:00 139/65 (89) 166/74 (104) 12/21/16 12:00 97.5 33 Intake and Output 12/21/16 12/21/16 12/21/16 07:59 15:59 23:59 Intake Total 1056 ml 250 ml Output Total 800 ml 3000 ml Balance 256 ml -2750 ml Result Diagram: 12/21/16 0532 12/21/16 0532 Imaging Last Impressions Chest X-Ray 12/15/16 0000 Signed Impressions: Service Date/Time: Thursday, December 15, 2016 03:58 - CONCLUSION: 1. Support apparatus in good position. Bilateral airspace consolidation. Freddie Tubbs MD Renal Ultrasound 12/14/16 0000 Signed Impressions: Service Date/Time: Wednesday, December 14, 2016 18:21 - CONCLUSION: Medical renal disease with echogenic kidneys. There is some atrophy of the right kidney. Nirav Camacho MD Head CT 12/14/16 0000 Signed Impressions: Service Date/Time: Wednesday, December 14, 2016 17:38 - CONCLUSION: Negative for an acute process. Sander Resendiz MD FACR Objective Remarks GENERAL: 60-year-old female, critically, ill orotracheally intubated SKIN: Warm and dry. No rash. Poor skin turgor. HEAD: Atraumatic. Normocephalic. EYES: Pupils equal and round about 3 mm bilaterally and reactive. No scleral icterus. No injection or drainage. ENT: No nasal bleeding or discharge. Mucous membranes pink and moist. Orotracheally intubated NECK: Trachea midline. No JVD. Left IJ removed. RIJ vascath site without hematoma CARDIOVASCULAR: Regular rate and rhythm. S1, S2 no S4. RESPIRATORY: Diminished breath sounds throughout. Symmetrical excursion. Mild wheezing GASTROINTESTINAL: Abdomen soft, non-tender, protuberant. Active bowel sounds are appreciated MUSCULOSKELETAL: Extremities without significant peripheral edema. No obvious deformities. NEUROLOGICAL: Intubated heavily sedated with propofol fentanyl and Versed. Opens eyes to sternal rub, very slight withdrawal to painful stimuli Date of Insertion: Dec 14, 2016 Line: Central Venous Catheter Side: Left Location: Internal, Jugular A/P Assessment and Plan Neuro/Psych: Toxic metabolic Encephalopathy - likely metabolic/CO2 retention Restless like syndrome Diabetic neuropathy Continue Fentanyl and propofol infusions. DC Versed. Start daily sedation Scheduled Dilaudid started 12/17/16 due to persistent hypertension responding to fentanyl bolus Nimbex for NM paralysis Dcd 12/18. Use when necessary neuromuscular blockade CT brain 12/14 revealed no acute intracranial findings Acetaminophen for fever, Holding gabapentin 300 mg 3 times a day in light of altered mental status CV: Uncontrolled hypertension History of hypertension History dyslipidemia Off all pressors currently receiving antihypertensives Currently on hydralazine 100 3 times a day,Isordil mill grams 3 times a day. Procardia at 40mg every 8 hours and clonidine 0.3 milligram TID Home medications include lisinopril 5 mill grams daily, metoprolol 50 mill grams twice a day, clonidine 0.1 mg 3 times a day, nifedipine 60 mill grams every 12 hours, Imdur 30 mg daily and hydralazine 100 mg 3 times daily. Cardene infusion to keep systolic blood pressure less than 160. As needed hydralazine IV EKG showed normal sinus rhythm. No acute ST-T changes. Specifically no QT prolongation setting of hypocalcemia Echocardiogram 2015 EF 55-60%. No regional wall motion abnormality. LEXIE- 61 mmHg. Mild MR. Echocardiogram 12/14/16 - EF 65-70%. No regional wall motion abnormality. Hyperdynamic state Resp: Acute hypoxemic respiratory failure Severe COPD/O2 dependent, with acute exacerbation HERACLIO/no CPAP at home Probable community-acquired pneumonia PRVC AC with PEEP 10. FiO2 60%. Wean to keep Sat >88% (chronic COPD on home oxygen) Ventilator bundle, Budesonide 0.5 mg/2 mL one inhalation twice a day Keep vent rate less than 16 breaths per minute to avoid air trapping, patient has very prolonged expiratory phase Tolerate hypercapnia, tolerate pH 7.2. Albuterol/ipratropium every 4 hours with albuterol hours is every 2 hours when necessary Methylprednisolone 40 mg IV every 6 hours At home Anoro Ellipta 62.5/25 one inhalation daily and Symbicort 160/4.5 2 puffs every 12 hours with as needed albuterol Chest x-ray revealed possible pulmonary edema with bilateral lower lobe infiltrate/atelectasis Flolan Dcd 12/17/16 Does not meet criteria for SBT due to high event and FiO2 requirements Not clinically stable for tracheostomy at this time, but more than likely she will need trach GI: Elevated transaminases Nepro. Famotidine for GI prophylaxis Docusate sodium/Senokot for bowel regimen. MiraLAX and lactulose Avoid hepatotoxic medications. Trending downward. CPK and hepatitis panel - negative Had BM 12/19 : Bonilla will be placed for accurate I's and O's in a critically ill patient Endo: Diabetes mellitus with neuropathy Hyperglycemia At home on insulin detemir 10 units twice a day with sliding scale insulin. on sliding scale insulin with Accu-Cheks every 6 hours to maintain euglycemia/ high regimen Novulog Renal: Acute kidney injury in the setting of Chronic kidney disease stage 4 - AIN versus medication BUN/cr 136/4.6 with diminishing urine output. On Bumex 1 mg IV q8 12/19. Discussed with Dr. Blackmon. Place Vascath for HD today Urine eosinophils - 0-2 and electrolytes FeNa 0.4 Renal ultrasound 12/14 indicative of medical renal disease with atrophied right kidney Monitor urine output. Accurate I's and O's Noted LIZANDRO 1-80 last admission/speckled. Heme: Normocytic anemia Monitor CBC daily ID: Probable community-acquired pneumonia Continue per Zosyn and Levaquin. DCd Vancomycin 12/17 UA negative/, sputum neg to date. Blood cultures 12/14 and 12/15 negative to date. Negative urine pneumococcal and Legionella antigens FEN: Hypocalcemia Hyponatremia Hyperphosphatemia Replace electrolytes as clinically indicated per ICU likely protocol Phosphorus elevated 5.9, PTH elevated 705.7, vitamin D 1/25 pending and vitamin D 25 -12.3 LOW. Replacement to be ordered by Dr. Hoskote Likely from underlying renal disease. Replace calcium IV as needed. Continue Phoslo and Ca carbonate Access Left IJ CVL day #8 placed 12/14-12/20 ANDREA Lara 12/20 Prophylaxis - GI -famotidine - DVT - SCD/heparin subcutaneous Critical Care: The total critical care time was 40 minutes. Time to perform other separately billable procedures was not included in the critical care time. Patient remains critically, with severe hypoxemic respiratory failure and multiorgan failure. Kathie Gastelum MD Dec 21, 2016 15:41
[2016-12-21] MEDS ORDERED: RESP: ALBUTEROL 2.5 MG/IPRATROPIUM 0.5 MG NEB (SCH) INH (16:00)
[2016-12-21] MEDS: hydrALAZINE HCL 20 MG/ML VIAL IV PUSH PRN ×2 (18:19→21:33)
[2016-12-22] VITALS (26 sets, daily range): BP systolic 146–196; BP diastolic 72–93; PULSE 75–105; RESP 17–51; TEMP 98.3–99.3; O2SAT 92–96
[2016-12-22] MEDS: hydrALAZINE HCL 20 MG/ML VIAL IV PUSH PRN ×3 (00:14→09:52)
[2016-12-22] MEDS: SODIUM CHLOR 0.9% 1000 ML INJ 1,000 ML IV SCH (03:00)
[2016-12-22] MEDS: RESP: ALBUTEROL 2.5 MG/IPRATROPIUM 0.5 MG NEB (SCH) INH ×6 (03:04→23:15)
[2016-12-22] MEDS: CHLORHEXIDINE GLUCONATE 2 % 1 PACK (2 CLOTHS) TOP SCH (04:00)
[2016-12-22] MEDS: INSULIN ASPART SUPPLEMENTAL SCALE SQ SCH ×5 (04:00→20:00)
[2016-12-22] MEDS: hydrALAZINE HCL 100 MG TAB PO SCH ×3 (04:49→22:00)
[2016-12-22] MEDS: methylPREDNISolone SOD SUCC 40 MG/1 ML VIAL IV PUSH SCH ×3 (04:49→21:10)
[2016-12-22] MEDS: NIFEdipine 20 MG CAP PO SCH ×3 (04:49→21:13)
[2016-12-22] MEDS: cloNIDine HCL 0.3 MG TAB PO SCH ×3 (04:49→21:10)
[2016-12-22] MEDS: HYDROmorphone HCL 2 MG TAB PO SCH ×3 (04:50→18:39)
[2016-12-22] MEDS: HEPARIN SODIUM - SQ 10,000 UNITS/ML VIAL SQ SCH ×2 (04:50→18:44)
[2016-12-22] MEDS: ISOSORBIDE DINITRATE 10 MG TAB PO SCH ×3 (04:50→21:10)
[2016-12-22] MEDS: PROPOFOL 1000 MG/100 ML INJ 100 ML IV PRN (05:29)
[2016-12-22] MEDS: RESP: BUDESONIDE 0.5 MG/2 ML NEB NEB SCH ×2 (07:48→20:00)
[2016-12-22] MEDS: CHLORHEXIDINE 0.12% (ORAL KIT) 15 ML CUP MT SCH ×2 (08:20→21:09)
[2016-12-22] MEDS: ARTIFICIAL TEARS OPTH SOLN 15 ML BTL EACH EYE SCH ×3 (08:25→18:00)
[2016-12-22] MEDS: ARTIFICIAL TEARS OPTH OINT 3.5 APPLIC/3.5 GM TUBO EACH EYE SCH ×2 (08:25→22:49)
[2016-12-22] MEDS: SODIUM CHLORIDE 0.9% FLUSH 10 ML FLUSH IV FLUSH SCH ×2 (08:25→21:20)
[2016-12-22] MEDS: JUVEN POWDER 1 PACK G-TUBE SCH ×2 (08:25→21:00)
[2016-12-22] MEDS: SODIUM CHLORIDE 0.9% FLUSH 10 ML FLUSH IVF SCH (08:26)
[2016-12-22] MEDS: BUMETANIDE INJ 1 MG/4 ML VIAL IV PUSH SCH (08:26)
[2016-12-22] MEDS: FAMOTIDINE 20 MG/2 ML VIAL IV PUSH SCH ×2 (08:26→21:10)
[2016-12-22] MEDS: DOCUSATE SODIUM 50 MG/SENNA 8.6 MG TAB PO SCH ×2 (08:27→21:00)
[2016-12-22] MEDS: INSULIN DETEMIR 100 UNITS/ML VIAL SQ SCH ×2 (08:27→21:00)
[2016-12-22] MEDS: CALCITRIOL 0.25 MCG CAP NG SCH (08:27)
[2016-12-22] MEDS: LACTULOSE SYRUP 20 GM/30 ML CUP OG-TUBE SCH ×2 (08:27→21:10)
[2016-12-22] MEDS: POLYETHYLENE GLYCOL 17 GM PKG OG-TUBE SCH ×2 (08:27→21:20)
[2016-12-22] MEDS: CHOLECALCIFEROL (VIT D3) 1000 UNIT TAB NG SCH (08:27)
[2016-12-22] MEDS: CALCIUM ACETATE 667 MG CAP PO SCH ×3 (08:28→18:39)
[2016-12-22] MEDS: CALCIUM CARBONATE 1.25 GM (CA 500 MG) TAB PO SCH ×2 (08:28→21:10)
[2016-12-22] MEDS: UMECLIDINIUM 62.5 MCG/VILANTEROL 25 MCG INHALER INH SCH (09:00)
[2016-12-22] MEDS ORDERED: CALCIUM GLUCONATE INJ 2 GM in SODIUM CHLORIDE 0.9% INJ 100 ML IV ONE (10:00)
--- NOTE | 2016-12-22 11:20 | HHI.NPPN ---
Subjective Renal Failure: Chronic, Acute Review of Systems General General Remarks unable to obtain Objective Data Data Vital Signs Date Time Temp Pulse Resp B/P (MAP) Pulse Ox O2 Delivery O2 Flow Rate FiO2 12/22/16 08:41 94 45 12/22/16 06:00 83 12/22/16 06:00 83 156/79 (104) 187/93 (124) 12/22/16 04:03 94 45 12/22/16 04:00 98.9 83 31 171/81 (111) 93 193/85 (121) 12/22/16 04:00 45 12/22/16 04:00 83 12/22/16 02:00 92 12/22/16 00:14 92 45 12/22/16 00:06 104 160/75 (103) 188/76 (113) 12/22/16 00:00 105 12/22/16 00:00 45 12/22/16 00:00 105 157/74 (101) 187/93 (124) 12/22/16 00:00 98.9 105 17 157/74 (101) 92 187/93 (124) 12/21/16 22:00 94 12/21/16 20:45 93 45 12/21/16 20:00 91 12/21/16 20:00 45 12/21/16 20:00 99.0 91 18 160/74 (102) 91 186/82 (116) 12/21/16 18:00 80 12/21/16 18:00 80 147/72 (97) 183/83 (116) 12/21/16 16:21 93 40 12/21/16 16:00 97.9 64 16 102/55 (71) 91 126/62 (83) 12/21/16 16:00 59 12/21/16 16:00 40 12/21/16 14:00 59 12/21/16 12:04 94 40 12/21/16 12:00 62 139/65 (89) 166/74 (104) 12/21/16 12:00 40 12/21/16 12:00 62 12/21/16 12:00 97.5 62 33 139/65 (89) 93 166/74 (104) -: 12/21/16 0532 12/21/16 0532 Tubes & Lines: Vas-Cath, Bonilla Tubes & Lines Comment A line right wrist; TLC left IJ Drip Comment fentanyl, propofol, versed Physical Exam General Appearance: Well Developed, Comfortable, Obese Eyes Eye Exam: Pupils Equal Throat Throat Exam: Oral Mucosa [place] & Moist Neck Neck Exam: Neck Supple Pulmonary Resp Exam: Breath Sounds Equal, No Distress, Rhonchi, Decreased Bases, Diminished Breath Sounds Cardiology CV Exam: Regular, Normal Sinus Rhythm Gastrointestinal/Abdomen GI Exam: Soft, Non-Tender, Bowel Sounds Present, Distended Musculoskeletal MS Exam: Joints Intact, Normal Tone, Unable to Ambulate Integumentary Skin Exam: Warm, Dry Extremeties Extremities Exam: Pedal Pulses Palpable, Moderate Edema, Pitting Edema Neurologic Neuro Exam: Unresponsive, Sedated Assessment/Plan Assessment Summary: KAILEE/Acute Renal Failure, Acute Tubular Necrosis, Fluid/ Volume Overload, Hypertension, Diabetes Mellitus Problem List: (1) Acute renal failure ICD Codes: N17.9 - Acute kidney failure, unspecified Status: Acute Plan: 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 Renal function declined. Hemodialysis started 12/20 (yesterday), she had 3L UF due again for HD, will begin HD per MWF schedule it remains to be seen if HD will be permanent, monitor for signs of renal recovery she is non oliguric, repeat labs in AM Bumex was stopped, not on IVF Cr declining (2) HCAP (healthcare-associated pneumonia) ICD Codes: J18.9 - Healthcare-associated pneumonia Status: Acute Plan: Patient is on Levaquin and Zosyn Dose medications appropriate to her renal status. (3) Acute respiratory failure ICD Codes: J96.00 - Acute respiratory failure Status: Acute Plan: s/p intubation , being treated for Pneumonia (4) DM (diabetes mellitus) ICD Codes: E11.9 - Type 2 diabetes mellitus without complications Status: Chronic Plan: continue insulin therapy goal 140-180 mg/dL (5) Hypocalcemia ICD Codes: E83.51 - Hypocalcemia Plan: PTH is high. She has secondary hyperparathyroidism, with hyperphosphatemia and hypocalcemia. She is on Calcium acetate TID via her feeding tube. Hypocalcemia persists. Also on Vitamin D3 and calcitriol Problem Qualifiers (1) Acute renal failure: Qualified Codes: N17.9 - Acute kidney failure, unspecified (2) Acute respiratory failure: Qualified Codes: J96.01 - Acute respiratory failure with hypoxia; J96.02 - Acute respiratory failure with hypercapnia (3) DM (diabetes mellitus): Qualified Codes: E13.9 - Other specified diabetes mellitus without complications Sukhjinder Carbajal MD Dec 22, 2016 11:20
[2016-12-22] MEDS ORDERED: hydrALAZINE HCL 50 MG TAB PO SCH (11:45)
--- NOTE | 2016-12-22 12:01 | HHI.CCPN ---
Subjective Remarks/Hospital Course 61-year-old female. Date of admission 12/14/2016. Past records includes COPD/oxygen dependent, obstructive sleep apnea not using nocturnal CPAP , hypertension, morbid obesity. Hypertension, chronic kidney disease stage IV. She presents to [facility] 2 day history of shortness of breath. She is essentially in extremis 100 hour troponin emergency report. She is immediately placed on BiPAP however failed and was emergently endotracheally intubated. She required 100% FiO2 and was intermittently hypotensive the ED. CT head negative. Chest x-ray revealed possible vascular congestion. She is also noted of a calcium of 5.0. Elevated creatinine 5.1 with a baseline 1.9. she received 2 g calcium chloride and she received 20 mg IV Lasix. Brand Planner discontinued IV fluids and starting Bumex at 2 mg IV twice a day. 2-D echocardiogram revealed hyperdynamic state with EF of 65-70%. 12/15: - Afebrile. Off all vasopressors. 700 cc urine overnight. She is responding to fluids. Currently on midazolam drip. We'll attempt sedation vacation today if FiO2 decreased to around 50%. 12/16: Afebrile. Off all vasopressors. 1300 cc urine output past 24 hours. Nonoliguric. Currently on Versed and fentanyl drips. Moving all 4 extremities spontaneous. Will briefly attempt sedation vacation day but resedate BRIANA. 12/17: Patient had to be neuromuscularly paralyzed due to high peak pressures and hypoventilation. Started on Bumex drip overnight. Currently on 70% fio2, 10 PEEP , due to severe hypoxia. BUN/Creat 108/5, but urine output is adequate on Bumex drip-Nephrology wants to wait 24 hours prior to HD. Chest exam reveals severe bilateral expiratory wheezing 12/18: Patient remains critically severely hypoxemic. Good response to Bumex gtt. 5.1 L urine output in 24 hours. BUN/creatinine trending down 99/4. Potassium being replaced. Continue to wean FiO2 as tolerated remains on 55% with 12 of PEEP. I will discontinue neuromuscular blockade today 12/19: Remains critically ill but stable. FiO2 remains at 50%, PEEP just earliest 8. Urine output more than 2 L on Bumex infusion but BUN is increased to 111 creatinine stable at 4. Discussed with nephrology DC Bumex infusion and start scheduled Bumex 1 mg every 8 hours 12/20: Requiring high FiO2 at 60% without improvement remains critically ill. Worsening BUN/creatinine today 136/4.6. Urine output 1 L in 24 hours. We'll start hemodialysis today after placing Vas-Cath. Patient not tolerating sedation vacation due to ventilator synchrony 12/21: Requiring heavy sedation for vent synchrony. FiO2 down to 40%, PEEP 8. HD started yesterday, repeat today. Creatinine slightly improved with dialysis Subjective 12/22: remaining encephalopathic. hypoxia somewhat improved. severely hypertensive despite medications. KAILEE persists on HD. volume overloaded. remaining critically ill with multiple organ systems involved and off pathway. Objective Vital Signs Date Time Temp Pulse Resp B/P (MAP) Pulse Ox O2 Delivery O2 Flow Rate FiO2 12/22/16 08:41 94 45 12/22/16 06:00 83 12/22/16 06:00 156/79 (104) 187/93 (124) 12/22/16 04:00 98.9 31 Intake and Output 12/22/16 12/22/16 12/22/16 07:59 15:59 23:59 Intake Total 1138 ml Output Total 850 ml Balance 288 ml Result Diagram: 12/21/16 0532 12/21/16 0532 Imaging Last Impressions Chest X-Ray 12/15/16 0000 Signed Impressions: Service Date/Time: Thursday, December 15, 2016 03:58 - CONCLUSION: 1. Support apparatus in good position. Bilateral airspace consolidation. Freddie Tubbs MD Renal Ultrasound 12/14/16 0000 Signed Impressions: Service Date/Time: Wednesday, December 14, 2016 18:21 - CONCLUSION: Medical renal disease with echogenic kidneys. There is some atrophy of the right kidney. Nirav Camacho MD Head CT 12/14/16 0000 Signed Impressions: Service Date/Time: Wednesday, December 14, 2016 17:38 - CONCLUSION: Negative for an acute process. Sander Resendiz MD FACR Objective Remarks GENERAL: 60-year-old female, critically, ill orotracheally intubated SKIN: Warm and dry. No rash. Poor skin turgor. HEAD: Atraumatic. Normocephalic. EYES: Pupils equal and round about 3 mm bilaterally and reactive. No scleral icterus. No injection or drainage. ENT: No nasal bleeding or discharge. Mucous membranes pink and moist. Orotracheally intubated NECK: Trachea midline. JVD unable to assess due to obesity. RIJ vascath site without hematoma CARDIOVASCULAR: Regular rate and rhythm. RESPIRATORY: Diminished breath sounds throughout. Symmetrical excursion. Mild wheezing GASTROINTESTINAL: Abdomen soft, non-tender, protuberant. MUSCULOSKELETAL: Extremities without significant peripheral edema. No obvious deformities. NEUROLOGICAL: Intubated heavily sedated with propofol fentanyl Opens eyes to sternal rub, very slight withdrawal to painful stimuli A/P Assessment and Plan Assessment: Morbidly obese 61yF with severe acute hypoxic and hypercarbic respiratory failure, acute kidney injury requiring renal replacement therapy, metabolic encephalopathy. not improving on pathway. if we withdraw support, she will . daily SBTs, but failing for hypoxia, distress, and altered mental status. on HD. Very hypertensive despite multiple anti-hypertensives. Prognosis guarded at best. may need to pursue tracheostomy in the future. Neuro/Psych: Toxic metabolic Encephalopathy - likely metabolic/CO2 retention Restless like syndrome Diabetic neuropathy Continue Fentanyl and propofol infusions. daily sedation vacation. Scheduled Dilaudid started 12/17/16 due to persistent hypertension responding to fentanyl bolus CT brain 12/14 revealed no acute intracranial findings Acetaminophen for fever, Holding gabapentin 300 mg 3 times a day in light of altered mental status CV: Uncontrolled hypertension- persistent History of hypertension History dyslipidemia Currently on hydralazine 100 3 times a day,Isordil mill grams 3 times a day. Procardia at 40mg every 8 hours and clonidine 0.3 milligram TID. Add Labetalol 200mg po q8hr. add breakthrough labetalol and hydralazine iv. Home medications include lisinopril 5 mill grams daily, metoprolol 50 mill grams twice a day, clonidine 0.1 mg 3 times a day, nifedipine 60 mill grams every 12 hours, Imdur 30 mg daily and hydralazine 100 mg 3 times daily. EKG showed normal sinus rhythm. No acute ST-T changes. Specifically no QT prolongation setting of hypocalcemia Echocardiogram 2015 EF 55-60%. No regional wall motion abnormality. LEXIE- 61 mmHg. Mild MR. Echocardiogram 12/14/16 - EF 65-70%. No regional wall motion abnormality. Hyperdynamic state Resp: Acute hypoxemic respiratory failure Severe COPD/O2 dependent, with acute exacerbation HERACLIO/no CPAP at home Probable community-acquired pneumonia PRVC AC. wean fio2 for spo2 > 88% Ventilator bundle, Budesonide 0.5 mg/2 mL one inhalation twice a day Keep vent rate less than 16 breaths per minute to avoid air trapping, patient has very prolonged expiratory phase Tolerate hypercapnia, tolerate pH 7.2. Albuterol/ipratropium every 4 hours with albuterol hours is every 2 hours when necessary Methylprednisolone 40 mg IV every 6 hours At home Anoro Ellipta 62.5/25 one inhalation daily and Symbicort 160/4.5 2 puffs every 12 hours with as needed albuterol Chest x-ray revealed possible pulmonary edema with bilateral lower lobe infiltrate/atelectasis Flolan Dcd 12/17/16 start SBTs. will likely need trach if she continues to fail. GI: Elevated transaminases Nepro. Famotidine for GI prophylaxis Docusate sodium/Senokot for bowel regimen. MiraLAX and lactulose Avoid hepatotoxic medications. Trending downward. CPK and hepatitis panel - negative Had BM 12/19 TFs : Bonilla will be placed for accurate I's and O's in a critically ill patient Endo: Diabetes mellitus with neuropathy Hyperglycemia At home on insulin detemir 10 units twice a day with sliding scale insulin. on sliding scale insulin with Accu-Cheks every 6 hours to maintain euglycemia/ high regimen Novulog Renal: Acute kidney injury in the setting of Chronic kidney disease stage 4 - AIN versus medication requiring renal replacement BUN/cr 136/4.6 with diminishing urine output. On Bumex 1 mg IV q8 12/19- d/c this given on HD. on IHD. Nephrology following. Urine eosinophils - 0-2 and electrolytes FeNa 0.4 Renal ultrasound 12/14 indicative of medical renal disease with atrophied right kidney Monitor urine output. Accurate I's and O's Noted LIZANDRO 1-80 last admission/speckled. Heme: Normocytic anemia Monitor CBC daily ID: Probable community-acquired pneumonia s/p full course of abx. d/c zosyn and levaquin. UA negative/, sputum neg to date. Blood cultures 12/14 and 12/15 negative to date. Negative urine pneumococcal and Legionella antigens FEN: Hypocalcemia Hyponatremia Hyperphosphatemia Replace electrolytes as clinically indicated per ICU likely protocol Phosphorus elevated 5.9, PTH elevated 705.7, vitamin D /25 pending and vitamin D 25 -12.3 LOW. Replacement to be ordered by Nephrology Likely from underlying renal disease. Replace calcium IV as needed. Continue Phoslo and Ca carbonate Access Left IJ CVL 12/14-12/20 RIJ Vascath 12/20 Prophylaxis - GI -famotidine - DVT - SCD/heparin subcutaneous Critical Care: The total critical care time was 31 minutes. Time to perform other separately billable procedures was not included in the critical care time. Patient remains critically, with severe hypoxemic respiratory failure and multiorgan failure. Not improving. José Luis Perez MD Dec 22, 2016 12:01
[2016-12-22] MEDS: LABETALOL HCL 200 MG TAB PO SCH ×2 (12:15→21:10)
[2016-12-22] MEDS: LABETALOL HCL 100 MG/20 ML VIAL IV PUSH PRN (12:57)
[2016-12-22] MEDS ORDERED: hydrALAZINE HCL 20 MG/ML VIAL IV PUSH PRN (13:00)
[2016-12-22] MEDS: fentaNYL DRIP 250 ML IV PRN (14:05)
--- NOTE | 2016-12-22 15:10 | HHI.NPPN ---
Subjective Renal Failure: Chronic, Acute Review of Systems General General Remarks unable to obtain Objective Data Data 12/22/16 12/23/16 19:00 07:00 Intake Total 350 ml Balance 350 ml Intake IV Total 350 ml Vital Signs Date Time Temp Pulse Resp B/P (MAP) Pulse Ox O2 Delivery O2 Flow Rate FiO2 12/22/16 14:59 96 45 12/22/16 14:06 17 12/22/16 13:00 80 156/82 (106) 179/78 (111) 12/22/16 13:00 80 39 156/82 (106) 95 179/78 (111) 12/22/16 13:00 80 12/22/16 12:27 95 45 12/22/16 12:00 84 160/83 (108) 184/81 (115) 12/22/16 12:00 45 12/22/16 12:00 84 12/22/16 12:00 84 38 160/83 (108) 96 184/81 (115) 12/22/16 11:00 91 12/22/16 11:00 91 171/82 (111) 191/82 (118) 12/22/16 11:00 91 51 171/82 (111) 95 191/82 (118) 12/22/16 10:00 98 44 171/81 (111) 94 196/78 (117) 12/22/16 10:00 98 12/22/16 10:00 98 171/81 (111) 196/78 (117) 12/22/16 09:00 84 12/22/16 09:00 84 156/76 (102) 187/82 (117) 12/22/16 09:00 84 45 156/76 (102) 94 187/82 (117) 12/22/16 08:41 94 45 12/22/16 08:00 45 12/22/16 08:00 76 12/22/16 08:00 76 12/22/16 08:00 76 163/78 (106) 185/79 (114) 12/22/16 08:00 76 45 163/78 (106) 95 185/79 (114) 12/22/16 08:00 98.3 12/22/16 06:00 83 12/22/16 06:00 83 156/79 (104) 187/93 (124) 12/22/16 04:03 94 45 12/22/16 04:00 98.9 83 31 171/81 (111) 93 193/85 (121) 12/22/16 04:00 45 12/22/16 04:00 83 12/22/16 02:00 92 12/22/16 00:14 92 45 12/22/16 00:06 104 160/75 (103) 188/76 (113) 12/22/16 00:00 105 12/22/16 00:00 45 12/22/16 00:00 105 157/74 (101) 187/93 (124) 12/22/16 00:00 98.9 105 17 157/74 (101) 92 187/93 (124) 12/21/16 22:00 94 12/21/16 20:45 93 45 12/21/16 20:00 91 12/21/16 20:00 45 12/21/16 20:00 99.0 91 18 160/74 (102) 91 186/82 (116) 12/21/16 18:00 80 12/21/16 18:00 80 147/72 (97) 183/83 (116) 12/21/16 16:21 93 40 12/21/16 16:00 97.9 64 16 102/55 (71) 91 126/62 (83) 12/21/16 16:00 59 12/21/16 16:00 40 -: 12/21/16 0532 12/21/16 0532 Tubes & Lines: Vas-Cath, Bonilla Tubes & Lines Comment A line right wrist; TLC left IJ Drip Comment fentanyl, propofol, versed Physical Exam General Appearance: Well Developed, Comfortable, Obese Eyes Eye Exam: Pupils Equal Throat Throat Exam: Oral Mucosa [place] & Moist Neck Neck Exam: Neck Supple Pulmonary Resp Exam: Breath Sounds Equal, No Distress, Rhonchi, Decreased Bases, Diminished Breath Sounds Cardiology CV Exam: Regular, Normal Sinus Rhythm Gastrointestinal/Abdomen GI Exam: Soft, Non-Tender, Bowel Sounds Present, Distended Musculoskeletal MS Exam: Joints Intact, Normal Tone, Unable to Ambulate Integumentary Skin Exam: Warm, Dry Extremeties Extremities Exam: Pedal Pulses Palpable, Moderate Edema, Pitting Edema Neurologic Neuro Exam: Unresponsive, Sedated Assessment/Plan Assessment Summary: KAILEE/Acute Renal Failure, Acute Tubular Necrosis, Fluid/ Volume Overload, Hypertension, Diabetes Mellitus Problem List: (1) Acute renal failure ICD Codes: N17.9 - Acute kidney failure, unspecified Status: Acute Plan: 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 Renal function declined. Hemodialysis started 12/20 (yesterday), she had 3L UF due again for HD, will begin HD per MWF schedule it remains to be seen if HD will be permanent, monitor for signs of renal recovery Calcium replaced BP monitor high Hydralazine added FiO2 45% (2) HCAP (healthcare-associated pneumonia) ICD Codes: J18.9 - Healthcare-associated pneumonia Status: Acute Plan: Patient is on Levaquin and Zosyn Dose medications appropriate to her renal status. (3) Acute respiratory failure ICD Codes: J96.00 - Acute respiratory failure Status: Acute Plan: s/p intubation , being treated for Pneumonia (4) DM (diabetes mellitus) ICD Codes: E11.9 - Type 2 diabetes mellitus without complications Status: Chronic Plan: continue insulin therapy goal 140-180 mg/dL (5) Hypocalcemia ICD Codes: E83.51 - Hypocalcemia Plan: PTH is high. She has secondary hyperparathyroidism, with hyperphosphatemia and hypocalcemia. She is on Calcium acetate TID via her feeding tube. Hypocalcemia persists. Also on Vitamin D3 and calcitriol Problem Qualifiers (1) Acute renal failure: Qualified Codes: N17.9 - Acute kidney failure, unspecified (2) Acute respiratory failure: Qualified Codes: J96.01 - Acute respiratory failure with hypoxia; J96.02 - Acute respiratory failure with hypercapnia (3) DM (diabetes mellitus): Qualified Codes: E13.9 - Other specified diabetes mellitus without complications Sukhjinder Carbajal MD Dec 22, 2016 15:10
--- NOTE | 2016-12-22 15:46 | HHI.PR ---
Subjective Remarks ON THE VENT SEDATED O2 SAT 96% Objective Vital Signs Date Time Temp Pulse Resp B/P (MAP) Pulse Ox O2 Delivery O2 Flow Rate FiO2 12/22/16 14:59 96 45 12/22/16 14:06 17 12/22/16 13:00 80 156/82 (106) 179/78 (111) 12/22/16 13:00 80 39 156/82 (106) 95 179/78 (111) 12/22/16 13:00 80 12/22/16 12:27 95 45 12/22/16 12:00 84 160/83 (108) 184/81 (115) 12/22/16 12:00 45 12/22/16 12:00 84 12/22/16 12:00 84 38 160/83 (108) 96 184/81 (115) 12/22/16 11:00 91 12/22/16 11:00 91 171/82 (111) 191/82 (118) 12/22/16 11:00 91 51 171/82 (111) 95 191/82 (118) 12/22/16 10:00 98 44 171/81 (111) 94 196/78 (117) 12/22/16 10:00 98 12/22/16 10:00 98 171/81 (111) 196/78 (117) 12/22/16 09:00 84 12/22/16 09:00 84 156/76 (102) 187/82 (117) 12/22/16 09:00 84 45 156/76 (102) 94 187/82 (117) 12/22/16 08:41 94 45 12/22/16 08:00 45 12/22/16 08:00 76 12/22/16 08:00 76 12/22/16 08:00 76 163/78 (106) 185/79 (114) 12/22/16 08:00 76 45 163/78 (106) 95 185/79 (114) 12/22/16 08:00 98.3 12/22/16 06:00 83 12/22/16 06:00 83 156/79 (104) 187/93 (124) 12/22/16 04:03 94 45 12/22/16 04:00 98.9 83 31 171/81 (111) 93 193/85 (121) 12/22/16 04:00 45 12/22/16 04:00 83 12/22/16 02:00 92 12/22/16 00:14 92 45 12/22/16 00:06 104 160/75 (103) 188/76 (113) 12/22/16 00:00 105 12/22/16 00:00 45 12/22/16 00:00 105 157/74 (101) 187/93 (124) 12/22/16 00:00 98.9 105 17 157/74 (101) 92 187/93 (124) 12/21/16 22:00 94 12/21/16 20:45 93 45 12/21/16 20:00 91 12/21/16 20:00 45 12/21/16 20:00 99.0 91 18 160/74 (102) 91 186/82 (116) 12/21/16 18:00 80 12/21/16 18:00 80 147/72 (97) 183/83 (116) 12/21/16 16:21 93 40 12/21/16 16:00 97.9 64 16 102/55 (71) 91 126/62 (83) 12/21/16 16:00 59 12/21/16 16:00 40 I/O 12/21/16 12/21/16 12/21/16 12/22/16 12/22/16 12/22/16 06:59 14:59 22:59 06:59 14:59 22:59 Intake Total 756 ml 550 ml 975 ml 1138 ml 350 ml Output Total 800 ml 3000 ml 875 ml 850 ml Balance -44 ml -2450 ml 100 ml 288 ml 350 ml Intake IV Total 100 ml 550 ml 350 ml 150 ml 350 ml Tube Feeding 506 ml 450 ml 838 ml Other 150 ml 175 ml 150 ml Output Urine Total 800 ml 875 ml 850 ml Hemodialysis 3000 ml Result Diagram: 12/21/16 0532 12/21/16 0532 Objective Remarks Laboratory Tests Test 12/20/16 05:40 12/20/16 12:25 12/20/16 12:38 12/20/16 12:50 Red Blood Count 3.02 MIL/MM3 (4.00-5.30) 2.96 MIL/MM3 (4.00-5.30) Hemoglobin 9.0 GM/DL (11.6-15.3) 8.8 GM/DL (11.6-15.3) Hematocrit 27.6 % (35.0-46.0) 27.1 % (35.0-46.0) Neutrophils (%) (Auto) 91.3 % (16.0-70.0) 90.9 % (16.0-70.0) Lymphocytes (%) (Auto) 2.4 % (9.0-44.0) 3.2 % (9.0-44.0) Lymphocytes # (Auto) 0.2 TH/MM3 (1.0-4.8) 0.3 TH/MM3 (1.0-4.8) Blood Urea Nitrogen 136 MG/DL (7-18) Creatinine 4.61 MG/DL (0.50-1.00) Random Glucose 151 MG/DL (74-106) Albumin 2.6 GM/DL (3.4-5.0) Calcium Level 5.9 MG/DL (8.5-10.1) Alanine Aminotransferase (ALT/SGPT) 67 U/L (10-53) Sodium Level 134 MEQ/L (136-145) Estimat Glomerular Filtration Rate 10 ML/MIN (>89) Protein Corrected Calcium 6.1 MG/DL (8.5-10.1) Venous Blood pH 7.22 (7.360-7.400) Venous Blood Partial Pressure CO2 59 mmHg (44-48) Venous Blood Partial Pressure O2 86 mmHg (35-40) Venous Blood Oxygen Saturation 93 % (70-76) Venous Blood Base Excess -3.0 mmol/L (-2-2) Blood Gas Base Excess -4.1 mmol/L (-2-2) Arterial Blood pH 7.24 (7.380-7.420) Arterial Blood Partial Pressure CO2 54 mmHg (38-42) Arterial Blood Partial Pressure O2 335 mmHg (61-120) Blood Gas Hemoglobin 9.0 G/DL (12.0-16.0) Neutrophils # (Auto) 8.2 TH/MM3 (1.8-7.7) Test 12/21/16 05:32 12/21/16 13:30 Red Blood Count 2.90 MIL/MM3 (4.00-5.30) Hemoglobin 8.5 GM/DL (11.6-15.3) Hematocrit 26.4 % (35.0-46.0) Neutrophils (%) (Auto) 96.6 % (16.0-70.0) Lymphocytes (%) (Auto) 1.1 % (9.0-44.0) Neutrophils # (Auto) 8.3 TH/MM3 (1.8-7.7) Lymphocytes # (Auto) 0.1 TH/MM3 (1.0-4.8) Blood Urea Nitrogen 115 MG/DL (7-18) Creatinine 3.41 MG/DL (0.50-1.00) Random Glucose 156 MG/DL (74-106) Total Protein 6.3 GM/DL (6.4-8.2) Albumin 2.4 GM/DL (3.4-5.0) Calcium Level 6.4 MG/DL (8.5-10.1) Estimat Glomerular Filtration Rate 14 ML/MIN (>89) Protein Corrected Calcium 6.8 MG/DL (8.5-10.1) Assessment and Plan Assessment and Plan RESPIRATORY FAILURE COPD PLAN VENT SUPPORT BRONCHODILATOR THERAPY WEAN TOLERATED Discharge Planning GENERAL: SKIN: Warm and dry. HEAD: Atraumatic. Normocephalic. EYES: Pupils equal and round. No scleral icterus. No injection or drainage. ENT: No nasal bleeding or discharge. Mucous membranes pink and moist. NECK: Trachea midline. No JVD. CARDIOVASCULAR: Regular rate and rhythm. RESPIRATORY: No accessory muscle use. Clear to auscultation. Breath sounds equal bilaterally. GASTROINTESTINAL: Abdomen soft, non-tender, nondistended. Hepatic and splenic margins not palpable. MUSCULOSKELETAL: Extremities without clubbing, cyanosis, or edema. No obvious deformities. NEUROLOGICAL: Awake and alert. No obvious cranial nerve deficits. Motor grossly within normal limits. Five out of 5 muscle strength in the arms and legs. Normal speech. PSYCHIATRIC: Appropriate mood and affect; insight and judgment normal. Riley Lin MD Dec 22, 2016 15:46
[2016-12-22 20:31] LABS: BICARBONATE 30.1 MEQ/L (21.0-32.0); POTASSIUM 3.8 MEQ/L (3.5-5.1)
[2016-12-23] VITALS (16 sets, daily range): BP systolic 131–178; BP diastolic 71–96; PULSE 78–97; RESP 16–19; TEMP 98–99.8; O2SAT 93–99
[2016-12-23] MEDS: HYDROmorphone HCL 2 MG TAB PO SCH ×4 (00:51→18:35)
[2016-12-23] MEDS: LABETALOL HCL 100 MG/20 ML VIAL IV PUSH PRN (01:55)
[2016-12-23] MEDS: SODIUM CHLOR 0.9% 1000 ML INJ 1,000 ML IV SCH (03:00)
[2016-12-23] MEDS: hydrALAZINE HCL 20 MG/ML VIAL IV PUSH PRN (03:26)
[2016-12-23] MEDS: INSULIN ASPART SUPPLEMENTAL SCALE SQ SCH ×6 (04:00→20:00)
[2016-12-23] MEDS: CHLORHEXIDINE GLUCONATE 2 % 1 PACK (2 CLOTHS) TOP SCH (04:00)
[2016-12-23] MEDS: RESP: ALBUTEROL 2.5 MG/IPRATROPIUM 0.5 MG NEB (SCH) INH ×5 (04:00→19:58)
[2016-12-23 04:22] LABS: HEMATOCRIT 29.4 % (35.0-46.0); MEAN CELL VOLUME 89.8 FL (80.0-100.0); MEAN CORPUSCULAR HEMOGLOBIN 29.1 PG (27.0-34.0); MEAN CORPUSCULAR HGB CONC 32.4 % (32.0-36.0); PLATELET COUNT 171 TH/MM3 (150-450); RED BLOOD COUNT 3.28 MIL/MM3 (4.00-5.30); RED CELL DISTRIBUTION WIDTH 14.9 % (11.6-17.2); REVIEW FLAG FINAL; WHITE BLOOD COUNT 13.9 TH/MM3 (4.0-11.0)
[2016-12-23 04:39] LABS: BICARBONATE 30.6 MEQ/L (21.0-32.0); POTASSIUM 3.9 MEQ/L (3.5-5.1)
[2016-12-23] MEDS: LABETALOL HCL 200 MG TAB PO SCH ×3 (05:33→21:11)
[2016-12-23] MEDS: methylPREDNISolone SOD SUCC 40 MG/1 ML VIAL IV PUSH SCH ×3 (05:35→21:15)
[2016-12-23] MEDS: HEPARIN SODIUM - SQ 10,000 UNITS/ML VIAL SQ SCH ×2 (05:35→17:00)
[2016-12-23] MEDS: cloNIDine HCL 0.3 MG TAB PO SCH ×3 (05:36→21:15)
[2016-12-23] MEDS: ISOSORBIDE DINITRATE 10 MG TAB PO SCH ×3 (05:36→21:16)
[2016-12-23] MEDS: NIFEdipine 20 MG CAP PO SCH ×3 (05:37→21:16)
[2016-12-23] MEDS: hydrALAZINE HCL 100 MG TAB PO SCH ×3 (05:47→21:15)
[2016-12-23] MEDS: fentaNYL DRIP 250 ML IV PRN (06:52)
[2016-12-23] MEDS: CHLORHEXIDINE 0.12% (ORAL KIT) 15 ML CUP MT SCH ×2 (08:00→21:11)
--- NOTE | 2016-12-23 08:23 | HHI.NPPN ---
Subjective Renal Failure: Chronic, Acute Review of Systems General General Remarks unable to obtain Objective Data Data Vital Signs Date Time Temp Pulse Resp B/P (MAP) Pulse Ox O2 Delivery O2 Flow Rate FiO2 12/23/16 06:00 85 12/23/16 06:00 85 141/84 (103) 163/81 (108) 12/23/16 04:00 90 12/23/16 04:00 95 45 12/23/16 04:00 45 12/23/16 04:00 99.8 90 19 157/95 (115) 94 178/96 (123) 12/23/16 02:00 78 12/23/16 00:00 80 12/23/16 00:00 80 136/82 (100) 148/74 (98) 12/23/16 00:00 98.7 80 17 136/82 (100) 93 148/74 (98) 12/23/16 00:00 45 12/22/16 23:10 93 45 12/22/16 22:00 84 12/22/16 20:30 94 45 12/22/16 20:00 88 12/22/16 20:00 99.0 88 17 150/82 (104) 95 163/75 (104) 12/22/16 20:00 45 12/22/16 18:00 86 155/79 (104) 179/78 (111) 12/22/16 18:00 86 12/22/16 18:00 86 18 155/79 (104) 95 179/78 (111) 12/22/16 17:00 80 18 154/81 (105) 95 175/76 (109) 12/22/16 17:00 80 12/22/16 16:00 78 12/22/16 16:00 78 19 146/75 (98) 95 164/72 (102) 12/22/16 16:00 99.3 12/22/16 16:00 45 12/22/16 15:00 82 12/22/16 14:59 96 45 12/22/16 14:06 17 12/22/16 14:01 75 12/22/16 14:00 76 12/22/16 13:00 80 156/82 (106) 179/78 (111) 12/22/16 13:00 80 39 156/82 (106) 95 179/78 (111) 12/22/16 13:00 80 9/9/17 12:27 95 45 12/22/16 12:00 84 160/83 (108) 184/81 (115) 12/22/16 12:00 45 12/22/16 12:00 84 12/22/16 12:00 84 38 160/83 (108) 96 184/81 (115) 12/22/16 11:00 91 12/22/16 11:00 91 171/82 (111) 191/82 (118) 12/22/16 11:00 91 51 171/82 (111) 95 191/82 (118) 12/22/16 10:00 98 44 171/81 (111) 94 196/78 (117) 12/22/16 10:00 98 12/22/16 10:00 98 171/81 (111) 196/78 (117) 12/22/16 09:00 84 12/22/16 09:00 84 156/76 (102) 187/82 (117) 12/22/16 09:00 84 45 156/76 (102) 94 187/82 (117) 12/22/16 08:41 94 45 -: 12/23/16 0340 12/23/16 0340 Tubes & Lines: Vas-Cath, Bonilla Tubes & Lines Comment A line right wrist; TLC left IJ Drip Comment fentanyl, propofol, versed Physical Exam General Appearance: Well Developed, Comfortable, Obese Eyes Eye Exam: Pupils Equal Throat Throat Exam: Oral Mucosa [place] & Moist Neck Neck Exam: Neck Supple Pulmonary Resp Exam: Breath Sounds Equal, No Distress, Rhonchi, Decreased Bases, Diminished Breath Sounds Cardiology CV Exam: Regular, Normal Sinus Rhythm Gastrointestinal/Abdomen GI Exam: Soft, Non-Tender, Bowel Sounds Present, Distended Musculoskeletal MS Exam: Joints Intact, Normal Tone, Unable to Ambulate Integumentary Skin Exam: Warm, Dry Extremeties Extremities Exam: Pedal Pulses Palpable, Moderate Edema, Pitting Edema Neurologic Neuro Exam: Unresponsive, Sedated Assessment/Plan Assessment Summary: KAILEE/Acute Renal Failure, Acute Tubular Necrosis, Fluid/ Volume Overload, Hypertension, Diabetes Mellitus Problem List: (1) Acute renal failure ICD Codes: N17.9 - Acute kidney failure, unspecified Status: Acute Plan: 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 Renal function declined. Hemodialysis started 12/20 (yesterday), she had 3L UF due again for HD, will begin HD per MWF schedule it remains to be seen if HD will be permanent, monitor for signs of renal recovery Calcium improved BP monitor improved with Hydralazine FiO2 45% Dr. Blackmon to follow (2) HCAP (healthcare-associated pneumonia) ICD Codes: J18.9 - Healthcare-associated pneumonia Status: Acute Plan: Patient is on Levaquin and Zosyn Dose medications appropriate to her renal status. (3) Acute respiratory failure ICD Codes: J96.00 - Acute respiratory failure Status: Acute Plan: s/p intubation , being treated for Pneumonia (4) DM (diabetes mellitus) ICD Codes: E11.9 - Type 2 diabetes mellitus without complications Status: Chronic Plan: continue insulin therapy goal 140-180 mg/dL (5) Hypocalcemia ICD Codes: E83.51 - Hypocalcemia Plan: PTH is high. She has secondary hyperparathyroidism, with hyperphosphatemia and hypocalcemia. She is on Calcium acetate TID via her feeding tube. Hypocalcemia persists. Also on Vitamin D3 and calcitriol Problem Qualifiers (1) Acute renal failure: Qualified Codes: N17.9 - Acute kidney failure, unspecified (2) Acute respiratory failure: Qualified Codes: J96.01 - Acute respiratory failure with hypoxia; J96.02 - Acute respiratory failure with hypercapnia (3) DM (diabetes mellitus): Qualified Codes: E13.9 - Other specified diabetes mellitus without complications Sukhjinder Carbajal MD Dec 23, 2016 08:23
[2016-12-23] MEDS: RESP: BUDESONIDE 0.5 MG/2 ML NEB NEB SCH ×2 (08:28→19:58)
[2016-12-23] MEDS: ARTIFICIAL TEARS OPTH OINT 3.5 APPLIC/3.5 GM TUBO EACH EYE SCH ×2 (08:48→21:12)
[2016-12-23] MEDS: JUVEN POWDER 1 PACK G-TUBE SCH ×2 (08:48→21:00)
[2016-12-23] MEDS: ARTIFICIAL TEARS OPTH SOLN 15 ML BTL EACH EYE SCH ×3 (08:48→18:00)
[2016-12-23] MEDS: CHOLECALCIFEROL (VIT D3) 1000 UNIT TAB NG SCH (08:49)
[2016-12-23] MEDS: LACTULOSE SYRUP 20 GM/30 ML CUP OG-TUBE SCH ×2 (08:49→21:13)
[2016-12-23] MEDS: SODIUM CHLORIDE 0.9% FLUSH 10 ML FLUSH IV FLUSH SCH ×2 (08:49→21:13)
[2016-12-23] MEDS: FAMOTIDINE 20 MG/2 ML VIAL IV PUSH SCH ×2 (08:49→21:13)
[2016-12-23] MEDS: CALCIUM ACETATE 667 MG CAP PO SCH ×3 (08:49→18:34)
[2016-12-23] MEDS: DOCUSATE SODIUM 50 MG/SENNA 8.6 MG TAB PO SCH ×2 (08:49→21:00)
[2016-12-23] MEDS: POLYETHYLENE GLYCOL 17 GM PKG OG-TUBE SCH ×2 (08:49→21:13)
[2016-12-23] MEDS: CALCIUM CARBONATE 1.25 GM (CA 500 MG) TAB PO SCH ×2 (08:49→21:00)
[2016-12-23] MEDS: CALCITRIOL 0.25 MCG CAP NG SCH (08:49)
[2016-12-23] MEDS: INSULIN DETEMIR 100 UNITS/ML VIAL SQ SCH ×2 (08:50→21:00)
[2016-12-23] MEDS: SODIUM CHLORIDE 0.9% FLUSH 10 ML FLUSH IVF SCH (09:00)
[2016-12-23] MEDS: UMECLIDINIUM 62.5 MCG/VILANTEROL 25 MCG INHALER INH SCH (09:00)
--- NOTE | 2016-12-23 11:01 | HHI.CCPN ---
Subjective Remarks/Hospital Course 61-year-old female. Date of admission 12/14/2016. Past records includes COPD/oxygen dependent, obstructive sleep apnea not using nocturnal CPAP , hypertension, morbid obesity. Hypertension, chronic kidney disease stage IV. She presents to [facility] 2 day history of shortness of breath. She is essentially in extremis 100 hour troponin emergency report. She is immediately placed on BiPAP however failed and was emergently endotracheally intubated. She required 100% FiO2 and was intermittently hypotensive the ED. CT head negative. Chest x-ray revealed possible vascular congestion. She is also noted of a calcium of 5.0. Elevated creatinine 5.1 with a baseline 1.9. she received 2 g calcium chloride and she received 20 mg IV Lasix. [employer] discontinued IV fluids and starting Bumex at 2 mg IV twice a day. 2-D echocardiogram revealed hyperdynamic state with EF of 65-70%. 12/15: - Afebrile. Off all vasopressors. 700 cc urine overnight. She is responding to fluids. Currently on midazolam drip. We'll attempt sedation vacation today if FiO2 decreased to around 50%. 12/16: Afebrile. Off all vasopressors. 1300 cc urine output past 24 hours. Nonoliguric. Currently on Versed and fentanyl drips. Moving all 4 extremities spontaneous. Will briefly attempt sedation vacation day but resedate BRIANA. 12/17: Patient had to be neuromuscularly paralyzed due to high peak pressures and hypoventilation. Started on Bumex drip overnight. Currently on 70% fio2, 10 PEEP , due to severe hypoxia. BUN/Creat 108/5, but urine output is adequate on Bumex drip-Nephrology wants to wait 24 hours prior to HD. Chest exam reveals severe bilateral expiratory wheezing 12/18: Patient remains critically severely hypoxemic. Good response to Bumex gtt. 5.1 L urine output in 24 hours. BUN/creatinine trending down 99/4. Potassium being replaced. Continue to wean FiO2 as tolerated remains on 55% with 12 of PEEP. I will discontinue neuromuscular blockade today 12/19: Remains critically ill but stable. FiO2 remains at 50%, PEEP just earliest 8. Urine output more than 2 L on Bumex infusion but BUN is increased to 111 creatinine stable at 4. Discussed with nephrology DC Bumex infusion and start scheduled Bumex 1 mg every 8 hours 12/20: Requiring high FiO2 at 60% without improvement remains critically ill. Worsening BUN/creatinine today 136/4.6. Urine output 1 L in 24 hours. We'll start hemodialysis today after placing Vas-Cath. Patient not tolerating sedation vacation due to ventilator synchrony 12/21: Requiring heavy sedation for vent synchrony. FiO2 down to 40%, PEEP 8. HD started yesterday, repeat today. Creatinine slightly improved with dialysis 12/22: remaining encephalopathic. hypoxia somewhat improved. severely hypertensive despite medications. KAILEE persists on HD. volume overloaded. remaining critically ill with multiple organ systems involved and off pathway. Subjective 12/23: no significant improvements. HD yesterday with 2L net negative. encephalopathy persists. off versed. weaning propofol. failing SBT. Cr still elevated. still severely oliguric. Objective Vital Signs Date Time Temp Pulse Resp B/P (MAP) Pulse Ox O2 Delivery O2 Flow Rate FiO2 12/23/16 10:00 84 12/23/16 08:24 93 45 12/23/16 08:00 98.0 17 170/81 (110) Intake and Output 12/23/16 12/23/16 12/24/16 08:00 16:00 00:00 Intake Total 530 ml Output Total 450 ml Balance 80 ml Result Diagram: 12/23/16 0340 12/23/16 0340 Imaging Last Impressions Chest X-Ray 12/15/16 0000 Signed Impressions: Service Date/Time: Thursday, December 15, 2016 03:58 - CONCLUSION: 1. Support apparatus in good position. Bilateral airspace consolidation. Freddie Tubbs MD Renal Ultrasound 12/14/16 0000 Signed Impressions: Service Date/Time: Wednesday, December 14, 2016 18:21 - CONCLUSION: Medical renal disease with echogenic kidneys. There is some atrophy of the right kidney. Nirav Camacho MD Head CT 12/14/16 0000 Signed Impressions: Service Date/Time: Wednesday, December 14, 2016 17:38 - CONCLUSION: Negative for an acute process. Sander Resendiz MD FACR Objective Remarks GENERAL: 60-year-old female, critically, ill orotracheally intubated SKIN: Warm and dry. No rash. Poor skin turgor. HEAD: Atraumatic. Normocephalic. EYES: Pupils equal and round about 3 mm bilaterally and reactive. No scleral icterus. No injection or drainage. ENT: No nasal bleeding or discharge. Mucous membranes pink and moist. Orotracheally intubated NECK: Trachea midline. JVD unable to assess due to obesity. RIJ vascath site without hematoma CARDIOVASCULAR: Regular rate and rhythm. RESPIRATORY: Diminished breath sounds throughout. Symmetrical excursion. Mild wheezing GASTROINTESTINAL: Abdomen soft, non-tender, protuberant. MUSCULOSKELETAL: Extremities without significant peripheral edema. No obvious deformities. NEUROLOGICAL: Intubated heavily sedated with propofol fentanyl Opens eyes to sternal rub, very slight withdrawal to painful stimuli A/P Assessment and Plan Assessment: Morbidly obese 61yF with severe acute hypoxic and hypercarbic respiratory failure, acute kidney injury requiring renal replacement therapy, metabolic encephalopathy. not improving on pathway. if we withdraw support, she will . daily SBTs, but failing for hypoxia, distress, and altered mental status. on HD. Very hypertensive despite multiple anti-hypertensives. Prognosis guarded at best. may need to pursue tracheostomy in the future. Neuro/Psych: Toxic metabolic Encephalopathy - likely metabolic/CO2 retention Restless like syndrome Diabetic neuropathy Continue Fentanyl and propofol infusions. daily sedation vacation. Scheduled Dilaudid started 12/17/16 due to persistent hypertension responding to fentanyl bolus CT brain 12/14 revealed no acute intracranial findings Acetaminophen for fever, Holding gabapentin 300 mg 3 times a day in light of altered mental status CV: Uncontrolled hypertension- persistent History of hypertension History dyslipidemia slightly improved hypertension. Currently on hydralazine 100 3 times a day,Isordil mill grams 3 times a day. Procardia at 40mg every 8 hours and clonidine 0.3 milligram TID. Labetalol 200mg po q8hr. add breakthrough labetalol and hydralazine iv. Home medications include lisinopril 5 mill grams daily, metoprolol 50 mill grams twice a day, clonidine 0.1 mg 3 times a day, nifedipine 60 mill grams every 12 hours, Imdur 30 mg daily and hydralazine 100 mg 3 times daily. EKG showed normal sinus rhythm. No acute ST-T changes. Specifically no QT prolongation setting of hypocalcemia Echocardiogram 2015 EF 55-60%. No regional wall motion abnormality. LEXIE- 61 mmHg. Mild MR. Echocardiogram 12/14/16 - EF 65-70%. No regional wall motion abnormality. Hyperdynamic state Resp: Acute hypoxemic respiratory failure Severe COPD/O2 dependent, with acute exacerbation HERACLIO/no CPAP at home Probable community-acquired pneumonia PRVC AC. wean fio2 for spo2 > 88% Ventilator bundle, Budesonide 0.5 mg/2 mL one inhalation twice a day Keep vent rate less than 16 breaths per minute to avoid air trapping, patient has very prolonged expiratory phase Tolerate hypercapnia, tolerate pH 7.2. Albuterol/ipratropium every 4 hours with albuterol hours is every 2 hours when necessary Methylprednisolone 40 mg IV every 6 hours At home Anoro Ellipta 62.5/25 one inhalation daily and Symbicort 160/4.5 2 puffs every 12 hours with as needed albuterol Chest x-ray revealed possible pulmonary edema with bilateral lower lobe infiltrate/atelectasis Flolan Dcd 12/17/16 continue daily SBTs. failing for mental status and tachypnea. will likely need trach if she continues to fail. GI: Elevated transaminases Nepro. Famotidine for GI prophylaxis Docusate sodium/Senokot for bowel regimen. MiraLAX and lactulose Avoid hepatotoxic medications. Trending downward. CPK and hepatitis panel - negative Had BM 12/19 TFs : Chad for accurate I's and O's in a critically ill patient Endo: Diabetes mellitus with neuropathy Hyperglycemia At home on insulin detemir 10 units twice a day with sliding scale insulin. on sliding scale insulin with Accu-Cheks every 6 hours to maintain euglycemia/ high regimen Novulog Renal: Acute kidney injury in the setting of Chronic kidney disease stage 4 - AIN versus medication requiring renal replacement BUN/cr 136/4.6 with diminishing urine output. on IHD. Nephrology following. Urine eosinophils - 0-2 and electrolytes FeNa 0.4 Renal ultrasound 12/14 indicative of medical renal disease with atrophied right kidney Monitor urine output. Accurate I's and O's Noted LIZANDRO 1-80 last admission/speckled. Heme: Normocytic anemia Monitor CBC daily ID: Probable community-acquired pneumonia s/p full course of abx. d/c zosyn and levaquin. UA negative/, sputum neg to date. Blood cultures 12/14 and 12/15 negative to date. Negative urine pneumococcal and Legionella antigens FEN: Hypocalcemia Hyponatremia Hyperphosphatemia Replace electrolytes as clinically indicated per ICU likely protocol Phosphorus elevated 5.9, PTH elevated 705.7, vitamin D /25 pending and vitamin D 25 -12.3 LOW. Replacement to be ordered by Nephrology Likely from underlying renal disease. Replace calcium IV as needed. Continue Phoslo and Ca carbonate Access Left IJ CVL 12/14-12/20 RIJ Vascath 12/20 Prophylaxis - GI -famotidine - DVT - SCD/heparin subcutaneous Patient remains critically, with severe hypoxemic respiratory failure and multiorgan failure. Not improving. José Luis Perez MD Dec 23, 2016 11:01
--- NOTE | 2016-12-23 14:12 | HHI.PR ---
Subjective Remarks ON THE VENT SEDATED O2 SAT 96% Objective Vital Signs Date Time Temp Pulse Resp B/P (MAP) Pulse Ox O2 Delivery O2 Flow Rate FiO2 12/23/16 12:43 99 45 12/23/16 10:00 84 12/23/16 08:24 93 45 12/23/16 08:00 45 12/23/16 08:00 84 12/23/16 08:00 98.0 79 17 170/81 (110) 97 12/23/16 06:00 85 12/23/16 06:00 85 141/84 (103) 163/81 (108) 12/23/16 04:00 90 12/23/16 04:00 95 45 12/23/16 04:00 45 12/23/16 04:00 99.8 90 19 157/95 (115) 94 178/96 (123) 12/23/16 02:00 78 12/23/16 00:00 80 12/23/16 00:00 80 136/82 (100) 148/74 (98) 12/23/16 00:00 98.7 80 17 136/82 (100) 93 148/74 (98) 12/23/16 00:00 45 12/22/16 23:10 93 45 12/22/16 22:00 84 12/22/16 20:30 94 45 12/22/16 20:00 88 12/22/16 20:00 99.0 88 17 150/82 (104) 95 163/75 (104) 12/22/16 20:00 45 12/22/16 18:00 86 155/79 (104) 179/78 (111) 12/22/16 18:00 86 12/22/16 18:00 86 18 155/79 (104) 95 179/78 (111) 12/22/16 17:00 80 18 154/81 (105) 95 175/76 (109) 12/22/16 17:00 80 12/22/16 16:00 78 12/22/16 16:00 78 19 146/75 (98) 95 164/72 (102) 12/22/16 16:00 99.3 12/22/16 16:00 45 12/22/16 15:00 82 12/22/16 14:59 96 45 I/O 9/9/17 9/912/22/16 12/23/16 12/23/16 12/23/16 07:00 15:00 23:00 07:00 15:00 23:00 Intake Total 1138 ml 350 ml 481 ml 530 ml Output Total 850 ml 250 ml 450 ml Balance 288 ml 350 ml 231 ml 80 ml Intake IV Total 150 ml 350 ml 330 ml Tube Feeding 838 ml 481 ml 200 ml Other 150 ml Output Urine Total 850 ml 250 ml 150 ml Stool Total 0 ml Gastric Drainage Total 300 ml # Bowel Movements 2 Result Diagram: 12/23/16 0340 12/23/16 034 Objective Remarks Laboratory Tests Test 12/20/16 05:40 12/20/16 12:25 12/20/16 12:38 12/20/16 12:50 Red Blood Count 3.02 MIL/MM3 (4.00-5.30) 2.96 MIL/MM3 (4.00-5.30) Hemoglobin 9.0 GM/DL (11.6-15.3) 8.8 GM/DL (11.6-15.3) Hematocrit 27.6 % (35.0-46.0) 27.1 % (35.0-46.0) Neutrophils (%) (Auto) 91.3 % (16.0-70.0) 90.9 % (16.0-70.0) Lymphocytes (%) (Auto) 2.4 % (9.0-44.0) 3.2 % (9.0-44.0) Lymphocytes # (Auto) 0.2 TH/MM3 (1.0-4.8) 0.3 TH/MM3 (1.0-4.8) Blood Urea Nitrogen 136 MG/DL (7-18) Creatinine 4.61 MG/DL (0.50-1.00) Random Glucose 151 MG/DL (74-106) Albumin 2.6 GM/DL (3.4-5.0) Calcium Level 5.9 MG/DL (8.5-10.1) Alanine Aminotransferase (ALT/SGPT) 67 U/L (10-53) Sodium Level 134 MEQ/L (136-145) Estimat Glomerular Filtration Rate 10 ML/MIN (>89) Protein Corrected Calcium 6.1 MG/DL (8.5-10.1) Venous Blood pH 7.22 (7.360-7.400) Venous Blood Partial Pressure CO2 59 mmHg (44-48) Venous Blood Partial Pressure O2 86 mmHg (35-40) Venous Blood Oxygen Saturation 93 % (70-76) Venous Blood Base Excess -3.0 mmol/L (-2-2) Blood Gas Base Excess -4.1 mmol/L (-2-2) Arterial Blood pH 7.24 (7.380-7.420) Arterial Blood Partial Pressure CO2 54 mmHg (38-42) Arterial Blood Partial Pressure O2 335 mmHg (61-120) Blood Gas Hemoglobin 9.0 G/DL (12.0-16.0) Neutrophils # (Auto) 8.2 TH/MM3 (1.8-7.7) Test 12/21/16 05:32 12/21/16 13:30 Red Blood Count 2.90 MIL/MM3 (4.00-5.30) Hemoglobin 8.5 GM/DL (11.6-15.3) Hematocrit 26.4 % (35.0-46.0) Neutrophils (%) (Auto) 96.6 % (16.0-70.0) Lymphocytes (%) (Auto) 1.1 % (9.0-44.0) Neutrophils # (Auto) 8.3 TH/MM3 (1.8-7.7) Lymphocytes # (Auto) 0.1 TH/MM3 (1.0-4.8) Blood Urea Nitrogen 115 MG/DL (7-18) Creatinine 3.41 MG/DL (0.50-1.00) Random Glucose 156 MG/DL (74-106) Total Protein 6.3 GM/DL (6.4-8.2) Albumin 2.4 GM/DL (3.4-5.0) Calcium Level 6.4 MG/DL (8.5-10.1) Estimat Glomerular Filtration Rate 14 ML/MIN (>89) Protein Corrected Calcium 6.8 MG/DL (8.5-10.1) Medications and IVs GENERAL: SKIN: Warm and dry. HEAD: Atraumatic. Normocephalic. EYES: Pupils equal and round. No scleral icterus. No injection or drainage. ENT: No nasal bleeding or discharge. Mucous membranes pink and moist. NECK: Trachea midline. No JVD. CARDIOVASCULAR: Regular rate and rhythm. RESPIRATORY: No accessory muscle use. Clear to auscultation. Breath sounds equal bilaterally. GASTROINTESTINAL: Abdomen soft, non-tender, nondistended. Hepatic and splenic margins not palpable. MUSCULOSKELETAL: Extremities without clubbing, cyanosis, or edema. No obvious deformities. NEUROLOGICAL: Awake and alert. No obvious cranial nerve deficits. Motor grossly within normal limits. Five out of 5 muscle strength in the arms and legs. Normal speech. PSYCHIATRIC: Appropriate mood and affect; insight and judgment normal. 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
[2016-12-24] VITALS (19 sets, daily range): BP systolic 127–165; BP diastolic 68–87; PULSE 69–97; RESP 16–21; TEMP 97.8–99.4; O2SAT 92–98
[2016-12-24] MEDS: RESP: ALBUTEROL 2.5 MG/IPRATROPIUM 0.5 MG NEB (SCH) INH ×7 (00:50→23:50)
[2016-12-24] MEDS: PROPOFOL 1000 MG/100 ML INJ 100 ML IV PRN ×2 (00:55→09:00)
[2016-12-24] MEDS: HYDROmorphone HCL 2 MG TAB PO SCH ×4 (00:56→18:00)
[2016-12-24] MEDS: fentaNYL DRIP 250 ML IV PRN ×2 (01:02→23:39)
[2016-12-24] MEDS: SODIUM CHLOR 0.9% 1000 ML INJ 1,000 ML IV SCH (03:00)
[2016-12-24] MEDS: CHLORHEXIDINE GLUCONATE 2 % 1 PACK (2 CLOTHS) TOP SCH (04:00)
[2016-12-24] MEDS: LABETALOL HCL 200 MG TAB PO SCH ×3 (04:00→21:15)
[2016-12-24] MEDS: INSULIN ASPART SUPPLEMENTAL SCALE SQ SCH ×6 (04:00→20:00)
[2016-12-24 04:11] LABS: HEMATOCRIT 26.7 % (35.0-46.0); MEAN CORPUSCULAR HEMOGLOBIN 29.8 PG (27.0-34.0); MEAN CORPUSCULAR HGB CONC 33.1 % (32.0-36.0); PLATELET COUNT 142 TH/MM3 (150-450); RED BLOOD COUNT 2.96 MIL/MM3 (4.00-5.30); REVIEW FLAG FINAL; WHITE BLOOD COUNT 12.4 TH/MM3 (4.0-11.0)
[2016-12-24 04:35] LABS: BICARBONATE 30.3 MEQ/L (21.0-32.0); POTASSIUM 3.9 MEQ/L (3.5-5.1)
[2016-12-24] MEDS: cloNIDine HCL 0.3 MG TAB PO SCH ×3 (05:31→21:19)
[2016-12-24] MEDS: methylPREDNISolone SOD SUCC 40 MG/1 ML VIAL IV PUSH SCH ×3 (05:31→21:19)
[2016-12-24] MEDS: HEPARIN SODIUM - SQ 10,000 UNITS/ML VIAL SQ SCH ×2 (05:32→17:00)
[2016-12-24] MEDS: ISOSORBIDE DINITRATE 10 MG TAB PO SCH ×3 (05:32→21:19)
[2016-12-24] MEDS: NIFEdipine 20 MG CAP PO SCH ×3 (05:32→21:19)
[2016-12-24] MEDS: RESP: BUDESONIDE 0.5 MG/2 ML NEB NEB SCH ×2 (07:52→21:10)
[2016-12-24] MEDS: CHLORHEXIDINE 0.12% (ORAL KIT) 15 ML CUP MT SCH ×2 (08:00→21:15)
[2016-12-24] MEDS: CALCITRIOL 0.25 MCG CAP NG SCH (09:00)
[2016-12-24] MEDS: ARTIFICIAL TEARS OPTH OINT 3.5 APPLIC/3.5 GM TUBO EACH EYE SCH ×2 (09:00→21:16)
[2016-12-24] MEDS: SODIUM CHLORIDE 0.9% FLUSH 10 ML FLUSH IV FLUSH SCH ×2 (09:00→21:17)
[2016-12-24] MEDS: SODIUM CHLORIDE 0.9% FLUSH 10 ML FLUSH IVF SCH (09:00)
[2016-12-24] MEDS: LACTULOSE SYRUP 20 GM/30 ML CUP OG-TUBE SCH ×2 (09:00→21:18)
[2016-12-24] MEDS: INSULIN DETEMIR 100 UNITS/ML VIAL SQ SCH ×2 (09:00→21:00)
[2016-12-24] MEDS: ARTIFICIAL TEARS OPTH SOLN 15 ML BTL EACH EYE SCH ×3 (09:00→18:00)
[2016-12-24] MEDS: UMECLIDINIUM 62.5 MCG/VILANTEROL 25 MCG INHALER INH SCH (09:00)
[2016-12-24] MEDS: JUVEN POWDER 1 PACK G-TUBE SCH ×2 (09:00→21:00)
[2016-12-24] MEDS: CALCIUM CARBONATE 1.25 GM (CA 500 MG) TAB PO SCH ×2 (09:00→21:00)
[2016-12-24] MEDS: CHOLECALCIFEROL (VIT D3) 1000 UNIT TAB NG SCH (09:00)
[2016-12-24] MEDS: POLYETHYLENE GLYCOL 17 GM PKG OG-TUBE SCH ×2 (09:00→21:18)
[2016-12-24] MEDS: DOCUSATE SODIUM 50 MG/SENNA 8.6 MG TAB PO SCH ×2 (09:00→21:18)
[2016-12-24] MEDS: FAMOTIDINE 20 MG/2 ML VIAL IV PUSH SCH ×2 (09:01→21:18)
[2016-12-24] MEDS: CALCIUM ACETATE 667 MG CAP PO SCH ×3 (09:01→18:00)
--- NOTE | 2016-12-24 11:45 | HHI.CCPN ---
Subjective Remarks/Hospital Course 61-year-old female. Date of admission 12/14/2016. Past records includes COPD/oxygen dependent, obstructive sleep apnea not using nocturnal CPAP , hypertension, morbid obesity. Hypertension, chronic kidney disease stage IV. She presents to [facility] 2 day history of shortness of breath. She is essentially in extremis 100 hour troponin emergency report. She is immediately placed on BiPAP however failed and was emergently endotracheally intubated. She required 100% FiO2 and was intermittently hypotensive the ED. CT head negative. Chest x-ray revealed possible vascular congestion. She is also noted of a calcium of 5.0. Elevated creatinine 5.1 with a baseline 1.9. she received 2 g calcium chloride and she received 20 mg IV Lasix. 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 2-D echocardiogram revealed hyperdynamic state with EF of 65-70%. 12/15: - Afebrile. Off all vasopressors. 700 cc urine overnight. She is responding to fluids. Currently on midazolam drip. We'll attempt sedation vacation today if FiO2 decreased to around 50%. 12/16: Afebrile. Off all vasopressors. 1300 cc urine output past 24 hours. Nonoliguric. Currently on Versed and fentanyl drips. Moving all 4 extremities spontaneous. Will briefly attempt sedation vacation day but resedate BRIANA. 12/17: Patient had to be neuromuscularly paralyzed due to high peak pressures and hypoventilation. Started on Bumex drip overnight. Currently on 70% fio2, 10 PEEP , due to severe hypoxia. BUN/Creat 108/5, but urine output is adequate on Bumex drip-Nephrology wants to wait 24 hours prior to HD. Chest exam reveals severe bilateral expiratory wheezing 12/18: Patient remains critically severely hypoxemic. Good response to Bumex gtt. 5.1 L urine output in 24 hours. BUN/creatinine trending down 99/4. Potassium being replaced. Continue to wean FiO2 as tolerated remains on 55% with 12 of PEEP. I will discontinue neuromuscular blockade today 12/19: Remains critically ill but stable. FiO2 remains at 50%, PEEP just earliest 8. Urine output more than 2 L on Bumex infusion but BUN is increased to 111 creatinine stable at 4. Discussed with nephrology DC Bumex infusion and start scheduled Bumex 1 mg every 8 hours 12/20: Requiring high FiO2 at 60% without improvement remains critically ill. Worsening BUN/creatinine today 136/4.6. Urine output 1 L in 24 hours. We'll start hemodialysis today after placing Vas-Cath. Patient not tolerating sedation vacation due to ventilator synchrony 12/21: Requiring heavy sedation for vent synchrony. FiO2 down to 40%, PEEP 8. HD started yesterday, repeat today. Creatinine slightly improved with dialysis 12/22: remaining encephalopathic. hypoxia somewhat improved. severely hypertensive despite medications. KAILEE persists on HD. volume overloaded. remaining critically ill with multiple organ systems involved and off pathway. 12/23: no significant improvements. HD yesterday with 2L net negative. encephalopathy persists. off versed. weaning propofol. failing SBT. Cr still elevated. still severely oliguric. Subjective 12/24: despite negative fluid balance, still very critically ill, encephalopathic , and unable to tolerate SBT. will likely require tracheostomy. Objective Vital Signs Date Time Temp Pulse Resp B/P (MAP) Pulse Ox O2 Delivery O2 Flow Rate FiO2 12/24/16 10:00 81 12/24/16 08:00 98.0 17 160/74 (102) 97 12/24/16 08:00 45 Intake and Output 12/24/16 12/24/16 12/25/16 08:00 16:00 00:00 Intake Total 0 ml Output Total 1000 ml Balance -1000 ml Result Diagram: 12/24/16 0305 12/24/16 0305 Imaging Last Impressions Chest X-Ray 12/15/16 0000 Signed Impressions: Service Date/Time: Thursday, December 15, 2016 03:58 - CONCLUSION: 1. Support apparatus in good position. Bilateral airspace consolidation. Freddie Tubbs MD Renal Ultrasound 12/14/16 0000 Signed Impressions: Service Date/Time: Wednesday, December 14, 2016 18:21 - CONCLUSION: Medical renal disease with echogenic kidneys. There is some atrophy of the right kidney. Nirav Camacho MD Head CT 12/14/16 0000 Signed Impressions: Service Date/Time: Wednesday, December 14, 2016 17:38 - CONCLUSION: Negative for an acute process. Sander Resendiz MD FACR Objective Remarks GENERAL: 60-year-old female, critically, ill orotracheally intubated SKIN: Warm and dry. No rash. Poor skin turgor. HEAD: Atraumatic. Normocephalic. EYES: Pupils equal and round about 3 mm bilaterally and reactive. No scleral icterus. No injection or drainage. ENT: No nasal bleeding or discharge. Mucous membranes pink and moist. Orotracheally intubated NECK: Trachea midline. JVD unable to assess due to obesity. RIJ vascath site without hematoma CARDIOVASCULAR: Regular rate and rhythm. RESPIRATORY: Diminished breath sounds throughout. Symmetrical excursion. Mild wheezing GASTROINTESTINAL: Abdomen soft, non-tender, protuberant. MUSCULOSKELETAL: Extremities without significant peripheral edema. No obvious deformities. NEUROLOGICAL: Intubated heavily sedated with propofol fentanyl Opens eyes to sternal rub, very slight withdrawal to painful stimuli A/P Assessment and Plan Assessment: Morbidly obese 61yF with severe acute hypoxic and hypercarbic respiratory failure, acute kidney injury requiring renal replacement therapy, metabolic encephalopathy. not improving on pathway. if we withdraw support, she will . daily SBTs, but failing for hypoxia, distress, and altered mental status. on HD. Prognosis guarded at best. may need to pursue tracheostomy in the future. Neuro/Psych: Toxic metabolic Encephalopathy - likely metabolic/CO2 retention Restless like syndrome Diabetic neuropathy Continue Fentanyl and propofol infusions. daily sedation vacation. Scheduled Dilaudid started 12/17/16 due to persistent hypertension responding to fentanyl bolus CT brain 12/14 revealed no acute intracranial findings Acetaminophen for fever, Holding gabapentin 300 mg 3 times a day in light of altered mental status CV: Uncontrolled hypertension- persistent History of hypertension History dyslipidemia slightly improved hypertension. Currently on hydralazine 100 3 times a day,Isordil mill grams 3 times a day. Procardia at 40mg every 8 hours and clonidine 0.3 milligram TID. Labetalol 200mg po q8hr. breakthrough labetalol and hydralazine iv. Home medications include lisinopril 5 mill grams daily, metoprolol 50 mill grams twice a day, clonidine 0.1 mg 3 times a day, nifedipine 60 mill grams every 12 hours, Imdur 30 mg daily and hydralazine 100 mg 3 times daily. EKG showed normal sinus rhythm. No acute ST-T changes. Specifically no QT prolongation setting of hypocalcemia Echocardiogram 2016 EF 55-60%. No regional wall motion abnormality. LEXIE- 61 mmHg. Mild MR. Echocardiogram 12/14/16 - EF 65-70%. No regional wall motion abnormality. Hyperdynamic state Resp: Acute hypoxemic respiratory failure Severe COPD/O2 dependent, with acute exacerbation HERACLIO/no CPAP at home Probable community-acquired pneumonia PRVC AC. wean fio2 for spo2 > 88% Ventilator bundle, Budesonide 0.5 mg/2 mL one inhalation twice a day Keep vent rate less than 16 breaths per minute to avoid air trapping, patient has very prolonged expiratory phase Tolerate hypercapnia, tolerate pH 7.2. Albuterol/ipratropium every 4 hours with albuterol hours is every 2 hours when necessary Methylprednisolone 40 mg IV every 6 hours At home Anoro Ellipta 62.5/25 one inhalation daily and Symbicort 160/4.5 2 puffs every 12 hours with as needed albuterol Chest x-ray revealed possible pulmonary edema with bilateral lower lobe infiltrate/atelectasis Flolan Dcd 12/17/16 continue daily SBTs. failing for mental status and tachypnea. will likely need trach if she continues to fail. GI: Elevated transaminases Nepro. Famotidine for GI prophylaxis Docusate sodium/Senokot for bowel regimen. MiraLAX and lactulose Avoid hepatotoxic medications. Trending downward. CPK and hepatitis panel - negative Had BM 12/19 TFs : Chad for accurate I's and O's in a critically ill patient Endo: Diabetes mellitus with neuropathy Hyperglycemia At home on insulin detemir 10 units twice a day with sliding scale insulin. on sliding scale insulin with Accu-Cheks every 6 hours to maintain euglycemia/ high regimen Novulog Renal: Acute kidney injury in the setting of Chronic kidney disease stage 4 - AIN versus medication requiring renal replacement BUN/cr 136/4.6 with diminishing urine output. on IHD. Nephrology following. Urine eosinophils - 0-2 and electrolytes FeNa 0.4 Renal ultrasound 12/14 indicative of medical renal disease with atrophied right kidney Monitor urine output. Accurate I's and O's Noted LIZANDRO 1-80 last admission/speckled. Heme: Normocytic anemia Monitor CBC daily ID: Probable community-acquired pneumonia s/p full course of abx. d/c zosyn and levaquin. UA negative/, sputum neg to date. Blood cultures 12/14 and 12/15 negative to date. Negative urine pneumococcal and Legionella antigens FEN: Hypocalcemia Hyponatremia Hyperphosphatemia Replace electrolytes as clinically indicated per ICU likely protocol Phosphorus elevated 5.9, PTH elevated 705.7, vitamin D 05/09 pending and vitamin D 25 -12.3 LOW. Replacement to be ordered by Nephrology Likely from underlying renal disease. Replace calcium IV as needed. Continue Phoslo and Ca carbonate Access Left IJ CVL 12/14-12/20 RIJ Vascath 12/20 Prophylaxis - GI -famotidine - DVT - SCD/heparin subcutaneous Patient remains critically, with severe hypoxemic respiratory failure and multiorgan failure. Not improving. José Luis Perez MD Dec 24, 2016 11:44
[2016-12-24] MEDS: hydrALAZINE HCL 100 MG TAB PO SCH ×2 (13:40→21:19)
--- NOTE | 2016-12-24 15:08 | HHI.NPPN ---
Subjective Renal Failure: Chronic, Acute Interval History she is non oliguric. Creatinine about the same as yesterday. BUN is higher. Encephalopathy persists. Respiratory failure persists. Last dialysis was on the . Review of Systems General General Remarks unable to obtain Objective Data Data Vital Signs Date Time Temp Pulse Resp B/P (MAP) Pulse Ox O2 Delivery O2 Flow Rate FiO2 12/24/16 12:05 97 45 12/24/16 12:00 97.8 83 18 160/81 (107) 97 12/24/16 12:00 45 12/24/16 12:00 97 162/81 (108) 12/24/16 12:00 74 12/24/16 10:00 81 12/24/16 08:00 98.0 83 17 160/74 (102) 97 12/24/16 08:00 45 12/24/16 08:00 81 12/24/16 07:53 92 45 12/24/16 06:00 79 12/24/16 06:00 79 12/24/16 04:00 81 12/24/16 04:00 45 12/24/16 04:00 98.2 81 16 134/78 (96) 93 147/76 (99) 12/24/16 03:30 93 45 12/24/16 02:00 82 12/24/16 00:50 93 45 12/24/16 00:00 99.4 79 16 127/72 (90) 93 143/70 (94) 12/24/16 00:00 81 12/24/16 00:00 79 12/24/16 00:00 45 12/23/16 22:00 81 12/23/16 20:00 83 12/23/16 20:00 98.8 83 16 131/80 (97) 95 162/81 (108) 12/23/16 20:00 45 12/23/16 19:59 95 45 12/23/16 18:00 97 159/79 (105) 12/23/16 18:00 83 12/23/16 16:00 97 162/71 (101) 12/23/16 16:00 45 12/23/16 16:00 83 12/23/16 16:00 99.5 80 18 151/74 (99) 97 12/23/16 15:43 94 45 -: 12/24/16 0305 12/24/16 0305 Tubes & Lines: Vas-Cath, Bonilla Tubes & Lines Comment A line right wrist; TLC left IJ Drip Comment fentanyl, propofol, versed Physical Exam General Appearance: Well Developed, Comfortable, Obese Eyes Eye Exam: Pupils Equal Throat Throat Exam: Oral Mucosa [place] & Moist Neck Neck Exam: Neck Supple Pulmonary Resp Exam: Breath Sounds Equal, No Distress, Rhonchi, Decreased Bases, Diminished Breath Sounds Cardiology CV Exam: Regular, Normal Sinus Rhythm Gastrointestinal/Abdomen GI Exam: Soft, Non-Tender, Bowel Sounds Present, Distended Musculoskeletal MS Exam: Joints Intact, Normal Tone, Unable to Ambulate Integumentary Skin Exam: Warm, Dry Extremeties Extremities Exam: Pedal Pulses Palpable, Moderate Edema, Pitting Edema Neurologic Neuro Exam: Unresponsive, Sedated Assessment/Plan Assessment Summary: KAILEE/Acute Renal Failure, Acute Tubular Necrosis, Fluid/ Volume Overload, Hypertension, Diabetes Mellitus Problem List: (1) Acute renal failure ICD Codes: N17.9 - Acute kidney failure, unspecified Status: Acute Plan: 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 HD initiated on the , Creatinine has not changed much in the past 3 days. Suspend dialysis today. Avoid nephrotoxic agents. Monitor. Dialysis as needed. (2) HCAP (healthcare-associated pneumonia) ICD Codes: J18.9 - Healthcare-associated pneumonia Status: Acute Plan: off antibiotics. (3) Acute respiratory failure ICD Codes: J96.00 - Acute respiratory failure Status: Acute Plan: Ventilator support. (4) DM (diabetes mellitus) ICD Codes: E11.9 - Type 2 diabetes mellitus without complications Status: Chronic Plan: continue insulin therapy goal 140-180 mg/dL (5) Hypocalcemia ICD Codes: E83.51 - Hypocalcemia Plan: PTH is high. She has secondary hyperparathyroidism, with hyperphosphatemia and hypocalcemia. She is on Calcium acetate TID via her feeding tube. Hypocalcemia persists, but improved. Also on Vitamin D3 and calcitriol Problem Qualifiers (1) Acute renal failure: Qualified Codes: N17.9 - Acute kidney failure, unspecified (2) Acute respiratory failure: Qualified Codes: J96.01 - Acute respiratory failure with hypoxia; J96.02 - Acute respiratory failure with hypercapnia (3) DM (diabetes mellitus): Qualified Codes: E13.9 - Other specified diabetes mellitus without complications Hoskote,Thomas MD Dec 24, 2016 15:08
--- NOTE | 2016-12-24 15:10 | HHI.PR ---
Subjective Remarks Sedated and on the vent at 45 % FIo2 . CXR shows mild vascular congestion Not on dialysis. ABG this am was adequate Has no fever. sedated.with fentanyl/ Diprivan Objective Vital Signs Date Time Temp Pulse Resp B/P (MAP) Pulse Ox O2 Delivery O2 Flow Rate FiO2 12/24/16 12:05 97 45 12/24/16 12:00 97.8 83 18 160/81 (107) 97 12/24/16 12:00 45 12/24/16 12:00 97 162/81 (108) 12/24/16 12:00 74 12/24/16 10:00 81 12/24/16 08:00 98.0 83 17 160/74 (102) 97 12/24/16 08:00 45 12/24/16 08:00 81 12/24/16 07:53 92 45 12/24/16 06:00 79 12/24/16 06:00 79 12/24/16 04:00 81 12/24/16 04:00 45 12/24/16 04:00 98.2 81 16 134/78 (96) 93 147/76 (99) 12/24/16 03:30 93 45 12/24/16 02:00 82 12/24/16 00:50 93 45 12/24/16 00:00 99.4 79 16 127/72 (90) 93 143/70 (94) 12/24/16 00:00 81 12/24/16 00:00 79 12/24/16 00:00 45 12/23/16 22:00 81 12/23/16 20:00 83 12/23/16 20:00 98.8 83 16 131/80 (97) 95 162/81 (108) 12/23/16 20:00 45 12/23/16 19:59 95 45 12/23/16 18:00 97 159/79 (105) 12/23/16 18:00 83 12/23/16 16:00 97 162/71 (101) 12/23/16 16:00 45 12/23/16 16:00 83 12/23/16 16:00 99.5 80 18 151/74 (99) 97 12/23/16 15:43 94 45 I/O 12/23/16 12/23/16 12/23/16 12/24/16 12/24/1611/17 07:00 15:00 23:00 07:00 15:00 23:00 Intake Total 530 ml 214 ml 0 ml Output Total 450 ml 600 ml 1000 ml Balance 80 ml -386 ml -1000 ml Intake IV Total 330 ml 214 ml 0 ml Tube Feeding 200 ml 0 ml Output Urine Total 150 ml 300 ml 1000 ml Stool Total 0 ml 0 ml Gastric Drainage Total 300 ml 300 ml # Bowel Movements 3 Result Diagram: 12/24/16 0305 12/24/16 0305 Objective Remarks PHYSICAL EXAMINATION GENERAL: This is a middle-aged obese white female who is intubated, sedated, assisting the ventilator. HEENT: Normocephalic. Pupils reactive and equal. Nasal mucosae clear. NECK: Supple. No bruits or thyroid enlargement or lymphadenopathy. Trachea midline. CHEST: Equal movements with scattered wheezes and prolonged expirations,and occ crackles at the bases. HEART: The heart sounds are irregular, S1-S2. No murmur. No S3. ABDOMEN: Soft and slightly distended. Bowel sounds are active. No organomegaly. EXTREMITIES: minimal edema. Reflexes are 1+. NEUROLOGIC: The patient is sedated. SKIN: Negative. Assessment and Plan Assessment and Plan IMPRESSION 1. Hypercapnic respiratory failure. 2. Severe COPD with emphysema. 3. History of diabetes mellitus. 4. Hypertension. 5. History of obstructive sleep apnea. 6. CKD 1V/KAILEE Plan : 1. Continue on Vent support and wean vent rate and FIO2 . 2. Cont Antibiotics.per ID 3. ABG in am 4. Nebs q6h with duoneb 5. CBC,CXR ,BMP in am 6. Tube feeds at 40 CC 7. Cont Solumedrol 40 mg IV Q8H 8. Wean sedation with Diprivan/Fentanyl 9. CPAP trial in am. Heidi Villareal MD Dec 24, 2016 15:10
[2016-12-25] VITALS (22 sets, daily range): BP systolic 105–181; BP diastolic 61–89; PULSE 60–75; RESP 14–28; TEMP 97.2–98.6; O2SAT 92–96
[2016-12-25] MEDS: SODIUM CHLOR 0.9% 1000 ML INJ 1,000 ML IV SCH (03:00)
[2016-12-25] MEDS: RESP: ALBUTEROL 2.5 MG/IPRATROPIUM 0.5 MG NEB (SCH) INH ×5 (03:46→20:48)
[2016-12-25] MEDS: CHLORHEXIDINE GLUCONATE 2 % 1 PACK (2 CLOTHS) TOP SCH (04:00)
[2016-12-25] MEDS: INSULIN ASPART SUPPLEMENTAL SCALE SQ SCH ×6 (04:00→20:00)
[2016-12-25 05:29] LABS: HEMATOCRIT 25.2 % (35.0-46.0); MEAN CELL VOLUME 89.7 FL (80.0-100.0); MEAN CORPUSCULAR HGB CONC 33.4 % (32.0-36.0); PLATELET COUNT 154 TH/MM3 (150-450); RED BLOOD COUNT 2.81 MIL/MM3 (4.00-5.30); RED CELL DISTRIBUTION WIDTH 15.6 % (11.6-17.2); REVIEW FLAG FINAL; WHITE BLOOD COUNT 10.2 TH/MM3 (4.0-11.0)
[2016-12-25 05:48] LABS: BLOOD GAS BASE EXCESS 1.8 mmol/L (-2-2); BLOOD GAS HCO3 26 mmol/L (22-26); BLOOD GAS METHEMOGLOBIN 1.3 % (0-2); BLOOD GAS O2 HGB SATURATION 93 % (90-100); BLOOD GAS OXYGEN CONTENT 14.6 Vol % (12.0-20.0); BLOOD GAS PCO2 37 mmHg (38-42); BLOOD GAS PO2 86 mmHg (61-120); CRITICAL VALUE NO; TEMP CORR TO 98.6
[2016-12-25 05:49] LABS: DRAW SITE ART LINE; FIO2 45 %; OXYGEN DEVICE VENT; STAT NO; ULNAR PULSE PRESENT; VENT SETTINGS SEE COMMENTS
[2016-12-25] MEDS: LABETALOL HCL 200 MG TAB PO SCH ×3 (05:55→21:25)
[2016-12-25] MEDS: HEPARIN SODIUM - SQ 10,000 UNITS/ML VIAL SQ SCH ×2 (06:00→17:00)
[2016-12-25] MEDS: methylPREDNISolone SOD SUCC 40 MG/1 ML VIAL IV PUSH SCH ×3 (06:00→21:17)
[2016-12-25 06:01] LABS: BICARBONATE 29.1 MEQ/L (21.0-32.0); POTASSIUM 4.1 MEQ/L (3.5-5.1)
[2016-12-25] MEDS: HYDROmorphone HCL 2 MG TAB PO SCH ×4 (06:01→18:17)
[2016-12-25] MEDS: ISOSORBIDE DINITRATE 10 MG TAB PO SCH ×3 (06:01→21:17)
[2016-12-25] MEDS: hydrALAZINE HCL 100 MG TAB PO SCH ×3 (06:01→21:17)
[2016-12-25] MEDS: cloNIDine HCL 0.3 MG TAB PO SCH ×3 (06:01→21:17)
[2016-12-25] MEDS: NIFEdipine 20 MG CAP PO SCH ×2 (06:01→15:06)
[2016-12-25] MEDS: RESP: BUDESONIDE 0.5 MG/2 ML NEB NEB SCH ×2 (07:57→20:48)
[2016-12-25] MEDS: PROPOFOL 1000 MG/100 ML INJ 100 ML IV PRN ×2 (08:41→18:20)
[2016-12-25] MEDS: CHLORHEXIDINE 0.12% (ORAL KIT) 15 ML CUP MT SCH ×2 (08:47→20:00)
[2016-12-25] MEDS: SODIUM CHLORIDE 0.9% FLUSH 10 ML FLUSH IV FLUSH SCH ×2 (08:48→21:17)
[2016-12-25] MEDS: ARTIFICIAL TEARS OPTH SOLN 15 ML BTL EACH EYE SCH ×3 (08:48→18:00)
[2016-12-25] MEDS: ARTIFICIAL TEARS OPTH OINT 3.5 APPLIC/3.5 GM TUBO EACH EYE SCH (08:48)
[2016-12-25] MEDS: POLYETHYLENE GLYCOL 17 GM PKG OG-TUBE SCH ×2 (08:49→21:17)
[2016-12-25] MEDS: SODIUM CHLORIDE 0.9% FLUSH 10 ML FLUSH IVF SCH (08:49)
[2016-12-25] MEDS: CALCITRIOL 0.25 MCG CAP NG SCH (08:50)
[2016-12-25] MEDS: CHOLECALCIFEROL (VIT D3) 1000 UNIT TAB NG SCH (08:50)
[2016-12-25] MEDS: FAMOTIDINE 20 MG/2 ML VIAL IV PUSH SCH ×2 (08:50→21:17)
[2016-12-25] MEDS: DOCUSATE SODIUM 50 MG/SENNA 8.6 MG TAB PO SCH ×2 (08:50→21:27)
[2016-12-25] MEDS: LACTULOSE SYRUP 20 GM/30 ML CUP OG-TUBE SCH ×2 (08:51→21:16)
[2016-12-25] MEDS: CALCIUM ACETATE 667 MG CAP PO SCH ×3 (08:51→18:00)
[2016-12-25] MEDS: CALCIUM CARBONATE 1.25 GM (CA 500 MG) TAB PO SCH ×2 (09:00→21:17)
[2016-12-25] MEDS: UMECLIDINIUM 62.5 MCG/VILANTEROL 25 MCG INHALER INH SCH (09:00)
[2016-12-25] MEDS: INSULIN DETEMIR 100 UNITS/ML VIAL SQ SCH ×2 (09:00→21:00)
[2016-12-25] MEDS: JUVEN POWDER 1 PACK G-TUBE SCH ×2 (09:00→21:00)
[2016-12-25 09:08] LABS: BLOOD GAS BASE EXCESS 1.8 mmol/L (-2-2); BLOOD GAS CARBOXYHEMOGLOBIN 1.8 % (0-4); BLOOD GAS HCO3 26 mmol/L (22-26); BLOOD GAS METHEMOGLOBIN 1.3 % (0-2); BLOOD GAS O2 HGB SATURATION 92 % (90-100); BLOOD GAS OXYGEN CONTENT 15.5 Vol % (12.0-20.0); BLOOD GAS PCO2 41 mmHg (38-42); BLOOD GAS PO2 82 mmHg (61-120); TEMP CORR TO 98.6
[2016-12-25 09:09] LABS: CRITICAL VALUE NO; OXYGEN DEVICE VENTILATOR
[2016-12-25 09:10] LABS: DRAW SITE ART LINE; FIO2 40 %; NUMBER OF ARTERIAL PUNCTURES 0; STAT NO; ULNAR PULSE PRESENT; VENT SETTINGS PRVC/AC
--- NOTE | 2016-12-25 09:49 | HHI.NPPN ---
Subjective Renal Failure: Chronic, Acute Interval History Remains unresponsive on ventilator. Renal function is stable. (Tootie Grant) Review of Systems General General Remarks unable to obtain (Tootie Grant) Objective Data Data Vital Signs Date Time Temp Pulse Resp B/P (MAP) Pulse Ox O2 Delivery O2 Flow Rate FiO2 12/25/16 07:58 93 40 12/25/16 07:01 14 12/25/16 04:00 45 12/25/16 04:00 66 12/25/16 04:00 98.4 66 16 135/72 (93) 95 165/81 (109) 12/25/16 03:46 95 45 12/25/16 02:00 73 12/25/16 00:00 97.9 71 16 128/68 (88) 93 159/81 (107) 12/25/16 00:00 71 12/25/16 00:00 72 128/68 (88) 12/25/16 00:00 45 12/24/16 23:50 93 45 12/24/16 22:00 69 12/24/16 21:11 95 45 12/24/16 20:00 45 12/24/16 20:00 98.1 76 21 141/68 (92) 98 165/87 (113) 12/24/16 20:00 76 12/24/16 18:00 74 12/24/16 18:00 97 162/81 (108) 12/24/16 16:00 74 12/24/16 16:00 98.0 81 18 159/76 (103) 97 12/24/16 16:00 97 162/81 (108) 12/24/16 16:00 45 12/24/16 15:30 92 45 12/24/16 14:00 74 12/24/16 12:05 97 45 12/24/16 12:00 97.8 83 18 160/81 (107) 97 12/24/16 12:00 45 12/24/16 12:00 97 162/81 (108) 12/24/16 12:00 74 12/24/16 10:00 81 (Tootie Grant) -: 12/25/16 0405 12/25/16 0405 Imaging Last Impressions Chest X-Ray 12/21/16 0600 Signed Impressions: Service Date/Time: Wednesday, December 21, 2016 05:44 - CONCLUSION: 1. Stable tubes and lines, as above. 2. Interval mild bilateral lower lobe airspace disease, likely atelectasis. Dereck Bang MD Liver Ultrasound 12/16/16 0000 Signed Impressions: Service Date/Time: Friday, December 16, 2016 15:25 - CONCLUSION: 1. The liver is prominent with no focal lesion or ascites. 2. The right kidney is small and atrophic in appearance with cortical thinning and no hydronephrosis. There is increased echogenicity most characteristic of medical renal disease. Dylan Bryant MD Renal Ultrasound 12/14/16 0000 Signed Impressions: Service Date/Time: Wednesday, December 14, 2016 18:21 - CONCLUSION: Medical renal disease with echogenic kidneys. There is some atrophy of the right kidney. Nirav Camacho MD Head CT 12/14/16 0000 Signed Impressions: Service Date/Time: Wednesday, December 14, 2016 17:38 - CONCLUSION: Negative for an acute process. Sander Resendiz MD FACR Tubes & Lines: Vas-Cath, Raphael Tubes & Lines Comment A line right wrist; TLC left IJ Drip Comment fentanyl, propofol (Tootie Grant BSelwyn DENT) Physical Exam General Appearance: Well Developed, Comfortable, Obese Appearance Remarks intubated, unresponsive (Tootie Grant B. OSTEOPATHY DOCTOR) Eyes Eye Exam: Pupils Equal (Tootie Grant B. OSTEOPATHY DOCTOR) Throat Throat Exam: Oral Mucosa [place] & Moist (Tootie Grant BSelwyn OSTEOPATHY DOCTOR) Neck Neck Exam: Neck Supple (Tootie Grant BSelwyn OSTEOPATHY DOCTOR) Pulmonary Resp Exam: Breath Sounds Equal, No Distress, Rhonchi, Decreased Bases, Diminished Breath Sounds Resp Remarks vented lung sounds (Tootie Grant BSelwyn OSTEOPATHY DOCTOR) Cardiology CV Exam: Regular, Normal Sinus Rhythm (Tootie Grant BSelwyn OSTEOPATHY DOCTOR) Gastrointestinal/Abdomen GI Exam: Soft, Non-Tender, Bowel Sounds Present, Distended (Tootie Grant B. OSTEOPATHY DOCTOR) Musculoskeletal MS Exam: Joints Intact, Normal Tone, Unable to Ambulate (Tootie Grant BSelwyn OSTEOPATHY DOCTOR) Integumentary Skin Exam: Warm, Dry (Tootie Grant) Extremeties Extremities Exam: Pedal Pulses Palpable, Moderate Edema, Pitting Edema (Tootie Grant) Neurologic Neuro Exam: Unresponsive, Sedated (Tootie Grant) Assessment/Plan Assessment Summary: KAILEE/Acute Renal Failure, Acute Tubular Necrosis, Fluid/ Volume Overload, Hypertension, Diabetes Mellitus Electrolyte Assessment: Hypocalcemia Problem List: (1) Acute renal failure ICD Codes: N17.9 - Acute kidney failure, unspecified Status: Acute Plan: 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 HD initiated on the and (only has had 2 treatments) Renal function has been stable without HD; High BUN may be due to steroids Non oliguric with raphael catheter Monitor renal function daily with urine output HD if needed Avoid nephrotoxic agents. Not on IVF Repeat labs in AM (2) HCAP (healthcare-associated pneumonia) ICD Codes: J18.9 - Healthcare-associated pneumonia Status: Acute Plan: On solumedrol, she is off antibiotics. Monitor clinically (3) Acute respiratory failure ICD Codes: J96.00 - Acute respiratory failure Status: Acute Plan: Continue Ventilator support. May need tracheostomy soon. Current vent settings: 14/600/40/8 (4) DM (diabetes mellitus) ICD Codes: E11.9 - Type 2 diabetes mellitus without complications Status: Chronic Plan: continue insulin therapy goal 140-180 mg/dL (5) Hypocalcemia ICD Codes: E83.51 - Hypocalcemia Plan: PTH is high. She has secondary hyperparathyroidism, with hyperphosphatemia and hypocalcemia. She is on Calcium acetate TID via her feeding tube. Phosphorus has improved Hypocalcemia persists, but has also improved. She is on Vitamin D3 and calcitriol (Tootie Grant) Plan patient was seen and examined. Non oliguric. Very high BUN, may need to dialyze her today. Watch for signs of renal recovery. Avoid nephrotoxic agents. (Thomas Blackmon MD) Problem Qualifiers (1) Acute renal failure: Qualified Codes: N17.9 - Acute kidney failure, unspecified (2) Acute respiratory failure: Qualified Codes: J96.01 - Acute respiratory failure with hypoxia; J96.02 - Acute respiratory failure with hypercapnia (3) DM (diabetes mellitus): Qualified Codes: E13.9 - Other specified diabetes mellitus without complications Tootie Grant Dec 25, 2016 09:49 Thomas Blackmon MD Dec 25, 2016 10:27
[2016-12-25 10:16] LABS: CRITICAL VALUE YES
--- NOTE | 2016-12-25 11:34 | HHI.CCPN ---
Subjective Remarks/Hospital Course 61-year-old female. Date of admission 12/14/2016. Past records includes COPD/oxygen dependent, obstructive sleep apnea not using nocturnal CPAP , hypertension, morbid obesity. Hypertension, chronic kidney disease stage IV. She presents to [facility] 2 day history of shortness of breath. She is essentially in extremis 100 hour troponin emergency report. She is immediately placed on BiPAP however failed and was emergently endotracheally intubated. She required 100% FiO2 and was intermittently hypotensive the ED. CT head negative. Chest x-ray revealed possible vascular congestion. She is also noted of a calcium of 5.0. Elevated creatinine 5.1 with a baseline 1.9. she received 2 g calcium chloride and she received 20 mg IV Lasix. [employer] discontinued IV fluids and starting Bumex at 2 mg IV twice a day. 2-D echocardiogram revealed hyperdynamic state with EF of 65-70%. 12/15: - Afebrile. Off all vasopressors. 700 cc urine overnight. She is responding to fluids. Currently on midazolam drip. We'll attempt sedation vacation today if FiO2 decreased to around 50%. 12/16: Afebrile. Off all vasopressors. 1300 cc urine output past 24 hours. Nonoliguric. Currently on Versed and fentanyl drips. Moving all 4 extremities spontaneous. Will briefly attempt sedation vacation day but resedate BRIANA. 12/17: Patient had to be neuromuscularly paralyzed due to high peak pressures and hypoventilation. Started on Bumex drip overnight. Currently on 70% fio2, 10 PEEP , due to severe hypoxia. BUN/Creat 108/5, but urine output is adequate on Bumex drip-Nephrology wants to wait 24 hours prior to HD. Chest exam reveals severe bilateral expiratory wheezing 12/18: Patient remains critically severely hypoxemic. Good response to Bumex gtt. 5.1 L urine output in 24 hours. BUN/creatinine trending down 99/4. Potassium being replaced. Continue to wean FiO2 as tolerated remains on 55% with 12 of PEEP. I will discontinue neuromuscular blockade today 12/19: Remains critically ill but stable. FiO2 remains at 50%, PEEP just earliest 8. Urine output more than 2 L on Bumex infusion but BUN is increased to 111 creatinine stable at 4. Discussed with nephrology DC Bumex infusion and start scheduled Bumex 1 mg every 8 hours 12/20: Requiring high FiO2 at 60% without improvement remains critically ill. Worsening BUN/creatinine today 136/4.6. Urine output 1 L in 24 hours. We'll start hemodialysis today after placing Vas-Cath. Patient not tolerating sedation vacation due to ventilator synchrony 12/21: Requiring heavy sedation for vent synchrony. FiO2 down to 40%, PEEP 8. HD started yesterday, repeat today. Creatinine slightly improved with dialysis 12/22: remaining encephalopathic. hypoxia somewhat improved. severely hypertensive despite medications. KAILEE persists on HD. volume overloaded. remaining critically ill with multiple organ systems involved and off pathway. 12/23: no significant improvements. HD yesterday with 2L net negative. encephalopathy persists. off versed. weaning propofol. failing SBT. Cr still elevated. still severely oliguric. Subjective 12/24: Despite negative fluid balance, still very critically ill, encephalopathic , and unable to tolerate SBT. Will likely require tracheostomy. 12/25: Patient remains critically ill encephalopathy. Intermittently but not consistently follows commands, appears very lethargic. BUN elevated to 138 today creatinine remained stable, patient is oliguric. Plan for HD today. I discussed with patient's daughter. Chance of successful extubation is slim, will proceed with tracheostomy tentatively planned for 12/26/16 Objective Vital Signs Date Time Temp Pulse Resp B/P (MAP) Pulse Ox O2 Delivery O2 Flow Rate FiO2 12/25/16 11:20 94 45 12/25/16 07:01 14 12/25/16 04:00 66 12/25/16 04:00 98.4 135/72 (93) 165/81 (109) Result Diagram: 12/25/16 0405 12/25/16 0405 Other Results Laboratory Tests Test 12/25/16 05:32 12/25/16 08:48 Blood Gas Puncture Site ART LINE ART LINE Blood Gas Patient Temperature 98.6 98.6 Blood Gas HCO3 26 mmol/L (22-26) 26 mmol/L (22-26) Blood Gas Base Excess 1.8 mmol/L (-2-2) 1.8 mmol/L (-2-2) Blood Gas Oxygen Saturation 93 % (90-100) 92 % (90-100) Arterial Blood pH 7.45 (7.380-7.420) 7.41 (7.380-7.420) Arterial Blood Partial Pressure CO2 37 mmHg (38-42) 41 mmHg (38-42) Arterial Blood Partial Pressure O2 86 mmHg (61-120) 82 mmHg (61-120) Arterial Blood Oxygen Content 14.6 Vol % (12.0-20.0) 15.5 Vol % (12.0-20.0) Arterial Blood Carboxyhemoglobin 2.0 % (0-4) 1.8 % (0-4) Arterial Blood Methemoglobin 1.3 % (0-2) 1.3 % (0-2) Blood Gas Hemoglobin 11.0 G/DL (12.0-16.0) 12.0 G/DL (12.0-16.0) Oxygen Delivery Device VENT VENTILATOR Blood Gas Ventilator Setting SEE COMMENTS PRVC/AC Blood Gas Inspired Oxygen 45 % 40 % Imaging Last Impressions Chest X-Ray 12/15/16 0000 Signed Impressions: Service Date/Time: Thursday, December 15, 2016 03:58 - CONCLUSION: 1. Support apparatus in good position. Bilateral airspace consolidation. Freddie Tubbs MD Renal Ultrasound 12/14/16 0000 Signed Impressions: Service Date/Time: Wednesday, December 14, 2016 18:21 - CONCLUSION: Medical renal disease with echogenic kidneys. There is some atrophy of the right kidney. Nirav Camacho MD Head CT 12/14/16 0000 Signed Impressions: Service Date/Time: Wednesday, December 14, 2016 17:38 - CONCLUSION: Negative for an acute process. Sander Resendiz MD FACR Objective Remarks GENERAL: 60-year-old female, critically ill orotracheally intubated SKIN: Warm and dry. No rash. Poor skin turgor. HEAD: Atraumatic. Normocephalic. EYES: Pupils equal and round about 3 mm bilaterally and reactive. No scleral icterus. No injection or drainage. ENT: No nasal bleeding or discharge. Mucous membranes pink and moist. Orotracheally intubated NECK: Trachea midline. JVD unable to assess due to obesity. RIJ vascath site without hematoma CARDIOVASCULAR: Regular rate and rhythm. RESPIRATORY: Diminished breath sounds throughout. Symmetrical excursion. Mild wheezing GASTROINTESTINAL: Abdomen soft, non-tender, protuberant. MUSCULOSKELETAL: Extremities without significant peripheral edema. No obvious deformities. NEUROLOGICAL: Intubated sedated with propofol fentanyl Opens eyes to sternal rub, intermittently follows commands. Remains encephalopathic A/P Assessment and Plan Assessment: Morbidly obese 61yF with severe acute hypoxic and hypercarbic respiratory failure, acute kidney injury requiring renal replacement therapy, metabolic encephalopathy. not improving on pathway. if we withdraw support, she will . daily SBTs, but failing for hypoxia, distress, and altered mental status. on HD. Prognosis guarded at best. D/W daughter Carol Vigil. Will proceed with trach 12/26/16 Neuro/Psych: Toxic metabolic Encephalopathy - likely metabolic/CO2 retention Restless like syndrome Diabetic neuropathy Continue Fentanyl and propofol infusions. daily sedation vacation. Scheduled Dilaudid started 12/17/16 due to persistent hypertension responding to fentanyl bolus CT brain 12/14 revealed no acute intracranial findings Acetaminophen for fever, Holding gabapentin 300 mg 3 times a day in light of altered mental status CV: Uncontrolled hypertension- persistent History of hypertension History dyslipidemia Improved hypertension. Continue hydralazine 100 3 times a day, Isordil mill grams 3 times a day. Procardia at 40mg every 8 hours, clonidine 0.3 milligram TID. Labetalol 200mg po q8hr. Breakthrough labetalol and hydralazine iv. Home medications include lisinopril 5 mill grams daily, metoprolol 50 mill grams twice a day, clonidine 0.1 mg 3 times a day, nifedipine 60 mill grams every 12 hours, Imdur 30 mg daily and hydralazine 100 mg 3 times daily. EKG showed normal sinus rhythm. No acute ST-T changes. Specifically no QT prolongation setting of hypocalcemia Echocardiogram 2016 EF 55-60%. No regional wall motion abnormality. LEXIE- 61 mmHg. Mild MR. Echocardiogram 12/14/16 - EF 65-70%. No regional wall motion abnormality. Hyperdynamic state Resp: Acute hypoxemic respiratory failure Severe COPD/O2 dependent, with acute exacerbation HERACLIO/no CPAP at home Probable community-acquired pneumonia [facility] AC. wean fio2 for spo2 > 88%. Attempt SBT without extubation. Unable to extubate due to severe encephalopathy, tachypnea Ventilator bundle, Budesonide 0.5 mg/2 mL one inhalation twice a day Keep vent rate less than 16 breaths per minute to avoid air trapping, patient has very prolonged expiratory phase Tolerate hypercapnia, tolerate pH 7.2. Albuterol/ipratropium every 4 hours with albuterol hours is every 2 hours when necessary Methylprednisolone 40 mg IV every 6 hours At home Anoro Ellipta 62.5/25 one inhalation daily and Symbicort 160/4.5 2 puffs every 12 hours with as needed albuterol Chest x-ray revealed possible pulmonary edema with bilateral lower lobe infiltrate/atelectasis Flolan Dcd 12/17/16 GI: Elevated transaminases Nepro. Famotidine for GI prophylaxis Docusate sodium/Senokot for bowel regimen. MiraLAX and lactulose Avoid hepatotoxic medications. Trending downward. CPK and hepatitis panel - negative Had BM 12/19 : Bonilla for accurate I's and O's in a critically ill patient Endo: Diabetes mellitus with neuropathy Hyperglycemia At home on insulin detemir 10 units twice a day with sliding scale insulin. on sliding scale insulin with Accu-Cheks every 6 hours to maintain euglycemia/ high regimen NovoLog Renal: Acute kidney injury in the setting of Chronic kidney disease stage 4 - AIN versus medication requiring renal replacement BUN/cr 138/1.65 with diminishing urine output. on IHD. Nephrology following. HD today Urine eosinophils - 0-2 and electrolytes FeNa 0.4 Renal ultrasound 12/14 indicative of medical renal disease with atrophied right kidney Monitor urine output. Accurate I's and O's Noted LIZANDRO 1-80 last admission/speckled. Heme: Normocytic anemia Monitor CBC daily ID: Probable community-acquired pneumonia s/p full course of abx. d/c zosyn and levaquin. UA negative/, sputum neg to date. Blood cultures 12/14 and 12/15 negative to date. Negative urine pneumococcal and Legionella antigens FEN: Hypocalcemia Hyponatremia Hyperphosphatemia Replace electrolytes as clinically indicated per ICU likely protocol Phosphorus elevated 5.9, PTH elevated 705.7, vitamin D 1/25 pending and vitamin D 25 -12.3 LOW. Replacement to be ordered by Nephrology Likely from underlying renal disease. Replace calcium IV as needed. Continue Phoslo and Ca carbonate Access Left IJ CVL 12/14-12/20 RIJ Vascath 12/20 Prophylaxis - GI -famotidine - DVT - SCD/heparin subcutaneous Patient remains critically, with severe hypoxemic respiratory failure and multiorgan failure. Not improving. Unable to wean proceed with tracheostomy 03/31 or 12/26/16 Kathie Gastelum MD Dec 25, 2016 11:34
--- NOTE | 2016-12-25 12:07 | RADRPT ---
EXAM DATE/TIME: 12/25/2016 11:44 [facility] COMPARISON: CHEST SINGLE AP, December 21, 2016, 5:44. INDICATIONS : Evaluate for respiratory disease. MEDICAL HISTORY : Chronic obstructive pulmonary disease. Renal insufficiency, SURGICAL HISTORY : Hysterectomy. Tonsillectomy. Fusion, lumbar. ENCOUNTER: Subsequent ACUITY: 2 weeks PAIN SCORE: Non-responsive. LOCATION: Bilateral chest FINDINGS: 2 AP erect portable views of the chest were obtained again demonstrating endotracheal tube in place w ith the tip at the level thoracic inlet approximately 5 cm above the sajan. A nasogastric tube is se en coursing through the esophagus into the stomach. Streaky opacity remains at the left lung base. Th ere is minimal opacity at the right lung base. The heart size is at the upper limits of normal. The c ostophrenic angles appear blunted bilaterally left greater than right. The bony thorax is intact. The right internal jugular central venous line remains in place. CONCLUSION: 1. Improving bibasal opacity left greater than right. 2. Apparent small pleural effusions. Dylan Bryant MD on December 25, 2016 at 12:04 Board Certified Radiologist. This report was verified electronically.
[2016-12-25] MEDS: GENTAMICIN SULFATE (DIALYSIS USE ONLY) 20 MG/2 ML VIAL IV PRN (14:01)
[2016-12-25] MEDS: HEPARIN SODIUM - IV 10,000 UNITS/10 ML VIAL PRN (14:02)
--- NOTE | 2016-12-25 16:00 | HHI.PR ---
Subjective Remarks Sedated and on the vent at 45 % FIo2 . CXR shows mild vascular congestion Had dialysis. Sats are 96. sedated.with fentanyl/ Diprivan Objective Vital Signs Date Time Temp Pulse Resp B/P (MAP) Pulse Ox O2 Delivery O2 Flow Rate FiO2 12/25/16 11:20 94 45 12/25/16 11:15 45 12/25/16 07:58 93 40 12/25/16 07:01 14 12/25/16 04:00 45 12/25/16 04:00 66 12/25/16 04:00 98.4 66 16 135/72 (93) 95 165/81 (109) 12/25/16 03:46 95 45 12/25/16 02:00 73 12/25/16 00:00 97.9 71 16 128/68 (88) 93 159/81 (107) 12/25/16 00:00 71 12/25/16 00:00 72 128/68 (88) 12/25/16 00:00 45 12/24/16 23:50 93 45 12/24/16 22:00 69 12/24/16 21:11 95 45 12/24/16 20:00 45 12/24/16 20:00 98.1 76 21 141/68 (92) 98 165/87 (113) 12/24/16 20:00 76 12/24/16 18:00 74 12/24/16 18:00 97 162/81 (108) 12/24/16 16:00 74 12/24/16 16:00 98.0 81 18 159/76 (103) 97 12/24/16 16:00 97 162/81 (108) 12/24/16 16:00 45 I/O 12/24/16 12/24/16 12/24/16 12/25/16 12/25/16 12/25/16 07:00 15:00 23:00 07:00 15:00 23:00 Intake Total 0 ml 370 ml Output Total 1000 ml 350 ml 150 ml Balance -1000 ml 20 ml -150 ml Intake IV Total 0 ml 370 ml Tube Feeding 0 ml Output Urine Total 1000 ml 350 ml 150 ml Stool Total 0 ml # Bowel Movements 2 0 Result Diagram: 12/25/1640412/25/16404 Objective Remarks PHYSICAL EXAMINATION GENERAL: This is a middle-aged obese white female who is intubated, sedated, assisting the ventilator. HEENT: Normocephalic. Pupils reactive and equal. Nasal mucosae clear. NECK: Supple. No bruits or thyroid enlargement or lymphadenopathy. Trachea midline. CHEST: Equal movements with scattered wheezes and prolonged expirations,and crackles at the bases. HEART: The heart sounds are irregular, S1-S2. No murmur. No S3. ABDOMEN: Soft and slightly distended. Bowel sounds are active. No organomegaly. EXTREMITIES: mild edema. Reflexes are 1+. NEUROLOGIC: The patient is sedated. SKIN: Negative. Assessment and Plan Assessment and Plan IMPRESSION 1. Hypercapnic respiratory failure. 2. Severe COPD with emphysema. 3. History of diabetes mellitus. 4. Hypertension. 5. History of obstructive sleep apnea. 6. CKD 1V/KAILEE Plan : 1. Continue on Vent support and wean vent rate to 12 and 40 % FIO2 . 2. Cont Antibiotics.per ID 3. Reduce sedation 4. Nebs q6h with duoneb 5. CBC,,BMP in am 6. Tube feeds at 40 CC 7. Cont Solumedrol 40 mg IV Q12H 8. CPAP trial in am. Heidi Villareal MD Dec 25, 2016 16:00
[2016-12-25] MEDS: fentaNYL DRIP 250 ML IV PRN (18:20)
[2016-12-26] VITALS (17 sets, daily range): BP systolic 118–191; BP diastolic 61–88; PULSE 56–73; RESP 15–19; TEMP 97.2–98.3; O2SAT 91–100
[2016-12-26] MEDS: RESP: ALBUTEROL 2.5 MG/IPRATROPIUM 0.5 MG NEB (SCH) INH ×7 (00:07→23:57)
[2016-12-26] MEDS: HYDROmorphone HCL 2 MG TAB PO SCH ×4 (01:24→17:04)
[2016-12-26] MEDS: NIFEdipine 20 MG CAP PO SCH ×4 (01:33→21:52)
[2016-12-26] MEDS: SODIUM CHLOR 0.9% 1000 ML INJ 1,000 ML IV SCH (03:00)
[2016-12-26] MEDS: INSULIN ASPART SUPPLEMENTAL SCALE SQ SCH ×6 (03:28→20:00)
[2016-12-26] MEDS: LABETALOL HCL 200 MG TAB PO SCH ×3 (03:28→21:47)
[2016-12-26] MEDS: CHLORHEXIDINE GLUCONATE 2 % 1 PACK (2 CLOTHS) TOP SCH (03:29)
[2016-12-26] MEDS: hydrALAZINE HCL 100 MG TAB PO SCH ×3 (05:00→21:52)
[2016-12-26] MEDS: ISOSORBIDE DINITRATE 10 MG TAB PO SCH ×3 (05:00→21:47)
[2016-12-26] MEDS: HEPARIN SODIUM - SQ 10,000 UNITS/ML VIAL SQ SCH ×2 (05:00→16:36)
[2016-12-26] MEDS: cloNIDine HCL 0.3 MG TAB PO SCH ×3 (05:00→21:47)
[2016-12-26] MEDS: methylPREDNISolone SOD SUCC 40 MG/1 ML VIAL IV PUSH SCH ×3 (05:03→21:47)
[2016-12-26 07:29] LABS: HEMATOCRIT 24.1 % (35.0-46.0); MEAN CELL VOLUME 90.1 FL (80.0-100.0); MEAN CORPUSCULAR HEMOGLOBIN 30.7 PG (27.0-34.0); MEAN CORPUSCULAR HGB CONC 34.1 % (32.0-36.0); PLATELET COUNT 168 TH/MM3 (150-450); RED BLOOD COUNT 2.68 MIL/MM3 (4.00-5.30); RED CELL DISTRIBUTION WIDTH 15.3 % (11.6-17.2); REVIEW FLAG FINAL
[2016-12-26 07:58] LABS: BICARBONATE 28.4 MEQ/L (21.0-32.0); POTASSIUM 4.1 MEQ/L (3.5-5.1)
[2016-12-26 08:13] LABS: CALCIUM-PROTEIN CORRECTED 7.9 MG/DL (8.5-10.1)
[2016-12-26] MEDS: RESP: BUDESONIDE 0.5 MG/2 ML NEB NEB SCH ×2 (08:18→20:18)
[2016-12-26] MEDS: ARTIFICIAL TEARS OPTH OINT 3.5 APPLIC/3.5 GM TUBO EACH EYE SCH ×3 (08:59→21:54)
[2016-12-26] MEDS: UMECLIDINIUM 62.5 MCG/VILANTEROL 25 MCG INHALER INH SCH (09:00)
[2016-12-26] MEDS ORDERED: ROCURONIUM INJ 50 MG/5 ML VIAL IV ONE (09:00)
[2016-12-26] MEDS: POLYETHYLENE GLYCOL 17 GM PKG OG-TUBE SCH ×2 (09:00→21:47)
[2016-12-26] MEDS: CHOLECALCIFEROL (VIT D3) 1000 UNIT TAB NG SCH (09:00)
[2016-12-26] MEDS ORDERED: fentaNYL CITRATE 250 MCG/5 ML AMP IV PUSH ONE (09:00)
[2016-12-26] MEDS: LACTULOSE SYRUP 20 GM/30 ML CUP OG-TUBE SCH ×2 (09:00→21:47)
[2016-12-26] MEDS: INSULIN DETEMIR 100 UNITS/ML VIAL SQ SCH ×2 (09:00→21:00)
[2016-12-26] MEDS: CALCIUM ACETATE 667 MG CAP PO SCH ×3 (09:00→17:04)
[2016-12-26] MEDS: JUVEN POWDER 1 PACK G-TUBE SCH ×2 (09:00→21:00)
[2016-12-26] MEDS: CALCIUM CARBONATE 1.25 GM (CA 500 MG) TAB PO SCH ×2 (09:00→21:47)
[2016-12-26] MEDS: DOCUSATE SODIUM 50 MG/SENNA 8.6 MG TAB PO SCH ×2 (09:00→21:00)
[2016-12-26] MEDS: CALCITRIOL 0.25 MCG CAP NG SCH (09:00)
[2016-12-26] MEDS: ARTIFICIAL TEARS OPTH SOLN 15 ML BTL EACH EYE SCH ×3 (09:00→17:03)
[2016-12-26] MEDS ORDERED: MIDAZOLAM HCL 5 MG/ML VIAL (1 ML) IV PUSH ONE (09:00)
[2016-12-26] MEDS: FAMOTIDINE 20 MG/2 ML VIAL IV PUSH SCH ×2 (09:02→21:47)
[2016-12-26] MEDS: SODIUM CHLORIDE 0.9% FLUSH 10 ML FLUSH IV FLUSH SCH ×2 (09:03→21:47)
[2016-12-26] MEDS: SODIUM CHLORIDE 0.9% FLUSH 10 ML FLUSH IVF SCH (09:03)
[2016-12-26] MEDS: CHLORHEXIDINE 0.12% (ORAL KIT) 15 ML CUP MT SCH ×2 (09:05→21:54)
--- NOTE | 2016-12-26 09:20 | HHI.CCPN ---
Subjective Remarks/Hospital Course 61-year-old female. Date of admission 12/14/2016. Past records includes COPD/oxygen dependent, obstructive sleep apnea not using nocturnal CPAP , hypertension, morbid obesity. Hypertension, chronic kidney disease stage IV. She presents to [facility] 2 day history of shortness of breath. She is essentially in extremis 100 hour troponin emergency report. She is immediately placed on BiPAP however failed and was emergently endotracheally intubated. She required 100% FiO2 and was intermittently hypotensive the ED. CT head negative. Chest x-ray revealed possible vascular congestion. She is also noted of a calcium of 5.0. Elevated creatinine 5.1 with a baseline 1.9. she received 2 g calcium chloride and she received 20 mg IV Lasix. Business Ethics Professor discontinued IV fluids and starting Bumex at 2 mg IV twice a day. 2-D echocardiogram revealed hyperdynamic state with EF of 65-70%. 12/15: - Afebrile. Off all vasopressors. 700 cc urine overnight. She is responding to fluids. Currently on midazolam drip. We'll attempt sedation vacation today if FiO2 decreased to around 50%. 12/16: Afebrile. Off all vasopressors. 1300 cc urine output past 24 hours. Nonoliguric. Currently on Versed and fentanyl drips. Moving all 4 extremities spontaneous. Will briefly attempt sedation vacation day but resedate BRIANA. 12/17: Patient had to be neuromuscularly paralyzed due to high peak pressures and hypoventilation. Started on Bumex drip overnight. Currently on 70% fio2, 10 PEEP , due to severe hypoxia. BUN/Creat 108/5, but urine output is adequate on Bumex drip-Nephrology wants to wait 24 hours prior to HD. Chest exam reveals severe bilateral expiratory wheezing 12/18: Patient remains critically severely hypoxemic. Good response to Bumex gtt. 5.1 L urine output in 24 hours. BUN/creatinine trending down 99/4. Potassium being replaced. Continue to wean FiO2 as tolerated remains on 55% with 12 of PEEP. I will discontinue neuromuscular blockade today 12/19: Remains critically ill but stable. FiO2 remains at 50%, PEEP just earliest 8. Urine output more than 2 L on Bumex infusion but BUN is increased to 111 creatinine stable at 4. Discussed with nephrology DC Bumex infusion and start scheduled Bumex 1 mg every 8 hours 12/20: Requiring high FiO2 at 60% without improvement remains critically ill. Worsening BUN/creatinine today 136/4.6. Urine output 1 L in 24 hours. We'll start hemodialysis today after placing Vas-Cath. Patient not tolerating sedation vacation due to ventilator synchrony 12/21: Requiring heavy sedation for vent synchrony. FiO2 down to 40%, PEEP 8. HD started yesterday, repeat today. Creatinine slightly improved with dialysis 12/22: remaining encephalopathic. hypoxia somewhat improved. severely hypertensive despite medications. KAILEE persists on HD. volume overloaded. remaining critically ill with multiple organ systems involved and off pathway. 12/23: no significant improvements. HD yesterday with 2L net negative. encephalopathy persists. off versed. weaning propofol. failing SBT. Cr still elevated. still severely oliguric. Subjective 12/24: Despite negative fluid balance, still very critically ill, encephalopathic , and unable to tolerate SBT. Will likely require tracheostomy. 12/25: Patient remains critically ill encephalopathy. Intermittently but not consistently follows commands, appears very lethargic. BUN elevated to 138 today creatinine remained stable, patient is oliguric. Plan for HD today. I discussed with patient's daughter. Chance of successful extubation is slim, will proceed with tracheostomy tentatively planned for 12/26/1612/26: Patient is awake, but lethargic. With HD yesterday BUN improved to 98 from 138. Today Diffuse bilateral wheezing on exam. Chance of successful extubation minimal, vent day 13. Proceed with trach today. D/W pulmonology Dr. Oswald and he agrees with the plane. Daughter has consented and I have explained plan to patient who is also agreeable Objective Vital Signs Date Time Temp Pulse Resp B/P (MAP) Pulse Ox O2 Delivery O2 Flow Rate FiO2 12/26/16 08:19 93 40 12/26/16 06:00 61 12/26/16 06:00 118/61 (80) 151/69 (96) 12/26/16 04:00 97.2 18 Intake and Output 12/26/16 12/26/16 12/27/16 08:00 16:00 00:00 Output Total 350 ml Balance -350 ml Result Diagram: 12/26/1630 12/26/16 06 Imaging Last Impressions Chest X-Ray 12/15/16 0000 Signed Impressions: Service Date/Time: Thursday, December 15, 2016 03:58 - CONCLUSION: 1. Support apparatus in good position. Bilateral airspace consolidation. Freddie Tubbs MD Renal Ultrasound 12/14/16 0000 Signed Impressions: Service Date/Time: Wednesday, December 14, 2016 18:21 - CONCLUSION: Medical renal disease with echogenic kidneys. There is some atrophy of the right kidney. Nirav Camacho MD Head CT 12/14/16 0000 Signed Impressions: Service Date/Time: Wednesday, December 14, 2016 17:38 - CONCLUSION: Negative for an acute process. Sander Resendiz MD FACR Objective Remarks GENERAL: 60-year-old female, critically ill orotracheally intubated SKIN: Warm and dry. No rash. Poor skin turgor. HEAD: Atraumatic. Normocephalic. EYES: Pupils equal and round about 3 mm bilaterally and reactive. No scleral icterus. No injection or drainage. ENT: No nasal bleeding or discharge. Mucous membranes pink and moist. Orotracheally intubated NECK: Trachea midline. JVD unable to assess due to obesity. RIJ vascath site without hematoma CARDIOVASCULAR: Regular rate and rhythm. RESPIRATORY: Diminished breath sounds throughout. Bilateral diffuse wheezing GASTROINTESTINAL: Abdomen soft, non-tender, protuberant. MUSCULOSKELETAL: Extremities without significant peripheral edema. No obvious deformities. NEUROLOGICAL: Intubated sedated with propofol fentanyl. More awake today, understands plan for trach, very weakly follows commands Urinary Catheter: Yes Assessment to: Continue A/P Assessment and Plan Assessment: Morbidly obese 61yF with severe acute hypoxic and hypercarbic respiratory failure, acute kidney injury requiring renal replacement therapy, metabolic encephalopathy. not improving on pathway. if we withdraw support, she will . daily SBTs, but failing for hypoxia, distress, and altered mental status. on HD. Prognosis guarded at best. D/W daughter Carol Vigil. Will proceed with trach today 12/26/16 Neuro/Psych: Toxic metabolic Encephalopathy - likely metabolic/CO2 retention Restless leg syndrome Diabetic neuropathy Continue Fentanyl and propofol infusions. daily sedation vacation. Scheduled Dilaudid started 12/17/16 due to persistent hypertension responding to fentanyl bolus CT brain 12/14 revealed no acute intracranial findings Acetaminophen for fever, Holding gabapentin 300 mg 3 times a day in light of altered mental status CV: Uncontrolled hypertension History of hypertension History dyslipidemia Improved hypertension now. Continue hydralazine 100 3 times a day, Isordil mill grams 3 times a day. Procardia at 40mg every 8 hours, clonidine 0.3 milligram TID. Labetalol 200mg po q8hr. Breakthrough labetalol and hydralazine iv. (Home medications include lisinopril 5 mill grams daily, metoprolol 50 mill grams twice a day, clonidine 0.1 mg 3 times a day, nifedipine 60 mill grams every 12 hours, Imdur 30 mg daily and hydralazine 100 mg 3 times daily.) EKG-Specifically no QT prolongation setting of hypocalcemia Echocardiogram 2015 EF 55-60%. No regional wall motion abnormality. LEXIE- 61 mmHg. Mild MR. Echocardiogram 12/14/16 - EF 65-70%. No regional wall motion abnormality. Hyperdynamic state Resp: Acute hypoxemic respiratory failure Severe COPD/O2 dependent, with acute exacerbation HERACLIO/no CPAP at home Probable community-acquired pneumonia PRVC AC. wean fio2 for spo2 > 88%. Unable to extubate due to severe COPD exacerbation, NM weakness, renal failure. Vent day 13. Proceed with trach today 12/26 Ventilator bundle, Budesonide 0.5 mg/2 mL one inhalation twice a day Keep vent rate less than 16 breaths per minute to avoid air trapping, patient has very prolonged expiratory phase Tolerate hypercapnia, tolerate pH 7.2. Albuterol/ipratropium every 4 hours with albuterol hours is every 2 hours when necessary Methylprednisolone 40 mg IV every 8 hours At home Anoro Ellipta 62.5/25 one inhalation daily and Symbicort 160/4.5 2 puffs every 12 hours with as needed albuterol Chest x-ray revealed possible pulmonary edema with bilateral lower lobe infiltrate/atelectasis Flolan Dcd 12/17/16 GI: Elevated transaminases Nepro tube feeds. Famotidine for GI prophylaxis Docusate sodium/Senokot for bowel regimen. MiraLAX and lactulose Avoid hepatotoxic medications. Trending downward. CPK and hepatitis panel - negative Having regular BM : Chad for accurate I's and O's in a critically ill patient Endo: Diabetes mellitus with neuropathy Hyperglycemia At home on insulin detemir 10 units twice a day with sliding scale insulin. on sliding scale insulin with Accu-Cheks every 6 hours to maintain euglycemia/ high regimen NovoLog Renal: Acute kidney injury in the setting of Chronic kidney disease stage 4 - AIN versus medication requiring renal replacement BUN/cr 138/1.65 with diminishing urine output. on IHD. Nephrology following. HD last 12/25 Urine eosinophils - 0-2 and electrolytes FeNa 0.4 Renal ultrasound 12/14 indicative of medical renal disease with atrophied right kidney Monitor urine output. Accurate I's and O's Noted LIZANDRO 1-80 last admission/speckled. Heme: Normocytic anemia Monitor CBC daily ID: Probable community-acquired pneumonia s/p full course of abx. d/c zosyn and levaquin. UA negative/, sputum neg to date. Blood cultures 12/14 and 12/15 negative to date. Negative urine pneumococcal and Legionella antigens FEN: Hypocalcemia Hyponatremia Hyperphosphatemia Replace electrolytes as clinically indicated per ICU likely protocol Phosphorus elevated 5.9, PTH elevated 705.7, vitamin D /25 pending and vitamin D 25 -12.3 LOW. Replacement to be ordered by Nephrology Likely from underlying renal disease. Replace calcium IV as needed. Continue Phoslo and Ca carbonate Access Left IJ CVL 12/14-12/20 RIJ Vascath 12/20 Prophylaxis - GI -famotidine - DVT - SCD/heparin subcutaneous Patient remains critically, with severe hypoxemic respiratory failure and multiorgan failure. Not improving adequately. Unable to wean proceed with tracheostomy today 12/26/16. D/W Kathie Valenzuela MD Dec 26, 2016 09:20
--- NOTE | 2016-12-26 10:46 | HHI.NPPN ---
Subjective Renal Failure: Chronic, Acute Interval History Remain on ventilator, opens eyes to stimuli. Blood pressure is stable. She is making a good amount of urine. Edema persists. (Tootie Grant) Review of Systems General General Remarks unable to obtain (Tootie Grant) Objective Data Data Vital Signs Date Time Temp Pulse Resp B/P (MAP) Pulse Ox O2 Delivery O2 Flow Rate FiO2 12/26/16 08:19 93 40 12/26/16 06:00 61 12/26/16 06:00 71 118/61 (80) 151/69 (96) 12/26/16 04:23 91 40 12/26/16 04:00 40 12/26/16 04:00 59 12/26/16 04:00 97.2 60 18 130/72 (91) 91 142/72 (95) 12/26/16 02:00 69 12/26/16 00:07 92 40 12/26/16 00:00 40 12/26/16 00:00 69 130/75 (93) 152/71 (98) 12/26/16 00:00 97.2 69 15 130/75 (93) 92 152/71 (98) 12/26/16 00:00 68 12/25/16 22:00 70 12/25/16 20:50 93 40 12/25/16 20:00 75 12/25/16 20:00 97.2 65 28 168/81 (110) 94 172/80 (110) 12/25/16 20:00 40 12/25/16 18:00 67 17 124/72 (89) 92 147/69 (95) 12/25/16 17:00 75 15 117/66 (83) 93 136/68 (90) 12/25/16 16:08 95 40 12/25/16 16:00 40 12/25/16 16:00 72 18 141/79 (99) 95 157/77 (103) 12/25/16 15:00 67 19 135/81 (99) 93 144/80 (101) 12/25/16 14:00 65 16 105/68 (80) 95 116/67 (83) 12/25/16 13:00 70 14 115/66 (82) 93 126/68 (87) 12/25/16 12:00 98.6 69 17 154/83 (106) 96 173/77 (109) 12/25/16 11:20 94 45 12/25/16 11:15 45 12/25/16 11:00 66 15 155/80 (105) 92 162/81 (108) (Tootie Grant) -: 12/26/16 0630 12/26/16 0630 Imaging Last Impressions Chest X-Ray 12/25/16 0000 Signed Impressions: Service Date/Time: Sunday, December 25, 2016 11:44 - CONCLUSION: 1. Improving bibasal opacity left greater than right. 2. Apparent small pleural effusions. Dylan Bryant MD Liver Ultrasound 12/16/16 0000 Signed Impressions: Service Date/Time: Friday, December 16, 2016 15:25 - CONCLUSION: 1. The liver is prominent with no focal lesion or ascites. 2. The right kidney is small and atrophic in appearance with cortical thinning and no hydronephrosis. There is increased echogenicity most characteristic of medical renal disease. Dylan Bryant MD Renal Ultrasound 12/14/16 0000 Signed Impressions: Service Date/Time: Wednesday, December 14, 2016 18:21 - CONCLUSION: Medical renal disease with echogenic kidneys. There is some atrophy of the right kidney. Nirav Camacho MD Head CT 12/14/16 0000 Signed Impressions: Service Date/Time: Wednesday, December 14, 2016 17:38 - CONCLUSION: Negative for an acute process. Sander Resendiz MD FACR Tubes & Lines: Vas-Cath, Raphael Tubes & Lines Comment A line right wrist; TLC left IJ Drip Comment fentanyl, propofol (Tootie Grant) Physical Exam General Appearance: Well Developed, Comfortable, Obese Appearance Remarks intubated, unresponsive (Tootie Grant) Eyes Eye Exam: Pupils Equal (Tooite Grant) Throat Throat Exam: Oral Mucosa [place] & Moist (Tootie Grant) Neck Neck Exam: Neck Supple (Tootie Grant) Pulmonary Resp Exam: Breath Sounds Equal, No Distress, Rhonchi, Decreased Bases, Diminished Breath Sounds Resp Remarks vented lung sounds (Tootie Grant) Cardiology CV Exam: Regular, Normal Sinus Rhythm (Tootie Grant) Gastrointestinal/Abdomen GI Exam: Soft, Non-Tender, Bowel Sounds Present, Distended (Tootie Grant) Musculoskeletal MS Exam: Joints Intact, Normal Tone, Unable to Ambulate (Tootie Grant) Integumentary Skin Exam: Warm, Dry (Tootie Grant) Extremeties Extremities Exam: Pedal Pulses Palpable, Moderate Edema, Pitting Edema, Dependent Edema (Tootie Grant) Neurologic Neuro Exam: Unresponsive, Sedated (Tootie Grant) VTE Prophylaxis Device: SCDs (Tootie Grant) Assessment/Plan Assessment Summary: KAILEE/Acute Renal Failure, Acute Tubular Necrosis, Fluid/ Volume Overload, Hypertension, Diabetes Mellitus Electrolyte Assessment: Hypocalcemia Problem List: (1) Acute renal failure ICD Codes: N17.9 - Acute kidney failure, unspecified Status: Acute Plan: 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 HD initiated on the and Dialyzed yesterday as her BUN is very high Repeat labs tomorrow and HD if needed She is on steroids which may be contributing to high BUN Non oliguric with raphael catheter Monitor urine output Avoid nephrotoxic agents. Not on IVF Obtain daily labs (2) HCAP (healthcare-associated pneumonia) ICD Codes: J18.9 - Healthcare-associated pneumonia Status: Acute Plan: On solumedrol, she is off antibiotics. Monitor clinically (3) Acute respiratory failure ICD Codes: J96.00 - Acute respiratory failure Status: Acute Plan: Continue Ventilator support. May need tracheostomy soon. On 40% Fi02 (4) DM (diabetes mellitus) ICD Codes: E11.9 - Type 2 diabetes mellitus without complications Status: Chronic Plan: continue insulin therapy goal 140-180 mg/dL (5) Hypocalcemia ICD Codes: E83.51 - Hypocalcemia Plan: PTH is high. She has secondary hyperparathyroidism, with hyperphosphatemia and hypocalcemia. She is on Calcium acetate TID via her feeding tube. Phosphorus has improved Hypocalcemia persists, but has also improved. She is on Vitamin D3 and calcitriol (Tootie Grant) Plan patient was seen and examined. Agree with above assessment and plan. Repeat labs tomorrow before deciding on dialysis. (Thomas Blackmon MD) Problem Qualifiers (1) Acute renal failure: Qualified Codes: N17.9 - Acute kidney failure, unspecified (2) Acute respiratory failure: Qualified Codes: J96.01 - Acute respiratory failure with hypoxia; J96.02 - Acute respiratory failure with hypercapnia (3) DM (diabetes mellitus): Qualified Codes: E13.9 - Other specified diabetes mellitus without complications Tootie Grant Dec 26, 2016 10:45 Thomas Blackmon MD Dec 26, 2016 18:39
[2016-12-26] MEDS ORDERED: LIDOCAINE 1%/EPINEPHrine 1:100,000 SOLN 30 ML VIAL ONE (11:23)
--- NOTE | 2016-12-26 11:44 | PD.PROCEDR ---
Procedure Note Procedure Procedure: Percutaneous Dilation Tracheostomy Tube Placement Diagnosis: Recurrent respiratory failure, Ignobility to wean Anesthesia: Versed 5 mg IV and continuos infusion of propofol, fentanyl 100 mcg IVP x2 Neuromuscular Blockade: Rocuronium 50 mg IV Description of the Procedure: The patient was sedated and paralyzed. The patient was positioned in the supine position with a chest roll. The patient's neck was slightly extended. Landmarks were palpated and the anatomy of the anterior neck was deemed normal. A time out procedure was performed. The patient was placed on a volume control mode of ventilation, on 100% FiO2. Anterior neck was prepped and draped sterilely. A bronchoscope was inserted into the endotracheal tube for endoscopic guidance by Dr. Gonsales (see separate bronchoscopy procedure note). 1 % lidocaine with 1:100k epinephrine was injected subcutaneously in the midline neck. An approximately 1.5 cm vertical skin incision, was made using a #15 blade. The cricoid cartilage, thyroid tissue, and tracheal rings were palpated in the midline. Under direct bronchoscopic guidance, endotracheal tube was retracted to a level above the level of the skin incision. The 15G introducer needle/catheter was advanced midline under negative aspiration and the needle and catheter were visualized in the lumen of the trachea. The needle was withdrawn leaving the catheter in place. A J-shaped guidewire was advanced through the catheter into the lumen of the trachea, under direct bronchoscopic visualization. Using a modified Seldinger technique, a 14 Fr, 4.5 cm introducer dilator was used, followed by a Blue Rhino Percutaneous Tracheostomy Dilator, and finally a 28 Fr tracheostomy loading catheter with 8.0 Cuffed Shiley tracheostomy tube. The loading catheter and guidewire were removed and the tracheostomy tube was confirmed in the lumen of the trachea with bronchoscopy, end-tidal CO2, and returning volumes on the ventilator. The tracheostomy was sewn to the skin with interrupted 2.0 Prolene sutures, and a tracheostomy tie was applied to the skin. There were no immediate complications. There was minimal EBL. A chest x-ray has been ordered. Performed by myself with Kathie Black MD Dec 26, 2016 11:43
--- NOTE | 2016-12-26 12:32 | RADRPT ---
EXAM DATE/TIME: 12/26/2016 11:56 [facility] COMPARISON: CHEST SINGLE AP, December 25, 2016, 11:44. INDICATIONS : Tracheostomy tube placement. MEDICAL HISTORY : None. SURGICAL HISTORY : Fusion, lumbar. ENCOUNTER: Initial ACUITY: 2 weeks PAIN SCORE: Non-responsive. LOCATION: chest FINDINGS: The tracheostomy tube has its tip in good position 4 cm above the sajan. A right internal jugular Va s-Cath has its tip at the junction of superior vena cava and right atrium. No pneumothorax is noted. The heart is enlarged. Bibasilar patchiness is noted consistent with atelectasis and/or pneumonia. CONCLUSION: 1. Tracheostomy tube in good position 4 cm above the sajan. 2. Bibasilar patchiness consistent with atelectasis and/or pneumonia. 3. Cardiomegaly. Mustapha Morales MD on December 26, 2016 at 12:26 Board Certified Radiologist. This report was verified electronically.
[2016-12-26] MEDS: hydrALAZINE HCL 20 MG/ML VIAL IV PUSH PRN ×3 (13:46→18:43)
[2016-12-26] MEDS: NITROGLYCERIN 2% OINT 1 GM PACKET TOPICAL PRN (13:47)
--- NOTE | 2016-12-26 14:12 | PD.PROCEDR ---
Procedure Note Procedure DX: Respiratory Failure (J96.01) OP: Therapeutic Bronchoscopy (21894) Procedure: Time out. Patient in ICU on mechanical ventilation with usual monitoring in place. The bronchoscope was delivered through a sealed side port elbow. The tracheobronchial tree was suctioned for large amounts of white sputum. Bronchi to the 3rd segments were inspected and suctioned clean. No anatomic variation encountered. The orotracheal tube and scope were then withdrawn to the level of the cricoid and used for visualization of the percutaneous tracheostomy procedure dictated under another note. After trach tube insertion the scope was passed through the new trcah tube and good position in the trachea was confirmed. Ventilation was turned over to the trach site. CXR confirmed tube in good position and seating. Sats maintained above 90 % throughout the procedure. Leonidas Gonsales MD Dec 26, 2016 14:12
--- NOTE | 2016-12-26 17:02 | HHI.PR ---
Subjective Remarks Awake and on the vent at 45 % FIo2 . She had a Trach placed and seems More alert and responds to commands. CXR shows mild vascular congestion Had dialysis. Tolerates feeds. Objective Vital Signs Date Time Temp Pulse Resp B/P (MAP) Pulse Ox O2 Delivery O2 Flow Rate FiO2 12/26/16 15:54 100 60 12/26/16 11:49 100 100 12/26/16 11:00 100 100 12/26/16 08:19 93 40 12/26/16 06:00 61 12/26/16 06:00 71 118/61 (80) 151/69 (96) 12/26/16 04:23 91 40 12/26/16 04:00 40 12/26/16 04:00 59 12/26/16 04:00 97.2 60 18 130/72 (91) 91 142/72 (95) 12/26/16 02:00 69 12/26/16 00:07 92 40 12/26/16 00:00 40 12/26/16 00:00 69 130/75 (93) 152/71 (98) 12/26/16 00:00 97.2 69 15 130/75 (93) 92 152/71 (98) 12/26/16 00:00 68 12/25/16 22:00 70 12/25/16 20:50 93 40 12/25/16 20:00 75 12/25/16 20:00 97.2 65 28 168/81 (110) 94 172/80 (110) 12/25/16 20:00 40 12/25/16 18:00 67 17 124/72 (89) 92 147/69 (95) 12/25/16 17:00 75 15 117/66 (83) 93 136/68 (90) I/O 12/25/16 12/25/16 12/25/16 12/26/16 12/26/16 12/26/16 07:00 15:00 23:00 07:00 15:00 23:00 Output Total 150 ml 3600 ml 350 ml Balance -150 ml -3600 ml -350 ml Output Urine Total 150 ml 1100 ml 350 ml Hemodialysis 2500 ml # Bowel Movements 0 0 3 Result Diagram: 12/26/1662912/26/1630 Objective Remarks PHYSICAL EXAMINATION GENERAL: This is a middle-aged obese white female who is on the vent with a Trach HEENT: Normocephalic. Pupils reactive and equal. Nasal mucosae clear. NECK: Supple. No bruits or thyroid enlargement or lymphadenopathy. Trachea midline. CHEST: Equal movements with scattered wheezes and prolonged expirations,and occ crackles at the bases. HEART: The heart sounds are irregular, S1-S2. No murmur. No S3. ABDOMEN: Soft and slightly distended. Bowel sounds are active. No organomegaly. EXTREMITIES: mild edema. Reflexes are 1+. NEUROLOGIC: The patient is sedated. SKIN: Negative. Assessment and Plan Assessment and Plan IMPRESSION 1. Hypercapnic respiratory failure. 2. Severe COPD with emphysema. 3. History of diabetes mellitus. 4. Hypertension. 5. History of obstructive sleep apnea. 6. CKD 1V/KAILEE Plan : 1. Continue on Vent support and wean vent rate to 12 and 40 % FIO2 . 2. Cont Antibiotics.per ID 3. PT evaluation 4. Nebs q6h with duoneb 5. CXR ,BMP in am 6. Tube feeds at 40 CC 7. Solumedrol 40 mg IV Q12H 8. CPAP trial daily. 9. Dr Sander Noble will Follow Patient Heidi Villareal MD Dec 26, 2016 17:02
[2016-12-26] MEDS: fentaNYL DRIP 250 ML IV PRN (17:36)
--- NOTE | 2016-12-26 21:52 | RADRPT ---
EXAM DATE/TIME: 12/26/2016 21:33 [facility] COMPARISON: No previous studies available for comparison. INDICATIONS : NG tube placement. MEDICAL HISTORY : Chronic obstructive pulmonary disease. Renal insufficiency, chronic. Hypercholesterolemia. Rheumatoid arthritis. Diabetes. Restless leg syndrome. Hypertension. Osteoporosis. Renal calculi. Pneumonia. My ocardial infarction. SURGICAL HISTORY : Hysterectomy. Tonsillectomy. Fusion, lumbar. Bilateral knee replacement. ENCOUNTER: Subsequent ACUITY: 1 day PAIN SCORE: Non-responsive. LOCATION: Abdomen, upper quadrant. FINDINGS: Nasogastric tube present with tip at the gastric outlet. No free air. Visualized bowel gas pattern is nonobstructive. CONCLUSION: Nasogastric tube tip is at the gastric outlet. Nirav Savage MD on December 26, 2016 at 21:50 Board Certified Radiologist. This report was verified electronically.
[2016-12-26] MEDS: PROPOFOL 1000 MG/100 ML INJ 100 ML IV PRN (21:54)
[2016-12-27] VITALS (16 sets, daily range): BP systolic 119–209; BP diastolic 60–97; PULSE 60–83; RESP 13–28; TEMP 97.8–98.1; O2SAT 94–100
[2016-12-27] MEDS: hydrALAZINE HCL 20 MG/ML VIAL IV PUSH PRN (00:10)
[2016-12-27] MEDS: HYDROmorphone HCL 2 MG TAB PO SCH ×4 (00:10→17:34)
[2016-12-27] MEDS: SODIUM CHLOR 0.9% 1000 ML INJ 1,000 ML IV SCH (02:12)
[2016-12-27] MEDS: RESP: ALBUTEROL 2.5 MG/IPRATROPIUM 0.5 MG NEB (SCH) INH ×5 (03:49→21:07)
[2016-12-27] MEDS: INSULIN ASPART SUPPLEMENTAL SCALE SQ SCH ×6 (04:00→20:00)
[2016-12-27] MEDS: CHLORHEXIDINE GLUCONATE 2 % 1 PACK (2 CLOTHS) TOP SCH (04:00)
[2016-12-27] MEDS: PROPOFOL 1000 MG/100 ML INJ 100 ML IV PRN (04:45)
[2016-12-27] MEDS: HEPARIN SODIUM - SQ 10,000 UNITS/ML VIAL SQ SCH ×2 (04:46→17:44)
[2016-12-27] MEDS: cloNIDine HCL 0.3 MG TAB PO SCH ×3 (04:46→21:59)
[2016-12-27] MEDS: ISOSORBIDE DINITRATE 10 MG TAB PO SCH ×3 (04:46→21:58)
[2016-12-27] MEDS: methylPREDNISolone SOD SUCC 40 MG/1 ML VIAL IV PUSH SCH ×2 (04:46→22:00)
[2016-12-27] MEDS: NIFEdipine 20 MG CAP PO SCH ×4 (04:47→22:02)
[2016-12-27] MEDS: LABETALOL HCL 200 MG TAB PO SCH ×3 (04:47→21:58)
[2016-12-27] MEDS: hydrALAZINE HCL 100 MG TAB PO SCH ×3 (04:49→21:58)
[2016-12-27 06:43] LABS: HEMATOCRIT 24.7 % (35.0-46.0); MEAN CORPUSCULAR HGB CONC 33.3 % (32.0-36.0); PLATELET COUNT 205 TH/MM3 (150-450); RED BLOOD COUNT 2.75 MIL/MM3 (4.00-5.30); RED CELL DISTRIBUTION WIDTH 15.3 % (11.6-17.2); REVIEW FLAG FINAL; WHITE BLOOD COUNT 6.1 TH/MM3 (4.0-11.0)
[2016-12-27 06:54] LABS: BICARBONATE 25.6 MEQ/L (21.0-32.0); POTASSIUM 4.1 MEQ/L (3.5-5.1)
[2016-12-27] MEDS: RESP: BUDESONIDE 0.5 MG/2 ML NEB NEB SCH ×2 (08:00→20:00)
[2016-12-27] MEDS: CHLORHEXIDINE 0.12% (ORAL KIT) 15 ML CUP MT SCH ×2 (08:59→20:00)
[2016-12-27] MEDS: ARTIFICIAL TEARS OPTH SOLN 15 ML BTL EACH EYE SCH ×3 (09:00→17:34)
[2016-12-27] MEDS: CALCIUM CARBONATE 1.25 GM (CA 500 MG) TAB PO SCH ×2 (09:00→21:58)
[2016-12-27] MEDS: FAMOTIDINE 20 MG/2 ML VIAL IV PUSH SCH ×2 (09:00→21:59)
[2016-12-27] MEDS: POLYETHYLENE GLYCOL 17 GM PKG OG-TUBE SCH ×2 (09:00→21:58)
[2016-12-27] MEDS: CHOLECALCIFEROL (VIT D3) 1000 UNIT TAB NG SCH (09:00)
[2016-12-27] MEDS: INSULIN DETEMIR 100 UNITS/ML VIAL SQ SCH ×2 (09:00→22:00)
[2016-12-27] MEDS: DOCUSATE SODIUM 50 MG/SENNA 8.6 MG TAB PO SCH ×2 (09:00→21:58)
[2016-12-27] MEDS: CALCITRIOL 0.25 MCG CAP NG SCH (09:00)
[2016-12-27] MEDS: UMECLIDINIUM 62.5 MCG/VILANTEROL 25 MCG INHALER INH SCH (09:00)
[2016-12-27] MEDS: JUVEN POWDER 1 PACK G-TUBE SCH ×2 (09:00→21:00)
[2016-12-27] MEDS: LACTULOSE SYRUP 20 GM/30 ML CUP OG-TUBE SCH ×2 (09:00→21:59)
[2016-12-27] MEDS: CALCIUM ACETATE 667 MG CAP PO SCH ×3 (09:00→17:34)
[2016-12-27] MEDS: ARTIFICIAL TEARS OPTH OINT 3.5 APPLIC/3.5 GM TUBO EACH EYE SCH ×2 (09:01→22:02)
[2016-12-27] MEDS: SODIUM CHLORIDE 0.9% FLUSH 10 ML FLUSH IVF SCH (09:01)
[2016-12-27] MEDS: SODIUM CHLORIDE 0.9% FLUSH 10 ML FLUSH IV FLUSH SCH ×2 (09:01→22:01)
--- NOTE | 2016-12-27 09:44 | HHI.CCPN ---
Subjective Remarks/Hospital Course 61-year-old female. Date of admission 12/14/2016. Past records includes COPD/oxygen dependent, obstructive sleep apnea not using nocturnal CPAP , hypertension, morbid obesity. Hypertension, chronic kidney disease stage IV. She presents to [facility] 2 day history of shortness of breath. She is essentially in extremis 100 hour troponin emergency report. She is immediately placed on BiPAP however failed and was emergently endotracheally intubated. She required 100% FiO2 and was intermittently hypotensive the ED. CT head negative. Chest x-ray revealed possible vascular congestion. She is also noted of a calcium of 5.0. Elevated creatinine 5.1 with a baseline 1.9. she received 2 g calcium chloride and she received 20 mg IV Lasix. Operating Room Manager discontinued IV fluids and starting Bumex at 2 mg IV twice a day. 2-D echocardiogram revealed hyperdynamic state with EF of 65-70%. 12/15: - Afebrile. Off all vasopressors. 700 cc urine overnight. She is responding to fluids. Currently on midazolam drip. We'll attempt sedation vacation today if FiO2 decreased to around 50%. 12/16: Afebrile. Off all vasopressors. 1300 cc urine output past 24 hours. Nonoliguric. Currently on Versed and fentanyl drips. Moving all 4 extremities spontaneous. Will briefly attempt sedation vacation day but resedate BRIANA. 12/17: Patient had to be neuromuscularly paralyzed due to high peak pressures and hypoventilation. Started on Bumex drip overnight. Currently on 70% fio2, 10 PEEP , due to severe hypoxia. BUN/Creat 108/5, but urine output is adequate on Bumex drip-Nephrology wants to wait 24 hours prior to HD. Chest exam reveals severe bilateral expiratory wheezing 12/18: Patient remains critically severely hypoxemic. Good response to Bumex gtt. 5.1 L urine output in 24 hours. BUN/creatinine trending down 99/4. Potassium being replaced. Continue to wean FiO2 as tolerated remains on 55% with 12 of PEEP. I will discontinue neuromuscular blockade today 12/19: Remains critically ill but stable. FiO2 remains at 50%, PEEP just earliest 8. Urine output more than 2 L on Bumex infusion but BUN is increased to 111 creatinine stable at 4. Discussed with nephrology DC Bumex infusion and start scheduled Bumex 1 mg every 8 hours 12/20: Requiring high FiO2 at 60% without improvement remains critically ill. Worsening BUN/creatinine today 136/4.6. Urine output 1 L in 24 hours. We'll start hemodialysis today after placing Vas-Cath. Patient not tolerating sedation vacation due to ventilator synchrony 12/21: Requiring heavy sedation for vent synchrony. FiO2 down to 40%, PEEP 8. HD started yesterday, repeat today. Creatinine slightly improved with dialysis 12/22: remaining encephalopathic. hypoxia somewhat improved. severely hypertensive despite medications. KAILEE persists on HD. volume overloaded. remaining critically ill with multiple organ systems involved and off pathway. 12/23: no significant improvements. HD yesterday with 2L net negative. encephalopathy persists. off versed. weaning propofol. failing SBT. Cr still elevated. still severely oliguric. Subjective 12/24: Despite negative fluid balance, still very critically ill, encephalopathic , and unable to tolerate SBT. Will likely require tracheostomy. 12/25: Patient remains critically ill encephalopathy. Intermittently but not consistently follows commands, appears very lethargic. BUN elevated to 138 today creatinine remained stable, patient is oliguric. Plan for HD today. I discussed with patient's daughter. Chance of successful extubation is slim, will proceed with tracheostomy tentatively planned for 12/26/1612/26: Patient is awake, but lethargic. With HD yesterday BUN improved to 98 from 138. Today Diffuse bilateral wheezing on exam. Chance of successful extubation minimal, vent day 13. Proceed with trach today. D/W pulmonology Dr. Oswald and he agrees with the plane. Daughter has consented and I have explained plan to patient who is also agreeable 12/27: Patient had tracheostomy placed yesterday. Tolerated procedure well. More awake and following commands. BUN has increased today to 105 creatinine 2.3. Nephrology planning on hemodialysis today. UO 2.2 L in 24 hours Objective Vital Signs Date Time Temp Pulse Resp B/P (MAP) Pulse Ox O2 Delivery O2 Flow Rate FiO2 12/27/16 08:49 40 12/27/16 08:49 94 12/27/16 06:00 69 121/60 (80) 135/64 (87) 12/27/16 04:00 97.8 23 Intake and Output 912/27/16 12/28/16 08:00 16:00 00:00 Intake Total 260 ml Output Total 700 ml Balance -440 ml Result Diagram: 12/27/16 0550 12/27/16 0550 Imaging Last Impressions Chest X-Ray 12/15/16 0000 Signed Impressions: Service Date/Time: Thursday, December 15, 2016 03:58 - CONCLUSION: 1. Support apparatus in good position. Bilateral airspace consolidation. Freddie Tubbs MD Renal Ultrasound 12/14/16 0000 Signed Impressions: Service Date/Time: Wednesday, December 14, 2016 18:21 - CONCLUSION: Medical renal disease with echogenic kidneys. There is some atrophy of the right kidney. Nirav Camacho MD Head CT 12/14/16 0000 Signed Impressions: Service Date/Time: Wednesday, December 14, 2016 17:38 - CONCLUSION: Negative for an acute process. Sander Resendiz MD FACR Objective Remarks GENERAL: 60-year-old female, critically ill s/p trach SKIN: Warm and dry. No rash. Poor skin turgor. HEAD: Atraumatic. Normocephalic. EYES: Pupils equal and round about 3 mm bilaterally and reactive. No scleral icterus. No injection or drainage. ENT: No nasal bleeding or discharge. Mucous membranes pink and moist. Orotracheally intubated NECK: Trachea midline. JVD unable to assess due to obesity. RIJ vascath site without hematoma. Trach site C/D/I CARDIOVASCULAR: Regular rate and rhythm. RESPIRATORY: Diminished breath sounds throughout. Mild bilateral wheezing GASTROINTESTINAL: Abdomen soft, non-tender, protuberant. MUSCULOSKELETAL: Extremities without significant peripheral edema. No obvious deformities. NEUROLOGICAL: Intubated sedated with propofol fentanyl. More awake today, weakly follows commands Urinary Catheter: Yes Assessment to: Continue Vascular Central Line Catheter: Yes Assessment to: Continue A/P Assessment and Plan Assessment: Morbidly obese 61yF with severe acute hypoxic and hypercarbic respiratory failure, acute kidney injury requiring renal replacement therapy, metabolic encephalopathy. not improving on pathway. if we withdraw support, she will . daily SBTs, but failing for hypoxia, distress, and altered mental status. s/p trach 12/26/16 Neuro/Psych: Toxic metabolic Encephalopathy - likely metabolic/CO2 retention Restless leg syndrome Diabetic neuropathy Continue Fentanyl and propofol infusions. Daily sedation vacation. Scheduled Dilaudid started 12/17/16 due to persistent hypertension responding to fentanyl bolus CT brain 12/14 revealed no acute intracranial findings Acetaminophen for fever, Holding gabapentin 300 mg 3 times a day in light of altered mental status CV: Uncontrolled hypertension History of hypertension History dyslipidemia Continue hydralazine 100 3 times a day, Isordil mill grams 3 times a day. Procardia at 40mg every 8 hours, clonidine 0.3 milligram TID. Labetalol 200mg po q8hr. Breakthrough labetalol and hydralazine iv. (Home medications include lisinopril 5 mill grams daily, metoprolol 50 mill grams twice a day, clonidine 0.1 mg 3 times a day, nifedipine 60 mill grams every 12 hours, Imdur 30 mg daily and hydralazine 100 mg 3 times daily.) EKG-Specifically no QT prolongation setting of hypocalcemia Echocardiogram 2015 EF 55-60%. No regional wall motion abnormality. LEXIE- 61 mmHg. Mild MR. Echocardiogram 12/14/16 - EF 65-70%. No regional wall motion abnormality. Hyperdynamic state Resp: Acute hypoxemic respiratory failure Severe COPD/O2 dependent, with acute exacerbation HERACLIO/no CPAP at home Probable community-acquired pneumonia s/p Trach 12/26 Unable to extubate due to severe COPD exacerbation, NM weakness, renal failure. Start CPAP trials today with attempt at TP Ventilator bundle, Budesonide 0.5 mg/2 mL one inhalation twice a day Keep vent rate less than 16 breaths per minute to avoid air trapping, patient has very prolonged expiratory phase Methylprednisolone 40 mg IV every 8 hours. Reduce to 40 q12 12/27 At home Anoro Ellipta 62.5/25 one inhalation daily and Symbicort 160/4.5 2 puffs every 12 hours with as needed albuterol Flolan Dcd 12/17/[address] Bateman GI: Elevated transaminases Nepro tube feeds. Famotidine for GI prophylaxis. GO consulted for PEG Docusate sodium/Senokot for bowel regimen. MiraLAX and lactulose Avoid hepatotoxic medications. Trending downward. CPK and hepatitis panel - negative Having regular BM Endo: Diabetes mellitus with neuropathy Hyperglycemia At home on insulin detemir 10 units twice a day with sliding scale insulin. on sliding scale insulin with Accu-Cheks every 6 hours to maintain euglycemia/ high regimen NovoLog Renal: Acute kidney injury in the setting of Chronic kidney disease stage 4 - AIN versus medication requiring renal replacement BUN/cr 105/2.3. on IHD. Nephrology following. HD planned for today. Dr. Blackmon Urine eosinophils - 0-2 and electrolytes FeNa 0.4 Renal ultrasound 12/14 indicative of medical renal disease with atrophied right kidney Noted LIZANDRO 1-80 last admission/speckled. Bonilla for accurate I's and O's in a critically ill patient Heme: Normocytic anemia Monitor CBC daily ID: Probable community-acquired pneumonia s/p full course of abx. d/c zosyn and levaquin. UA negative/, sputum neg to date. Blood cultures 12/14 and 12/15 negative to date. Negative urine pneumococcal and Legionella antigens FEN: Hypocalcemia Hyponatremia Hyperphosphatemia Replace electrolytes as clinically indicated per ICU likely protocol Phosphorus elevated 5.9, PTH elevated 705.7, vitamin D 1/25 pending and vitamin D 25 -12.3 LOW. Replacement to be ordered by Nephrology Likely from underlying renal disease. Replace calcium IV as needed. Continue Phoslo and Ca carbonate Access Left IJ CVL 12/14-12/20 RIJ Vascath 12/20 Prophylaxis - GI -famotidine - DVT - SCD/heparin subcutaneous Patient remains critically, with severe hypoxemic respiratory failure and multiorgan failure. s/p tracheostomy today 12/26/16. D/W Dr. Oswald Level 3 Kathie Gastelum MD Dec 27, 2016 09:44
--- NOTE | 2016-12-27 10:20 | HHI.NPPN ---
Subjective Renal Failure: Chronic, Acute Interval History She had trach placed yesterday. On CPAP trials today. She is non oliguric. (Tootie Grant) Review of Systems General General Remarks unable to obtain (Tootie Grant) Objective Data Data Vital Signs Date Time Temp Pulse Resp B/P (MAP) Pulse Ox O2 Delivery O2 Flow Rate FiO2 12/27/16 08:49 40 12/27/16 08:49 94 40 12/27/16 06:00 69 121/60 (80) 135/64 (87) 12/27/16 06:00 77 12/27/16 04:00 50 12/27/16 04:00 97.8 69 23 163/79 (107) 96 170/87 (114) 12/27/16 04:00 66 12/27/16 03:50 98 50 12/27/16 02:00 74 12/27/16 00:39 97 50 12/27/16 00:00 98.0 67 28 209/84 (125) 100 12/27/16 00:00 50 12/27/16 00:00 67 209/84 (125) 12/27/16 00:00 76 12/26/16 22:00 62 12/26/16 20:18 100 60 12/26/16 20:00 57 12/26/16 20:00 98.3 56 18 123/81 (95) 99 12/26/16 20:00 60 12/26/16 18:00 60 152/81 (104) 171/75 (107) 12/26/16 16:00 40 12/26/16 16:00 65 18 170/84 (112) 100 191/87 (121) 12/26/16 15:54 100 60 12/26/16 12:00 73 176/84 (114) 183/88 (119) 12/26/16 12:00 97.7 73 19 176/84 (114) 97 183/88 (119) 12/26/16 11:49 100 100 12/26/16 11:00 100 100 (Tootie Grant) -: 12/27/16 0550 12/27/16 0550 Imaging Last 72 hours Impressions Chest X-Ray 12/26/16 0000 Signed Impressions: Service Date/Time: Monday, December 26, 2016 11:56 - CONCLUSION: 1. Tracheostomy tube in good position 4 cm above the sajan. 2. Bibasilar patchiness consistent with atelectasis and/or pneumonia. 3. Cardiomegaly. Mustapha Morales MD Abdomen X-Ray 12/26/16 0000 Signed Impressions: Service Date/Time: Monday, December 26, 2016 21:33 - CONCLUSION: Nasogastric tube tip is at the gastric outlet. Nirav Savage MD Chest X-Ray 12/25/16 0000 Signed Impressions: Service Date/Time: Sunday, December 25, 2016 11:44 - CONCLUSION: 1. Improving bibasal opacity left greater than right. 2. Apparent small pleural effusions. Dylan Bryant MD Tubes & Lines: Vas-Cath, Raphael Tubes & Lines Comment A line right wrist was removed; TLC left IJ Drip Comment fentanyl, propofol (Tootie Grant) Physical Exam General Appearance: Well Developed, Comfortable, Obese Appearance Remarks intubated, unresponsive (Tootie Grant) Eyes Eye Exam: Pupils Equal (Tootie Grant) Throat Throat Exam: Oral Mucosa [place] & Moist Throat Remarks s/p trach placement (Tootie Grant) Neck Neck Exam: Neck Supple (Tootie Grant) Pulmonary Resp Exam: Clear Bilaterally, Breath Sounds Equal, No Distress, Decreased Bases , Diminished Breath Sounds Resp Remarks vented lung sounds (Tootie Grant) Cardiology CV Exam: Regular, Normal Sinus Rhythm (Tootie Grant) Gastrointestinal/Abdomen GI Exam: Soft, Non-Tender, Bowel Sounds Present (Tootie Grant) Musculoskeletal MS Exam: Joints Intact, Normal Tone, Unable to Ambulate (Tootie Grant) Integumentary Skin Exam: Warm, Dry (Tootie Grant) Extremeties Extremities Exam: Pedal Pulses Palpable, Moderate Edema, Pitting Edema (Tootie Grant) Neurologic Neuro Exam: Awake (Tootie Grant) VTE Prophylaxis Device: SCDs (Tootie Grant) Assessment/Plan Assessment Summary: KAILEE/Acute Renal Failure, Acute Tubular Necrosis, Fluid/ Volume Overload, Hypertension, Diabetes Mellitus Electrolyte Assessment: Hypocalcemia Problem List: (1) Acute renal failure ICD Codes: N17.9 - Acute kidney failure, unspecified Status: Acute Plan: 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 HD initiated on the and , repeat on 12/25 We will dialyzed again today, continue TTS HD schedule if needed She is on steroids which may be contributing to high BUN Non oliguric with raphael catheter Monitor urine output Avoid nephrotoxic agents. Not on IVF Obtain daily labs (2) HCAP (healthcare-associated pneumonia) ICD Codes: J18.9 - Healthcare-associated pneumonia Status: Acute Plan: On solumedrol, she is off antibiotics. Monitor clinically (3) Acute respiratory failure ICD Codes: J96.00 - Acute respiratory failure Status: Acute Plan: Continue Ventilator support. S/p tracheostomy 12/26 Will need PEG On CPAP trials. (4) DM (diabetes mellitus) ICD Codes: E11.9 - Type 2 diabetes mellitus without complications Status: Chronic Plan: continue insulin therapy goal 140-180 mg/dL (5) Hypocalcemia ICD Codes: E83.51 - Hypocalcemia Plan: PTH is high. She has secondary hyperparathyroidism She is on Calcium acetate TID via her feeding tube. Phosphorus is in normal range Hypocalcemia persists. She is on Vitamin D3 and calcitriol Plan p (Tootie Grant) Plan patient was seen and examined. Agree with above assessment and plan. Dialysis today. Discussed with Dr. Gastelum, suggested reducing the dose of Solumedrol. (Thomas Blackmon MD) Problem Qualifiers (1) Acute renal failure: Qualified Codes: N17.9 - Acute kidney failure, unspecified (2) Acute respiratory failure: Qualified Codes: J96.01 - Acute respiratory failure with hypoxia; J96.02 - Acute respiratory failure with hypercapnia (3) DM (diabetes mellitus): Qualified Codes: E13.9 - Other specified diabetes mellitus without complications Tootie Grant Dec 27, 2016 10:20 Thomas Blackmon MD Dec 28, 2016 13:40
--- NOTE | 2016-12-27 10:29 | PD.CONS ---
HPI History of Present Illness This is a 61 year old female with COPD (O2 dependent) who was admitted on for shortness of breath and required emergent intubation and mechanical ventilation. She is now in the medical intensive care unit, being treated for respiratory failure, severe COPD, obstructive sleep apnea, suspected community acquired pneumonia, toxic metabolic encephalopathy, uncontrolled hypertension, hyperlipidemia, diabetes, acute kidney injury, and elevated liver enzymes. She had a percutaneous tracheostomy placed yesterday at the bedside and underwent a bronchoscopy. GI has been consulted for PEG tube placement. She currently has an NGT that is clamped. The acquisition manager is following and has recommended Nepro at 40cc/hr and recommended discontinuing the Steve BID. Called daughter Carol Vigil at to discuss egd with peg tube placement- procedure, risks, and benefits. There was no answer and therefore a message was left for her to return call. (Callie Sims) PFSH Past Medical History Hx hospital acquired pneumonia Severe COPD, on O2 at home HERACLIO CKD DM Peripheral neuropathy Lumbar stenosis HTN Dyslipidemia Past Surgical History Hysterectomy ORIF left hip Tonsillectomy and adenoidectomy Lumbar fusion (Callie Sims) Coded Allergies: codeine (Unverified Adverse Reaction, Severe, 11/27/16) *MDRO Multi-Drug Resistant Organism (Verified Adverse Reaction, Unknown, ) MDR E. 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 Medications Allergies Coded Allergies Type Severity Reaction Last Updated Verified codeine Adverse Reaction Severe 11/27/16 No *MDRO Multi-Drug Resistant Organism Adverse Reaction Unknown 09/17/15 Yes Active Scripts Medications Dose Route/Sig Max Daily Dose Days Date Category Dose Instructions Prednisone 20 Mg Tab 40 Mg PO DAILY 07/01/16 Rx Azithromycin 500 Mg Tab 500 Mg PO DAILY 07/01/16 Rx Tramadol (Tramadol HCl) 50 Mg Tab 50 Mg PO TID PRN 06/29/16 Reported Atorvastatin (Atorvastatin Calcium) 20 Mg Tab 20 Mg PO HS 06/29/16 Reported Nifedipine ER 24 HR (Nifedipine) 60 Mg Tab 60 Mg PO BID 06/29/16 Reported Isosorbide Mononitrate ER (Isosorbide Mononitrate) 30 Mg Malick 30 Mg PO DAILY 06/29/16 Reported Gabapentin 300 Mg Cap 300 Mg PO TID 06/29/16 Reported Anoro Ellipta Inh (Umeclidinium/Vilanterol) 62.5-25 Mcg/Act Aero 1 Puff INH DAILY 06/18/16 Reported Vitamin B-12 Cr (Cyanocobalamin) 1,000 Mcg Tab 1,000 Mcg PO DAILY 06/18/16 Reported Metoprolol Tartrate 50 Mg Tab 50 Mg PO BID 06/18/16 Reported Lisinopril 5 Mg Tab 5 Mg PO DAILY 06/18/16 Reported Levemir Inj (Insulin Detemir) 1,000 unit/ 10 ML Vial 10 Units SQ BID 06/18/16 Reported Do not mix with any other Insulin. Novolog Inj (Insulin Aspart) 1,000 Unit/10 Ml Vial 0 SQ DIRECTED 06/18/16 Reported Sliding Scale as directed. Hydralazine (Hydralazine HCl) 100 Mg Tab 100 Mg PO Q8HR 06/18/16 Reported Take with meals Clonidine (Clonidine HCl) 0.1 Mg Tab 0.1 Mg PO Q8HR 06/18/16 Reported Symbicort Inh (Budesonide/Formoterol Fumarate) 160-4.5 Mcg/Act Aero 2 Puff INH Q12HR 06/18/16 Reported Albuterol Neb (Albuterol Sulfate) 2.5 Mg/0.5 Ml Neb 2.5 Mg NEB Q4HR NEB PRN 06/18/16 Reported Note: The Albuterol Sulfate Inhalation Solution is concentrated and must be diluted. Read complete instructions carefully before using. Family History Unable to obtain Social History Unable to obtain (Callie Sims) Review of Systems ROS Unable to obtain (Callie Sims) GI Exam Vitals I&O Vital Signs Date Time Temp Pulse Resp B/P (MAP) Pulse Ox O2 Delivery O2 Flow Rate FiO2 12/27/16 08:49 40 12/27/16 08:49 94 40 12/27/16 06:00 69 121/60 (80) 135/64 (87) 12/27/16 06:00 77 12/27/16 04:00 50 12/27/16 04:00 97.8 69 23 163/79 (107) 96 170/87 (114) 12/27/16 04:00 66 12/27/16 03:50 98 50 12/27/16 02:00 74 12/27/16 00:39 97 50 12/27/16 00:00 98.0 67 28 209/84 (125) 100 12/27/16 00:00 50 12/27/16 00:00 67 209/84 (125) 12/27/16 00:00 76 12/26/16 22:00 62 12/26/16 20:18 100 60 12/26/16 20:00 57 12/26/16 20:00 98.3 56 18 123/81 (95) 99 12/26/16 20:00 60 12/26/16 18:00 60 152/81 (104) 171/75 (107) 12/26/16 16:00 40 12/26/16 16:00 65 18 170/84 (112) 100 191/87 (121) 12/26/16 15:54 100 60 12/26/16 12:00 73 176/84 (114) 183/88 (119) 12/26/16 12:00 97.7 73 19 176/84 (114) 97 183/88 (119) 12/26/16 11:49 100 100 12/26/16 11:00 100 100 I/O 12/26/16 12/26/16 12/26/16 12/27/16 12/27/16 12/27/16 07:00 15:00 23:00 07:00 15:00 23:00 Intake Total 260 ml Output Total 350 ml 1600 ml 700 ml Balance -350 ml -1600 ml -440 ml Other 260 ml Output Urine Total 350 ml 1550 ml 700 ml Gastric Drainage Total 50 ml # Bowel Movements 3 0 0 Imaging Last Impressions Chest X-Ray 12/26/16 0000 Signed Impressions: Service Date/Time: Monday, December 26, 2016 11:56 - CONCLUSION: 1. Tracheostomy tube in good position 4 cm above the sajan. 2. Bibasilar patchiness consistent with atelectasis and/or pneumonia. 3. Cardiomegaly. Mustapha Morales MD Abdomen X-Ray 12/26/16 0000 Signed Impressions: Service Date/Time: Monday, December 26, 2016 21:33 - CONCLUSION: Nasogastric tube tip is at the gastric outlet. Nirav Savage MD Liver Ultrasound 12/16/16 0000 Signed Impressions: Service Date/Time: Friday, December 16, 2016 15:25 - CONCLUSION: 1. The liver is prominent with no focal lesion or ascites. 2. The right kidney is small and atrophic in appearance with cortical thinning and no hydronephrosis. There is increased echogenicity most characteristic of medical renal disease. Dylan Bryant MD Renal Ultrasound 12/14/16 0000 Signed Impressions: Service Date/Time: Wednesday, December 14, 2016 18:21 - CONCLUSION: Medical renal disease with echogenic kidneys. There is some atrophy of the right kidney. Nirav Camacho MD Head CT 12/14/16 0000 Signed Impressions: Service Date/Time: Wednesday, December 14, 2016 17:38 - CONCLUSION: Negative for an acute process. Sander Resendiz MD FACR Laboratory Test 12/27/16 05:50 White Blood Count 6.1 TH/MM3 Red Blood Count 2.75 MIL/MM3 Hemoglobin 8.2 GM/DL Hematocrit 24.7 % Mean Corpuscular Volume 90.0 FL Mean Corpuscular Hemoglobin 30.0 PG Mean Corpuscular Hemoglobin Concent 33.3 % Red Cell Distribution Width 15.3 % Platelet Count 205 TH/MM3 Mean Platelet Volume 8.4 FL Blood Urea Nitrogen 105 MG/DL Creatinine 2.31 MG/DL Random Glucose 176 MG/DL Calcium Level 7.6 MG/DL Phosphorus Level 3.4 MG/DL Sodium Level 140 MEQ/L Potassium Level 4.1 MEQ/L Chloride Level 102 MEQ/L Carbon Dioxide Level 25.6 MEQ/L Anion Gap 12 MEQ/L Estimat Glomerular Filtration Rate 21 ML/MIN Date/Time Source Procedure Growth Status 12/15/16 05:03 Blood Peripheral Aerobic Blood Culture - Final NO GROWTH IN 5 DAYS Complete 12/15/16 05:03 Blood Peripheral Anaerobic Blood Culture - Final NO GROWTH IN 5 DAYS Complete 12/16/16 10:00 Sputum Endotracheal Gram Stain - Final Complete 12/16/16 10:00 Sputum Endotracheal Sputum Culture - Final LIGHT GROWTH NORMAL RESPIRATORY SLAVA Complete 12/14/16 17:35 Urine Catheterized Urine Legionella Antigen - Final PRESUMPTIVE NEGATIVE FOR LEGIONELLA P... Complete 12/14/16 17:35 Urine Catheterized Urine Streptococcus pneumoniae Antigen (M - Final PRESUMPTIVE NEGATIVE FOR STREPTOCOCCU... Complete Physical Examination HEENT: Normocephalic; atraumatic; no jaundice. CHEST: Resp even/unlabored, diminished throughout CARDIAC: RRR ABDOMEN: Soft, nondistended, nontender; no hepatosplenomegaly; bowel sounds are present in all four quadrants. EXTREMITIES: Generalized edema- worse in BUE BOILER HELPER: Sedated on vent (Callie Sims) Assessment and Plan Plan ASSESSMENT: - Dysphagia, FEN. Pt in ICU, with respiratory failure, severe copd, heraclio, suspected cap, requiring prolonged mechanical ventilation. S/P tracheostomy placement. GI consulted for PEG tube placement. Food Services Coordinator recommends Nepro at 40cc/hr and discontinuing the Steve BID. Called daughter Carol Vigil at to discuss egd with peg tube placement- procedure, risks, and benefits. There was no answer and therefore a message was left for her to return call. - Respiratory failure, COPD, HERACLIO, Suspected CAP. S/P tracheostomy, per [facility] - Acute on chronic kidney disease, DM, encephalopathy, htn, hyperlipidemia, per attending PLAN: - Plan for egd with peg tube placement - Obtain consents - NPO - Ancef prevocational/rehabilitation counselor - D/C Steve per acquisition manager's recommendations - Of note, acquisition manager recommends Nepro at 40cc/hr - Had heparin at 430 - Supportive care - Further recommendations to follow based on results of above - Pt seen and examined by Dr. Barber and myself and this note is written on her behalf (Callie Sims) Physician Comments seen, examined agree with above peg today (Swathi Barber MD) Callie Sims Dec 27, 2016 10:29 Swathi Barber MD Dec 27, 2016 16:49
[2016-12-27] MEDS ORDERED: PROPOFOL 200 MG/20 ML AMP IV ONE ×2 (11:30→15:09)
[2016-12-27 12:19] LABS: BACTERIA, URINE OCC /hpf; BLOOD, URINE NEG (NEG); GLUCOSE,URINE NEG (NEG); KETONE, URINE TRACE mg/dL (NEG); NITRITE,URINE NEG (NEG); SQUAMOUS EPITHELIAL CELL URINE <1 /hpf (0-5); URINE COLOR YELLOW (YELLW/STRAW)
[2016-12-27 12:32] LABS: COMMENT (UR) CATH-CULTURE IND; CULTURE IF INDICATED CATH CULTURE IND
[2016-12-27] MEDS ORDERED: ceFAZolin 500 MG/NS 100 ML IV SCH ×2 (14:00)
[2016-12-27] MEDS ORDERED: ceFAZolin 500 MG/NS 100 ML IV ONE ×2 (14:15)
[2016-12-27] MEDS: ALBUMIN HUMAN 25% 25 GM/100 ML BAGP IV PRN (16:51)
[2016-12-27] MEDS: GENTAMICIN SULFATE (DIALYSIS USE ONLY) 20 MG/2 ML VIAL IV PRN (16:51)
[2016-12-27] MEDS: HEPARIN SODIUM - IV 10,000 UNITS/10 ML VIAL PRN (16:51)
--- NOTE | 2016-12-27 19:42 | GIPROC ---
[facility] [address] [facility]. [facility] [place], [address] EGD WITH PEG PROCEDURE REPORT EXAM DATE: 12/27/2016 PATIENT NAME: Rachana Vigil MR#: [id number] BIRTHDATE: 1955 ATTENDING: Swathi Barber MD ORDER #: [id number] ENERGY SALES BROKER: Ever Man and Sharon Castro STATUS: inpatient INDICATIONS: The patient is a 61 yr old female here for an EGD with PEG due to dysphagia PROCEDURE PERFORMED: EGD with PEG placement , feeding difficulties MEDICATIONS: Per Anesthesia and None. TOPICAL ANESTHETIC: none CONSENT: The patient understands the risks and benefits of the procedure and understands that these risks include, but are not limited to: sedation, allergic reaction, infection, perforation and/or bleeding. Alternative means of evaluation and treatment include, among others: physical exam, x-rays, and/or surgical intervention. The patient elects to proceed with this endoscopic procedure. medical equipment was checked for proper function. Hand hygiene and appropriate measures for infection prevention was taken. After the risks, benefits and alternatives of the procedure were thoroughly explained, Informed consent was verified, confirmed and timeout was successfully executed by the treatment team. The patient was anesthetized with topical anesthesia and the Pentax [id number] endoscope was introduced through the mouth and advanced to the second portion of the duodenum. The instrument was slowly withdrawn as the mucosa was fully examined. The upper, middle, and distal third of the esophagus were carefully inspected and no abnormalities were noted. The z-line was well seen at the GEJ. The endoscope was pushed into the fundus which was normal including a retroflexed view. The antrum, first and second part of the duodenum were unremarkable. The stomach was then inflated with air, and by a combination of transillumination and manual palpation, the site for the gastrostomy tube placement was selected and marked on the anterior abdominal wall. The skin of the anterior abdomen was surgically prepped and draped with sterile towels. Utilizing strict sterile technique, the selected site was then anesthetized with 1% xylocaine by injection into the skin and subcutaneous tissue. A 1 cm incision was made through the skin and subcutaneous tissue, and the needle/cannula assembly was then passed through the abdominal wall and through the anterior wall of the stomach, maintaining visualization with the endoscope. A snare device previously placed through the instrument channel was then opened and placed around the cannula, the needle was removed, and the insertion wire was passed through the cannula and into the stomach lumen. The snare was then loosened from the cannula, and repositioned to snare the insertion wire. The snare was then pulled up to the endoscope distal tip, and the scope was then withdrawn bringing with it the snare and insertion wire. The insertion wire was then released from the snare, and then loop-attached to the gastrostomy tube. Using the "pull technique", the G-tube was then pulled into place by traction on the insertion wire at the abdominal wall end. The G-tube insertion site was then cleansed once again, and the external bolster was placed over the tube to secure it to the abdominal wall. A sterile dressing was then applied, and the procedure terminated. no abnormalities The gastroscope was then slowly withdrawn and removed. ADVERSE EVENT: There were no complications. IMPRESSIONS: 1. The upper, middle, and distal third of the esophagus were carefully inspected and no abnormalities were noted. The z-line was well seen at the GEJ. The endoscope was pushed into the fundus which was normal including a retroflexed view. The antrum, first and second part of the duodenum were unremarkable. 2. No abnormalities 3.S/p peg placement RECOMMENDATIONS: ok to use PEG for medications today start TF in am if site ok abdominal binder fu peg instructions REPEAT EXAM: Swathi Barber MD eSigned: Swathi Barber MD 12/27/2016 7:41 PM cc: PATIENT NAME: Rachana Vigil MR#: [id number]
[2016-12-28] VITALS (18 sets, daily range): BP systolic 121–188; BP diastolic 65–86; PULSE 64–79; RESP 13–23; TEMP 97.8–99.8; O2SAT 76–100
[2016-12-28] MEDS: SODIUM CHLOR 0.9% 1000 ML INJ 1,000 ML IV SCH (03:00)
[2016-12-28] MEDS: RESP: ALBUTEROL 2.5 MG/IPRATROPIUM 0.5 MG NEB (SCH) INH ×6 (03:35→19:54)
[2016-12-28] MEDS: CHLORHEXIDINE GLUCONATE 2 % 1 PACK (2 CLOTHS) TOP SCH (04:00)
[2016-12-28] MEDS: INSULIN ASPART SUPPLEMENTAL SCALE SQ SCH ×6 (04:00→21:38)
[2016-12-28] MEDS: LABETALOL HCL 200 MG TAB PO SCH ×3 (04:05→21:31)
[2016-12-28] MEDS: ISOSORBIDE DINITRATE 10 MG TAB PO SCH ×3 (05:17→21:39)
[2016-12-28] MEDS: HEPARIN SODIUM - SQ 10,000 UNITS/ML VIAL SQ SCH ×2 (05:17→17:26)
[2016-12-28] MEDS: HYDROmorphone HCL 2 MG TAB PO SCH ×2 (05:17)
[2016-12-28] MEDS: hydrALAZINE HCL 100 MG TAB PO SCH ×3 (05:17→21:33)
[2016-12-28] MEDS: NIFEdipine 20 MG CAP PO SCH ×3 (05:17→21:33)
[2016-12-28] MEDS: cloNIDine HCL 0.3 MG TAB PO SCH ×3 (05:17→21:33)
[2016-12-28 05:32] LABS: HEMATOCRIT 25.5 % (35.0-46.0); MEAN CELL VOLUME 90.7 FL (80.0-100.0); MEAN CORPUSCULAR HEMOGLOBIN 29.5 PG (27.0-34.0); MEAN CORPUSCULAR HGB CONC 32.6 % (32.0-36.0); PLATELET COUNT 197 TH/MM3 (150-450); RED BLOOD COUNT 2.82 MIL/MM3 (4.00-5.30); RED CELL DISTRIBUTION WIDTH 15.1 % (11.6-17.2); REVIEW FLAG FINAL
[2016-12-28 05:41] LABS: ANION GAP 9 MEQ/L (5-15); AST (GOT) 14 U/L (15-37); BICARBONATE 30.2 MEQ/L (21.0-32.0); BLOOD UREA NITROGEN 54 MG/DL (7-18); CHLORIDE 100 MEQ/L (98-107); GLOMERULAR FILTRATION RATE 29 ML/MIN (>89); POTASSIUM 3.5 MEQ/L (3.5-5.1); SODIUM (NA) 139 MEQ/L (136-145)
[2016-12-28 05:59] LABS: ALKALINE PHOSPHATASE 72 U/L (45-117); ALT (GPT) 18 U/L (10-53); TOTAL BILIRUBIN ADULT 0.6 MG/DL (0.2-1.0)
--- NOTE | 2016-12-28 07:28 | HHI.CCPN ---
Subjective Remarks/Hospital Course 61-year-old female. Date of admission 12/14/2016. Past records includes COPD/oxygen dependent, obstructive sleep apnea not using nocturnal CPAP , hypertension, morbid obesity. Hypertension, chronic kidney disease stage IV. She presents to [facility] 2 day history of shortness of breath. She is essentially in extremis 100 hour troponin emergency report. She is immediately placed on BiPAP however failed and was emergently endotracheally intubated. She required 100% FiO2 and was intermittently hypotensive the ED. CT head negative. Chest x-ray revealed possible vascular congestion. She is also noted of a calcium of 5.0. Elevated creatinine 5.1 with a baseline 1.9. she received 2 g calcium chloride and she received 20 mg IV Lasix. Advisor Advocate Angel Co Founder discontinued IV fluids and starting Bumex at 2 mg IV twice a day. 2-D echocardiogram revealed hyperdynamic state with EF of 65-70%. 12/15: - Afebrile. Off all vasopressors. 700 cc urine overnight. She is responding to fluids. Currently on midazolam drip. We'll attempt sedation vacation today if FiO2 decreased to around 50%. 12/16: Afebrile. Off all vasopressors. 1300 cc urine output past 24 hours. Nonoliguric. Currently on Versed and fentanyl drips. Moving all 4 extremities spontaneous. Will briefly attempt sedation vacation day but resedate BRIANA. 12/17: Patient had to be neuromuscularly paralyzed due to high peak pressures and hypoventilation. Started on Bumex drip overnight. Currently on 70% fio2, 10 PEEP , due to severe hypoxia. BUN/Creat 108/5, but urine output is adequate on Bumex drip-Nephrology wants to wait 24 hours prior to HD. Chest exam reveals severe bilateral expiratory wheezing 12/18: Patient remains critically severely hypoxemic. Good response to Bumex gtt. 5.1 L urine output in 24 hours. BUN/creatinine trending down 99/4. Potassium being replaced. Continue to wean FiO2 as tolerated remains on 55% with 12 of PEEP. I will discontinue neuromuscular blockade today 12/19: Remains critically ill but stable. FiO2 remains at 50%, PEEP just earliest 8. Urine output more than 2 L on Bumex infusion but BUN is increased to 111 creatinine stable at 4. Discussed with nephrology DC Bumex infusion and start scheduled Bumex 1 mg every 8 hours 12/20: Requiring high FiO2 at 60% without improvement remains critically ill. Worsening BUN/creatinine today 136/4.6. Urine output 1 L in 24 hours. We'll start hemodialysis today after placing Vas-Cath. Patient not tolerating sedation vacation due to ventilator synchrony 12/21: Requiring heavy sedation for vent synchrony. FiO2 down to 40%, PEEP 8. HD started yesterday, repeat today. Creatinine slightly improved with dialysis 12/22: remaining encephalopathic. hypoxia somewhat improved. severely hypertensive despite medications. KAILEE persists on HD. volume overloaded. remaining critically ill with multiple organ systems involved and off pathway. 12/23: no significant improvements. HD yesterday with 2L net negative. encephalopathy persists. off versed. weaning propofol. failing SBT. Cr still elevated. still severely oliguric. Subjective 12/24: Despite negative fluid balance, still very critically ill, encephalopathic , and unable to tolerate SBT. Will likely require tracheostomy. 12/25: Patient remains critically ill encephalopathy. Intermittently but not consistently follows commands, appears very lethargic. BUN elevated to 138 today creatinine remained stable, patient is oliguric. Plan for HD today. I discussed with patient's daughter. Chance of successful extubation is slim, will proceed with tracheostomy tentatively planned for 12/26/1612/26: Patient is awake, but lethargic. With HD yesterday BUN improved to 98 from 138. Today Diffuse bilateral wheezing on exam. Chance of successful extubation minimal, vent day 13. Proceed with trach today. D/W pulmonology Dr. Oswald and he agrees with the plane. Daughter has consented and I have explained plan to patient who is also agreeable 12/27: Patient had tracheostomy placed yesterday. Tolerated procedure well. More awake and following commands. BUN has increased today to 105 creatinine 2.3. Nephrology planning on hemodialysis today. UO 2.2 L in 24 hours 12/28 Patient s/p PEG tube placement yesterday. On Ventilator via trach on Fentanyl infusion for sedation. Afebrile. Tolerated CPAP x 6 hrs yesterday. Objective Vital Signs Date Time Temp Pulse Resp B/P (MAP) Pulse Ox O2 Delivery O2 Flow Rate FiO2 12/28/16 03:37 98 40 12/27/16 18:00 72 12/27/16 16:00 97.8 16 119/70 (86) Result Diagram: 12/28/16 0437 12/28/16 0437 Other Results Laboratory Tests Test 12/27/16 09:30 12/28/16 04:37 Urine Color YELLOW Urine Turbidity HAZY Urine pH 6.0 Urine Specific [place] 1.015 Urine Protein 30 mg/dL Urine Glucose (UA) NEG mg/dL Urine Ketones TRACE mg/dL Urine Occult Blood NEG Urine Nitrite NEG Urine Bilirubin NEG Urine Urobilinogen LESS THAN 2.0 MG/DL Urine Leukocyte Esterase LARGE Urine RBC 8 /hpf Urine WBC 55 /hpf Urine Squamous Epithelial Cells <1 /hpf Urine Bacteria OCC /hpf Urine Yeast with Hyphae MOD Urine Yeast (Budding) FEW Microscopic Urinalysis Comment CATH-CULTURE IND White Blood Count 8.0 TH/MM3 Red Blood Count 2.82 MIL/MM3 Hemoglobin 8.3 GM/DL Hematocrit 25.5 % Mean Corpuscular Volume 90.7 FL Mean Corpuscular Hemoglobin 29.5 PG Mean Corpuscular Hemoglobin Concent 32.6 % Red Cell Distribution Width 15.1 % Platelet Count 197 TH/MM3 Mean Platelet Volume 8.0 FL Blood Urea Nitrogen 54 MG/DL Creatinine 1.78 MG/DL Random Glucose 171 MG/DL Total Protein 6.5 GM/DL Albumin 3.2 GM/DL Calcium Level 7.6 MG/DL Alkaline Phosphatase 72 U/L Aspartate Amino Transf (AST/SGOT) 14 U/L Alanine Aminotransferase (ALT/SGPT) 18 U/L Total Bilirubin 0.6 MG/DL Sodium Level 139 MEQ/L Potassium Level 3.5 MEQ/L Chloride Level 100 MEQ/L Carbon Dioxide Level 30.2 MEQ/L Anion Gap 9 MEQ/L Estimat Glomerular Filtration Rate 29 ML/MIN Imaging Last Impressions Chest X-Ray 12/26/16 0000 Signed Impressions: Service Date/Time: Monday, December 26, 2016 11:56 - CONCLUSION: 1. Tracheostomy tube in good position 4 cm above the sajan. 2. Bibasilar patchiness consistent with atelectasis and/or pneumonia. 3. Cardiomegaly. Mustapha Morales MD Abdomen X-Ray 12/26/16 0000 Signed Impressions: Service Date/Time: Monday, December 26, 2016 21:33 - CONCLUSION: Nasogastric tube tip is at the gastric outlet. Nirav Savage MD Liver Ultrasound 12/16/16 0000 Signed Impressions: Service Date/Time: Friday, December 16, 2016 15:25 - CONCLUSION: 1. The liver is prominent with no focal lesion or ascites. 2. The right kidney is small and atrophic in appearance with cortical thinning and no hydronephrosis. There is increased echogenicity most characteristic of medical renal disease. Dylan Bryant MD Renal Ultrasound 12/14/16 0000 Signed Impressions: Service Date/Time: Wednesday, December 14, 2016 18:21 - CONCLUSION: Medical renal disease with echogenic kidneys. There is some atrophy of the right kidney. Nirav Camacho MD Head CT 12/14/16 0000 Signed Impressions: Service Date/Time: Wednesday, December 14, 2016 17:38 - CONCLUSION: Negative for an acute process. Sander Resendiz MD FACR Objective Remarks GENERAL: 60-year-old female, critically ill s/p trach SKIN: Warm and dry. No rash. Poor skin turgor. HEAD: Atraumatic. Normocephalic. EYES: Pupils equal and round about 3 mm bilaterally and reactive. No scleral icterus. No injection or drainage. ENT: No nasal bleeding or discharge. Mucous membranes pink and moist. Orotracheally intubated NECK: Trachea midline. JVD unable to assess due to obesity. RIJ vascath site without hematoma. Trach site C/D/I CARDIOVASCULAR: Regular rate and rhythm. RESPIRATORY: Diminished breath sounds throughout. Mild bilateral wheezing GASTROINTESTINAL: Abdomen soft, non-tender, protuberant. MUSCULOSKELETAL: Extremities without significant peripheral edema. No obvious deformities. NEUROLOGICAL: Intubated, sedated A/P Assessment and Plan Neuro/Psych: Toxic metabolic Encephalopathy - likely metabolic/CO2 retention Restless leg syndrome Diabetic neuropathy Continue Fentanyl infusion. Daily sedation vacation. CT brain 12/14 revealed no acute intracranial findings Acetaminophen for fever, Holding gabapentin 300 mg 3 times a day in light of altered mental status CV: Hypertension History of hypertension History dyslipidemia Continue hydralazine 100 3 times a day, Isordil mill grams 3 times a day. Procardia 40mg every 8 hours, clonidine 0.3 milligram TID. Labetalol 200mg po q8hr. Breakthrough labetalol and hydralazine iv. (Home medications include lisinopril 5 mill grams daily, metoprolol 50 mill grams twice a day, clonidine 0.1 mg 3 times a day, nifedipine 60 mill grams every 12 hours, Imdur 30 mg daily and hydralazine 100 mg 3 times daily.) Echocardiogram 2015 EF 55-60%. No regional wall motion abnormality. LEXIE- 61 mmHg. Mild MR. Echocardiogram 12/14/16 - EF 65-70%. No regional wall motion abnormality. Hyperdynamic state Resp: Acute hypoxemic respiratory failure Severe COPD/O2 dependent, with acute exacerbation HERACLIO/no CPAP at home Probable community-acquired pneumonia s/p Trach 12/26 Ventilator bundle, Budesonide 0.5 mg/2 mL one inhalation twice a day CPAP trials as freddy Methylprednisolone 40 mg IV Q12 At home Anoro Ellipta 62.5/25 one inhalation daily and Symbicort 160/4.5 2 puffs every 12 hours with as needed albuterol Pulm Dr. Bateman GI: Elevated transaminases- resolved s/p PEG tube placement 12/27 Restart tube feeds (Nepro) with goal rate 40ml/hr Docusate sodium/Senokot for bowel regimen. MiraLAX and lactulose Avoid hepatotoxic medications. Trending downward. CPK and hepatitis panel - negative Endo: Diabetes mellitus with neuropathy Hyperglycemia At home on insulin detemir 10 units twice a day with sliding scale insulin. on sliding scale insulin with Accu-Cheks every 4hours to maintain euglycemia/ high regimen NovoLog Levemir 10u BID Renal: Acute kidney injury in the setting of Chronic kidney disease stage 4 - AIN versus medication requiring renal replacement Monitor renal function, I/O's, avoid nephrotoxins. Renal function is improving with Cr: 1.78 today from 2.31 HD per renal-Dr. Blackmon Urine eosinophils - 0-2 and electrolytes FeNa 0.4 Renal ultrasound 12/14 indicative of medical renal disease with atrophied right kidney Continue Phoslo and Ca carbonate Heme: Normocytic anemia Monitor CBC daily ID: Probable community-acquired pneumonia s/p full course of abx(Zosyn and Levaquin). UA negative/, sputum neg to date. Blood cultures 12/14 and 12/15 negative to date. Negative urine pneumococcal and Legionella antigens Monitor for signs of infections ( Fever, WBC) Access Left IJ CVL 12/14-12/20 RIJ Vascath 12/20 Prophylaxis - GI -famotidine - DVT - SCD/heparin subcutaneous Level 3 Cam Elkins MD Dec 28, 2016 07:28
[2016-12-28] MEDS: DOCUSATE SODIUM 50 MG/SENNA 8.6 MG TAB PO SCH ×2 (09:00→21:32)
[2016-12-28] MEDS: ARTIFICIAL TEARS OPTH SOLN 15 ML BTL EACH EYE SCH ×3 (09:00→17:26)
[2016-12-28] MEDS: INSULIN DETEMIR 100 UNITS/ML VIAL SQ SCH ×2 (09:00→21:39)
[2016-12-28] MEDS: UMECLIDINIUM 62.5 MCG/VILANTEROL 25 MCG INHALER INH SCH (09:00)
[2016-12-28] MEDS: JUVEN POWDER 1 PACK G-TUBE SCH ×2 (09:00→21:00)
[2016-12-28] MEDS: LACTULOSE SYRUP 20 GM/30 ML CUP OG-TUBE SCH ×2 (09:13→21:33)
[2016-12-28] MEDS: methylPREDNISolone SOD SUCC 40 MG/1 ML VIAL IV PUSH SCH ×2 (09:14→21:33)
[2016-12-28] MEDS: CALCIUM CARBONATE 1.25 GM (CA 500 MG) TAB PO SCH ×2 (09:14→21:32)
[2016-12-28] MEDS: CALCITRIOL 0.25 MCG CAP NG SCH (09:14)
[2016-12-28] MEDS: CHOLECALCIFEROL (VIT D3) 1000 UNIT TAB NG SCH (09:14)
[2016-12-28] MEDS: FAMOTIDINE 20 MG/2 ML VIAL IV PUSH SCH ×2 (09:14→21:33)
[2016-12-28] MEDS: CALCIUM ACETATE 667 MG CAP PO SCH (09:14)
[2016-12-28] MEDS: SODIUM CHLORIDE 0.9% FLUSH 10 ML FLUSH IV FLUSH SCH ×2 (09:15→21:32)
[2016-12-28] MEDS: ARTIFICIAL TEARS OPTH OINT 3.5 APPLIC/3.5 GM TUBO EACH EYE SCH ×2 (09:15→21:31)
[2016-12-28] MEDS: SODIUM CHLORIDE 0.9% FLUSH 10 ML FLUSH IVF SCH (09:16)
[2016-12-28] MEDS: POLYETHYLENE GLYCOL 17 GM PKG OG-TUBE SCH ×2 (09:16→21:32)
[2016-12-28] MEDS: RESP: BUDESONIDE 0.5 MG/2 ML NEB NEB SCH ×2 (09:24→19:54)
--- NOTE | 2016-12-28 09:56 | HHI.NPPN ---
Subjective Renal Failure: Chronic, Acute Interval History She is awake, nodding yes/no to questions. On CPAP trial via trach. Had PEG placed yesterday, tube feeding has been started. She was dialyzed yesterday. (Tootie Grant) Review of Systems General General Remarks generalized pain (Tootie Grant) Objective Data Data Vital Signs Date Time Temp Pulse Resp B/P (MAP) Pulse Ox O2 Delivery O2 Flow Rate FiO2 12/28/16 09:28 99 40 12/28/16 06:00 69 12/28/16 04:00 70 12/28/16 04:00 50 12/28/16 04:00 97.8 70 18 188/85 (119) 97 12/28/16 03:37 98 40 12/28/16 02:00 78 12/28/16 00:00 70 12/28/16 00:00 50 12/28/16 00:00 97.9 70 18 186/86 (119) 96 12/27/16 22:00 83 12/27/16 21:08 95 40 12/27/16 20:00 75 12/27/16 20:00 50 12/27/16 20:00 97.8 75 18 144/77 (99) 96 12/27/16 18:00 72 12/27/16 16:00 68 12/27/16 16:00 50 12/27/16 16:00 97.8 66 16 119/70 (86) 96 12/27/16 15:30 40 12/27/16 15:00 18 12/27/16 14:00 71 12/27/16 12:15 40 12/27/16 12:00 70 12/27/16 12:00 96 40 12/27/16 12:00 97.9 70 13 157/97 (117) 96 Arterial Line 12/27/16 10:00 69 (Tootie Grant) -: 12/28/16 0437 12/28/16 0437 Imaging Last Impressions Chest X-Ray 12/26/16 0000 Signed Impressions: Service Date/Time: Monday, December 26, 2016 11:56 - CONCLUSION: 1. Tracheostomy tube in good position 4 cm above the sajan. 2. Bibasilar patchiness consistent with atelectasis and/or pneumonia. 3. Cardiomegaly. Mustapha Morales MD Abdomen X-Ray 12/26/16 0000 Signed Impressions: Service Date/Time: Monday, December 26, 2016 21:33 - CONCLUSION: Nasogastric tube tip is at the gastric outlet. Nirav Savage MD Liver Ultrasound 12/16/16 0000 Signed Impressions: Service Date/Time: Friday, December 16, 2016 15:25 - CONCLUSION: 1. The liver is prominent with no focal lesion or ascites. 2. The right kidney is small and atrophic in appearance with cortical thinning and no hydronephrosis. There is increased echogenicity most characteristic of medical renal disease. Dylan Bryant MD Renal Ultrasound 12/14/16 0000 Signed Impressions: Service Date/Time: Wednesday, December 14, 2016 18:21 - CONCLUSION: Medical renal disease with echogenic kidneys. There is some atrophy of the right kidney. Nirav Camacho MD Head CT 12/14/16 0000 Signed Impressions: Service Date/Time: Wednesday, December 14, 2016 17:38 - CONCLUSION: Negative for an acute process. Sander Resendiz MD FACR Tubes & Lines: Vas-Cath, Raphael Tubes & Lines Comment TLC left IJ Drip Comment fentanyl (Tootie Grant) Physical Exam General Appearance: Well Developed, No Acute Distress, Comfortable, Obese Appearance Remarks awake, on vent via trach (Tootie GrantP) Eyes Eye Exam: Pupils Equal (Tootie Grant) Throat Throat Exam: Oral Mucosa [place] & Moist Throat Remarks s/p trach placement (Tootie GrantP) Neck Neck Exam: Neck Supple (Tootie Grant) Pulmonary Resp Exam: Clear Bilaterally, Breath Sounds Equal, No Distress, Decreased Bases , Diminished Breath Sounds Resp Remarks vented lung sounds (Tootie Grant) Cardiology CV Exam: Regular, Normal Sinus Rhythm (Tootie Grant) Gastrointestinal/Abdomen GI Exam: Soft, Non-Tender, Bowel Sounds Present GI Remarks + PEG, abdominal binder in place (Tootie Grant) Musculoskeletal MS Exam: Joints Intact, Normal Tone, Unable to Ambulate (Tootie Grant) Integumentary Skin Exam: Warm, Dry (Tootie Grant) Extremeties Extremities Exam: Pedal Pulses Palpable, Moderate Edema, Pitting Edema (Tootie Grant) Neurologic Neuro Exam: Alert, Awake, Moving All Extremities (Tootie Grant) VTE Prophylaxis Device: SCDs (Tootie Grant) Assessment/Plan Assessment Summary: KAILEE/Acute Renal Failure, Acute Tubular Necrosis, Fluid/ Volume Overload, Hypertension, Diabetes Mellitus Electrolyte Assessment: Hypocalcemia Problem List: (1) Acute renal failure ICD Codes: N17.9 - Acute kidney failure, unspecified Status: Acute Plan: 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 HD initiated on the and , she has had 4 dialysis treatments with 3200 ml UF yesterday She is non oliguric with raphael catheter Monitor urine output repeat labs in AM, HD if needed; D/W patient; She is on steroids which may be contributing to high BUN Avoid nephrotoxic agents. Not on IVF Obtain daily labs (2) HCAP (healthcare-associated pneumonia) ICD Codes: J18.9 - Healthcare-associated pneumonia Status: Acute Plan: On solumedrol, she is off antibiotics. Monitor clinically (3) Acute respiratory failure ICD Codes: J96.00 - Acute respiratory failure Status: Acute Plan: Continue Ventilator support. S/p tracheostomy 12/26 Tolerating CPAP trials s/p PEG (4) DM (diabetes mellitus) ICD Codes: E11.9 - Type 2 diabetes mellitus without complications Status: Chronic Plan: continue insulin therapy goal 140-180 mg/dL (5) Hypocalcemia ICD Codes: E83.51 - Hypocalcemia Plan: PTH is high. She has secondary hyperparathyroidism Hypocalcemia persists. She is on Vitamin D3 and calcitriol Phosphorus is in normal range. Stop PhosLo and monitor response. Plan p (Tootie Grant) Plan patient was seen and examined. Dialyzed yesterday. Monitor urine output and renal function. Dialysis prn. Taper off steroids. Avoid nephrotoxins. (Thomas Blackmon MD) Problem Qualifiers (1) Acute renal failure: Qualified Codes: N17.9 - Acute kidney failure, unspecified (2) Acute respiratory failure: Qualified Codes: J96.01 - Acute respiratory failure with hypoxia; J96.02 - Acute respiratory failure with hypercapnia (3) DM (diabetes mellitus): Qualified Codes: E13.9 - Other specified diabetes mellitus without complications Tootie Grant Dec 28, 2016 09:56 Thomas Blackmon MD Dec 28, 2016 13:58
[2016-12-28 09:58] LABS: PROTHROMBIN TIME - PATIENT 10.9 SEC (9.8-11.6)
[2016-12-28] MEDS: CHLORHEXIDINE 0.12% (ORAL KIT) 15 ML CUP MT SCH ×2 (11:47→20:00)
--- NOTE | 2016-12-28 15:17 | HHI.GIFU ---
Subjective Remarks Resting in bed. Awake, on vent via trach. Tolerating TF. Denies any abdominal pain. Wants to drink a diet soda. (Callie Sims) Objective Vitals I&O Vital Signs Date Time Temp Pulse Resp B/P (MAP) Pulse Ox O2 Delivery O2 Flow Rate FiO2 12/28/16 12:00 68 12/28/16 12:00 40 12/28/16 12:00 97.8 70 13 176/86 (116) 97 12/28/16 11:32 99 40 12/28/16 10:00 69 12/28/16 09:28 99 40 12/28/16 08:25 40 12/28/16 08:00 50 12/28/16 08:00 98.0 64 18 121/65 (83) 97 12/28/16 08:00 64 12/28/16 06:00 69 12/28/16 04:00 70 12/28/16 04:00 50 12/28/16 04:00 97.8 70 18 188/85 (119) 97 12/28/16 03:37 98 40 12/28/16 02:00 78 12/28/16 00:00 70 12/28/16 00:00 50 12/28/16 00:00 97.9 70 18 186/86 (119) 96 12/27/16 22:00 83 12/27/16 21:08 95 40 12/27/16 20:00 75 12/27/16 20:00 50 12/27/16 20:00 97.8 75 18 144/77 (99) 96 12/27/16 18:00 72 12/27/16 16:00 68 12/27/16 16:00 50 12/27/16 16:00 97.8 66 16 119/70 (86) 96 12/27/16 15:30 40 I/O 12/27/16 12/27/16 12/27/16 12/28/16 12/28/16 12/28/16 07:00 15:00 23:00 07:00 15:00 23:00 Intake Total 260 ml 450 ml 267 ml Output Total 700 ml 3850 ml 200 ml Balance -440 ml -3400 ml 67 ml Intake IV Total 200 ml 67 ml Other 260 ml 250 ml 200 ml Output Urine Total 700 ml 650 ml 200 ml Hemodialysis 3200 ml # Bowel Movements 0 Laboratory Laboratory Tests Test 12/28/16 04:37 12/28/16 09:22 White Blood Count 8.0 Red Blood Count 2.82 Hemoglobin 8.3 Hematocrit 25.5 Mean Corpuscular Volume 90.7 Mean Corpuscular Hemoglobin 29.5 Mean Corpuscular Hemoglobin Concent 32.6 Red Cell Distribution Width 15.1 Platelet Count 197 Mean Platelet Volume 8.0 Blood Urea Nitrogen 54 Creatinine 1.78 Random Glucose 171 Total Protein 6.5 Albumin 3.2 Calcium Level 7.6 Alkaline Phosphatase 72 Aspartate Amino Transf (AST/SGOT) 14 Alanine Aminotransferase (ALT/SGPT) 18 Total Bilirubin 0.6 Sodium Level 139 Potassium Level 3.5 Chloride Level 100 Carbon Dioxide Level 30.2 Anion Gap 9 Estimat Glomerular Filtration Rate 29 Prothrombin Time 10.9 Prothromb Time International Ratio 1.0 Date/Time Source Procedure Growth Status 12/15/16 05:03 Blood Peripheral Aerobic Blood Culture - Final NO GROWTH IN 5 DAYS Complete 12/15/16 05:03 Blood Peripheral Anaerobic Blood Culture - Final NO GROWTH IN 5 DAYS Complete 12/16/16 10:00 Sputum Endotracheal Gram Stain - Final Complete 12/16/16 10:00 Sputum Endotracheal Sputum Culture - Final LIGHT GROWTH NORMAL RESPIRATORY SLAVA Complete 12/27/16 09:30 Urine Catheterized Urine Urine Culture - Final Chaya Albicans Complete Imaging Last Impressions Chest X-Ray 12/26/16 0000 Signed Impressions: Service Date/Time: Monday, December 26, 2016 11:56 - CONCLUSION: 1. Tracheostomy tube in good position 4 cm above the sajan. 2. Bibasilar patchiness consistent with atelectasis and/or pneumonia. 3. Cardiomegaly. Mustapha Morales MD Abdomen X-Ray 12/26/16 0000 Signed Impressions: Service Date/Time: Monday, December 26, 2016 21:33 - CONCLUSION: Nasogastric tube tip is at the gastric outlet. Nirav Savage MD Liver Ultrasound 12/16/16 0000 Signed Impressions: Service Date/Time: Friday, December 16, 2016 15:25 - CONCLUSION: 1. The liver is prominent with no focal lesion or ascites. 2. The right kidney is small and atrophic in appearance with cortical thinning and no hydronephrosis. There is increased echogenicity most characteristic of medical renal disease. Dylan Bryant MD Renal Ultrasound 12/14/16 0000 Signed Impressions: Service Date/Time: Wednesday, December 14, 2016 18:21 - CONCLUSION: Medical renal disease with echogenic kidneys. There is some atrophy of the right kidney. Nirav Camacho MD Head CT 12/14/16 0000 Signed Impressions: Service Date/Time: Wednesday, December 14, 2016 17:38 - CONCLUSION: Negative for an acute process. Sander Resendiz MD FACR Physical Exam HEENT: Normocephalic; atraumatic; no jaundice CHEST: Tracheostomy, vent. Diminished breath sounds. CARDIAC: RRR ABDOMEN: Soft, obese, slightly distended, nontender, bowel sounds are present in all four quadrants. PEG tube site without redness or swelling EXTREMITIES: Generalized edema. SKIN: Normal; no rash; no jaundice. [employer] TANK: Awake follows commands (Callie Sims) Assessment and Plan Plan ASSESSMENT: - Dysphagia, FEN. Pt in ICU, with respiratory failure, severe copd, heraclio, suspected cap, requiring prolonged mechanical ventilation. S/P tracheostomy placement. GI consulted for PEG tube placement. Adolescent Coordinator recommends Nepro at 40cc/hr and discontinuing the Steve BID. S/P EGD with peg tube placement (12/27/16)-- -> 1. The upper, middle, and distal third of the esophagus were carefully inspected and no abnormalities were noted. The z- line was well seen at the GEJ. The endoscope was pushed into the fundus which was normal including a retroflexed view. The antrum, first and second part of the duodenum were unremarkable. 2. No abnormalities 3.S/p peg placement. Site without redness or swelling. Tolerating TF. - Respiratory failure, COPD, HERACLIO, Suspected CAP. S/P tracheostomy, per CCM - Acute on chronic kidney disease, DM, encephalopathy, htn, hyperlipidemia, per attending PLAN: - Nepro at 40cc/hr - D/C Steve - GI will sign off, please reconsult as needed - Pt seen and examined by Dr. Barber and myself and this note is written on her behalf (Callie Sims) Physician Comments agree with above (Swathi Barber MD) Callie Sims Dec 28, 2016 15:17 Swathi Barber MD Dec 28, 2016 20:06
[2016-12-29] VITALS (17 sets, daily range): BP systolic 121–165; BP diastolic 60–78; PULSE 65–83; RESP 18–34; TEMP 98.6–99.6; O2SAT 93–100
[2016-12-29] MEDS: RESP: ALBUTEROL 2.5 MG/IPRATROPIUM 0.5 MG NEB (SCH) INH ×5 (00:07→20:19)
[2016-12-29] MEDS: INSULIN ASPART SUPPLEMENTAL SCALE SQ SCH ×7 (00:59→23:58)
[2016-12-29] MEDS: SODIUM CHLOR 0.9% 1000 ML INJ 1,000 ML IV SCH (03:00)
[2016-12-29] MEDS: CHLORHEXIDINE GLUCONATE 2 % 1 PACK (2 CLOTHS) TOP SCH (04:00)
[2016-12-29] MEDS: LABETALOL HCL 200 MG TAB PO SCH ×3 (04:47→21:18)
[2016-12-29] MEDS: HEPARIN SODIUM - SQ 10,000 UNITS/ML VIAL SQ SCH ×2 (05:00→18:15)
[2016-12-29] MEDS: cloNIDine HCL 0.3 MG TAB PO SCH ×3 (05:01→21:18)
[2016-12-29] MEDS: NIFEdipine 20 MG CAP PO SCH ×3 (05:01→21:20)
[2016-12-29] MEDS: ISOSORBIDE DINITRATE 10 MG TAB PO SCH ×3 (05:01→21:18)
[2016-12-29] MEDS: hydrALAZINE HCL 100 MG TAB PO SCH ×3 (05:01→21:18)
[2016-12-29] MEDS: RESP: BUDESONIDE 0.5 MG/2 ML NEB NEB SCH ×2 (08:18→20:19)
[2016-12-29] MEDS: ARTIFICIAL TEARS OPTH SOLN 15 ML BTL EACH EYE SCH ×3 (09:00→18:00)
[2016-12-29] MEDS: UMECLIDINIUM 62.5 MCG/VILANTEROL 25 MCG INHALER INH SCH (09:00)
[2016-12-29] MEDS: JUVEN POWDER 1 PACK G-TUBE SCH ×2 (09:00→21:00)
[2016-12-29] MEDS: LACTULOSE SYRUP 20 GM/30 ML CUP OG-TUBE SCH ×2 (09:00→21:18)
[2016-12-29] MEDS: SODIUM CHLORIDE 0.9% FLUSH 10 ML FLUSH IVF SCH (09:00)
--- NOTE | 2016-12-29 09:11 | HHI.CCPN ---
Subjective Remarks/Hospital Course 61-year-old female. Date of admission 12/14/2016. Past records includes COPD/oxygen dependent, obstructive sleep apnea not using nocturnal CPAP , hypertension, morbid obesity. Hypertension, chronic kidney disease stage IV. She presents to [facility] 2 day history of shortness of breath. She is essentially in extremis 100 hour troponin emergency report. She is immediately placed on BiPAP however failed and was emergently endotracheally intubated. She required 100% FiO2 and was intermittently hypotensive the ED. CT head negative. Chest x-ray revealed possible vascular congestion. She is also noted of a calcium of 5.0. Elevated creatinine 5.1 with a baseline 1.9. she received 2 g calcium chloride and she received 20 mg IV Lasix. [employer] discontinued IV fluids and starting Bumex at 2 mg IV twice a day. 2-D echocardiogram revealed hyperdynamic state with EF of 65-70%. 12/15: - Afebrile. Off all vasopressors. 700 cc urine overnight. She is responding to fluids. Currently on midazolam drip. We'll attempt sedation vacation today if FiO2 decreased to around 50%. 12/16: Afebrile. Off all vasopressors. 1300 cc urine output past 24 hours. Nonoliguric. Currently on Versed and fentanyl drips. Moving all 4 extremities spontaneous. Will briefly attempt sedation vacation day but resedate BRIANA. 12/17: Patient had to be neuromuscularly paralyzed due to high peak pressures and hypoventilation. Started on Bumex drip overnight. Currently on 70% fio2, 10 PEEP , due to severe hypoxia. BUN/Creat 108/5, but urine output is adequate on Bumex drip-Nephrology wants to wait 24 hours prior to HD. Chest exam reveals severe bilateral expiratory wheezing 12/18: Patient remains critically severely hypoxemic. Good response to Bumex gtt. 5.1 L urine output in 24 hours. BUN/creatinine trending down 99/4. Potassium being replaced. Continue to wean FiO2 as tolerated remains on 55% with 12 of PEEP. I will discontinue neuromuscular blockade today 12/19: Remains critically ill but stable. FiO2 remains at 50%, PEEP just earliest 8. Urine output more than 2 L on Bumex infusion but BUN is increased to 111 creatinine stable at 4. Discussed with nephrology DC Bumex infusion and start scheduled Bumex 1 mg every 8 hours 12/20: Requiring high FiO2 at 60% without improvement remains critically ill. Worsening BUN/creatinine today 136/4.6. Urine output 1 L in 24 hours. We'll start hemodialysis today after placing Vas-Cath. Patient not tolerating sedation vacation due to ventilator synchrony 12/21: Requiring heavy sedation for vent synchrony. FiO2 down to 40%, PEEP 8. HD started yesterday, repeat today. Creatinine slightly improved with dialysis 12/22: remaining encephalopathic. hypoxia somewhat improved. severely hypertensive despite medications. KAILEE persists on HD. volume overloaded. remaining critically ill with multiple organ systems involved and off pathway. 12/23: no significant improvements. HD yesterday with 2L net negative. encephalopathy persists. off versed. weaning propofol. failing SBT. Cr still elevated. still severely oliguric. Subjective 12/24: Despite negative fluid balance, still very critically ill, encephalopathic , and unable to tolerate SBT. Will likely require tracheostomy. 12/25: Patient remains critically ill encephalopathy. Intermittently but not consistently follows commands, appears very lethargic. BUN elevated to 138 today creatinine remained stable, patient is oliguric. Plan for HD today. I discussed with patient's daughter. Chance of successful extubation is slim, will proceed with tracheostomy tentatively planned for 12/26/1612/26: Patient is awake, but lethargic. With HD yesterday BUN improved to 98 from 138. Today Diffuse bilateral wheezing on exam. Chance of successful extubation minimal, vent day 13. Proceed with trach today. D/W pulmonology Dr. Oswald and he agrees with the plane. Daughter has consented and I have explained plan to patient who is also agreeable 12/27: Patient had tracheostomy placed yesterday. Tolerated procedure well. More awake and following commands. BUN has increased today to 105 creatinine 2.3. Nephrology planning on hemodialysis today. UO 2.2 L in 24 hours 12/28 Patient s/p PEG tube placement yesterday. On Ventilator via trach on Fentanyl infusion for sedation. Afebrile. Tolerated CPAP x 6 hrs yesterday. 12/29 No events overnight. Sedated with Fentanyl and on ventilator via trach. Tolerated CPAP all day yesterday. Afebrile. Objective Vital Signs Date Time Temp Pulse Resp B/P (MAP) Pulse Ox O2 Delivery O2 Flow Rate FiO2 12/29/16 08:19 93 40 12/29/16 06:00 70 12/29/16 04:00 98.6 18 134/71 (92) Intake and Output 12/29/16 12/29/16 12/30/16 08:00 16:00 00:00 Intake Total 846 ml Output Total 650 ml Balance 196 ml Result Diagram: 12/28/16 0437 12/28/16 0437 Other Results Laboratory Tests Test 12/28/16 09:22 Prothrombin Time 10.9 SEC Prothromb Time International Ratio 1.0 RATIO Imaging Last Impressions Chest X-Ray 12/26/16 0000 Signed Impressions: Service Date/Time: Monday, December 26, 2016 11:56 - CONCLUSION: 1. Tracheostomy tube in good position 4 cm above the sajan. 2. Bibasilar patchiness consistent with atelectasis and/or pneumonia. 3. Cardiomegaly. Mustapha Morales MD Abdomen X-Ray 12/26/16 0000 Signed Impressions: Service Date/Time: Monday, December 26, 2016 21:33 - CONCLUSION: Nasogastric tube tip is at the gastric outlet. Nirav Savage MD Liver Ultrasound 12/16/16 0000 Signed Impressions: Service Date/Time: Friday, December 16, 2016 15:25 - CONCLUSION: 1. The liver is prominent with no focal lesion or ascites. 2. The right kidney is small and atrophic in appearance with cortical thinning and no hydronephrosis. There is increased echogenicity most characteristic of medical renal disease. Dylan Bryant MD Renal Ultrasound 12/14/16 0000 Signed Impressions: Service Date/Time: Wednesday, December 14, 2016 18:21 - CONCLUSION: Medical renal disease with echogenic kidneys. There is some atrophy of the right kidney. Nirav Camacho MD Head CT 12/14/16 0000 Signed Impressions: Service Date/Time: Wednesday, December 14, 2016 17:38 - CONCLUSION: Negative for an acute process. Sander Resendiz MD FACR Objective Remarks GENERAL: 60-year-old female, critically ill s/p trach SKIN: Warm and dry. No rash. Poor skin turgor. HEAD: Atraumatic. Normocephalic. EYES: Pupils equal and round about 3 mm bilaterally and reactive. No scleral icterus. No injection or drainage. ENT: No nasal bleeding or discharge. Mucous membranes pink and moist. Orotracheally intubated NECK: Trachea midline. JVD unable to assess due to obesity. RIJ vascath site without hematoma. Trach site C/D/I CARDIOVASCULAR: Regular rate and rhythm. RESPIRATORY: Diminished breath sounds throughout. Mild bilateral wheezing GASTROINTESTINAL: Abdomen soft, non-tender, protuberant. MUSCULOSKELETAL: Extremities without significant peripheral edema. No obvious deformities. NEUROLOGICAL: Intubated, sedated A/P Assessment and Plan Neuro/Psych: Toxic metabolic Encephalopathy - likely metabolic/CO2 retention Restless leg syndrome Diabetic neuropathy Continue Fentanyl infusion. Daily sedation vacation. CT brain 12/14 revealed no acute intracranial findings Acetaminophen for fever, Holding gabapentin 300 mg 3 times a day in light of altered mental status CV: Hypertension History of hypertension History dyslipidemia Monitor HR and BP keep MAP >65mmHg Continue hydralazine 100 3 times a day, Isordil mill grams 3 times a day. Procardia 40mg every 8 hours, clonidine 0.3 milligram TID. Labetalol 200mg po q8hr. Breakthrough labetalol and hydralazine iv. (Home medications include lisinopril 5 mill grams daily, metoprolol 50 mill grams twice a day, clonidine 0.1 mg 3 times a day, nifedipine 60 mill grams every 12 hours, Imdur 30 mg daily and hydralazine 100 mg 3 times daily.) Echocardiogram 2015 EF 55-60%. No regional wall motion abnormality. LEXIE- 61 mmHg. Mild MR. Echocardiogram 12/14/16 - EF 65-70%. No regional wall motion abnormality. Hyperdynamic state Resp: Acute hypoxemic respiratory failure Severe COPD/O2 dependent, with acute exacerbation HERACLIO/no CPAP at home Probable community-acquired pneumonia s/p Trach 12/26 Ventilator bundle, Budesonide 0.5 mg/2 mL one inhalation twice a day CPAP trials as freddy Methylprednisolone 40 mg IV Q12 At home Anoro Ellipta 62.5/25 one inhalation daily and Symbicort 160/4.5 2 puffs every 12 hours with as needed albuterol Pulm Dr. Bateman GI: Elevated transaminases- resolved s/p PEG tube placement 12/27 On tube feeds (Nepro)@40ml/hr Docusate sodium/Senokot for bowel regimen. MiraLAX and lactulose Avoid hepatotoxic medications. Trending downward. CPK and hepatitis panel - negative Endo: Diabetes mellitus with neuropathy Hyperglycemia At home on insulin detemir 10 units twice a day with sliding scale insulin. on sliding scale insulin with Accu-Cheks every 4hours to maintain euglycemia/ high regimen NovoLog Levemir 10u BID Renal: Acute kidney injury in the setting of Chronic kidney disease stage 4 - AIN versus medication requiring renal replacement Monitor renal function, I/O's, avoid nephrotoxins. Follow up on BMP today HD per renal-Dr. Blackmon s/p HD 12/27 with removal 3.2L Urine eosinophils - 0-2 and electrolytes FeNa 0.4 Renal ultrasound 12/14 indicative of medical renal disease with atrophied right kidney Continue Phoslo and Ca carbonate Heme: Normocytic anemia Monitor CBC ID: Probable community-acquired pneumonia UTI Urine cx 12/27: C. Albicans. Diflucan 100mg daily x 7 days s/p full course of abx(Zosyn and Levaquin). UA negative/, sputum neg to date. Blood cultures 12/14 and 12/15 negative to date. Negative urine pneumococcal and Legionella antigens Monitor for signs of infections ( Fever, WBC) Access Left IJ CVL 12/14-12/20 ANDREA [place] 12/20 Prophylaxis - GI -famotidine - DVT - SCD/heparin subcutaneous Follow up on labs today Level 3 Cam Elkins MD Dec 29, 2016 09:11
--- NOTE | 2016-12-29 09:14 | HHI.NPPN ---
Subjective Renal Failure: Chronic, Acute Interval History Non oliguric. Labs are pending. s/p Trach/PEG. Review of Systems General General Remarks generalized pain Objective Data Data Vital Signs Date Time Temp Pulse Resp B/P (MAP) Pulse Ox O2 Delivery O2 Flow Rate FiO2 12/29/16 08:19 93 40 12/29/16 06:00 70 12/29/16 05:10 99 40 12/29/16 04:00 40 12/29/16 04:00 98.6 70 18 134/71 (92) 98 12/29/16 04:00 65 12/29/16 02:00 71 12/29/16 00:07 99 40 12/29/16 00:00 71 12/29/16 00:00 40 12/29/16 00:00 98.6 71 18 134/68 (90) 99 12/28/16 22:00 75 12/28/16 20:00 40 12/28/16 20:00 77 12/28/16 20:00 99.8 74 23 135/65 (88) 97 12/28/16 19:54 97 40 12/28/16 18:00 79 12/28/16 16:16 100 40 12/28/16 16:00 98.2 74 17 127/69 (88) 76 12/28/16 16:00 77 12/28/16 16:00 40 12/28/16 14:00 78 12/28/16 12:00 68 12/28/16 12:00 40 12/28/16 12:00 97.8 70 13 176/86 (116) 97 12/28/16 11:32 99 40 12/28/16 10:00 69 12/28/16 09:28 99 40 -: 12/28/16 0437 12/28/16 0437 Tubes & Lines: Vas-Cath, Bonilla Tubes & Lines Comment TLC left IJ Drip Comment fentanyl Physical Exam General Appearance: Well Developed, No Acute Distress, Comfortable, Obese Eyes Eye Exam: Pupils Equal Throat Throat Exam: Oral Mucosa [place] & Moist Neck Neck Exam: Neck Supple Pulmonary Resp Exam: Clear Bilaterally, Breath Sounds Equal, No Distress, Decreased Bases , Diminished Breath Sounds Cardiology CV Exam: Regular, Normal Sinus Rhythm Gastrointestinal/Abdomen GI Exam: Soft, Non-Tender, Bowel Sounds Present Musculoskeletal MS Exam: Joints Intact, Normal Tone, Unable to Ambulate Integumentary Skin Exam: Warm, Dry Extremeties Extremities Exam: Pedal Pulses Palpable, Moderate Edema, Pitting Edema Neurologic Neuro Exam: Alert, Awake, Moving All Extremities VTE Prophylaxis Device: SCDs Assessment/Plan Assessment Summary: KAILEE/Acute Renal Failure, Acute Tubular Necrosis, Fluid/ Volume Overload, Hypertension, Diabetes Mellitus Electrolyte Assessment: Hypocalcemia Problem List: (1) Acute renal failure ICD Codes: N17.9 - Acute kidney failure, unspecified Status: Acute Plan: 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 HD initiated on the . She is non oliguric with Bonilla catheter Monitor urine output repeat labs in AM, HD if needed; D/W patient; She is on steroids which may be contributing to high BUN. Taper down steroids. Avoid nephrotoxic agents. Not on IVF Obtain daily labs Dialysis as needed. (2) HCAP (healthcare-associated pneumonia) ICD Codes: J18.9 - Healthcare-associated pneumonia Status: Acute Plan: On solumedrol, she is off antibiotics. Monitor clinically (3) Acute respiratory failure ICD Codes: J96.00 - Acute respiratory failure Status: Acute Plan: Continue Ventilator support. S/p tracheostomy 12/26 Tolerating CPAP trials s/p PEG (4) DM (diabetes mellitus) ICD Codes: E11.9 - Type 2 diabetes mellitus without complications Status: Chronic Plan: continue insulin therapy goal 140-180 mg/dL (5) Hypocalcemia ICD Codes: E83.51 - Hypocalcemia Plan: PTH is high. She has secondary hyperparathyroidism Hypocalcemia persists. She is on Vitamin D3 and calcitriol Phosphorus is in normal range. Stop PhosLo and monitor response. Problem Qualifiers (1) Acute renal failure: Qualified Codes: N17.9 - Acute kidney failure, unspecified (2) Acute respiratory failure: Qualified Codes: J96.01 - Acute respiratory failure with hypoxia; J96.02 - Acute respiratory failure with hypercapnia (3) DM (diabetes mellitus): Qualified Codes: E13.9 - Other specified diabetes mellitus without complications Thomas Blackmon MD Dec 29, 2016 09:14
[2016-12-29] MEDS: methylPREDNISolone SOD SUCC 40 MG/1 ML VIAL IV PUSH SCH (09:22)
[2016-12-29] MEDS: INSULIN DETEMIR 100 UNITS/ML VIAL SQ SCH ×2 (09:22→21:00)
[2016-12-29] MEDS: POLYETHYLENE GLYCOL 17 GM PKG OG-TUBE SCH ×2 (09:22→21:17)
[2016-12-29] MEDS: DOCUSATE SODIUM 50 MG/SENNA 8.6 MG TAB PO SCH ×2 (09:22→21:18)
[2016-12-29] MEDS: CHOLECALCIFEROL (VIT D3) 1000 UNIT TAB NG SCH (09:22)
[2016-12-29] MEDS: FAMOTIDINE 20 MG/2 ML VIAL IV PUSH SCH ×2 (09:22→21:19)
[2016-12-29] MEDS: CALCIUM CARBONATE 1.25 GM (CA 500 MG) TAB PO SCH ×2 (09:22→21:18)
[2016-12-29] MEDS: SODIUM CHLORIDE 0.9% FLUSH 10 ML FLUSH IV FLUSH SCH ×2 (09:23→21:19)
[2016-12-29] MEDS: ARTIFICIAL TEARS OPTH OINT 3.5 APPLIC/3.5 GM TUBO EACH EYE SCH ×2 (09:24→21:19)
[2016-12-29] MEDS: CHLORHEXIDINE 0.12% (ORAL KIT) 15 ML CUP MT SCH ×2 (09:26→21:19)
[2016-12-29] MEDS: CALCITRIOL 0.25 MCG CAP NG SCH (09:28)
[2016-12-29 09:52] LABS: BASOPHIL % 0.1 % (0.0-2.0); EOSINOPHIL % 0.2 % (0.0-4.0); HEMATOCRIT 25.6 % (35.0-46.0); HEMO FLAGS DIFF FINAL; LYMPH % 6.4 % (9.0-44.0); LYMPHOCYTE # 0.6 TH/MM3 (1.0-4.8); MEAN CELL VOLUME 90.6 FL (80.0-100.0); MEAN CORPUSCULAR HEMOGLOBIN 30.6 PG (27.0-34.0); MEAN CORPUSCULAR HGB CONC 33.8 % (32.0-36.0); MONO % 4.2 % (0.0-8.0); NEUT % 89.1 % (16.0-70.0); PLATELET COUNT 201 TH/MM3 (150-450); RED BLOOD COUNT 2.83 MIL/MM3 (4.00-5.30); RED CELL DISTRIBUTION WIDTH 15.4 % (11.6-17.2); WHITE BLOOD COUNT 8.9 TH/MM3 (4.0-11.0)
[2016-12-29 10:21] LABS: BICARBONATE 29.4 MEQ/L (21.0-32.0); POTASSIUM 3.2 MEQ/L (3.5-5.1)
[2016-12-29] MEDS ORDERED: POTASSIUM PHOSPHATE INJ 15 MMOL in SODIUM CHLORIDE 0.9% INJ 150 ML IV ONE (11:45)
[2016-12-29] MEDS: FLUCONAZOLE 100 MG TAB PO SCH (11:59)
[2016-12-29 12:23] LABS: POTASSIUM 3.4 MEQ/L (3.5-5.1)
[2016-12-29 23:17] LABS: POTASSIUM 3.3 MEQ/L (3.5-5.1)
[2016-12-30] VITALS (17 sets, daily range): BP systolic 100–179; BP diastolic 60–84; PULSE 59–80; RESP 19–35; TEMP 97.9–98.9; O2SAT 94–100
[2016-12-30] MEDS ORDERED: POTASSIUM CHLORIDE 20 MEQ PWD PACKET PO SCH (00:15)
[2016-12-30] MEDS: RESP: ALBUTEROL 2.5 MG/IPRATROPIUM 0.5 MG NEB (SCH) INH ×6 (00:17→20:33)
[2016-12-30] MEDS: SODIUM CHLOR 0.9% 1000 ML INJ 1,000 ML IV SCH (03:00)
[2016-12-30] MEDS: CHLORHEXIDINE GLUCONATE 2 % 1 PACK (2 CLOTHS) TOP SCH ×2 (04:00→23:39)
[2016-12-30] MEDS: HEPARIN SODIUM - SQ 10,000 UNITS/ML VIAL SQ SCH ×2 (04:00→16:27)
[2016-12-30] MEDS: LABETALOL HCL 200 MG TAB PO SCH ×3 (04:00→23:36)
[2016-12-30] MEDS: INSULIN ASPART SUPPLEMENTAL SCALE SQ SCH ×5 (04:00→20:00)
[2016-12-30 05:02] LABS: AUTOMATED NEUTROPHIL # 6.6 TH/MM3 (1.8-7.7); BASOPHIL % 0.1 % (0.0-2.0); EOSINOPHIL # 0.1 TH/MM3 (0-0.4); EOSINOPHIL % 1.1 % (0.0-4.0); HEMATOCRIT 27.8 % (35.0-46.0); HEMO FLAGS DIFF FINAL; LYMPH % 10.6 % (9.0-44.0); LYMPHOCYTE # 0.8 TH/MM3 (1.0-4.8); MEAN CELL VOLUME 91.8 FL (80.0-100.0); MEAN CORPUSCULAR HEMOGLOBIN 29.5 PG (27.0-34.0); MEAN CORPUSCULAR HGB CONC 32.2 % (32.0-36.0); MONO % 3.4 % (0.0-8.0); NEUT % 84.8 % (16.0-70.0); PLATELET COUNT 192 TH/MM3 (150-450); RED BLOOD COUNT 3.03 MIL/MM3 (4.00-5.30); RED CELL DISTRIBUTION WIDTH 15.6 % (11.6-17.2); WHITE BLOOD COUNT 7.8 TH/MM3 (4.0-11.0)
[2016-12-30 05:20] LABS: BICARBONATE 29.1 MEQ/L (21.0-32.0); POTASSIUM 4.5 MEQ/L (3.5-5.1)
[2016-12-30] MEDS: hydrALAZINE HCL 100 MG TAB PO SCH ×3 (05:37→23:36)
[2016-12-30] MEDS: cloNIDine HCL 0.3 MG TAB PO SCH ×3 (05:37→23:42)
[2016-12-30] MEDS: NIFEdipine 20 MG CAP PO SCH ×3 (05:37→23:36)
[2016-12-30] MEDS: ISOSORBIDE DINITRATE 10 MG TAB PO SCH ×3 (05:37→23:36)
--- NOTE | 2016-12-30 08:06 | HHI.CCPN ---
Subjective Remarks/Hospital Course 61-year-old female. Date of admission 12/14/2016. Past records includes COPD/oxygen dependent, obstructive sleep apnea not using nocturnal CPAP , hypertension, morbid obesity. Hypertension, chronic kidney disease stage IV. She presents to [facility] 2 day history of shortness of breath. She is essentially in extremis 100 hour troponin emergency report. She is immediately placed on BiPAP however failed and was emergently endotracheally intubated. She required 100% FiO2 and was intermittently hypotensive the ED. CT head negative. Chest x-ray revealed possible vascular congestion. She is also noted of a calcium of 5.0. Elevated creatinine 5.1 with a baseline 1.9. she received 2 g calcium chloride and she received 20 mg IV Lasix. Electrical Line [employer] discontinued IV fluids and starting Bumex at 2 mg IV twice a day. 2-D echocardiogram revealed hyperdynamic state with EF of 65-70%. 12/15: - Afebrile. Off all vasopressors. 700 cc urine overnight. She is responding to fluids. Currently on midazolam drip. We'll attempt sedation vacation today if FiO2 decreased to around 50%. 12/16: Afebrile. Off all vasopressors. 1300 cc urine output past 24 hours. Nonoliguric. Currently on Versed and fentanyl drips. Moving all 4 extremities spontaneous. Will briefly attempt sedation vacation day but resedate BRIANA. 12/17: Patient had to be neuromuscularly paralyzed due to high peak pressures and hypoventilation. Started on Bumex drip overnight. Currently on 70% fio2, 10 PEEP , due to severe hypoxia. BUN/Creat 108/5, but urine output is adequate on Bumex drip-Nephrology wants to wait 24 hours prior to HD. Chest exam reveals severe bilateral expiratory wheezing 12/18: Patient remains critically severely hypoxemic. Good response to Bumex gtt. 5.1 L urine output in 24 hours. BUN/creatinine trending down 99/4. Potassium being replaced. Continue to wean FiO2 as tolerated remains on 55% with 12 of PEEP. I will discontinue neuromuscular blockade today 12/19: Remains critically ill but stable. FiO2 remains at 50%, PEEP just earliest 8. Urine output more than 2 L on Bumex infusion but BUN is increased to 111 creatinine stable at 4. Discussed with nephrology DC Bumex infusion and start scheduled Bumex 1 mg every 8 hours 12/20: Requiring high FiO2 at 60% without improvement remains critically ill. Worsening BUN/creatinine today 136/4.6. Urine output 1 L in 24 hours. We'll start hemodialysis today after placing Vas-Cath. Patient not tolerating sedation vacation due to ventilator synchrony 12/21: Requiring heavy sedation for vent synchrony. FiO2 down to 40%, PEEP 8. HD started yesterday, repeat today. Creatinine slightly improved with dialysis 12/22: remaining encephalopathic. hypoxia somewhat improved. severely hypertensive despite medications. KAILEE persists on HD. volume overloaded. remaining critically ill with multiple organ systems involved and off pathway. 12/23: no significant improvements. HD yesterday with 2L net negative. encephalopathy persists. off versed. weaning propofol. failing SBT. Cr still elevated. still severely oliguric. Subjective 12/24: Despite negative fluid balance, still very critically ill, encephalopathic , and unable to tolerate SBT. Will likely require tracheostomy. 12/25: Patient remains critically ill encephalopathy. Intermittently but not consistently follows commands, appears very lethargic. BUN elevated to 138 today creatinine remained stable, patient is oliguric. Plan for HD today. I discussed with patient's daughter. Chance of successful extubation is slim, will proceed with tracheostomy tentatively planned for 12/26/1612/26: Patient is awake, but lethargic. With HD yesterday BUN improved to 98 from 138. Today Diffuse bilateral wheezing on exam. Chance of successful extubation minimal, vent day 13. Proceed with trach today. D/W pulmonology Dr. Oswald and he agrees with the plane. Daughter has consented and I have explained plan to patient who is also agreeable 12/27: Patient had tracheostomy placed yesterday. Tolerated procedure well. More awake and following commands. BUN has increased today to 105 creatinine 2.3. Nephrology planning on hemodialysis today. UO 2.2 L in 24 hours 12/28 Patient s/p PEG tube placement yesterday. On Ventilator via trach on Fentanyl infusion for sedation. Afebrile. Tolerated CPAP x 6 hrs yesterday. 12/29 No events overnight. Sedated with Fentanyl and on ventilator via trach. Tolerated CPAP all day yesterday. Afebrile. 12/30 Patient is off sedation tolerated TP 's with 50% FIO2 yesterday for several hrs kept ON CPAP overnight with PS 12, PEEP:8 and FIO2 40%. Afebrile. Objective Vital Signs Date Time Temp Pulse Resp B/P (MAP) Pulse Ox O2 Delivery O2 Flow Rate FiO2 12/30/16 06:00 69 12/30/16 04:19 100 40 12/30/16 04:00 98.2 22 158/70 (99) 12/29/16 14:00 T-piece 10.00 Intake and Output 12/30/16 12/30/16 12/31/16 08:00 16:00 00:00 Intake Total 609 ml Output Total 250 ml Balance 359 ml Result Diagram: 12/30/16 0411 12/30/16 0411 Other Results Laboratory Tests Test 12/29/16 08:30 12/29/16 11:55 12/29/16 22:42 12/30/16 04:11 White Blood Count 8.9 TH/MM3 7.8 TH/MM3 Red Blood Count 2.83 MIL/MM3 3.03 MIL/MM3 Hemoglobin 8.6 GM/DL 9.0 GM/DL Hematocrit 25.6 % 27.8 % Mean Corpuscular Volume 90.6 FL 91.8 FL Mean Corpuscular Hemoglobin 30.6 PG 29.5 PG Mean Corpuscular Hemoglobin Concent 33.8 % 32.2 % Red Cell Distribution Width 15.4 % 15.6 % Platelet Count 201 TH/MM3 192 TH/MM3 Mean Platelet Volume 8.4 FL 8.0 FL Neutrophils (%) (Auto) 89.1 % 84.8 % Lymphocytes (%) (Auto) 6.4 % 10.6 % Monocytes (%) (Auto) 4.2 % 3.4 % Eosinophils (%) (Auto) 0.2 % 1.1 % Basophils (%) (Auto) 0.1 % 0.1 % Neutrophils # (Auto) 8.0 TH/MM3 6.6 TH/MM3 Lymphocytes # (Auto) 0.6 TH/MM3 0.8 TH/MM3 Monocytes # (Auto) 0.4 TH/MM3 0.3 TH/MM3 Eosinophils # (Auto) 0.0 TH/MM3 0.1 TH/MM3 Basophils # (Auto) 0.0 TH/MM3 0.0 TH/MM3 CBC Comment DIFF FINAL DIFF FINAL Differential Comment Blood Urea Nitrogen 67 MG/DL 67 MG/DL 66 MG/DL Creatinine 2.21 MG/DL 2.17 MG/DL 2.06 MG/DL Random Glucose 152 MG/DL 149 MG/DL 158 MG/DL Calcium Level 8.8 MG/DL 8.1 MG/DL 8.4 MG/DL Phosphorus Level 2.3 MG/DL 2.9 MG/DL 3.1 MG/DL Sodium Level 140 MEQ/L 140 MEQ/L 138 MEQ/L Potassium Level 3.2 MEQ/L 3.4 MEQ/L 3.3 MEQ/L 4.5 MEQ/L Chloride Level 100 MEQ/L 102 MEQ/L 102 MEQ/L Carbon Dioxide Level 29.4 MEQ/L 29.0 MEQ/L 29.1 MEQ/L Anion Gap 11 MEQ/L 9 MEQ/L 7 MEQ/L Estimat Glomerular Filtration Rate 22 ML/MIN 23 ML/MIN 24 ML/MIN Imaging Last Impressions Chest X-Ray 12/26/16 0000 Signed Impressions: Service Date/Time: Monday, December 26, 2016 11:56 - CONCLUSION: 1. Tracheostomy tube in good position 4 cm above the sajan. 2. Bibasilar patchiness consistent with atelectasis and/or pneumonia. 3. Cardiomegaly. Mustapha Morales MD Abdomen X-Ray 12/26/16 0000 Signed Impressions: Service Date/Time: Monday, December 26, 2016 21:33 - CONCLUSION: Nasogastric tube tip is at the gastric outlet. Nirav Savage MD Liver Ultrasound 12/16/16 0000 Signed Impressions: Service Date/Time: Friday, December 16, 2016 15:25 - CONCLUSION: 1. The liver is prominent with no focal lesion or ascites. 2. The right kidney is small and atrophic in appearance with cortical thinning and no hydronephrosis. There is increased echogenicity most characteristic of medical renal disease. Dylan Bryant MD Renal Ultrasound 12/14/16 0000 Signed Impressions: Service Date/Time: Wednesday, December 14, 2016 18:21 - CONCLUSION: Medical renal disease with echogenic kidneys. There is some atrophy of the right kidney. Nirav Camacho MD Head CT 12/14/16 0000 Signed Impressions: Service Date/Time: Wednesday, December 14, 2016 17:38 - CONCLUSION: Negative for an acute process. Sander Resendiz MD FACR Objective Remarks GENERAL: 60-year-old female on ventilator via trach SKIN: Warm and dry. No rash. Poor skin turgor. HEAD: Atraumatic. Normocephalic. EYES: Pupils equal and round about 3 mm bilaterally and reactive. No scleral icterus. No injection or drainage. ENT: No nasal bleeding or discharge. Mucous membranes pink and moist. Orotracheally intubated NECK: Trachea midline. JVD unable to assess due to obesity. RIJ vascath site without hematoma. Trach site C/D/I CARDIOVASCULAR: Regular rate and rhythm. RESPIRATORY: Diminished breath sounds throughout. Mild bilateral wheezing GASTROINTESTINAL: Abdomen soft, non-tender, protuberant. MUSCULOSKELETAL: Extremities without significant peripheral edema. No obvious deformities. NEUROLOGICAL: Intubated, A/P Assessment and Plan Neuro/Psych: Toxic metabolic Encephalopathy - likely metabolic/CO2 retention Restless leg syndrome Diabetic neuropathy Off sedation monitor neuro status. CT brain 12/14 revealed no acute intracranial findings Acetaminophen for fever, Holding gabapentin 300 mg 3 times a day in light of altered mental status CV: Hypertension History of hypertension History dyslipidemia Monitor HR and BP keep MAP >65mmHg Continue hydralazine 100 3 times a day, Isordil mill grams 3 times a day. Procardia 40mg every 8 hours, clonidine 0.3 milligram TID. Labetalol 200mg po q8hr. Breakthrough labetalol and hydralazine iv. (Home medications include lisinopril 5 mill grams daily, metoprolol 50 mill grams twice a day, clonidine 0.1 mg 3 times a day, nifedipine 60 mill grams every 12 hours, Imdur 30 mg daily and hydralazine 100 mg 3 times daily.) Echocardiogram 2015 EF 55-60%. No regional wall motion abnormality. LEXIE- 61 mmHg. Mild MR. Echocardiogram 12/14/16 - EF 65-70%. No regional wall motion abnormality. Hyperdynamic state Resp: Acute hypoxemic respiratory failure Severe COPD/O2 dependent, with acute exacerbation HERACLIO/no CPAP at home Probable community-acquired pneumonia s/p Trach 12/26 Ventilator bundle, Budesonide 0.5 mg/2 mL one inhalation twice a day CPAP/TP's trials as freddy. Check CXR Methylprednisolone 40 mg IV daily At home Anoro Ellipta 62.5/25 one inhalation daily and Symbicort 160/4.5 2 puffs every 12 hours with as needed albuterol Pulm Dr. Bateman GI: Elevated transaminases- resolved s/p PEG tube placement 12/27 On tube feeds (Nepro)@40ml/hr Docusate sodium/Senokot for bowel regimen. MiraLAX and lactulose Avoid hepatotoxic medications. Trending downward. CPK and hepatitis panel - negative Endo: Diabetes mellitus with neuropathy Hyperglycemia At home on insulin detemir 10 units twice a day with sliding scale insulin. on sliding scale insulin with Accu-Cheks every 4hours to maintain euglycemia/ high regimen NovoLog Levemir 10u BID Renal: Acute kidney injury in the setting of Chronic kidney disease stage 4 - AIN versus medication requiring renal replacement Monitor renal function, I/O's, avoid nephrotoxins. Cr:2.06 today with UOP:500ml in 24 hrs HD per renal-Dr. Blackmon s/p HD 12/27 with removal 3.2L Urine eosinophils - 0-2 and electrolytes FeNa 0.4 Renal ultrasound 12/14 indicative of medical renal disease with atrophied right kidney Continue Phoslo and Ca carbonate Heme: Normocytic anemia Monitor CBC ID: Probable community-acquired pneumonia UTI Urine cx 12/27: C. Albicans. Diflucan 100mg daily x 7 days s/p full course of abx(Zosyn and Levaquin). UA negative/, sputum neg to date. Blood cultures 12/14 and 12/15 negative to date. Negative urine pneumococcal and Legionella antigens Monitor for signs of infections ( Fever, WBC) Access Left IJ CVL 12/14-12/20 RIRick Vascat 12/20 Prophylaxis - GI -famotidine - DVT - SCD/heparin subcutaneous Level 3 Cam Elkins MD Dec 30, 2016 08:06
[2016-12-30] MEDS: RESP: BUDESONIDE 0.5 MG/2 ML NEB NEB SCH ×2 (08:28→20:33)
[2016-12-30] MEDS: JUVEN POWDER 1 PACK G-TUBE SCH ×2 (09:00→21:00)
[2016-12-30] MEDS: POLYETHYLENE GLYCOL 17 GM PKG OG-TUBE SCH ×2 (09:00→21:00)
[2016-12-30] MEDS: LACTULOSE SYRUP 20 GM/30 ML CUP OG-TUBE SCH ×2 (09:00→21:00)
[2016-12-30] MEDS: UMECLIDINIUM 62.5 MCG/VILANTEROL 25 MCG INHALER INH SCH (09:00)
[2016-12-30] MEDS: SODIUM CHLORIDE 0.9% FLUSH 10 ML FLUSH IVF SCH (09:00)
[2016-12-30] MEDS: ARTIFICIAL TEARS OPTH SOLN 15 ML BTL EACH EYE SCH ×3 (09:00→16:30)
[2016-12-30] MEDS: DOCUSATE SODIUM 50 MG/SENNA 8.6 MG TAB PO SCH ×2 (09:00→21:00)
[2016-12-30] MEDS: CALCITRIOL 0.25 MCG CAP NG SCH (09:00)
[2016-12-30] MEDS: ARTIFICIAL TEARS OPTH OINT 3.5 APPLIC/3.5 GM TUBO EACH EYE SCH ×2 (09:00→23:38)
--- NOTE | 2016-12-30 09:05 | RADRPT ---
EXAM DATE/TIME: 12/30/2016 08:20 [place] COMPARISON: CHEST SINGLE AP, December 26, 2016, 11:56. INDICATIONS : Respiratory failure MEDICAL HISTORY : Chronic obstructive pulmonary disease. Renal insufficiency, SURGICAL HISTORY : Tracheostomy, Hysterectomy. Tonsillectomy. Fusion, lumbar ENCOUNTER: Subsequent ACUITY: 3 weeks PAIN SCORE: Non-responsive. LOCATION: chest FINDINGS: There is a tracheostomy tube in good position. The heart size is mildly enlarged. The lungs are gross ly clear. No effusion is seen. CONCLUSION: No acute disease. Nirav Camacho MD on December 30, 2016 at 9:03 Board Certified Radiologist. This report was verified electronically.
[2016-12-30] MEDS: CALCIUM CARBONATE 1.25 GM (CA 500 MG) TAB PO SCH ×2 (09:15→23:36)
[2016-12-30] MEDS: FLUCONAZOLE 100 MG TAB PO SCH (09:15)
[2016-12-30] MEDS: INSULIN DETEMIR 100 UNITS/ML VIAL SQ SCH ×2 (09:15→23:34)
[2016-12-30] MEDS: FAMOTIDINE 20 MG/2 ML VIAL IV PUSH SCH ×2 (09:15→23:35)
[2016-12-30] MEDS: methylPREDNISolone SOD SUCC 40 MG/1 ML VIAL IV PUSH SCH (09:15)
[2016-12-30] MEDS: CHOLECALCIFEROL (VIT D3) 1000 UNIT TAB NG SCH (09:15)
[2016-12-30] MEDS: SODIUM CHLORIDE 0.9% FLUSH 10 ML FLUSH IV FLUSH SCH ×2 (09:16→23:38)
[2016-12-30] MEDS: CHLORHEXIDINE 0.12% (ORAL KIT) 15 ML CUP MT SCH ×2 (09:17→20:00)
--- NOTE | 2016-12-30 11:38 | HHI.NPPN ---
Subjective Renal Failure: Chronic, Acute Interval History remains on the ventilator. She is conscious, understands conversation. Stable, renal function is improving. Review of Systems General General Remarks generalized pain Objective Data Data Vital Signs Date Time Temp Pulse Resp B/P (MAP) Pulse Ox O2 Delivery O2 Flow Rate FiO2 12/30/16 08:29 94 40 12/30/16 06:00 69 12/30/16 04:19 100 40 12/30/16 04:00 98.2 69 22 158/70 (99) 96 12/30/16 04:00 65 12/30/16 04:00 40 12/30/16 02:00 68 12/30/16 01:27 94 40 12/30/16 00:00 64 12/30/16 00:00 98.9 75 25 162/77 (105) 96 12/30/16 00:00 40 12/29/16 22:45 40 12/29/16 22:40 96 40 12/29/16 21:00 40 12/29/16 20:15 98 40 12/29/16 20:15 40 12/29/16 20:00 78 12/29/16 20:00 98.6 75 34 165/74 (104) 99 12/29/16 20:00 50 12/29/16 18:00 79 12/29/16 16:00 99.5 83 18 140/68 (92) 98 12/29/16 16:00 83 12/29/16 14:00 T-piece 10.00 50 12/29/16 14:00 75 12/29/16 12:00 40 12/29/16 12:00 99.6 78 21 159/78 (105) 100 12/29/16 12:00 78 12/29/16 11:44 97 40 -: 12/30/16 0411 12/30/16 0411 Tubes & Lines: Vas-Cath, Bonilla Tubes & Lines Comment TLC left IJ Drip Comment fentanyl Physical Exam General Appearance: Well Developed, No Acute Distress, Comfortable, Obese Eyes Eye Exam: Pupils Equal Throat Throat Exam: Oral Mucosa [place] & Moist Neck Neck Exam: Neck Supple Pulmonary Resp Exam: Breath Sounds Equal, No Distress, Rhonchi, Decreased Bases, Diminished Breath Sounds Cardiology CV Exam: Regular, Normal Sinus Rhythm Gastrointestinal/Abdomen GI Exam: Soft, Non-Tender, Bowel Sounds Present Musculoskeletal MS Exam: Joints Intact, Normal Tone, Unable to Ambulate Integumentary Skin Exam: Warm, Dry Extremeties Extremities Exam: Pedal Pulses Palpable, Pitting Edema, Dependent Edema Neurologic Neuro Exam: Alert, Awake, Moving All Extremities VTE Prophylaxis Device: SCDs Assessment/Plan Assessment Summary: KAILEE/Acute Renal Failure, Acute Tubular Necrosis, Fluid/ Volume Overload, Hypertension, Diabetes Mellitus Electrolyte Assessment: Hypocalcemia Problem List: (1) Acute renal failure ICD Codes: N17.9 - Acute kidney failure, unspecified Status: Acute Plan: 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 HD initiated on the . She is non oliguric with Bonilla catheter Monitor urine output Renal function is stable, better, no need for dialysis today. She is on steroids which may be contributing to high BUN. Prednisone is being tapered down. Avoid nephrotoxic agents. Monitor urine output, electrolytes and renal function. Remove Vascath tomorrow if renal function is stable. (2) HCAP (healthcare-associated pneumonia) ICD Codes: J18.9 - Healthcare-associated pneumonia Status: Acute Plan: On solumedrol, she is off antibiotics. Monitor clinically (3) Acute respiratory failure ICD Codes: J96.00 - Acute respiratory failure Status: Acute Plan: Continue Ventilator support. S/p tracheostomy 12/26 Tolerating CPAP trials s/p PEG (4) DM (diabetes mellitus) ICD Codes: E11.9 - Type 2 diabetes mellitus without complications Status: Chronic Plan: continue insulin therapy goal 140-180 mg/dL (5) Hypocalcemia ICD Codes: E83.51 - Hypocalcemia Plan: PTH is high. She has secondary hyperparathyroidism Hypocalcemia persists. She is on Vitamin D3 and calcitriol Phosphorus is in normal range. Stop PhosLo and monitor response. Problem Qualifiers (1) Acute renal failure: Qualified Codes: N17.9 - Acute kidney failure, unspecified (2) Acute respiratory failure: Qualified Codes: J96.01 - Acute respiratory failure with hypoxia; J96.02 - Acute respiratory failure with hypercapnia (3) DM (diabetes mellitus): Qualified Codes: E13.9 - Other specified diabetes mellitus without complications Thomas Blackmon MD Dec 30, 2016 11:38
[2016-12-31] VITALS (19 sets, daily range): BP systolic 127–181; BP diastolic 58–84; PULSE 55–81; RESP 24–30; TEMP 98.1–98.5; O2SAT 35–99
[2016-12-31] MEDS: INSULIN ASPART SUPPLEMENTAL SCALE SQ SCH ×2 (04:00)
[2016-12-31 05:43] LABS: AUTOMATED NEUTROPHIL # 5.4 TH/MM3 (1.8-7.7); BASOPHIL % 0.1 % (0.0-2.0); EOSINOPHIL % 0.3 % (0.0-4.0); HEMATOCRIT 25.2 % (35.0-46.0); HEMO FLAGS DIFF FINAL; LYMPH % 6.5 % (9.0-44.0); LYMPHOCYTE # 0.4 TH/MM3 (1.0-4.8); MEAN CELL VOLUME 90.1 FL (80.0-100.0); MEAN CORPUSCULAR HEMOGLOBIN 30.9 PG (27.0-34.0); MEAN CORPUSCULAR HGB CONC 34.3 % (32.0-36.0); MONO % 3.7 % (0.0-8.0); NEUT % 89.4 % (16.0-70.0); PLATELET COUNT 180 TH/MM3 (150-450); RED CELL DISTRIBUTION WIDTH 14.9 % (11.6-17.2); WHITE BLOOD COUNT 6.1 TH/MM3 (4.0-11.0)
[2016-12-31] MEDS: NIFEdipine 20 MG CAP PO SCH ×3 (06:00→20:51)
[2016-12-31 06:02] LABS: BICARBONATE 30.4 MEQ/L (21.0-32.0); POTASSIUM 4.1 MEQ/L (3.5-5.1)
[2016-12-31] MEDS: ISOSORBIDE DINITRATE 10 MG TAB PO SCH ×3 (06:45→20:51)
[2016-12-31] MEDS: hydrALAZINE HCL 100 MG TAB PO SCH ×3 (06:45→20:50)
[2016-12-31] MEDS: cloNIDine HCL 0.3 MG TAB PO SCH ×3 (06:45→20:51)
[2016-12-31] MEDS: HEPARIN SODIUM - SQ 10,000 UNITS/ML VIAL SQ SCH ×2 (06:45→17:00)
[2016-12-31] MEDS: LABETALOL HCL 200 MG TAB PO SCH ×3 (06:45→20:51)
[2016-12-31] MEDS: RESP: BUDESONIDE 0.5 MG/2 ML NEB NEB SCH ×2 (07:39→20:42)
[2016-12-31] MEDS: RESP: ALBUTEROL 2.5 MG/IPRATROPIUM 0.5 MG NEB (SCH) INH ×4 (07:39→20:42)
[2016-12-31] MEDS: CHLORHEXIDINE 0.12% (ORAL KIT) 15 ML CUP MT SCH ×2 (08:00→20:00)
--- NOTE | 2016-12-31 08:47 | HHI.CCPN ---
Subjective Remarks/Hospital Course 61-year-old female. Date of admission 12/14/2016. Past records includes COPD/oxygen dependent, obstructive sleep apnea not using nocturnal CPAP , hypertension, morbid obesity. Hypertension, chronic kidney disease stage IV. She presents to [facility] 2 day history of shortness of breath. She is essentially in extremis 100 hour troponin emergency report. She is immediately placed on BiPAP however failed and was emergently endotracheally intubated. She required 100% FiO2 and was intermittently hypotensive the ED. CT head negative. Chest x-ray revealed possible vascular congestion. She is also noted of a calcium of 5.0. Elevated creatinine 5.1 with a baseline 1.9. she received 2 g calcium chloride and she received 20 mg IV Lasix. Crab Butcher discontinued IV fluids and starting Bumex at 2 mg IV twice a day. 2-D echocardiogram revealed hyperdynamic state with EF of 65-70%. 12/15: - Afebrile. Off all vasopressors. 700 cc urine overnight. She is responding to fluids. Currently on midazolam drip. We'll attempt sedation vacation today if FiO2 decreased to around 50%. 12/16: Afebrile. Off all vasopressors. 1300 cc urine output past 24 hours. Nonoliguric. Currently on Versed and fentanyl drips. Moving all 4 extremities spontaneous. Will briefly attempt sedation vacation day but resedate BRIANA. 12/17: Patient had to be neuromuscularly paralyzed due to high peak pressures and hypoventilation. Started on Bumex drip overnight. Currently on 70% fio2, 10 PEEP , due to severe hypoxia. BUN/Creat 108/5, but urine output is adequate on Bumex drip-Nephrology wants to wait 24 hours prior to HD. Chest exam reveals severe bilateral expiratory wheezing 12/18: Patient remains critically severely hypoxemic. Good response to Bumex gtt. 5.1 L urine output in 24 hours. BUN/creatinine trending down 99/4. Potassium being replaced. Continue to wean FiO2 as tolerated remains on 55% with 12 of PEEP. I will discontinue neuromuscular blockade today 12/19: Remains critically ill but stable. FiO2 remains at 50%, PEEP just earliest 8. Urine output more than 2 L on Bumex infusion but BUN is increased to 111 creatinine stable at 4. Discussed with nephrology DC Bumex infusion and start scheduled Bumex 1 mg every 8 hours 12/20: Requiring high FiO2 at 60% without improvement remains critically ill. Worsening BUN/creatinine today 136/4.6. Urine output 1 L in 24 hours. We'll start hemodialysis today after placing Vas-Cath. Patient not tolerating sedation vacation due to ventilator synchrony 12/21: Requiring heavy sedation for vent synchrony. FiO2 down to 40%, PEEP 8. HD started yesterday, repeat today. Creatinine slightly improved with dialysis 12/22: remaining encephalopathic. hypoxia somewhat improved. severely hypertensive despite medications. KAILEE persists on HD. volume overloaded. remaining critically ill with multiple organ systems involved and off pathway. 12/23: no significant improvements. HD yesterday with 2L net negative. encephalopathy persists. off versed. weaning propofol. failing SBT. Cr still elevated. still severely oliguric. Subjective 12/24: Despite negative fluid balance, still very critically ill, encephalopathic , and unable to tolerate SBT. Will likely require tracheostomy. 12/25: Patient remains critically ill encephalopathy. Intermittently but not consistently follows commands, appears very lethargic. BUN elevated to 138 today creatinine remained stable, patient is oliguric. Plan for HD today. I discussed with patient's daughter. Chance of successful extubation is slim, will proceed with tracheostomy tentatively planned for 12/26/1612/26: Patient is awake, but lethargic. With HD yesterday BUN improved to 98 from 138. Today Diffuse bilateral wheezing on exam. Chance of successful extubation minimal, vent day 13. Proceed with trach today. D/W pulmonology Dr. Oswald and he agrees with the plane. Daughter has consented and I have explained plan to patient who is also agreeable 12/27: Patient had tracheostomy placed yesterday. Tolerated procedure well. More awake and following commands. BUN has increased today to 105 creatinine 2.3. Nephrology planning on hemodialysis today. UO 2.2 L in 24 hours 12/28 Patient s/p PEG tube placement yesterday. On Ventilator via trach on Fentanyl infusion for sedation. Afebrile. Tolerated CPAP x 6 hrs yesterday. 12/29 No events overnight. Sedated with Fentanyl and on ventilator via trach. Tolerated CPAP all day yesterday. Afebrile. 12/30 Patient is off sedation tolerated TP 's with 50% FIO2 yesterday for several hrs kept ON CPAP overnight with PS 12, PEEP:8 and FIO2 40%. Afebrile. 12/31 No events overnight. Tolerated TP's for all day yesterday Objective Vital Signs Date Time Temp Pulse Resp B/P (MAP) Pulse Ox O2 Delivery O2 Flow Rate FiO2 12/31/16 07:36 35 35 12/31/16 06:00 81 12/31/16 04:00 98.2 28 151/74 (99) 12/30/16 20:33 Trach Collar 6.00 Intake and Output 12/31/16 12/31/16 01/01/17 08:00 16:00 00:00 Intake Total 427 ml Output Total 500 ml Balance -73 ml Result Diagram: 12/31/16 0500 12/31/16 0500 Other Results Laboratory Tests Test 12/31/16 05:00 White Blood Count 6.1 TH/MM3 Red Blood Count 2.80 MIL/MM3 Hemoglobin 8.7 GM/DL Hematocrit 25.2 % Mean Corpuscular Volume 90.1 FL Mean Corpuscular Hemoglobin 30.9 PG Mean Corpuscular Hemoglobin Concent 34.3 % Red Cell Distribution Width 14.9 % Platelet Count 180 TH/MM3 Mean Platelet Volume 7.9 FL Neutrophils (%) (Auto) 89.4 % Lymphocytes (%) (Auto) 6.5 % Monocytes (%) (Auto) 3.7 % Eosinophils (%) (Auto) 0.3 % Basophils (%) (Auto) 0.1 % Neutrophils # (Auto) 5.4 TH/MM3 Lymphocytes # (Auto) 0.4 TH/MM3 Monocytes # (Auto) 0.2 TH/MM3 Eosinophils # (Auto) 0.0 TH/MM3 Basophils # (Auto) 0.0 TH/MM3 CBC Comment DIFF FINAL Differential Comment Blood Urea Nitrogen 64 MG/DL Creatinine 1.83 MG/DL Random Glucose 121 MG/DL Calcium Level 9.0 MG/DL Sodium Level 139 MEQ/L Potassium Level 4.1 MEQ/L Chloride Level 101 MEQ/L Carbon Dioxide Level 30.4 MEQ/L Anion Gap 8 MEQ/L Estimat Glomerular Filtration Rate 28 ML/MIN Imaging Last Impressions Chest X-Ray 12/30/16 0000 Signed Impressions: Service Date/Time: Friday, December 30, 2016 08:20 - CONCLUSION: No acute disease. Nirav Camacho MD Abdomen X-Ray 12/26/16 0000 Signed Impressions: Service Date/Time: Monday, December 26, 2016 21:33 - CONCLUSION: Nasogastric tube tip is at the gastric outlet. Nirav Savage MD Liver Ultrasound 12/16/16 0000 Signed Impressions: Service Date/Time: Friday, December 16, 2016 15:25 - CONCLUSION: 1. The liver is prominent with no focal lesion or ascites. 2. The right kidney is small and atrophic in appearance with cortical thinning and no hydronephrosis. There is increased echogenicity most characteristic of medical renal disease. Dylan Bryant MD Renal Ultrasound 12/14/16 0000 Signed Impressions: Service Date/Time: Wednesday, December 14, 2016 18:21 - CONCLUSION: Medical renal disease with echogenic kidneys. There is some atrophy of the right kidney. Nirav Camacho MD Head CT 12/14/16 0000 Signed Impressions: Service Date/Time: Wednesday, December 14, 2016 17:38 - CONCLUSION: Negative for an acute process. Sander Resendiz MD FACR Objective Remarks GENERAL: 60-year-old female on ventilator via trach SKIN: Warm and dry. No rash. Poor skin turgor. HEAD: Atraumatic. Normocephalic. EYES: Pupils equal and round about 3 mm bilaterally and reactive. No scleral icterus. No injection or drainage. ENT: No nasal bleeding or discharge. Mucous membranes pink and moist. Orotracheally intubated NECK: Trachea midline. JVD unable to assess due to obesity. RIJ vascath site without hematoma. Trach site C/D/I CARDIOVASCULAR: Regular rate and rhythm. RESPIRATORY: Diminished breath sounds throughout. Mild bilateral wheezing GASTROINTESTINAL: Abdomen soft, non-tender, protuberant. MUSCULOSKELETAL: Extremities without significant peripheral edema. No obvious deformities. NEUROLOGICAL: Intubated, A/P Assessment and Plan Neuro/Psych: Toxic metabolic Encephalopathy - likely metabolic/CO2 retention Restless leg syndrome Diabetic neuropathy Off sedation monitor neuro status. Awake and alert CT brain 12/14 revealed no acute intracranial findings Acetaminophen for fever, Holding gabapentin 300 mg 3 times a day in light of altered mental status CV: Hypertension History of hypertension History dyslipidemia Monitor HR and BP keep MAP >65mmHg Continue hydralazine 100 3 times a day, Isordil mill grams 3 times a day. Procardia 40mg every 8 hours, clonidine 0.3 milligram TID. Labetalol 200mg po q8hr. Breakthrough labetalol and hydralazine iv. (Home medications include lisinopril 5 mill grams daily, metoprolol 50 mill grams twice a day, clonidine 0.1 mg 3 times a day, nifedipine 60 mill grams every 12 hours, Imdur 30 mg daily and hydralazine 100 mg 3 times daily.) Echocardiogram 2015 EF 55-60%. No regional wall motion abnormality. LEXIE- 61 mmHg. Mild MR. Echocardiogram 12/14/16 - EF 65-70%. No regional wall motion abnormality. Hyperdynamic state Resp: Acute hypoxemic respiratory failure Severe COPD/O2 dependent, with acute exacerbation HERACLIO/no CPAP at home Probable community-acquired pneumonia s/p Trach 12/26 Ventilator bundle, Budesonide 0.5 mg/2 mL one inhalation twice a day CPAP/TP's trials as freddy. Methylprednisolone 40 mg IV daily CXR 12/30: No acute disease At home Anoro Ellipta 62.5/25 one inhalation daily and Symbicort 160/4.5 2 puffs every 12 hours with as needed albuterol Pulm Dr. Bateman GI: Elevated transaminases- resolved s/p PEG tube placement 12/27 On tube feeds (Nepro)@40ml/hr Docusate sodium/Senokot for bowel regimen. MiraLAX and lactulose Avoid hepatotoxic medications. Trending downward. CPK and hepatitis panel - negative Endo: Diabetes mellitus with neuropathy Hyperglycemia SSI with accuchecks Hold Levemir 10u BID Renal: Acute kidney injury in the setting of Chronic kidney disease stage 4 - AIN versus medication requiring renal replacement Monitor renal function, I/O's, avoid nephrotoxins. Cr: 1.83 today from 2.06 today with UOP: 1600 ml in 24 hrs HD per renal-Dr. Blackmon s/p HD 12/27 with removal 3.2L Urine eosinophils - 0-2 and electrolytes FeNa 0.4 Renal ultrasound 12/14 indicative of medical renal disease with atrophied right kidney Continue Phoslo and Ca carbonate Heme: Normocytic anemia Monitor CBC ID: Probable community-acquired pneumonia UTI Urine cx 12/27: C. Albicans. Diflucan 100mg daily till 9/23 s/p full course of abx(Zosyn and Levaquin). UA negative/, sputum neg to date. Blood cultures 12/14 and 12/15 negative to date. Negative urine pneumococcal and Legionella antigens Monitor for signs of infections ( Fever, WBC) Access Left IJ CVL 12/14-12/20 RIJ Vascath 12/20, will d/c vascath per renal. Prophylaxis - GI -famotidine - DVT - SCD/heparin subcutaneous Level 3 Cam Elkins MD Dec 31, 2016 08:47
[2016-12-31] MEDS: CALCIUM CARBONATE 1.25 GM (CA 500 MG) TAB PO SCH ×2 (09:00→20:50)
[2016-12-31] MEDS ORDERED: DEXTROSE 50% IN WATER 50 ML VIAL(D50) IV PRN (09:00)
[2016-12-31] MEDS ORDERED: GLUCAGON 1 MG/ML VIAL OTHER PRN (09:00)
[2016-12-31] MEDS: SODIUM CHLORIDE 0.9% FLUSH 10 ML FLUSH IVF SCH (09:00)
[2016-12-31] MEDS: CALCITRIOL 0.25 MCG CAP NG SCH (09:00)
[2016-12-31] MEDS: ARTIFICIAL TEARS OPTH SOLN 15 ML BTL EACH EYE SCH ×3 (09:00→17:20)
[2016-12-31] MEDS: ARTIFICIAL TEARS OPTH OINT 3.5 APPLIC/3.5 GM TUBO EACH EYE SCH ×2 (09:00→20:50)
[2016-12-31] MEDS: UMECLIDINIUM 62.5 MCG/VILANTEROL 25 MCG INHALER INH SCH (09:00)
[2016-12-31] MEDS: DOCUSATE SODIUM 50 MG/SENNA 8.6 MG TAB PO SCH ×2 (09:00→20:51)
[2016-12-31] MEDS: CHOLECALCIFEROL (VIT D3) 1000 UNIT TAB NG SCH (09:34)
[2016-12-31] MEDS: FLUCONAZOLE 100 MG TAB PO SCH (09:34)
[2016-12-31] MEDS: methylPREDNISolone SOD SUCC 40 MG/1 ML VIAL IV PUSH SCH (09:34)
[2016-12-31] MEDS: FAMOTIDINE 20 MG/2 ML VIAL IV PUSH SCH ×2 (09:34→20:52)
[2016-12-31] MEDS: SODIUM CHLORIDE 0.9% FLUSH 10 ML FLUSH IV FLUSH SCH ×2 (09:35→20:52)
[2016-12-31] MEDS: INSULIN NovoLIN REGULAR SUPPLEMENTAL SCALE SQ SCH ×3 (09:39→20:53)
--- NOTE | 2016-12-31 11:13 | HHI.NPPN ---
Subjective Renal Failure: Chronic, Acute Interval History Renal function continues to improve. No need for dialysis. VasCath can be removed. Review of Systems General General Remarks generalized pain Objective Data Data Vital Signs Date Time Temp Pulse Resp B/P (MAP) Pulse Ox O2 Delivery O2 Flow Rate FiO2 12/31/16 09:34 95 Nasal Cannula 4.00 12/31/16 08:00 98.5 74 24 176/79 (111) 93 12/31/16 08:00 40 12/31/16 07:36 35 35 12/31/16 06:00 81 12/31/16 04:37 94 35 12/31/16 04:00 98.2 68 28 151/74 (99) 89 12/31/16 04:00 68 12/31/16 02:00 62 12/31/16 00:00 98.3 61 26 127/58 (81) 92 12/31/16 00:00 81 12/30/16 22:00 71 12/30/16 20:33 95 Trach Collar 6.00 40 12/30/16 20:00 68 12/30/16 20:00 97.9 68 35 100/60 (73) 94 12/30/16 18:00 67 12/30/16 16:00 69 12/30/16 16:00 98.0 69 23 163/74 (103) 96 12/30/16 14:00 80 12/30/16 12:09 96 40 12/30/16 12:00 59 12/30/16 12:00 98.6 59 19 179/84 (115) 96 -: 12/31/16 0500 12/31/16 0500 Tubes & Lines: Vas-Cath, Bonilla Tubes & Lines Comment TLC left IJ Drip Comment fentanyl Physical Exam General Appearance: Well Developed, No Acute Distress, Comfortable, Obese Eyes Eye Exam: Pupils Equal Throat Throat Exam: Oral Mucosa [place] & Moist Neck Neck Exam: Neck Supple Pulmonary Resp Exam: Breath Sounds Equal, No Distress, Rhonchi, Decreased Bases, Diminished Breath Sounds Cardiology CV Exam: Regular, Normal Sinus Rhythm Gastrointestinal/Abdomen GI Exam: Soft, Non-Tender, Bowel Sounds Present Musculoskeletal MS Exam: Joints Intact, Normal Tone, Unable to Ambulate Integumentary Skin Exam: Warm, Dry Extremeties Extremities Exam: Pedal Pulses Palpable, Pitting Edema, Dependent Edema Neurologic Neuro Exam: Alert, Awake, Moving All Extremities VTE Prophylaxis Device: SCDs Assessment/Plan Assessment Summary: KAILEE/Acute Renal Failure, Acute Tubular Necrosis, Fluid/ Volume Overload, Hypertension, Diabetes Mellitus Electrolyte Assessment: Hypocalcemia Problem List: (1) Acute renal failure ICD Codes: N17.9 - Acute kidney failure, unspecified Status: Acute Plan: 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 HD initiated on the . She is non oliguric . Monitor urine output Renal function is stable, better,GFR at baseline. She is on steroids which may be contributing to high BUN. Prednisone is being tapered down. Avoid nephrotoxic agents. Monitor urine output, electrolytes and renal function. Remove Vascath today. (2) HCAP (healthcare-associated pneumonia) ICD Codes: J18.9 - Healthcare-associated pneumonia Status: Acute Plan: On solumedrol, she is off antibiotics. Monitor clinically (3) Acute respiratory failure ICD Codes: J96.00 - Acute respiratory failure Status: Acute Plan: Continue Ventilator support. S/p tracheostomy 12/26 Tolerating CPAP trials s/p PEG (4) DM (diabetes mellitus) ICD Codes: E11.9 - Type 2 diabetes mellitus without complications Status: Chronic Plan: continue insulin therapy goal 140-180 mg/dL (5) Hypocalcemia ICD Codes: E83.51 - Hypocalcemia Plan: PTH is high. She has secondary hyperparathyroidism On Calcitriol and Vitamin D3. Hypocalcemia has improved. Problem Qualifiers (1) Acute renal failure: Qualified Codes: N17.9 - Acute kidney failure, unspecified (2) Acute respiratory failure: Qualified Codes: J96.01 - Acute respiratory failure with hypoxia; J96.02 - Acute respiratory failure with hypercapnia (3) DM (diabetes mellitus): Qualified Codes: E13.9 - Other specified diabetes mellitus without complications Thomas Blackmon MD Dec 31, 2016 11:13
[2016-12-31] MEDS: hydrALAZINE HCL 20 MG/ML VIAL IV PUSH PRN (11:27)
[2017-01-01] VITALS (20 sets, daily range): BP systolic 102–154; BP diastolic 55–79; PULSE 61–77; RESP 19–32; TEMP 97.9–98.5; O2SAT 93–99
[2017-01-01] MEDS: INSULIN NovoLIN REGULAR SUPPLEMENTAL SCALE SQ SCH ×4 (03:00→21:00)
[2017-01-01] MEDS: CHLORHEXIDINE GLUCONATE 2 % 1 PACK (2 CLOTHS) TOP SCH (04:00)
[2017-01-01] MEDS: LABETALOL HCL 200 MG TAB PO SCH ×3 (04:00→21:07)
[2017-01-01] MEDS: cloNIDine HCL 0.3 MG TAB PO SCH ×3 (04:54→21:06)
[2017-01-01] MEDS: NIFEdipine 20 MG CAP PO SCH ×3 (04:54→21:06)
[2017-01-01] MEDS: hydrALAZINE HCL 100 MG TAB PO SCH ×3 (04:54→21:07)
[2017-01-01] MEDS: ISOSORBIDE DINITRATE 10 MG TAB PO SCH ×3 (04:54→21:06)
[2017-01-01] MEDS: HEPARIN SODIUM - SQ 10,000 UNITS/ML VIAL SQ SCH ×2 (04:55→17:14)
[2017-01-01 06:38] LABS: AUTOMATED NEUTROPHIL # 5.4 TH/MM3 (1.8-7.7); BASOPHIL % 0.1 % (0.0-2.0); EOSINOPHIL % 0.5 % (0.0-4.0); HEMATOCRIT 23.1 % (35.0-46.0); HEMO FLAGS DIFF FINAL; LYMPH % 10.6 % (9.0-44.0); LYMPHOCYTE # 0.7 TH/MM3 (1.0-4.8); MEAN CELL VOLUME 90.2 FL (80.0-100.0); MEAN CORPUSCULAR HEMOGLOBIN 29.8 PG (27.0-34.0); MEAN CORPUSCULAR HGB CONC 33.1 % (32.0-36.0); MONO % 3.7 % (0.0-8.0); NEUT % 85.1 % (16.0-70.0); PLATELET COUNT 189 TH/MM3 (150-450); RED BLOOD COUNT 2.57 MIL/MM3 (4.00-5.30); RED CELL DISTRIBUTION WIDTH 15.2 % (11.6-17.2); WHITE BLOOD COUNT 6.3 TH/MM3 (4.0-11.0)
[2017-01-01 06:51] LABS: POTASSIUM 4.1 MEQ/L (3.5-5.1)
[2017-01-01] MEDS: RESP: BUDESONIDE 0.5 MG/2 ML NEB NEB SCH ×2 (07:31→20:40)
[2017-01-01] MEDS: RESP: ALBUTEROL 2.5 MG/IPRATROPIUM 0.5 MG NEB (SCH) INH ×4 (07:31→20:40)
[2017-01-01] MEDS: methylPREDNISolone SOD SUCC 40 MG/1 ML VIAL IV PUSH SCH (08:19)
[2017-01-01] MEDS: DOCUSATE SODIUM 50 MG/SENNA 8.6 MG TAB PO SCH ×2 (08:19→19:31)
[2017-01-01] MEDS: FLUCONAZOLE 100 MG TAB PO SCH (08:19)
[2017-01-01] MEDS: CHOLECALCIFEROL (VIT D3) 1000 UNIT TAB NG SCH (08:20)
[2017-01-01] MEDS: SODIUM CHLORIDE 0.9% FLUSH 10 ML FLUSH IVF SCH (08:20)
[2017-01-01] MEDS: CALCIUM CARBONATE 1.25 GM (CA 500 MG) TAB PO SCH ×2 (08:20→21:07)
[2017-01-01] MEDS: SODIUM CHLORIDE 0.9% FLUSH 10 ML FLUSH IV FLUSH SCH ×2 (08:20→21:10)
[2017-01-01] MEDS: FAMOTIDINE 20 MG/2 ML VIAL IV PUSH SCH ×2 (08:21→21:06)
[2017-01-01] MEDS: ARTIFICIAL TEARS OPTH OINT 3.5 APPLIC/3.5 GM TUBO EACH EYE SCH ×2 (08:21→21:08)
[2017-01-01] MEDS: CHLORHEXIDINE 0.12% (ORAL KIT) 15 ML CUP MT SCH ×2 (08:22→19:31)
[2017-01-01] MEDS: ARTIFICIAL TEARS OPTH SOLN 15 ML BTL EACH EYE SCH ×3 (08:22→17:14)
[2017-01-01] MEDS: UMECLIDINIUM 62.5 MCG/VILANTEROL 25 MCG INHALER INH SCH (09:00)
[2017-01-01] MEDS: CALCITRIOL 0.25 MCG CAP NG SCH (09:20)
--- NOTE | 2017-01-01 09:30 | HHI.CCPN ---
Subjective Remarks/Hospital Course 61-year-old female. Date of admission 12/14/2016. Past records includes COPD/oxygen dependent, obstructive sleep apnea not using nocturnal CPAP , hypertension, morbid obesity. Hypertension, chronic kidney disease stage IV. She presents to [facility] 2 day history of shortness of breath. She is essentially in extremis 100 hour troponin emergency report. She is immediately placed on BiPAP however failed and was emergently endotracheally intubated. She required 100% FiO2 and was intermittently hypotensive the ED. CT head negative. Chest x-ray revealed possible vascular congestion. She is also noted of a calcium of 5.0. Elevated creatinine 5.1 with a baseline 1.9. she received 2 g calcium chloride and she received 20 mg IV Lasix. Optical Mechanic discontinued IV fluids and starting Bumex at 2 mg IV twice a day. 2-D echocardiogram revealed hyperdynamic state with EF of 65-70%. 12/15: - Afebrile. Off all vasopressors. 700 cc urine overnight. She is responding to fluids. Currently on midazolam drip. We'll attempt sedation vacation today if FiO2 decreased to around 50%. 12/16: Afebrile. Off all vasopressors. 1300 cc urine output past 24 hours. Nonoliguric. Currently on Versed and fentanyl drips. Moving all 4 extremities spontaneous. Will briefly attempt sedation vacation day but resedate BRIANA. 12/17: Patient had to be neuromuscularly paralyzed due to high peak pressures and hypoventilation. Started on Bumex drip overnight. Currently on 70% fio2, 10 PEEP , due to severe hypoxia. BUN/Creat 108/5, but urine output is adequate on Bumex drip-Nephrology wants to wait 24 hours prior to HD. Chest exam reveals severe bilateral expiratory wheezing 12/18: Patient remains critically severely hypoxemic. Good response to Bumex gtt. 5.1 L urine output in 24 hours. BUN/creatinine trending down 99/4. Potassium being replaced. Continue to wean FiO2 as tolerated remains on 55% with 12 of PEEP. I will discontinue neuromuscular blockade today 12/19: Remains critically ill but stable. FiO2 remains at 50%, PEEP just earliest 8. Urine output more than 2 L on Bumex infusion but BUN is increased to 111 creatinine stable at 4. Discussed with nephrology DC Bumex infusion and start scheduled Bumex 1 mg every 8 hours 12/20: Requiring high FiO2 at 60% without improvement remains critically ill. Worsening BUN/creatinine today 136/4.6. Urine output 1 L in 24 hours. We'll start hemodialysis today after placing Vas-Cath. Patient not tolerating sedation vacation due to ventilator synchrony 12/21: Requiring heavy sedation for vent synchrony. FiO2 down to 40%, PEEP 8. HD started yesterday, repeat today. Creatinine slightly improved with dialysis 12/22: remaining encephalopathic. hypoxia somewhat improved. severely hypertensive despite medications. KAILEE persists on HD. volume overloaded. remaining critically ill with multiple organ systems involved and off pathway. 12/23: no significant improvements. HD yesterday with 2L net negative. encephalopathy persists. off versed. weaning propofol. failing SBT. Cr still elevated. still severely oliguric. Subjective 12/24: Despite negative fluid balance, still very critically ill, encephalopathic , and unable to tolerate SBT. Will likely require tracheostomy. 12/25: Patient remains critically ill encephalopathy. Intermittently but not consistently follows commands, appears very lethargic. BUN elevated to 138 today creatinine remained stable, patient is oliguric. Plan for HD today. I discussed with patient's daughter. Chance of successful extubation is slim, will proceed with tracheostomy tentatively planned for 12/26/1612/26: Patient is awake, but lethargic. With HD yesterday BUN improved to 98 from 138. Today Diffuse bilateral wheezing on exam. Chance of successful extubation minimal, vent day 13. Proceed with trach today. D/W pulmonology Dr. Oswald and he agrees with the plane. Daughter has consented and I have explained plan to patient who is also agreeable 12/27: Patient had tracheostomy placed yesterday. Tolerated procedure well. More awake and following commands. BUN has increased today to 105 creatinine 2.3. Nephrology planning on hemodialysis today. UO 2.2 L in 24 hours 12/28 Patient s/p PEG tube placement yesterday. On Ventilator via trach on Fentanyl infusion for sedation. Afebrile. Tolerated CPAP x 6 hrs yesterday. 12/29 No events overnight. Sedated with Fentanyl and on ventilator via trach. Tolerated CPAP all day yesterday. Afebrile. 12/30 Patient is off sedation tolerated TP 's with 50% FIO2 yesterday for several hrs kept ON CPAP overnight with PS 12, PEEP:8 and FIO2 40%. Afebrile. 12/31 No events overnight. Tolerated TP's for all day yesterday 01/01 Patient remains on ventilator via trach. On CPAP with PS 12, PEEP:5 and FIO2 35%. Afebrile. Objective Vital Signs Date Time Temp Pulse Resp B/P (MAP) Pulse Ox O2 Delivery O2 Flow Rate FiO2 01/01/17 08:00 61 01/01/17 08:00 35 01/01/17 08:00 97.9 28 140/71 (94) 94 12/31/16 20:30 Trach Collar 6.00 Intake and Output 01/01/17 01/01/17 01/02/17 08:00 16:00 00:00 Intake Total 640 ml Output Total 600 ml Balance 40 ml Result Diagram: 01/01/17 0554 01/01/17 0554 Other Results Laboratory Tests Test 01/01/17 05:54 White Blood Count 6.3 TH/MM3 Red Blood Count 2.57 MIL/MM3 Hemoglobin 7.7 GM/DL Hematocrit 23.1 % Mean Corpuscular Volume 90.2 FL Mean Corpuscular Hemoglobin 29.8 PG Mean Corpuscular Hemoglobin Concent 33.1 % Red Cell Distribution Width 15.2 % Platelet Count 189 TH/MM3 Mean Platelet Volume 7.9 FL Neutrophils (%) (Auto) 85.1 % Lymphocytes (%) (Auto) 10.6 % Monocytes (%) (Auto) 3.7 % Eosinophils (%) (Auto) 0.5 % Basophils (%) (Auto) 0.1 % Neutrophils # (Auto) 5.4 TH/MM3 Lymphocytes # (Auto) 0.7 TH/MM3 Monocytes # (Auto) 0.2 TH/MM3 Eosinophils # (Auto) 0.0 TH/MM3 Basophils # (Auto) 0.0 TH/MM3 CBC Comment DIFF FINAL Differential Comment Blood Urea Nitrogen 73 MG/DL Creatinine 1.88 MG/DL Random Glucose 182 MG/DL Calcium Level 9.0 MG/DL Sodium Level 137 MEQ/L Potassium Level 4.1 MEQ/L Chloride Level 101 MEQ/L Carbon Dioxide Level 29.0 MEQ/L Anion Gap 7 MEQ/L Estimat Glomerular Filtration Rate 27 ML/MIN Imaging Last Impressions Chest X-Ray 12/30/16 0000 Signed Impressions: Service Date/Time: Friday, December 30, 2016 08:20 - CONCLUSION: No acute disease. Nirav Camacho MD Abdomen X-Ray 12/26/16 0000 Signed Impressions: Service Date/Time: Monday, December 26, 2016 21:33 - CONCLUSION: Nasogastric tube tip is at the gastric outlet. Nirav Savage MD Liver Ultrasound 12/16/16 0000 Signed Impressions: Service Date/Time: Friday, December 16, 2016 15:25 - CONCLUSION: 1. The liver is prominent with no focal lesion or ascites. 2. The right kidney is small and atrophic in appearance with cortical thinning and no hydronephrosis. There is increased echogenicity most characteristic of medical renal disease. Dylan Bryant MD Renal Ultrasound 12/14/16 0000 Signed Impressions: Service Date/Time: Wednesday, December 14, 2016 18:21 - CONCLUSION: Medical renal disease with echogenic kidneys. There is some atrophy of the right kidney. Nirav Camacho MD Head CT 12/14/16 0000 Signed Impressions: Service Date/Time: Wednesday, December 14, 2016 17:38 - CONCLUSION: Negative for an acute process. Sander Resendiz MD FACR Objective Remarks GENERAL: 60-year-old female on ventilator via trach SKIN: Warm and dry. No rash. Poor skin turgor. HEAD: Atraumatic. Normocephalic. EYES: Pupils equal and round about 3 mm bilaterally and reactive. No scleral icterus. No injection or drainage. ENT: No nasal bleeding or discharge. Mucous membranes pink and moist. Orotracheally intubated NECK: Trachea midline. JVD unable to assess due to obesity. RIJ vascath site without hematoma. Trach site C/D/I CARDIOVASCULAR: Regular rate and rhythm. RESPIRATORY: Diminished breath sounds throughout. Mild bilateral wheezing GASTROINTESTINAL: Abdomen soft, non-tender, protuberant. MUSCULOSKELETAL: Extremities without significant peripheral edema. No obvious deformities. NEUROLOGICAL: Intubated, A/P Assessment and Plan Neuro/Psych: Toxic metabolic Encephalopathy - likely metabolic/CO2 retention Restless leg syndrome Diabetic neuropathy Off sedation monitor neuro status. Awake and alert CT brain 12/14 revealed no acute intracranial findings Acetaminophen for fever, Holding gabapentin 300 mg 3 times a day in light of altered mental status CV: Hypertension History of hypertension History dyslipidemia Monitor HR and BP keep MAP >65mmHg Continue hydralazine 100 3 times a day, Isordil mill grams 3 times a day. Procardia 40mg every 8 hours, clonidine 0.3 milligram TID. Labetalol 200mg po q8hr. Breakthrough labetalol and hydralazine iv. (Home medications include lisinopril 5 mill grams daily, metoprolol 50 mill grams twice a day, clonidine 0.1 mg 3 times a day, nifedipine 60 mill grams every 12 hours, Imdur 30 mg daily and hydralazine 100 mg 3 times daily.) Echocardiogram 2015 EF 55-60%. No regional wall motion abnormality. LEXIE- 61 mmHg. Mild MR. Echocardiogram 12/14/16 - EF 65-70%. No regional wall motion abnormality. Hyperdynamic state Resp: Acute hypoxemic respiratory failure Severe COPD/O2 dependent, with acute exacerbation HERACLIO/no CPAP at home Probable community-acquired pneumonia s/p Trach 12/26 Ventilator bundle, Budesonide 0.5 mg/2 mL one inhalation twice a day CPAP/TP's trials as freddy. Methylprednisolone 40 mg IV daily CXR 12/30: No acute disease At home Anoro Ellipta 62.5/25 one inhalation daily and Symbicort 160/4.5 2 puffs every 12 hours with as needed albuterol Pulm Dr. Bateman GI: Elevated transaminases- resolved s/p PEG tube placement 12/27 On tube feeds (Nepro)@40ml/hr Docusate sodium/Senokot for bowel regimen. MiraLAX and lactulose Avoid hepatotoxic medications. Trending downward. CPK and hepatitis panel - negative Endo: Diabetes mellitus with neuropathy Hyperglycemia SSI with accuchecks Renal: Acute kidney injury in the setting of Chronic kidney disease stage 4 - AIN versus medication requiring renal replacement Monitor renal function, I/O's, avoid nephrotoxins. Cr: 1.88 today with UOP: 1600 ml in 24 hrs Renal-Dr. Blackmon. Marco d/c yesterday per renal. Renal ultrasound 12/14 indicative of medical renal disease with atrophied right kidney Continue Phoslo and Ca carbonate Heme: Normocytic anemia Monitor CBC ID: Probable community-acquired pneumonia UTI Urine cx 12/27: C. Albicans. Diflucan 100mg daily till 01/05 s/p full course of abx(Zosyn and Levaquin). UA negative/, sputum neg to date. Blood cultures 12/14 and 12/15 negative to date. Negative urine pneumococcal and Legionella antigens Monitor for signs of infections ( Fever, WBC) Access Peripheral IV's Prophylaxis - GI -famotidine - DVT - SCD/heparin subcutaneous Level 3 Cam Elkins MD Jan 01, 2017 09:30
[2017-01-01] MEDS: ALPRAZolam 0.5 MG TAB PO PRN (15:01)
--- NOTE | 2017-01-01 16:16 | HHI.NPPN ---
Subjective Renal Failure: Chronic, Acute Interval History patient is off the ventilator. Overall stable. Non oliguric. Review of Systems General Constitutional: Fatigue General Remarks generalized pain Respiratory Lungs: Wheeze Objective Data Data Vital Signs Date Time Temp Pulse Resp B/P (MAP) Pulse Ox O2 Delivery O2 Flow Rate FiO2 01/01/17 16:04 98.0 68 32 102/55 (71) 94 01/01/17 16:04 68 01/01/17 14:00 73 01/01/17 12:09 98.0 77 30 120/79 (93) 95 01/01/17 12:08 77 01/01/17 10:20 93 Trach Collar 6.00 40 01/01/17 10:00 61 01/01/17 09:30 95 Nasal Cannula 4.00 01/01/17 08:00 61 01/01/17 08:00 35 01/01/17 08:00 97.9 61 28 140/71 (94) 94 01/01/17 07:53 95 35 01/01/17 06:00 68 01/01/17 04:20 94 35 01/01/17 04:00 35 01/01/17 04:00 98.1 61 26 154/72 (99) 94 01/01/17 04:00 61 01/01/17 02:00 63 01/01/17 00:20 99 35 01/01/17 00:00 98.1 64 19 116/59 (78) 97 01/01/17 00:00 64 01/01/17 00:00 35 12/31/16 23:35 35 12/31/16 22:30 97 35 12/31/16 22:00 66 12/31/16 20:30 98 Trach Collar 6.00 35 12/31/16 20:00 98.2 69 26 149/72 (97) 99 12/31/16 20:00 69 12/31/16 18:00 75 -: 01/01/17 0554 01/01/17 0554 Tubes & Lines: Vas-Cath, Bonilla Tubes & Lines Comment TLC left IJ Drip Comment fentanyl Physical Exam General Appearance: Well Developed, No Acute Distress, Comfortable, Obese Eyes Eye Exam: Pupils Equal Throat Throat Exam: Oral Mucosa [place] & Moist Neck Neck Exam: Neck Supple Pulmonary Resp Exam: Breath Sounds Equal, No Distress, Diminished Breath Sounds Cardiology CV Exam: Regular, Normal Sinus Rhythm Gastrointestinal/Abdomen GI Exam: Soft, Non-Tender, Bowel Sounds Present Musculoskeletal MS Exam: Joints Intact, Normal Tone, Unable to Ambulate Integumentary Skin Exam: Warm, Dry Extremeties Extremities Exam: Pedal Pulses Palpable, Pitting Edema, Dependent Edema Neurologic Neuro Exam: Alert, Awake, Moving All Extremities VTE Prophylaxis Device: SCDs Assessment/Plan Assessment Summary: KAILEE/Acute Renal Failure, Acute Tubular Necrosis, Fluid/ Volume Overload, Hypertension, Diabetes Mellitus Electrolyte Assessment: Hypocalcemia Problem List: (1) Acute renal failure ICD Codes: N17.9 - Acute kidney failure, unspecified Status: Acute Plan: baseline CKD 3-4, creatinine 1.8 KAILEE due to ATN HD initiated on the . Dialysis support no longer needed, Vascath removed on . Monitor urine output Renal function is stable, better,GFR at baseline. She is on steroids which may be contributing to high BUN. Please continue taper down Prednisone as tolerated. Avoid nephrotoxic agents. (2) HCAP (healthcare-associated pneumonia) ICD Codes: J18.9 - Healthcare-associated pneumonia Status: Acute Plan: On solumedrol, she is off antibiotics. Monitor clinically (3) Acute respiratory failure ICD Codes: J96.00 - Acute respiratory failure Status: Acute Plan: Continue Ventilator support. S/p tracheostomy 12/26 Tolerating CPAP trials s/p PEG (4) DM (diabetes mellitus) ICD Codes: E11.9 - Type 2 diabetes mellitus without complications Status: Chronic Plan: continue insulin therapy goal 140-180 mg/dL (5) Hypocalcemia ICD Codes: E83.51 - Hypocalcemia Plan: PTH is high. She has secondary hyperparathyroidism On Calcitriol and Vitamin D3. Hypocalcemia has improved. Problem Qualifiers (1) Acute renal failure: Qualified Codes: N17.9 - Acute kidney failure, unspecified (2) Acute respiratory failure: Qualified Codes: J96.01 - Acute respiratory failure with hypoxia; J96.02 - Acute respiratory failure with hypercapnia (3) DM (diabetes mellitus): Qualified Codes: E13.9 - Other specified diabetes mellitus without complications Thomas Blackmon MD Jan 01, 2017 16:16
[2017-01-01] MEDS ORDERED: RESP: ALBUTEROL 2.5 MG/3 ML NEB (SCH) ONE (19:46)
[2017-01-02] VITALS (19 sets, daily range): BP systolic 116–150; BP diastolic 59–78; PULSE 64–81; RESP 23–40; TEMP 98.4–99; O2SAT 92–99
[2017-01-02] MEDS: INSULIN NovoLIN REGULAR SUPPLEMENTAL SCALE SQ SCH ×4 (03:00→21:00)
[2017-01-02] MEDS: CHLORHEXIDINE GLUCONATE 2 % 1 PACK (2 CLOTHS) TOP SCH (04:00)
[2017-01-02] MEDS: cloNIDine HCL 0.3 MG TAB PO SCH ×3 (04:50→21:07)
[2017-01-02] MEDS: LABETALOL HCL 200 MG TAB PO SCH ×3 (04:50→21:07)
[2017-01-02] MEDS: hydrALAZINE HCL 100 MG TAB PO SCH ×3 (04:50→21:07)
[2017-01-02] MEDS: NIFEdipine 20 MG CAP PO SCH ×3 (04:50→21:11)
[2017-01-02] MEDS: HEPARIN SODIUM - SQ 10,000 UNITS/ML VIAL SQ SCH ×2 (04:50→17:25)
[2017-01-02] MEDS: ISOSORBIDE DINITRATE 10 MG TAB PO SCH ×3 (04:50→21:07)
[2017-01-02 06:53] LABS: POTASSIUM 4.2 MEQ/L (3.5-5.1)
[2017-01-02] MEDS: RESP: ALBUTEROL 2.5 MG/IPRATROPIUM 0.5 MG NEB (SCH) INH ×4 (07:41→20:17)
[2017-01-02] MEDS: RESP: BUDESONIDE 0.5 MG/2 ML NEB NEB SCH ×2 (07:41→20:16)
[2017-01-02] MEDS: CHLORHEXIDINE 0.12% (ORAL KIT) 15 ML CUP MT SCH ×2 (08:44→20:00)
[2017-01-02] MEDS: ARTIFICIAL TEARS OPTH OINT 3.5 APPLIC/3.5 GM TUBO EACH EYE SCH ×2 (08:44→21:07)
[2017-01-02] MEDS: ARTIFICIAL TEARS OPTH SOLN 15 ML BTL EACH EYE SCH ×3 (08:45→17:25)
[2017-01-02] MEDS: SODIUM CHLORIDE 0.9% FLUSH 10 ML FLUSH IV FLUSH SCH ×2 (08:45→21:07)
[2017-01-02] MEDS: UMECLIDINIUM 62.5 MCG/VILANTEROL 25 MCG INHALER INH SCH (08:45)
[2017-01-02] MEDS: CHOLECALCIFEROL (VIT D3) 1000 UNIT TAB NG SCH (08:46)
[2017-01-02] MEDS: SODIUM CHLORIDE 0.9% FLUSH 10 ML FLUSH IVF SCH (08:46)
[2017-01-02] MEDS: CALCITRIOL 0.25 MCG CAP NG SCH (08:46)
[2017-01-02] MEDS: CALCIUM CARBONATE 1.25 GM (CA 500 MG) TAB PO SCH ×2 (08:46→21:07)
[2017-01-02] MEDS: DOCUSATE SODIUM 50 MG/SENNA 8.6 MG TAB PO SCH ×2 (08:46→21:07)
[2017-01-02] MEDS: methylPREDNISolone SOD SUCC 40 MG/1 ML VIAL IV PUSH SCH (08:46)
[2017-01-02] MEDS: FLUCONAZOLE 100 MG TAB PO SCH (08:46)
[2017-01-02] MEDS: FAMOTIDINE 20 MG/2 ML VIAL IV PUSH SCH ×2 (08:47→21:07)
[2017-01-02] MEDS: RESP: ALBUTEROL 2.5 MG/3 ML NEB (PRN) INH (10:27)
--- NOTE | 2017-01-02 10:45 | HHI.NPPN ---
Subjective Renal Failure: Chronic, Acute Interval History Sitting up in a chair. Able to speak. Lung sounds improved. (Tootie Grant) Review of Systems General Constitutional: Fatigue General Remarks generalized pain (Tootie Grant) Respiratory Lungs: Wheeze (Tootie Grant) Objective Data Data Vital Signs Date Time Temp Pulse Resp B/P (MAP) Pulse Ox O2 Delivery O2 Flow Rate FiO2 01/02/17 09:15 96 Trach Collar 6.00 50 01/02/17 07:35 93 35 01/02/17 06:00 64 01/02/17 04:00 68 01/02/17 04:00 98.6 68 25 150/78 (102) 95 01/02/17 04:00 35 01/02/17 03:25 95 35 01/02/17 02:00 67 01/02/17 00:00 98.4 65 23 123/68 (86) 94 01/02/17 00:00 65 01/02/17 00:00 35 01/01/17 23:00 93 35 01/01/17 23:00 35 01/01/17 22:00 66 01/01/17 20:30 99 Trach Collar 8.00 40 01/01/17 20:00 76 01/01/17 20:00 98.5 76 24 131/67 (88) 98 01/01/17 18:01 69 01/01/17 16:04 98.0 68 32 102/55 (71) 94 01/01/17 16:04 68 01/01/17 14:00 73 01/01/17 12:09 98.0 77 30 120/79 (93) 95 01/01/17 12:08 77 (Tootie Grnat) -: 01/01/17 0554 01/02/17 0507 Tubes & Lines: Vas-Cath, Bonilla (Tootie Grant) Physical Exam General Appearance: Well Developed, No Acute Distress, Comfortable, Obese Appearance Remarks sitting up in chair, awake, speaking not on vent (Tootie Grant) Eyes Eye Exam: Pupils Equal (Tootie Grant) Throat Throat Exam: Oral Mucosa [place] & Moist Throat Remarks s/p trach placement (Tootie Grant) Neck Neck Exam: Neck Supple (Tootie Grant) Pulmonary Resp Exam: Breath Sounds Equal, No Distress, Diminished Breath Sounds (Tootie Grant) Cardiology CV Exam: Regular, Normal Sinus Rhythm (Tootie Grant) Gastrointestinal/Abdomen GI Exam: Soft, Non-Tender, Bowel Sounds Present GI Remarks + PEG, abdominal binder in place (Tootie Grant) Musculoskeletal MS Exam: Joints Intact, Normal Tone, Unable to Ambulate (Tootie Grant) Integumentary Skin Exam: Clear, Warm, Dry (Tootie Grant) Extremeties Extremities Exam: No Edema, Pedal Pulses Palpable (Tootie Grant) Neurologic Neuro Exam: Alert, Awake, Oriented, Speech Clear, Moving All Extremities (Tootie Grant) Psychiatric Psych Exam: Appropriate Responses (Tootie Grant) VTE Prophylaxis Device: SCDs (Tootie Grant) Assessment/Plan Discussed Condition With: Patient Assessment Summary: KAILEE/Acute Renal Failure, Acute Tubular Necrosis, Fluid/ Volume Overload, Hypertension, Diabetes Mellitus Electrolyte Assessment: Hypocalcemia Problem List: (1) Acute renal failure ICD Codes: N17.9 - Acute kidney failure, unspecified Status: Acute Plan: baseline CKD 3-4, creatinine 1.8 KAILEE due to ATN HD initiated on the . Last HD 12/31. Vascath was removed Renal function returned to baseline. Excellent urine output. She is on steroids which may be contributing to high BUN. Please continue taper down Prednisone as tolerated. Avoid nephrotoxic agents. (2) HCAP (healthcare-associated pneumonia) ICD Codes: J18.9 - Healthcare-associated pneumonia Status: Acute Plan: On solumedrol, she is off antibiotics. Monitor clinically (3) Acute respiratory failure ICD Codes: J96.00 - Acute respiratory failure Status: Acute Plan: . S/p tracheostomy 12/26 she is off the vent; has P Valve in place improving, monitor will need rehab after discharge (4) DM (diabetes mellitus) ICD Codes: E11.9 - Type 2 diabetes mellitus without complications Status: Chronic Plan: continue insulin therapy goal 140-180 mg/dL (5) Hypocalcemia ICD Codes: E83.51 - Hypocalcemia Plan: PTH is high due to secondary hyperparathyroidism On Calcitriol and Vitamin D3. Hypocalcemia has corrected (Tootie Grant) Plan patient was seen and examined. Agree with above assessment and plan. (Thomas Blackmon MD) Problem Qualifiers (1) Acute renal failure: Qualified Codes: N17.9 - Acute kidney failure, unspecified (2) Acute respiratory failure: Qualified Codes: J96.01 - Acute respiratory failure with hypoxia; J96.02 - Acute respiratory failure with hypercapnia (3) DM (diabetes mellitus): Qualified Codes: E13.9 - Other specified diabetes mellitus without complications Tootie Grant Jan 02, 2017 10:44 Thomas Blackmon MD Jan 04, 2017 14:32
[2017-01-02 11:12] LABS: AUTOMATED NEUTROPHIL # 3.8 TH/MM3 (1.8-7.7); BASOPHIL % 0.6 % (0.0-2.0); EOSINOPHIL # 0.1 TH/MM3 (0-0.4); EOSINOPHIL % 2.5 % (0.0-4.0); HEMATOCRIT 24.4 % (35.0-46.0); HEMO FLAGS DIFF FINAL; LYMPH % 9.7 % (9.0-44.0); LYMPHOCYTE # 0.4 TH/MM3 (1.0-4.8); MEAN CELL VOLUME 89.3 FL (80.0-100.0); MEAN CORPUSCULAR HEMOGLOBIN 29.1 PG (27.0-34.0); MEAN CORPUSCULAR HGB CONC 32.6 % (32.0-36.0); NEUT % 84.2 % (16.0-70.0); PLATELET COUNT 141 TH/MM3 (150-450); RED BLOOD COUNT 2.73 MIL/MM3 (4.00-5.30); RED CELL DISTRIBUTION WIDTH 15.6 % (11.6-17.2); WHITE BLOOD COUNT 4.5 TH/MM3 (4.0-11.0)
--- NOTE | 2017-01-02 13:01 | HHI.CCPN ---
Subjective Remarks/Hospital Course 61-year-old female. Date of admission 12/14/2016. Past records includes COPD/oxygen dependent, obstructive sleep apnea not using nocturnal CPAP , hypertension, morbid obesity. Hypertension, chronic kidney disease stage IV. She presents to [facility] 2 day history of shortness of breath. She is essentially in extremis 100 hour troponin emergency report. She is immediately placed on BiPAP however failed and was emergently endotracheally intubated. She required 100% FiO2 and was intermittently hypotensive the ED. CT head negative. Chest x-ray revealed possible vascular congestion. She is also noted of a calcium of 5.0. Elevated creatinine 5.1 with a baseline 1.9. she received 2 g calcium chloride and she received 20 mg IV Lasix. Vibration Engineer discontinued IV fluids and starting Bumex at 2 mg IV twice a day. 2-D echocardiogram revealed hyperdynamic state with EF of 65-70%. 12/15: - Afebrile. Off all vasopressors. 700 cc urine overnight. She is responding to fluids. Currently on midazolam drip. We'll attempt sedation vacation today if FiO2 decreased to around 50%. 12/16: Afebrile. Off all vasopressors. 1300 cc urine output past 24 hours. Nonoliguric. Currently on Versed and fentanyl drips. Moving all 4 extremities spontaneous. Will briefly attempt sedation vacation day but resedate BRIANA. 12/17: Patient had to be neuromuscularly paralyzed due to high peak pressures and hypoventilation. Started on Bumex drip overnight. Currently on 70% fio2, 10 PEEP , due to severe hypoxia. BUN/Creat 108/5, but urine output is adequate on Bumex drip-Nephrology wants to wait 24 hours prior to HD. Chest exam reveals severe bilateral expiratory wheezing 12/18: Patient remains critically severely hypoxemic. Good response to Bumex gtt. 5.1 L urine output in 24 hours. BUN/creatinine trending down 99/4. Potassium being replaced. Continue to wean FiO2 as tolerated remains on 55% with 12 of PEEP. I will discontinue neuromuscular blockade today 12/19: Remains critically ill but stable. FiO2 remains at 50%, PEEP just earliest 8. Urine output more than 2 L on Bumex infusion but BUN is increased to 111 creatinine stable at 4. Discussed with nephrology DC Bumex infusion and start scheduled Bumex 1 mg every 8 hours 12/20: Requiring high FiO2 at 60% without improvement remains critically ill. Worsening BUN/creatinine today 136/4.6. Urine output 1 L in 24 hours. We'll start hemodialysis today after placing Vas-Cath. Patient not tolerating sedation vacation due to ventilator synchrony 12/21: Requiring heavy sedation for vent synchrony. FiO2 down to 40%, PEEP 8. HD started yesterday, repeat today. Creatinine slightly improved with dialysis 12/22: remaining encephalopathic. hypoxia somewhat improved. severely hypertensive despite medications. KAILEE persists on HD. volume overloaded. remaining critically ill with multiple organ systems involved and off pathway. 12/23: no significant improvements. HD yesterday with 2L net negative. encephalopathy persists. off versed. weaning propofol. failing SBT. Cr still elevated. still severely oliguric. 12/24: Despite negative fluid balance, still very critically ill, encephalopathic , and unable to tolerate SBT. Will likely require tracheostomy. 12/25: Patient remains critically ill encephalopathy. Intermittently but not consistently follows commands, appears very lethargic. BUN elevated to 138 today creatinine remained stable, patient is oliguric. Plan for HD today. I discussed with patient's daughter. Chance of successful extubation is slim, will proceed with tracheostomy tentatively planned for 12/26/1612/26: Patient is awake, but lethargic. With HD yesterday BUN improved to 98 from 138. Today Diffuse bilateral wheezing on exam. Chance of successful extubation minimal, vent day 13. Proceed with trach today. D/W pulmonology Dr. Oswald and he agrees with the plane. Daughter has consented and I have explained plan to patient who is also agreeable 12/27: Patient had tracheostomy placed yesterday. Tolerated procedure well. More awake and following commands. BUN has increased today to 105 creatinine 2.3. Nephrology planning on hemodialysis today. UO 2.2 L in 24 hours 12/28 Patient s/p PEG tube placement yesterday. On Ventilator via trach on Fentanyl infusion for sedation. Afebrile. Tolerated CPAP x 6 hrs yesterday. 12/29 No events overnight. Sedated with Fentanyl and on ventilator via trach. Tolerated CPAP all day yesterday. Afebrile. 12/30 Patient is off sedation tolerated TP 's with 50% FIO2 yesterday for several hrs kept ON CPAP overnight with PS 12, PEEP:8 and FIO2 40%. Afebrile. 12/31 No events overnight. Tolerated TP's for all day yesterday 01/01 Patient remains on ventilator via trach. On CPAP with PS 12, PEEP:5 and FIO2 35%. Afebrile. 01/02 Today off ventilator, sitting up in stretcher chair. Talking with Passy- Flournoy valve. Mild respiratory distress with talking Objective Vital Signs Date Time Temp Pulse Resp B/P (MAP) Pulse Ox O2 Delivery O2 Flow Rate FiO2 01/02/17 12:00 79 01/02/17 09:15 96 Trach Collar 6.00 50 01/02/17 08:00 98.8 30 116/59 (78) Intake and Output 01/02/17 01/02/17 01/03/17 08:00 16:00 00:00 Intake Total 350 ml Output Total 675 ml Balance -325 ml Result Diagram: 01/02/17 1035 01/02/17 0507 Imaging Last Impressions Chest X-Ray 12/30/16 0000 Signed Impressions: Service Date/Time: Friday, December 30, 2016 08:20 - CONCLUSION: No acute disease. Nirav Camacho MD Abdomen X-Ray 12/26/16 0000 Signed Impressions: Service Date/Time: Monday, December 26, 2016 21:33 - CONCLUSION: Nasogastric tube tip is at the gastric outlet. Nirav Savage MD Liver Ultrasound 12/16/16 0000 Signed Impressions: Service Date/Time: Friday, December 16, 2016 15:25 - CONCLUSION: 1. The liver is prominent with no focal lesion or ascites. 2. The right kidney is small and atrophic in appearance with cortical thinning and no hydronephrosis. There is increased echogenicity most characteristic of medical renal disease. Dylan Bryant MD Renal Ultrasound 12/14/16 0000 Signed Impressions: Service Date/Time: Wednesday, December 14, 2016 18:21 - CONCLUSION: Medical renal disease with echogenic kidneys. There is some atrophy of the right kidney. Nirav Camacho MD Head CT 12/14/16 0000 Signed Impressions: Service Date/Time: Wednesday, December 14, 2016 17:38 - CONCLUSION: Negative for an acute process. Sander Resendiz MD FACR Objective Remarks GENERAL: 60-year-old female on trach collar SKIN: Warm and dry. No rash. Poor skin turgor. HEAD: Atraumatic. Normocephalic. EYES: Pupils equal and round about 3 mm bilaterally and reactive. No scleral icterus. No injection or drainage. ENT: No nasal bleeding or discharge. Mucous membranes pink and moist. NECK: Trachea midline. JVD unable to assess due to obesity. Trach site C/D/I CARDIOVASCULAR: Regular rate and rhythm. RESPIRATORY: Diminished breath sounds throughout. Mild bilateral wheezing GASTROINTESTINAL: Abdomen soft, non-tender, protuberant. MUSCULOSKELETAL: Extremities without significant peripheral edema. No obvious deformities. NEUROLOGICAL: Alert awake, sitting up in stretcher chair. Talking with the Passy-Flournoy valve. No focal deficits A/P Assessment and Plan Neuro/Psych: Toxic metabolic Encephalopathy - likely metabolic/CO2 retention, resolved Restless leg syndrome Diabetic neuropathy Off sedation monitor neuro status. Awake and alert CT brain 12/14 revealed no acute intracranial findings Acetaminophen for fever, Holding gabapentin 300 mg 3 times a day in light of altered mental status Resume gabapentin when clinically indicated CV: Hypertension History of hypertension History dyslipidemia Monitor HR and BP keep MAP >65mmHg Continue hydralazine 100 3 times a day, Isordil mill grams 3 times a day. Procardia 40mg every 8 hours, clonidine 0.3 milligram TID. Labetalol 200mg po q8hr. Breakthrough labetalol and hydralazine iv. (Home medications include lisinopril 5 mill grams daily, metoprolol 50 mill grams twice a day, clonidine 0.1 mg 3 times a day, nifedipine 60 mill grams every 12 hours, Imdur 30 mg daily and hydralazine 100 mg 3 times daily.) Echocardiogram 2015 EF 55-60%. No regional wall motion abnormality. LEXIE- 61 mmHg. Mild MR. Echocardiogram 12/14/16 - EF 65-70%. No regional wall motion abnormality. Hyperdynamic state Resp: Acute hypoxemic respiratory failure-resolved Severe COPD/O2 dependent, with acute exacerbation HERACLIO/no CPAP at home Probable community-acquired pneumonia s/p Trach 12/26. Tolerating trach collar talking with the Passy-Margaret valve Budesonide 0.5 mg/2 mL one inhalation twice a day Methylprednisolone 40 mg IV daily CXR 12/30: No acute disease At home Anoro Ellipta 62.5/25 one inhalation daily and Symbicort 160/4.5 2 puffs every 12 hours with as needed albuterol Pulm Dr. Bateman/[facility]: Elevated transaminases- resolved s/p PEG tube placement 12/27 On tube feeds (Nepro)@40ml/hr Docusate sodium/Senokot for bowel regimen. MiraLAX and lactulose Avoid hepatotoxic medications. Trending downward. CPK and hepatitis panel - negative Endo: Diabetes mellitus with neuropathy Hyperglycemia SSI with accuchecks Renal: Acute kidney injury in the setting of Chronic kidney disease stage 4 - AIN versus medication requiring MANAGER ENDOSCOPY Monitor renal function, I/O's, avoid nephrotoxins. Cr: 1.7 today with UOP: 1600 ml in 24 hrs Renal-Dr. Blackmon. Vascath d/c yesterday per renal. Renal ultrasound 12/14 indicative of medical renal disease with atrophied right kidney Continue Phoslo and Ca carbonate Heme: Normocytic anemia Monitor CBC ID: Probable community-acquired pneumonia UTI Urine cx 12/27: C. Albicans. Diflucan 100mg daily till 01/05. Change Bonilla if not already changed, if nephrology agrees okay to discontinue Bonilla s/p full course of abx(Zosyn and Levaquin). UA negative/, sputum neg to date. Blood cultures 12/14 and 12/15 negative to date. Negative urine pneumococcal and Legionella antigens Monitor for signs of infections ( Fever, WBC) Access Peripheral IV's Prophylaxis - GI -famotidine - DVT - SCD/heparin subcutaneous Level 3 Evaluate for LTAC placement Kathie Gastelum MD Jan 02, 2017 13:01
[2017-01-02] MEDS: ALPRAZolam 0.5 MG TAB PO PRN ×2 (13:26→21:07)
[2017-01-02] MEDS: ACETAMINOPHEN 325 MG TAB PO PRN (21:20)
[2017-01-02 21:53] LABS: BACTERIA, URINE RARE /hpf; BLOOD, URINE TRACE (NEG); COMMENT (UR) CATH-CULTURE IND; CULTURE IF INDICATED CATH CULTURE IND; GLUCOSE,URINE 150 mg/dL (NEG); KETONE, URINE NEG (NEG); NITRITE,URINE NEG (NEG); PH, URINE 8.5 (5.0-8.5); URINE COLOR LIGHT-YELLOW (YELLW/STRAW)
[2017-01-03] VITALS (17 sets, daily range): BP systolic 111–146; BP diastolic 57–70; PULSE 63–81; RESP 23–36; TEMP 98.3–98.6; O2SAT 91–100
[2017-01-03] MEDS: INSULIN NovoLIN REGULAR SUPPLEMENTAL SCALE SQ SCH ×4 (03:00→21:00)
[2017-01-03] MEDS: CHLORHEXIDINE GLUCONATE 2 % 1 PACK (2 CLOTHS) TOP SCH ×2 (03:51→22:43)
[2017-01-03] MEDS: HEPARIN SODIUM - SQ 10,000 UNITS/ML VIAL SQ SCH ×2 (05:19→15:48)
[2017-01-03] MEDS: NIFEdipine 20 MG CAP PO SCH ×3 (05:19→21:30)
[2017-01-03] MEDS: LABETALOL HCL 200 MG TAB PO SCH ×3 (05:19→21:31)
[2017-01-03] MEDS: cloNIDine HCL 0.3 MG TAB PO SCH ×3 (05:19→21:31)
[2017-01-03] MEDS: ISOSORBIDE DINITRATE 10 MG TAB PO SCH ×3 (05:19→21:31)
[2017-01-03] MEDS: hydrALAZINE HCL 100 MG TAB PO SCH ×3 (05:19→21:30)
[2017-01-03 05:53] LABS: BICARBONATE 30.4 MEQ/L (21.0-32.0); POTASSIUM 4.2 MEQ/L (3.5-5.1)
[2017-01-03] MEDS: RESP: ALBUTEROL 2.5 MG/IPRATROPIUM 0.5 MG NEB (SCH) INH ×4 (07:39→19:54)
[2017-01-03] MEDS: RESP: BUDESONIDE 0.5 MG/2 ML NEB NEB SCH ×2 (07:39→19:54)
[2017-01-03] MEDS ORDERED: EPOETIN ALFA 20,000 UNITS/ML VIAL SQ ONE (08:45)
[2017-01-03] MEDS: UMECLIDINIUM 62.5 MCG/VILANTEROL 25 MCG INHALER INH SCH (09:00)
[2017-01-03] MEDS: CHLORHEXIDINE 0.12% (ORAL KIT) 15 ML CUP MT SCH ×2 (09:21→20:00)
[2017-01-03] MEDS: ARTIFICIAL TEARS OPTH OINT 3.5 APPLIC/3.5 GM TUBO EACH EYE SCH (09:21)
[2017-01-03] MEDS: ARTIFICIAL TEARS OPTH SOLN 15 ML BTL EACH EYE SCH ×3 (09:22→18:00)
[2017-01-03] MEDS: SODIUM CHLORIDE 0.9% FLUSH 10 ML FLUSH IV FLUSH SCH ×2 (09:22→21:00)
[2017-01-03] MEDS: SODIUM CHLORIDE 0.9% FLUSH 10 ML FLUSH IVF SCH (09:23)
[2017-01-03] MEDS: methylPREDNISolone SOD SUCC 40 MG/1 ML VIAL IV PUSH SCH (09:24)
[2017-01-03] MEDS: FAMOTIDINE 20 MG/2 ML VIAL IV PUSH SCH (09:24)
[2017-01-03] MEDS: CHOLECALCIFEROL (VIT D3) 1000 UNIT TAB NG SCH (09:25)
[2017-01-03] MEDS: DOCUSATE SODIUM 50 MG/SENNA 8.6 MG TAB PO SCH (09:25)
[2017-01-03] MEDS: CALCITRIOL 0.25 MCG CAP NG SCH (09:25)
[2017-01-03] MEDS: CALCIUM CARBONATE 1.25 GM (CA 500 MG) TAB PO SCH ×2 (09:25→21:00)
[2017-01-03] MEDS: FLUCONAZOLE 100 MG TAB PO SCH (09:25)
--- NOTE | 2017-01-03 11:43 | HHI.CCPN ---
Subjective Remarks/Hospital Course 61-year-old female. Date of admission 12/14/2016. Past records includes COPD/oxygen dependent, obstructive sleep apnea not using nocturnal CPAP , hypertension, morbid obesity. Hypertension, chronic kidney disease stage IV. She presents to [facility] 2 day history of shortness of breath. She is essentially in extremis 100 hour troponin emergency report. She is immediately placed on BiPAP however failed and was emergently endotracheally intubated. She required 100% FiO2 and was intermittently hypotensive the ED. CT head negative. Chest x-ray revealed possible vascular congestion. She is also noted of a calcium of 5.0. Elevated creatinine 5.1 with a baseline 1.9. she received 2 g calcium chloride and she received 20 mg IV Lasix. Regulator Tester discontinued IV fluids and starting Bumex at 2 mg IV twice a day. 2-D echocardiogram revealed hyperdynamic state with EF of 65-70%. 12/15: - Afebrile. Off all vasopressors. 700 cc urine overnight. She is responding to fluids. Currently on midazolam drip. We'll attempt sedation vacation today if FiO2 decreased to around 50%. 12/16: Afebrile. Off all vasopressors. 1300 cc urine output past 24 hours. Nonoliguric. Currently on Versed and fentanyl drips. Moving all 4 extremities spontaneous. Will briefly attempt sedation vacation day but resedate BRIANA. 12/17: Patient had to be neuromuscularly paralyzed due to high peak pressures and hypoventilation. Started on Bumex drip overnight. Currently on 70% fio2, 10 PEEP , due to severe hypoxia. BUN/Creat 108/5, but urine output is adequate on Bumex drip-Nephrology wants to wait 24 hours prior to HD. Chest exam reveals severe bilateral expiratory wheezing 12/18: Patient remains critically severely hypoxemic. Good response to Bumex gtt. 5.1 L urine output in 24 hours. BUN/creatinine trending down 99/4. Potassium being replaced. Continue to wean FiO2 as tolerated remains on 55% with 12 of PEEP. I will discontinue neuromuscular blockade today 12/19: Remains critically ill but stable. FiO2 remains at 50%, PEEP just earliest 8. Urine output more than 2 L on Bumex infusion but BUN is increased to 111 creatinine stable at 4. Discussed with nephrology DC Bumex infusion and start scheduled Bumex 1 mg every 8 hours 12/20: Requiring high FiO2 at 60% without improvement remains critically ill. Worsening BUN/creatinine today 136/4.6. Urine output 1 L in 24 hours. We'll start hemodialysis today after placing Vas-Cath. Patient not tolerating sedation vacation due to ventilator synchrony 12/21: Requiring heavy sedation for vent synchrony. FiO2 down to 40%, PEEP 8. HD started yesterday, repeat today. Creatinine slightly improved with dialysis 12/22: remaining encephalopathic. hypoxia somewhat improved. severely hypertensive despite medications. KAILEE persists on HD. volume overloaded. remaining critically ill with multiple organ systems involved and off pathway. 12/23: no significant improvements. HD yesterday with 2L net negative. encephalopathy persists. off versed. weaning propofol. failing SBT. Cr still elevated. still severely oliguric. 12/24: Despite negative fluid balance, still very critically ill, encephalopathic , and unable to tolerate SBT. Will likely require tracheostomy. 12/25: Patient remains critically ill encephalopathy. Intermittently but not consistently follows commands, appears very lethargic. BUN elevated to 138 today creatinine remained stable, patient is oliguric. Plan for HD today. I discussed with patient's daughter. Chance of successful extubation is slim, will proceed with tracheostomy tentatively planned for 12/26/1612/26: Patient is awake, but lethargic. With HD yesterday BUN improved to 98 from 138. Today Diffuse bilateral wheezing on exam. Chance of successful extubation minimal, vent day 13. Proceed with trach today. D/W pulmonology Dr. Oswadl and he agrees with the plane. Daughter has consented and I have explained plan to patient who is also agreeable 12/27: Patient had tracheostomy placed yesterday. Tolerated procedure well. More awake and following commands. BUN has increased today to 105 creatinine 2.3. Nephrology planning on hemodialysis today. UO 2.2 L in 24 hours 12/28 Patient s/p PEG tube placement yesterday. On Ventilator via trach on Fentanyl infusion for sedation. Afebrile. Tolerated CPAP x 6 hrs yesterday. 12/29 No events overnight. Sedated with Fentanyl and on ventilator via trach. Tolerated CPAP all day yesterday. Afebrile. 12/30 Patient is off sedation tolerated TP 's with 50% FIO2 yesterday for several hrs kept ON CPAP overnight with PS 12, PEEP:8 and FIO2 40%. Afebrile. 12/31 No events overnight. Tolerated TP's for all day yesterday 01/01 Patient remains on ventilator via trach. On CPAP with PS 12, PEEP:5 and FIO2 35%. Afebrile. 01/02 Today off ventilator, sitting up in stretcher chair. Talking with Passy- [place] valve. Mild respiratory distress with talking Subjective 01/03: Afebrile. Currently on Passy-[place] valve. Only getting PT 2 days weekly. We'll increase to daily. Tolerating diet. No bowel movement yesterday. Objective Vital Signs Date Time Temp Pulse Resp B/P (MAP) Pulse Ox O2 Delivery O2 Flow Rate FiO2 01/03/17 07:39 95 Trach Collar 5.00 28 01/03/17 06:00 72 01/03/17 04:00 98.6 23 146/70 (95) Intake and Output 01/03/17 01/03/17 01/04/17 08:00 16:00 00:00 Intake Total 240 ml Output Total 1200 ml Balance -960 ml Result Diagram: 01/02/17 1035 01/03/17 0457 Other Results Microbiology Date/Time Source Procedure Growth Status 12/15/16 05:03 Blood Peripheral Aerobic Blood Culture - Final NO GROWTH IN 5 DAYS Complete 12/15/16 05:03 Blood Peripheral Anaerobic Blood Culture - Final NO GROWTH IN 5 DAYS Complete 12/16/16 10:00 Sputum Endotracheal Gram Stain - Final Complete 12/16/16 10:00 Sputum Endotracheal Sputum Culture - Final LIGHT GROWTH NORMAL RESPIRATORY SLAVA Complete 01/02/17 17:30 Urine Catheterized Urine Urine Culture Pending Received Imaging Last Impressions Chest X-Ray 12/30/16 0000 Signed Impressions: Service Date/Time: Friday, December 30, 2016 08:20 - CONCLUSION: No acute disease. Nirav Camacho MD Abdomen X-Ray 12/26/16 0000 Signed Impressions: Service Date/Time: Monday, December 26, 2016 21:33 - CONCLUSION: Nasogastric tube tip is at the gastric outlet. Nirav Savage MD Liver Ultrasound 12/16/16 0000 Signed Impressions: Service Date/Time: Friday, December 16, 2016 15:25 - CONCLUSION: 1. The liver is prominent with no focal lesion or ascites. 2. The right kidney is small and atrophic in appearance with cortical thinning and no hydronephrosis. There is increased echogenicity most characteristic of medical renal disease. Dylan Bryant MD Renal Ultrasound 12/14/16 0000 Signed Impressions: Service Date/Time: Wednesday, December 14, 2016 18:21 - CONCLUSION: Medical renal disease with echogenic kidneys. There is some atrophy of the right kidney. Nirav Camacho MD Head CT 12/14/16 0000 Signed Impressions: Service Date/Time: Wednesday, December 14, 2016 17:38 - CONCLUSION: Negative for an acute process. Sander Resendiz MD FACR Objective Remarks GENERAL: 60-year-old female currently resting in bed on trach collar SKIN: Warm and dry. No rash. Poor skin turgor. HEAD: Atraumatic. Normocephalic. EYES: Pupils equal and round about 3 mm bilaterally and reactive. No scleral icterus. No injection or drainage. ENT: No nasal bleeding or discharge. Mucous membranes pink and moist. NECK: Trachea midline. JVD unable to assess due to obesity. Trach site C/D/I #8 [place]iley CARDIOVASCULAR: Regular rate and rhythm. S1, S2. No S4. RESPIRATORY: Diminished breath sounds throughout. Positive end expiratory wheezing. GASTROINTESTINAL: Abdomen soft, non-tender, protuberant. PEG tube site is clean dry and intact MUSCULOSKELETAL: Extremities without significant peripheral edema. No obvious deformities. NEUROLOGICAL: Alert awake, sitting up in stretcher chair. Talking with the Passy-La [place]alle valve. No focal deficits A/P Assessment and Plan Neuro/Psych: Toxic metabolic Encephalopathy - likely metabolic/CO2 retention, resolved Restless leg syndrome Diabetic neuropathy Off sedation monitor neuro status. Awake and alert CT brain 12/14 revealed no acute intracranial findings Acetaminophen for fever, Holding gabapentin 300 mg 3 times a day in light of altered mental status Resume gabapentin when clinically indicated Acetaminophen for fever when necessary Alprazolam 0.5 mg by mouth every 8 hours anxiety Patient requesting tramadol for pain management. Has been on in past without adverse effect CV: Hypertension History of hypertension History dyslipidemia Monitor HR and BP keep MAP >65mmHg Continue hydralazine 100 3 times a day, Isordil 10 mg 3 times a day. Procardia 40mg every 8 hours, clonidine 0.3 milligram TID. Labetalol 200mg po q8hr. Breakthrough labetalol and hydralazine iv. (Home medications include lisinopril 5 mill grams daily, metoprolol 50 mill grams twice a day, clonidine 0.1 mg 3 times a day, nifedipine 60 mill grams every 12 hours, Imdur 30 mg daily and hydralazine 100 mg 3 times daily.) Echocardiogram 2015 EF 55-60%. No regional wall motion abnormality. LEXIE- 61 mmHg. Mild MR. Echocardiogram 12/14/16 - EF 65-70%. No regional wall motion abnormality. Hyperdynamic state Resp: Acute hypoxemic respiratory failure-resolved Severe COPD/O2 dependent, with acute exacerbation HERACLIO/no CPAP at home Probable community-acquired pneumonia s/p Trach 12/26. Tolerating trach collar talking with the Passy-Margaret valve Albuterol/ipratropium aerosols every 6 hours with albuterol for breakthrough every 2 hours when necessary Budesonide 0.5 mg/2 mL one inhalation twice a day CXR 12/30: No acute disease At home Anoro Ellipta 62.5/25 one inhalation daily has been resumed and Symbicort 160/4.5 2 puffs every 12 hours with as needed albuterol Pulm Dr. Villareal/[facility]: Elevated transaminases- resolved s/p PEG tube placement 12/27 On tube feeds (Nepro)@40ml/hr. Likely can transition to oral Docusate sodium for bowel regimen. Avoid hepatotoxic medications. 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 Renal-Dr. Blackmon. Vascath d/c 01/01 per renal. Renal ultrasound 12/14 indicative of medical renal disease with atrophied right kidney Continue Ca carbonate 500 mg every 12 hours. Calcitrol 0.25 mcg daily continue per nephrology. Heme: Normocytic anemia Monitor CBC ID: Probable community-acquired pneumonia UTI Urine cx 12/27: C. Albicans. Diflucan 100mg daily till 01/05. Change Bonilla if not already changed, if nephrology agrees okay to discontinue Bonilla s/p full course of abx(piperacillin/tazobactam and levofloxacin). UA negative/, sputum neg to date. Blood cultures 12/14 and 12/15 negative to date. Negative urine pneumococcal and Legionella antigens Monitor for signs of infections ( Fever, WBC) Access Peripheral IV's Prophylaxis - GI -pantoprazole - DVT - SCD/heparin subcutaneous Level 2 Evaluate for LTAC placement Joseph Reilly MD Jan 03, 2017 11:43
[2017-01-03] MEDS: ACETAMINOPHEN 325 MG TAB PO PRN (12:05)
--- NOTE | 2017-01-03 13:49 | HHI.NPPN ---
Subjective Renal Failure: Chronic, Acute Interval History Renal function overall stable. She is sitting up in chair, able to eat/drink. No patient concerns. (Tootie Grant) Review of Systems General Constitutional: Fatigue General Remarks generalized pain (Tootie Grant) Respiratory Lungs: Wheeze (Tootie Grant) Objective Data Data Vital Signs Date Time Temp Pulse Resp B/P (MAP) Pulse Ox O2 Delivery O2 Flow Rate FiO2 01/03/17 12:00 98.3 76 34 132/64 (86) 91 01/03/17 12:00 76 01/03/17 10:00 67 01/03/17 08:00 66 01/03/17 08:00 98.3 66 30 118/65 (82) 100 01/03/17 07:39 95 Trach Collar 5.00 28 01/03/17 06:00 72 01/03/17 05:41 99 Trach Collar 5.00 28 01/03/17 04:06 99 35 01/03/17 04:00 35 01/03/17 04:00 98.6 63 23 146/70 (95) 98 01/03/17 04:00 63 01/03/17 02:00 81 01/03/17 00:00 35 01/03/17 00:00 98.4 66 23 115/61 (79) 98 01/03/17 00:00 66 01/02/17 23:47 98 35 01/02/17 22:20 22 01/02/17 22:00 71 01/02/17 20:51 99 35 01/02/17 20:19 95 Trach Collar 6.00 28 01/02/17 20:00 81 01/02/17 20:00 99.0 81 40 132/76 (94) 92 01/02/17 18:00 79 01/02/17 16:00 75 01/02/17 16:00 98.8 79 28 144/64 (90) 96 01/02/17 14:07 77 (Tootie Grant) -: 01/02/17 1035 01/03/17 0457 Microbiology 01/02/17 Urine Culture, Received Pending Tubes & Lines: Vas-Cath, Bonilla (Tootie Grant) Physical Exam General Appearance: Well Developed, No Acute Distress, Comfortable, Obese Appearance Remarks sitting up in chair, awake, speaking not on vent (Tootie Grant) Eyes Eye Exam: Pupils Equal (Tootie Grant) Throat Throat Exam: Oral Mucosa [place] & Moist Throat Remarks s/p trach placement (Tootie Grant) Neck Neck Exam: Neck Supple (Tootie Grant) Pulmonary Resp Exam: Breath Sounds Equal, No Distress, Diminished Breath Sounds (Tootie Grant) Cardiology CV Exam: Regular, Normal Sinus Rhythm (Tootie Grant) Gastrointestinal/Abdomen GI Exam: Soft, Non-Tender, Bowel Sounds Present GI Remarks + PEG, abdominal binder in place (Tootie Grant) Musculoskeletal MS Exam: Joints Intact, Normal Tone, Unable to Ambulate (Tootie Grant) Integumentary Skin Exam: Clear, Warm, Dry (Tootie Grant) Extremeties Extremities Exam: No Edema, Pedal Pulses Palpable (Tootie Grant) Neurologic Neuro Exam: Alert, Awake, Oriented, Speech Clear, Moving All Extremities (Tootie Grant) Psychiatric Psych Exam: Appropriate Responses (Tootie Grant) VTE Prophylaxis Device: SCDs (Tootie Grant) Assessment/Plan Discussed Condition With: Patient Assessment Summary: KAILEE/Acute Renal Failure, Acute Tubular Necrosis, Fluid/ Volume Overload, Hypertension, Diabetes Mellitus Electrolyte Assessment: Hypocalcemia Problem List: (1) Acute renal failure ICD Codes: N17.9 - Acute kidney failure, unspecified Status: Acute Plan: 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 Renal function returned to baseline. she has excellent urine output. She is on steroids which may be contributing to high BUN. Please continue taper down Prednisone as tolerated. Avoid nephrotoxic agents. Intermittent renal panel. Avoid IVF. (2) HCAP (healthcare-associated pneumonia) ICD Codes: J18.9 - Healthcare-associated pneumonia Status: Acute Plan: On solumedrol, she is off antibiotics. Monitor clinically (3) Acute respiratory failure ICD Codes: J96.00 - Acute respiratory failure Status: Acute Plan: . S/p tracheostomy 12/26 she is off the vent; has P Valve in place improving, monitor will need rehab after discharge (4) DM (diabetes mellitus) ICD Codes: E11.9 - Type 2 diabetes mellitus without complications Status: Chronic Plan: continue insulin therapy goal 140-180 mg/dL (5) Hypocalcemia ICD Codes: E83.51 - Hypocalcemia Plan: PTH is high due to secondary hyperparathyroidism On Calcitriol and Vitamin D3. 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 Renal function returned to baseline. she has excellent urine output. She is on steroids which may be contributing to high BUN. Please continue taper down Prednisone as tolerated. Avoid nephrotoxic agents. Intermittent renal panel. Avoid IVF. (2) HCAP (healthcare-associated pneumonia) ICD Codes: J18.9 - Healthcare-associated pneumonia Status: Acute Plan: On solumedrol, she is off antibiotics. Monitor clinically (3) Acute respiratory failure ICD Codes: J96.00 - Acute respiratory failure Status: Acute Plan: . S/p tracheostomy 12/26 she is off the vent; has P Valve in place improving, monitor will need rehab after discharge (4) DM (diabetes mellitus) ICD Codes: E11.9 - Type 2 diabetes mellitus without complications Status: Chronic Plan: continue insulin therapy goal 140-180 mg/dL (5) Hypocalcemia ICD Codes: E83.51 - Hypocalcemia Plan: PTH is high due to secondary hyperparathyroidism On Calcitriol and Vitamin D3. Hypocalcemia has corrected Plan patient was seen and examined. Agree with above assessment and plan. Renal function is stable. Avoid nephrotoxic agents. (Thomas Blackmon MD) Problem Qualifiers (1) Acute renal failure: Qualified Codes: N17.9 - Acute kidney failure, unspecified (2) Acute respiratory failure: Qualified Codes: J96.01 - Acute respiratory failure with hypoxia; J96.02 - Acute respiratory failure with hypercapnia (3) DM (diabetes mellitus): Qualified Codes: E13.9 - Other specified diabetes mellitus without complications Tootie Grant Jan 03, 2017 13:49 Tohmas Blackmon MD Jan 04, 2017 14:42
[2017-01-03] MEDS: traMADol HCL 50 MG TAB PO PRN (15:48)
[2017-01-03] MEDS ORDERED: DOCUSATE SODIUM 100 MG CAP PO SCH (21:00)
[2017-01-03] MEDS: DOCUSATE SODIUM 100 MG/10 ML UDC PO SCH (21:31)
[2017-01-03] MEDS: ALPRAZolam 0.5 MG TAB PO PRN (21:31)
[2017-01-03 22:18] LABS: HEMATOCRIT 23.6 % (35.0-46.0); MEAN CELL VOLUME 89.5 FL (80.0-100.0); MEAN CORPUSCULAR HEMOGLOBIN 29.5 PG (27.0-34.0); PLATELET COUNT 173 TH/MM3 (150-450); RED BLOOD COUNT 2.64 MIL/MM3 (4.00-5.30); RED CELL DISTRIBUTION WIDTH 15.5 % (11.6-17.2); REVIEW FLAG FINAL; WHITE BLOOD COUNT 3.8 TH/MM3 (4.0-11.0)
[2017-01-04] VITALS (15 sets, daily range): BP systolic 118–134; BP diastolic 60–70; PULSE 64–72; RESP 22–29; TEMP 97.1–98.6; O2SAT 90–98
[2017-01-04] MEDS: INSULIN NovoLIN REGULAR SUPPLEMENTAL SCALE SQ SCH ×4 (03:00→20:38)
[2017-01-04] MEDS: ISOSORBIDE DINITRATE 10 MG TAB PO SCH ×3 (04:57→22:50)
[2017-01-04] MEDS: LABETALOL HCL 200 MG TAB PO SCH ×3 (04:57→20:37)
[2017-01-04] MEDS: hydrALAZINE HCL 100 MG TAB PO SCH ×3 (04:57→22:50)
[2017-01-04] MEDS: cloNIDine HCL 0.3 MG TAB PO SCH ×3 (04:57→22:50)
[2017-01-04] MEDS: NIFEdipine 20 MG CAP PO SCH ×3 (04:57→22:50)
[2017-01-04 05:34] LABS: HEMATOCRIT 23.7 % (35.0-46.0); MEAN CORPUSCULAR HEMOGLOBIN 29.4 PG (27.0-34.0); MEAN CORPUSCULAR HGB CONC 32.6 % (32.0-36.0); PLATELET COUNT 169 TH/MM3 (150-450); RED BLOOD COUNT 2.63 MIL/MM3 (4.00-5.30); RED CELL DISTRIBUTION WIDTH 15.5 % (11.6-17.2); REVIEW FLAG FINAL; WHITE BLOOD COUNT 3.7 TH/MM3 (4.0-11.0)
[2017-01-04 05:56] LABS: BICARBONATE 26.6 MEQ/L (21.0-32.0); POTASSIUM 4.3 MEQ/L (3.5-5.1)
--- NOTE | 2017-01-04 08:34 | HHI.CCPN ---
Subjective Remarks/Hospital Course 61-year-old female. Date of admission 12/14/2016. Past records includes COPD/oxygen dependent, obstructive sleep apnea not using nocturnal CPAP , hypertension, morbid obesity. Hypertension, chronic kidney disease stage IV. She presents to [facility] 2 day history of shortness of breath. She is essentially in extremis 100 hour troponin emergency report. She is immediately placed on BiPAP however failed and was emergently endotracheally intubated. She required 100% FiO2 and was intermittently hypotensive the ED. CT head negative. Chest x-ray revealed possible vascular congestion. She is also noted of a calcium of 5.0. Elevated creatinine 5.1 with a baseline 1.9. she received 2 g calcium chloride and she received 20 mg IV Lasix. Rn Neonatal discontinued IV fluids and starting Bumex at 2 mg IV twice a day. 2-D echocardiogram revealed hyperdynamic state with EF of 65-70%. 12/15: - Afebrile. Off all vasopressors. 700 cc urine overnight. She is responding to fluids. Currently on midazolam drip. We'll attempt sedation vacation today if FiO2 decreased to around 50%. 12/16: Afebrile. Off all vasopressors. 1300 cc urine output past 24 hours. Nonoliguric. Currently on Versed and fentanyl drips. Moving all 4 extremities spontaneous. Will briefly attempt sedation vacation day but resedate BRIANA. 12/17: Patient had to be neuromuscularly paralyzed due to high peak pressures and hypoventilation. Started on Bumex drip overnight. Currently on 70% fio2, 10 PEEP , due to severe hypoxia. BUN/Creat 108/5, but urine output is adequate on Bumex drip-Nephrology wants to wait 24 hours prior to HD. Chest exam reveals severe bilateral expiratory wheezing 12/18: Patient remains critically severely hypoxemic. Good response to Bumex gtt. 5.1 L urine output in 24 hours. BUN/creatinine trending down 99/4. Potassium being replaced. Continue to wean FiO2 as tolerated remains on 55% with 12 of PEEP. I will discontinue neuromuscular blockade today 12/19: Remains critically ill but stable. FiO2 remains at 50%, PEEP just earliest 8. Urine output more than 2 L on Bumex infusion but BUN is increased to 111 creatinine stable at 4. Discussed with nephrology DC Bumex infusion and start scheduled Bumex 1 mg every 8 hours 12/20: Requiring high FiO2 at 60% without improvement remains critically ill. Worsening BUN/creatinine today 136/4.6. Urine output 1 L in 24 hours. We'll start hemodialysis today after placing Vas-Cath. Patient not tolerating sedation vacation due to ventilator synchrony 12/21: Requiring heavy sedation for vent synchrony. FiO2 down to 40%, PEEP 8. HD started yesterday, repeat today. Creatinine slightly improved with dialysis 12/22: remaining encephalopathic. hypoxia somewhat improved. severely hypertensive despite medications. KAILEE persists on HD. volume overloaded. remaining critically ill with multiple organ systems involved and off pathway. 12/23: no significant improvements. HD yesterday with 2L net negative. encephalopathy persists. off versed. weaning propofol. failing SBT. Cr still elevated. still severely oliguric. 12/24: Despite negative fluid balance, still very critically ill, encephalopathic , and unable to tolerate SBT. Will likely require tracheostomy. 12/25: Patient remains critically ill encephalopathy. Intermittently but not consistently follows commands, appears very lethargic. BUN elevated to 138 today creatinine remained stable, patient is oliguric. Plan for HD today. I discussed with patient's daughter. Chance of successful extubation is slim, will proceed with tracheostomy tentatively planned for 12/26/1612/26: Patient is awake, but lethargic. With HD yesterday BUN improved to 98 from 138. Today Diffuse bilateral wheezing on exam. Chance of successful extubation minimal, vent day 13. Proceed with trach today. D/W pulmonology Dr. Oswald and he agrees with the plane. Daughter has consented and I have explained plan to patient who is also agreeable 12/27: Patient had tracheostomy placed yesterday. Tolerated procedure well. More awake and following commands. BUN has increased today to 105 creatinine 2.3. Nephrology planning on hemodialysis today. UO 2.2 L in 24 hours 12/28 Patient s/p PEG tube placement yesterday. On Ventilator via trach on Fentanyl infusion for sedation. Afebrile. Tolerated CPAP x 6 hrs yesterday. 12/29 No events overnight. Sedated with Fentanyl and on ventilator via trach. Tolerated CPAP all day yesterday. Afebrile. 12/30 Patient is off sedation tolerated TP 's with 50% FIO2 yesterday for several hrs kept ON CPAP overnight with PS 12, PEEP:8 and FIO2 40%. Afebrile. 12/31 No events overnight. Tolerated TP's for all day yesterday 01/01 Patient remains on ventilator via trach. On CPAP with PS 12, PEEP:5 and FIO2 35%. Afebrile. 01/02 Today off ventilator, sitting up in stretcher chair. Talking with Passy- Ventress valve. Mild respiratory distress with talking 01/03: Afebrile. Currently on Passy-Margaret valve. Only getting PT 2 days weekly. We'll increase to daily. Tolerating diet. No bowel movement yesterday. Subjective 01/04: No acute events overnight. Tolerating diet. Tolerating trach collar. Denies complaint to present time. Objective Vital Signs Date Time Temp Pulse Resp B/P (MAP) Pulse Ox O2 Delivery O2 Flow Rate FiO2 01/04/17 06:00 66 01/04/17 04:05 98 35 01/04/17 04:00 97.1 22 133/70 (91) 01/03/17 19:54 Trach Collar 01/03/17 07:39 5.00 Intake and Output 01/04/17 01/04/17 01/05/17 08:00 16:00 00:00 Intake Total 240 ml Output Total 800 ml Balance -560 ml Result Diagram: 01/04/17 0452 01/04/17 0452 Other Results Microbiology Date/Time Source Procedure Growth Status 12/15/16 05:03 Blood Peripheral Aerobic Blood Culture - Final NO GROWTH IN 5 DAYS Complete 12/15/16 05:03 Blood Peripheral Anaerobic Blood Culture - Final NO GROWTH IN 5 DAYS Complete 12/16/16 10:00 Sputum Endotracheal Gram Stain - Final Complete 12/16/16 10:00 Sputum Endotracheal Sputum Culture - Final LIGHT GROWTH NORMAL RESPIRATORY SLAVA Complete 01/02/17 17:30 Urine Catheterized Urine Urine Culture - Preliminary RESULTS PENDING Resulted Imaging Last Impressions Chest X-Ray 12/30/16 0000 Signed Impressions: Service Date/Time: Friday, December 30, 2016 08:20 - CONCLUSION: No acute disease. Nirav Camacho MD Abdomen X-Ray 12/26/16 0000 Signed Impressions: Service Date/Time: Monday, December 26, 2016 21:33 - CONCLUSION: Nasogastric tube tip is at the gastric outlet. Nirav Savage MD Liver Ultrasound 12/16/16 0000 Signed Impressions: Service Date/Time: Friday, December 16, 2016 15:25 - CONCLUSION: 1. The liver is prominent with no focal lesion or ascites. 2. The right kidney is small and atrophic in appearance with cortical thinning and no hydronephrosis. There is increased echogenicity most characteristic of medical renal disease. Dylan Bryant MD Renal Ultrasound 12/14/16 0000 Signed Impressions: Service Date/Time: Wednesday, December 14, 2016 18:21 - CONCLUSION: Medical renal disease with echogenic kidneys. There is some atrophy of the right kidney. Nirav Camacho MD Head CT 12/14/16 0000 Signed Impressions: Service Date/Time: Wednesday, December 14, 2016 17:38 - CONCLUSION: Negative for an acute process. Sander Resendiz MD FACR Objective Remarks GENERAL: 60-year-old female currently resting in bed on trach collar SKIN: Warm and dry. No rash. Poor skin turgor. HEAD: Atraumatic. Normocephalic. EYES: Pupils equal and round about 3 mm bilaterally and reactive. No scleral icterus. No injection or drainage. ENT: No nasal bleeding or discharge. Mucous membranes pink and moist. NECK: Trachea midline. JVD unable to assess due to obesity. Trach site C/D/I #8 [place]iley CARDIOVASCULAR: Regular rate and rhythm. S1, S2. No S4. RESPIRATORY: Diminished breath sounds throughout. Positive end expiratory wheezing. GASTROINTESTINAL: Abdomen soft, non-tender, protuberant. PEG tube site is clean dry and intact MUSCULOSKELETAL: Extremities without significant peripheral edema. No obvious deformities. NEUROLOGICAL: Alert awake, sitting up in stretcher chair. Talking with the Passy-Ventress valve. No focal deficits A/P Assessment and Plan Neuro/Psych: Toxic metabolic Encephalopathy - likely metabolic/CO2 retention, resolved Restless leg syndrome Diabetic neuropathy Off sedation monitor neuro status. Awake and alert CT brain 12/14 revealed no acute intracranial findings Acetaminophen for fever, Holding gabapentin 300 mg 3 times a day in light of altered mental status Resume gabapentin when clinically indicated Acetaminophen for fever when necessary Alprazolam 0.5 mg by mouth every 8 hours anxiety Continue tramadol 50 mg as needed for pain management CV: Hypertension History of hypertension History dyslipidemia Monitor HR and BP keep MAP >65mmHg Continue hydralazine 100 3 times a day, Isordil 10 mg 3 times a day. Procardia 40mg every 8 hours, clonidine 0.3 milligram TID. Labetalol 200mg po q8hr. Breakthrough labetalol and hydralazine iv. (Home medications include lisinopril 5 mill grams daily, metoprolol 50 mill grams twice a day, clonidine 0.1 mg 3 times a day, nifedipine 60 mill grams every 12 hours, Imdur 30 mg daily and hydralazine 100 mg 3 times daily.) Echocardiogram 2015 EF 55-60%. No regional wall motion abnormality. LEXIE- 61 mmHg. Mild MR. Echocardiogram 12/14/16 - EF 65-70%. No regional wall motion abnormality. Hyperdynamic state Resp: Acute hypoxemic respiratory failure-resolved Severe COPD/O2 dependent, with acute exacerbation HERACLIO/no CPAP at home Probable community-acquired pneumonia s/p Trach 12/26. Tolerating trach collar talking with the Passy-Margaret valve Albuterol/ipratropium aerosols every 6 hours with albuterol for breakthrough every 2 hours when necessary Budesonide 0.5 mg/2 mL one inhalation twice a day CXR 12/30: No acute disease At home Anoro Ellipta 62.5/25 one inhalation daily has been resumed and Symbicort 160/4.5 2 puffs every 12 hours with as needed albuterol Pulm Dr. Noble GI: Elevated transaminases- resolved s/p PEG tube placement 12/27 On tube feeds (Nepro)@40ml/hr. Likely can transition to oral Docusate sodium for bowel regimen. Avoid hepatotoxic medications. Endo: Diabetes mellitus with neuropathy Hyperglycemia SSI with accuchecks Novulin R every 6/low regimen Renal: Acute kidney injury in the setting of Chronic kidney disease stage 4 - AIN versus medication requiring BISQUE PLACER Monitor renal function, I/O's, avoid nephrotoxins. Renal-Dr. Blackmon. Marco d/c 01/01 per renal. Renal ultrasound 12/14 indicative of medical renal disease with atrophied right kidney Continue Ca carbonate 500 mg every 12 hours. Calcitrol 0.25 mcg daily continue per nephrology. Heme: Normocytic anemia Leukopenia Monitor CBC ID: Probable community-acquired pneumonia UTI Urine cx 12/27: C. Albicans. Diflucan 100mg daily till 01/05. Change Bonilla if not already changed, if nephrology agrees okay to discontinue Bonilla s/p full course of abx(piperacillin/tazobactam and levofloxacin). UA negative/, sputum neg to date. Blood cultures 12/14 and 12/15 negative to date. Negative urine pneumococcal and Legionella antigens Monitor for signs of infections ( Fever, WBC) Access Peripheral IV's Prophylaxis - GI -pantoprazole - DVT - SCD/heparin subcutaneous Level 2 Evaluate for LTAC placement Joseph Reilly MD Jan 04, 2017 08:34
[2017-01-04] MEDS: RESP: ALBUTEROL 2.5 MG/IPRATROPIUM 0.5 MG NEB (SCH) INH ×3 (08:49→20:21)
[2017-01-04] MEDS: RESP: BUDESONIDE 0.5 MG/2 ML NEB NEB SCH ×2 (08:52→20:21)
[2017-01-04] MEDS: SODIUM CHLORIDE 0.9% FLUSH 10 ML FLUSH IVF SCH (09:00)
[2017-01-04] MEDS ORDERED: methylPREDNISolone SOD SUCC 40 MG/1 ML VIAL IV PUSH SCH (09:00)
[2017-01-04] MEDS: UMECLIDINIUM 62.5 MCG/VILANTEROL 25 MCG INHALER INH SCH (09:00)
[2017-01-04] MEDS: ARTIFICIAL TEARS OPTH SOLN 15 ML BTL EACH EYE SCH ×3 (09:00→18:00)
[2017-01-04] MEDS: DOCUSATE SODIUM 100 MG/10 ML UDC PO SCH ×2 (09:33→20:37)
[2017-01-04] MEDS: CALCITRIOL 0.25 MCG CAP NG SCH (09:33)
[2017-01-04] MEDS: predniSONE 10 MG TAB PO SCH (09:33)
[2017-01-04] MEDS: CHOLECALCIFEROL (VIT D3) 1000 UNIT TAB NG SCH (09:33)
[2017-01-04] MEDS: SODIUM CHLORIDE 0.9% FLUSH 10 ML FLUSH IV FLUSH SCH ×2 (09:33→20:39)
[2017-01-04] MEDS: FLUCONAZOLE 100 MG TAB PO SCH (09:33)
[2017-01-04] MEDS: CALCIUM CARBONATE 1.25 GM (CA 500 MG) TAB PO SCH ×2 (09:34→20:39)
[2017-01-04] MEDS: PANTOPRAZOLE SOD 20 MG DELAYED RELEASE TAB PO SCH (09:34)
[2017-01-04] MEDS: CHLORHEXIDINE 0.12% (ORAL KIT) 15 ML CUP MT SCH ×2 (09:40→20:00)
[2017-01-04] MEDS: traMADol HCL 50 MG TAB PO PRN (10:11)
[2017-01-04] MEDS: ALPRAZolam 0.5 MG TAB PO PRN ×2 (11:50→23:04)
--- NOTE | 2017-01-04 14:13 | HHI.NPPN ---
Subjective Renal Failure: Chronic, Acute Interval History She is sleeping, not in distress. Renal function is stable. (Tootie Grant) Review of Systems General Constitutional: Fatigue General Remarks generalized pain (Tootie Grant) Respiratory Lungs: Wheeze (Tootie Grant) Objective Data Data Vital Signs Date Time Temp Pulse Resp B/P (MAP) Pulse Ox O2 Delivery O2 Flow Rate FiO2 01/04/17 12:00 98.5 69 27 118/60 (79) 93 01/04/17 12:00 69 01/04/17 10:00 72 01/04/17 08:52 95 T-piece 6.00 28 01/04/17 08:00 98.3 66 22 126/67 (86) 96 01/04/17 08:00 70 01/04/17 06:00 66 01/04/17 04:05 98 35 01/04/17 04:00 65 01/04/17 04:00 97.1 65 22 133/70 (91) 97 01/04/17 02:00 67 01/04/17 00:00 64 01/04/17 00:00 97.4 66 22 125/67 (86) 94 01/03/17 23:04 100 35 01/03/17 22:00 75 01/03/17 20:00 77 01/03/17 20:00 98.3 77 36 117/61 (79) 97 01/03/17 19:54 98 Trach Collar 28 01/03/17 18:00 74 01/03/17 16:00 76 01/03/17 16:00 98.4 76 35 111/57 (75) 91 (Tootie Grant) -: 01/04/17 0452 01/04/17 0452 Tubes & Lines: Vas-Cath, Raphael (Tootie Grant) Physical Exam General Appearance: Well Developed, No Acute Distress, Comfortable, Obese (Tootie Grant) Eyes Eye Exam: Pupils Equal (Tootie Grant) Throat Throat Exam: Oral Mucosa [place] & Moist Throat Remarks trach (Tootie Grant) Neck Neck Exam: Neck Supple (Tootie Grant) Pulmonary Resp Exam: Breath Sounds Equal, No Distress, Diminished Breath Sounds (Tootie Grant) Cardiology CV Exam: Regular, Normal Sinus Rhythm (Tootie Grant) Gastrointestinal/Abdomen GI Exam: Soft, Non-Tender, Bowel Sounds Present GI Remarks + PEG, abdominal binder in place (Tootie Grant) Musculoskeletal MS Exam: Joints Intact, Normal Tone, Unable to Ambulate (Tootie Grant) Integumentary Skin Exam: Clear, Warm, Dry (Tootie Grant) Extremeties Extremities Exam: No Edema, Pedal Pulses Palpable (Tootie Grant) Neurologic Neuro Exam: Alert, Awake, Oriented, Speech Clear, Moving All Extremities (Tootie Grant) Psychiatric Psych Exam: Appropriate Responses (Tootie Grant) VTE Prophylaxis Device: SCDs (Tootie Grant) Assessment/Plan Discussed Condition With: Patient Assessment Summary: KAILEE/Acute Renal Failure, Acute Tubular Necrosis, Fluid/ Volume Overload, Hypertension, Diabetes Mellitus Electrolyte Assessment: Hypocalcemia Problem List: (1) Acute renal failure ICD Codes: N17.9 - Acute kidney failure, unspecified Status: Acute Plan: 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 Vascath was removed. Renal function has returned to baseline and remained stable. She has excellent urine output. Remove raphael soon. She is on steroids which may be contributing to high BUN. Please continue taper down Prednisone as tolerated. Avoid nephrotoxic agents. Obtain Intermittent renal panel. IVF not required. (2) HCAP (healthcare-associated pneumonia) ICD Codes: J18.9 - Healthcare-associated pneumonia Status: Acute Plan: On prednisone, she is off antibiotics. continue nebulizers as needed Monitor clinically (3) Acute respiratory failure ICD Codes: J96.00 - Acute respiratory failure Status: Acute Plan: . S/p tracheostomy 12/26 she is off the vent; has P Valve in place improving, monitor will need rehab after discharge (4) DM (diabetes mellitus) ICD Codes: E11.9 - Type 2 diabetes mellitus without complications Status: Chronic Plan: continue insulin therapy goal 140-180 mg/dL (5) Hypocalcemia ICD Codes: E83.51 - Hypocalcemia Plan: PTH is high due to secondary hyperparathyroidism On Calcitriol and Vitamin D3. Hypocalcemia has corrected (Tootie Grant) Plan patient was seen and examined. Agree with above assessment and plan. Stable renal function. Non oliguric. (Thomas Blackmon MD) Problem Qualifiers (1) Acute renal failure: Qualified Codes: N17.9 - Acute kidney failure, unspecified (2) Acute respiratory failure: Qualified Codes: J96.01 - Acute respiratory failure with hypoxia; J96.02 - Acute respiratory failure with hypercapnia (3) DM (diabetes mellitus): Qualified Codes: E13.9 - Other specified diabetes mellitus without complications Tootie Grant Jan 04, 2017 14:13 Thomas Blackmon MD Jan 04, 2017 14:51
[2017-01-04 17:11] LABS: BLOOD GAS BASE EXCESS 1.3 mmol/L (-2-2); BLOOD GAS CARBOXYHEMOGLOBIN 2.1 % (0-4); BLOOD GAS HCO3 25 mmol/L (22-26); BLOOD GAS METHEMOGLOBIN 1.4 % (0-2); BLOOD GAS O2 HGB SATURATION 90 % (90-100); BLOOD GAS OXYGEN CONTENT 9.7 Vol % (12.0-20.0); BLOOD GAS PCO2 33 mmHg (38-42); BLOOD GAS PO2 67 mmHg (61-120); BLOOD GAS TOTAL HGB 7.6 G/DL (12.0-16.0); CRITICAL VALUE NO; TEMP CORR TO 98.6
[2017-01-04 17:12] LABS: DRAW SITE RT RADIAL; FIO2 28 %; NUMBER OF ARTERIAL PUNCTURES 1; OXYGEN DEVICE SEE COMMENTS; STAT NO; ULNAR PULSE PRESENT
[2017-01-05] VITALS (16 sets, daily range): BP systolic 95–131; BP diastolic 57–77; PULSE 63–80; RESP 18–31; TEMP 98–98.9; O2SAT 35–98
[2017-01-05] MEDS: INSULIN NovoLIN REGULAR SUPPLEMENTAL SCALE SQ SCH ×4 (03:00→21:00)
[2017-01-05] MEDS: LABETALOL HCL 200 MG TAB PO SCH ×3 (03:28→21:41)
[2017-01-05] MEDS: CHLORHEXIDINE GLUCONATE 2 % 1 PACK (2 CLOTHS) TOP SCH (03:30)
[2017-01-05 05:03] LABS: MEAN CELL VOLUME 89.8 FL (80.0-100.0); MEAN CORPUSCULAR HEMOGLOBIN 29.4 PG (27.0-34.0); MEAN CORPUSCULAR HGB CONC 32.7 % (32.0-36.0); PLATELET COUNT 187 TH/MM3 (150-450); RED BLOOD COUNT 2.67 MIL/MM3 (4.00-5.30); RED CELL DISTRIBUTION WIDTH 15.4 % (11.6-17.2); REVIEW FLAG FINAL; WHITE BLOOD COUNT 3.5 TH/MM3 (4.0-11.0)
[2017-01-05 05:16] LABS: BICARBONATE 26.3 MEQ/L (21.0-32.0); POTASSIUM 4.1 MEQ/L (3.5-5.1)
[2017-01-05] MEDS: cloNIDine HCL 0.3 MG TAB PO SCH ×3 (06:30→21:45)
[2017-01-05] MEDS: NIFEdipine 20 MG CAP PO SCH ×3 (06:30→21:40)
[2017-01-05] MEDS: ISOSORBIDE DINITRATE 10 MG TAB PO SCH ×3 (06:30→21:41)
[2017-01-05] MEDS: hydrALAZINE HCL 100 MG TAB PO SCH ×3 (06:31→21:40)
[2017-01-05] MEDS: ALPRAZolam 0.5 MG TAB PO PRN ×2 (07:33→22:19)
[2017-01-05] MEDS: RESP: ALBUTEROL 2.5 MG/IPRATROPIUM 0.5 MG NEB (SCH) INH ×4 (08:44→21:26)
[2017-01-05] MEDS: RESP: BUDESONIDE 0.5 MG/2 ML NEB NEB SCH ×2 (08:44→21:26)
[2017-01-05] MEDS: ARTIFICIAL TEARS OPTH SOLN 15 ML BTL EACH EYE SCH (09:00)
[2017-01-05] MEDS: UMECLIDINIUM 62.5 MCG/VILANTEROL 25 MCG INHALER INH SCH (09:00)
[2017-01-05] MEDS: PANTOPRAZOLE SOD 20 MG DELAYED RELEASE TAB PO SCH (09:10)
[2017-01-05] MEDS: DOCUSATE SODIUM 100 MG/10 ML UDC PO SCH ×2 (09:10→21:40)
[2017-01-05] MEDS: CALCIUM CARBONATE 1.25 GM (CA 500 MG) TAB PO SCH ×2 (09:10→21:40)
[2017-01-05] MEDS: predniSONE 10 MG TAB PO SCH (09:10)
[2017-01-05] MEDS: FLUCONAZOLE 100 MG TAB PO SCH (09:10)
[2017-01-05] MEDS: CALCITRIOL 0.25 MCG CAP NG SCH (09:11)
[2017-01-05] MEDS: CHOLECALCIFEROL (VIT D3) 1000 UNIT TAB NG SCH (09:11)
[2017-01-05] MEDS: CHLORHEXIDINE 0.12% (ORAL KIT) 15 ML CUP MT SCH ×2 (09:26→21:40)
[2017-01-05] MEDS: SODIUM CHLORIDE 0.9% FLUSH 10 ML FLUSH IV FLUSH SCH ×2 (09:28→21:42)
[2017-01-05] MEDS: SODIUM CHLORIDE 0.9% FLUSH 10 ML FLUSH IVF SCH (09:28)
--- NOTE | 2017-01-05 10:12 | HHI.CCPN ---
Subjective Remarks/Hospital Course 61-year-old female. Date of admission 12/14/2016. Past records includes COPD/oxygen dependent, obstructive sleep apnea not using nocturnal CPAP , hypertension, morbid obesity. Hypertension, chronic kidney disease stage IV. She presents to [facility] 2 day history of shortness of breath. She is essentially in extremis 100 hour troponin emergency report. She is immediately placed on BiPAP however failed and was emergently endotracheally intubated. She required 100% FiO2 and was intermittently hypotensive the ED. CT head negative. Chest x-ray revealed possible vascular congestion. She is also noted of a calcium of 5.0. Elevated creatinine 5.1 with a baseline 1.9. she received 2 g calcium chloride and she received 20 mg IV Lasix. Data Processing Mechanic discontinued IV fluids and starting Bumex at 2 mg IV twice a day. 2-D echocardiogram revealed hyperdynamic state with EF of 65-70%. 12/15: - Afebrile. Off all vasopressors. 700 cc urine overnight. She is responding to fluids. Currently on midazolam drip. We'll attempt sedation vacation today if FiO2 decreased to around 50%. 12/16: Afebrile. Off all vasopressors. 1300 cc urine output past 24 hours. Nonoliguric. Currently on Versed and fentanyl drips. Moving all 4 extremities spontaneous. Will briefly attempt sedation vacation day but resedate BRIANA. 12/17: Patient had to be neuromuscularly paralyzed due to high peak pressures and hypoventilation. Started on Bumex drip overnight. Currently on 70% fio2, 10 PEEP , due to severe hypoxia. BUN/Creat 108/5, but urine output is adequate on Bumex drip-Nephrology wants to wait 24 hours prior to HD. Chest exam reveals severe bilateral expiratory wheezing 12/18: Patient remains critically severely hypoxemic. Good response to Bumex gtt. 5.1 L urine output in 24 hours. BUN/creatinine trending down 99/4. Potassium being replaced. Continue to wean FiO2 as tolerated remains on 55% with 12 of PEEP. I will discontinue neuromuscular blockade today 12/19: Remains critically ill but stable. FiO2 remains at 50%, PEEP just earliest 8. Urine output more than 2 L on Bumex infusion but BUN is increased to 111 creatinine stable at 4. Discussed with nephrology DC Bumex infusion and start scheduled Bumex 1 mg every 8 hours 12/20: Requiring high FiO2 at 60% without improvement remains critically ill. Worsening BUN/creatinine today 136/4.6. Urine output 1 L in 24 hours. We'll start hemodialysis today after placing Vas-Cath. Patient not tolerating sedation vacation due to ventilator synchrony 12/21: Requiring heavy sedation for vent synchrony. FiO2 down to 40%, PEEP 8. HD started yesterday, repeat today. Creatinine slightly improved with dialysis 12/22: remaining encephalopathic. hypoxia somewhat improved. severely hypertensive despite medications. KAILEE persists on HD. volume overloaded. remaining critically ill with multiple organ systems involved and off pathway. 12/23: no significant improvements. HD yesterday with 2L net negative. encephalopathy persists. off versed. weaning propofol. failing SBT. Cr still elevated. still severely oliguric. 12/24: Despite negative fluid balance, still very critically ill, encephalopathic , and unable to tolerate SBT. Will likely require tracheostomy. 12/25: Patient remains critically ill encephalopathy. Intermittently but not consistently follows commands, appears very lethargic. BUN elevated to 138 today creatinine remained stable, patient is oliguric. Plan for HD today. I discussed with patient's daughter. Chance of successful extubation is slim, will proceed with tracheostomy tentatively planned for 12/26/1612/26: Patient is awake, but lethargic. With HD yesterday BUN improved to 98 from 138. Today Diffuse bilateral wheezing on exam. Chance of successful extubation minimal, vent day 13. Proceed with trach today. D/W pulmonology Dr. Oswald and he agrees with the plane. Daughter has consented and I have explained plan to patient who is also agreeable 12/27: Patient had tracheostomy placed yesterday. Tolerated procedure well. More awake and following commands. BUN has increased today to 105 creatinine 2.3. Nephrology planning on hemodialysis today. UO 2.2 L in 24 hours 12/28 Patient s/p PEG tube placement yesterday. On Ventilator via trach on Fentanyl infusion for sedation. Afebrile. Tolerated CPAP x 6 hrs yesterday. 12/29 No events overnight. Sedated with Fentanyl and on ventilator via trach. Tolerated CPAP all day yesterday. Afebrile. 12/30 Patient is off sedation tolerated TP 's with 50% FIO2 yesterday for several hrs kept ON CPAP overnight with PS 12, PEEP:8 and FIO2 40%. Afebrile. 12/31 No events overnight. Tolerated TP's for all day yesterday 01/01 Patient remains on ventilator via trach. On CPAP with PS 12, PEEP:5 and FIO2 35%. Afebrile. 01/02 Today off ventilator, sitting up in stretcher chair. Talking with Passy- Concord valve. Mild respiratory distress with talking 01/03: Afebrile. Currently on Passy-Margaret valve. Only getting PT 2 days weekly. We'll increase to daily. Tolerating diet. No bowel movement yesterday. 01/04: No acute events overnight. Tolerating diet. Tolerating trach collar. Denies complaint to present time. Subjective 01/05: Placed on PSV overnight secondary dyspnea. Will transition back to trach collar trial today. Tolerating diet. Laboratories within normal limits. Receive alprazolam overnight for anxiety Objective Vital Signs Date Time Temp Pulse Resp B/P (MAP) Pulse Ox O2 Delivery O2 Flow Rate FiO2 01/05/17 09:50 89 Trach Collar 6.00 40 01/05/17 06:00 67 01/05/17 04:00 98.3 18 104/60 (75) Intake and Output 01/05/17 01/05/17 01/06/17 08:00 16:00 00:00 Intake Total 240 ml Output Total 1400 ml Balance -1160 ml Result Diagram: 01/05/17 0358 01/05/17 0358 Other Results Microbiology Date/Time Source Procedure Growth Status 12/15/16 05:03 Blood Peripheral Aerobic Blood Culture - Final NO GROWTH IN 5 DAYS Complete 12/15/16 05:03 Blood Peripheral Anaerobic Blood Culture - Final NO GROWTH IN 5 DAYS Complete 12/16/16 10:00 Sputum Endotracheal Gram Stain - Final Complete 12/16/16 10:00 Sputum Endotracheal Sputum Culture - Final LIGHT GROWTH NORMAL RESPIRATORY SLAVA Complete 01/02/17 17:30 Urine Catheterized Urine Urine Culture - Final Chaya Albicans Complete Imaging Last Impressions Chest X-Ray 12/30/16 0000 Signed Impressions: Service Date/Time: Friday, December 30, 2016 08:20 - CONCLUSION: No acute disease. Nirav Camacho MD Abdomen X-Ray 12/26/16 0000 Signed Impressions: Service Date/Time: Monday, December 26, 2016 21:33 - CONCLUSION: Nasogastric tube tip is at the gastric outlet. Nirav Savage MD Liver Ultrasound 12/16/16 0000 Signed Impressions: Service Date/Time: Friday, December 16, 2016 15:25 - CONCLUSION: 1. The liver is prominent with no focal lesion or ascites. 2. The right kidney is small and atrophic in appearance with cortical thinning and no hydronephrosis. There is increased echogenicity most characteristic of medical renal disease. Dylan Bryant MD Renal Ultrasound 12/14/16 0000 Signed Impressions: Service Date/Time: Wednesday, December 14, 2016 18:21 - CONCLUSION: Medical renal disease with echogenic kidneys. There is some atrophy of the right kidney. Nirav Camacho MD Head CT 12/14/16 0000 Signed Impressions: Service Date/Time: Wednesday, December 14, 2016 17:38 - CONCLUSION: Negative for an acute process. Sander Resendiz MD FACR Objective Remarks GENERAL: 60-year-old female currently resting in bed on ventilator via tracheostomy distress SKIN: Warm and dry. No rash. Poor skin turgor. HEAD: Atraumatic. Normocephalic. EYES: Pupils equal and round about 3 mm bilaterally and reactive. No scleral icterus. No injection or drainage. ENT: No nasal bleeding or discharge. Mucous membranes pink and moist. NECK: Trachea midline. JVD unable to assess due to obesity. Trach site C/D/I #8 [place]iley CARDIOVASCULAR: Regular rate and rhythm. S1, S2. No S4. RESPIRATORY: Diminished breath sounds throughout. Positive end expiratory wheezing. GASTROINTESTINAL: Abdomen soft, non-tender, protuberant. PEG tube site is clean dry and intact MUSCULOSKELETAL: Extremities without significant peripheral edema. No obvious deformities. NEUROLOGICAL: Alert awake, in bed. Cranial nerves II through XII grossly intact. Strength is 4+ out of 5 bilateral upper and lower extremities. No focal deficits A/P Assessment and Plan Neuro/Psych: Toxic metabolic Encephalopathy - likely metabolic/CO2 retention, resolved Restless leg syndrome Diabetic neuropathy Off sedation monitor neuro status. Awake and alert CT brain 12/14 revealed no acute intracranial findings Acetaminophen for fever, Holding gabapentin 300 mg 3 times a day Resume gabapentin when clinically indicated likely Saturday at 100 3 times a day Acetaminophen for fever when necessary Alprazolam 0.5 mg by mouth every 8 hours anxiety Continue tramadol 50 mg as needed for pain management CV: Hypertension History of hypertension History dyslipidemia Monitor HR and BP keep MAP >65mmHg Continue hydralazine 100 3 times a day, Isordil 10 mg 3 times a day. Procardia 40mg every 8 hours, clonidine 0.3 milligram TID. Labetalol 200mg po q8hr. Breakthrough labetalol and hydralazine iv. (Home medications include lisinopril 5 mill grams daily, metoprolol 50 mill grams twice a day, clonidine 0.1 mg 3 times a day, nifedipine 60 mill grams every 12 hours, Imdur 30 mg daily and hydralazine 100 mg 3 times daily.) Echocardiogram 2015 EF 55-60%. No regional wall motion abnormality. LEXIE- 61 mmHg. Mild MR. Echocardiogram 12/14/16 - EF 65-70%. No regional wall motion abnormality. Hyperdynamic state Resp: Acute hypoxemic respiratory failure-resolved Severe COPD/O2 dependent, with acute exacerbation HERACLIO/no CPAP at home Probable community-acquired pneumonia s/p Trach 12/26. Tolerating trach collar talking with the Passy-Concord valve Albuterol/ipratropium aerosols every 6 hours with albuterol for breakthrough every 2 hours when necessary Budesonide 0.5 mg/2 mL one inhalation twice a day CXR 12/30: No acute disease At home Anoro Ellipta 62.5/25 one inhalation daily has been resumed and Symbicort 160/4.5 2 puffs every 12 hours with as needed albuterol Pulm Dr. Noble GI: Elevated transaminases- resolved s/p PEG tube placement 12/27 On tube feeds (Nepro)@40ml/hr. Likely can transition to oral Docusate sodium for bowel regimen. Avoid hepatotoxic medications. Endo: Diabetes mellitus with neuropathy Hyperglycemia SSI with accuchecks Novulin R every 6/low regimen Renal: Acute kidney injury in the setting of Chronic kidney disease stage 4 - AIN versus medication requiring WELLHEAD PUMPER Monitor renal function, I/O's, avoid nephrotoxins. Renal-Dr. Blackmon. Vascath d/c 01/01 per renal. Renal ultrasound 12/14 indicative of medical renal disease with atrophied right kidney Continue Ca carbonate 500 mg every 12 hours. Calcitrol 0.25 mcg daily continue per nephrology. Heme: Normocytic anemia Leukopenia Monitor CBC ID: Probable community-acquired pneumonia UTI Urine cx 12/27: C. Albicans. Diflucan 100mg daily till 01/05. Change Bonilla if not already changed, if nephrology agrees okay to discontinue Bonilla s/p full course of abx(piperacillin/tazobactam and levofloxacin). UA negative/, sputum neg to date. Blood cultures 12/14 and 12/15 negative to date. Negative urine pneumococcal and Legionella antigens Monitor for signs of infections ( Fever, WBC) Access Peripheral IV's Prophylaxis - GI -pantoprazole - DVT - SCD/heparin subcutaneous Level 2 Evaluate for LTAC placement Laboratory holiday per 01/05 Joseph Reilly MD Jan 05, 2017 10:12
--- NOTE | 2017-01-05 11:36 | HHI.NPPN ---
Subjective Renal Failure: Chronic, Acute History of Present Illness 60 y/o female pt with whom we follow in outpatient setting. PMH of COPD, HTN, DM and hyperlipidemia, she also has CKD IV , due to diabetic nephropathy. Her baseline creatinine measures 1.9, GFR 28. She came in for shortness of breath for days. Additional Remarks Patient is awake, has been in mild resp. distress, with Trach. collar. Review of Systems General Constitutional: Fatigue General Remarks generalized pain Respiratory Lungs: Wheeze Objective Data Data Vital Signs Date Time Temp Pulse Resp B/P (MAP) Pulse Ox O2 Delivery O2 Flow Rate FiO2 01/05/17 09:50 89 Trach Collar 6.00 40 01/05/17 08:44 96 35 01/05/17 08:00 35 01/05/17 06:00 67 01/05/17 04:00 98.3 63 18 104/60 (75) 94 01/05/17 04:00 63 01/05/17 04:00 35 01/05/17 03:09 35 35 01/05/17 02:00 68 01/05/17 00:00 67 01/05/17 00:00 98.0 67 20 116/64 (81) 91 01/04/17 22:00 71 01/04/17 20:22 95 Trach Collar 28 01/04/17 20:00 98.1 67 22 118/62 (80) 93 01/04/17 20:00 72 01/04/17 18:00 70 01/04/17 16:00 98.6 71 29 134/68 (90) 90 01/04/17 16:00 71 01/04/17 14:00 66 01/04/17 12:00 98.5 69 27 118/60 (79) 93 01/04/17 12:00 69 -: 01/05/17 0358 01/05/17 0358 Tubes & Lines: Vas-Cath, Bonilla Physical Exam General Appearance: Well Developed, No Acute Distress, Comfortable, Obese Eyes Eye Exam: Pupils Equal Throat Throat Exam: Oral Mucosa [place] & Moist Neck Neck Exam: Neck Supple Pulmonary Resp Exam: Breath Sounds Equal, No Distress, Diminished Breath Sounds Cardiology CV Exam: Regular, Normal Sinus Rhythm Gastrointestinal/Abdomen GI Exam: Soft, Non-Tender, Bowel Sounds Present Musculoskeletal MS Exam: Joints Intact, Normal Tone, Unable to Ambulate Integumentary Skin Exam: Clear, Warm, Dry Extremeties Extremities Exam: Trace Edema Neurologic Neuro Exam: Alert, Awake, Oriented Psychiatric Psych Exam: Appropriate Responses VTE Prophylaxis Device: SCDs Assessment/Plan Discussed Condition With: Patient Assessment Summary: KAILEE/Acute Renal Failure, Acute Tubular Necrosis, Fluid/ Volume Overload, Hypertension, Diabetes Mellitus Electrolyte Assessment: Hypocalcemia Problem List: (1) Acute renal failure ICD Codes: N17.9 - Acute kidney failure, unspecified Status: Acute Plan: 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 Renal function returned to baseline. she has excellent urine output. She is on steroids which may be contributing to high BUN. Continue taper down Prednisone as tolerated. Avoid nephrotoxic agents. Follow the urine out put and BMP. (2) HCAP (healthcare-associated pneumonia) ICD Codes: J18.9 - Healthcare-associated pneumonia Status: Acute Plan: On solumedrol, she is off antibiotics. Monitor clinically (3) Acute respiratory failure ICD Codes: J96.00 - Acute respiratory failure Status: Acute Plan: . S/p tracheostomy 12/26 she is off the vent; has P Valve in place improving, monitor will need rehab after discharge (4) DM (diabetes mellitus) ICD Codes: E11.9 - Type 2 diabetes mellitus without complications Status: Chronic Plan: continue insulin therapy goal 140-180 mg/dL (5) Hypocalcemia ICD Codes: E83.51 - Hypocalcemia Plan: PTH is high due to secondary hyperparathyroidism On Calcitriol and Vitamin D3. Hypocalcemia has corrected Plan patient was seen and examined. Agree with above assessment and plan. Stable renal function. Non oliguric. Problem Qualifiers (1) Acute renal failure: Qualified Codes: N17.9 - Acute kidney failure, unspecified (2) Acute respiratory failure: Qualified Codes: J96.01 - Acute respiratory failure with hypoxia; J96.02 - Acute respiratory failure with hypercapnia (3) DM (diabetes mellitus): Qualified Codes: E13.9 - Other specified diabetes mellitus without complications Thomas Hines MD Jan 05, 2017 11:36
[2017-01-05] MEDS: HEPARIN SODIUM - SQ 10,000 UNITS/ML VIAL SQ SCH (14:00)
[2017-01-05] MEDS: ACETAMINOPHEN 325 MG TAB PO PRN (14:19)
[2017-01-06] VITALS (13 sets, daily range): BP systolic 116–141; BP diastolic 64–78; PULSE 68–84; RESP 18–37; TEMP 98–98.8; O2SAT 93–99
[2017-01-06] MEDS: HEPARIN SODIUM - SQ 10,000 UNITS/ML VIAL SQ SCH ×2 (01:55→12:48)
[2017-01-06] MEDS: INSULIN NovoLIN REGULAR SUPPLEMENTAL SCALE SQ SCH ×4 (03:00→21:00)
[2017-01-06] MEDS: CHLORHEXIDINE GLUCONATE 2 % 1 PACK (2 CLOTHS) TOP SCH (03:50)
[2017-01-06] MEDS: LABETALOL HCL 200 MG TAB PO SCH ×3 (03:50→21:20)
[2017-01-06] MEDS: hydrALAZINE HCL 100 MG TAB PO SCH ×3 (05:21→21:20)
[2017-01-06] MEDS: cloNIDine HCL 0.3 MG TAB PO SCH ×3 (05:21→21:20)
[2017-01-06] MEDS: NIFEdipine 20 MG CAP PO SCH ×3 (05:21→21:20)
[2017-01-06] MEDS: ISOSORBIDE DINITRATE 10 MG TAB PO SCH ×3 (05:22→21:20)
[2017-01-06] MEDS: ALPRAZolam 0.5 MG TAB PO PRN ×2 (05:46→22:55)
[2017-01-06] MEDS: RESP: ALBUTEROL 2.5 MG/IPRATROPIUM 0.5 MG NEB (SCH) INH ×4 (07:45→21:33)
[2017-01-06] MEDS: RESP: BUDESONIDE 0.5 MG/2 ML NEB NEB SCH ×2 (07:45→21:33)
[2017-01-06] MEDS: CHLORHEXIDINE 0.12% (ORAL KIT) 15 ML CUP MT SCH ×2 (08:02→21:20)
[2017-01-06] MEDS: DOCUSATE SODIUM 100 MG/10 ML UDC PO SCH ×2 (08:02→21:21)
[2017-01-06] MEDS: CALCIUM CARBONATE 1.25 GM (CA 500 MG) TAB PO SCH ×2 (08:03→21:20)
[2017-01-06] MEDS: CHOLECALCIFEROL (VIT D3) 1000 UNIT TAB NG SCH (08:03)
[2017-01-06] MEDS: predniSONE 10 MG TAB PO SCH (08:03)
[2017-01-06] MEDS: CALCITRIOL 0.25 MCG CAP NG SCH (08:03)
[2017-01-06] MEDS: SODIUM CHLORIDE 0.9% FLUSH 10 ML FLUSH IVF SCH (08:03)
[2017-01-06] MEDS: PANTOPRAZOLE SOD 20 MG DELAYED RELEASE TAB PO SCH (08:03)
[2017-01-06] MEDS: SODIUM CHLORIDE 0.9% FLUSH 10 ML FLUSH IV FLUSH SCH ×2 (08:03→21:21)
[2017-01-06] MEDS: UMECLIDINIUM 62.5 MCG/VILANTEROL 25 MCG INHALER INH SCH (08:04)
--- NOTE | 2017-01-06 11:29 | HHI.CCPN ---
Subjective Remarks/Hospital Course 61-year-old female. Date of admission 12/14/2016. Past records includes COPD/oxygen dependent, obstructive sleep apnea not using nocturnal CPAP , hypertension, morbid obesity. Hypertension, chronic kidney disease stage IV. She presents to [facility] 2 day history of shortness of breath. She is essentially in extremis 100 hour troponin emergency report. She is immediately placed on BiPAP however failed and was emergently endotracheally intubated. She required 100% FiO2 and was intermittently hypotensive the ED. CT head negative. Chest x-ray revealed possible vascular congestion. She is also noted of a calcium of 5.0. Elevated creatinine 5.1 with a baseline 1.9. she received 2 g calcium chloride and she received 20 mg IV Lasix. [employer] discontinued IV fluids and starting Bumex at 2 mg IV twice a day. 2-D echocardiogram revealed hyperdynamic state with EF of 65-70%. 12/15: - Afebrile. Off all vasopressors. 700 cc urine overnight. She is responding to fluids. Currently on midazolam drip. We'll attempt sedation vacation today if FiO2 decreased to around 50%. 12/16: Afebrile. Off all vasopressors. 1300 cc urine output past 24 hours. Nonoliguric. Currently on Versed and fentanyl drips. Moving all 4 extremities spontaneous. Will briefly attempt sedation vacation day but resedate BRIANA. 12/17: Patient had to be neuromuscularly paralyzed due to high peak pressures and hypoventilation. Started on Bumex drip overnight. Currently on 70% fio2, 10 PEEP , due to severe hypoxia. BUN/Creat 108/5, but urine output is adequate on Bumex drip-Nephrology wants to wait 24 hours prior to HD. Chest exam reveals severe bilateral expiratory wheezing 12/18: Patient remains critically severely hypoxemic. Good response to Bumex gtt. 5.1 L urine output in 24 hours. BUN/creatinine trending down 99/4. Potassium being replaced. Continue to wean FiO2 as tolerated remains on 55% with 12 of PEEP. I will discontinue neuromuscular blockade today 12/19: Remains critically ill but stable. FiO2 remains at 50%, PEEP just earliest 8. Urine output more than 2 L on Bumex infusion but BUN is increased to 111 creatinine stable at 4. Discussed with nephrology DC Bumex infusion and start scheduled Bumex 1 mg every 8 hours 12/20: Requiring high FiO2 at 60% without improvement remains critically ill. Worsening BUN/creatinine today 136/4.6. Urine output 1 L in 24 hours. We'll start hemodialysis today after placing Vas-Cath. Patient not tolerating sedation vacation due to ventilator synchrony 12/21: Requiring heavy sedation for vent synchrony. FiO2 down to 40%, PEEP 8. HD started yesterday, repeat today. Creatinine slightly improved with dialysis 12/22: remaining encephalopathic. hypoxia somewhat improved. severely hypertensive despite medications. KAILEE persists on HD. volume overloaded. remaining critically ill with multiple organ systems involved and off pathway. 12/23: no significant improvements. HD yesterday with 2L net negative. encephalopathy persists. off versed. weaning propofol. failing SBT. Cr still elevated. still severely oliguric. 12/24: Despite negative fluid balance, still very critically ill, encephalopathic , and unable to tolerate SBT. Will likely require tracheostomy. 12/25: Patient remains critically ill encephalopathy. Intermittently but not consistently follows commands, appears very lethargic. BUN elevated to 138 today creatinine remained stable, patient is oliguric. Plan for HD today. I discussed with patient's daughter. Chance of successful extubation is slim, will proceed with tracheostomy tentatively planned for 12/26/1612/26: Patient is awake, but lethargic. With HD yesterday BUN improved to 98 from 138. Today Diffuse bilateral wheezing on exam. Chance of successful extubation minimal, vent day 13. Proceed with trach today. D/W pulmonology Dr. Oswald and he agrees with the plane. Daughter has consented and I have explained plan to patient who is also agreeable 12/27: Patient had tracheostomy placed yesterday. Tolerated procedure well. More awake and following commands. BUN has increased today to 105 creatinine 2.3. Nephrology planning on hemodialysis today. UO 2.2 L in 24 hours 12/28 Patient s/p PEG tube placement yesterday. On Ventilator via trach on Fentanyl infusion for sedation. Afebrile. Tolerated CPAP x 6 hrs yesterday. 12/29 No events overnight. Sedated with Fentanyl and on ventilator via trach. Tolerated CPAP all day yesterday. Afebrile. 12/30 Patient is off sedation tolerated TP 's with 50% FIO2 yesterday for several hrs kept ON CPAP overnight with PS 12, PEEP:8 and FIO2 40%. Afebrile. 12/31 No events overnight. Tolerated TP's for all day yesterday 01/01 Patient remains on ventilator via trach. On CPAP with PS 12, PEEP:5 and FIO2 35%. Afebrile. 01/02 Today off ventilator, sitting up in stretcher chair. Talking with Passy- [place] valve. Mild respiratory distress with talking 01/03: Afebrile. Currently on Passy-[place] valve. Only getting PT 2 days weekly. We'll increase to daily. Tolerating diet. No bowel movement yesterday. 01/04: No acute events overnight. Tolerating diet. Tolerating trach collar. Denies complaint to present time. 01/05: Placed on PSV overnight secondary dyspnea. Will transition back to trach collar trial today. Tolerating diet. Laboratories within normal limits. Receive alprazolam overnight for anxiety Subjective 01/06: Afebrile. On PSV overnight. Currently back on trach collar trials. Poor appetite. Objective Vital Signs Date Time Temp Pulse Resp B/P (MAP) Pulse Ox O2 Delivery O2 Flow Rate FiO2 01/06/17 10:10 96 T-piece 6.00 35 01/06/17 08:00 98.0 71 26 116/68 (84) Intake and Output 01/06/17 01/06/17 01/07/17 08:00 16:00 00:00 Intake Total 240 ml Output Total 850 ml Balance -610 ml Result Diagram: 01/05/17 0358 01/05/17 0358 Other Results Microbiology Date/Time Source Procedure Growth Status 12/15/16 05:03 Blood Peripheral Aerobic Blood Culture - Final NO GROWTH IN 5 DAYS Complete 12/15/16 05:03 Blood Peripheral Anaerobic Blood Culture - Final NO GROWTH IN 5 DAYS Complete 12/16/16 10:00 Sputum Endotracheal Gram Stain - Final Complete 12/16/16 10:00 Sputum Endotracheal Sputum Culture - Final LIGHT GROWTH NORMAL RESPIRATORY SLAVA Complete 01/02/17 17:30 Urine Catheterized Urine Urine Culture - Final Chaya Albicans Complete Imaging Last Impressions Chest X-Ray 12/30/16 0000 Signed Impressions: Service Date/Time: Friday, December 30, 2016 08:20 - CONCLUSION: No acute disease. Nirav Camacho MD Abdomen X-Ray 12/26/16 0000 Signed Impressions: Service Date/Time: Monday, December 26, 2016 21:33 - CONCLUSION: Nasogastric tube tip is at the gastric outlet. Nirav Savage MD Liver Ultrasound 12/16/16 0000 Signed Impressions: Service Date/Time: Friday, December 16, 2016 15:25 - CONCLUSION: 1. The liver is prominent with no focal lesion or ascites. 2. The right kidney is small and atrophic in appearance with cortical thinning and no hydronephrosis. There is increased echogenicity most characteristic of medical renal disease. Dylan Bryant MD Renal Ultrasound 12/14/16 0000 Signed Impressions: Service Date/Time: Wednesday, December 14, 2016 18:21 - CONCLUSION: Medical renal disease with echogenic kidneys. There is some atrophy of the right kidney. Nirav Camacho MD Head CT 12/14/16 0000 Signed Impressions: Service Date/Time: Wednesday, December 14, 2016 17:38 - CONCLUSION: Negative for an acute process. Sander Resendiz MD FACR Objective Remarks GENERAL: 60-year-old female currently resting in bed on ventilator via tracheostomy distress SKIN: Warm and dry. No rash. Poor skin turgor. HEAD: Atraumatic. Normocephalic. EYES: Pupils equal and round about 3 mm bilaterally and reactive. No scleral icterus. No injection or drainage. ENT: No nasal bleeding or discharge. Mucous membranes pink and moist. NECK: Trachea midline. JVD unable to assess due to obesity. Trach site C/D/I #8 [place] CARDIOVASCULAR: Regular rate and rhythm. S1, S2. No S4. RESPIRATORY: Diminished breath sounds throughout. Positive end expiratory wheezing. GASTROINTESTINAL: Abdomen soft, non-tender, protuberant. PEG tube site is clean dry and intact MUSCULOSKELETAL: Extremities without significant peripheral edema. No obvious deformities. NEUROLOGICAL: Alert awake, in bed. Cranial nerves II through XII grossly intact. Strength is 4+ out of 5 bilateral upper and lower extremities. No focal deficits A/P Assessment and Plan Neuro/Psych: Toxic metabolic Encephalopathy - likely metabolic/CO2 retention, resolved Restless leg syndrome Diabetic neuropathy Off sedation monitor neuro status. Awake and alert CT brain 12/14 revealed no acute intracranial findings Holding gabapentin 300 mg 3 times a day Resume gabapentin 01/06 at 100 milligrams 3 times a day Acetaminophen for fever when necessary Alprazolam 0.5 mg by mouth every 8 hours anxiety Continue tramadol 50 mg as needed for pain management CV: Hypertension History of hypertension History dyslipidemia Pulmonary hypertension likely type III secondary to COPD Monitor HR and BP keep MAP >65mmHg Continue hydralazine 100 3 times a day, Isordil 10 mg 3 times a day. Procardia 40mg every 8 hours, clonidine 0.3 milligram TID. Labetalol 200mg po q8hr. Breakthrough labetalol and hydralazine iv. (Home medications include lisinopril 5 mill grams daily, metoprolol 50 mill grams twice a day, clonidine 0.1 mg 3 times a day, nifedipine 60 mill grams every 12 hours, Imdur 30 mg daily and hydralazine 100 mg 3 times daily.) Echocardiogram 2015 EF 55-60%. No regional wall motion abnormality. LEXIE- 61 mmHg. Mild MR. Echocardiogram 12/14/16 - EF 65-70%. No regional wall motion abnormality. Hyperdynamic state Resp: Acute hypoxemic respiratory failure-resolved Severe COPD/O2 dependent, with acute exacerbation HERACLIO/no CPAP at home Probable community-acquired pneumonia s/p Trach 12/26. Tolerating trach collar talking with the Passy-Margaret valve Albuterol/ipratropium aerosols every 6 hours with albuterol for breakthrough every 2 hours when necessary Budesonide 0.5 mg/2 mL one inhalation twice a day CXR 12/30: No acute disease At home Anoro Ellipta 62.5/25 one inhalation daily has been resumed and Symbicort 160/4.5 2 puffs every 12 hours with as needed albuterol Pulm Dr. Noble GI: Elevated transaminases- resolved s/p PEG tube placement 12/27 Currently on oral diet Docusate sodium for bowel regimen. Avoid hepatotoxic medications. 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 Renal-Dr. Blackmon. Reginecath d/c 01/01 per renal. Renal ultrasound 12/14 indicative of medical renal disease with atrophied right kidney Continue Ca carbonate 500 mg every 12 hours. Calcitrol 0.25 mcg daily continue per nephrology. Heme: Normocytic anemia Leukopenia Monitor CBC ID: Probable community-acquired pneumonia UTI Urine cx 12/27: C. Albicans. Diflucan 100mg daily discontinue 01/05. s/p full course of abx(piperacillin/tazobactam and levofloxacin). UA negative/, sputum neg to date. Blood cultures 12/14 and 12/15 negative to date. Negative urine pneumococcal and Legionella antigens Monitor for signs of infections ( Fever, WBC) Access Peripheral IV's Prophylaxis - GI -pantoprazole - DVT - SCD/heparin subcutaneous Level 2 Evaluate for LTAC placement Joseph Reilly MD Jan 06, 2017 11:28
[2017-01-06] MEDS ORDERED: SODIUM CHLOR 0.45% 500 ML INJ 500 ML IV ONE (12:45)
[2017-01-06] MEDS: GABAPENTIN 100 MG CAP PO SCH ×2 (12:46→17:09)
--- NOTE | 2017-01-06 14:38 | HHI.NPPN ---
Subjective Renal Failure: Chronic, Acute History of Present Illness 60 y/o female pt with whom we follow in outpatient setting. PMH of COPD, HTN, DM and hyperlipidemia, she also has CKD IV , due to diabetic nephropathy. Her baseline creatinine measures 1.9, GFR 28. She came in for shortness of breath for days. Additional Remarks Patient is awake, breathing is improving, with Trach. collar, today feeling better. Review of Systems General Constitutional: Fatigue General Remarks generalized pain Respiratory Lungs: Wheeze Objective Data Data Vital Signs Date Time Temp Pulse Resp B/P (MAP) Pulse Ox O2 Delivery O2 Flow Rate FiO2 01/06/17 10:10 96 T-piece 6.00 35 01/06/17 08:00 40 01/06/17 08:00 98.0 71 26 116/68 (84) 97 01/06/17 07:45 99 40 01/06/17 04:00 98.8 75 20 132/78 (96) 93 01/06/17 04:00 75 01/06/17 02:00 73 01/06/17 00:00 68 01/06/17 00:00 98.2 68 18 122/68 (86) 96 01/05/17 22:00 75 01/05/17 21:26 98 Trach Collar 10.00 40 01/05/17 20:00 73 01/05/17 20:00 98.5 73 22 131/77 (95) 93 01/05/17 18:00 72 01/05/17 16:00 73 01/05/17 16:00 98.2 73 31 111/67 (82) 97 -: 01/05/17 0358 01/05/17 0358 Tubes & Lines: Vas-Cath, [place] Physical Exam General Appearance: Well Developed, No Acute Distress, Comfortable, Obese Eyes Eye Exam: Pupils Equal Throat Throat Exam: Oral Mucosa [place] & Moist Neck Neck Exam: Neck Supple Pulmonary Resp Exam: Breath Sounds Equal, No Distress, Diminished Breath Sounds Cardiology CV Exam: Regular, Normal Sinus Rhythm Gastrointestinal/Abdomen GI Exam: Soft, Non-Tender, Bowel Sounds Present Musculoskeletal MS Exam: Joints Intact, Normal Tone, Unable to Ambulate Integumentary Skin Exam: Clear, Warm, Dry Extremeties Extremities Exam: Trace Edema Neurologic Neuro Exam: Alert, Awake, Oriented Psychiatric Psych Exam: Appropriate Responses VTE Prophylaxis Device: SCDs Assessment/Plan Discussed Condition With: Patient Assessment Summary: KAILEE/Acute Renal Failure, Acute Tubular Necrosis, Fluid/ Volume Overload, Hypertension, Diabetes Mellitus Electrolyte Assessment: Hypocalcemia Problem List: (1) Acute renal failure ICD Codes: N17.9 - Acute kidney failure, unspecified Status: Acute Plan: 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 Renal function returned to baseline. she has excellent urine output. She is on steroids which may be contributing to high BUN. Continue taper down Prednisone as tolerated. Avoid nephrotoxic agents. Follow the urine out put and BMP. No new BMP, Dr. Blackmon will follow from tomorrow. (2) HCAP (healthcare-associated pneumonia) ICD Codes: J18.9 - Healthcare-associated pneumonia Status: Acute Plan: On solumedrol, she is off antibiotics. Monitor clinically (3) Acute respiratory failure ICD Codes: J96.00 - Acute respiratory failure Status: Acute Plan: . S/p tracheostomy 12/26 she is off the vent; has P Valve in place improving, monitor will need rehab after discharge (4) DM (diabetes mellitus) ICD Codes: E11.9 - Type 2 diabetes mellitus without complications Status: Chronic Plan: continue insulin therapy goal 140-180 mg/dL (5) Hypocalcemia ICD Codes: E83.51 - Hypocalcemia Plan: PTH is high due to secondary hyperparathyroidism On Calcitriol and Vitamin D3. Hypocalcemia has corrected Problem Qualifiers (1) Acute renal failure: Qualified Codes: N17.9 - Acute kidney failure, unspecified (2) Acute respiratory failure: Qualified Codes: J96.01 - Acute respiratory failure with hypoxia; J96.02 - Acute respiratory failure with hypercapnia (3) DM (diabetes mellitus): Qualified Codes: E13.9 - Other specified diabetes mellitus without complications Thomas Hines MD Jan 06, 2017 14:38
[2017-01-07] VITALS (16 sets, daily range): BP systolic 94–151; BP diastolic 51–94; PULSE 68–79; RESP 22–54; TEMP 97.7–99.8; O2SAT 94–99
[2017-01-07] MEDS: CHLORHEXIDINE GLUCONATE 2 % 1 PACK (2 CLOTHS) TOP SCH (01:14)
[2017-01-07] MEDS: HEPARIN SODIUM - SQ 10,000 UNITS/ML VIAL SQ SCH ×2 (01:38→12:38)
[2017-01-07] MEDS: INSULIN NovoLIN REGULAR SUPPLEMENTAL SCALE SQ SCH ×4 (03:00→21:00)
[2017-01-07] MEDS: LABETALOL HCL 200 MG TAB PO SCH ×3 (04:08→21:13)
--- NOTE | 2017-01-07 05:51 | RADRPT ---
EXAM DATE/TIME: 01/07/2017 04:02 [facility] COMPARISON: CHEST SINGLE AP, December 30, 2016, 8:20. INDICATIONS : Shortness of breath, possible pulmonary disease. MEDICAL HISTORY : Chronic obstructive pulmonary disease. Renal insufficiency. SURGICAL HISTORY : Hysterectomy. Tonsillectomy. Fusion, lumbar. Tracheostomy ENCOUNTER: Subsequent ACUITY: 3 weeks PAIN SCORE: Non-responsive. LOCATION: Bilateral chest FINDINGS: A single view of the chest demonstrates tracheostomy in good position. Subsegmental basilar airspace disease increased from December 30. Cardiomegaly. Trace pleural fluid. No pneumothorax. CONCLUSION: 1. Tracheostomy in good position. Subsegmental basilar airspace disease increased from December 30. Freddie Tubbs MD on January 07, 2017 at 5:49 Board Certified Radiologist. This report was verified electronically.
[2017-01-07] MEDS: NIFEdipine 20 MG CAP PO SCH ×3 (06:50→23:22)
[2017-01-07] MEDS: hydrALAZINE HCL 100 MG TAB PO SCH ×3 (06:50→23:22)
[2017-01-07] MEDS: ISOSORBIDE DINITRATE 10 MG TAB PO SCH ×3 (06:50→23:22)
[2017-01-07] MEDS: cloNIDine HCL 0.3 MG TAB PO SCH ×3 (06:50→23:22)
[2017-01-07] MEDS: RESP: ALBUTEROL 2.5 MG/IPRATROPIUM 0.5 MG NEB (SCH) INH ×3 (07:55→15:15)
[2017-01-07] MEDS: RESP: BUDESONIDE 0.5 MG/2 ML NEB NEB SCH ×2 (07:55→21:31)
[2017-01-07] MEDS: CHLORHEXIDINE 0.12% (ORAL KIT) 15 ML CUP MT SCH ×2 (08:00→20:00)
[2017-01-07] MEDS: predniSONE 10 MG TAB PO SCH (08:31)
[2017-01-07] MEDS: GABAPENTIN 100 MG CAP PO SCH ×3 (08:31→18:17)
[2017-01-07] MEDS: CHOLECALCIFEROL (VIT D3) 1000 UNIT TAB NG SCH (08:31)
[2017-01-07] MEDS: CALCIUM CARBONATE 1.25 GM (CA 500 MG) TAB PO SCH ×2 (08:31→21:13)
[2017-01-07] MEDS: DOCUSATE SODIUM 100 MG/10 ML UDC PO SCH ×2 (08:31→21:00)
[2017-01-07] MEDS: CALCITRIOL 0.25 MCG CAP NG SCH (08:31)
[2017-01-07] MEDS: PANTOPRAZOLE SOD 20 MG DELAYED RELEASE TAB PO SCH (08:31)
[2017-01-07] MEDS: SODIUM CHLORIDE 0.9% FLUSH 10 ML FLUSH IV FLUSH SCH ×2 (08:32→21:13)
[2017-01-07] MEDS: SODIUM CHLORIDE 0.9% FLUSH 10 ML FLUSH IVF SCH (08:32)
[2017-01-07] MEDS: UMECLIDINIUM 62.5 MCG/VILANTEROL 25 MCG INHALER INH SCH (09:00)
[2017-01-07 09:05] LABS: HEMATOCRIT 22.8 % (35.0-46.0); MEAN CELL VOLUME 89.8 FL (80.0-100.0); MEAN CORPUSCULAR HEMOGLOBIN 30.1 PG (27.0-34.0); MEAN CORPUSCULAR HGB CONC 33.6 % (32.0-36.0); PLATELET COUNT 209 TH/MM3 (150-450); RED BLOOD COUNT 2.54 MIL/MM3 (4.00-5.30); RED CELL DISTRIBUTION WIDTH 15.4 % (11.6-17.2); REVIEW FLAG FINAL; WHITE BLOOD COUNT 5.2 TH/MM3 (4.0-11.0)
--- NOTE | 2017-01-07 09:36 | HHI.CCPN ---
Subjective Remarks/Hospital Course 61-year-old female. Date of admission 12/14/2016. Past records includes COPD/oxygen dependent, obstructive sleep apnea not using nocturnal CPAP , hypertension, morbid obesity. Hypertension, chronic kidney disease stage IV. She presents to [facility] 2 day history of shortness of breath. She is essentially in extremis 100 hour troponin emergency report. She is immediately placed on BiPAP however failed and was emergently endotracheally intubated. She required 100% FiO2 and was intermittently hypotensive the ED. CT head negative. Chest x-ray revealed possible vascular congestion. She is also noted of a calcium of 5.0. Elevated creatinine 5.1 with a baseline 1.9. she received 2 g calcium chloride and she received 20 mg IV Lasix. Raimann Machine Operator discontinued IV fluids and starting Bumex at 2 mg IV twice a day. 2-D echocardiogram revealed hyperdynamic state with EF of 65-70%. 12/15: - Afebrile. Off all vasopressors. 700 cc urine overnight. She is responding to fluids. Currently on midazolam drip. We'll attempt sedation vacation today if FiO2 decreased to around 50%. 12/16: Afebrile. Off all vasopressors. 1300 cc urine output past 24 hours. Nonoliguric. Currently on Versed and fentanyl drips. Moving all 4 extremities spontaneous. Will briefly attempt sedation vacation day but resedate BRIANA. 12/17: Patient had to be neuromuscularly paralyzed due to high peak pressures and hypoventilation. Started on Bumex drip overnight. Currently on 70% fio2, 10 PEEP , due to severe hypoxia. BUN/Creat 108/5, but urine output is adequate on Bumex drip-Nephrology wants to wait 24 hours prior to HD. Chest exam reveals severe bilateral expiratory wheezing 12/18: Patient remains critically severely hypoxemic. Good response to Bumex gtt. 5.1 L urine output in 24 hours. BUN/creatinine trending down 99/4. Potassium being replaced. Continue to wean FiO2 as tolerated remains on 55% with 12 of PEEP. I will discontinue neuromuscular blockade today 12/19: Remains critically ill but stable. FiO2 remains at 50%, PEEP just earliest 8. Urine output more than 2 L on Bumex infusion but BUN is increased to 111 creatinine stable at 4. Discussed with nephrology DC Bumex infusion and start scheduled Bumex 1 mg every 8 hours 12/20: Requiring high FiO2 at 60% without improvement remains critically ill. Worsening BUN/creatinine today 136/4.6. Urine output 1 L in 24 hours. We'll start hemodialysis today after placing Vas-Cath. Patient not tolerating sedation vacation due to ventilator synchrony 12/21: Requiring heavy sedation for vent synchrony. FiO2 down to 40%, PEEP 8. HD started yesterday, repeat today. Creatinine slightly improved with dialysis 12/22: remaining encephalopathic. hypoxia somewhat improved. severely hypertensive despite medications. KAILEE persists on HD. volume overloaded. remaining critically ill with multiple organ systems involved and off pathway. 12/23: no significant improvements. HD yesterday with 2L net negative. encephalopathy persists. off versed. weaning propofol. failing SBT. Cr still elevated. still severely oliguric. 12/24: Despite negative fluid balance, still very critically ill, encephalopathic , and unable to tolerate SBT. Will likely require tracheostomy. 12/25: Patient remains critically ill encephalopathy. Intermittently but not consistently follows commands, appears very lethargic. BUN elevated to 138 today creatinine remained stable, patient is oliguric. Plan for HD today. I discussed with patient's daughter. Chance of successful extubation is slim, will proceed with tracheostomy tentatively planned for 12/26/1612/26: Patient is awake, but lethargic. With HD yesterday BUN improved to 98 from 138. Today Diffuse bilateral wheezing on exam. Chance of successful extubation minimal, vent day 13. Proceed with trach today. D/W pulmonology Dr. Oswald and he agrees with the plane. Daughter has consented and I have explained plan to patient who is also agreeable 12/27: Patient had tracheostomy placed yesterday. Tolerated procedure well. More awake and following commands. BUN has increased today to 105 creatinine 2.3. Nephrology planning on hemodialysis today. UO 2.2 L in 24 hours 12/28 Patient s/p PEG tube placement yesterday. On Ventilator via trach on Fentanyl infusion for sedation. Afebrile. Tolerated CPAP x 6 hrs yesterday. 12/29 No events overnight. Sedated with Fentanyl and on ventilator via trach. Tolerated CPAP all day yesterday. Afebrile. 12/30 Patient is off sedation tolerated TP 's with 50% FIO2 yesterday for several hrs kept ON CPAP overnight with PS 12, PEEP:8 and FIO2 40%. Afebrile. 12/31 No events overnight. Tolerated TP's for all day yesterday 01/01 Patient remains on ventilator via trach. On CPAP with PS 12, PEEP:5 and FIO2 35%. Afebrile. 01/02 Today off ventilator, sitting up in stretcher chair. Talking with Passy- Finley valve. Mild respiratory distress with talking 01/03: Afebrile. Currently on Passy-Margaret valve. Only getting PT 2 days weekly. We'll increase to daily. Tolerating diet. No bowel movement yesterday. 01/04: No acute events overnight. Tolerating diet. Tolerating trach collar. Denies complaint to present time. 01/05: Placed on PSV overnight secondary dyspnea. Will transition back to trach collar trial today. Tolerating diet. Laboratories within normal limits. Receive alprazolam overnight for anxiety Subjective 01/06: Afebrile. On PSV overnight. Currently back on trach collar trials. Poor appetite. 01/07 No events overnight. On PS 12, PEEP:5 and 40% FIO2. Afebrile. Objective Vital Signs Date Time Temp Pulse Resp B/P (MAP) Pulse Ox O2 Delivery O2 Flow Rate FiO2 01/07/17 07:55 95 40 01/07/17 06:00 71 01/07/17 04:00 98.4 22 151/80 (103) 01/06/17 21:33 Trach Collar 8.00 Intake and Output 01/07/17 01/07/17 01/08/17 08:00 16:00 00:00 Intake Total 240 ml Output Total 775 ml Balance -535 ml Result Diagram: 01/07/17 0838 01/05/17 0358 Other Results Laboratory Tests Test 01/07/17 08:38 White Blood Count 5.2 TH/MM3 Red Blood Count 2.54 MIL/MM3 Hemoglobin 7.7 GM/DL Hematocrit 22.8 % Mean Corpuscular Volume 89.8 FL Mean Corpuscular Hemoglobin 30.1 PG Mean Corpuscular Hemoglobin Concent 33.6 % Red Cell Distribution Width 15.4 % Platelet Count 209 TH/MM3 Mean Platelet Volume 6.7 FL Imaging Last Impressions Chest X-Ray 01/07/17 0600 Signed Impressions: Service Date/Time: Saturday, January 07, 2017 04:02 - CONCLUSION: 1. Tracheostomy in good position. Subsegmental basilar airspace disease increased from December 30. Freddie Tubbs MD Abdomen X-Ray 12/26/16 0000 Signed Impressions: Service Date/Time: Monday, December 26, 2016 21:33 - CONCLUSION: Nasogastric tube tip is at the gastric outlet. Nirav Savage MD Liver Ultrasound 12/16/16 0000 Signed Impressions: Service Date/Time: Friday, December 16, 2016 15:25 - CONCLUSION: 1. The liver is prominent with no focal lesion or ascites. 2. The right kidney is small and atrophic in appearance with cortical thinning and no hydronephrosis. There is increased echogenicity most characteristic of medical renal disease. Dylan Bryant MD Renal Ultrasound 12/14/16 0000 Signed Impressions: Service Date/Time: Wednesday, December 14, 2016 18:21 - CONCLUSION: Medical renal disease with echogenic kidneys. There is some atrophy of the right kidney. Nirav Camacho MD Head CT 12/14/16 0000 Signed Impressions: Service Date/Time: Wednesday, December 14, 2016 17:38 - CONCLUSION: Negative for an acute process. Sander Resendiz MD FACR Objective Remarks GENERAL: 60-year-old female currently resting in bed on ventilator via tracheostomy distress SKIN: Warm and dry. No rash. Poor skin turgor. HEAD: Atraumatic. Normocephalic. EYES: Pupils equal and round about 3 mm bilaterally and reactive. No scleral icterus. No injection or drainage. ENT: No nasal bleeding or discharge. Mucous membranes pink and moist. NECK: Trachea midline. JVD unable to assess due to obesity. Trach site C/D/I #8 Shiley CARDIOVASCULAR: Regular rate and rhythm. S1, S2. No S4. RESPIRATORY: Diminished breath sounds throughout. Positive end expiratory wheezing. GASTROINTESTINAL: Abdomen soft, non-tender, protuberant. PEG tube site is clean dry and intact MUSCULOSKELETAL: Extremities without significant peripheral edema. No obvious deformities. NEUROLOGICAL: Alert awake, in bed. Cranial nerves II through XII grossly intact. Strength is 4+ out of 5 bilateral upper and lower extremities. No focal deficits A/P Assessment and Plan Neuro/Psych: Toxic metabolic Encephalopathy - likely metabolic/CO2 retention, resolved Restless leg syndrome Diabetic neuropathy Off sedation monitor neuro status. Awake and alert CT brain 12/14 revealed no acute intracranial findings Holding gabapentin 300 mg 3 times a day Resume gabapentin 01/06 at 100 milligrams 3 times a day Acetaminophen for fever when necessary Alprazolam 0.5 mg by mouth every 8 hours anxiety Continue tramadol 50 mg as needed for pain management CV: Hypertension History of hypertension History dyslipidemia Pulmonary hypertension likely type III secondary to COPD Monitor HR and BP keep MAP >65mmHg Continue hydralazine 100 3 times a day, Isordil 10 mg 3 times a day. Procardia 40mg every 8 hours, clonidine 0.3 milligram TID. Labetalol 200mg po q8hr. Breakthrough labetalol and hydralazine iv. (Home medications include lisinopril 5 mill grams daily, metoprolol 50 mill grams twice a day, clonidine 0.1 mg 3 times a day, nifedipine 60 mill grams every 12 hours, Imdur 30 mg daily and hydralazine 100 mg 3 times daily.) Echocardiogram 2015 EF 55-60%. No regional wall motion abnormality. LEXIE- 61 mmHg. Mild MR. Echocardiogram 12/14/16 - EF 65-70%. No regional wall motion abnormality. Hyperdynamic state Resp: Acute hypoxemic respiratory failure-resolved Severe COPD/O2 dependent, with acute exacerbation HERACLIO/no CPAP at home Probable community-acquired pneumonia s/p Trach 12/26. Tolerating trach collar talking with the Passy-Finley valve Albuterol/ipratropium aerosols every 6 hours with albuterol for breakthrough every 2 hours when necessary Budesonide 0.5 mg/2 mL one inhalation twice a day Prednisone 10mg daily At home Anoro Ellipta 62.5/25 one inhalation daily has been resumed and Symbicort 160/4.5 2 puffs every 12 hours with as needed albuterol Pulm Dr. Noble GI: Elevated transaminases- resolved s/p PEG tube placement 12/27 Currently on oral diet Docusate sodium for bowel regimen. Avoid hepatotoxic medications. 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 Renal-Dr. Blackmon. Marco d/c 01/01 per renal. Renal ultrasound 12/14 indicative of medical renal disease with atrophied right kidney Continue Ca carbonate 500 mg every 12 hours. Calcitrol 0.25 mcg daily continue per nephrology. Heme: Normocytic anemia Leukopenia Monitor CBC ID: Probable community-acquired pneumonia UTI Urine cx 12/27: C. Albicans. Diflucan 100mg daily discontinue 01/05. s/p full course of abx(piperacillin/tazobactam and levofloxacin). UA negative/, sputum neg to date. Blood cultures 12/14 and 12/15 negative to date. Negative urine pneumococcal and Legionella antigens Monitor for signs of infections ( Fever, WBC) Access Peripheral IV's Prophylaxis - GI -pantoprazole - DVT - SCD/heparin subcutaneous Level 2 Evaluate for LTAC placement- Patient was rejected by [facility]. Cam Elkins MD Jan 07, 2017 09:36
--- NOTE | 2017-01-07 09:47 | HHI.NPPN ---
Subjective Renal Failure: Chronic, Acute Interval History Being transferred to a chair. She had a good night, ate most of her meal. Labs in process. (Tootie Grant) Review of Systems General Constitutional: Fatigue General Remarks generalized pain (Tootie Grant) Respiratory Lungs: Wheeze (Tootie Grant) Objective Data Data Vital Signs Date Time Temp Pulse Resp B/P (MAP) Pulse Ox O2 Delivery O2 Flow Rate FiO2 01/07/17 07:55 95 40 01/07/17 06:00 71 01/07/17 06:00 69 01/07/17 04:00 40 01/07/17 04:00 71 01/07/17 04:00 98.4 71 22 151/80 (103) 99 01/07/17 02:00 71 01/07/17 01:39 40 01/07/17 01:30 98 40 01/07/17 00:00 98.2 73 24 140/75 (96) 96 01/07/17 00:00 73 01/06/17 22:00 75 01/06/17 21:33 96 Trach Collar 8.00 35 01/06/17 20:00 98.1 76 32 127/67 (87) 96 01/06/17 20:00 76 01/06/17 16:00 72 01/06/17 16:00 98.4 72 27 124/64 (84) 95 01/06/17 14:00 69 01/06/17 12:00 98.6 84 37 141/71 (94) 97 01/06/17 12:00 84 01/06/17 10:10 96 T-piece 6.00 35 01/06/17 10:00 78 (Tootie Grant) -: 01/07/17 0838 01/05/17 0358 Imaging Last Impressions Chest X-Ray 01/07/17 0600 Signed Impressions: Service Date/Time: Saturday, January 07, 2017 04:02 - CONCLUSION: 1. Tracheostomy in good position. Subsegmental basilar airspace disease increased from December 30. Freddie Tubbs MD Abdomen X-Ray 12/26/16 0000 Signed Impressions: Service Date/Time: Monday, December 26, 2016 21:33 - CONCLUSION: Nasogastric tube tip is at the gastric outlet. Nirav Savage MD Liver Ultrasound 12/16/16 0000 Signed Impressions: Service Date/Time: Friday, December 16, 2016 15:25 - CONCLUSION: 1. The liver is prominent with no focal lesion or ascites. 2. The right kidney is small and atrophic in appearance with cortical thinning and no hydronephrosis. There is increased echogenicity most characteristic of medical renal disease. Dylan Bryant MD Renal Ultrasound 12/14/16 0000 Signed Impressions: Service Date/Time: Wednesday, December 14, 2016 18:21 - CONCLUSION: Medical renal disease with echogenic kidneys. There is some atrophy of the right kidney. Nirav Camacho MD Head CT 12/14/16 0000 Signed Impressions: Service Date/Time: Wednesday, December 14, 2016 17:38 - CONCLUSION: Negative for an acute process. Sander Resendiz MD FACR Tubes & Lines: Vas-Cath, Raphael (Tootie Grant B. COMPUTER SCIENCE INSTRUCTOR) Physical Exam General Appearance: Well Developed, No Acute Distress, Comfortable, Obese (Tootie Grant B. COMPUTER SCIENCE INSTRUCTOR) Eyes Eye Exam: Pupils Equal (Tootie Grant B. COMPUTER SCIENCE INSTRUCTOR) Throat Throat Exam: Oral Mucosa [place] & Moist Throat Remarks trach (Tootie Grant B. COMPUTER SCIENCE INSTRUCTOR) Neck Neck Exam: Neck Supple (Easton Granton B. COMPUTER SCIENCE INSTRUCTOR) Pulmonary Resp Exam: Breath Sounds Equal, No Distress, Crackles, Diminished Breath Sounds (Easton Granton B. COMPUTER SCIENCE INSTRUCTOR) Cardiology CV Exam: Regular, Normal Sinus Rhythm (Tootie Grant B. COMPUTER SCIENCE INSTRUCTOR) Gastrointestinal/Abdomen GI Exam: Soft, Non-Tender, Bowel Sounds Present GI Remarks + PEG (Tootie Grant B. COMPUTER SCIENCE INSTRUCTOR) Musculoskeletal MS Exam: Joints Intact, Normal Tone, Unable to Ambulate (Tootie Grant B. COMPUTER SCIENCE INSTRUCTOR) Integumentary Skin Exam: Clear, Warm, Dry (Tootie Grant B. COMPUTER SCIENCE INSTRUCTOR) Extremeties Extremities Exam: No Edema, Pedal Pulses Palpable (Tootie Grant B. COMPUTER SCIENCE INSTRUCTOR) Neurologic Neuro Exam: Alert, Awake, Oriented, Speech Clear, Moving All Extremities (Tootie Grant B. COMPUTER SCIENCE INSTRUCTOR) Psychiatric Psych Exam: Appropriate Responses (Tootie Grant) VTE Prophylaxis Device: SCDs (Tootie Grant) Assessment/Plan Discussed Condition With: Patient Assessment Summary: KAILEE/Acute Renal Failure, Acute Tubular Necrosis, Fluid/ Volume Overload, Hypertension, Diabetes Mellitus Problem List: (1) Acute renal failure ICD Codes: N17.9 - Acute kidney failure, unspecified Status: Acute Plan: 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 Renal function returned to baseline. Today's labs in process. Her urine output is excellent. Remove raphael catheter today. She is on steroids which may be contributing to high BUN. Continue taper down Prednisone as tolerated. Avoid nephrotoxic agents. (2) HCAP (healthcare-associated pneumonia) ICD Codes: J18.9 - Healthcare-associated pneumonia Status: Acute Plan: Off solumedrol, she is also off antibiotics. Monitor clinically (3) Acute respiratory failure ICD Codes: J96.00 - Acute respiratory failure Status: Acute Plan: . S/p tracheostomy 12/26 she is off the vent; has P Valve in place improving, monitor will need rehab after discharge (4) DM (diabetes mellitus) ICD Codes: E11.9 - Type 2 diabetes mellitus without complications Status: Chronic Plan: continue insulin therapy goal 140-180 mg/dL (5) Hypocalcemia ICD Codes: E83.51 - Hypocalcemia Plan: PTH is high due to secondary hyperparathyroidism On Calcitriol and Vitamin D3. Hypocalcemia has corrected (Tootie Grant) Plan patient was seen and examined. Agree with above assessment and plan. (Thomas Blackmon MD) Problem Qualifiers (1) Acute renal failure: Qualified Codes: N17.9 - Acute kidney failure, unspecified (2) Acute respiratory failure: Qualified Codes: J96.01 - Acute respiratory failure with hypoxia; J96.02 - Acute respiratory failure with hypercapnia (3) DM (diabetes mellitus): Qualified Codes: E13.9 - Other specified diabetes mellitus without complications Tootie Grant Jan 07, 2017 09:47 Thomas Blackmon MD Jan 07, 2017 11:15
[2017-01-07 10:13] LABS: POTASSIUM 4.1 MEQ/L (3.5-5.1)
[2017-01-07] MEDS: ALPRAZolam 0.5 MG TAB PO PRN ×2 (12:38→23:22)
[2017-01-07] MEDS: RESP: ALBUTEROL 2.5 MG/3 ML NEB (PRN) INH (21:31)
[2017-01-08] VITALS (14 sets, daily range): BP systolic 105–144; BP diastolic 60–80; PULSE 71–80; RESP 24–50; TEMP 98.3–98.5; O2SAT 92–99
[2017-01-08] MEDS: RESP: ALBUTEROL 2.5 MG/3 ML NEB (PRN) INH (00:14)
[2017-01-08] MEDS: HEPARIN SODIUM - SQ 10,000 UNITS/ML VIAL SQ SCH ×2 (02:26→15:12)
[2017-01-08] MEDS: INSULIN NovoLIN REGULAR SUPPLEMENTAL SCALE SQ SCH ×4 (02:26→20:52)
[2017-01-08] MEDS: CHLORHEXIDINE GLUCONATE 2 % 1 PACK (2 CLOTHS) TOP SCH (04:00)
[2017-01-08 04:11] LABS: BLOOD, URINE NEG (NEG); GLUCOSE,URINE NEG (NEG); KETONE, URINE NEG (NEG); NITRITE,URINE NEG (NEG); PH, URINE 6.5 (5.0-8.5); URINE COLOR LIGHT-YELLOW (YELLW/STRAW)
[2017-01-08 04:16] LABS: COMMENT (UR) CATH-CULT NOT IND; CULTURE IF INDICATED CATH CULTURE NOT IND
[2017-01-08 06:02] LABS: AUTOMATED NEUTROPHIL # 2.9 TH/MM3 (1.8-7.7); BASOPHIL % 0.5 % (0.0-2.0); EOSINOPHIL # 0.1 TH/MM3 (0-0.4); EOSINOPHIL % 2.9 % (0.0-4.0); HEMATOCRIT 23.2 % (35.0-46.0); LYMPH % 24.5 % (9.0-44.0); LYMPHOCYTE # 1.1 TH/MM3 (1.0-4.8); MEAN CELL VOLUME 90.6 FL (80.0-100.0); MEAN CORPUSCULAR HEMOGLOBIN 30.7 PG (27.0-34.0); MEAN CORPUSCULAR HGB CONC 33.9 % (32.0-36.0); MONO % 6.4 % (0.0-8.0); NEUT % 65.7 % (16.0-70.0); PLATELET COUNT 207 TH/MM3 (150-450); RED BLOOD COUNT 2.57 MIL/MM3 (4.00-5.30); RED CELL DISTRIBUTION WIDTH 15.7 % (11.6-17.2); WHITE BLOOD COUNT 4.5 TH/MM3 (4.0-11.0)
[2017-01-08] MEDS: hydrALAZINE HCL 100 MG TAB PO SCH ×3 (06:03→20:54)
[2017-01-08] MEDS: ISOSORBIDE DINITRATE 10 MG TAB PO SCH ×3 (06:03→20:54)
[2017-01-08] MEDS: LABETALOL HCL 200 MG TAB PO SCH ×3 (06:03→20:52)
[2017-01-08] MEDS: NIFEdipine 20 MG CAP PO SCH ×3 (06:03→20:54)
[2017-01-08] MEDS: cloNIDine HCL 0.3 MG TAB PO SCH ×3 (06:03→20:54)
[2017-01-08 06:05] LABS: HEMO FLAGS AUTO DIFF
[2017-01-08 06:24] LABS: BICARBONATE 24.8 MEQ/L (21.0-32.0); POTASSIUM 4.1 MEQ/L (3.5-5.1)
[2017-01-08 08:17] LABS: SCAN/DIFF AUTO DIFF CONFIRMED
[2017-01-08] MEDS: RESP: BUDESONIDE 0.5 MG/2 ML NEB NEB SCH ×2 (08:36→21:20)
[2017-01-08] MEDS: SODIUM CHLORIDE 0.9% FLUSH 10 ML FLUSH IVF SCH (09:00)
[2017-01-08] MEDS: UMECLIDINIUM 62.5 MCG/VILANTEROL 25 MCG INHALER INH SCH (09:00)
--- NOTE | 2017-01-08 09:18 | HHI.GIFU ---
Subjective Remarks Pt had small dark tarry stool, with slight maroon tint. She denies any nausea, vomiting, or abdominal pain. Her H/H seems to be stable. Flushed and aspirated from PEG tube- no blood in return, just clear secretions. She was placed on Passey Darvin and almost immediately had difficulty breathing/ respiratory distress/wheezing. Received aerosol tx and respiratory in to place back Tbar. She states her last colonoscopy was 2 years ago and was normal without any polyps. (Callie Sims) Objective Vitals I&O Vital Signs Date Time Temp Pulse Resp B/P (MAP) Pulse Ox O2 Delivery O2 Flow Rate FiO2 01/08/17 08:43 97 Trach Collar 5.00 40 01/08/17 06:00 75 01/08/17 04:00 98.3 72 24 144/67 (92) 92 01/08/17 04:00 72 01/08/17 02:00 71 01/08/17 00:00 80 01/08/17 00:00 98.5 80 50 140/80 (100) 95 01/07/17 22:00 79 01/07/17 21:38 95 Trach Collar 40 01/07/17 20:00 98.1 78 54 141/94 (110) 96 01/07/17 20:00 78 01/07/17 18:00 76 01/07/17 17:00 95 6.00 40 01/07/17 16:00 76 01/07/17 16:00 97.7 68 24 124/65 (84) 94 01/07/17 14:00 72 01/07/17 12:00 72 01/07/17 12:00 98.2 72 41 94/51 (65) 95 01/07/17 10:00 75 I/O 01/07/17 01/07/17 01/07/17 01/08/17 01/08/17 01/08/17 07:00 15:00 23:00 07:00 15:00 23:00 Intake Total 240 ml 480 ml 480 ml Output Total 775 ml 700 ml 1250 ml Balance -535 ml -220 ml -770 ml Intake Oral 240 ml 480 ml 480 ml Output Urine Total 775 ml 700 ml 1250 ml Bladder Scan Volume Amount 310 ml 310 ml 642 ml # Bowel Movements 0 Laboratory Laboratory Tests Test 01/08/17 02:46 01/08/17 05:08 Urine Color LIGHT-YELLOW Urine Turbidity CLEAR Urine pH 6.5 Urine Specific [place] 1.006 Urine Protein TRACE Urine Glucose (UA) NEG Urine Ketones NEG Urine Occult Blood NEG Urine Nitrite NEG Urine Bilirubin NEG Urine Urobilinogen LESS THAN 2.0 Urine Leukocyte Esterase NEG Urine WBC LESS THAN 1 Microscopic Urinalysis Comment CATH-CULT NOT IND White Blood Count 4.5 Red Blood Count 2.57 Hemoglobin 7.9 Hematocrit 23.2 Mean Corpuscular Volume 90.6 Mean Corpuscular Hemoglobin 30.7 Mean Corpuscular Hemoglobin Concent 33.9 Red Cell Distribution Width 15.7 Platelet Count 207 Mean Platelet Volume 7.2 Neutrophils (%) (Auto) 65.7 Lymphocytes (%) (Auto) 24.5 Monocytes (%) (Auto) 6.4 Eosinophils (%) (Auto) 2.9 Basophils (%) (Auto) 0.5 Neutrophils # (Auto) 2.9 Lymphocytes # (Auto) 1.1 Monocytes # (Auto) 0.3 Eosinophils # (Auto) 0.1 Basophils # (Auto) 0.0 CBC Comment AUTO DIFF Differential Comment AUTO DIFF CONFIRMED Blood Urea Nitrogen 33 Creatinine 1.93 Random Glucose 112 Calcium Level 9.3 Phosphorus Level 3.8 Magnesium Level 2.0 Sodium Level 138 Potassium Level 4.1 Chloride Level 104 Carbon Dioxide Level 24.8 Anion Gap 9 Estimat Glomerular Filtration Rate 26 Date/Time Source Procedure Growth Status 12/15/16 05:03 Blood Peripheral Aerobic Blood Culture - Final NO GROWTH IN 5 DAYS Complete 12/15/16 05:03 Blood Peripheral Anaerobic Blood Culture - Final NO GROWTH IN 5 DAYS Complete 12/16/16 10:00 Sputum Endotracheal Gram Stain - Final Complete 12/16/16 10:00 Sputum Endotracheal Sputum Culture - Final LIGHT GROWTH NORMAL RESPIRATORY SLAVA Complete 01/02/17 17:30 Urine Catheterized Urine Urine Culture - Final Chaya Albicans Complete Imaging Last Impressions Chest X-Ray 01/07/17 0600 Signed Impressions: Service Date/Time: Saturday, January 07, 2017 04:02 - CONCLUSION: 1. Tracheostomy in good position. Subsegmental basilar airspace disease increased from December 30. Freddie Tubbs MD Abdomen X-Ray 12/26/16 0000 Signed Impressions: Service Date/Time: Monday, December 26, 2016 21:33 - CONCLUSION: Nasogastric tube tip is at the gastric outlet. Nirav Savage MD Liver Ultrasound 12/16/16 0000 Signed Impressions: Service Date/Time: Friday, December 16, 2016 15:25 - CONCLUSION: 1. The liver is prominent with no focal lesion or ascites. 2. The right kidney is small and atrophic in appearance with cortical thinning and no hydronephrosis. There is increased echogenicity most characteristic of medical renal disease. Dylan Bryant MD Renal Ultrasound 12/14/16 0000 Signed Impressions: Service Date/Time: Wednesday, December 14, 2016 18:21 - CONCLUSION: Medical renal disease with echogenic kidneys. There is some atrophy of the right kidney. Nirav Camacho MD Head CT 12/14/16 0000 Signed Impressions: Service Date/Time: Wednesday, December 14, 2016 17:38 - CONCLUSION: Negative for an acute process. Sander Resendiz MD FACR Physical Exam HEENT: Normocephalic; atraumatic; no jaundice CHEST: Tracheostomy, passey darvin valve. Resp. labored, expiratory wheezing. Respiratory in and placed back on Tbar. CARDIAC: ST ABDOMEN: Soft, obese, slightly distended, nontender, bowel sounds are present in all four quadrants. PEG tube site without redness or swelling. Flushed and aspirated tube with clear secretions in return EXTREMITIES: Generalized edema. INSOLE BUFFER: Awake follows commands (Callie Sims) Assessment and Plan Plan ASSESSMENT: - Melanotic/maroon stool. Nurse reports that she had a small melanotic stool with small amount of maroon tint to it. I flushed and aspirated clear contents from PEG tube. HH has remained stable 7.9/23.3. Pt reports that she last had colonoscopy 2 years ago and this was normal. EGD at time of PEG tube placement (12/27/16) was unremarkable. Will monitor stool. Notify GI of active bleeding. If further episodes consider egd/colonoscopy once her respiratory status improves. - Dysphagia, FEN. Pt in ICU, with respiratory failure, severe copd, heraclio, suspected cap, requiring prolonged mechanical ventilation. S/P tracheostomy placement. GI consulted for PEG tube placement. Finance Clerk recommends Nepro at 40cc/hr and discontinuing the Steve BID. S/P EGD with peg tube placement (12/27/16)-- -> 1. The upper, middle, and distal third of the esophagus were carefully inspected and no abnormalities were noted. The z- line was well seen at the GEJ. The endoscope was pushed into the fundus which was normal including a retroflexed view. The antrum, first and second part of the duodenum were unremarkable. 2. No abnormalities 3.S/p peg placement. Site without redness or swelling. Tolerating TF. - Respiratory failure, COPD, HERACLIO, Suspected CAP. S/P tracheostomy, Pt was placed on Passey Darvin Valve and almost immediately developed respiratory distress. She was placed back on TBar. - Acute on chronic kidney disease, DM, encephalopathy, htn, hyperlipidemia, per attending PLAN: - Nepro at 40cc/hr - Monitor HH - Transfuse as necessary - If further bleeding or drop in hgb, consider repeat EGD +/- Colonoscopy when respiratory status improves - Pt seen and examined by Dr. Munguia and myself and this note is written on her behalf (Callie Sims) Plan Patient was seen and examined, we were reconsulted for possible GI bleed, hemoglobin is stable, no sign of blood coming with aspiration of PEG tube, we will continue monitoring and if she did drop her hemoglobin will make consider doing upper endoscopy (Bianca Munguia MD) Callie Sims Jan 08, 2017 09:18 Bianca Munguia MD Jan 08, 2017 15:35
--- NOTE | 2017-01-08 09:46 | HHI.NPPN ---
Subjective Renal Failure: Chronic, Acute, Stage III Interval History Sitting up in bed eating breakfast. States she has a lot of mucous in the mornings. Attempted raphael removal but reportedly was retaining, it was replaced. Her renal function is slightly better. (Tootie Grant) Review of Systems General Constitutional: Fatigue General Remarks generalized pain (Tootie Grant) Respiratory Lungs: SOB, Cough, Wheeze (Tootie Grant) Objective Data Data Vital Signs Date Time Temp Pulse Resp B/P (MAP) Pulse Ox O2 Delivery O2 Flow Rate FiO2 01/08/17 09:30 Aerosol Mask 6.00 40 01/08/17 08:43 97 Trach Collar 5.00 40 01/08/17 06:00 75 01/08/17 04:00 98.3 72 24 144/67 (92) 92 01/08/17 04:00 72 01/08/17 02:00 71 01/08/17 00:00 80 01/08/17 00:00 98.5 80 50 140/80 (100) 95 01/07/17 22:00 79 01/07/17 21:38 95 Trach Collar 40 01/07/17 20:00 98.1 78 54 141/94 (110) 96 01/07/17 20:00 78 01/07/17 18:00 76 01/07/17 17:00 95 6.00 40 01/07/17 16:00 76 01/07/17 16:00 97.7 68 24 124/65 (84) 94 01/07/17 14:00 72 01/07/17 12:00 72 01/07/17 12:00 98.2 72 41 94/51 (65) 95 01/07/17 10:00 75 (Tootie Grant) -: 01/08/17 0508 01/08/17 0508 Imaging Last Impressions Chest X-Ray 01/07/17 0600 Signed Impressions: Service Date/Time: Saturday, January 07, 2017 04:02 - CONCLUSION: 1. Tracheostomy in good position. Subsegmental basilar airspace disease increased from December 30. Freddie Tubbs MD Abdomen X-Ray 12/26/16 0000 Signed Impressions: Service Date/Time: Monday, December 26, 2016 21:33 - CONCLUSION: Nasogastric tube tip is at the gastric outlet. Nirav Savage MD Liver Ultrasound 12/16/16 0000 Signed Impressions: Service Date/Time: Friday, December 16, 2016 15:25 - CONCLUSION: 1. The liver is prominent with no focal lesion or ascites. 2. The right kidney is small and atrophic in appearance with cortical thinning and no hydronephrosis. There is increased echogenicity most characteristic of medical renal disease. Dylan Bryant MD Renal Ultrasound 12/14/16 0000 Signed Impressions: Service Date/Time: Wednesday, December 14, 2016 18:21 - CONCLUSION: Medical renal disease with echogenic kidneys. There is some atrophy of the right kidney. Nirav Camacho MD Head CT 12/14/16 0000 Signed Impressions: Service Date/Time: Wednesday, December 14, 2016 17:38 - CONCLUSION: Negative for an acute process. Sander Resendiz MD FACR Tubes & Lines: Raphael Tubes & Lines Comment PEG (Tootie Grant [employer]. [employer]) Physical Exam General Appearance: Well Developed, Comfortable, Anxious, Obese (RudyTootie B. [employer]) Eyes Eye Exam: Pupils Equal (RudyTootie [employer]) Throat Throat Exam: Oral Mucosa [place] & Moist Throat Remarks trach (RudyTootie B[employer]) Neck Neck Exam: Neck Supple (RudyTootie [employer]) Pulmonary Resp Exam: Breath Sounds Equal, No Distress, Crackles, Diminished Breath Sounds Resp Remarks tachypneic (RudyTootie B[employer]) Cardiology CV Exam: Regular, Normal Sinus Rhythm (RudyTootie B. [employer]) Gastrointestinal/Abdomen GI Exam: Soft, Non-Tender, Bowel Sounds Present GI Remarks + PEG (RudyTootie B. [employer]) Musculoskeletal MS Exam: Joints Intact, Normal Tone, Unable to Ambulate (RudyTootie B. [employer]) Integumentary Skin Exam: Clear, Warm, Dry (RudyTootie B. [employer]) Extremeties Extremities Exam: No Edema, Pedal Pulses Palpable (Easton Granton B. 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 Renal function slightly better today. Her urine output is excellent, however reportedly retaining urine with trial raphael removal. Reattempt tomorrow. She is on steroids which may be contributing to high BUN. Avoid nephrotoxic agents. (2) HCAP (healthcare-associated pneumonia) ICD Codes: J18.9 - Healthcare-associated pneumonia Status: Acute Plan: Off solumedrol, on oral prednisone. She is also off antibiotics. Monitor clinically (3) Acute respiratory failure ICD Codes: J96.00 - Acute respiratory failure Status: Acute Plan: . S/p tracheostomy 12/26 she is off the vent; has P Valve in place improving, monitor will need rehab after discharge (4) DM (diabetes mellitus) ICD Codes: E11.9 - Type 2 diabetes mellitus without complications Status: Chronic Plan: continue insulin therapy goal 140-180 mg/dL (5) Hypocalcemia ICD Codes: E83.51 - Hypocalcemia Plan: PTH is high due to secondary hyperparathyroidism On Calcitriol and Vitamin D3. Hypocalcemia has corrected (6) Anemia ICD Codes: D64.9 - Anemia, unspecified Status: Chronic Plan: check iron profile there is reports of dark stool however the patient denies having a BM and reports having hemorrhoids. GI has been consulted. (Tootie Grant) Plan patient was seen and examined. BUN and creatinine are stable. Cleared for discharge from renal standpoint. Agree with above assessment and plan. (Thomas Blackmon MD) Problem Qualifiers (1) Acute renal failure: Qualified Codes: N17.9 - Acute kidney failure, unspecified (2) Acute respiratory failure: Qualified Codes: J96.01 - Acute respiratory failure with hypoxia; J96.02 - Acute respiratory failure with hypercapnia (3) DM (diabetes mellitus): Qualified Codes: E13.9 - Other specified diabetes mellitus without complications Tootie Grant Jan 08, 2017 09:46 Thomas Blackmon MD Jan 08, 2017 10:33
[2017-01-08] MEDS: predniSONE 10 MG TAB PO SCH (09:57)
[2017-01-08] MEDS: DOCUSATE SODIUM 100 MG/10 ML UDC PO SCH ×2 (09:57→20:52)
[2017-01-08] MEDS: SODIUM CHLORIDE 0.9% FLUSH 10 ML FLUSH IV FLUSH SCH ×2 (09:57→20:54)
[2017-01-08] MEDS: CALCIUM CARBONATE 1.25 GM (CA 500 MG) TAB PO SCH ×2 (09:58→20:52)
[2017-01-08] MEDS: CALCITRIOL 0.25 MCG CAP NG SCH (09:58)
[2017-01-08] MEDS: PANTOPRAZOLE SOD 20 MG DELAYED RELEASE TAB PO SCH (09:58)
[2017-01-08] MEDS: CHOLECALCIFEROL (VIT D3) 1000 UNIT TAB NG SCH (09:58)
[2017-01-08] MEDS: GABAPENTIN 100 MG CAP PO SCH ×3 (09:58→18:04)
[2017-01-08] MEDS: CHLORHEXIDINE 0.12% (ORAL KIT) 15 ML CUP MT SCH ×2 (10:14→20:00)
--- NOTE | 2017-01-08 10:37 | HHI.CCPN ---
Subjective Remarks/Hospital Course 61-year-old female. Date of admission 12/14/2016. Past records includes COPD/oxygen dependent, obstructive sleep apnea not using nocturnal CPAP , hypertension, morbid obesity. Hypertension, chronic kidney disease stage IV. She presents to [facility] 2 day history of shortness of breath. She is essentially in extremis 100 hour troponin emergency report. She is immediately placed on BiPAP however failed and was emergently endotracheally intubated. She required 100% FiO2 and was intermittently hypotensive the ED. CT head negative. Chest x-ray revealed possible vascular congestion. She is also noted of a calcium of 5.0. Elevated creatinine 5.1 with a baseline 1.9. she received 2 g calcium chloride and she received 20 mg IV Lasix. Back Up Worker discontinued IV fluids and starting Bumex at 2 mg IV twice a day. 2-D echocardiogram revealed hyperdynamic state with EF of 65-70%. 12/15: - Afebrile. Off all vasopressors. 700 cc urine overnight. She is responding to fluids. Currently on midazolam drip. We'll attempt sedation vacation today if FiO2 decreased to around 50%. 12/16: Afebrile. Off all vasopressors. 1300 cc urine output past 24 hours. Nonoliguric. Currently on Versed and fentanyl drips. Moving all 4 extremities spontaneous. Will briefly attempt sedation vacation day but resedate BRIANA. 12/17: Patient had to be neuromuscularly paralyzed due to high peak pressures and hypoventilation. Started on Bumex drip overnight. Currently on 70% fio2, 10 PEEP , due to severe hypoxia. BUN/Creat 108/5, but urine output is adequate on Bumex drip-Nephrology wants to wait 24 hours prior to HD. Chest exam reveals severe bilateral expiratory wheezing 12/18: Patient remains critically severely hypoxemic. Good response to Bumex gtt. 5.1 L urine output in 24 hours. BUN/creatinine trending down 99/4. Potassium being replaced. Continue to wean FiO2 as tolerated remains on 55% with 12 of PEEP. I will discontinue neuromuscular blockade today 12/19: Remains critically ill but stable. FiO2 remains at 50%, PEEP just earliest 8. Urine output more than 2 L on Bumex infusion but BUN is increased to 111 creatinine stable at 4. Discussed with nephrology DC Bumex infusion and start scheduled Bumex 1 mg every 8 hours 12/20: Requiring high FiO2 at 60% without improvement remains critically ill. Worsening BUN/creatinine today 136/4.6. Urine output 1 L in 24 hours. We'll start hemodialysis today after placing Vas-Cath. Patient not tolerating sedation vacation due to ventilator synchrony 12/21: Requiring heavy sedation for vent synchrony. FiO2 down to 40%, PEEP 8. HD started yesterday, repeat today. Creatinine slightly improved with dialysis 12/22: remaining encephalopathic. hypoxia somewhat improved. severely hypertensive despite medications. KAILEE persists on HD. volume overloaded. remaining critically ill with multiple organ systems involved and off pathway. 12/23: no significant improvements. HD yesterday with 2L net negative. encephalopathy persists. off versed. weaning propofol. failing SBT. Cr still elevated. still severely oliguric. 12/24: Despite negative fluid balance, still very critically ill, encephalopathic , and unable to tolerate SBT. Will likely require tracheostomy. 12/25: Patient remains critically ill encephalopathy. Intermittently but not consistently follows commands, appears very lethargic. BUN elevated to 138 today creatinine remained stable, patient is oliguric. Plan for HD today. I discussed with patient's daughter. Chance of successful extubation is slim, will proceed with tracheostomy tentatively planned for 12/26/1612/26: Patient is awake, but lethargic. With HD yesterday BUN improved to 98 from 138. Today Diffuse bilateral wheezing on exam. Chance of successful extubation minimal, vent day 13. Proceed with trach today. D/W pulmonology Dr. Oswald and he agrees with the plane. Daughter has consented and I have explained plan to patient who is also agreeable 12/27: Patient had tracheostomy placed yesterday. Tolerated procedure well. More awake and following commands. BUN has increased today to 105 creatinine 2.3. Nephrology planning on hemodialysis today. UO 2.2 L in 24 hours 12/28 Patient s/p PEG tube placement yesterday. On Ventilator via trach on Fentanyl infusion for sedation. Afebrile. Tolerated CPAP x 6 hrs yesterday. 12/29 No events overnight. Sedated with Fentanyl and on ventilator via trach. Tolerated CPAP all day yesterday. Afebrile. 12/30 Patient is off sedation tolerated TP 's with 50% FIO2 yesterday for several hrs kept ON CPAP overnight with PS 12, PEEP:8 and FIO2 40%. Afebrile. 12/31 No events overnight. Tolerated TP's for all day yesterday 01/01 Patient remains on ventilator via trach. On CPAP with PS 12, PEEP:5 and FIO2 35%. Afebrile. 01/02 Today off ventilator, sitting up in stretcher chair. Talking with Passy- [place] valve. Mild respiratory distress with talking 01/03: Afebrile. Currently on Passy-[place] valve. Only getting PT 2 days weekly. We'll increase to daily. Tolerating diet. No bowel movement yesterday. 01/04: No acute events overnight. Tolerating diet. Tolerating trach collar. Denies complaint to present time. 01/05: Placed on PSV overnight secondary dyspnea. Will transition back to trach collar trial today. Tolerating diet. Laboratories within normal limits. Receive alprazolam overnight for anxiety Subjective 01/06: Afebrile. On PSV overnight. Currently back on trach collar trials. Poor appetite. 01/07 No events overnight. On PS 12, PEEP:5 and 40% FIO2. Afebrile. 01/08 Patient has been on trach collars with 40% FIO2. Afebrile. Trach changed to # 6 fenestrated yesterday. Objective Vital Signs Date Time Temp Pulse Resp B/P (MAP) Pulse Ox O2 Delivery O2 Flow Rate FiO2 01/08/17 09:30 Aerosol Mask 6.00 40 01/08/17 08:43 97 01/08/17 06:00 75 01/08/17 04:00 98.3 24 144/67 (92) Intake and Output 01/08/17 01/08/17 01/09/17 08:00 16:00 00:00 Intake Total 480 ml Output Total 1250 ml Balance -770 ml Result Diagram: 01/08/17 0508 01/08/17 0508 Other Results Laboratory Tests Test 01/08/17 02:46 01/08/17 05:08 Urine Color LIGHT-YELLOW Urine Turbidity CLEAR Urine pH 6.5 Urine Specific Reserve 1.006 Urine Protein TRACE mg/dL Urine Glucose (UA) NEG mg/dL Urine Ketones NEG mg/dL Urine Occult Blood NEG Urine Nitrite NEG Urine Bilirubin NEG Urine Urobilinogen LESS THAN 2.0 MG/DL Urine Leukocyte Esterase NEG Urine WBC LESS THAN 1 /hpf Microscopic Urinalysis Comment CATH-CULT NOT IND White Blood Count 4.5 TH/MM3 Red Blood Count 2.57 MIL/MM3 Hemoglobin 7.9 GM/DL Hematocrit 23.2 % Mean Corpuscular Volume 90.6 FL Mean Corpuscular Hemoglobin 30.7 PG Mean Corpuscular Hemoglobin Concent 33.9 % Red Cell Distribution Width 15.7 % Platelet Count 207 TH/MM3 Mean Platelet Volume 7.2 FL Neutrophils (%) (Auto) 65.7 % Lymphocytes (%) (Auto) 24.5 % Monocytes (%) (Auto) 6.4 % Eosinophils (%) (Auto) 2.9 % Basophils (%) (Auto) 0.5 % Neutrophils # (Auto) 2.9 TH/MM3 Lymphocytes # (Auto) 1.1 TH/MM3 Monocytes # (Auto) 0.3 TH/MM3 Eosinophils # (Auto) 0.1 TH/MM3 Basophils # (Auto) 0.0 TH/MM3 CBC Comment AUTO DIFF Differential Comment AUTO DIFF CONFIRMED Blood Urea Nitrogen 33 MG/DL Creatinine 1.93 MG/DL Random Glucose 112 MG/DL Calcium Level 9.3 MG/DL Phosphorus Level 3.8 MG/DL Magnesium Level 2.0 MG/DL Sodium Level 138 MEQ/L Potassium Level 4.1 MEQ/L Chloride Level 104 MEQ/L Carbon Dioxide Level 24.8 MEQ/L Anion Gap 9 MEQ/L Estimat Glomerular Filtration Rate 26 ML/MIN Imaging Last Impressions Chest X-Ray 01/07/17 0600 Signed Impressions: Service Date/Time: Saturday, January 07, 2017 04:02 - CONCLUSION: 1. Tracheostomy in good position. Subsegmental basilar airspace disease increased from December 30. Freddie Tubbs MD Abdomen X-Ray 12/26/16 0000 Signed Impressions: Service Date/Time: Monday, December 26, 2016 21:33 - CONCLUSION: Nasogastric tube tip is at the gastric outlet. Nirav Savage MD Liver Ultrasound 12/16/16 0000 Signed Impressions: Service Date/Time: Friday, December 16, 2016 15:25 - CONCLUSION: 1. The liver is prominent with no focal lesion or ascites. 2. The right kidney is small and atrophic in appearance with cortical thinning and no hydronephrosis. There is increased echogenicity most characteristic of medical renal disease. Dylan Bryant MD Renal Ultrasound 12/14/16 0000 Signed Impressions: Service Date/Time: Wednesday, December 14, 2016 18:21 - CONCLUSION: Medical renal disease with echogenic kidneys. There is some atrophy of the right kidney. Nirav Camacho MD Head CT 12/14/16 0000 Signed Impressions: Service Date/Time: Wednesday, December 14, 2016 17:38 - CONCLUSION: Negative for an acute process. Sander Resendiz MD FACR Objective Remarks GENERAL: 60-year-old female currently resting in bed on ventilator via tracheostomy distress SKIN: Warm and dry. No rash. Poor skin turgor. HEAD: Atraumatic. Normocephalic. EYES: Pupils equal and round about 3 mm bilaterally and reactive. No scleral icterus. No injection or drainage. ENT: No nasal bleeding or discharge. Mucous membranes pink and moist. NECK: Trachea midline. JVD unable to assess due to obesity. Trach site C/D/I #8 [place] CARDIOVASCULAR: Regular rate and rhythm. S1, S2. No S4. RESPIRATORY: Diminished breath sounds throughout. Positive end expiratory wheezing. GASTROINTESTINAL: Abdomen soft, non-tender, protuberant. PEG tube site is clean dry and intact MUSCULOSKELETAL: Extremities without significant peripheral edema. No obvious deformities. NEUROLOGICAL: Alert awake, in bed. Cranial nerves II through XII grossly intact. Strength is 4+ out of 5 bilateral upper and lower extremities. No focal deficits A/P Assessment and Plan Neuro/Psych: Toxic metabolic Encephalopathy - likely metabolic/CO2 retention, resolved Restless leg syndrome Diabetic neuropathy Awake and alert, avoid sedatives CT brain 12/14 revealed no acute intracranial findings Holding gabapentin 300 mg 3 times a day Resume gabapentin 01/06 at 100 milligrams 3 times a day Acetaminophen for fever when necessary Alprazolam 0.5 mg by mouth every 8 hours anxiety Continue tramadol 50 mg as needed for pain management CV: Hypertension History of hypertension History dyslipidemia Pulmonary hypertension likely type III secondary to COPD Monitor HR and BP keep MAP >65mmHg Continue hydralazine 100 3 times a day, Isordil 10 mg 3 times a day. Procardia 40mg every 8 hours, clonidine 0.3 milligram TID. Labetalol 200mg po q8hr. Breakthrough labetalol and hydralazine iv. (Home medications include lisinopril 5 mill grams daily, metoprolol 50 mill grams twice a day, clonidine 0.1 mg 3 times a day, nifedipine 60 mill grams every 12 hours, Imdur 30 mg daily and hydralazine 100 mg 3 times daily.) Echocardiogram 2015 EF 55-60%. No regional wall motion abnormality. LEXIE- 61 mmHg. Mild MR. Echocardiogram 12/14/16 - EF 65-70%. No regional wall motion abnormality. Hyperdynamic state Resp: Acute hypoxemic respiratory failure-resolved Severe COPD/O2 dependent, with acute exacerbation HERACLIO/no CPAP at home Probable community-acquired pneumonia s/p Trach 12/26. Tolerating trach collar with 40% FIO2. Albuterol/ipratropium aerosols every 6 hours with albuterol for breakthrough every 2 hours when necessary Budesonide 0.5 mg/2 mL one inhalation twice a day Prednisone 10mg daily At home Anoro Ellipta 62.5/25 one inhalation daily has been resumed and Symbicort 160/4.5 2 puffs every 12 hours with as needed albuterol Pulm Dr. Noble GI: Elevated transaminases- resolved s/p PEG tube placement 12/27 Currently on oral diet Docusate sodium for bowel regimen. Avoid hepatotoxic medications. 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 Cr: 1.93 from 2.08 Renal-Dr. Blackmon. Vascath d/c 01/01 per renal. Renal ultrasound 12/14 indicative of medical renal disease with atrophied right kidney Continue Ca carbonate 500 mg every 12 hours. Calcitrol 0.25 mcg daily continue per nephrology. Heme: Normocytic anemia Leukopenia Monitor CBC ID: Probable community-acquired pneumonia UTI Urine cx 12/27: C. Albicans. Diflucan 100mg daily discontinue 01/05. s/p full course of abx(piperacillin/tazobactam and levofloxacin). UA negative/, sputum neg to date. Blood cultures 12/14 and 12/15 negative to date. Negative urine pneumococcal and Legionella antigens Monitor for signs of infections ( Fever, WBC) Access Peripheral IV's Prophylaxis - GI -pantoprazole - DVT - SCD/heparin subcutaneous Level 2 Evaluate for LTAC placement- Patient was rejected by [employer]. Cam Elkins MD Jan 08, 2017 10:37
[2017-01-08] MEDS: RESP: ALBUTEROL 2.5 MG/IPRATROPIUM 0.5 MG NEB (PRN) NEB ×2 (15:39→21:20)
[2017-01-08] MEDS: ALPRAZolam 0.5 MG TAB PO PRN (23:38)
[2017-01-09] VITALS (14 sets, daily range): BP systolic 115–148; BP diastolic 62–71; PULSE 66–77; RESP 21–41; TEMP 97.8–98.8; O2SAT 88–99
[2017-01-09] MEDS: INSULIN NovoLIN REGULAR SUPPLEMENTAL SCALE SQ SCH ×4 (03:00→21:00)
[2017-01-09] MEDS: CHLORHEXIDINE GLUCONATE 2 % 1 PACK (2 CLOTHS) TOP SCH (04:00)
[2017-01-09] MEDS: HEPARIN SODIUM - SQ 10,000 UNITS/ML VIAL SQ SCH ×2 (04:51→14:02)
[2017-01-09] MEDS: LABETALOL HCL 200 MG TAB PO SCH ×3 (04:55→21:51)
[2017-01-09] MEDS: ISOSORBIDE DINITRATE 10 MG TAB PO SCH ×3 (04:56→21:53)
[2017-01-09] MEDS: cloNIDine HCL 0.3 MG TAB PO SCH ×3 (04:56→21:50)
[2017-01-09] MEDS: hydrALAZINE HCL 100 MG TAB PO SCH ×3 (04:56→21:50)
[2017-01-09] MEDS: NIFEdipine 20 MG CAP PO SCH ×3 (04:57→21:51)
--- NOTE | 2017-01-09 05:51 | RADRPT ---
EXAM DATE/TIME: 01/09/2017 05:11 [facility] COMPARISON: CHEST SINGLE AP, January 07, 2017, 4:02. INDICATIONS : Short of breath. MEDICAL HISTORY : Chronic obstructive pulmonary disease. Renal insufficiency. SURGICAL HISTORY : None. ENCOUNTER: Subsequent ACUITY: 3 weeks PAIN SCORE: 0/10 LOCATION: Bilateral chest FINDINGS: A single view of the chest demonstrates tracheostomy in good position. Basilar airspace disease simil ar to January 07. No pneumothorax. Small effusions. CONCLUSION: 1. Basilar airspace disease similar to January 07. Small effusions. Tracheostomy in good position. Freddie Tubbs MD on January 09, 2017 at 5:48 Board Certified Radiologist. This report was verified electronically.
[2017-01-09 06:18] LABS: BICARBONATE 23.7 MEQ/L (21.0-32.0); POTASSIUM 4.5 MEQ/L (3.5-5.1)
[2017-01-09 06:36] LABS: AUTOMATED NEUTROPHIL # 3.3 TH/MM3 (1.8-7.7); BASOPHIL % 0.5 % (0.0-2.0); EOSINOPHIL # 0.1 TH/MM3 (0-0.4); EOSINOPHIL % 2.5 % (0.0-4.0); HEMATOCRIT 24.4 % (35.0-46.0); LYMPH % 19.3 % (9.0-44.0); LYMPHOCYTE # 0.9 TH/MM3 (1.0-4.8); MEAN CELL VOLUME 90.4 FL (80.0-100.0); MEAN CORPUSCULAR HEMOGLOBIN 29.7 PG (27.0-34.0); MEAN CORPUSCULAR HGB CONC 32.9 % (32.0-36.0); MONO % 6.5 % (0.0-8.0); NEUT % 71.2 % (16.0-70.0); PLATELET COUNT 226 TH/MM3 (150-450); RED CELL DISTRIBUTION WIDTH 15.6 % (11.6-17.2); WHITE BLOOD COUNT 4.6 TH/MM3 (4.0-11.0)
[2017-01-09 06:37] LABS: HEMO FLAGS AUTO DIFF
[2017-01-09 07:45] LABS: BANDS 3 % (0-6); EOSINOPHILS 3 % (0-4); MYELOCYTES 3 % (0-0); NEUTROPHIL # MANUAL DIFF 2.9 TH/MM3 (1.8-7.7); POLYS (SEG NEUTROPHILS) 57 % (16-70); WBC DIFF SAMPLE 100
[2017-01-09 07:46] LABS: SCAN/DIFF FINAL DIFF MANUAL
[2017-01-09] MEDS: CHLORHEXIDINE 0.12% (ORAL KIT) 15 ML CUP MT SCH ×2 (08:00→20:00)
--- NOTE | 2017-01-09 08:51 | HHI.CCPN ---
Subjective Remarks/Hospital Course 61-year-old female. Date of admission 12/14/2016. Past records includes COPD/oxygen dependent, obstructive sleep apnea not using nocturnal CPAP , hypertension, morbid obesity. Hypertension, chronic kidney disease stage IV. She presents to [facility] 2 day history of shortness of breath. She is essentially in extremis 100 hour troponin emergency report. She is immediately placed on BiPAP however failed and was emergently endotracheally intubated. She required 100% FiO2 and was intermittently hypotensive the ED. CT head negative. Chest x-ray revealed possible vascular congestion. She is also noted of a calcium of 5.0. Elevated creatinine 5.1 with a baseline 1.9. she received 2 g calcium chloride and she received 20 mg IV Lasix. [facility] [employer] discontinued IV fluids and starting Bumex at 2 mg IV twice a day. 2-D echocardiogram revealed hyperdynamic state with EF of 65-70%. 12/15: - Afebrile. Off all vasopressors. 700 cc urine overnight. She is responding to fluids. Currently on midazolam drip. We'll attempt sedation vacation today if FiO2 decreased to around 50%. 12/16: Afebrile. Off all vasopressors. 1300 cc urine output past 24 hours. Nonoliguric. Currently on Versed and fentanyl drips. Moving all 4 extremities spontaneous. Will briefly attempt sedation vacation day but resedate BRIANA. 12/17: Patient had to be neuromuscularly paralyzed due to high peak pressures and hypoventilation. Started on Bumex drip overnight. Currently on 70% fio2, 10 PEEP , due to severe hypoxia. BUN/Creat 108/5, but urine output is adequate on Bumex drip-Nephrology wants to wait 24 hours prior to HD. Chest exam reveals severe bilateral expiratory wheezing 12/18: Patient remains critically severely hypoxemic. Good response to Bumex gtt. 5.1 L urine output in 24 hours. BUN/creatinine trending down 99/4. Potassium being replaced. Continue to wean FiO2 as tolerated remains on 55% with 12 of PEEP. I will discontinue neuromuscular blockade today 12/19: Remains critically ill but stable. FiO2 remains at 50%, PEEP just earliest 8. Urine output more than 2 L on Bumex infusion but BUN is increased to 111 creatinine stable at 4. Discussed with nephrology DC Bumex infusion and start scheduled Bumex 1 mg every 8 hours 12/20: Requiring high FiO2 at 60% without improvement remains critically ill. Worsening BUN/creatinine today 136/4.6. Urine output 1 L in 24 hours. We'll start hemodialysis today after placing Vas-Cath. Patient not tolerating sedation vacation due to ventilator synchrony 12/21: Requiring heavy sedation for vent synchrony. FiO2 down to 40%, PEEP 8. HD started yesterday, repeat today. Creatinine slightly improved with dialysis 12/22: remaining encephalopathic. hypoxia somewhat improved. severely hypertensive despite medications. KAILEE persists on HD. volume overloaded. remaining critically ill with multiple organ systems involved and off pathway. 12/23: no significant improvements. HD yesterday with 2L net negative. encephalopathy persists. off versed. weaning propofol. failing SBT. Cr still elevated. still severely oliguric. 12/24: Despite negative fluid balance, still very critically ill, encephalopathic , and unable to tolerate SBT. Will likely require tracheostomy. 12/25: Patient remains critically ill encephalopathy. Intermittently but not consistently follows commands, appears very lethargic. BUN elevated to 138 today creatinine remained stable, patient is oliguric. Plan for HD today. I discussed with patient's daughter. Chance of successful extubation is slim, will proceed with tracheostomy tentatively planned for 12/26/1612/26: Patient is awake, but lethargic. With HD yesterday BUN improved to 98 from 138. Today Diffuse bilateral wheezing on exam. Chance of successful extubation minimal, vent day 13. Proceed with trach today. D/W pulmonology Dr. Oswald and he agrees with the plane. Daughter has consented and I have explained plan to patient who is also agreeable 12/27: Patient had tracheostomy placed yesterday. Tolerated procedure well. More awake and following commands. BUN has increased today to 105 creatinine 2.3. Nephrology planning on hemodialysis today. UO 2.2 L in 24 hours 12/28 Patient s/p PEG tube placement yesterday. On Ventilator via trach on Fentanyl infusion for sedation. Afebrile. Tolerated CPAP x 6 hrs yesterday. 12/29 No events overnight. Sedated with Fentanyl and on ventilator via trach. Tolerated CPAP all day yesterday. Afebrile. 12/30 Patient is off sedation tolerated TP 's with 50% FIO2 yesterday for several hrs kept ON CPAP overnight with PS 12, PEEP:8 and FIO2 40%. Afebrile. 12/31 No events overnight. Tolerated TP's for all day yesterday 01/01 Patient remains on ventilator via trach. On CPAP with PS 12, PEEP:5 and FIO2 35%. Afebrile. 01/02 Today off ventilator, sitting up in stretcher chair. Talking with Passy- [place] valve. Mild respiratory distress with talking 01/03: Afebrile. Currently on Passy-[place] valve. Only getting PT 2 days weekly. We'll increase to daily. Tolerating diet. No bowel movement yesterday. 01/04: No acute events overnight. Tolerating diet. Tolerating trach collar. Denies complaint to present time. 01/05: Placed on PSV overnight secondary dyspnea. Will transition back to trach collar trial today. Tolerating diet. Laboratories within normal limits. Receive alprazolam overnight for anxiety 01/06: Afebrile. On PSV overnight. Currently back on trach collar trials. Poor appetite. 01/07 No events overnight. On PS 12, PEEP:5 and 40% FIO2. Afebrile. 01/08 Patient has been on trach collars with 40% FIO2. Afebrile. Trach changed to # 6 fenestrated yesterday. Subjective 01/09: Afebrile. On trach collar trials 48 hours. No active bleeding noted. Currently resting in bed in no acute distress tolerating tube feeds Objective Vital Signs Date Time Temp Pulse Resp B/P (MAP) Pulse Ox O2 Delivery O2 Flow Rate FiO2 01/09/17 06:00 72 01/09/17 04:00 98.8 27 146/71 (96) 89 01/08/17 21:17 Trach Collar 5.00 35 Intake and Output 01/09/17 01/09/17 01/10/17 08:00 16:00 00:00 Intake Total 500 ml Output Total 1300 ml Balance -800 ml Result Diagram: 01/09/17 0507 01/09/17 0507 Other Results Microbiology Date/Time Source Procedure Growth Status 12/15/16 05:03 Blood Peripheral Aerobic Blood Culture - Final NO GROWTH IN 5 DAYS Complete 12/15/16 05:03 Blood Peripheral Anaerobic Blood Culture - Final NO GROWTH IN 5 DAYS Complete 12/16/16 10:00 Sputum Endotracheal Gram Stain - Final Complete 12/16/16 10:00 Sputum Endotracheal Sputum Culture - Final LIGHT GROWTH NORMAL RESPIRATORY SLAVA Complete 01/02/17 17:30 Urine Catheterized Urine Urine Culture - Final Chaya Albicans Complete Imaging Last Impressions Chest X-Ray 01/09/17 0600 Signed Impressions: Service Date/Time: Monday, January 09, 2017 05:11 - CONCLUSION: 1. Basilar airspace disease similar to January 07. Small effusions. Tracheostomy in good position. Freddie Tubbs MD Abdomen X-Ray 12/26/16 0000 Signed Impressions: Service Date/Time: Monday, December 26, 2016 21:33 - CONCLUSION: Nasogastric tube tip is at the gastric outlet. Nirav Savage MD Liver Ultrasound 12/16/16 0000 Signed Impressions: Service Date/Time: Friday, December 16, 2016 15:25 - CONCLUSION: 1. The liver is prominent with no focal lesion or ascites. 2. The right kidney is small and atrophic in appearance with cortical thinning and no hydronephrosis. There is increased echogenicity most characteristic of medical renal disease. Dylan Bryant MD Renal Ultrasound 12/14/16 0000 Signed Impressions: Service Date/Time: Wednesday, December 14, 2016 18:21 - CONCLUSION: Medical renal disease with echogenic kidneys. There is some atrophy of the right kidney. Nirav Camacho MD Head CT 12/14/16 0000 Signed Impressions: Service Date/Time: Wednesday, December 14, 2016 17:38 - CONCLUSION: Negative for an acute process. Sander Resendiz MD FACR Objective Remarks GENERAL: 60-year-old female currently resting in bed via trach collar in no acute distress SKIN: Warm and dry. No rash. Poor skin turgor. Ischial stage I decubitus ulcer noted HEAD: Atraumatic. Normocephalic. EYES: Pupils equal and round about 3 mm bilaterally and reactive. No scleral icterus. No injection or drainage. ENT: No nasal bleeding or discharge. Mucous membranes pink and moist. NECK: Trachea midline. JVD unable to assess due to obesity. Trach site C/D/I #6 Shiley CARDIOVASCULAR: Regular rate and rhythm. S1, S2. No S4. RESPIRATORY: Diminished breath sounds throughout. Positive end expiratory wheezing. GASTROINTESTINAL: Abdomen soft, non-tender, protuberant. PEG tube site is clean dry and intact MUSCULOSKELETAL: Extremities without significant peripheral edema. No obvious deformities. NEUROLOGICAL: Alert awake, in bed. Cranial nerves II through XII grossly intact. Strength is 4+ out of 5 bilateral upper and lower extremities. No focal deficits A/P Assessment and Plan Neuro/Psych: Toxic metabolic Encephalopathy - likely metabolic/CO2 retention, resolved Restless leg syndrome Diabetic neuropathy Awake and alert, avoid sedatives CT brain 12/14 revealed no acute intracranial findings Holding gabapentin 300 mg 3 times a day Resume gabapentin 01/06 at 100 milligrams 3 times a day Acetaminophen 650 mg for fever when necessary Alprazolam 0.5 mg by mouth every 8 hours anxiety Continue tramadol 50 mg as needed for pain management CV: Hypertension History of hypertension History dyslipidemia Pulmonary hypertension likely type III secondary to COPD Monitor HR and BP keep MAP >65mmHg Continue hydralazine 100 3 times a day, Isordil 10 mg 3 times a day. Nifedipine 40mg every 8 hours, clonidine 0.3 milligram TID. Labetalol 200mg po q8hr. Breakthrough labetalol and hydralazine iv. (Home medications include lisinopril 5 mill grams daily, metoprolol 50 mill grams twice a day, clonidine 0.1 mg 3 times a day, nifedipine 60 mill grams every 12 hours, isosorbide mononitrate 30 mg daily and hydralazine 100 mg 3 times daily.) Echocardiogram 2015 EF 55-60%. No regional wall motion abnormality. LEXIE- 61 mmHg. Mild MR. Echocardiogram 12/14/16 - EF 65-70%. No regional wall motion abnormality. Hyperdynamic state Resp: Acute hypoxemic respiratory failure-resolved Severe COPD/O2 dependent, with acute exacerbation HERACLIO/no CPAP at home Probable community-acquired pneumonia s/p Trach 12/26. Tolerating trach collar with 40% FIO2. With #6 Kurt Albuterol/ipratropium aerosols every 6 hours with albuterol for breakthrough every 2 hours when necessary Prednisone 10mg daily/home dose medication Umeclidinium/Vilanterol 62.5 micrograms/25 micrograms one inhalation daily has been resumed and budesonide/formoterol 160/4.5 2 puffs every [address] Noble GI: Elevated transaminases- resolved s/p PEG tube placement 12/27 Currently on oral diet/Nepro 40 cc previous tube feed dosage Docusate sodium 100 mg twice a day for bowel regimen. Avoid hepatotoxic medications. Evaluated by GI 01/08 for possible GI bleed. Negative workup today. He will be stable. No plans for intervention at the present time. Endo: Diabetes mellitus with neuropathy Hyperglycemia SSI with accuchecks Novulin R every 6/low regimen Renal: Acute kidney injury in the setting of Chronic kidney disease stage 4 - AIN versus medication requiring NETBACKUP ADMIN Monitor renal function, I/O's, avoid nephrotoxins. Creatinine stabilized around 2 Renal-Dr. Blackmon. Marco d/c 01/01 per renal. Renal ultrasound 12/14 indicative of medical renal disease with atrophied right kidney Continue Ca carbonate 500 mg every 12 hours. Calcitrol 0.25 mcg daily continue per nephrology. Heme: Normocytic anemia Monitor CBC No indication for transfusion of blood product at this time ID: Probable community-acquired pneumonia UTI Urine cx 12/27 & 01/02: C. Albicans. Tinea cruris Fluconazole 100mg daily discontinue 01/05. s/p full course of abx(piperacillin/tazobactam and levofloxacin). UA negative/, sputum neg to date. Blood cultures 12/14 and 12/15 negative to date. Negative urine pneumococcal and Legionella antigens Monitor for signs of infections ( Fever, WBC) Noted last UA with positive Chaya. Started nystatin powder twice a day for tinea nazia Access Peripheral IV's Prophylaxis - GI -pantoprazole - DVT - SCD/heparin subcutaneous Level 2 Evaluate for LTAC placement- Patient was rejected by [employer]. Patient is stable from a critical care medicine standpoint. We'll assign care to hospitalist in a.m. 01/10 Joseph Reilly MD Jan 09, 2017 08:51
[2017-01-09] MEDS: DOCUSATE SODIUM 100 MG/10 ML UDC PO SCH ×2 (09:00→21:50)
[2017-01-09] MEDS: RESP: ALBUTEROL 2.5 MG/IPRATROPIUM 0.5 MG NEB (SCH) NEB ×3 (09:08→20:58)
[2017-01-09] MEDS ORDERED: BUMETANIDE INJ 1 MG/4 ML VIAL IV PUSH ONE (09:15)
[2017-01-09] MEDS: CALCITRIOL 0.25 MCG CAP NG SCH (10:24)
[2017-01-09] MEDS: CALCIUM CARBONATE 1.25 GM (CA 500 MG) TAB PO SCH ×2 (10:25→21:50)
[2017-01-09] MEDS: CHOLECALCIFEROL (VIT D3) 1000 UNIT TAB NG SCH (10:25)
[2017-01-09] MEDS: PANTOPRAZOLE SOD 20 MG DELAYED RELEASE TAB PO SCH (10:25)
[2017-01-09] MEDS: GABAPENTIN 100 MG CAP PO SCH ×3 (10:25→18:07)
[2017-01-09] MEDS: predniSONE 10 MG TAB PO SCH (10:25)
[2017-01-09] MEDS: SODIUM CHLORIDE 0.9% FLUSH 10 ML FLUSH IVF SCH (10:26)
[2017-01-09] MEDS: SODIUM CHLORIDE 0.9% FLUSH 10 ML FLUSH IV FLUSH SCH ×2 (10:26→21:51)
--- NOTE | 2017-01-09 11:27 | HHI.NPPN ---
Subjective Renal Failure: Chronic, Acute, Stage III Interval History Breathing is better. Renal function is stable. No new concerns. (Tootie Grant) Review of Systems General Constitutional: Fatigue General Remarks generalized pain (Tootie Grant) Respiratory Lungs: SOB, Cough, Wheeze (Tootie Grant) Objective Data Data Vital Signs Date Time Temp Pulse Resp B/P (MAP) Pulse Ox O2 Delivery O2 Flow Rate FiO2 01/09/17 10:00 74 01/09/17 09:10 95 Trach Collar 6.00 35 01/09/17 08:00 74 01/09/17 06:00 72 01/09/17 04:00 98.8 73 27 146/71 (96) 89 01/09/17 04:00 73 01/09/17 02:00 72 01/09/17 00:00 97.8 67 23 118/62 (80) 88 01/09/17 00:00 67 01/08/17 22:00 72 01/08/17 21:17 97 Trach Collar 5.00 35 01/08/17 20:00 98.5 74 32 105/71 (82) 99 01/08/17 20:00 74 01/08/17 18:00 77 01/08/17 16:00 72 01/08/17 16:00 98.4 72 30 116/60 (78) 98 01/08/17 14:00 75 01/08/17 12:00 98.4 77 32 124/74 (91) 97 01/08/17 12:00 73 (Tootie Grant) -: 01/09/17 0507 01/09/17 0507 Tubes & Lines: Raphael Tubes & Lines Comment PEG (Tootie Grant) Physical Exam General Appearance: Well Developed, No Acute Distress, Comfortable, Obese (Tootie Grant) Eyes Eye Exam: Pupils Equal (Tootie Grant) Throat Throat Exam: Oral Mucosa Farnam & Moist Throat Remarks trach (Tootie Grant) Neck Neck Exam: Neck Supple (Tootie Grant) Pulmonary Resp Exam: Breath Sounds Equal, No Distress, Diminished Breath Sounds (Tootie Grant) Cardiology CV Exam: Regular, Normal Sinus Rhythm (Tootie Grant) Gastrointestinal/Abdomen GI Exam: Soft, Non-Tender, Bowel Sounds Present GI Remarks + PEG (Tootie Grant) Musculoskeletal MS Exam: Joints Intact, Normal Tone, Unable to Ambulate (Tootie Grant) Integumentary Skin Exam: Clear, Warm, Dry (Tootie Grant) Extremeties Extremities Exam: No Edema, Pedal Pulses Palpable (Tootie Grant) Neurologic Neuro Exam: Alert, Awake, Oriented, Speech Clear, Moving All Extremities (Tootie Grant) Psychiatric Psych Exam: Appropriate Responses (Tootie Grant) VTE Prophylaxis Device: SCDs (Tootie Grant) Assessment/Plan Discussed Condition With: Patient Assessment Summary: KAILEE/Acute Renal Failure, Acute Tubular Necrosis, Anemia of CKD, Fluid/Volume Overload, Hypertension, Diabetes Mellitus Problem List: (1) Acute renal failure ICD Codes: N17.9 - Acute kidney failure, unspecified Status: Acute Plan: 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 Renal function returned to baseline Her urine output is excellent, Reattempt raphael removal today. She is on steroids which may be contributing to high BUN. Avoid nephrotoxic agents. Repeat labs in AM . (2) HCAP (healthcare-associated pneumonia) ICD Codes: J18.9 - Healthcare-associated pneumonia Status: Acute Plan: Off solumedrol, on oral prednisone. She is also off antibiotics. Monitor clinically (3) Acute respiratory failure ICD Codes: J96.00 - Acute respiratory failure Status: Acute Plan: . S/p tracheostomy 12/26 she is off the vent; has P Valve in place improving, monitor will need rehab after discharge (4) DM (diabetes mellitus) ICD Codes: E11.9 - Type 2 diabetes mellitus without complications Status: Chronic Plan: continue insulin therapy goal 140-180 mg/dL (5) Hypocalcemia ICD Codes: E83.51 - Hypocalcemia Plan: PTH is high due to secondary hyperparathyroidism On Calcitriol and Vitamin D3. Hypocalcemia has corrected (6) Anemia ICD Codes: D64.9 - Anemia, unspecified Status: Chronic Plan: no further dark stools Hb stable monitor (Tootie Grant) Plan patient was seen and examined. BUN and creatinine are stable. (BUN is not high) . Encourage oral intake. No need for dialysis. Monitor renal function. (Thomas Blackmon MD) Problem Qualifiers (1) Acute renal failure: Qualified Codes: N17.9 - Acute kidney failure, unspecified (2) Acute respiratory failure: Qualified Codes: J96.01 - Acute respiratory failure with hypoxia; J96.02 - Acute respiratory failure with hypercapnia (3) DM (diabetes mellitus): Qualified Codes: E13.9 - Other specified diabetes mellitus without complications Tootie Grant Jan 09, 2017 11:27 Thomas Blackmon MD Jan 10, 2017 17:35
--- NOTE | 2017-01-09 11:44 | PD.WCN.NOT ---
Wound Consult Description: Received consult for pressure ulcer to ischial area from Doctor Reilly Communicated with: MIKEL Zimmerman [facility] [place], and Doctor Reilly Recommendation: 1.Please cleanse buttock area with soap and water gently no scrubbing and pat dry. Apply thick layer of Calazime barrier cream to to bilateral buttock and perineal areas.OK to not remove all barrier cream when cleaning patient, OK to layer cream. DO NOT scrub cream off patient. 2.Continue to turn patient every 2 hours and PRN for comfort. 3.Please check bed settings and be sure that bed is set at proper inflation for patient's weight and microclimate service operations manager is on. DO NOT apply thick cloth pads under patient for incontinence management. These thick cloth pads will not allow the low air loss bed to work properly.Use a flat turn sheet with an ultra sorb pad for incontinence management. Additional Information: Patient seen on 5th floor [facility] [place] for evaluation of pressure injury to sacrum. Patient is laying on [place] low air loss bed. inflation setting was adjusted to the proper weight setting and microclimate service operations manager was turned on. Observed patient laying on thick cloth pad when turned to L side for assessment with the assistance of MIKEL HINDS and teletypewriter installer. Patient is noted with partial thickness skin loss to L buttock with surrounding peeling denuded, macerated skin. Partial thickness skin loss is noted with jagged poorly defined wound margins. Wound appears to be moisture and friction related. Cleansed wound with normal saline and pat dry.MIKEL Vázquez applied thick layer of Calazime barrier cream on bilateral buttock area and left open to air. Thick cloth pad replaced with ultra sorb pad. Ella Soto [facility] Jan 09, 2017 11:44
[2017-01-09] MEDS: UMECLIDINIUM 62.5 MCG/VILANTEROL 25 MCG INHALER INH SCH (14:01)
[2017-01-09] MEDS: BUDESONIDE-FORMOTEROL 160/4.5 MCG INHALER INH SCH ×2 (14:04→21:50)
[2017-01-09] MEDS: NYSTATIN 100,000 U/GM PWD 15 GM BTL TOPICAL SCH ×2 (14:04→21:50)
--- NOTE | 2017-01-09 15:41 | HHI.GIFU ---
Subjective Remarks Resting in bed. On T-Bar. Large amount of secretions from trach. Labored breathing on minimal exertion. No n/v. No abdominal pain. Nurse reports two small rust colored stools today. (Callie Sims) Objective Vitals I&O Vital Signs Date Time Temp Pulse Resp B/P (MAP) Pulse Ox O2 Delivery O2 Flow Rate FiO2 01/09/17 14:00 77 01/09/17 12:00 69 01/09/17 12:00 98.3 69 34 132/63 (86) 97 01/09/17 10:00 74 01/09/17 09:10 95 Trach Collar 6.00 35 01/09/17 08:00 74 01/09/17 08:00 98.3 74 21 115/66 (82) 98 01/09/17 06:00 72 01/09/17 04:00 98.8 73 27 146/71 (96) 89 01/09/17 04:00 73 01/09/17 02:00 72 01/09/17 00:00 97.8 67 23 118/62 (80) 88 01/09/17 00:00 67 01/08/17 22:00 72 01/08/17 21:17 97 Trach Collar 5.00 35 01/08/17 20:00 98.5 74 32 105/71 (82) 99 01/08/17 20:00 74 01/08/17 18:00 77 01/08/17 16:00 72 01/08/17 16:00 98.4 72 30 116/60 (78) 98 I/O 01/08/17 01/08/17 01/08/17 01/09/17 01/09/17 01/09/17 07:00 15:00 23:00 07:00 15:00 23:00 Intake Total 480 ml 700 ml 250 ml 500 ml Output Total 1250 ml 925 ml 1300 ml Balance -770 ml 700 ml -675 ml -800 ml Intake Oral 480 ml 640 ml 250 ml 500 ml Other 60 ml Output Urine Total 1250 ml 925 ml 1300 ml Bladder Scan Volume Amount 310 ml 642 ml # Bowel Movements 0 0 Laboratory Laboratory Tests Test 01/09/17 05:07 White Blood Count 4.6 Red Blood Count 2.70 Hemoglobin 8.0 Hematocrit 24.4 Mean Corpuscular Volume 90.4 Mean Corpuscular Hemoglobin 29.7 Mean Corpuscular Hemoglobin Concent 32.9 Red Cell Distribution Width 15.6 Platelet Count 226 Mean Platelet Volume 6.5 Neutrophils (%) (Auto) 71.2 Lymphocytes (%) (Auto) 19.3 Monocytes (%) (Auto) 6.5 Eosinophils (%) (Auto) 2.5 Basophils (%) (Auto) 0.5 Neutrophils # (Auto) 3.3 Lymphocytes # (Auto) 0.9 Monocytes # (Auto) 0.3 Eosinophils # (Auto) 0.1 Basophils # (Auto) 0.0 CBC Comment AUTO DIFF Differential Total Cells Counted 100 Neutrophils % (Manual) 57 Band Neutrophils % 3 Lymphocytes % 25 Monocytes % 9 Eosinophils % 3 Neutrophils # (Manual) 2.9 Myelocytes 3 Differential Comment FINAL DIFF MANUAL Blood Urea Nitrogen 32 Creatinine 1.99 Random Glucose 131 Calcium Level 9.8 Phosphorus Level 4.2 Magnesium Level 2.0 Sodium Level 134 Potassium Level 4.5 Chloride Level 101 Carbon Dioxide Level 23.7 Anion Gap 9 Estimat Glomerular Filtration Rate 25 Date/Time Source Procedure Growth Status 12/15/16 05:03 Blood Peripheral Aerobic Blood Culture - Final NO GROWTH IN 5 DAYS Complete 12/15/16 05:03 Blood Peripheral Anaerobic Blood Culture - Final NO GROWTH IN 5 DAYS Complete 12/16/16 10:00 Sputum Endotracheal Gram Stain - Final Complete 12/16/16 10:00 Sputum Endotracheal Sputum Culture - Final LIGHT GROWTH NORMAL RESPIRATORY SLAVA Complete 01/02/17 17:30 Urine Catheterized Urine Urine Culture - Final Chaya Albicans Complete Imaging Last Impressions Chest X-Ray 01/09/17 0600 Signed Impressions: Service Date/Time: Monday, January 09, 2017 05:11 - CONCLUSION: 1. Basilar airspace disease similar to January 07. Small effusions. Tracheostomy in good position. Freddie Tubbs MD Abdomen X-Ray 12/26/16 0000 Signed Impressions: Service Date/Time: Monday, December 26, 2016 21:33 - CONCLUSION: Nasogastric tube tip is at the gastric outlet. Nirav Savage MD Liver Ultrasound 12/16/16 0000 Signed Impressions: Service Date/Time: Friday, December 16, 2016 15:25 - CONCLUSION: 1. The liver is prominent with no focal lesion or ascites. 2. The right kidney is small and atrophic in appearance with cortical thinning and no hydronephrosis. There is increased echogenicity most characteristic of medical renal disease. Dylan Bryant MD Renal Ultrasound 12/14/16 0000 Signed Impressions: Service Date/Time: Wednesday, December 14, 2016 18:21 - CONCLUSION: Medical renal disease with echogenic kidneys. There is some atrophy of the right kidney. Nirav Camacho MD Head CT 12/14/16 0000 Signed Impressions: Service Date/Time: Wednesday, December 14, 2016 17:38 - CONCLUSION: Negative for an acute process. Sander Resendiz MD FACR Physical Exam HEENT: Normocephalic; atraumatic; no jaundice CHEST: Tracheostomy, passey darvin valve. Expiratory wheezing. Respiratory in and placed back on Tbar. CARDIAC: RRR ABDOMEN: Soft, obese, slightly distended, nontender, bowel sounds are present in all four quadrants. PEG tube site without redness or swelling. EXTREMITIES: Generalized edema. 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 Nurse reports that she had a small melanotic stool with small amount of maroon tint to it. I flushed and aspirated clear contents from PEG tube (01/08). Pt reports that she last had colonoscopy 2 years ago and this was normal. EGD at time of PEG tube placement (12/27/16) was unremarkable. Will monitor stool. Notify GI of active bleeding. 2 small john colored bowel movements this am per nurse. However, HH has remained stable. She has a large amount of secretions and her breathing becomes labored with minimal exertion. Would monitor for now. As long as HH remains stable, would hold off on colonoscopy. If significant drop in hgb or significant amount of GI bleeding, consider colonoscopy. - Dysphagia, FEN. Pt in ICU, with respiratory failure, severe copd, heraclio, suspected cap, requiring prolonged mechanical ventilation. S/P tracheostomy placement. GI consulted for PEG tube placement. Project Specialist recommends Nepro at 40cc/hr and discontinuing the Steve BID. S/P EGD with peg tube placement (12/27/16)-- -> 1. The upper, middle, and distal third of the esophagus were carefully inspected and no abnormalities were noted. The z- line was well seen at the GEJ. The endoscope was pushed into the fundus which was normal including a retroflexed view. The antrum, first and second part of the duodenum were unremarkable. 2. No abnormalities 3.S/p peg placement. Site without redness or swelling. Tolerating TF. - Respiratory failure, COPD, HERACLIO, Suspected CAP. S/P tracheostomy, Tbar - Acute on chronic kidney disease, DM, encephalopathy, htn, hyperlipidemia, per attending PLAN: - Nepro at 40cc/hr - Monitor HH - Transfuse as necessary - Notify GI of bleeding - Consider colonoscopy if significant drop in hgb or significant GI bleeding - Further recommendations to follow based on results of above - Pt seen and examined by Dr. Munguia and myself and this note is written on her behalf (Callie Sims) Plan Patient was seen and examined, agree with above-noted, minimal john stool but no active bleeding, hemoglobin stable, patient does not want to have a colonoscopy because. Respiratory failure we'll continue monitoring H&H (Bianca Munguia MD) Callie Sims Jan 09, 2017 15:41 Bianca Munguia MD Jan 10, 2017 09:00
[2017-01-09] MEDS: ALPRAZolam 0.5 MG TAB PO PRN (23:28)
[2017-01-10] VITALS (15 sets, daily range): BP systolic 117–154; BP diastolic 60–76; PULSE 60–78; RESP 20–27; TEMP 97.9–98.8; O2SAT 93–97
[2017-01-10] MEDS: INSULIN NovoLIN REGULAR SUPPLEMENTAL SCALE SQ SCH ×4 (02:41→20:52)
[2017-01-10] MEDS: HEPARIN SODIUM - SQ 10,000 UNITS/ML VIAL SQ SCH ×2 (02:41→12:59)
[2017-01-10] MEDS: RESP: ALBUTEROL 2.5 MG/IPRATROPIUM 0.5 MG NEB (SCH) NEB ×4 (03:04→19:57)
[2017-01-10] MEDS: CHLORHEXIDINE GLUCONATE 2 % 1 PACK (2 CLOTHS) TOP SCH (04:00)
[2017-01-10] MEDS: LABETALOL HCL 200 MG TAB PO SCH ×3 (04:09→20:49)
[2017-01-10] MEDS: traMADol HCL 50 MG TAB PO PRN (04:10)
[2017-01-10] MEDS: ISOSORBIDE DINITRATE 10 MG TAB PO SCH ×3 (06:27→20:50)
[2017-01-10] MEDS: cloNIDine HCL 0.3 MG TAB PO SCH ×3 (06:27→20:50)
[2017-01-10] MEDS: hydrALAZINE HCL 100 MG TAB PO SCH ×3 (06:27→20:50)
[2017-01-10] MEDS: NIFEdipine 20 MG CAP PO SCH ×3 (06:27→20:50)
[2017-01-10] MEDS: CHLORHEXIDINE 0.12% (ORAL KIT) 15 ML CUP MT SCH ×2 (08:00→20:00)
--- NOTE | 2017-01-10 08:30 | HHI.GIFU ---
Subjective Remarks Resting in bed. No active bleeding. Respirations even/unlabored on trach collar. No distress. (Callie Sims) Objective Vitals I&O Vital Signs Date Time Temp Pulse Resp B/P (MAP) Pulse Ox O2 Delivery O2 Flow Rate FiO2 01/10/17 06:00 70 01/10/17 04:00 98.4 74 27 151/76 (101) 97 01/10/17 04:00 74 01/10/17 02:00 72 01/10/17 00:00 98.3 68 20 97 01/10/17 00:00 68 01/09/17 22:00 72 01/09/17 20:58 99 Trach Collar 35 01/09/17 20:00 69 01/09/17 20:00 98.6 69 41 148/71 (96) 97 01/09/17 18:00 69 01/09/17 16:00 66 01/09/17 16:00 98.1 66 31 118/69 (85) 97 01/09/17 14:00 77 01/09/17 12:00 69 01/09/17 12:00 98.3 69 34 132/63 (86) 97 01/09/17 10:00 74 01/09/17 09:10 95 Trach Collar 6.00 35 I/O 01/09/17 01/09/17 01/09/17 01/10/17 01/10/17 01/10/17 07:00 15:00 23:00 07:00 15:00 23:00 Intake Total 500 ml 500 ml 240 ml Output Total 1300 ml 1175 ml 300 ml Balance -800 ml -675 ml -60 ml Intake Oral 500 ml 500 ml 240 ml Output Urine Total 1300 ml 1175 ml 300 ml # Voids 0 # Bowel Movements 0 2 Laboratory Date/Time Source Procedure Growth Status 12/15/16 05:03 Blood Peripheral Aerobic Blood Culture - Final NO GROWTH IN 5 DAYS Complete 12/15/16 05:03 Blood Peripheral Anaerobic Blood Culture - Final NO GROWTH IN 5 DAYS Complete 12/16/16 10:00 Sputum Endotracheal Gram Stain - Final Complete 12/16/16 10:00 Sputum Endotracheal Sputum Culture - Final LIGHT GROWTH NORMAL RESPIRATORY SLAVA Complete 01/02/17 17:30 Urine Catheterized Urine Urine Culture - Final Chaya Albicans Complete Imaging Last Impressions Chest X-Ray 01/09/17 0600 Signed Impressions: Service Date/Time: Monday, January 09, 2017 05:11 - CONCLUSION: 1. Basilar airspace disease similar to January 07. Small effusions. Tracheostomy in good position. Freddie Tubbs MD Abdomen X-Ray 12/26/16 0000 Signed Impressions: Service Date/Time: Monday, December 26, 2016 21:33 - CONCLUSION: Nasogastric tube tip is at the gastric outlet. Nirav Savage MD Liver Ultrasound 12/16/16 0000 Signed Impressions: Service Date/Time: Friday, December 16, 2016 15:25 - CONCLUSION: 1. The liver is prominent with no focal lesion or ascites. 2. The right kidney is small and atrophic in appearance with cortical thinning and no hydronephrosis. There is increased echogenicity most characteristic of medical renal disease. Dylan Bryant MD Renal Ultrasound 12/14/16 0000 Signed Impressions: Service Date/Time: Wednesday, December 14, 2016 18:21 - CONCLUSION: Medical renal disease with echogenic kidneys. There is some atrophy of the right kidney. Nirav Camacho MD Head CT 12/14/16 0000 Signed Impressions: Service Date/Time: Wednesday, December 14, 2016 17:38 - CONCLUSION: Negative for an acute process. Sander Resendiz MD FACR Physical Exam HEENT: Normocephalic; atraumatic; no jaundice CHEST: Tracheostomy, tResp. gustavo/unlabored on trach collar. Course breath sounds CARDIAC: RRR ABDOMEN: Soft, obese, slightly distended, nontender, bowel sounds are present in all four quadrants. PEG tube site without redness or swelling. EXTREMITIES: Generalized edema. 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 Nurse reports that she had a small melanotic stool with small amount of maroon tint to it. I flushed and aspirated clear contents from PEG tube (01/08). Pt reports that she last had colonoscopy 2 years ago and this was normal. EGD at time of PEG tube placement (12/27/16) was unremarkable. Will monitor stool. Notify GI of active bleeding. 2 small john colored bowel movements (01/09). No further episodes and her HH has remained stable with this. At this time, we will hold off on colonoscopy. If there is a significant drop in hgb or significant amount of GI bleeding, consider colonoscopy. - Dysphagia, FEN. Pt in ICU, with respiratory failure, severe copd, heraclio, suspected cap, requiring prolonged mechanical ventilation. S/P tracheostomy placement. GI consulted for PEG tube placement. 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 S/P EGD with peg tube placement (12/27/16)-- -> 1. The upper, middle, and distal third of the esophagus were carefully inspected and no abnormalities were noted. The z- line was well seen at the GEJ. The endoscope was pushed into the fundus which was normal including a retroflexed view. The antrum, first and second part of the duodenum were unremarkable. 2. No abnormalities 3.S/p peg placement. Site without redness or swelling. Tolerating TF. - Respiratory failure, COPD, HERACLIO, Suspected CAP. S/P tracheostomy, Tbar - Acute on chronic kidney disease, DM, encephalopathy, htn, hyperlipidemia, per attending PLAN: - Nepro at 40cc/hr - Monitor HH - Transfuse as necessary - Notify GI of bleeding - No further signs of bleeding. WIll consider colonoscopy if significant drop in hgb or significant GI bleeding - GI will sign off, please reconsult for bleeding - Pt seen and examined by Dr. Munguia and myself and this note is written on her behalf (Callie Sims) Plan Patient was seen and examined, agree with above-noted, no active bleeding, patient and procedure done, we will follow up as needed at this time (Bianca Munguia MD) Callie Sims Jan 10, 2017 08:30 Bianca Munguia MD Jan 10, 2017 15:36
[2017-01-10] MEDS: GABAPENTIN 100 MG CAP PO SCH ×3 (09:33→17:54)
[2017-01-10] MEDS: CALCITRIOL 0.25 MCG CAP NG SCH (09:33)
[2017-01-10] MEDS: PANTOPRAZOLE SOD 20 MG DELAYED RELEASE TAB PO SCH (09:33)
[2017-01-10] MEDS: predniSONE 10 MG TAB PO SCH (09:33)
[2017-01-10] MEDS: CHOLECALCIFEROL (VIT D3) 1000 UNIT TAB NG SCH (09:33)
[2017-01-10] MEDS: CALCIUM CARBONATE 1.25 GM (CA 500 MG) TAB PO SCH ×2 (09:33→20:49)
[2017-01-10] MEDS: DOCUSATE SODIUM 100 MG/10 ML UDC PO SCH ×2 (09:33→20:51)
[2017-01-10] MEDS: BUDESONIDE-FORMOTEROL 160/4.5 MCG INHALER INH SCH ×2 (09:41→20:50)
[2017-01-10] MEDS: NYSTATIN 100,000 U/GM PWD 15 GM BTL TOPICAL SCH ×2 (09:41→20:51)
[2017-01-10] MEDS: SODIUM CHLORIDE 0.9% FLUSH 10 ML FLUSH IV FLUSH SCH ×2 (09:42→20:51)
[2017-01-10] MEDS: SODIUM CHLORIDE 0.9% FLUSH 10 ML FLUSH IVF SCH (09:43)
[2017-01-10] MEDS ORDERED: PNEUMOCOCCAL POLYVALENT INJ 25 MCG/0.5 ML SYR IM ONE (10:00)
[2017-01-10] MEDS ORDERED: INFLUENZA VIRUS VACCINE (QUADRIVALENT) 0.5 ML SYR IM ONE (10:00)
--- NOTE | 2017-01-10 10:31 | HHI.PR ---
Subjective Remarks Patient seen at bedside with her nurse Leonidas and to physical therapist She stated that she is doing a lot better. Denied any SOB, CP, palpitations, or lightheadedness or dizziness. she had no complaints. Objective Vitals Vital Signs Date Time Temp Pulse Resp B/P (MAP) Pulse Ox O2 Delivery O2 Flow Rate FiO2 01/10/17 08:48 93 Nasal Cannula 2.00 01/10/17 06:00 70 01/10/17 04:00 98.4 74 27 151/76 (101) 97 01/10/17 04:00 74 01/10/17 02:00 72 01/10/17 00:00 98.3 68 20 97 01/10/17 00:00 68 01/09/17 22:00 72 01/09/17 20:58 99 Trach Collar 35 01/09/17 20:00 69 01/09/17 20:00 98.6 69 41 148/71 (96) 97 01/09/17 18:00 69 01/09/17 16:00 66 01/09/17 16:00 98.1 66 31 118/69 (85) 97 01/09/17 14:00 77 01/09/17 12:00 69 01/09/17 12:00 98.3 69 34 132/63 (86) 97 I/O 01/09/17 01/09/17 01/09/17 01/10/17 01/10/17 01/10/17 07:00 15:00 23:00 07:00 15:00 23:00 Intake Total 500 ml 500 ml 240 ml Output Total 1300 ml 1175 ml 300 ml Balance -800 ml -675 ml -60 ml Intake Oral 500 ml 500 ml 240 ml Output Urine Total 1300 ml 1175 ml 300 ml # Voids 0 # Bowel Movements 0 2 Result Diagram: 01/09/17 0507 01/09/17 0507 Objective Remarks GENERAL:in NAD NECK: Supple, trachea midline. No JVD or lymphadenopathy. trach in place. CARDIOVASCULAR: Regular rate and rhythm without murmurs, gallops, or rubs. RESPIRATORY: Breath sounds equal bilaterally. No accessory muscle use. GASTROINTESTINAL: Abdomen soft, non-tender, nondistended. Medications and IVs Last Impressions Chest X-Ray 01/09/17 0600 Signed Impressions: Service Date/Time: Monday, January 09, 2017 05:11 - CONCLUSION: 1. Basilar airspace disease similar to January 07. Small effusions. Tracheostomy in good position. Freddie Tubbs MD Abdomen X-Ray 12/26/16 0000 Signed Impressions: Service Date/Time: Monday, December 26, 2016 21:33 - CONCLUSION: Nasogastric tube tip is at the gastric outlet. Nirav Savage MD Liver Ultrasound 12/16/16 0000 Signed Impressions: Service Date/Time: Friday, December 16, 2016 15:25 - CONCLUSION: 1. The liver is prominent with no focal lesion or ascites. 2. The right kidney is small and atrophic in appearance with cortical thinning and no hydronephrosis. There is increased echogenicity most characteristic of medical renal disease. Dylan Bryant MD Renal Ultrasound 12/14/16 0000 Signed Impressions: Service Date/Time: Wednesday, December 14, 2016 18:21 - CONCLUSION: Medical renal disease with echogenic kidneys. There is some atrophy of the right kidney. Nirav Camacho MD Head CT 12/14/16 0000 Signed Impressions: Service Date/Time: Wednesday, December 14, 2016 17:38 - CONCLUSION: Negative for an acute process. Sander Resendiz MD FACR A/P Problem List: (1) Acute respiratory failure ICD Code: J96.00 - Acute respiratory failure Status: Acute (2) Hypocalcemia ICD Code: E83.51 - Hypocalcemia (3) COPD with acute exacerbation ICD Code: J44.1 - Acute exacerbation of chronic obstructive airways disease Status: Acute (4) Hyponatremia ICD Code: E87.1 - Hyponatremia Status: Acute (5) Acute kidney injury ICD Code: N17.9 - Acute kidney failure, unspecified Status: Acute (6) DM (diabetes mellitus) ICD Code: E11.9 - Type 2 diabetes mellitus without complications Status: Chronic (7) Urinary retention ICD Code: R33.9 - Retention of urine, unspecified Status: Resolved (8) 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 - Drug or chemical induced diabetes mellitus without complications; T38.0X5A - Adverse effect of glucocorticoids and synthetic analogues, initial encounter Status: Acute (9) Acute renal failure ICD Code: N17.9 - Acute kidney failure, unspecified Status: Acute Assessment and Plan Toxic metabolic Encephalopathy - likely metabolic/CO2 retention, resolved Restless leg syndrome Diabetic neuropathy Awake and alert, avoid sedatives CT brain 12/14 revealed no acute intracranial findings Home gabapentin 300 mg 3 times a day and she was resume gabapentin 01/06 at 100 milligrams 3 times a day Alprazolam 0.5 mg by mouth every 8 hours anxiety Continue tramadol 50 mg as needed for pain management Hypertension History of hypertension History dyslipidemia Pulmonary hypertension likely type III secondary to COPD Continue hydralazine 100 3 times a day, Isordil 10 mg 3 times a day. Nifedipine 40mg every 8 hours, clonidine 0.3 milligram TID. Labetalol 200mg po q8hr. Breakthrough labetalol and hydralazine iv. (Home medications include lisinopril 5 mill grams daily, metoprolol 50 mill grams twice a day, clonidine 0.1 mg 3 times a day, nifedipine 60 mill grams every 12 hours, isosorbide mononitrate 30 mg daily and hydralazine 100 mg 3 times daily.) Echocardiogram 2015 EF 55-60%. No regional wall motion abnormality. LEXIE- 61 mmHg. Mild MR. Echocardiogram 12/14/16 - EF 65-70%. No regional wall motion abnormality. Hyperdynamic state Acute hypoxemic respiratory failure-resolved Severe COPD/O2 dependent, with acute exacerbation HERACLIO/no CPAP at home Probable community-acquired pneumonia s/p Trach 12/26. Tolerating trach collar with 40% FIO2. With #6 Kurt. decannulation per Pulm Albuterol/ipratropium aerosols every 6 hours with albuterol for breakthrough every 2 hours when necessary Prednisone 10mg daily/home dose medication Umeclidinium/Vilanterol 62.5 micrograms/25 micrograms one inhalation daily has been resumed and budesonide/formoterol 160/4.5 2 puffs every [address] Noble Elevated transaminases- resolved s/p PEG tube placement 12/27 Currently on oral diet/Nepro 40 cc previous tube feed dosage Docusate sodium 100 mg twice a day for bowel regimen. Avoid hepatotoxic medications. Evaluated by GI 01/08 for possible GI bleed. Negative workup today. He will be stable. No plans for intervention at the present time. 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 Creatinine stabilized around 2 Renal-Dr. Hoskote. Lara d/c 01/01 per renal. Renal ultrasound 12/14 indicative of medical renal disease with atrophied right kidney Continue Ca carbonate 500 mg every 12 hours. Calcitrol 0.25 mcg daily continue per nephrology. Normocytic anemia Monitor CBC No indication for transfusion of blood product at this time Probable community-acquired pneumonia UTI Urine cx 12/27 & 01/02: C. Albicans. Tinea cruris Fluconazole 100mg daily discontinue 01/05. s/p full course of abx(piperacillin/tazobactam and levofloxacin). UA negative/, sputum neg to date. Blood cultures 12/14 and 12/15 negative to date. Negative urine pneumococcal and Legionella antigens Monitor for signs of infections ( Fever, WBC) Noted last UA with positive Chaya. on nystatin powder twice a day for tinea nazia Prophylaxis - GI -pantoprazole - DVT - SCD/heparin subcutaneous Problem Qualifiers (1) Acute respiratory failure: Qualified Codes: J96.01 - Acute respiratory failure with hypoxia; J96.02 - Acute respiratory failure with hypercapnia (2) DM (diabetes mellitus): Qualified Codes: E13.9 - Other specified diabetes mellitus without complications (3) Acute renal failure: Qualified Codes: N17.9 - Acute kidney failure, unspecified Marlee Carcamo MD Jan 10, 2017 10:30
[2017-01-10 11:30] LABS: MEAN CORPUSCULAR HEMOGLOBIN 30.7 PG (27.0-34.0); MEAN CORPUSCULAR HGB CONC 33.7 % (32.0-36.0); PLATELET COUNT 229 TH/MM3 (150-450); RED BLOOD COUNT 2.64 MIL/MM3 (4.00-5.30); REVIEW FLAG FINAL; WHITE BLOOD COUNT 5.2 TH/MM3 (4.0-11.0)
[2017-01-10 12:04] LABS: BICARBONATE 23.6 MEQ/L (21.0-32.0); POTASSIUM 4.6 MEQ/L (3.5-5.1)
--- NOTE | 2017-01-10 12:43 | HHI.NPPN ---
Subjective Renal Failure: Chronic, Acute, Stage III Interval History She is up in a chair. Feels well. Excellent urine output, no further urinary retention. Creatinine slightly higher today. (Tootie Grant) Review of Systems General Constitutional: Fatigue General Remarks generalized pain (Tootie Grant) Respiratory Lungs: SOB, Cough, Wheeze (Tootie Grant) Objective Data Data Vital Signs Date Time Temp Pulse Resp B/P (MAP) Pulse Ox O2 Delivery O2 Flow Rate FiO2 01/10/17 12:00 98.4 66 22 122/60 (80) 96 01/10/17 12:00 65 01/10/17 10:00 69 01/10/17 08:48 93 Nasal Cannula 2.00 01/10/17 08:00 64 01/10/17 08:00 98.8 70 23 122/60 (80) 95 01/10/17 06:00 70 01/10/17 04:00 98.4 74 27 151/76 (101) 97 01/10/17 04:00 74 01/10/17 02:00 72 01/10/17 00:00 98.3 68 20 97 01/10/17 00:00 68 01/09/17 22:00 72 01/09/17 20:58 99 Trach Collar 35 01/09/17 20:00 69 01/09/17 20:00 98.6 69 41 148/71 (96) 97 01/09/17 18:00 69 01/09/17 16:00 66 01/09/17 16:00 98.1 66 31 118/69 (85) 97 01/09/17 14:00 77 (Tootie Grant) -: 01/10/17 1058 01/10/17 1058 Imaging Last 72 hours Impressions Chest X-Ray 01/09/17 0600 Signed Impressions: Service Date/Time: Monday, January 09, 2017 05:11 - CONCLUSION: 1. Basilar airspace disease similar to January 07. Small effusions. Tracheostomy in good position. Freddie Tubbs MD Tubes & Lines: Raphael Tubes & Lines Comment PEG (Tootie Grant) Physical Exam General Appearance: Well Developed, No Acute Distress, Comfortable, Obese (Tootie Grant) Eyes Eye Exam: Pupils Equal (Tootie Grant [employer]) Throat Throat Exam: Oral Mucosa Schaller & Moist Throat Remarks trach (Tootie Grant) Neck Neck Exam: Neck Supple (Tootie Grant) Pulmonary Resp Exam: Breath Sounds Equal, No Distress, Diminished Breath Sounds (Tootie GrantP) Cardiology CV Exam: Regular, Normal Sinus Rhythm (Tootie Grant) Gastrointestinal/Abdomen GI Exam: Soft, Non-Tender, Bowel Sounds Present GI Remarks + PEG (Tootie Grant [employer]) Musculoskeletal MS Exam: Joints Intact, Normal Tone, Unable to Ambulate (Tootie GrantP) Integumentary Skin Exam: Clear, Warm, Dry (Tootie Grant) Extremeties Extremities Exam: No Edema, Pedal Pulses Palpable (Tootie Grant) Neurologic Neuro Exam: Alert, Awake, Oriented, Speech Clear, Moving All Extremities (Tootie Grant) Psychiatric Psych Exam: Appropriate Responses (Tootie Grant) VTE Prophylaxis Device: SCDs (Tootie Grant) Assessment/Plan Discussed Condition With: Patient Assessment Summary: KAILEE/Acute Renal Failure, Acute Tubular Necrosis, Anemia of CKD, Fluid/Volume Overload, Hypertension, Diabetes Mellitus Problem List: (1) Acute renal failure ICD Codes: N17.9 - Acute kidney failure, unspecified Status: Acute Plan: 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 Renal function had returned to baseline, but is slightly worse today Has had episodes of relative hypotension past few days s/p raphael removal, no retention Avoid nephrotoxic agents. Minimize non essential medications. Repeat labs in AM . (2) HCAP (healthcare-associated pneumonia) ICD Codes: J18.9 - Healthcare-associated pneumonia Status: Acute Plan: Off solumedrol, on oral prednisone. She is also off antibiotics. Monitor clinically (3) Acute respiratory failure ICD Codes: J96.00 - Acute respiratory failure Status: Acute Plan: . S/p tracheostomy 12/26 she is off the vent; has P Valve in place improving, monitor will need rehab after discharge (4) DM (diabetes mellitus) ICD Codes: E11.9 - Type 2 diabetes mellitus without complications Status: Chronic Plan: continue insulin therapy goal 140-180 mg/dL (5) Hypocalcemia ICD Codes: E83.51 - Hypocalcemia Plan: PTH is high due to secondary hyperparathyroidism On Calcitriol and Vitamin D3. 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 Renal function had returned to baseline, but is slightly worse today Has had episodes of relative hypotension past few days s/p raphael removal, no retention Avoid nephrotoxic agents. Minimize non essential medications. Repeat labs in AM . (2) HCAP (healthcare-associated pneumonia) ICD Codes: J18.9 - Healthcare-associated pneumonia Status: Acute Plan: Off solumedrol, on oral prednisone. She is also off antibiotics. Monitor clinically (3) Acute respiratory failure ICD Codes: J96.00 - Acute respiratory failure Status: Acute Plan: . S/p tracheostomy 12/26 she is off the vent; has P Valve in place improving, monitor will need rehab after discharge (4) DM (diabetes mellitus) ICD Codes: E11.9 - Type 2 diabetes mellitus without complications Status: Chronic Plan: continue insulin therapy goal 140-180 mg/dL (5) Hypocalcemia ICD Codes: E83.51 - Hypocalcemia Plan: PTH is high due to secondary hyperparathyroidism On Calcitriol and Vitamin D3. Hypocalcemia has corrected (6) Anemia ICD Codes: D64.9 - Anemia, unspecified Status: Chronic Plan: GI still following; no further dark stools Hb stable monitor Plan patient was seen and examined. Agree with above assessment and plan. (Thomas Blackmon MD) Problem Qualifiers (1) Acute renal failure: Qualified Codes: N17.9 - Acute kidney failure, unspecified (2) Acute respiratory failure: Qualified Codes: J96.01 - Acute respiratory failure with hypoxia; J96.02 - Acute respiratory failure with hypercapnia (3) DM (diabetes mellitus): Qualified Codes: E13.9 - Other specified diabetes mellitus without complications Tootie Grant Jan 10, 2017 12:43 Thomas Blackmon MD Jan 10, 2017 17:42
[2017-01-10] MEDS: UMECLIDINIUM 62.5 MCG/VILANTEROL 25 MCG INHALER INH SCH (12:59)
[2017-01-10] MEDS: RESP: ACETYLCYSTEINE 20% 30 ML NEB NEB SCH (19:57)
[2017-01-10] MEDS: predniSONE 20 MG TAB PO SCH (20:49)
[2017-01-11] VITALS (8 sets, daily range): BP systolic 120–153; BP diastolic 63–83; PULSE 80–86; RESP 15–23; TEMP 98.4–98.5; O2SAT 93–100
[2017-01-11] MEDS: ALPRAZolam 0.5 MG TAB PO PRN ×3 (01:41→22:09)
[2017-01-11] MEDS: INSULIN NovoLIN REGULAR SUPPLEMENTAL SCALE SQ SCH ×4 (01:51→21:00)
[2017-01-11] MEDS: HEPARIN SODIUM - SQ 10,000 UNITS/ML VIAL SQ SCH ×2 (01:51→13:04)
[2017-01-11] MEDS: CHLORHEXIDINE GLUCONATE 2 % 1 PACK (2 CLOTHS) TOP SCH (04:00)
[2017-01-11] MEDS: RESP: ACETYLCYSTEINE 20% 30 ML NEB NEB SCH ×4 (04:32→20:21)
[2017-01-11] MEDS: RESP: ALBUTEROL 2.5 MG/IPRATROPIUM 0.5 MG NEB (SCH) NEB ×4 (04:32→20:21)
[2017-01-11] MEDS: cloNIDine HCL 0.3 MG TAB PO SCH ×3 (06:42→22:09)
[2017-01-11] MEDS: hydrALAZINE HCL 100 MG TAB PO SCH ×3 (06:42→22:08)
[2017-01-11] MEDS: LABETALOL HCL 200 MG TAB PO SCH ×3 (06:42→22:08)
[2017-01-11] MEDS: CHLORHEXIDINE 0.12% (ORAL KIT) 15 ML CUP MT SCH ×2 (08:00→20:00)
[2017-01-11] MEDS: CHOLECALCIFEROL (VIT D3) 1000 UNIT TAB NG SCH (08:47)
[2017-01-11] MEDS: CALCITRIOL 0.25 MCG CAP NG SCH (08:47)
[2017-01-11] MEDS: ISOSORBIDE DINITRATE 10 MG TAB PO SCH ×3 (08:48→22:10)
[2017-01-11] MEDS: GABAPENTIN 100 MG CAP PO SCH ×3 (08:48→16:40)
[2017-01-11] MEDS: NIFEdipine 20 MG CAP PO SCH ×3 (08:48→22:09)
[2017-01-11] MEDS: PANTOPRAZOLE SOD 20 MG DELAYED RELEASE TAB PO SCH (08:48)
[2017-01-11] MEDS: predniSONE 20 MG TAB PO SCH (08:48)
[2017-01-11] MEDS: DOCUSATE SODIUM 100 MG/10 ML UDC PO SCH ×2 (08:49→22:13)
[2017-01-11] MEDS: SODIUM CHLORIDE 0.9% FLUSH 10 ML FLUSH IV FLUSH SCH ×2 (08:49→21:00)
[2017-01-11] MEDS: CALCIUM CARBONATE 1.25 GM (CA 500 MG) TAB PO SCH ×2 (08:52→22:09)
[2017-01-11] MEDS: BUDESONIDE-FORMOTEROL 160/4.5 MCG INHALER INH SCH ×2 (08:57→21:00)
[2017-01-11] MEDS: UMECLIDINIUM 62.5 MCG/VILANTEROL 25 MCG INHALER INH SCH (08:57)
[2017-01-11] MEDS: NYSTATIN 100,000 U/GM PWD 15 GM BTL TOPICAL SCH ×2 (08:58→21:00)
[2017-01-11] MEDS ORDERED: PNEUMOCOCCAL POLYVALENT INJ 25 MCG/0.5 ML SYR IM ONE (09:00)
[2017-01-11] MEDS ORDERED: INFLUENZA VIRUS VACCINE (QUADRIVALENT) 0.5 ML SYR IM ONE (09:00)
[2017-01-11] MEDS: SODIUM CHLORIDE 0.9% FLUSH 10 ML FLUSH IVF SCH (09:00)
--- NOTE | 2017-01-11 12:32 | HHI.PR ---
Subjective Remarks Patient complaining of shortness of breathing and wheezing. Patient stated that she was doing fine until she was transfer to the floor this morning. She remains afebrile. Patient is asking to restart Mucinex. She stated that helped her a lot with this. Deny any pain. She has not received any nebulizer treatment recently. Discussed with patient's nurse at the bedside. Objective Vitals Vital Signs Date Time Temp Pulse Resp B/P (MAP) Pulse Ox O2 Delivery O2 Flow Rate FiO2 01/11/17 10:28 95 Nasal Cannula 3.00 01/11/17 08:00 98.5 86 15 153/83 (106) 93 01/11/17 06:00 98.4 80 23 120/64 (82) 96 01/11/17 05:26 98 Trach Collar 35 01/11/17 02:38 96 Trach Collar 35 01/10/17 22:00 97.9 78 24 117/71 (86) 94 01/10/17 20:00 76 01/10/17 20:00 98.2 76 26 154/75 (101) 96 01/10/17 19:57 96 Trach Collar 35 01/10/17 18:00 74 01/10/17 16:00 60 01/10/17 16:00 98.3 66 22 128/69 (88) 96 01/10/17 14:00 71 I/O 01/10/17 01/10/17 01/10/17 01/11/17 01/11/17 01/11/17 07:00 15:00 23:00 07:00 15:00 23:00 Intake Total 240 ml 720 ml 0 ml Output Total 300 ml 500 ml Balance -60 ml 220 ml 0 ml Intake Oral 240 ml 720 ml 0 ml Output Urine Total 300 ml 500 ml # Voids 2 1 # Bowel Movements 0 Result Diagram: 01/10/17 1058 01/10/17 1058 Objective Remarks GENERAL: Patient has increased work of breathing. NECK: Supple, trachea midline. No JVD or lymphadenopathy. trach in place. CARDIOVASCULAR: Regular rate and rhythm without murmurs, gallops, or rubs. RESPIRATORY: Bilateral diffuse expiratory wheezing. Audible without stethoscope. No rhonchi. No abdominal breathing. Patient is not using any accessory muscle. GASTROINTESTINAL: Abdomen soft, non-tender, nondistended. Medications and IVs Current Medications Sodium Chloride (NS Flush) 2 ml UNSCH PRN IVF FLUSH AFTER USING IV ACCESS; Start 12/14/16 at 14:15; Stop 12/16/16 at 08:01; Status DC Methylprednisolone Sodium Succinate (SoluMEDROL INJ) 125 mg ONCE ONCE IVP Last administered on 12/14/16 14:41; Start 12/14/16 at 14:15; Stop 12/14/16 at 14: 16; Status DC Albuterol Sulfate (Albuterol Neb) 2.5 mg Q15M INH Last administered on 14:19; Start 12/14/16 at 14:15; Stop 12/14/16 at 14:46; Status DC Magnesium Sulfate/ Dextrose 100 ml @ 100 mls/hr ONCE ONCE IV Last administered on 12/14/16 14:40; Start 12/14/16 at 14:15; Stop 12/14/16 at 15:14; Status DC Etomidate (Amidate Inj) 20 mg STK-MED ONCE .ROUTE ; Start 12/14/16 at 15:09; Stop 12/14/16 at 15:10; Status DC Succinylcholine Chloride (Quelicin Inj) 200 mg STK-MED ONCE .ROUTE ; Start at 15:09; Stop 12/14/16 at 15:10; Status DC Midazolam HCl (Versed Inj) 1 mg ONCE ONCE IV PUSH Last administered on 16:08; Start 12/14/16 at 15:45; Stop 12/14/16 at 15:46; Status DC Midazolam HCl 100 ml @ 2 mls/hr TITRATE PRN IV SEDATION Last administered on 13:50; Start 12/14/16 at 15:45; Stop 12/22/16 at 11:39; Status DC Sodium Chloride 1,000 ml @ 999 mls/hr BOLUS ONCE IV Last administered on 16:07; Start 12/14/16 at 15:45; Stop 12/14/16 at 16:45; Status DC Midazolam HCl 100 ml @ As Directed STK-MED ONCE .ROUTE ; Start 12/14/16 at 15:38 ; Stop 12/14/16 at 15:39; Status DC Furosemide (Lasix Inj) 20 mg ONCE ONCE IV PUSH Last administered on 12/14/16 17:14; Start 12/14/16 at 16:00; Stop 12/14/16 at 16:01; Status DC Calcium Chloride 2 gm/Sodium Chloride 120 ml @ 120 mls/hr ONCE ONCE IV Last administered on 12/14/16 23:10; Start 12/14/16 at 17:00; Stop 12/14/16 at 17:59; Status DC Sodium Chloride 1,000 ml @ 84 mls/hr [id number] IV Last administered on 12/14/16 17:14; Start 12/14/16 at 16:00; Stop 12/14/16 at 17:28; Status DC Sodium Chloride (NS Flush) 2 ml UNSCH PRN IV FLUSH FLUSH AFTER USING IV ACCESS Last administered on 12/26/16 13:54; Start 12/14/16 at 16:00 Sodium Chloride (NS Flush) 2 ml BID IV FLUSH Last administered on 01/11/17 08: 49; Start 12/14/16 at 21:00 Acetaminophen (Tylenol) 650 mg Q6H PRN PO PAIN 1-10 AND/OR FEVER >101F; Start 12/14/16 at 16:00; Stop 12/29/16 at 09:40; Status DC Famotidine (Pepcid Inj) 10 mg Q12HR IV PUSH Last administered on 01/03/17 09: 24; Start 12/14/16 at 21:00; Stop 01/03/17 at 11:50; Status DC Artificial Tears (Tears Naturale Opth Soln) 1 drop TID EACH EYE Last administered on 01/03/17 09:22; Start 12/14/16 at 18:00; Stop 01/05/17 at 10:17 ; Status DC Ondansetron HCl (Zofran Inj) 4 mg Q6H PRN IV NAUSEA OR VOMITING; Start 12/14/16 at 16:00 Albuterol/ Ipratropium (Duoneb Neb) 1 ampule Q4HR NEB INH Last administered on 12/17/16 15:45; Start 12/14/16 at 16:00; Stop 12/17/16 at 17:33; Status DC Albuterol Sulfate (Albuterol Neb) 2.5 mg Q2HR NEB PRN INH SOB/WHEEZING Last administered on 01/11/17 12:33; Start 12/14/16 at 16:00 Heparin Sodium (Porcine) (Heparin Inj) 5,000 units Q12H SQ Last administered on 01/03/17 15:48; Start 12/14/16 at 17:00; Stop 01/03/17 at 17:55; Status DC Miscellaneous Information 1 [id number] ; Start 12/14/16 at 16:00 Chlorhexidine Gluconate (Chlorhexidine 2% Cloth) Taper DAILY@04 TOP Last administered on 01/11/17 04:00; Start 12/15/16 at 04:00; Stop 12/11/17 at 03:59 Chlorhexidine Gluconate (Chlorhexidine 2% Cloth) 3 pack UNSCH PRN TOP HYGIENIC CARE; Start 12/14/16 at 16:00 Senna/Docusate Sodium (Alma-Colace) 1 tab BID PO Last administered on 09:25; Start 12/14/16 at 21:00; Stop 01/03/17 at 11:57; Status DC Magnesium Hydroxide (Milk Of Magnesia Liq) 30 ml Q12H PRN PO MILD - MODERATE CONSTIPATION; Start 12/14/16 at 16:00 Sennosides (Senokot) 17.2 mg Q12H PRN PO MODERATE - SEVERE CONSTIPATION; Start 12/14/16 at 16:00 Bisacodyl (Dulcolax Supp) 10 mg DAILY PRN RECTAL SEVERE CONSITIPATION; Start at 16:00 Lactulose (Lactulose Liq) 30 ml DAILY PRN PO SEVERE CONSITIPATION; Start at 16:00 Chlorhexidine Gluconate (Peridex 0.12% Liq) 15 ml BID@08,20 MT Last administered on 01/08/17 20:00; Start 12/14/16 at 20:00 Propofol 100 ml @ 2.34 mls/hr TITRATE PRN IV SEDATION Last administered on 04:45; Start 12/14/16 at 16:00; Stop 12/30/16 at 08:04; Status DC Fentanyl Citrate 250 ml @ 5 mls/hr TITRATE PRN IV SEDATION Last administered on 12/16/16 02:23; Start 12/14/16 at 16:00; Stop 12/15/16 at 17:18; Status DC Etomidate (Amidate Inj) 20 mg ONCE ONCE IV PUSH ; Start 12/14/16 at 16:45; Stop 12/14/16 at 16:46; Status DC Succinylcholine Chloride (Quelicin Inj) 50 mg ONCE ONCE IV PUSH Last administered on 12/14/16 16:36; Start 12/14/16 at 16:45; Stop 12/14/16 at 16:46; Status DC Phenylephrine HCl 160 mg/Dextrose 500 ml @ 7.5 mls/hr TITRATE PRN IV Blood pressure management; Start 12/14/16 at 16:45; Stop 12/17/16 at 11:05; Status DC Terbutaline Sulfate (Brethine Inj) 1 mg UNSCH PRN SQ For Extravasation; Start 12/14/16 at 16:45; Stop 12/22/16 at 11:39; Status DC Sodium Chloride (NS Flush) DAILY IVF Last administered on 01/10/17 09:43; Start 12/15/16 at 09:00 Sodium Chloride (NS Flush) UNSCH PRN IVF SEE PROTOCOL; Start 12/14/16 at 16:45 Budesonide (Pulmicort Respule Neb) 0.5 mg Q12HR NEB NEB Last administered on 21:20; Start 12/14/16 at 20:00; Stop 01/09/17 at 08:58; Status DC Methylprednisolone Sodium Succinate (SoluMEDROL INJ) 60 mg Q6HR IV PUSH Last administered on 12/18/16 17:00; Start 12/14/16 at 18:00; Stop 12/18/16 at 19:01; Status DC Piperacillin Sod/ Tazobactam Sod 50 ml @ 100 mls/hr Q8H IV Last administered on 12/21/16 23:53; Start 12/14/16 at 18:00; Stop 12/22/16 at 12:01; Status DC Azithromycin 500 mg/Sodium Chloride 250 ml @ 250 mls/hr Q24H IV Last administered on 12/14/16 20:28; Start 12/14/16 at 20:00; Stop 12/14/16 at 20:59; Status DC Pharmacy Profile Note 0 ml @ 0 mls/hr UNSCH OTHER ; Start 12/14/16 at 17:15; Stop 12/22/16 at 11:51; Status DC Vancomycin HCl 1250 mg/Sodium Chloride 262.5 ml @ 250 mls/hr ONCE ONCE IV Last administered on 12/14/16 23:30; Start 12/14/16 at 18:00; Stop 12/14/16 at 19: 02; Status DC Bumetanide (Bumex Inj) 1 mg BID@09,18 IV PUSH ; Start 12/14/16 at 18:00; Stop 12/14/16 at 18:00; Status DC Bumetanide (Bumex Inj) 2 mg BID@09,18 IV PUSH Last administered on 12/16/16 17: 43; Start 12/14/16 at 18:00; Stop 12/22/16 at 11:55; Status DC Bumetanide (Bumex Inj) 1 mg ONCE ONCE IV PUSH ; Start 12/14/16 at 17:45; Stop at 17:47; Status DC Azithromycin 250 mg/Sodium Chloride 250 ml @ 250 mls/hr Q24H IV ; Start at 20:00; Stop 12/15/16 at 20:00; Status DC Sodium Chloride 1,000 ml @ 999 mls/hr BOLUS ONCE IV ; Start 12/14/16 at 19:30; Stop 12/14/16 at 20:30; Status DC Sodium Bicarbonate (Sodium Bicarbonate 8.4% Inj) 100 meq ONCE ONCE IV PUSH Last administered on 12/14/16 23:09; Start 12/14/16 at 20:00; Stop 12/14/16 at 20: 02; Status DC Sodium Bicarbonate 150 meq/Sterile Water 1,000 ml @ 30 mls/hr Q24H IV Last administered on 12/14/16 23:09; Start 12/14/16 at 20:00; Stop 12/15/16 at 09:22; Status DC Epoprostenol Sodium 62.5 ml/ Sodium Chloride 100 ml @ 8 mls/hr Q8H NEB Last administered on 12/15/16 07:43; Start 12/14/16 at 22:00; Stop 12/15/16 at 15:43; Status DC Sodium Chloride 1,000 ml @ 999 mls/hr BOLUS ONCE IV Last administered on 23:31; Start 12/14/16 at 23:00; Stop 12/15/16 at 00:00; Status DC Sodium Chloride 1,000 ml @ 999 mls/hr BOLUS ONCE IV Last administered on 08:14; Start 12/15/16 at 08:00; Stop 12/15/16 at 09:00; Status DC Calcium Chloride 2 gm/Sodium Chloride 120 ml @ 120 mls/hr ONCE ONCE IV Last administered on 12/15/16 08:31; Start 12/15/16 at 08:00; Stop 12/15/16 at 09:00; Status DC Levofloxacin/ Dextrose 100 ml @ 100 mls/hr Q48H IV Last administered on 08:30; Start 12/15/16 at 09:00; Stop 12/22/16 at 12:01; Status DC Dextrose (D50w (Vial) Inj) 50 ml UNSCH PRN IV HYPOGLYCEMIA-SEE COMMENTS; Start 12/15/16 at 09:00; Stop 12/31/16 at 08:58; Status DC Glucagon (Glucagon Inj) 1 mg UNSCH PRN OTHER HYPOGLYCEMIA-SEE COMMENTS; Start 12/15/16 at 09:00; Stop 12/31/16 at 08:58; Status DC Insulin Aspart (NovoLOG SUPPLEMENTAL SCALE) 1 Q4HR SQ Last administered on 12/30 20:00; Start 12/15/16 at 12:00; Stop 12/31/16 at 08:51; Status DC Arginine HCl (Steve Powder) 1 pack BID G-[id number] Last administered on 12/29/16 21 :00; Start 12/15/16 at 09:00; Stop 12/31/16 at 09:04; Status DC Sodium Chloride 1,000 ml @ 84 mls/hr [id number] IV Last administered on 12/15/16 21:49; Start 12/15/16 at 09:30; Stop 12/16/16 at 07:23; Status DC Epoprostenol Sodium 50 ml/ Sodium Chloride 100 ml @ 8 mls/hr ONCE ONCE NEB Last administered on 12/15/16 15:44; Start 12/15/16 at 16:00; Stop 12/16/16 at 04: 29; Status DC Epoprostenol Sodium 37.5 ml/ Sodium Chloride 100 ml @ 8 mls/hr ONCE ONCE NEB Last administered on 12/16/16 04:48; Start 12/16/16 at 00:00; Stop 12/16/16 at 12: 29; Status DC Epoprostenol Sodium 25 ml/ Sodium Chloride 100 ml @ 8 mls/hr ONCE ONCE NEB Last administered on 12/16/16 08:25; Start 12/16/16 at 08:00; Stop 12/16/16 at 20: 29; Status DC Epoprostenol Sodium 12.5 ml/ Sodium Chloride 100 ml @ 8 mls/hr ONCE ONCE NEB Last administered on 12/16/16 16:01; Start 12/16/16 at 16:00; Stop 12/17/16 at 04: 01; Status DC Hydralazine HCl (Apresoline) 100 mg Q8HR PO Last administered on 01/11/17 13: 07; Start 12/15/16 at 14:00 Clevidipine 50 ml @ 2 mls/hr TITRATE PRN IV Blood Pressure Management; Start at 10:30; Stop 12/17/16 at 17:33; Status DC Isosorbide Dinitrate (Isordil) 10 mg Q8HR PO Last administered on 01/11/17 13: 08; Start 12/15/16 at 14:00 Hydralazine HCl (Apresoline Inj) 10 mg Q1HR PRN IV PUSH SBP>160, DBP>90 Last administered on 12/31/16 11:27; Start 12/15/16 at 10:30; Stop 01/10/17 at 18:52 ; Status DC Nitroglycerin (Nitroglycerin 2% Oint) 2 inch Q6HR PRN TOPICAL SBP>160, DBP>90 Last administered on 12/26/16 13:47; Start 12/15/16 at 10:30 Fentanyl Citrate 250 ml @ 5 mls/hr TITRATE PRN IV SEDATION Last administered on 12/26/16 17:36; Start 12/15/16 at 10:30; Stop 12/30/16 at 08:04; Status DC Calcium Chloride 2 gm/Sodium Chloride 120 ml @ 120 mls/hr ONCE ONCE IV ; Start 12/15/16 at 17:15; Stop 12/15/16 at 17:25; Status DC Calcium Chloride 2 gm/Sodium Chloride 120 ml @ 120 mls/hr ONCE ONCE IV Last administered on 12/15/16 18:04; Start 12/15/16 at 18:00; Stop 12/15/16 at 18:59; Status DC Nifedipine (Procardia) 10 mg Q8HR PO Last administered on 12/16/16 13:27; Start 12/16/16 at 14:00; Stop 12/16/16 at 17:53; Status DC Clonidine (Catapres) 0.1 mg Q12HR PO Last administered on 12/17/16 08:04; Start 12/16/16 at 09:00; Stop 12/17/16 at 11:17; Status DC Polyethylene Glycol (Miralax) 17 gm BID OG-TUBE Last administered on 12/29/16 21:17; Start 12/16/16 at 09:00; Stop 12/31/16 at 09:04; Status DC Lactulose (Lactulose Liq) 30 ml BID OG-TUBE Last administered on 12/29/16 21: 18; Start 12/16/16 at 09:00; Stop 12/31/16 at 09:04; Status DC Mineral Oil (Mineral Oil Liq) 30 ml ONCE ONCE NG Last administered on 08:33; Start 12/16/16 at 08:15; Stop 12/16/16 at 08:16; Status DC Vancomycin HCl 1250 mg/Sodium Chloride 262.5 ml @ 250 mls/hr ONCE ONCE IV Last administered on 12/16/16 11:33; Start 12/16/16 at 11:00; Stop 12/16/16 at 12: 02; Status DC Nifedipine (Procardia) 20 mg Q8HR PO Last administered on 12/18/16 06:00; Start 12/16/16 at 22:00; Stop 12/18/16 at 08:43; Status DC Cisatracurium Besylate (Nimbex Inj) 18 mg ONCE ONCE IV PUSH Last administered on 12/17/16 01:30; Start 12/17/16 at 01:30; Stop 12/17/16 at 01:37; Status DC Cisatracurium Besylate 100 mg/ Sodium Chloride 260 ml @ 14.04 mls/ hr TITRATE PRN IV TOF 1/4 Last administered on 12/17/16 02:10; Start 12/17/16 at 01:30; Stop 12/17/16 at 07:25; Status DC Artificial Tears (Lacrilube Opht Oint) 1 applic Q12HR EACH EYE Last administered on 01/03/17 09:21; Start 12/17/16 at 09:00; Stop 01/03/17 at 11:50 ; Status DC Bumetanide 100 ml @ 4 mls/hr Q24H IV Last administered on 12/19/16 06:00; Start 12/17/16 at 02:34; Stop 12/19/16 at 09:26; Status DC Epoprostenol Sodium 12.5 ml/ Sodium Chloride 100 ml @ 8 mls/hr ONCE ONCE NEB Last administered on 12/17/16 02:00; Start 12/17/16 at 04:15; Stop 12/17/16 at 16: 44; Status DC Calcium Chloride 2 gm/Dextrose 120 ml @ 120 mls/hr ONCE ONCE IV Last administered on 12/17/16 04:30; Start 12/17/16 at 04:30; Stop 12/17/16 at 05:29; Status DC Cisatracurium Besylate 100 mg/ Sodium Chloride 250 ml @ 13.96 mls/ hr TITRATE PRN IV TOF goal 1/4 Last administered on 12/17/16 08:03; Start 12/17/16 at 07:30 ; Stop 12/18/16 at 08:40; Status DC Calcium Acetate (Phoslo) 667 mg TID PO Last administered on 12/28/16 09:14; Start 12/17/16 at 13:00; Stop 12/28/16 at 09:58; Status DC Clonidine (Catapres) 0.3 mg Q8HR PO Last administered on 01/11/17 13:07; Start 12/17/16 at 14:00 Albuterol/ Ipratropium (Duoneb Neb) 1 ampule Q4HR NEB INH Last administered on 12/21/16 12:04; Start 12/17/16 at 20:00; Stop 12/21/16 at 15:36; Status DC Clevidipine 50 ml @ 2 mls/hr TITRATE PRN IV Blood Pressure Management; Start at 17:45; Stop 12/18/16 at 08:40; Status DC Hydromorphone HCl (Dilaudid) 1 mg Q6H PO Last administered on 12/28/16 05:17; Start 12/17/16 at 18:00; Stop 12/28/16 at 07:29; Status DC Nicardipine HCl 25 mg/Sodium Chloride 260 ml @ 52 mls/hr TITRATE PRN IV Blood pressure management Last administered on 12/18/16 00:14; Start 12/17/16 at 23:45 ; Stop 12/22/16 at 11:39; Status DC Sodium Chloride 1,000 ml @ 10 mls/hr Q24H IV Last administered on 12/30/16 03 :00; Start 12/18/16 at 03:00; Stop 12/30/16 at 08:04; Status DC Potassium Chloride 100 ml @ 50 mls/hr Q2H IV Last administered on 12/18/16 11: 28; Start 12/18/16 at 09:00; Stop 12/18/16 at 12:59; Status DC Nifedipine (Procardia) 40 mg Q8HR PO Last administered on 01/11/17 13:08; Start 12/18/16 at 14:00 Calcium Chloride 2 gm/Dextrose 120 ml @ 120 mls/hr ONCE ONCE IV Last administered on 12/18/16 12:08; Start 12/18/16 at 11:30; Stop 12/18/16 at 12:29; Status DC Calcium Gluconate (Calcium Gluconate Inj) 1 gm ONCE ONCE IV PUSH ; Start at 09:30; Stop 12/18/16 at 11:16; Status DC Calcitriol (Rocaltrol) 0.25 mcg DAILY NG Last administered on 01/11/17 08:47; Start 12/18/16 at 10:30 Cholecalciferol (Vitamin D3) 2,000 units DAILY NG Last administered on 08:47; Start 12/18/16 at 10:30 Methylprednisolone Sodium Succinate (SoluMEDROL INJ) 40 mg Q6HR IV PUSH Last administered on 12/21/16 12:49; Start 12/19/16 at 00:00; Stop 12/21/16 at 13:57; Status DC Insulin Detemir (Levemir Inj) 10 units Q12HR SQ Last administered on 12/30/16 23:34; Start 12/18/16 at 21:00; Stop 12/31/16 at 08:49; Status DC Bumetanide (Bumex Inj) 1 mg TID IV PUSH Last administered on 12/22/16 08:26; Start 12/19/16 at 13:00; Stop 12/22/16 at 11:55; Status DC Sodium Chloride 1,000 ml @ 0 mls/hr Q0M PRN OTHER For Prime & Rinse Back Last administered on 12/25/16 14:01; Start 12/20/16 at 08:05 Heparin Sodium (Porcine) (Heparin Inj) 8,000 units UNSCH PRN IVF WITH DIALYSIS ; Start 12/20/16 at 08:15 Sodium Chloride 1,000 ml @ 200 mls/hr Q5H PRN IV WITH DIALYSIS; Start 12/20/16 at 08:05 Sodium Chloride 1,000 ml @ 0 mls/hr Q0M PRN OTHER WITH DIALYSIS; Start 12/20/16 at 08:05 Mannitol (Mannitol Inj) 12.5 gm UNSCH PRN IV WITH DIALYSIS; Start 12/20/16 at 08 :15 Albumin Human (Albumin 25% Inj) 25 gm UNSCH PRN IV WITH DIALYSIS Last administered on 12/27/16 16:51; Start 12/20/16 at 08:15 Sodium Chloride (NS Flush) 5 ml UNSCH PRN IV FLUSH WITH DIALYSIS Last administered on 12/25/16 14:01; Start 12/20/16 at 08:15 Heparin Sodium (Porcine) (Heparin Inj) UNSCH PRN .XX WITH DIALYSIS Last administered on 12/27/16 16:51; Start 12/20/16 at 08:15 Gentamicin Sulfate (Gentamicin (Dialysis) Inj) 20 mg UNSCH PRN IV WITH DIALYSIS Last administered on 12/27/16 16:51; Start 12/20/16 at 08:15 Ondansetron HCl (Zofran Inj) 4 mg UNSCH PRN IV WITH DIALYSIS; Start 12/20/16 at 08:15 Acetaminophen (Tylenol) 650 mg UNSCH PRN PO for headach, pain, temp > 101F Last administered on 01/05/17 14:19; Start 12/20/16 at 08:15 Diphenhydramine HCl (Benadryl) 25 mg UNSCH PRN PO for hives/itching/anaphylaxis ; Start 12/20/16 at 08:15 Nitroglycerin (Nitrostat Sl) 0.4 mg UNSCH PRN SL CHEST PAIN; Start 12/20/16 at 08:15 Clonidine (Catapres) 0.1 mg UNSCH PRN PO for BP > 180/100 X 2 readings Last administered on 12/22/16 10:37; Start 12/20/16 at 08:15; Stop 12/22/16 at 11:39; Status DC Gelatin (Gelfoam 12 Mm/7 Mm Top) 1 foam UNSCH PRN TOP SEE LABEL COMMENTS; Start 12/20/16 at 08:15 Calcium Gluconate 2 gm/Dextrose 120 ml @ 120 mls/hr ONCE ONCE IV Last administered on 12/20/16 10:41; Start 12/20/16 at 10:00; Stop 12/20/16 at 10:59; Status DC Calcium Gluconate (Calcium Gluconate) 1,000 mg DAILY PO ; Start 12/20/16 at 09:00 ; Stop 12/20/16 at 11:29; Status DC Rocuronium [place] (Zemuron Inj) 50 mg BOLUS ONCE IV Last administered on 12:00; Start 12/20/16 at 08:45; Stop 12/20/16 at 08:46; Status DC Vancomycin HCl 1250 mg/Sodium Chloride 262.5 ml @ 250 mls/hr ONCE ONCE IV Last administered on 12/20/16 10:41; Start 12/20/16 at 11:00; Stop 12/20/16 at 12: 02; Status DC Calcium Carbonate (Oscal) 250 mg DAILY PO ; Start 12/21/16 at 09:00; Stop at 09:00; Status DC Calcium Carbonate (Oscal) 500 mg DAILY PO Last administered on 12/21/16 08:31; Start 12/20/16 at 12:00; Stop 12/21/16 at 16:31; Status DC Methylprednisolone Sodium Succinate (SoluMEDROL INJ) 40 mg Q8HR IV PUSH Last administered on 12/27/16 04:46; Start 12/21/16 at 22:00; Stop 12/27/16 at 09:46 ; Status DC Calcium Chloride 2 gm/Dextrose 120 ml @ 120 mls/hr ONCE ONCE IV Last administered on 12/21/16 16:42; Start 12/21/16 at 15:30; Stop 12/21/16 at 16:29; Status DC Albuterol/ Ipratropium (Duoneb Neb) 1 ampule Q4HR NEB INH Last administered on 12/25/16 11:19; Start 12/21/16 at 16:00; Stop 12/25/16 at 11:32; Status DC Albuterol/ Ipratropium (Duoneb Neb) 1 ampule Q4HR NEB INH ; Start 12/21/16 at 16 :00; Status UNV Calcium Carbonate (Oscal) 500 mg Q12H PO Last administered on 01/11/17 08:52; Start 12/21/16 at 21:00 Calcium Gluconate 2 gm/Sodium Chloride 120 ml @ 60 mls/hr ONCE ONCE IV Last administered on 12/22/16 10:09; Start 12/22/16 at 10:00; Stop 12/22/16 at 11:59; Status DC Labetalol HCl (Trandate Inj) 20 mg Q15M PRN IV PUSH sbp > 160 Last administered on 12/23/16 01:55; Start 12/22/16 at 13:00 Hydralazine HCl (Apresoline Inj) 10 mg Q30M PRN IV PUSH sbp > 160; Start at 13:00; Stop 12/22/16 at 13:00; Status DC Hydralazine HCl (Apresoline) 50 mg Q8HR PO ; Start 12/22/16 at 11:45; Stop at 12:14; Status DC Labetalol HCl (Trandate) 200 mg Q8H PO Last administered on 01/11/17 13:07; Start 12/22/16 at 12:00 Albuterol/ Ipratropium (Duoneb Neb) 1 ampule Q4HR NEB INH Last administered on 12/29/16 08:18; Start 12/25/16 at 12:00; Stop 12/29/16 at 11:15; Status DC Midazolam HCl (Versed Inj) 5 mg ONCE ONCE IV PUSH Last administered on 11:00; Start 12/26/16 at 09:00; Stop 12/26/16 at 09:11; Status DC Fentanyl Citrate (fentaNYL INJ) 250 mcg ONCE ONCE IV PUSH ; Start 12/26/16 at 09:00; Stop 12/26/16 at 09:10; Status DC Rocuronium [place] (Zemuron Inj) 100 mg BOLUS ONCE IV Last administered on 11:00; Start 12/26/16 at 09:00; Stop 12/26/16 at 09:11; Status DC Fentanyl Citrate (fentaNYL INJ) 250 mcg ONCE ONCE IV PUSH Last administered on 12/26/16 12:05; Start 12/26/16 at 11:00; Stop 12/26/16 at 11:01; Status DC Lidocaine/ Epinephrine (Xylocaine-Epi 1%-1:100,000 Inj) 30 ml STK-MED ONCE .ROUTE ; Start 12/26/16 at 11:23; Stop 12/26/16 at 11:24; Status DC Methylprednisolone Sodium Succinate (SoluMEDROL INJ) 40 mg Q12HR IV PUSH Last administered on 12/29/16 09:22; Start 12/27/16 at 21:00; Stop 12/29/16 at 11:15 ; Status DC Cefazolin Sodium (Ancef Inj) 500 mg ONCE ONCE IM ; Start 12/27/16 at 10:00; Stop 12/27/16 at 10:01; Status Cancel Cefazolin Sodium 500 mg/Sodium Chloride 100 ml @ 200 mls/hr Q8H IV ; Start at 14:00; Status Cancel Cefazolin Sodium 500 mg/Sodium Chloride 100 ml @ 200 mls/hr ONCE ONCE IV Last administered on 12/27/16 14:26; Start 12/27/16 at 14:15; Stop 12/27/16 at 14:44; Status DC Propofol (Diprivan 200 Mg/20 ml Inj) 200 mg STK-MED ONCE IV ; Start 12/27/16 at 15:09; Stop 12/27/16 at 17:13; Status DC Fluconazole (Diflucan) 100 mg DAILY PO Last administered on 01/05/17 09:10; Start 12/29/16 at 10:00; Stop 01/05/17 at 09:59; Status DC Albuterol/ Ipratropium (Duoneb Neb) 1 ampule Q4HR NEB INH Last administered on 12/30/16 12:08; Start 12/29/16 at 12:00; Stop 12/30/16 at 13:44; Status DC Methylprednisolone Sodium Succinate (SoluMEDROL INJ) 40 mg DAILY IV PUSH Last administered on 01/03/17 09:24; Start 12/30/16 at 09:00; Stop 01/03/17 at 11:57 ; Status DC Potassium Phosphate 15 mmol/ Sodium Chloride 155 ml @ 38.75 mls/ hr ONCE ONCE IV Last administered on 12/29/16 12:57; Start 12/29/16 at 11:45; Stop at 15:44; Status DC Potassium Chloride (KCl Powder) 40 meq NOW PO Last administered on 12/30/16 00 :48; Start 12/30/16 at 00:15; Stop 12/30/16 at 02:00; Status DC Albuterol/ Ipratropium (Duoneb Neb) 1 ampule QID NEB INH Last administered on 01/03/17 11:05; Start 12/30/16 at 16:00; Stop 01/03/17 at 11:28; Status DC Dextrose (D50w (Vial) Inj) 50 ml UNSCH PRN IV HYPOGLYCEMIA-SEE COMMENTS; Start 12/31/16 at 09:00 Glucagon (Glucagon Inj) 1 mg UNSCH PRN OTHER HYPOGLYCEMIA-SEE COMMENTS; Start 12/31/16 at 09:00 Insulin Human Regular (NovoLIN R SUPPLEMENTAL SCALE) 1 Q6H SQ Last administered on 01/11/17 08:50; Start 12/31/16 at 09:00 Alprazolam (Xanax) 0.5 mg Q8H PRN PO anxiety Last administered on 01/11/17 11: 41; Start 01/01/17 at 14:45 Albuterol Sulfate (Albuterol Neb) 2.5 mg STK-MED ONCE .ROUTE ; Start 01/01/17 at 19:46; Stop 01/01/17 at 19:47; Status DC Epoetin Amauri (Epogen Inj) 20,000 units ONCE ONCE SQ Last administered on 11:02; Start 01/03/17 at 08:45; Stop 01/03/17 at 08:49; Status DC Albuterol/ Ipratropium (Duoneb Neb) 1 ampule QID NEB INH Last administered on 01/07/17 15:15; Start 01/03/17 at 16:00; Stop 01/07/17 at 15:59; Status DC Docusate Sodium (Colace) 100 mg BID PO ; Start 01/03/17 at 21:00; Status UNV Pantoprazole Sodium (Protonix) 20 mg DAILY PO Last administered on 01/11/17 08 :48; Start 01/04/17 at 09:00 Methylprednisolone Sodium Succinate (SoluMEDROL INJ) 20 mg DAILY IV PUSH ; Start 01/04/17 at 09:00; Stop 01/04/17 at 09:00; Status DC Docusate Sodium (Colace Liq) 100 mg Q12HR PO Last administered on 01/10/17 09: 33; Start 01/03/17 at 21:00 Prednisone (Deltasone) 10 mg DAILY PO Last administered on 01/10/17 09:33; Start 01/04/17 at 09:00; Stop 01/10/17 at 13:01; Status DC Tramadol HCl (Ultram) 50 mg Q6H PRN PO breakthrough pain Last administered on 04:10; Start 01/03/17 at 15:30 Gabapentin (Neurontin) 100 mg TID PO Last administered on 01/11/17 13:07; Start 01/06/17 at 13:00 Heparin Sodium (Porcine) (Heparin Inj) 5,000 units Q12H SQ Last administered on 01/11/17 13:04; Start 01/05/17 at 14:00 Sodium Chloride 500 ml @ 500 mls/hr BOLUS ONCE IV Last administered on 14:11; Start 01/06/17 at 12:45; Stop 01/06/17 at 13:44; Status DC Propofol (Diprivan 200 Mg/20 ml Inj) 20 mg STK-MED ONCE IV ; Start 12/27/16 at 11:30; Stop 01/07/17 at 11:30; Status DC Albuterol/ Ipratropium (Duoneb Neb) 1 ampule Q6HR NEB PRN NEB wheezing/sob Last administered on 01/08/17 21:20; Start 01/08/17 at 09:30; Stop 01/09/17 at 08:44; Status DC Nystatin (Mycostatin Powder) 1 applic Q12HR TOPICAL Last administered on 08:58; Start 01/09/17 at 09:00 Albuterol/ Ipratropium (Duoneb Neb) 1 ampule Q6HR NEB NEB Last administered on 01/11/17 08:50; Start 01/09/17 at 10:00; Stop 01/11/17 at 12:30; Status DC Budesonide/ Formoterol Fumarate (Symbicort 160-4.5 Inh) 2 puff Q12HR INH Last administered on 01/11/17 08:57; Start 01/09/17 at 10:00 Bumetanide (Bumex Inj) 1 mg ONCE ONCE IV PUSH Last administered on 01/09/17 14:03; Start 01/09/17 at 09:15; Stop 01/09/17 at 09:31; Status DC Pneumococcal Polyvalent Vaccine (Pneumovax-23 Inj) 25 mcg ONCE ONCE IM ; Start 01/10/17 at 10:00; Stop 01/10/17 at 10:01; Status DC Influenza Virus Vaccine (Flu (Quadrivalent) Vaccine Inj) 0.5 ml ONCE ONCE IM Last administered on 01/11/17 10:40; Start 01/10/17 at 10:00; Stop 01/10/17 at 10:01; Status DC Prednisone (Deltasone) 20 mg BID PO Last administered on 01/11/17 08:48; Start 01/10/17 at 21:00; Status Future Hold Acetylcysteine (Mucomyst 20% Neb) 2 ml Q6HR NEB NEB Last administered on 08:50; Start 01/10/17 at 16:00 Pneumococcal Polyvalent Vaccine (Pneumovax-23 Inj) 25 mcg ONCE ONCE IM ; Start 01/11/17 at 09:00; Stop 01/11/17 at 09:01; Status DC Influenza Virus Vaccine (Flu (Quadrivalent) Vaccine Inj) 0.5 ml ONCE ONCE IM ; Start 01/11/17 at 09:00; Stop 01/11/17 at 09:01; Status DC Methylprednisolone Sodium Succinate (SoluMEDROL INJ) 125 mg ONCE ONCE IV PUSH Last administered on 01/11/17 13:04; Start 01/11/17 at 13:00; Stop 01/11/17 at 13:01; Status DC Methylprednisolone Sodium Succinate (SoluMEDROL INJ) 40 mg Q6HR IV PUSH ; Start 01/11/17 at 18:00 Guaifenesin (Mucinex Er) 1,200 mg BID PO Last administered on 01/11/17t 13:07; Start 01/11/17 at 12:30 Albuterol/ Ipratropium (Duoneb Neb) 1 ampule Q4HR NEB NEB ; Start 01/11/17 at 16:00 A/P Problem List: (1) Acute respiratory failure ICD Code: J96.00 - Acute respiratory failure Status: Acute (2) Hypocalcemia ICD Code: E83.51 - Hypocalcemia (3) COPD with acute exacerbation ICD Code: J44.1 - Acute exacerbation of chronic obstructive airways disease Status: Acute (4) Hyponatremia ICD Code: E87.1 - Hyponatremia Status: Acute (5) Acute kidney injury ICD Code: N17.9 - Acute kidney failure, unspecified Status: Acute (6) DM (diabetes mellitus) ICD Code: E11.9 - Type 2 diabetes mellitus without complications Status: Chronic (7) Urinary retention ICD Code: R33.9 - Retention of urine, unspecified Status: Resolved (8) 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 - Drug or chemical induced diabetes mellitus without complications; T38.0X5A - Adverse effect of glucocorticoids and synthetic analogues, initial encounter Status: Acute (9) Acute renal failure ICD Code: N17.9 - Acute kidney failure, unspecified Status: Acute Assessment and Plan Toxic metabolic Encephalopathy - likely metabolic/CO2 retention, resolved Restless leg syndrome Diabetic neuropathy Awake and alert, avoid sedatives CT brain 12/14 revealed no acute intracranial findings Home gabapentin 300 mg 3 times a day and she was resume gabapentin 01/06 at 100 milligrams 3 times a day Alprazolam 0.5 mg by mouth every 8 hours anxiety Continue tramadol 50 mg as needed for pain management Hypertension History of hypertension History dyslipidemia Pulmonary hypertension likely type III secondary to COPD Continue hydralazine 100 3 times a day, Isordil 10 mg 3 times a day. Nifedipine 40mg every 8 hours, clonidine 0.3 milligram TID. Labetalol 200mg po q8hr. Breakthrough labetalol and hydralazine iv. (Home medications include lisinopril 5 mill grams daily, metoprolol 50 mill grams twice a day, clonidine 0.1 mg 3 times a day, nifedipine 60 mill grams every 12 hours, isosorbide mononitrate 30 mg daily and hydralazine 100 mg 3 times daily.) Echocardiogram 2015 EF 55-60%. No regional wall motion abnormality. LEXIE- 61 mmHg. Mild MR. Echocardiogram 12/14/16 - EF 65-70%. No regional wall motion abnormality. Hyperdynamic state Acute hypoxemic respiratory failure-resolved Severe COPD/O2 dependent, with acute exacerbation HERACLIO/no CPAP at home Probable community-acquired pneumonia s/p Trach 12/26. Tolerating trach collar with 40% FIO2. With #6 Shiley. decannulation per Pulm Albuterol/ipratropium aerosols every 6 hours with albuterol for breakthrough every 2 hours when necessary Prednisone 10mg daily/home dose medication Umeclidinium/Vilanterol 62.5 micrograms/25 micrograms one inhalation daily has been resumed and budesonide/formoterol 160/4.5 2 puffs every [address] Noble Symptoms seems to worsen today on 01/11. Will need to restart Solu-Medrol and scheduled DuoNeb's. Continue to monitor clinically. Elevated transaminases- resolved s/p PEG tube placement 12/27 Currently on oral diet/Nepro 40 cc previous tube feed dosage Docusate sodium 100 mg twice a day for bowel regimen. Avoid hepatotoxic medications. Evaluated by GI 01/08 for possible GI bleed. Negative workup today. He will be stable. No plans for intervention at the present time. Diabetes mellitus with neuropathy Hyperglycemia SSI with accuchecks Novulin R every 6/low regimen Acute kidney injury in the setting of Chronic kidney disease stage 4 - AIN versus medication requiring [employer] Monitor renal function, I/O's, avoid nephrotoxins. Creatinine stabilized around 2 Renal-Dr[address] Hoskote. Lara d/c 01/01 per renal. Renal ultrasound 12/14 indicative of medical renal disease with atrophied right kidney Continue Ca carbonate 500 mg every 12 hours. Calcitrol 0.25 mcg daily continue per nephrology. Normocytic anemia Monitor CBC No indication for transfusion of blood product at this time Probable community-acquired pneumonia UTI Urine cx 12/27 & 01/02: C. Albicans. Tinea cruris Fluconazole 100mg daily discontinue 01/05. s/p full course of abx(piperacillin/tazobactam and levofloxacin). UA negative/, sputum neg to date. Blood cultures 12/14 and 12/15 negative to date. Negative urine pneumococcal and Legionella antigens Monitor for signs of infections ( Fever, WBC) Noted last UA with positive Chaya. on nystatin powder twice a day for tinea nazia Prophylaxis - GI -pantoprazole - DVT - SCD/heparin subcutaneous Discharge Planning Recurrence of COPD exacerbation with severe wheezing and respiratory failure patient will require continue hospitalization due to this. Problem Qualifiers (1) Acute respiratory failure: Qualified Codes: J96.01 - Acute respiratory failure with hypoxia; J96.02 - Acute respiratory failure with hypercapnia (2) DM (diabetes mellitus): Qualified Codes: E13.9 - Other specified diabetes mellitus without complications (3) Acute renal failure: Qualified Codes: N17.9 - Acute kidney failure, unspecified Marlee Carcamo MD Jan 11, 2017 12:32
[2017-01-11] MEDS: RESP: ALBUTEROL 2.5 MG/3 ML NEB (PRN) INH (12:33)
[2017-01-11] MEDS ORDERED: methylPREDNISolone SOD SUCC 125 MG/2 ML VIAL IV PUSH ONE (13:00)
[2017-01-11] MEDS: guaiFENesin E.R. 600 MG TAB PO SCH ×2 (13:07→22:08)
--- NOTE | 2017-01-11 14:26 | HHI.NPPN ---
Subjective Renal Failure: Chronic, Acute, Stage III Interval History Moved out of [facility] [place]. She is breathing easier today. Labs from today are not available. (Tootie Grant) Review of Systems General Constitutional: Fatigue General Remarks generalized pain (Tootie Grant) Respiratory Lungs: SOB, Cough, Wheeze (Tootie Grant) Objective Data Data Vital Signs Date Time Temp Pulse Resp B/P (MAP) Pulse Ox O2 Delivery O2 Flow Rate FiO2 01/11/17 10:28 95 Nasal Cannula 3.00 01/11/17 08:00 98.5 86 15 153/83 (106) 93 01/11/17 06:00 98.4 80 23 120/64 (82) 96 01/11/17 05:26 98 Trach Collar 35 01/11/17 02:38 96 Trach Collar 35 01/10/17 22:00 97.9 78 24 117/71 (86) 94 01/10/17 20:00 76 01/10/17 20:00 98.2 76 26 154/75 (101) 96 01/10/17 19:57 96 Trach Collar 35 01/10/17 18:00 74 01/10/17 16:00 60 01/10/17 16:00 98.3 66 22 128/69 (88) 96 (Tootie Grant) -: 01/10/17 1058 01/10/17 1058 Tubes & Lines: Raphael Tubes & Lines Comment PEG (Tootie Grant) Physical Exam General Appearance: Well Developed, No Acute Distress, Comfortable, Obese (Tootie Grant) Eyes Eye Exam: Pupils Equal (Tootie Grant) Throat Throat Exam: Oral Mucosa Hytop & Moist Throat Remarks trach (Tootie Grant) Neck Neck Exam: Neck Supple (Tootie Grant) Pulmonary Resp Exam: Clear Bilaterally, Breath Sounds Equal, No Distress, Diminished Breath Sounds (Tootie Grant) Cardiology CV Exam: Regular, Normal Sinus Rhythm (Tootie Grant) Gastrointestinal/Abdomen GI Exam: Soft, Non-Tender, Bowel Sounds Present GI Remarks + PEG (Tootie Grant) Musculoskeletal MS Exam: Joints Intact, Normal Tone, Unable to Ambulate (Tootie Grant) Integumentary Skin Exam: Clear, Warm, Dry (Tootie Grant) Extremeties Extremities Exam: No Edema, Pedal Pulses Palpable (Tootie Grant) Neurologic Neuro Exam: Alert, Awake, Oriented, Speech Clear, Moving All Extremities (Tootie Grant) Psychiatric Psych Exam: Appropriate Responses (Tootie Grant) VTE Prophylaxis Device: SCDs (Tootie Grant) Assessment/Plan Discussed Condition With: Patient Assessment Summary: KAILEE/Acute Renal Failure, Acute Tubular Necrosis, Anemia of CKD, Fluid/Volume Overload, Hypertension, Diabetes Mellitus Problem List: (1) Acute renal failure ICD Codes: N17.9 - Acute kidney failure, unspecified Status: Acute Plan: 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 Renal function had returned to baseline, has varied, today's labs results are not available. s/p raphael removal, no retention she is non oliguric Avoid nephrotoxic agents. Minimize non essential medications. Repeat labs in AM . (2) HCAP (healthcare-associated pneumonia) ICD Codes: J18.9 - Healthcare-associated pneumonia Status: Acute Plan: Off solumedrol, on oral prednisone. She is also off antibiotics. Monitor clinically (3) Acute respiratory failure ICD Codes: J96.00 - Acute respiratory failure Status: Acute Plan: . S/p tracheostomy 12/26 she is off the vent; has P Valve in place improving, monitor will need rehab after discharge (4) DM (diabetes mellitus) ICD Codes: E11.9 - Type 2 diabetes mellitus without complications Status: Chronic Plan: continue insulin therapy goal 140-180 mg/dL (5) Hypocalcemia ICD Codes: E83.51 - Hypocalcemia Plan: PTH is high due to secondary hyperparathyroidism On Calcitriol and Vitamin D3. 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 Renal function had returned to baseline, has varied, today's labs results are not available. s/p raphael removal, no retention she is non oliguric Avoid nephrotoxic agents. Minimize non essential medications. Repeat labs in AM . (2) HCAP (healthcare-associated pneumonia) ICD Codes: J18.9 - Healthcare-associated pneumonia Status: Acute Plan: Off solumedrol, on oral prednisone. She is also off antibiotics. Monitor clinically (3) Acute respiratory failure ICD Codes: J96.00 - Acute respiratory failure Status: Acute Plan: . S/p tracheostomy 12/26 she is off the vent; has P Valve in place improving, monitor will need rehab after discharge (4) DM (diabetes mellitus) ICD Codes: E11.9 - Type 2 diabetes mellitus without complications Status: Chronic Plan: continue insulin therapy goal 140-180 mg/dL (5) Hypocalcemia ICD Codes: E83.51 - Hypocalcemia Plan: PTH is high due to secondary hyperparathyroidism On Calcitriol and Vitamin D3. Hypocalcemia has corrected (6) Anemia ICD Codes: D64.9 - Anemia, unspecified Status: Chronic Plan: GI still following; no further dark stools Hb stable monitor Plan patient was seen and examined. Agree with above assessment and plan. (Thomas Blackmon MD) Problem Qualifiers (1) Acute renal failure: Qualified Codes: N17.9 - Acute kidney failure, unspecified (2) Acute respiratory failure: Qualified Codes: J96.01 - Acute respiratory failure with hypoxia; J96.02 - Acute respiratory failure with hypercapnia (3) DM (diabetes mellitus): Qualified Codes: E13.9 - Other specified diabetes mellitus without complications Tootie Grant Jan 11, 2017 14:26 Thomas Blackmon MD Jan 12, 2017 06:57
[2017-01-11 15:22] LABS: BICARBONATE 25.9 MEQ/L (21.0-32.0); POTASSIUM 5.1 MEQ/L (3.5-5.1)
[2017-01-11] MEDS ORDERED: methylPREDNISolone SOD SUCC 40 MG/1 ML VIAL IV PUSH SCH (18:00)
[2017-01-11] MEDS: methylPREDNISolone SOD SUCC 40 MG/1 ML VIAL IV PUSH SCH (22:12)
[2017-01-12] VITALS (7 sets, daily range): BP systolic 127–167; BP diastolic 60–91; PULSE 76–90; RESP 18–20; TEMP 97.2–98.5; O2SAT 93–100
[2017-01-12] MEDS: RESP: ALBUTEROL 2.5 MG/IPRATROPIUM 0.5 MG NEB (SCH) NEB ×6 (00:21→19:39)
[2017-01-12] MEDS: INSULIN NovoLIN REGULAR SUPPLEMENTAL SCALE SQ SCH ×4 (03:00→22:19)
[2017-01-12] MEDS: CHLORHEXIDINE GLUCONATE 2 % 1 PACK (2 CLOTHS) TOP SCH (04:00)
[2017-01-12] MEDS: RESP: ACETYLCYSTEINE 20% 30 ML NEB NEB SCH ×4 (04:35→19:39)
[2017-01-12] MEDS: HEPARIN SODIUM - SQ 10,000 UNITS/ML VIAL SQ SCH ×2 (04:36→14:00)
[2017-01-12] MEDS: LABETALOL HCL 200 MG TAB PO SCH ×3 (04:36→22:17)
[2017-01-12] MEDS: cloNIDine HCL 0.3 MG TAB PO SCH ×3 (07:44→22:17)
[2017-01-12] MEDS: NIFEdipine 20 MG CAP PO SCH ×3 (07:44→22:17)
[2017-01-12] MEDS: hydrALAZINE HCL 100 MG TAB PO SCH ×3 (07:44→22:16)
[2017-01-12] MEDS: ISOSORBIDE DINITRATE 10 MG TAB PO SCH ×3 (07:44→22:17)
[2017-01-12] MEDS: CHLORHEXIDINE 0.12% (ORAL KIT) 15 ML CUP MT SCH ×2 (08:00→20:00)
[2017-01-12] MEDS: CHOLECALCIFEROL (VIT D3) 1000 UNIT TAB NG SCH (08:10)
[2017-01-12] MEDS: CALCITRIOL 0.25 MCG CAP NG SCH (08:10)
[2017-01-12] MEDS: CALCIUM CARBONATE 1.25 GM (CA 500 MG) TAB PO SCH ×2 (08:10→22:17)
[2017-01-12] MEDS: guaiFENesin E.R. 600 MG TAB PO SCH ×2 (08:10→22:16)
[2017-01-12] MEDS: GABAPENTIN 100 MG CAP PO SCH ×3 (08:11→18:00)
[2017-01-12] MEDS: PANTOPRAZOLE SOD 20 MG DELAYED RELEASE TAB PO SCH (08:11)
[2017-01-12] MEDS: SODIUM CHLORIDE 0.9% FLUSH 10 ML FLUSH IV FLUSH SCH ×2 (08:12→22:18)
[2017-01-12] MEDS: methylPREDNISolone SOD SUCC 40 MG/1 ML VIAL IV PUSH SCH ×2 (08:12→22:18)
[2017-01-12] MEDS: UMECLIDINIUM 62.5 MCG/VILANTEROL 25 MCG INHALER INH SCH (08:13)
[2017-01-12] MEDS: BUDESONIDE-FORMOTEROL 160/4.5 MCG INHALER INH SCH ×2 (08:13→22:18)
[2017-01-12] MEDS: NYSTATIN 100,000 U/GM PWD 15 GM BTL TOPICAL SCH ×2 (08:14→22:19)
[2017-01-12] MEDS: DOCUSATE SODIUM 100 MG/10 ML UDC PO SCH ×2 (08:14→22:16)
[2017-01-12] MEDS: SODIUM CHLORIDE 0.9% FLUSH 10 ML FLUSH IVF SCH (08:14)
--- NOTE | 2017-01-12 12:54 | HHI.PR ---
Subjective Remarks Follow-up for COPD exacerbation and infection Patient stated her SOB has improved drastically. She stated that when she gets anxiety it exacerbates her COPD. Patient also feels that the Mucinex is helping. Otherwise no other complaints. Objective Vitals Vital Signs Date Time Temp Pulse Resp B/P (MAP) Pulse Ox O2 Delivery O2 Flow Rate FiO2 01/12/17 12:05 98.5 80 18 140/73 (95) 96 01/12/17 08:10 98.5 84 18 167/91 (116) 95 01/12/17 04:00 97.2 83 18 149/81 (103) 93 01/11/17 20:28 100 Trach Collar 10.00 35 01/11/17 16:00 98.5 80 16 129/70 (89) 96 I/O 01/11/17 01/11/17 01/11/17 01/12/17 01/12/17 01/12/17 07:00 15:00 23:00 07:00 15:00 23:00 Intake Total 0 ml Balance 0 ml Intake Oral 0 ml # Voids 1 # Bowel Movements 0 Result Diagram: 01/10/17 1058 01/11/17 1431 Objective Remarks GENERAL: in NAD NECK: Supple, trachea midline. No JVD or lymphadenopathy. trach in place. CARDIOVASCULAR: Regular rate and rhythm without murmurs, gallops, or rubs. RESPIRATORY: Patient seems to have more of a transmitted upper wheezing otherwise lungs are clear to auscultation. Patient is not using any accessory muscle. GASTROINTESTINAL: Abdomen soft, non-tender, nondistended. Medications and IVs Current Medications Sodium Chloride (NS Flush) 2 ml UNSCH PRN IVF FLUSH AFTER USING IV ACCESS; Start 12/14/16 at 14:15; Stop 12/16/16 at 08:01; Status DC Methylprednisolone Sodium Succinate (SoluMEDROL INJ) 125 mg ONCE ONCE IVP Last administered on 12/14/16 14:41; Start 12/14/16 at 14:15; Stop 12/14/16 at 14: 16; Status DC Albuterol Sulfate (Albuterol Neb) 2.5 mg Q15M INH Last administered on 14:19; Start 12/14/16 at 14:15; Stop 12/14/16 at 14:46; Status DC Magnesium Sulfate/ Dextrose 100 ml @ 100 mls/hr ONCE ONCE IV Last administered on 12/14/16 14:40; Start 12/14/16 at 14:15; Stop 12/14/16 at 15:14; Status DC Etomidate (Amidate Inj) 20 mg STK-MED ONCE .ROUTE ; Start 12/14/16 at 15:09; Stop 12/14/16 at 15:10; Status DC Succinylcholine Chloride (Quelicin Inj) 200 mg STK-MED ONCE .ROUTE ; Start at 15:09; Stop 12/14/16 at 15:10; Status DC Midazolam HCl (Versed Inj) 1 mg ONCE ONCE IV PUSH Last administered on 16:08; Start 12/14/16 at 15:45; Stop 12/14/16 at 15:46; Status DC Midazolam HCl 100 ml @ 2 mls/hr TITRATE PRN IV SEDATION Last administered on 13:50; Start 12/14/16 at 15:45; Stop 12/22/16 at 11:39; Status DC Sodium Chloride 1,000 ml @ 999 mls/hr BOLUS ONCE IV Last administered on 16:07; Start 12/14/16 at 15:45; Stop 12/14/16 at 16:45; Status DC Midazolam HCl 100 ml @ As Directed STK-MED ONCE .ROUTE ; Start 12/14/16 at 15:38 ; Stop 12/14/16 at 15:39; Status DC Furosemide (Lasix Inj) 20 mg ONCE ONCE IV PUSH Last administered on 12/14/16 17:14; Start 12/14/16 at 16:00; Stop 12/14/16 at 16:01; Status DC Calcium Chloride 2 gm/Sodium Chloride 120 ml @ 120 mls/hr ONCE ONCE IV Last administered on 12/14/16 23:10; Start 12/14/16 at 17:00; Stop 12/14/16 at 17:59; Status DC Sodium Chloride 1,000 ml @ 84 mls/hr [id number] IV Last administered on 12/14/16 17:14; Start 12/14/16 at 16:00; Stop 12/14/16 at 17:28; Status DC Sodium Chloride (NS Flush) 2 ml UNSCH PRN IV FLUSH FLUSH AFTER USING IV ACCESS Last administered on 12/26/16 13:54; Start 12/14/16 at 16:00 Sodium Chloride (NS Flush) 2 ml BID IV FLUSH Last administered on 01/12/17 08: 12; Start 12/14/16 at 21:00 Acetaminophen (Tylenol) 650 mg Q6H PRN PO PAIN 1-10 AND/OR FEVER >101F; Start 12/14/16 at 16:00; Stop 12/29/16 at 09:40; Status DC Famotidine (Pepcid Inj) 10 mg Q12HR IV PUSH Last administered on 01/03/17 09: 24; Start 12/14/16 at 21:00; Stop 01/03/17 at 11:50; Status DC Artificial Tears (Tears Naturale Opth Soln) 1 drop TID EACH EYE Last administered on 01/03/17 09:22; Start 12/14/16 at 18:00; Stop 01/05/17 at 10:17 ; Status DC Ondansetron HCl (Zofran Inj) 4 mg Q6H PRN IV NAUSEA OR VOMITING; Start 12/14/16 at 16:00 Albuterol/ Ipratropium (Duoneb Neb) 1 ampule Q4HR NEB INH Last administered on 12/17/16 15:45; Start 12/14/16 at 16:00; Stop 12/17/16 at 17:33; Status DC Albuterol Sulfate (Albuterol Neb) 2.5 mg Q2HR NEB PRN INH SOB/WHEEZING Last administered on 01/11/17 12:33; Start 12/14/16 at 16:00 Heparin Sodium (Porcine) (Heparin Inj) 5,000 units Q12H SQ Last administered on 01/03/17 15:48; Start 12/14/16 at 17:00; Stop 01/03/17 at 17:55; Status DC Miscellaneous Information 1 [id number] ; Start 12/14/16 at 16:00 Chlorhexidine Gluconate (Chlorhexidine 2% Cloth) Taper DAILY@04 TOP Last administered on 01/12/17 04:00; Start 12/15/16 at 04:00; Stop 12/11/17 at 03:59 Chlorhexidine Gluconate (Chlorhexidine 2% Cloth) 3 pack UNSCH PRN TOP HYGIENIC CARE; Start 12/14/16 at 16:00 Senna/Docusate Sodium (Alma-Colace) 1 tab BID PO Last administered on 09:25; Start 12/14/16 at 21:00; Stop 01/03/17 at 11:57; Status DC Magnesium Hydroxide (Milk Of Magnesia Liq) 30 ml Q12H PRN PO MILD - MODERATE CONSTIPATION; Start 12/14/16 at 16:00 Sennosides (Senokot) 17.2 mg Q12H PRN PO MODERATE - SEVERE CONSTIPATION; Start 12/14/16 at 16:00 Bisacodyl (Dulcolax Supp) 10 mg DAILY PRN RECTAL SEVERE CONSITIPATION; Start at 16:00 Lactulose (Lactulose Liq) 30 ml DAILY PRN PO SEVERE CONSITIPATION; Start at 16:00 Chlorhexidine Gluconate (Peridex 0.12% Liq) 15 ml BID@08,20 MT Last administered on 01/11/17 20:00; Start 12/14/16 at 20:00 Propofol 100 ml @ 2.34 mls/hr TITRATE PRN IV SEDATION Last administered on 04:45; Start 12/14/16 at 16:00; Stop 12/30/16 at 08:04; Status DC Fentanyl Citrate 250 ml @ 5 mls/hr TITRATE PRN IV SEDATION Last administered on 12/16/16 02:23; Start 12/14/16 at 16:00; Stop 12/15/16 at 17:18; Status DC Etomidate (Amidate Inj) 20 mg ONCE ONCE IV PUSH ; Start 12/14/16 at 16:45; Stop 12/14/16 at 16:46; Status DC Succinylcholine Chloride (Quelicin Inj) 50 mg ONCE ONCE IV PUSH Last administered on 12/14/16 16:36; Start 12/14/16 at 16:45; Stop 12/14/16 at 16:46; Status DC Phenylephrine HCl 160 mg/Dextrose 500 ml @ 7.5 mls/hr TITRATE PRN IV Blood pressure management; Start 12/14/16 at 16:45; Stop 12/17/16 at 11:05; Status DC Terbutaline Sulfate (Brethine Inj) 1 mg UNSCH PRN SQ For Extravasation; Start 12/14/16 at 16:45; Stop 12/22/16 at 11:39; Status DC Sodium Chloride (NS Flush) DAILY IVF Last administered on 01/10/17 09:43; Start 12/15/16 at 09:00 Sodium Chloride (NS Flush) UNSCH PRN IVF SEE PROTOCOL; Start 12/14/16 at 16:45 Budesonide (Pulmicort Respule Neb) 0.5 mg Q12HR NEB NEB Last administered on 21:20; Start 12/14/16 at 20:00; Stop 01/09/17 at 08:58; Status DC Methylprednisolone Sodium Succinate (SoluMEDROL INJ) 60 mg Q6HR IV PUSH Last administered on 12/18/16 17:00; Start 12/14/16 at 18:00; Stop 12/18/16 at 19:01; Status DC Piperacillin Sod/ Tazobactam Sod 50 ml @ 100 mls/hr Q8H IV Last administered on 12/21/16 23:53; Start 12/14/16 at 18:00; Stop 12/22/16 at 12:01; Status DC Azithromycin 500 mg/Sodium Chloride 250 ml @ 250 mls/hr Q24H IV Last administered on 12/14/16 20:28; Start 12/14/16 at 20:00; Stop 12/14/16 at 20:59; Status DC Pharmacy Profile Note 0 ml @ 0 mls/hr UNSCH OTHER ; Start 12/14/16 at 17:15; Stop 12/22/16 at 11:51; Status DC Vancomycin HCl 1250 mg/Sodium Chloride 262.5 ml @ 250 mls/hr ONCE ONCE IV Last administered on 12/14/16 23:30; Start 12/14/16 at 18:00; Stop 12/14/16 at 19: 02; Status DC Bumetanide (Bumex Inj) 1 mg BID@,18 IV PUSH ; Start 12/14/16 at 18:00; Stop 12/14/16 at 18:00; Status DC Bumetanide (Bumex Inj) 2 mg BID@,18 IV PUSH Last administered on 12/16/16 17: 43; Start 12/14/16 at 18:00; Stop 12/22/16 at 11:55; Status DC Bumetanide (Bumex Inj) 1 mg ONCE ONCE IV PUSH ; Start 12/14/16 at 17:45; Stop at 17:47; Status DC Azithromycin 250 mg/Sodium Chloride 250 ml @ 250 mls/hr Q24H IV ; Start at 20:00; Stop 12/15/16 at 20:00; Status DC Sodium Chloride 1,000 ml @ 999 mls/hr BOLUS ONCE IV ; Start 12/14/16 at 19:30; Stop 12/14/16 at 20:30; Status DC Sodium Bicarbonate (Sodium Bicarbonate 8.4% Inj) 100 meq ONCE ONCE IV PUSH Last administered on 12/14/16 23:09; Start 12/14/16 at 20:00; Stop 12/14/16 at 20: 02; Status DC Sodium Bicarbonate 150 meq/Sterile Water 1,000 ml @ 30 mls/hr Q24H IV Last administered on 12/14/16 23:09; Start 12/14/16 at 20:00; Stop 12/15/16 at 09:22; Status DC Epoprostenol Sodium 62.5 ml/ Sodium Chloride 100 ml @ 8 mls/hr Q8H NEB Last administered on 12/15/16 07:43; Start 12/14/16 at 22:00; Stop 12/15/16 at 15:43; Status DC Sodium Chloride 1,000 ml @ 999 mls/hr BOLUS ONCE IV Last administered on 23:31; Start 12/14/16 at 23:00; Stop 12/15/16 at 00:00; Status DC Sodium Chloride 1,000 ml @ 999 mls/hr BOLUS ONCE IV Last administered on 08:14; Start 12/15/16 at 08:00; Stop 12/15/16 at 09:00; Status DC Calcium Chloride 2 gm/Sodium Chloride 120 ml @ 120 mls/hr ONCE ONCE IV Last administered on 12/15/16 08:31; Start 12/15/16 at 08:00; Stop 12/15/16 at 09:00; Status DC Levofloxacin/ Dextrose 100 ml @ 100 mls/hr Q48H IV Last administered on 08:30; Start 12/15/16 at 09:00; Stop 12/22/16 at 12:01; Status DC Dextrose (D50w (Vial) Inj) 50 ml UNSCH PRN IV HYPOGLYCEMIA-SEE COMMENTS; Start 12/15/16 at 09:00; Stop 12/31/16 at 08:58; Status DC Glucagon (Glucagon Inj) 1 mg UNSCH PRN OTHER HYPOGLYCEMIA-SEE COMMENTS; Start 12/15/16 at 09:00; Stop 12/31/16 at 08:58; Status DC Insulin Aspart (NovoLOG SUPPLEMENTAL SCALE) 1 Q4HR SQ Last administered on 12/30 20:00; Start 12/15/16 at 12:00; Stop 12/31/16 at 08:51; Status DC Arginine HCl (Steve Powder) 1 pack BID G-[id number] Last administered on 12/29/16 21 :00; Start 12/15/16 at 09:00; Stop 12/31/16 at 09:04; Status DC Sodium Chloride 1,000 ml @ 84 mls/hr [id number] IV Last administered on 12/15/16 21:49; Start 12/15/16 at 09:30; Stop 12/16/16 at 07:23; Status DC Epoprostenol Sodium 50 ml/ Sodium Chloride 100 ml @ 8 mls/hr ONCE ONCE NEB Last administered on 12/15/16 15:44; Start 12/15/16 at 16:00; Stop 12/16/16 at 04: 29; Status DC Epoprostenol Sodium 37.5 ml/ Sodium Chloride 100 ml @ 8 mls/hr ONCE ONCE NEB Last administered on 12/16/16 04:48; Start 12/16/16 at 00:00; Stop 12/16/16 at 12: 29; Status DC Epoprostenol Sodium 25 ml/ Sodium Chloride 100 ml @ 8 mls/hr ONCE ONCE NEB Last administered on 12/16/16 08:25; Start 12/16/16 at 08:00; Stop 12/16/16 at 20: 29; Status DC Epoprostenol Sodium 12.5 ml/ Sodium Chloride 100 ml @ 8 mls/hr ONCE ONCE NEB Last administered on 12/16/16 16:01; Start 12/16/16 at 16:00; Stop 12/17/16 at 04: 01; Status DC Hydralazine HCl (Apresoline) 100 mg Q8HR PO Last administered on 01/12/17 07: 44; Start 12/15/16 at 14:00 Clevidipine 50 ml @ 2 mls/hr TITRATE PRN IV Blood Pressure Management; Start at 10:30; Stop 12/17/16 at 17:33; Status DC Isosorbide Dinitrate (Isordil) 10 mg Q8HR PO Last administered on 01/12/17 07: 44; Start 12/15/16 at 14:00 Hydralazine HCl (Apresoline Inj) 10 mg Q1HR PRN IV PUSH SBP>160, DBP>90 Last administered on 12/31/16 11:27; Start 12/15/16 at 10:30; Stop 01/10/17 at 18:52 ; Status DC Nitroglycerin (Nitroglycerin 2% Oint) 2 inch Q6HR PRN TOPICAL SBP>160, DBP>90 Last administered on 12/26/16 13:47; Start 12/15/16 at 10:30 Fentanyl Citrate 250 ml @ 5 mls/hr TITRATE PRN IV SEDATION Last administered on 12/26/16 17:36; Start 12/15/16 at 10:30; Stop 12/30/16 at 08:04; Status DC Calcium Chloride 2 gm/Sodium Chloride 120 ml @ 120 mls/hr ONCE ONCE IV ; Start 12/15/16 at 17:15; Stop 12/15/16 at 17:25; Status DC Calcium Chloride 2 gm/Sodium Chloride 120 ml @ 120 mls/hr ONCE ONCE IV Last administered on 12/15/16 18:04; Start 12/15/16 at 18:00; Stop 12/15/16 at 18:59; Status DC Nifedipine (Procardia) 10 mg Q8HR PO Last administered on 12/16/16 13:27; Start 12/16/16 at 14:00; Stop 12/16/16 at 17:53; Status DC Clonidine (Catapres) 0.1 mg Q12HR PO Last administered on 12/17/16 08:04; Start 12/16/16 at 09:00; Stop 12/17/16 at 11:17; Status DC Polyethylene Glycol (Miralax) 17 gm BID OG-TUBE Last administered on 12/29/16 21:17; Start 12/16/16 at 09:00; Stop 12/31/16 at 09:04; Status DC Lactulose (Lactulose Liq) 30 ml BID OG-TUBE Last administered on 12/29/16 21: 18; Start 12/16/16 at 09:00; Stop 12/31/16 at 09:04; Status DC Mineral Oil (Mineral Oil Liq) 30 ml ONCE ONCE NG Last administered on 08:33; Start 12/16/16 at 08:15; Stop 12/16/16 at 08:16; Status DC Vancomycin HCl 1250 mg/Sodium Chloride 262.5 ml @ 250 mls/hr ONCE ONCE IV Last administered on 12/16/16 11:33; Start 12/16/16 at 11:00; Stop 12/16/16 at 12: 02; Status DC Nifedipine (Procardia) 20 mg Q8HR PO Last administered on 12/18/16 06:00; Start 12/16/16 at 22:00; Stop 12/18/16 at 08:43; Status DC Cisatracurium Besylate (Nimbex Inj) 18 mg ONCE ONCE IV PUSH Last administered on 12/17/16 01:30; Start 12/17/16 at 01:30; Stop 12/17/16 at 01:37; Status DC Cisatracurium Besylate 100 mg/ Sodium Chloride 260 ml @ 14.04 mls/ hr TITRATE PRN IV TOF 1/4 Last administered on 12/17/16 02:10; Start 12/17/16 at 01:30; Stop 12/17/16 at 07:25; Status DC Artificial Tears (Lacrilube Opht Oint) 1 applic Q12HR EACH EYE Last administered on 01/03/17 09:21; Start 12/17/16 at 09:00; Stop 01/03/17 at 11:50 ; Status DC Bumetanide 100 ml @ 4 mls/hr Q24H IV Last administered on 12/19/16 06:00; Start 12/17/16 at 02:34; Stop 12/19/16 at 09:26; Status DC Epoprostenol Sodium 12.5 ml/ Sodium Chloride 100 ml @ 8 mls/hr ONCE ONCE NEB Last administered on 12/17/16 02:00; Start 12/17/16 at 04:15; Stop 12/17/16 at 16: 44; Status DC Calcium Chloride 2 gm/Dextrose 120 ml @ 120 mls/hr ONCE ONCE IV Last administered on 12/17/16 04:30; Start 12/17/16 at 04:30; Stop 12/17/16 at 05:29; Status DC Cisatracurium Besylate 100 mg/ Sodium Chloride 250 ml @ 13.96 mls/ hr TITRATE PRN IV TOF goal 1/4 Last administered on 12/17/16 08:03; Start 12/17/16 at 07:30 ; Stop 12/18/16 at 08:40; Status DC Calcium Acetate (Phoslo) 667 mg TID PO Last administered on 12/28/16 09:14; Start 12/17/16 at 13:00; Stop 12/28/16 at 09:58; Status DC Clonidine (Catapres) 0.3 mg Q8HR PO Last administered on 01/12/17 07:44; Start 12/17/16 at 14:00 Albuterol/ Ipratropium (Duoneb Neb) 1 ampule Q4HR NEB INH Last administered on 12/21/16 12:04; Start 12/17/16 at 20:00; Stop 12/21/16 at 15:36; Status DC Clevidipine 50 ml @ 2 mls/hr TITRATE PRN IV Blood Pressure Management; Start at 17:45; Stop 12/18/16 at 08:40; Status DC Hydromorphone HCl (Dilaudid) 1 mg Q6H PO Last administered on 12/28/16 05:17; Start 12/17/16 at 18:00; Stop 12/28/16 at 07:29; Status DC Nicardipine HCl 25 mg/Sodium Chloride 260 ml @ 52 mls/hr TITRATE PRN IV Blood pressure management Last administered on 12/18/16 00:14; Start 12/17/16 at 23:45 ; Stop 12/22/16 at 11:39; Status DC Sodium Chloride 1,000 ml @ 10 mls/hr Q24H IV Last administered on 12/30/16 03 :00; Start 12/18/16 at 03:00; Stop 12/30/16 at 08:04; Status DC Potassium Chloride 100 ml @ 50 mls/hr Q2H IV Last administered on 12/18/16 11: 28; Start 12/18/16 at 09:00; Stop 12/18/16 at 12:59; Status DC Nifedipine (Procardia) 40 mg Q8HR PO Last administered on 01/12/17 07:44; Start 12/18/16 at 14:00 Calcium Chloride 2 gm/Dextrose 120 ml @ 120 mls/hr ONCE ONCE IV Last administered on 12/18/16 12:08; Start 12/18/16 at 11:30; Stop 12/18/16 at 12:29; Status DC Calcium Gluconate (Calcium Gluconate Inj) 1 gm ONCE ONCE IV PUSH ; Start at 09:30; Stop 12/18/16 at 11:16; Status DC Calcitriol (Rocaltrol) 0.25 mcg DAILY NG Last administered on 01/12/17 08:10; Start 12/18/16 at 10:30 Cholecalciferol (Vitamin D3) 2,000 units DAILY NG Last administered on 08:10; Start 12/18/16 at 10:30 Methylprednisolone Sodium Succinate (SoluMEDROL INJ) 40 mg Q6HR IV PUSH Last administered on 12/21/16 12:49; Start 12/19/16 at 00:00; Stop 12/21/16 at 13:57; Status DC Insulin Detemir (Levemir Inj) 10 units Q12HR SQ Last administered on 12/30/16 23:34; Start 12/18/16 at 21:00; Stop 12/31/16 at 08:49; Status DC Bumetanide (Bumex Inj) 1 mg TID IV PUSH Last administered on 12/22/16 08:26; Start 12/19/16 at 13:00; Stop 12/22/16 at 11:55; Status DC Sodium Chloride 1,000 ml @ 0 mls/hr Q0M PRN OTHER For Prime & Rinse Back Last administered on 12/25/16 14:01; Start 12/20/16 at 08:05 Heparin Sodium (Porcine) (Heparin Inj) 8,000 units UNSCH PRN IVF WITH DIALYSIS ; Start 12/20/16 at 08:15 Sodium Chloride 1,000 ml @ 200 mls/hr Q5H PRN IV WITH DIALYSIS; Start 12/20/16 at 08:05 Sodium Chloride 1,000 ml @ 0 mls/hr Q0M PRN OTHER WITH DIALYSIS; Start 12/20/16 at 08:05 Mannitol (Mannitol Inj) 12.5 gm UNSCH PRN IV WITH DIALYSIS; Start 12/20/16 at 08 :15 Albumin Human (Albumin 25% Inj) 25 gm UNSCH PRN IV WITH DIALYSIS Last administered on 12/27/16 16:51; Start 12/20/16 at 08:15 Sodium Chloride (NS Flush) 5 ml UNSCH PRN IV FLUSH WITH DIALYSIS Last administered on 12/25/16 14:01; Start 12/20/16 at 08:15 Heparin Sodium (Porcine) (Heparin Inj) UNSCH PRN .XX WITH DIALYSIS Last administered on 12/27/16 16:51; Start 12/20/16 at 08:15 Gentamicin Sulfate (Gentamicin (Dialysis) Inj) 20 mg UNSCH PRN IV WITH DIALYSIS Last administered on 12/27/16 16:51; Start 12/20/16 at 08:15 Ondansetron HCl (Zofran Inj) 4 mg UNSCH PRN IV WITH DIALYSIS; Start 12/20/16 at 08:15 Acetaminophen (Tylenol) 650 mg UNSCH PRN PO for headach, pain, temp > 101F Last administered on 01/05/17 14:19; Start 12/20/16 at 08:15 Diphenhydramine HCl (Benadryl) 25 mg UNSCH PRN PO for hives/itching/anaphylaxis ; Start 12/20/16 at 08:15 Nitroglycerin (Nitrostat Sl) 0.4 mg UNSCH PRN SL CHEST PAIN; Start 12/20/16 at 08:15 Clonidine (Catapres) 0.1 mg UNSCH PRN PO for BP > 180/100 X 2 readings Last administered on 12/22/16 10:37; Start 12/20/16 at 08:15; Stop 12/22/16 at 11:39; Status DC Gelatin (Gelfoam 12 Mm/7 Mm Top) 1 foam UNSCH PRN TOP SEE LABEL COMMENTS; Start 12/20/16 at 08:15 Calcium Gluconate 2 gm/Dextrose 120 ml @ 120 mls/hr ONCE ONCE IV Last administered on 12/20/16 10:41; Start 12/20/16 at 10:00; Stop 12/20/16 at 10:59; Status DC Calcium Gluconate (Calcium Gluconate) 1,000 mg DAILY PO ; Start 12/20/16 at 09:00 ; Stop 12/20/16 at 11:29; Status DC Rocuronium Fred (Zemuron Inj) 50 mg BOLUS ONCE IV Last administered on 12:00; Start 12/20/16 at 08:45; Stop 12/20/16 at 08:46; Status DC Vancomycin HCl 1250 mg/Sodium Chloride 262.5 ml @ 250 mls/hr ONCE ONCE IV Last administered on 12/20/16 10:41; Start 12/20/16 at 11:00; Stop 12/20/16 at 12: 02; Status DC Calcium Carbonate (Oscal) 250 mg DAILY PO ; Start 12/21/16 at 09:00; Stop at 09:00; Status DC Calcium Carbonate (Oscal) 500 mg DAILY PO Last administered on 12/21/16 08:31; Start 12/20/16 at 12:00; Stop 12/21/16 at 16:31; Status DC Methylprednisolone Sodium Succinate (SoluMEDROL INJ) 40 mg Q8HR IV PUSH Last administered on 12/27/16 04:46; Start 12/21/16 at 22:00; Stop 12/27/16 at 09:46 ; Status DC Calcium Chloride 2 gm/Dextrose 120 ml @ 120 mls/hr ONCE ONCE IV Last administered on 12/21/16 16:42; Start 12/21/16 at 15:30; Stop 12/21/16 at 16:29; Status DC Albuterol/ Ipratropium (Duoneb Neb) 1 ampule Q4HR NEB INH Last administered on 12/25/16 11:19; Start 12/21/16 at 16:00; Stop 12/25/16 at 11:32; Status DC Albuterol/ Ipratropium (Duoneb Neb) 1 ampule Q4HR NEB INH ; Start 12/21/16 at 16 :00; Status UNV Calcium Carbonate (Oscal) 500 mg Q12H PO Last administered on 01/12/17 08:10; Start 12/21/16 at 21:00 Calcium Gluconate 2 gm/Sodium Chloride 120 ml @ 60 mls/hr ONCE ONCE IV Last administered on 12/22/16 10:09; Start 12/22/16 at 10:00; Stop 12/22/16 at 11:59; Status DC Labetalol HCl (Trandate Inj) 20 mg Q15M PRN IV PUSH sbp > 160 Last administered on 12/23/16 01:55; Start 12/22/16 at 13:00 Hydralazine HCl (Apresoline Inj) 10 mg Q30M PRN IV PUSH sbp > 160; Start at 13:00; Stop 12/22/16 at 13:00; Status DC Hydralazine HCl (Apresoline) 50 mg Q8HR PO ; Start 12/22/16 at 11:45; Stop at 12:14; Status DC Labetalol HCl (Trandate) 200 mg Q8H PO Last administered on 01/12/17 04:36; Start 12/22/16 at 12:00 Albuterol/ Ipratropium (Duoneb Neb) 1 ampule Q4HR NEB INH Last administered on 12/29/16 08:18; Start 12/25/16 at 12:00; Stop 12/29/16 at 11:15; Status DC Midazolam HCl (Versed Inj) 5 mg ONCE ONCE IV PUSH Last administered on 11:00; Start 12/26/16 at 09:00; Stop 12/26/16 at 09:11; Status DC Fentanyl Citrate (fentaNYL INJ) 250 mcg ONCE ONCE IV PUSH ; Start 12/26/16 at 09:00; Stop 12/26/16 at 09:10; Status DC Rocuronium Fred (Zemuron Inj) 100 mg BOLUS ONCE IV Last administered on 11:00; Start 12/26/16 at 09:00; Stop 12/26/16 at 09:11; Status DC Fentanyl Citrate (fentaNYL INJ) 250 mcg ONCE ONCE IV PUSH Last administered on 12/26/16 12:05; Start 12/26/16 at 11:00; Stop 12/26/16 at 11:01; Status DC Lidocaine/ Epinephrine (Xylocaine-Epi 1%-1:100,000 Inj) 30 ml STK-MED ONCE .ROUTE ; Start 12/26/16 at 11:23; Stop 12/26/16 at 11:24; Status DC Methylprednisolone Sodium Succinate (SoluMEDROL INJ) 40 mg Q12HR IV PUSH Last administered on 12/29/16 09:22; Start 12/27/16 at 21:00; Stop 12/29/16 at 11:15 ; Status DC Cefazolin Sodium (Ancef Inj) 500 mg ONCE ONCE IM ; Start 12/27/16 at 10:00; Stop 12/27/16 at 10:01; Status Cancel Cefazolin Sodium 500 mg/Sodium Chloride 100 ml @ 200 mls/hr Q8H IV ; Start at 14:00; Status Cancel Cefazolin Sodium 500 mg/Sodium Chloride 100 ml @ 200 mls/hr ONCE ONCE IV Last administered on 12/27/16 14:26; Start 12/27/16 at 14:15; Stop 12/27/16 at 14:44; Status DC Propofol (Diprivan 200 Mg/20 ml Inj) 200 mg STK-MED ONCE IV ; Start 12/27/16 at 15:09; Stop 12/27/16 at 17:13; Status DC Fluconazole (Diflucan) 100 mg DAILY PO Last administered on 01/05/17 09:10; Start 12/29/16 at 10:00; Stop 01/05/17 at 09:59; Status DC Albuterol/ Ipratropium (Duoneb Neb) 1 ampule Q4HR NEB INH Last administered on 12/30/16 12:08; Start 12/29/16 at 12:00; Stop 12/30/16 at 13:44; Status DC Methylprednisolone Sodium Succinate (SoluMEDROL INJ) 40 mg DAILY IV PUSH Last administered on 01/03/17 09:24; Start 12/30/16 at 09:00; Stop 01/03/17 at 11:57 ; Status DC Potassium Phosphate 15 mmol/ Sodium Chloride 155 ml @ 38.75 mls/ hr ONCE ONCE IV Last administered on 12/29/16 12:57; Start 12/29/16 at 11:45; Stop at 15:44; Status DC Potassium Chloride (KCl Powder) 40 meq NOW PO Last administered on 12/30/16 00 :48; Start 12/30/16 at 00:15; Stop 12/30/16 at 02:00; Status DC Albuterol/ Ipratropium (Duoneb Neb) 1 ampule QID NEB INH Last administered on 01/03/17 11:05; Start 12/30/16 at 16:00; Stop 01/03/17 at 11:28; Status DC Dextrose (D50w (Vial) Inj) 50 ml UNSCH PRN IV HYPOGLYCEMIA-SEE COMMENTS; Start 12/31/16 at 09:00 Glucagon (Glucagon Inj) 1 mg UNSCH PRN OTHER HYPOGLYCEMIA-SEE COMMENTS; Start 12/31/16 at 09:00 Insulin Human Regular (NovoLIN R SUPPLEMENTAL SCALE) 1 Q6H SQ Last administered on 01/12/17 08:43; Start 12/31/16 at 09:00 Alprazolam (Xanax) 0.5 mg Q8H PRN PO anxiety Last administered on 01/11/17 22: 09; Start 01/01/17 at 14:45 Albuterol Sulfate (Albuterol Neb) 2.5 mg STK-MED ONCE .ROUTE ; Start 01/01/17 at 19:46; Stop 01/01/17 at 19:47; Status DC Epoetin Amauri (Epogen Inj) 20,000 units ONCE ONCE SQ Last administered on 11:02; Start 01/03/17 at 08:45; Stop 01/03/17 at 08:49; Status DC Albuterol/ Ipratropium (Duoneb Neb) 1 ampule QID NEB INH Last administered on 01/07/17 15:15; Start 01/03/17 at 16:00; Stop 01/07/17 at 15:59; Status DC Docusate Sodium (Colace) 100 mg BID PO ; Start 01/03/17 at 21:00; Status UNV Pantoprazole Sodium (Protonix) 20 mg DAILY PO Last administered on 01/12/17 08 :11; Start 01/04/17 at 09:00 Methylprednisolone Sodium Succinate (SoluMEDROL INJ) 20 mg DAILY IV PUSH ; Start 01/04/17 at 09:00; Stop 01/04/17 at 09:00; Status DC Docusate Sodium (Colace Liq) 100 mg Q12HR PO Last administered on 01/11/17 22: 13; Start 01/03/17 at 21:00 Prednisone (Deltasone) 10 mg DAILY PO Last administered on 01/10/17 09:33; Start 01/04/17 at 09:00; Stop 01/10/17 at 13:01; Status DC Tramadol HCl (Ultram) 50 mg Q6H PRN PO breakthrough pain Last administered on 04:10; Start 01/03/17 at 15:30 Gabapentin (Neurontin) 100 mg TID PO Last administered on 01/12/17 08:11; Start 01/06/17 at 13:00 Heparin Sodium (Porcine) (Heparin Inj) 5,000 units Q12H SQ Last administered on 01/12/17 04:36; Start 01/05/17 at 14:00 Sodium Chloride 500 ml @ 500 mls/hr BOLUS ONCE IV Last administered on 14:11; Start 01/06/17 at 12:45; Stop 01/06/17 at 13:44; Status DC Propofol (Diprivan 200 Mg/20 ml Inj) 20 mg STK-MED ONCE IV ; Start 12/27/16 at 11:30; Stop 01/07/17 at 11:30; Status DC Albuterol/ Ipratropium (Duoneb Neb) 1 ampule Q6HR NEB PRN NEB wheezing/sob Last administered on 01/08/17 21:20; Start 01/08/17 at 09:30; Stop 01/09/17 at 08:44; Status DC Nystatin (Mycostatin Powder) 1 applic Q12HR TOPICAL Last administered on 08:14; Start 01/09/17 at 09:00 Albuterol/ Ipratropium (Duoneb Neb) 1 ampule Q6HR NEB NEB Last administered on 01/11/17 08:50; Start 01/09/17 at 10:00; Stop 01/11/17 at 12:30; Status DC Budesonide/ Formoterol Fumarate (Symbicort 160-4.5 Inh) 2 puff Q12HR INH Last administered on 01/12/17 08:13; Start 01/09/17 at 10:00 Bumetanide (Bumex Inj) 1 mg ONCE ONCE IV PUSH Last administered on 01/09/17 14:03; Start 01/09/17 at 09:15; Stop 01/09/17 at 09:31; Status DC Pneumococcal Polyvalent Vaccine (Pneumovax-23 Inj) 25 mcg ONCE ONCE IM ; Start 01/10/17 at 10:00; Stop 01/10/17 at 10:01; Status DC Influenza Virus Vaccine (Flu (Quadrivalent) Vaccine Inj) 0.5 ml ONCE ONCE IM Last administered on 01/11/17 10:40; Start 01/10/17 at 10:00; Stop 01/10/17 at 10:01; Status DC Prednisone (Deltasone) 20 mg BID PO Last administered on 01/11/17 08:48; Start 01/10/17 at 21:00; Status Future Hold Acetylcysteine (Mucomyst 20% Neb) 2 ml Q6HR NEB NEB Last administered on 09:03; Start 01/10/17 at 16:00 Pneumococcal Polyvalent Vaccine (Pneumovax-23 Inj) 25 mcg ONCE ONCE IM ; Start 01/11/17 at 09:00; Stop 01/11/17 at 09:01; Status DC Influenza Virus Vaccine (Flu (Quadrivalent) Vaccine Inj) 0.5 ml ONCE ONCE IM ; Start 01/11/17 at 09:00; Stop 01/11/17 at 09:01; Status DC Methylprednisolone Sodium Succinate (SoluMEDROL INJ) 125 mg ONCE ONCE IV PUSH Last administered on 01/11/17 13:04; Start 01/11/17 at 13:00; Stop 01/11/17 at 13:01; Status DC Methylprednisolone Sodium Succinate (SoluMEDROL INJ) 40 mg Q6HR IV PUSH ; Start 01/11/17 at 18:00; Stop 01/11/17 at 18:00; Status DC Guaifenesin (Mucinex Er) 1,200 mg BID PO Last administered on 01/12/17 08:10; Start 01/11/17 at 12:30 Albuterol/ Ipratropium (Duoneb Neb) 1 ampule Q4HR NEB NEB Last administered on 01/12/17 11:41; Start 01/11/17 at 16:00 Methylprednisolone Sodium Succinate (SoluMEDROL INJ) 40 mg BID IV PUSH Last administered on 01/12/17t 08:12; Start 01/11/17 at 21:00 A/P Problem List: (1) Acute respiratory failure ICD Code: J96.00 - Acute respiratory failure Status: Acute (2) Hypocalcemia ICD Code: E83.51 - Hypocalcemia (3) COPD with acute exacerbation ICD Code: J44.1 - Acute exacerbation of chronic obstructive airways disease Status: Acute (4) Hyponatremia ICD Code: E87.1 - Hyponatremia Status: Acute (5) Acute kidney injury ICD Code: N17.9 - Acute kidney failure, unspecified Status: Acute (6) DM (diabetes mellitus) ICD Code: E11.9 - Type 2 diabetes mellitus without complications Status: Chronic (7) Urinary retention ICD Code: R33.9 - Retention of urine, unspecified Status: Resolved (8) 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 - Drug or chemical induced diabetes mellitus without complications; T38.0X5A - Adverse effect of glucocorticoids and synthetic analogues, initial encounter Status: Acute (9) Acute renal failure ICD Code: N17.9 - Acute kidney failure, unspecified Status: Acute Assessment and Plan Toxic metabolic Encephalopathy - likely metabolic/CO2 retention, resolved Restless leg syndrome Diabetic neuropathy Awake and alert, avoid sedatives CT brain 12/14 revealed no acute intracranial findings Home gabapentin 300 mg 3 times a day and she was resume gabapentin 01/06 at 100 milligrams 3 times a day Alprazolam 0.5 mg by mouth every 8 hours anxiety Continue tramadol 50 mg as needed for pain management Hypertension History of hypertension History dyslipidemia Pulmonary hypertension likely type III secondary to COPD Continue hydralazine 100 3 times a day, Isordil 10 mg 3 times a day. Nifedipine 40mg every 8 hours, clonidine 0.3 milligram TID. Labetalol 200mg po q8hr. Breakthrough labetalol and hydralazine iv. (Home medications include lisinopril 5 mill grams daily, metoprolol 50 mill grams twice a day, clonidine 0.1 mg 3 times a day, nifedipine 60 mill grams every 12 hours, isosorbide mononitrate 30 mg daily and hydralazine 100 mg 3 times daily.) Echocardiogram 2015 EF 55-60%. No regional wall motion abnormality. LEXIE- 61 mmHg. Mild MR. Echocardiogram 12/14/16 - EF 65-70%. No regional wall motion abnormality. Hyperdynamic state Acute hypoxemic respiratory failure-resolved Severe COPD/O2 dependent, with acute exacerbation HERACLIO/no CPAP at home Probable community-acquired pneumonia s/p Trach 12/26. Tolerating trach collar with 40% FIO2. With #6 Shiley. decannulation per Pulm Albuterol/ipratropium aerosols every 6 hours with albuterol for breakthrough every 2 hours when necessary Prednisone 10mg daily/home dose medication Umeclidinium/Vilanterol 62.5 micrograms/25 micrograms one inhalation daily has been resumed and budesonide/formoterol 160/4.5 2 puffs every [address] Noble Clinically she has been improving. Will wean off with Solu-Medrol and continue with DuoNeb's. Elevated transaminases- resolved s/p PEG tube placement 12/27 Currently on oral diet/Nepro 40 cc previous tube feed dosage Docusate sodium 100 mg twice a day for bowel regimen. Avoid hepatotoxic medications. Evaluated by GI 01/08 for possible GI bleed. Negative workup today. He will be stable. No plans for intervention at the present time. 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 Creatinine stabilized around 2 Renal-Dr. Blackmon. Mraco d/c 01/01 per renal. Renal ultrasound 12/14 indicative of medical renal disease with atrophied right kidney Continue Ca carbonate 500 mg every 12 hours. Calcitrol 0.25 mcg daily continue per nephrology. Normocytic anemia Monitor CBC No indication for transfusion of blood product at this time Probable community-acquired pneumonia UTI Urine cx 12/27 & 01/02: C. Albicans. Tinea cruris Fluconazole 100mg daily discontinue 01/05. s/p full course of abx(piperacillin/tazobactam and levofloxacin). UA negative/, sputum neg to date. Blood cultures 12/14 and 12/15 negative to date. Negative urine pneumococcal and Legionella antigens Monitor for signs of infections ( Fever, WBC) Noted last UA with positive Chaya. on nystatin powder twice a day for tinea nazia Prophylaxis - GI -pantoprazole - DVT - SCD/heparin subcutaneous Discharge Planning Once patient is medically stable she can be discharged to SNF. Problem Qualifiers (1) Acute respiratory failure: Qualified Codes: J96.01 - Acute respiratory failure with hypoxia; J96.02 - Acute respiratory failure with hypercapnia (2) DM (diabetes mellitus): Qualified Codes: E13.9 - Other specified diabetes mellitus without complications (3) Acute renal failure: Qualified Codes: N17.9 - Acute kidney failure, unspecified Marlee Carcamo MD Jan 12, 2017 12:54
--- NOTE | 2017-01-12 17:30 | HHI.NPPN ---
Subjective Renal Failure: Chronic, Acute, Stage III Additional Remarks No acute complaints Review of Systems General Constitutional: Fatigue General Remarks generalized pain Respiratory Lungs: SOB, Cough, Wheeze Objective Data Data 01/12/17 01/13/17 19:00 07:00 Intake Total 1440 ml Balance 1440 ml Intake Oral 1440 ml Vital Signs Date Time Temp Pulse Resp B/P (MAP) Pulse Ox O2 Delivery O2 Flow Rate FiO2 01/12/17 17:20 98.4 90 20 127/60 (82) 100 01/12/17 12:05 98.5 80 18 140/73 (95) 96 01/12/17 09:03 93 Trach Collar 6.00 35 01/12/17 08:10 98.5 84 18 167/91 (116) 95 01/12/17 04:00 97.2 83 18 149/81 (103) 93 01/11/17 20:28 100 Trach Collar 10.00 35 -: 01/10/17 1058 01/11/17 1431 Tubes & Lines: Raphael Tubes & Lines Comment PEG Physical Exam General Appearance: Well Developed, No Acute Distress, Comfortable, Obese Eyes Eye Exam: Pupils Equal Throat Throat Exam: Oral Mucosa [place] & Moist Neck Neck Exam: Neck Supple Pulmonary Resp Exam: Clear Bilaterally, Breath Sounds Equal, No Distress, Diminished Breath Sounds Cardiology CV Exam: Regular, Normal Sinus Rhythm Gastrointestinal/Abdomen GI Exam: Soft, Non-Tender, Bowel Sounds Present Musculoskeletal MS Exam: Joints Intact, Normal Tone, Unable to Ambulate Integumentary Skin Exam: Clear, Warm, Dry Extremeties Extremities Exam: No Edema, Pedal Pulses Palpable Neurologic Neuro Exam: Alert, Awake, Oriented, Speech Clear, Moving All Extremities Psychiatric Psych Exam: Appropriate Responses VTE Prophylaxis Device: SCDs Assessment/Plan Discussed Condition With: Patient Assessment Summary: KAILEE/Acute Renal Failure, Acute Tubular Necrosis, Anemia of CKD, Fluid/Volume Overload, Hypertension, Diabetes Mellitus Problem List: (1) Acute renal failure ICD Codes: N17.9 - Acute kidney failure, unspecified Status: Acute Plan: 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 Renal function had returned to baseline, has varied. s/p raphael removal, no retention she is non oliguric Avoid nephrotoxic agents. Minimize non essential medications. No new labs today - repeat labs in AM . (2) HCAP (healthcare-associated pneumonia) ICD Codes: J18.9 - Healthcare-associated pneumonia Status: Acute Plan: Off solumedrol, on oral prednisone. She is also off antibiotics. Monitor clinically (3) Acute respiratory failure ICD Codes: J96.00 - Acute respiratory failure Status: Acute Plan: . S/p tracheostomy 12/26 she is off the vent; has P Valve in place improving, monitor will need rehab after discharge (4) DM (diabetes mellitus) ICD Codes: E11.9 - Type 2 diabetes mellitus without complications Status: Chronic Plan: continue insulin therapy goal 140-180 mg/dL (5) Hypocalcemia ICD Codes: E83.51 - Hypocalcemia Plan: PTH is high due to secondary hyperparathyroidism On Calcitriol and Vitamin D3. Hypocalcemia has corrected Calcium slightly higher yesterday, check AM labs. On calcium carbonate, calcitriol, cholecalciferol. (6) Anemia ICD Codes: D64.9 - Anemia, unspecified Status: Chronic Plan: GI still following; no further dark stools Hb stable monitor Problem Qualifiers (1) Acute renal failure: Qualified Codes: N17.9 - Acute kidney failure, unspecified (2) Acute respiratory failure: Qualified Codes: J96.01 - Acute respiratory failure with hypoxia; J96.02 - Acute respiratory failure with hypercapnia (3) DM (diabetes mellitus): Qualified Codes: E13.9 - Other specified diabetes mellitus without complications Alber Castaneda MD Jan 12, 2017 17:30
[2017-01-12] MEDS: ALPRAZolam 0.5 MG TAB PO PRN (18:00)
--- NOTE | 2017-01-12 20:24 | HHI.PR ---
Subjective Remarks Awake and on a trach collar at 40 % FIo2 . She had a Trach placed and seems C/O trouble eating CXR shows mild vascular congestion Objective Vital Signs Date Time Temp Pulse Resp B/P (MAP) Pulse Ox O2 Delivery O2 Flow Rate FiO2 01/12/17 19:42 95 Trach Collar 6.00 35 01/12/17 17:20 98.4 90 20 127/60 (82) 100 01/12/17 12:05 98.5 80 18 140/73 (95) 96 01/12/17 09:03 93 Trach Collar 6.00 35 01/12/17 08:10 98.5 84 18 167/91 (116) 95 01/12/17 04:00 97.2 83 18 149/81 (103) 93 01/11/17 20:28 100 Trach Collar 10.00 35 I/O 01/11/17 01/11/17 01/11/17 01/12/17 01/12/17 01/12/17 07:00 15:00 23:00 07:00 15:00 23:00 Intake Total 0 ml 1440 ml Balance 0 ml 1440 ml Intake Oral 0 ml 1440 ml # Voids 1 # Bowel Movements 0 Result Diagram: 01/10/17 1058 01/11/17 1431 Objective Remarks PHYSICAL EXAMINATION GENERAL: This is a middle-aged obese white female who is on the vent with a Trach HEENT: Normocephalic. Pupils reactive and equal. Nasal mucosae clear. NECK: Supple. No bruits or thyroid enlargement or lymphadenopathy. Trachea midline. CHEST: Equal movements with scattered wheezes and prolonged expirations. HEART: The heart sounds are irregular, S1-S2. No murmur. No S3. ABDOMEN: Soft and slightly distended. Bowel sounds are active. No organomegaly. EXTREMITIES: No edema. Reflexes are 1+. NEUROLOGIC: The patient is alert and has no deficits SKIN: Negative. Assessment and Plan Assessment and Plan IMPRESSION 1. Hypercapnic respiratory failure.Resolved 2. Severe COPD with emphysema. 3. History of diabetes mellitus. 4. Hypertension. 5. History of obstructive sleep apnea. 6. CKD 1V/KAILEE Plan : 1. Continue on T collar at 35 % 2. Cont PM valve daytime 3. PT evaluation 4. Nebs q6h with duoneb 5. CBC,BMP in am 6. Diet as tolerated 7. Rehab Placement D'Yanes,V. Nirav MD Jan 12, 2017 20:24
[2017-01-13] VITALS (8 sets, daily range): BP systolic 67–139; BP diastolic 60–73; PULSE 74–88; RESP 18–20; TEMP 97.6–99; O2SAT 90–99
[2017-01-13] MEDS: RESP: ALBUTEROL 2.5 MG/IPRATROPIUM 0.5 MG NEB (SCH) NEB ×6 (00:05→21:05)
[2017-01-13] MEDS: ALPRAZolam 0.5 MG TAB PO PRN ×2 (02:49→20:52)
[2017-01-13] MEDS: HEPARIN SODIUM - SQ 10,000 UNITS/ML VIAL SQ SCH ×2 (02:51→12:41)
[2017-01-13] MEDS: INSULIN NovoLIN REGULAR SUPPLEMENTAL SCALE SQ SCH ×4 (02:56→21:14)
[2017-01-13] MEDS: LABETALOL HCL 200 MG TAB PO SCH ×3 (02:57→20:52)
[2017-01-13] MEDS: RESP: ACETYLCYSTEINE 20% 30 ML NEB NEB SCH ×4 (03:57→21:05)
[2017-01-13] MEDS: CHLORHEXIDINE GLUCONATE 2 % 1 PACK (2 CLOTHS) TOP SCH (04:18)
[2017-01-13] MEDS: ISOSORBIDE DINITRATE 10 MG TAB PO SCH ×2 (05:48→12:41)
[2017-01-13] MEDS: cloNIDine HCL 0.3 MG TAB PO SCH ×2 (05:48→12:44)
[2017-01-13] MEDS: NIFEdipine 20 MG CAP PO SCH ×2 (05:48→12:44)
[2017-01-13] MEDS: hydrALAZINE HCL 100 MG TAB PO SCH ×2 (05:48→12:44)
[2017-01-13] MEDS: UMECLIDINIUM 62.5 MCG/VILANTEROL 25 MCG INHALER INH SCH (07:48)
[2017-01-13] MEDS: NYSTATIN 100,000 U/GM PWD 15 GM BTL TOPICAL SCH ×2 (07:48→20:54)
[2017-01-13] MEDS: CHOLECALCIFEROL (VIT D3) 1000 UNIT TAB NG SCH (07:49)
[2017-01-13] MEDS: GABAPENTIN 100 MG CAP PO SCH ×3 (07:49→17:18)
[2017-01-13] MEDS: methylPREDNISolone SOD SUCC 40 MG/1 ML VIAL IV PUSH SCH ×2 (07:49→20:54)
[2017-01-13] MEDS: guaiFENesin E.R. 600 MG TAB PO SCH ×2 (07:49→20:52)
[2017-01-13] MEDS: SODIUM CHLORIDE 0.9% FLUSH 10 ML FLUSH IVF SCH (07:50)
[2017-01-13] MEDS: CALCIUM CARBONATE 1.25 GM (CA 500 MG) TAB PO SCH ×2 (07:50→20:52)
[2017-01-13] MEDS: SODIUM CHLORIDE 0.9% FLUSH 10 ML FLUSH IV FLUSH SCH ×2 (07:50→20:53)
[2017-01-13] MEDS: PANTOPRAZOLE SOD 20 MG DELAYED RELEASE TAB PO SCH (07:50)
[2017-01-13] MEDS: CALCITRIOL 0.25 MCG CAP NG SCH (07:50)
[2017-01-13] MEDS: DOCUSATE SODIUM 100 MG/10 ML UDC PO SCH ×2 (07:50→20:54)
[2017-01-13] MEDS: CHLORHEXIDINE 0.12% (ORAL KIT) 15 ML CUP MT SCH ×2 (07:51→20:53)
[2017-01-13] MEDS: BUDESONIDE-FORMOTEROL 160/4.5 MCG INHALER INH SCH ×2 (09:29→21:07)
[2017-01-13 09:55] LABS: HEMATOCRIT 26.1 % (35.0-46.0); MEAN CELL VOLUME 90.4 FL (80.0-100.0); MEAN CORPUSCULAR HEMOGLOBIN 30.8 PG (27.0-34.0); PLATELET COUNT 213 TH/MM3 (150-450); RED BLOOD COUNT 2.89 MIL/MM3 (4.00-5.30); RED CELL DISTRIBUTION WIDTH 16.3 % (11.6-17.2); REVIEW FLAG FINAL; WHITE BLOOD COUNT 9.1 TH/MM3 (4.0-11.0)
--- NOTE | 2017-01-13 10:18 | HHI.PR ---
Subjective Remarks Follow-up for COPD exacerbation and infection Patient stated her SOB has improved drastically. She stated that when she gets anxiety it exacerbates her COPD. Patient also feels that the Mucinex is helping. Otherwise no other complaints. 10- STILL GETTING BREATHING TREATMENTS STILL HAVING LOTS OF SECRETIONS FROM TRACH AND MUCUS WILL NEED SNF AT DC Objective Vitals Vital Signs Date Time Temp Pulse Resp B/P (MAP) Pulse Ox O2 Delivery O2 Flow Rate FiO2 01/13/17 08:22 99.0 75 18 119/70 (86) 91 01/13/17 05:32 97.6 75 20 139/67 (91) 94 01/13/17 00:45 97.8 88 20 130/60 (83) 98 01/13/17 00:10 99 Trach Collar 6.00 35 01/12/17 20:35 97.6 76 20 133/74 (93) 94 01/12/17 19:42 95 Trach Collar 6.00 35 01/12/17 17:20 98.4 90 20 127/60 (82) 100 01/12/17 12:05 98.5 80 18 140/73 (95) 96 I/O 01/12/17 01/12/17 01/12/17 01/13/17 01/13/17 01/13/17 07:00 15:00 23:00 07:00 15:00 23:00 Intake Total 1440 ml 360 ml Balance 1440 ml 360 ml Intake Oral 1440 ml 360 ml # Voids 3 Result Diagram: 01/13/17 0916 01/11/17 1431 Other Results Laboratory Tests Test 01/10/17 10:58 01/11/17 14:31 01/13/17 09:16 White Blood Count 5.2 TH/MM3 9.1 TH/MM3 Red Blood Count 2.64 MIL/MM3 2.89 MIL/MM3 Hemoglobin 8.1 GM/DL 8.9 GM/DL Hematocrit 24.0 % 26.1 % Mean Corpuscular Volume 91.0 FL 90.4 FL Mean Corpuscular Hemoglobin 30.7 PG 30.8 PG Mean Corpuscular Hemoglobin Concent 33.7 % 34.0 % Red Cell Distribution Width 16.0 % 16.3 % Platelet Count 229 TH/MM3 213 TH/MM3 Mean Platelet Volume 6.6 FL 6.5 FL Blood Urea Nitrogen 34 MG/DL 38 MG/DL Creatinine 2.18 MG/DL 2.16 MG/DL Random Glucose 246 MG/DL 193 MG/DL Calcium Level 9.8 MG/DL 10.2 MG/DL Sodium Level 134 MEQ/L 133 MEQ/L Potassium Level 4.6 MEQ/L 5.1 MEQ/L Chloride Level 102 MEQ/L 99 MEQ/L Carbon Dioxide Level 23.6 MEQ/L 25.9 MEQ/L Anion Gap 8 MEQ/L 8 MEQ/L Estimat Glomerular Filtration Rate 23 ML/MIN 23 ML/MIN Albumin 3.3 GM/DL Phosphorus Level 4.1 MG/DL Imaging Last Impressions Chest X-Ray 01/09/17 0600 Signed Impressions: Service Date/Time: Monday, January 09, 2017 05:11 - CONCLUSION: 1. Basilar airspace disease similar to January 07. Small effusions. Tracheostomy in good position. Freddie Tubbs MD Abdomen X-Ray 12/26/16 0000 Signed Impressions: Service Date/Time: Monday, December 26, 2016 21:33 - CONCLUSION: Nasogastric tube tip is at the gastric outlet. Nirav Savage MD Liver Ultrasound 12/16/16 0000 Signed Impressions: Service Date/Time: Friday, December 16, 2016 15:25 - CONCLUSION: 1. The liver is prominent with no focal lesion or ascites. 2. The right kidney is small and atrophic in appearance with cortical thinning and no hydronephrosis. There is increased echogenicity most characteristic of medical renal disease. Dylan Bryant MD Renal Ultrasound 12/14/16 0000 Signed Impressions: Service Date/Time: Wednesday, December 14, 2016 18:21 - CONCLUSION: Medical renal disease with echogenic kidneys. There is some atrophy of the right kidney. Nirav Camacho MD Head CT 12/14/16 0000 Signed Impressions: Service Date/Time: Wednesday, December 14, 2016 17:38 - CONCLUSION: Negative for an acute process. Sander Resendiz MD FACR Objective Remarks GENERAL: AWAKE AND ALERT ON TRACH COLLAR SKIN: Warm and dry. HEAD: Atraumatic. Normocephalic. EYES: Pupils equal and round. No scleral icterus. No injection or drainage. EOMI ENT: No nasal bleeding or discharge. Mucous membranes pink and moist.TONGUE MIDLINE NECK: Trachea midline. No JVD. TRACHEOSTOMY IN PLACE CARDIOVASCULAR: Regular rate and rhythm. S1, S2 NO S3 OR S4 RESPIRATORY: No accessory muscle use. COARSE AND RHONCHI BL. Breath sounds equal bilaterally. GASTROINTESTINAL: Abdomen soft, non-tender, nondistended. Hepatic and splenic margins not palpable. OBESE MUSCULOSKELETAL: Extremities without clubbing, cyanosis, or edema. No obvious deformities. NEUROLOGICAL: Awake and alert. No obvious cranial nerve deficits. Motor grossly within normal limits. Five out of 5 muscle strength in the arms and legs. Normal speech. PSYCHIATRIC: INAppropriate mood and affect; insight and judgment ABnormal. Procedures SP TRACHEOSTOMY 12-26 SP PEG 12-27 SP VDRF Medications and IVs Current Medications Sodium Chloride (NS Flush) 2 ml UNSCH PRN IVF FLUSH AFTER USING IV ACCESS; Start 12/14/16 at 14:15; Stop 12/16/16 at 08:01; Status DC Methylprednisolone Sodium Succinate (SoluMEDROL INJ) 125 mg ONCE ONCE IVP Last administered on 12/14/16 14:41; Start 12/14/16 at 14:15; Stop 12/14/16 at 14: 16; Status DC Albuterol Sulfate (Albuterol Neb) 2.5 mg Q15M INH Last administered on 14:19; Start 12/14/16 at 14:15; Stop 12/14/16 at 14:46; Status DC Magnesium Sulfate/ Dextrose 100 ml @ 100 mls/hr ONCE ONCE IV Last administered on 12/14/16 14:40; Start 12/14/16 at 14:15; Stop 12/14/16 at 15:14; Status DC Etomidate (Amidate Inj) 20 mg STK-MED ONCE .ROUTE ; Start 12/14/16 at 15:09; Stop 12/14/16 at 15:10; Status DC Succinylcholine Chloride (Quelicin Inj) 200 mg STK-MED ONCE .ROUTE ; Start at 15:09; Stop 12/14/16 at 15:10; Status DC Midazolam HCl (Versed Inj) 1 mg ONCE ONCE IV PUSH Last administered on 16:08; Start 12/14/16 at 15:45; Stop 12/14/16 at 15:46; Status DC Midazolam HCl 100 ml @ 2 mls/hr TITRATE PRN IV SEDATION Last administered on 13:50; Start 12/14/16 at 15:45; Stop 12/22/16 at 11:39; Status DC Sodium Chloride 1,000 ml @ 999 mls/hr BOLUS ONCE IV Last administered on 16:07; Start 12/14/16 at 15:45; Stop 12/14/16 at 16:45; Status DC Midazolam HCl 100 ml @ As Directed STK-MED ONCE .ROUTE ; Start 12/14/16 at 15:38 ; Stop 12/14/16 at 15:39; Status DC Furosemide (Lasix Inj) 20 mg ONCE ONCE IV PUSH Last administered on 12/14/16 17:14; Start 12/14/16 at 16:00; Stop 12/14/16 at 16:01; Status DC Calcium Chloride 2 gm/Sodium Chloride 120 ml @ 120 mls/hr ONCE ONCE IV Last administered on 12/14/16 23:10; Start 12/14/16 at 17:00; Stop 12/14/16 at 17:59; Status DC Sodium Chloride 1,000 ml @ 84 mls/hr [id number] IV Last administered on 12/14/16 17:14; Start 12/14/16 at 16:00; Stop 12/14/16 at 17:28; Status DC Sodium Chloride (NS Flush) 2 ml UNSCH PRN IV FLUSH FLUSH AFTER USING IV ACCESS Last administered on 12/26/16 13:54; Start 12/14/16 at 16:00 Sodium Chloride (NS Flush) 2 ml BID IV FLUSH Last administered on 01/13/17 07: 50; Start 12/14/16 at 21:00 Acetaminophen (Tylenol) 650 mg Q6H PRN PO PAIN 1-10 AND/OR FEVER >101F; Start 12/14/16 at 16:00; Stop 12/29/16 at 09:40; Status DC Famotidine (Pepcid Inj) 10 mg Q12HR IV PUSH Last administered on 01/03/17 09: 24; Start 12/14/16 at 21:00; Stop 01/03/17 at 11:50; Status DC Artificial Tears (Tears Naturale Opth Soln) 1 drop TID EACH EYE Last administered on 01/03/17 09:22; Start 12/14/16 at 18:00; Stop 01/05/17 at 10:17 ; Status DC Ondansetron HCl (Zofran Inj) 4 mg Q6H PRN IV NAUSEA OR VOMITING; Start 12/14/16 at 16:00 Albuterol/ Ipratropium (Duoneb Neb) 1 ampule Q4HR NEB INH Last administered on 12/17/16 15:45; Start 12/14/16 at 16:00; Stop 12/17/16 at 17:33; Status DC Albuterol Sulfate (Albuterol Neb) 2.5 mg Q2HR NEB PRN INH SOB/WHEEZING Last administered on 01/11/17 12:33; Start 12/14/16 at 16:00 Heparin Sodium (Porcine) (Heparin Inj) 5,000 units Q12H SQ Last administered on 01/03/17 15:48; Start 12/14/16 at 17:00; Stop 01/03/17 at 17:55; Status DC Miscellaneous Information 1 [id number] XX ; Start 12/14/16 at 16:00 Chlorhexidine Gluconate (Chlorhexidine 2% Cloth) Taper DAILY@04 TOP Last administered on 01/12/17 04:00; Start 12/15/16 at 04:00; Stop 12/11/17 at 03:59 Chlorhexidine Gluconate (Chlorhexidine 2% Cloth) 3 pack UNSCH PRN TOP HYGIENIC CARE; Start 12/14/16 at 16:00 Senna/Docusate Sodium (Alma-Colace) 1 tab BID PO Last administered on 09:25; Start 12/14/16 at 21:00; Stop 01/03/17 at 11:57; Status DC Magnesium Hydroxide (Milk Of Magnesia Liq) 30 ml Q12H PRN PO MILD - MODERATE CONSTIPATION; Start 12/14/16 at 16:00 Sennosides (Senokot) 17.2 mg Q12H PRN PO MODERATE - SEVERE CONSTIPATION; Start 12/14/16 at 16:00 Bisacodyl (Dulcolax Supp) 10 mg DAILY PRN RECTAL SEVERE CONSITIPATION; Start at 16:00 Lactulose (Lactulose Liq) 30 ml DAILY PRN PO SEVERE CONSITIPATION; Start at 16:00 Chlorhexidine Gluconate (Peridex 0.12% Liq) 15 ml BID@08,20 MT Last administered on 01/11/17 20:00; Start 12/14/16 at 20:00 Propofol 100 ml @ 2.34 mls/hr TITRATE PRN IV SEDATION Last administered on 04:45; Start 12/14/16 at 16:00; Stop 12/30/16 at 08:04; Status DC Fentanyl Citrate 250 ml @ 5 mls/hr TITRATE PRN IV SEDATION Last administered on 12/16/16 02:23; Start 12/14/16 at 16:00; Stop 12/15/16 at 17:18; Status DC Etomidate (Amidate Inj) 20 mg ONCE ONCE IV PUSH ; Start 12/14/16 at 16:45; Stop 12/14/16 at 16:46; Status DC Succinylcholine Chloride (Quelicin Inj) 50 mg ONCE ONCE IV PUSH Last administered on 12/14/16 16:36; Start 12/14/16 at 16:45; Stop 12/14/16 at 16:46; Status DC Phenylephrine HCl 160 mg/Dextrose 500 ml @ 7.5 mls/hr TITRATE PRN IV Blood pressure management; Start 12/14/16 at 16:45; Stop 12/17/16 at 11:05; Status DC Terbutaline Sulfate (Brethine Inj) 1 mg UNSCH PRN SQ For Extravasation; Start 12/14/16 at 16:45; Stop 12/22/16 at 11:39; Status DC Sodium Chloride (NS Flush) DAILY IVF Last administered on 01/10/17 09:43; Start 12/15/16 at 09:00 Sodium Chloride (NS Flush) UNSCH PRN IVF SEE PROTOCOL; Start 12/14/16 at 16:45 Budesonide (Pulmicort Respule Neb) 0.5 mg Q12HR NEB NEB Last administered on 21:20; Start 12/14/16 at 20:00; Stop 01/09/17 at 08:58; Status DC Methylprednisolone Sodium Succinate (SoluMEDROL INJ) 60 mg Q6HR IV PUSH Last administered on 12/18/16 17:00; Start 12/14/16 at 18:00; Stop 12/18/16 at 19:01; Status DC Piperacillin Sod/ Tazobactam Sod 50 ml @ 100 mls/hr Q8H IV Last administered on 12/21/16 23:53; Start 12/14/16 at 18:00; Stop 12/22/16 at 12:01; Status DC Azithromycin 500 mg/Sodium Chloride 250 ml @ 250 mls/hr Q24H IV Last administered on 12/14/16 20:28; Start 12/14/16 at 20:00; Stop 12/14/16 at 20:59; Status DC Pharmacy Profile Note 0 ml @ 0 mls/hr UNSCH OTHER ; Start 12/14/16 at 17:15; Stop 12/22/16 at 11:51; Status DC Vancomycin HCl 1250 mg/Sodium Chloride 262.5 ml @ 250 mls/hr ONCE ONCE IV Last administered on 12/14/16 23:30; Start 12/14/16 at 18:00; Stop 12/14/16 at 19: 02; Status DC Bumetanide (Bumex Inj) 1 mg BID@,18 IV PUSH ; Start 12/14/16 at 18:00; Stop 12/14/16 at 18:00; Status DC Bumetanide (Bumex Inj) 2 mg BID@,18 IV PUSH Last administered on 12/16/16 17: 43; Start 12/14/16 at 18:00; Stop 12/22/16 at 11:55; Status DC Bumetanide (Bumex Inj) 1 mg ONCE ONCE IV PUSH ; Start 12/14/16 at 17:45; Stop at 17:47; Status DC Azithromycin 250 mg/Sodium Chloride 250 ml @ 250 mls/hr Q24H IV ; Start at 20:00; Stop 12/15/16 at 20:00; Status DC Sodium Chloride 1,000 ml @ 999 mls/hr BOLUS ONCE IV ; Start 12/14/16 at 19:30; Stop 12/14/16 at 20:30; Status DC Sodium Bicarbonate (Sodium Bicarbonate 8.4% Inj) 100 meq ONCE ONCE IV PUSH Last administered on 12/14/16 23:09; Start 12/14/16 at 20:00; Stop 12/14/16 at 20: 02; Status DC Sodium Bicarbonate 150 meq/Sterile Water 1,000 ml @ 30 mls/hr Q24H IV Last administered on 12/14/16 23:09; Start 12/14/16 at 20:00; Stop 12/15/16 at 09:22; Status DC Epoprostenol Sodium 62.5 ml/ Sodium Chloride 100 ml @ 8 mls/hr Q8H NEB Last administered on 12/15/16 07:43; Start 12/14/16 at 22:00; Stop 12/15/16 at 15:43; Status DC Sodium Chloride 1,000 ml @ 999 mls/hr BOLUS ONCE IV Last administered on 23:31; Start 12/14/16 at 23:00; Stop 12/15/16 at 00:00; Status DC Sodium Chloride 1,000 ml @ 999 mls/hr BOLUS ONCE IV Last administered on 08:14; Start 12/15/16 at 08:00; Stop 12/15/16 at 09:00; Status DC Calcium Chloride 2 gm/Sodium Chloride 120 ml @ 120 mls/hr ONCE ONCE IV Last administered on 12/15/16 08:31; Start 12/15/16 at 08:00; Stop 12/15/16 at 09:00; Status DC Levofloxacin/ Dextrose 100 ml @ 100 mls/hr Q48H IV Last administered on 08:30; Start 12/15/16 at 09:00; Stop 12/22/16 at 12:01; Status DC Dextrose (D50w (Vial) Inj) 50 ml UNSCH PRN IV HYPOGLYCEMIA-SEE COMMENTS; Start 12/15/16 at 09:00; Stop 12/31/16 at 08:58; Status DC Glucagon (Glucagon Inj) 1 mg UNSCH PRN OTHER HYPOGLYCEMIA-SEE COMMENTS; Start 12/15/16 at 09:00; Stop 12/31/16 at 08:58; Status DC Insulin Aspart (NovoLOG SUPPLEMENTAL SCALE) 1 Q4HR SQ Last administered on 12/30 20:00; Start 12/15/16 at 12:00; Stop 12/31/16 at 08:51; Status DC Arginine HCl (Steve Powder) 1 pack BID G-TUBE Last administered on 12/29/16 21 :00; Start 12/15/16 at 09:00; Stop 12/31/16 at 09:04; Status DC Sodium Chloride 1,000 ml @ 84 mls/hr [id number] IV Last administered on 12/15/16 21:49; Start 12/15/16 at 09:30; Stop 12/16/16 at 07:23; Status DC Epoprostenol Sodium 50 ml/ Sodium Chloride 100 ml @ 8 mls/hr ONCE ONCE NEB Last administered on 12/15/16 15:44; Start 12/15/16 at 16:00; Stop 12/16/16 at 04: 29; Status DC Epoprostenol Sodium 37.5 ml/ Sodium Chloride 100 ml @ 8 mls/hr ONCE ONCE NEB Last administered on 12/16/16 04:48; Start 12/16/16 at 00:00; Stop 12/16/16 at 12: 29; Status DC Epoprostenol Sodium 25 ml/ Sodium Chloride 100 ml @ 8 mls/hr ONCE ONCE NEB Last administered on 12/16/16 08:25; Start 12/16/16 at 08:00; Stop 12/16/16 at 20: 29; Status DC Epoprostenol Sodium 12.5 ml/ Sodium Chloride 100 ml @ 8 mls/hr ONCE ONCE NEB Last administered on 12/16/16 16:01; Start 12/16/16 at 16:00; Stop 12/17/16 at 04: 01; Status DC Hydralazine HCl (Apresoline) 100 mg Q8HR PO Last administered on 01/13/17 05: 48; Start 12/15/16 at 14:00 Clevidipine 50 ml @ 2 mls/hr TITRATE PRN IV Blood Pressure Management; Start at 10:30; Stop 12/17/16 at 17:33; Status DC Isosorbide Dinitrate (Isordil) 10 mg Q8HR PO Last administered on 01/13/17 05: 48; Start 12/15/16 at 14:00 Hydralazine HCl (Apresoline Inj) 10 mg Q1HR PRN IV PUSH SBP>160, DBP>90 Last administered on 12/31/16 11:27; Start 12/15/16 at 10:30; Stop 01/10/17 at 18:52 ; Status DC Nitroglycerin (Nitroglycerin 2% Oint) 2 inch Q6HR PRN TOPICAL SBP>160, DBP>90 Last administered on 12/26/16 13:47; Start 12/15/16 at 10:30 Fentanyl Citrate 250 ml @ 5 mls/hr TITRATE PRN IV SEDATION Last administered on 12/26/16 17:36; Start 12/15/16 at 10:30; Stop 12/30/16 at 08:04; Status DC Calcium Chloride 2 gm/Sodium Chloride 120 ml @ 120 mls/hr ONCE ONCE IV ; Start 12/15/16 at 17:15; Stop 12/15/16 at 17:25; Status DC Calcium Chloride 2 gm/Sodium Chloride 120 ml @ 120 mls/hr ONCE ONCE IV Last administered on 12/15/16 18:04; Start 12/15/16 at 18:00; Stop 12/15/16 at 18:59; Status DC Nifedipine (Procardia) 10 mg Q8HR PO Last administered on 12/16/16 13:27; Start 12/16/16 at 14:00; Stop 12/16/16 at 17:53; Status DC Clonidine (Catapres) 0.1 mg Q12HR PO Last administered on 12/17/16 08:04; Start 12/16/16 at 09:00; Stop 12/17/16 at 11:17; Status DC Polyethylene Glycol (Miralax) 17 gm BID OG-TUBE Last administered on 12/29/16 21:17; Start 12/16/16 at 09:00; Stop 12/31/16 at 09:04; Status DC Lactulose (Lactulose Liq) 30 ml BID OG-TUBE Last administered on 12/29/16 21: 18; Start 12/16/16 at 09:00; Stop 12/31/16 at 09:04; Status DC Mineral Oil (Mineral Oil Liq) 30 ml ONCE ONCE NG Last administered on 08:33; Start 12/16/16 at 08:15; Stop 12/16/16 at 08:16; Status DC Vancomycin HCl 1250 mg/Sodium Chloride 262.5 ml @ 250 mls/hr ONCE ONCE IV Last administered on 12/16/16 11:33; Start 12/16/16 at 11:00; Stop 12/16/16 at 12: 02; Status DC Nifedipine (Procardia) 20 mg Q8HR PO Last administered on 12/18/16 06:00; Start 12/16/16 at 22:00; Stop 12/18/16 at 08:43; Status DC Cisatracurium Besylate (Nimbex Inj) 18 mg ONCE ONCE IV PUSH Last administered on 12/17/16 01:30; Start 12/17/16 at 01:30; Stop 12/17/16 at 01:37; Status DC Cisatracurium Besylate 100 mg/ Sodium Chloride 260 ml @ 14.04 mls/ hr TITRATE PRN IV TOF 1/4 Last administered on 12/17/16 02:10; Start 12/17/16 at 01:30; Stop 12/17/16 at 07:25; Status DC Artificial Tears (Lacrilube Opht Oint) 1 applic Q12HR EACH EYE Last administered on 01/03/17 09:21; Start 12/17/16 at 09:00; Stop 01/03/17 at 11:50 ; Status DC Bumetanide 100 ml @ 4 mls/hr Q24H IV Last administered on 12/19/16 06:00; Start 12/17/16 at 02:34; Stop 12/19/16 at 09:26; Status DC Epoprostenol Sodium 12.5 ml/ Sodium Chloride 100 ml @ 8 mls/hr ONCE ONCE NEB Last administered on 12/17/16 02:00; Start 12/17/16 at 04:15; Stop 12/17/16 at 16: 44; Status DC Calcium Chloride 2 gm/Dextrose 120 ml @ 120 mls/hr ONCE ONCE IV Last administered on 12/17/16 04:30; Start 12/17/16 at 04:30; Stop 12/17/16 at 05:29; Status DC Cisatracurium Besylate 100 mg/ Sodium Chloride 250 ml @ 13.96 mls/ hr TITRATE PRN IV TOF goal 1/4 Last administered on 12/17/16 08:03; Start 12/17/16 at 07:30 ; Stop 12/18/16 at 08:40; Status DC Calcium Acetate (Phoslo) 667 mg TID PO Last administered on 12/28/16 09:14; Start 12/17/16 at 13:00; Stop 12/28/16 at 09:58; Status DC Clonidine (Catapres) 0.3 mg Q8HR PO Last administered on 01/13/17 05:48; Start 12/17/16 at 14:00 Albuterol/ Ipratropium (Duoneb Neb) 1 ampule Q4HR NEB INH Last administered on 12/21/16 12:04; Start 12/17/16 at 20:00; Stop 12/21/16 at 15:36; Status DC Clevidipine 50 ml @ 2 mls/hr TITRATE PRN IV Blood Pressure Management; Start at 17:45; Stop 12/18/16 at 08:40; Status DC Hydromorphone HCl (Dilaudid) 1 mg Q6H PO Last administered on 12/28/16 05:17; Start 12/17/16 at 18:00; Stop 12/28/16 at 07:29; Status DC Nicardipine HCl 25 mg/Sodium Chloride 260 ml @ 52 mls/hr TITRATE PRN IV Blood pressure management Last administered on 12/18/16 00:14; Start 12/17/16 at 23:45 ; Stop 12/22/16 at 11:39; Status DC Sodium Chloride 1,000 ml @ 10 mls/hr Q24H IV Last administered on 12/30/16 03 :00; Start 12/18/16 at 03:00; Stop 12/30/16 at 08:04; Status DC Potassium Chloride 100 ml @ 50 mls/hr Q2H IV Last administered on 12/18/16 11: 28; Start 12/18/16 at 09:00; Stop 12/18/16 at 12:59; Status DC Nifedipine (Procardia) 40 mg Q8HR PO Last administered on 01/13/17 05:48; Start 12/18/16 at 14:00 Calcium Chloride 2 gm/Dextrose 120 ml @ 120 mls/hr ONCE ONCE IV Last administered on 12/18/16 12:08; Start 12/18/16 at 11:30; Stop 12/18/16 at 12:29; Status DC Calcium Gluconate (Calcium Gluconate Inj) 1 gm ONCE ONCE IV PUSH ; Start at 09:30; Stop 12/18/16 at 11:16; Status DC Calcitriol (Rocaltrol) 0.25 mcg DAILY NG Last administered on 01/13/17 07:50; Start 12/18/16 at 10:30 Cholecalciferol (Vitamin D3) 2,000 units DAILY NG Last administered on 07:49; Start 12/18/16 at 10:30 Methylprednisolone Sodium Succinate (SoluMEDROL INJ) 40 mg Q6HR IV PUSH Last administered on 12/21/16 12:49; Start 12/19/16 at 00:00; Stop 12/21/16 at 13:57; Status DC Insulin Detemir (Levemir Inj) 10 units Q12HR SQ Last administered on 12/30/16 23:34; Start 12/18/16 at 21:00; Stop 12/31/16 at 08:49; Status DC Bumetanide (Bumex Inj) 1 mg TID IV PUSH Last administered on 12/22/16 08:26; Start 12/19/16 at 13:00; Stop 12/22/16 at 11:55; Status DC Sodium Chloride 1,000 ml @ 0 mls/hr Q0M PRN OTHER For Prime & Rinse Back Last administered on 12/25/16 14:01; Start 12/20/16 at 08:05 Heparin Sodium (Porcine) (Heparin Inj) 8,000 units UNSCH PRN IVF WITH DIALYSIS ; Start 12/20/16 at 08:15 Sodium Chloride 1,000 ml @ 200 mls/hr Q5H PRN IV WITH DIALYSIS; Start 12/20/16 at 08:05 Sodium Chloride 1,000 ml @ 0 mls/hr Q0M PRN OTHER WITH DIALYSIS; Start 12/20/16 at 08:05 Mannitol (Mannitol Inj) 12.5 gm UNSCH PRN IV WITH DIALYSIS; Start 12/20/16 at 08 :15 Albumin Human (Albumin 25% Inj) 25 gm UNSCH PRN IV WITH DIALYSIS Last administered on 12/27/16 16:51; Start 12/20/16 at 08:15 Sodium Chloride (NS Flush) 5 ml UNSCH PRN IV FLUSH WITH DIALYSIS Last administered on 12/25/16 14:01; Start 12/20/16 at 08:15 Heparin Sodium (Porcine) (Heparin Inj) UNSCH PRN .XX WITH DIALYSIS Last administered on 12/27/16 16:51; Start 12/20/16 at 08:15 Gentamicin Sulfate (Gentamicin (Dialysis) Inj) 20 mg UNSCH PRN IV WITH DIALYSIS Last administered on 12/27/16 16:51; Start 12/20/16 at 08:15 Ondansetron HCl (Zofran Inj) 4 mg UNSCH PRN IV WITH DIALYSIS; Start 12/20/16 at 08:15 Acetaminophen (Tylenol) 650 mg UNSCH PRN PO for headach, pain, temp > 101F Last administered on 01/05/17 14:19; Start 12/20/16 at 08:15 Diphenhydramine HCl (Benadryl) 25 mg UNSCH PRN PO for hives/itching/anaphylaxis ; Start 12/20/16 at 08:15 Nitroglycerin (Nitrostat Sl) 0.4 mg UNSCH PRN SL CHEST PAIN; Start 12/20/16 at 08:15 Clonidine (Catapres) 0.1 mg UNSCH PRN PO for BP > 180/100 X 2 readings Last administered on 12/22/16 10:37; Start 12/20/16 at 08:15; Stop 12/22/16 at 11:39; Status DC Gelatin (Gelfoam 12 Mm/7 Mm Top) 1 foam UNSCH PRN TOP SEE LABEL COMMENTS; Start 12/20/16 at 08:15 Calcium Gluconate 2 gm/Dextrose 120 ml @ 120 mls/hr ONCE ONCE IV Last administered on 12/20/16 10:41; Start 12/20/16 at 10:00; Stop 12/20/16 at 10:59; Status DC Calcium Gluconate (Calcium Gluconate) 1,000 mg DAILY PO ; Start 12/20/16 at 09:00 ; Stop 12/20/16 at 11:29; Status DC Rocuronium [address] (Zemuron Inj) 50 mg BOLUS ONCE IV Last administered on 12:00; Start 12/20/16 at 08:45; Stop 12/20/16 at 08:46; Status DC Vancomycin HCl 1250 mg/Sodium Chloride 262.5 ml @ 250 mls/hr ONCE ONCE IV Last administered on 12/20/16 10:41; Start 12/20/16 at 11:00; Stop 12/20/16 at 12: 02; Status DC Calcium Carbonate (Oscal) 250 mg DAILY PO ; Start 12/21/16 at 09:00; Stop at 09:00; Status DC Calcium Carbonate (Oscal) 500 mg DAILY PO Last administered on 12/21/16 08:31; Start 12/20/16 at 12:00; Stop 12/21/16 at 16:31; Status DC Methylprednisolone Sodium Succinate (SoluMEDROL INJ) 40 mg Q8HR IV PUSH Last administered on 12/27/16 04:46; Start 12/21/16 at 22:00; Stop 12/27/16 at 09:46 ; Status DC Calcium Chloride 2 gm/Dextrose 120 ml @ 120 mls/hr ONCE ONCE IV Last administered on 12/21/16 16:42; Start 12/21/16 at 15:30; Stop 12/21/16 at 16:29; Status DC Albuterol/ Ipratropium (Duoneb Neb) 1 ampule Q4HR NEB INH Last administered on 12/25/16 11:19; Start 12/21/16 at 16:00; Stop 12/25/16 at 11:32; Status DC Albuterol/ Ipratropium (Duoneb Neb) 1 ampule Q4HR NEB INH ; Start 12/21/16 at 16 :00; Status UNV Calcium Carbonate (Oscal) 500 mg Q12H PO Last administered on 01/13/17 07:50; Start 12/21/16 at 21:00 Calcium Gluconate 2 gm/Sodium Chloride 120 ml @ 60 mls/hr ONCE ONCE IV Last administered on 12/22/16 10:09; Start 12/22/16 at 10:00; Stop 12/22/16 at 11:59; Status DC Labetalol HCl (Trandate Inj) 20 mg Q15M PRN IV PUSH sbp > 160 Last administered on 12/23/16 01:55; Start 12/22/16 at 13:00 Hydralazine HCl (Apresoline Inj) 10 mg Q30M PRN IV PUSH sbp > 160; Start at 13:00; Stop 12/22/16 at 13:00; Status DC Hydralazine HCl (Apresoline) 50 mg Q8HR PO ; Start 12/22/16 at 11:45; Stop at 12:14; Status DC Labetalol HCl (Trandate) 200 mg Q8H PO Last administered on 01/13/17 02:57; Start 12/22/16 at 12:00 Albuterol/ Ipratropium (Duoneb Neb) 1 ampule Q4HR NEB INH Last administered on 12/29/16 08:18; Start 12/25/16 at 12:00; Stop 12/29/16 at 11:15; Status DC Midazolam HCl (Versed Inj) 5 mg ONCE ONCE IV PUSH Last administered on 11:00; Start 12/26/16 at 09:00; Stop 12/26/16 at 09:11; Status DC Fentanyl Citrate (fentaNYL INJ) 250 mcg ONCE ONCE IV PUSH ; Start 12/26/16 at 09:00; Stop 12/26/16 at 09:10; Status DC Rocuronium [address] (Zemuron Inj) 100 mg BOLUS ONCE IV Last administered on 11:00; Start 12/26/16 at 09:00; Stop 12/26/16 at 09:11; Status DC Fentanyl Citrate (fentaNYL INJ) 250 mcg ONCE ONCE IV PUSH Last administered on 12/26/16 12:05; Start 12/26/16 at 11:00; Stop 12/26/16 at 11:01; Status DC Lidocaine/ Epinephrine (Xylocaine-Epi 1%-1:100,000 Inj) 30 ml STK-MED ONCE .ROUTE ; Start 12/26/16 at 11:23; Stop 12/26/16 at 11:24; Status DC Methylprednisolone Sodium Succinate (SoluMEDROL INJ) 40 mg Q12HR IV PUSH Last administered on 12/29/16 09:22; Start 12/27/16 at 21:00; Stop 12/29/16 at 11:15 ; Status DC Cefazolin Sodium (Ancef Inj) 500 mg ONCE ONCE IM ; Start 12/27/16 at 10:00; Stop 12/27/16 at 10:01; Status Cancel Cefazolin Sodium 500 mg/Sodium Chloride 100 ml @ 200 mls/hr Q8H IV ; Start at 14:00; Status Cancel Cefazolin Sodium 500 mg/Sodium Chloride 100 ml @ 200 mls/hr ONCE ONCE IV Last administered on 12/27/16 14:26; Start 12/27/16 at 14:15; Stop 12/27/16 at 14:44; Status DC Propofol (Diprivan 200 Mg/20 ml Inj) 200 mg STK-MED ONCE IV ; Start 12/27/16 at 15:09; Stop 12/27/16 at 17:13; Status DC Fluconazole (Diflucan) 100 mg DAILY PO Last administered on 01/05/17 09:10; Start 12/29/16 at 10:00; Stop 01/05/17 at 09:59; Status DC Albuterol/ Ipratropium (Duoneb Neb) 1 ampule Q4HR NEB INH Last administered on 12/30/16 12:08; Start 12/29/16 at 12:00; Stop 12/30/16 at 13:44; Status DC Methylprednisolone Sodium Succinate (SoluMEDROL INJ) 40 mg DAILY IV PUSH Last administered on 01/03/17 09:24; Start 12/30/16 at 09:00; Stop 01/03/17 at 11:57 ; Status DC Potassium Phosphate 15 mmol/ Sodium Chloride 155 ml @ 38.75 mls/ hr ONCE ONCE IV Last administered on 12/29/16 12:57; Start 12/29/16 at 11:45; Stop at 15:44; Status DC Potassium Chloride (KCl Powder) 40 meq NOW PO Last administered on 12/30/16 00 :48; Start 12/30/16 at 00:15; Stop 12/30/16 at 02:00; Status DC Albuterol/ Ipratropium (Duoneb Neb) 1 ampule QID NEB INH Last administered on 01/03/17 11:05; Start 12/30/16 at 16:00; Stop 01/03/17 at 11:28; Status DC Dextrose (D50w (Vial) Inj) 50 ml UNSCH PRN IV HYPOGLYCEMIA-SEE COMMENTS; Start 12/31/16 at 09:00 Glucagon (Glucagon Inj) 1 mg UNSCH PRN OTHER HYPOGLYCEMIA-SEE COMMENTS; Start 12/31/16 at 09:00 Insulin Human Regular (NovoLIN R SUPPLEMENTAL SCALE) 1 Q6H SQ Last administered on 01/13/17 08:09; Start 12/31/16 at 09:00 Alprazolam (Xanax) 0.5 mg Q8H PRN PO anxiety Last administered on 01/13/17 02: 49; Start 01/01/17 at 14:45 Albuterol Sulfate (Albuterol Neb) 2.5 mg STK-MED ONCE .ROUTE ; Start 01/01/17 at 19:46; Stop 01/01/17 at 19:47; Status DC Epoetin Amauri (Epogen Inj) 20,000 units ONCE ONCE SQ Last administered on 11:02; Start 01/03/17 at 08:45; Stop 01/03/17 at 08:49; Status DC Albuterol/ Ipratropium (Duoneb Neb) 1 ampule QID NEB INH Last administered on 01/07/17 15:15; Start 01/03/17 at 16:00; Stop 01/07/17 at 15:59; Status DC Docusate Sodium (Colace) 100 mg BID PO ; Start 01/03/17 at 21:00; Status UNV Pantoprazole Sodium (Protonix) 20 mg DAILY PO Last administered on 01/13/17 07 :50; Start 01/04/17 at 09:00 Methylprednisolone Sodium Succinate (SoluMEDROL INJ) 20 mg DAILY IV PUSH ; Start 01/04/17 at 09:00; Stop 01/04/17 at 09:00; Status DC Docusate Sodium (Colace Liq) 100 mg Q12HR PO Last administered on 01/12/17 22: 16; Start 01/03/17 at 21:00 Prednisone (Deltasone) 10 mg DAILY PO Last administered on 01/10/17 09:33; Start 01/04/17 at 09:00; Stop 01/10/17 at 13:01; Status DC Tramadol HCl (Ultram) 50 mg Q6H PRN PO breakthrough pain Last administered on 04:10; Start 01/03/17 at 15:30 Gabapentin (Neurontin) 100 mg TID PO Last administered on 01/13/17 07:49; Start 01/06/17 at 13:00 Heparin Sodium (Porcine) (Heparin Inj) 5,000 units Q12H SQ Last administered on 01/13/17 02:51; Start 01/05/17 at 14:00 Sodium Chloride 500 ml @ 500 mls/hr BOLUS ONCE IV Last administered on 14:11; Start 01/06/17 at 12:45; Stop 01/06/17 at 13:44; Status DC Propofol (Diprivan 200 Mg/20 ml Inj) 20 mg STK-MED ONCE IV ; Start 12/27/16 at 11:30; Stop 01/07/17 at 11:30; Status DC Albuterol/ Ipratropium (Duoneb Neb) 1 ampule Q6HR NEB PRN NEB wheezing/sob Last administered on 01/08/17 21:20; Start 01/08/17 at 09:30; Stop 01/09/17 at 08:44; Status DC Nystatin (Mycostatin Powder) 1 applic Q12HR TOPICAL Last administered on 07:48; Start 01/09/17 at 09:00 Albuterol/ Ipratropium (Duoneb Neb) 1 ampule Q6HR NEB NEB Last administered on 01/11/17 08:50; Start 01/09/17 at 10:00; Stop 01/11/17 at 12:30; Status DC Budesonide/ Formoterol Fumarate (Symbicort 160-4.5 Inh) 2 puff Q12HR INH Last administered on 01/13/17 09:29; Start 01/09/17 at 10:00 Bumetanide (Bumex Inj) 1 mg ONCE ONCE IV PUSH Last administered on 01/09/17 14:03; Start 01/09/17 at 09:15; Stop 01/09/17 at 09:31; Status DC Pneumococcal Polyvalent Vaccine (Pneumovax-23 Inj) 25 mcg ONCE ONCE IM ; Start 01/10/17 at 10:00; Stop 01/10/17 at 10:01; Status DC Influenza Virus Vaccine (Flu (Quadrivalent) Vaccine Inj) 0.5 ml ONCE ONCE IM Last administered on 01/11/17 10:40; Start 01/10/17 at 10:00; Stop 01/10/17 at 10:01; Status DC Prednisone (Deltasone) 20 mg BID PO Last administered on 01/11/17 08:48; Start 01/10/17 at 21:00; Status Future Hold Acetylcysteine (Mucomyst 20% Neb) 2 ml Q6HR NEB NEB Last administered on 09:36; Start 01/10/17 at 16:00 Pneumococcal Polyvalent Vaccine (Pneumovax-23 Inj) 25 mcg ONCE ONCE IM ; Start 01/11/17 at 09:00; Stop 01/11/17 at 09:01; Status DC Influenza Virus Vaccine (Flu (Quadrivalent) Vaccine Inj) 0.5 ml ONCE ONCE IM ; Start 01/11/17 at 09:00; Stop 01/11/17 at 09:01; Status DC Methylprednisolone Sodium Succinate (SoluMEDROL INJ) 125 mg ONCE ONCE IV PUSH Last administered on 01/11/17 13:04; Start 01/11/17 at 13:00; Stop 01/11/17 at 13:01; Status DC Methylprednisolone Sodium Succinate (SoluMEDROL INJ) 40 mg Q6HR IV PUSH ; Start 01/11/17 at 18:00; Stop 01/11/17 at 18:00; Status DC Guaifenesin (Mucinex Er) 1,200 mg BID PO Last administered on 01/13/17 07:49; Start 01/11/17 at 12:30 Albuterol/ Ipratropium (Duoneb Neb) 1 ampule Q4HR NEB NEB Last administered on 01/13/17 09:36; Start 01/11/17 at 16:00 Methylprednisolone Sodium Succinate (SoluMEDROL INJ) 40 mg BID IV PUSH Last administered on 01/13/17 07:49; Start 01/11/17 at 21:00 Urinary Catheter: No Vascular Central Line Catheter: No A/P Problem List: (1) Acute respiratory failure ICD Code: J96.00 - Acute respiratory failure Status: Acute (2) Hypocalcemia ICD Code: E83.51 - Hypocalcemia (3) COPD with acute exacerbation ICD Code: J44.1 - Acute exacerbation of chronic obstructive airways disease Status: Acute (4) Hyponatremia ICD Code: E87.1 - Hyponatremia Status: Acute (5) Acute kidney injury ICD Code: N17.9 - Acute kidney failure, unspecified Status: Acute (6) DM (diabetes mellitus) ICD Code: E11.9 - Type 2 diabetes mellitus without complications Status: Chronic (7) Urinary retention ICD Code: R33.9 - Retention of urine, unspecified Status: Resolved (8) 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 - Drug or chemical induced diabetes mellitus without complications; T38.0X5A - Adverse effect of glucocorticoids and synthetic analogues, initial encounter Status: Acute (9) Acute renal failure ICD Code: N17.9 - Acute kidney failure, unspecified Status: Acute Assessment and Plan Assessment and Plan Toxic metabolic Encephalopathy - likely metabolic/CO2 retention, resolved Restless leg syndrome Diabetic neuropathy Awake and alert, avoid sedatives CT brain 12/14 revealed no acute intracranial findings Home gabapentin 300 mg 3 times a day and she was resume gabapentin 01/06 at 100 milligrams 3 times a day Alprazolam 0.5 mg by mouth every 8 hours anxiety Continue tramadol 50 mg as needed for pain management Hypertension History of hypertension History dyslipidemia Pulmonary hypertension likely type III secondary to COPD Continue hydralazine 100 3 times a day, Isordil 10 mg 3 times a day. Nifedipine 40mg every 8 hours, clonidine 0.3 milligram TID. Labetalol 200mg po q8hr. Breakthrough labetalol and hydralazine iv. (Home medications include lisinopril 5 mill grams daily, metoprolol 50 mill grams twice a day, clonidine 0.1 mg 3 times a day, nifedipine 60 mill grams every 12 hours, isosorbide mononitrate 30 mg daily and hydralazine 100 mg 3 times daily.) Echocardiogram 2015 EF 55-60%. No regional wall motion abnormality. LEXIE- 61 mmHg. Mild MR. Echocardiogram 12/14/16 - EF 65-70%. No regional wall motion abnormality. Hyperdynamic state Acute hypoxemic respiratory failure-resolved Severe COPD/O2 dependent, with acute exacerbation HERACLIO/no CPAP at home Probable community-acquired pneumonia s/p Trach 12/26. Tolerating trach collar with 40% FIO2. With #6 Shiley. decannulation per Pulm Albuterol/ipratropium aerosols every 6 hours with albuterol for breakthrough every 2 hours when necessary Prednisone 10mg daily/home dose medication Umeclidinium/Vilanterol 62.5 micrograms/25 micrograms one inhalation daily has been resumed and budesonide/formoterol 160/4.5 2 puffs every [address] Noble Clinically she has been improving. Will wean off with Solu-Medrol and continue with DuoNeb's. Elevated transaminases- resolved s/p PEG tube placement 12/27 Currently on oral diet/Nepro 40 cc previous tube feed dosage Docusate sodium 100 mg twice a day for bowel regimen. Avoid hepatotoxic medications. Evaluated by GI 01/08 for possible GI bleed. Negative workup today. He will be stable. No plans for intervention at the present time. Diabetes mellitus with neuropathy Hyperglycemia SSI with accuchecks Novulin R every 6/low regimen Acute kidney injury in the setting of Chronic kidney disease stage 4 - AIN versus medication requiring [employer] Monitor renal function, I/O's, avoid nephrotoxins. Creatinine stabilized around 2 Renal-Dr[address] Blackmon. Reginecath d/c 01/01 per renal. Renal ultrasound 12/14 indicative of medical renal disease with atrophied right kidney Continue Ca carbonate 500 mg every 12 hours. Calcitrol 0.25 mcg daily continue per nephrology. MONITOR RENAL FUNCTIONS AM LABS Normocytic anemia Monitor CBC No indication for transfusion of blood product at this time Probable community-acquired pneumonia UTI Urine cx 12/27 & 01/02: C. Albicans. Tinea cruris Fluconazole 100mg daily discontinue 01/05. s/p full course of abx(piperacillin/tazobactam and levofloxacin). UA negative/, sputum neg to date. Blood cultures 12/14 and 12/15 negative to date. Negative urine pneumococcal and Legionella antigens Monitor for signs of infections ( Fever, WBC) Noted last UA with positive Chaya. on nystatin powder twice a day for tinea nazia Prophylaxis - GI -pantoprazole - DVT - SCD/heparin subcutaneous Problem Qualifiers (1) Acute respiratory failure: Qualified Codes: J96.01 - Acute respiratory failure with hypoxia; J96.02 - Acute respiratory failure with hypercapnia (2) DM (diabetes mellitus): Qualified Codes: E13.9 - Other specified diabetes mellitus without complications (3) Acute renal failure: Qualified Codes: N17.9 - Acute kidney failure, unspecified Sander Lee DO Jan 13, 2017 10:18
[2017-01-13 10:22] LABS: ALKALINE PHOSPHATASE 87 U/L (45-117); ALT (GPT) 19 U/L (10-53); ANION GAP 11 MEQ/L (5-15); BICARBONATE 22.5 MEQ/L (21.0-32.0); BLOOD UREA NITROGEN 52 MG/DL (7-18); CHLORIDE 96 MEQ/L (98-107); GLOMERULAR FILTRATION RATE 21 ML/MIN (>89); SODIUM (NA) 129 MEQ/L (136-145); TOTAL BILIRUBIN ADULT 0.4 MG/DL (0.2-1.0)
[2017-01-13 10:28] LABS: AST (GOT) 18 U/L (15-37); POTASSIUM 5.2 MEQ/L (3.5-5.1)
--- NOTE | 2017-01-13 13:20 | HHI.NPPN ---
Subjective Renal Failure: Chronic, Acute, Stage III Additional Remarks No acute complaints Review of Systems General Constitutional: Fatigue General Remarks generalized pain Respiratory Lungs: SOB, Cough, Wheeze Objective Data Data Vital Signs Date Time Temp Pulse Resp B/P (MAP) Pulse Ox O2 Delivery O2 Flow Rate FiO2 01/13/17 13:10 98.1 79 18 133/73 (93) 97 01/13/17 09:36 90 Trach Collar 6.00 35 01/13/17 08:22 99.0 75 18 119/70 (86) 91 01/13/17 05:32 97.6 75 20 139/67 (91) 94 01/13/17 00:45 97.8 88 20 130/60 (83) 98 01/13/17 00:10 99 Trach Collar 6.00 35 01/12/17 20:35 97.6 76 20 133/74 (93) 94 01/12/17 19:42 95 Trach Collar 6.00 35 01/12/17 17:20 98.4 90 20 127/60 (82) 100 -: 01/13/17 0916 01/13/17 0916 Tubes & Lines: Raphael Tubes & Lines Comment PEG Physical Exam General Appearance: Well Developed, No Acute Distress, Comfortable, Obese Eyes Eye Exam: Pupils Equal Throat Throat Exam: Oral Mucosa [place] & Moist Neck Neck Exam: Neck Supple Pulmonary Resp Exam: Clear Bilaterally, Breath Sounds Equal, No Distress, Diminished Breath Sounds Cardiology CV Exam: Regular, Normal Sinus Rhythm Gastrointestinal/Abdomen GI Exam: Soft, Non-Tender, Bowel Sounds Present Musculoskeletal MS Exam: Joints Intact, Normal Tone, Unable to Ambulate Integumentary Skin Exam: Clear, Warm, Dry Extremeties Extremities Exam: No Edema, Pedal Pulses Palpable Neurologic Neuro Exam: Alert, Awake, Oriented, Speech Clear, Moving All Extremities Psychiatric Psych Exam: Appropriate Responses VTE Prophylaxis Device: SCDs Assessment/Plan Discussed Condition With: Patient Assessment Summary: KAILEE/Acute Renal Failure, Acute Tubular Necrosis, Anemia of CKD, Fluid/Volume Overload, Hypertension, Diabetes Mellitus Problem List: (1) Acute renal failure ICD Codes: N17.9 - Acute kidney failure, unspecified Status: Acute Plan: 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 Renal function had returned to baseline, has varied. Creatinine 2.1 -> 2.3 today s/p raphael removal, no retention she is non oliguric Avoid nephrotoxic agents. Minimize non essential medications. Check AM labs. (2) HCAP (healthcare-associated pneumonia) ICD Codes: J18.9 - Healthcare-associated pneumonia Status: Acute Plan: Off solumedrol, on oral prednisone. She is also off antibiotics. Monitor clinically (3) Acute respiratory failure ICD Codes: J96.00 - Acute respiratory failure Status: Acute Plan: . S/p tracheostomy 12/26 she is off the vent; has T collar, follow with pulmonary improving, monitor will need rehab after discharge (4) DM (diabetes mellitus) ICD Codes: E11.9 - Type 2 diabetes mellitus without complications Status: Chronic Plan: continue insulin therapy goal 140-180 mg/dL (5) Hypocalcemia ICD Codes: E83.51 - Hypocalcemia Plan: PTH is high due to secondary hyperparathyroidism On Calcitriol and Vitamin D3. Hypocalcemia has corrected Calcium level stable, repeat Vitamin D levels ordered. On calcium carbonate, calcitriol, cholecalciferol. (6) Anemia ICD Codes: D64.9 - Anemia, unspecified Status: Chronic Plan: GI still following; no further dark stools Hb stable monitor Problem Qualifiers (1) Acute renal failure: Qualified Codes: N17.9 - Acute kidney failure, unspecified (2) Acute respiratory failure: Qualified Codes: J96.01 - Acute respiratory failure with hypoxia; J96.02 - Acute respiratory failure with hypercapnia (3) DM (diabetes mellitus): Qualified Codes: E13.9 - Other specified diabetes mellitus without complications Alber Castaneda MD Jan 13, 2017 13:20
--- NOTE | 2017-01-13 18:52 | HHI.PR ---
Subjective Remarks Awake and on a trach collar at 35 % FIo2 . She has a PM valve and is talking. CXR shows mild vascular congestion Objective Vital Signs Date Time Temp Pulse Resp B/P (MAP) Pulse Ox O2 Delivery O2 Flow Rate FiO2 01/13/17 16:35 98.4 74 20 67/ 96 01/13/17 13:10 98.1 79 18 133/73 (93) 97 01/13/17 10:00 Aerosol Mask 6.00 35 01/13/17 09:36 90 Trach Collar 6.00 35 01/13/17 08:22 99.0 75 18 119/70 (86) 91 01/13/17 05:32 97.6 75 20 139/67 (91) 94 01/13/17 00:45 97.8 88 20 130/60 (83) 98 01/13/17 00:10 99 Trach Collar 6.00 35 01/12/17 20:35 97.6 76 20 133/74 (93) 94 01/12/17 19:42 95 Trach Collar 6.00 35 I/O 01/12/17 01/12/17 01/12/17 01/13/17 01/13/17 01/13/17 07:00 15:00 23:00 07:00 15:00 23:00 Intake Total 1440 ml 360 ml 660 ml Balance 1440 ml 360 ml 660 ml Intake Oral 1440 ml 360 ml 660 ml # Voids 3 3 Result Diagram: 01/13/1791501/13/17915 Objective Remarks PHYSICAL EXAMINATION GENERAL: This is a middle-aged obese white female who is on the vent with a Trach HEENT: Normocephalic. Pupils reactive and equal. Nasal mucosae clear. NECK: Supple. No bruits or thyroid enlargement or lymphadenopathy. Trachea midline. CHEST: Equal movements with occ wheezes and prolonged expirations. HEART: The heart sounds are irregular, S1-S2. No murmur. No S3. ABDOMEN: Soft and slightly distended. Bowel sounds are active. No organomegaly. EXTREMITIES: No edema. Reflexes are 1+. NEUROLOGIC: The patient is alert and has no deficits SKIN: Negative. Assessment and Plan Assessment and Plan IMPRESSION 1. Hypercapnic respiratory failure.Resolved 2. Severe COPD with emphysema. 3. History of diabetes mellitus. 4. Hypertension. 5. History of obstructive sleep apnea. 6. CKD 1V/KAILEE Plan : 1. Continue on T collar at 35 % 2. Cont PM valve daytime 3. PT evaluation 4. Nebs q6h with duoneb 5. BMP in am. 6. Diet as tolerated 7. Rehab Placement Heidi Villareal MD Jan 13, 2017 18:52
[2017-01-14] VITALS (8 sets, daily range): BP systolic 119–164; BP diastolic 64–85; PULSE 75–86; RESP 20; TEMP 98.2–98.8; O2SAT 90–97
[2017-01-14] MEDS: ISOSORBIDE DINITRATE 10 MG TAB PO SCH ×4 (00:02→21:47)
[2017-01-14] MEDS: hydrALAZINE HCL 100 MG TAB PO SCH ×4 (00:02→21:47)
[2017-01-14] MEDS: cloNIDine HCL 0.3 MG TAB PO SCH ×4 (00:02→21:47)
[2017-01-14] MEDS: NIFEdipine 20 MG CAP PO SCH ×4 (00:02→21:47)
[2017-01-14] MEDS: RESP: ALBUTEROL 2.5 MG/IPRATROPIUM 0.5 MG NEB (SCH) NEB ×5 (00:09→20:14)
[2017-01-14] MEDS: CHLORHEXIDINE GLUCONATE 2 % 1 PACK (2 CLOTHS) TOP SCH (04:00)
[2017-01-14] MEDS: RESP: ACETYLCYSTEINE 20% 30 ML NEB NEB SCH ×4 (04:15→20:14)
[2017-01-14] MEDS: LABETALOL HCL 200 MG TAB PO SCH ×3 (04:58→21:47)
[2017-01-14] MEDS: HEPARIN SODIUM - SQ 10,000 UNITS/ML VIAL SQ SCH ×2 (04:58→12:36)
[2017-01-14] MEDS: INSULIN NovoLIN REGULAR SUPPLEMENTAL SCALE SQ SCH ×4 (05:32→22:10)
[2017-01-14] MEDS: CHLORHEXIDINE 0.12% (ORAL KIT) 15 ML CUP MT SCH ×2 (08:00→21:46)
[2017-01-14] MEDS: SODIUM CHLORIDE 0.9% FLUSH 10 ML FLUSH IVF SCH (09:00)
[2017-01-14] MEDS: UMECLIDINIUM 62.5 MCG/VILANTEROL 25 MCG INHALER INH SCH (09:00)
[2017-01-14] MEDS: NYSTATIN 100,000 U/GM PWD 15 GM BTL TOPICAL SCH ×2 (09:00→21:48)
[2017-01-14] MEDS: PANTOPRAZOLE SOD 20 MG DELAYED RELEASE TAB PO SCH (09:25)
[2017-01-14] MEDS: guaiFENesin E.R. 600 MG TAB PO SCH ×2 (09:25→21:47)
[2017-01-14] MEDS: CHOLECALCIFEROL (VIT D3) 1000 UNIT TAB NG SCH (09:25)
[2017-01-14] MEDS: SODIUM CHLORIDE 0.9% FLUSH 10 ML FLUSH IV FLUSH SCH ×2 (09:25→21:47)
[2017-01-14] MEDS: DOCUSATE SODIUM 100 MG/10 ML UDC PO SCH ×2 (09:25→21:47)
[2017-01-14] MEDS: methylPREDNISolone SOD SUCC 40 MG/1 ML VIAL IV PUSH SCH (09:25)
[2017-01-14] MEDS: GABAPENTIN 100 MG CAP PO SCH ×3 (09:25→17:12)
[2017-01-14] MEDS: ALPRAZolam 0.5 MG TAB PO PRN ×2 (09:37→17:13)
[2017-01-14] MEDS: BUDESONIDE-FORMOTEROL 160/4.5 MCG INHALER INH SCH ×2 (09:41→21:48)
[2017-01-14 10:38] LABS: AUTOMATED NEUTROPHIL # 4.7 TH/MM3 (1.8-7.7); BASOPHIL % 0.1 % (0.0-2.0); HEMATOCRIT 29.2 % (35.0-46.0); HEMO FLAGS DIFF FINAL; LYMPH % 9.7 % (9.0-44.0); LYMPHOCYTE # 0.5 TH/MM3 (1.0-4.8); MEAN CELL VOLUME 89.8 FL (80.0-100.0); MEAN CORPUSCULAR HEMOGLOBIN 30.1 PG (27.0-34.0); MEAN CORPUSCULAR HGB CONC 33.5 % (32.0-36.0); MONO % 7.3 % (0.0-8.0); NEUT % 82.9 % (16.0-70.0); PLATELET COUNT 201 TH/MM3 (150-450); RED BLOOD COUNT 3.26 MIL/MM3 (4.00-5.30); RED CELL DISTRIBUTION WIDTH 15.9 % (11.6-17.2); WHITE BLOOD COUNT 5.6 TH/MM3 (4.0-11.0)
[2017-01-14 11:01] LABS: ANION GAP 11 MEQ/L (5-15); AST (GOT) 9 U/L (15-37); BICARBONATE 23.5 MEQ/L (21.0-32.0); BLOOD UREA NITROGEN 51 MG/DL (7-18); CHLORIDE 98 MEQ/L (98-107); GLOMERULAR FILTRATION RATE 23 ML/MIN (>89); MAGNESIUM 2.2 MG/DL (1.5-2.5); POTASSIUM 4.3 MEQ/L (3.5-5.1); SODIUM (NA) 132 MEQ/L (136-145)
[2017-01-14 11:13] LABS: ALKALINE PHOSPHATASE 87 U/L (45-117); ALT (GPT) 21 U/L (10-53); TOTAL BILIRUBIN ADULT 0.3 MG/DL (0.2-1.0)
--- NOTE | 2017-01-14 11:28 | HHI.NPPN ---
Subjective Renal Failure: Chronic, Acute, Stage III Interval History She has thick sputum in the mornings. Renal function improved overnight. (Tootie Grant) Review of Systems General Constitutional: Fatigue General Remarks generalized pain (Tootie Grant) Respiratory Lungs: SOB, Cough, Wheeze (Tootie Grant) Objective Data Data Vital Signs Date Time Temp Pulse Resp B/P (MAP) Pulse Ox O2 Delivery O2 Flow Rate FiO2 01/14/17 09:03 97 Trach Collar 35 01/14/17 08:33 98.5 79 20 146/73 (97) 90 01/14/17 05:00 98.5 86 20 164/85 (111) 94 01/14/17 00:17 97 Trach Collar 6.00 35 01/14/17 00:00 98.8 80 20 151/76 (101) 94 01/13/17 20:00 98.0 78 20 128/66 (86) 94 01/13/17 16:35 98.4 74 20 67/ 96 01/13/17 13:10 98.1 79 18 133/73 (93) 97 (Tootie Grant) -: 01/14/17 0911 01/14/17 0911 Tubes & Lines: Raphael Tubes & Lines Comment PEG (Tootie Grant) Physical Exam General Appearance: Well Developed, No Acute Distress, Comfortable, Obese (Tootie Grant) Eyes Eye Exam: Pupils Equal (Tootie Grant) Throat Throat Exam: Oral Mucosa [place] & Moist Throat Remarks trach (Tootie Grant) Neck Neck Exam: Neck Supple (Tootie Grant) Pulmonary Resp Exam: Clear Bilaterally, Breath Sounds Equal, No Distress, Diminished Breath Sounds (Tootie Grant) Cardiology CV Exam: Regular, Normal Sinus Rhythm (Tootie Grant) Gastrointestinal/Abdomen GI Exam: Soft, Non-Tender, Bowel Sounds Present GI Remarks + PEG (Tootie Grant) Musculoskeletal MS Exam: Joints Intact, Normal Tone, Unable to Ambulate (Tootie Grant) Integumentary Skin Exam: Clear, Warm, Dry (Tootie Grant) Extremeties Extremities Exam: No Edema, Pedal Pulses Palpable (Tootie Grant) Neurologic Neuro Exam: Alert, Awake, Oriented, Speech Clear, Moving All Extremities (Tootie Grant) Psychiatric Psych Exam: Appropriate Responses (Tootie Grant) VTE Prophylaxis Device: SCDs (Tootie Grant) Assessment/Plan Discussed Condition With: Patient Assessment Summary: KAILEE/Acute Renal Failure, Acute Tubular Necrosis, Anemia of CKD, Fluid/Volume Overload, Hypertension, Diabetes Mellitus Problem List: (1) Acute renal failure ICD Codes: N17.9 - Acute kidney failure, unspecified Status: Acute Plan: 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 Renal function had returned to baseline, but has varied. Improved today PO fluids encouraged s/p raphael removal, she is non oliguric Avoid nephrotoxic agents. Minimize non essential medications. (2) HCAP (healthcare-associated pneumonia) ICD Codes: J18.9 - Healthcare-associated pneumonia Status: Acute Plan: On solumedrol, off oral prednisone. She is also off antibiotics. Monitor clinically She is on Mucomyst, Pulmicort, and nebulizers (3) Acute respiratory failure ICD Codes: J96.00 - Acute respiratory failure Status: Acute Plan: . S/p tracheostomy 12/26 she is off the vent; has T collar, follow with pulmonary improving, monitor will need rehab after discharge (4) DM (diabetes mellitus) ICD Codes: E11.9 - Type 2 diabetes mellitus without complications Status: Chronic Plan: continue insulin therapy goal 140-180 mg/dL (5) Hypocalcemia ICD Codes: E83.51 - Hypocalcemia Plan: PTH was elevated, now appropriately low. Hypocalcemia has corrected Stop calcium carbonate and calcitriol Continue cholecalciferol. (6) Anemia ICD Codes: D64.9 - Anemia, unspecified Status: Chronic Plan: GI still following; no further dark stools Hb stable monitor (Tootie Grant) Plan patient was seen and examined. Agree with above assessment and plan. Renal function is stable. (Thomas Blackmon MD) Problem Qualifiers (1) Acute renal failure: Qualified Codes: N17.9 - Acute kidney failure, unspecified (2) Acute respiratory failure: Qualified Codes: J96.01 - Acute respiratory failure with hypoxia; J96.02 - Acute respiratory failure with hypercapnia (3) DM (diabetes mellitus): Qualified Codes: E13.9 - Other specified diabetes mellitus without complications Tootie Grant Jan 14, 2017 11:28 Thomas Blackmon MD Jan 14, 2017 21:27
--- NOTE | 2017-01-14 12:01 | HHI.PR ---
Subjective Remarks Follow up COPD, diabetes. Patient states that she had more dyspnea overnight. She denies chest pain. States that she feels "gassy". Objective Vitals Vital Signs Date Time Temp Pulse Resp B/P (MAP) Pulse Ox O2 Delivery O2 Flow Rate FiO2 01/14/17 09:03 97 Trach Collar 35 01/14/17 08:33 98.5 79 20 146/73 (97) 90 01/14/17 05:00 98.5 86 20 164/85 (111) 94 01/14/17 00:17 97 Trach Collar 6.00 35 01/14/17 00:00 98.8 80 20 151/76 (101) 94 01/13/17 20:00 98.0 78 20 128/66 (86) 94 01/13/17 16:35 98.4 74 20 67/ 96 01/13/17 13:10 98.1 79 18 133/73 (93) 97 I/O 01/13/17 01/13/17 01/13/17 01/14/17 01/14/17 01/14/17 07:00 15:00 23:00 07:00 15:00 23:00 Intake Total 360 ml 1020 ml Output Total 300 ml Balance 360 ml 1020 ml -300 ml Intake Oral 360 ml 1020 ml Output Urine Total 300 ml # Voids 3 4 5 # Bowel Movements 0 Result Diagram: 01/14/17 0911 01/14/17 0911 Imaging Last Impressions Chest X-Ray 01/09/17 0600 Signed Impressions: Service Date/Time: Monday, January 09, 2017 05:11 - CONCLUSION: 1. Basilar airspace disease similar to January 07. Small effusions. Tracheostomy in good position. Freddie Tubbs MD Abdomen X-Ray 12/26/16 0000 Signed Impressions: Service Date/Time: Monday, December 26, 2016 21:33 - CONCLUSION: Nasogastric tube tip is at the gastric outlet. Nirav Savage MD Liver Ultrasound 12/16/16 0000 Signed Impressions: Service Date/Time: Friday, December 16, 2016 15:25 - CONCLUSION: 1. The liver is prominent with no focal lesion or ascites. 2. The right kidney is small and atrophic in appearance with cortical thinning and no hydronephrosis. There is increased echogenicity most characteristic of medical renal disease. Dylan Bryant MD Renal Ultrasound 12/14/16 0000 Signed Impressions: Service Date/Time: Wednesday, December 14, 2016 18:21 - CONCLUSION: Medical renal disease with echogenic kidneys. There is some atrophy of the right kidney. Nirav Camacho MD Head CT 12/14/16 0000 Signed Impressions: Service Date/Time: Wednesday, December 14, 2016 17:38 - CONCLUSION: Negative for an acute process. Sander Resendiz MD FACR Objective Remarks General: No acute distress. Tracheostomy. Heart: Regular rate and rhythm. No murmur. Lungs: Coarse breath sounds bilaterally. Breathing is somewhat labored with activity, talking. Abdomen: Soft, mild tenderness to palpation diffusely without rebound or guarding, nondistended. Extremities: No lower extremity edema. Psych: Alert and oriented. Procedures SP TRACHEOSTOMY - SP PEG - SP VDRF Urinary Catheter: No Vascular Central Line Catheter: No A/P Problem List: (1) Acute respiratory failure ICD Code: J96.00 - Acute respiratory failure Status: Acute (2) Hypocalcemia ICD Code: E83.51 - Hypocalcemia (3) COPD with acute exacerbation ICD Code: J44.1 - Acute exacerbation of chronic obstructive airways disease Status: Acute (4) Hyponatremia ICD Code: E87.1 - Hyponatremia Status: Acute (5) Acute kidney injury ICD Code: N17.9 - Acute kidney failure, unspecified Status: Acute (6) DM (diabetes mellitus) ICD Code: E11.9 - Type 2 diabetes mellitus without complications Status: Chronic (7) Urinary retention ICD Code: R33.9 - Retention of urine, unspecified Status: Resolved (8) 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 Severe COPD with exacerbation, chronic respiratory failure with acute exacerbation: Tracheostomy done 12/26/16. Tolerating trach collar. Management of trach per pulmonology. New bronchodilators, supplemental oxygen. Change from IV steroids to oral prednisone. 2. Toxic metabolic encephalopathy: Likely secondary to CO2 retention. Resolved. 3. Hypertension: Continue hydralazine, Isordil, nifedipine, clonidine, labetalol. 4. Hyperlipidemia: Statin held secondary to elevated LFTs. 5. Pulmonary hypertension: Appreciate pulmonology recommendations. 6. Elevated transaminases: Resolved. 7. Diabetes mellitus with neuropathy: Monitor Accu-Cheks and cover with sliding scale insulin. 8. Acute kidney injury superimposed on chronic kidney disease stage IV: Appreciate nephrology recommendations. Patient's baseline creatinine is approximately 1.8. 9. Normocytic anemia: Monitor CBC. H&H trending up. 10. Pneumonia, probably community-acquired: Continue antibiotics. Appreciate infectious disease recommendations. 11. UTI: Urine culture growing Chaya. Completed course of fluconazole. 12. Tinea cruris: Nystatin powder. 13. GI prophylaxis: Protonix. 14. DVT prophylaxis: SCDs, heparin. Problem Qualifiers (1) Acute respiratory failure: Qualified Codes: J96.01 - Acute respiratory failure with hypoxia; J96.02 - Acute respiratory failure with hypercapnia (2) DM (diabetes mellitus): Qualified Codes: E13.9 - Other specified diabetes mellitus without complications (3) Acute renal failure: Qualified Codes: N17.9 - Acute kidney failure, unspecified Rich Gutierrez MD Jan 14, 2017 12:01
[2017-01-14 19:29] LABS: HEMOGLOBIN A1a 1.7 %; HEMOGLOBIN A1b 1.7 %; HEMOGLOBIN Ao 82.8 %; HEMOGLOBIN LA1C 2.5 %; HEMOGLOBIN P3 6.5 %
[2017-01-14] MEDS: predniSONE 20 MG TAB PO SCH (21:47)
[2017-01-15] VITALS (8 sets, daily range): BP systolic 122–145; BP diastolic 61–72; PULSE 66–80; RESP 16–20; TEMP 97.4–99.3; O2SAT 90–96
[2017-01-15] MEDS: traMADol HCL 50 MG TAB PO PRN (00:17)
[2017-01-15] MEDS: ALPRAZolam 0.5 MG TAB PO PRN (00:17)
[2017-01-15] MEDS: ONDANSETRON HCL 4 MG/2 ML VIAL IV PRN ×2 (02:54→23:53)
[2017-01-15] MEDS: HEPARIN SODIUM - SQ 10,000 UNITS/ML VIAL SQ SCH ×2 (03:00→13:23)
[2017-01-15] MEDS: INSULIN NovoLIN REGULAR SUPPLEMENTAL SCALE SQ SCH ×4 (03:20→21:00)
[2017-01-15] MEDS: RESP: ACETYLCYSTEINE 20% 30 ML NEB NEB SCH ×4 (03:23→21:17)
[2017-01-15] MEDS: RESP: ALBUTEROL 2.5 MG/IPRATROPIUM 0.5 MG NEB (SCH) NEB ×4 (03:23→21:16)
[2017-01-15] MEDS: CHLORHEXIDINE GLUCONATE 2 % 1 PACK (2 CLOTHS) TOP SCH (04:00)
[2017-01-15] MEDS: LABETALOL HCL 200 MG TAB PO SCH ×3 (04:00→23:06)
[2017-01-15] MEDS: ISOSORBIDE DINITRATE 10 MG TAB PO SCH ×3 (06:00→23:05)
[2017-01-15] MEDS ORDERED: PROMETHAZINE INJ 25 MG/ML VIAL IM ONE (06:00)
[2017-01-15] MEDS: cloNIDine HCL 0.3 MG TAB PO SCH ×3 (06:00→23:06)
[2017-01-15] MEDS: NIFEdipine 20 MG CAP PO SCH ×3 (06:00→23:05)
[2017-01-15] MEDS: hydrALAZINE HCL 100 MG TAB PO SCH ×3 (06:00→23:05)
[2017-01-15] MEDS: SODIUM CHLORIDE 0.9% FLUSH 10 ML FLUSH IVF SCH (07:19)
[2017-01-15] MEDS: CHLORHEXIDINE 0.12% (ORAL KIT) 15 ML CUP MT SCH ×2 (07:19→23:09)
[2017-01-15] MEDS: GABAPENTIN 100 MG CAP PO SCH ×3 (07:20→16:30)
[2017-01-15] MEDS: PANTOPRAZOLE SOD 20 MG DELAYED RELEASE TAB PO SCH (07:20)
[2017-01-15] MEDS: predniSONE 20 MG TAB PO SCH (07:20)
[2017-01-15] MEDS: guaiFENesin E.R. 600 MG TAB PO SCH ×2 (07:20→23:06)
[2017-01-15] MEDS: DOCUSATE SODIUM 100 MG/10 ML UDC PO SCH ×2 (07:20→23:06)
[2017-01-15] MEDS: CHOLECALCIFEROL (VIT D3) 1000 UNIT TAB NG SCH (07:20)
[2017-01-15] MEDS: BUDESONIDE-FORMOTEROL 160/4.5 MCG INHALER INH SCH ×2 (07:44→23:09)
[2017-01-15] MEDS: UMECLIDINIUM 62.5 MCG/VILANTEROL 25 MCG INHALER INH SCH (07:45)
[2017-01-15] MEDS: NYSTATIN 100,000 U/GM PWD 15 GM BTL TOPICAL SCH ×2 (07:46→23:57)
[2017-01-15] MEDS: SODIUM CHLORIDE 0.9% FLUSH 10 ML FLUSH IV FLUSH SCH ×2 (07:46→23:08)
[2017-01-15 08:46] LABS: AUTOMATED NEUTROPHIL # 4.1 TH/MM3 (1.8-7.7); BASOPHIL % 0.1 % (0.0-2.0); EOSINOPHIL % 0.5 % (0.0-4.0); HEMATOCRIT 28.8 % (35.0-46.0); HEMO FLAGS DIFF FINAL; LYMPH % 10.5 % (9.0-44.0); LYMPHOCYTE # 0.5 TH/MM3 (1.0-4.8); MEAN CELL VOLUME 88.8 FL (80.0-100.0); MEAN CORPUSCULAR HEMOGLOBIN 29.5 PG (27.0-34.0); MEAN CORPUSCULAR HGB CONC 33.3 % (32.0-36.0); MONO % 8.3 % (0.0-8.0); NEUT % 80.6 % (16.0-70.0); PLATELET COUNT 188 TH/MM3 (150-450); RED BLOOD COUNT 3.24 MIL/MM3 (4.00-5.30); RED CELL DISTRIBUTION WIDTH 15.8 % (11.6-17.2)
--- NOTE | 2017-01-15 08:46 | RADRPT ---
EXAM DATE/TIME: 01/15/2017 07:48 [facility] COMPARISON: No previous studies available for comparison. INDICATIONS : Abdominal distention and vomiting. MEDICAL HISTORY : Hypertension. Osteoporosis. Renal calculi. Pneumonia. Myocardial infarction. Chronic obstructive pulm onary disease. Renal insufficiency, chronic.Hypercholesterolemia. Rheumatoid arthritis. Diabetes. Res tless leg syndrome. SURGICAL HISTORY : Hysterectomy. Tonsillectomy. Fusion, lumbar. Bilateral knee replacement ENCOUNTER: Subsequent ACUITY: 1 month PAIN SCORE: 8/10 LOCATION: Bilateral Abdomen. FINDINGS: Supine view of the abdomen was performed. The abdominal bowel gas pattern is normal. No abnormal ma sses, calcifications, or organomegaly is seen. The osseous structures are unremarkable. CONCLUSION: 1. No evidence of obstruction. Gustabo Dotson MD on January 15, 2017 at 8:44 Board Certified Radiologist. This report was verified electronically.
[2017-01-15 09:09] LABS: BICARBONATE 27.2 MEQ/L (21.0-32.0); POTASSIUM 3.8 MEQ/L (3.5-5.1)
--- NOTE | 2017-01-15 09:21 | HHI.PR ---
Subjective Remarks [facility] called. Patient developed abdominal pain and vomiting. Increased oxygen requirement. PEG tube placed to suction. Abdominal x-ray showed no evidence of obstruction. Upon my arrival to bedside, patient states that she feels a little better. Breathing has improved somewhat. Still with abdominal pain, nausea. Objective Vitals Vital Signs Date Time Temp Pulse Resp B/P (MAP) Pulse Ox O2 Delivery O2 Flow Rate FiO2 01/15/17 08:54 97.8 72 18 145/72 (96) 92 01/15/17 06:26 97.4 66 20 130/69 (89) 93 01/14/17 20:17 97 Trach Collar 6.00 35 01/14/17 15:58 98.2 75 20 119/64 (82) 96 01/14/17 12:25 98.6 80 20 147/80 (102) 96 I/O 01/14/17 01/14/17 01/14/17 01/15/17 01/15/17 01/15/17 07:00 15:00 23:00 07:00 15:00 23:00 Intake Total 720 ml 120 ml Output Total 300 ml 950 ml Balance -300 ml 720 ml -830 ml Intake Oral 720 ml 120 ml Output Urine Total 300 ml 350 ml Emesis 600 ml # Voids 5 3 7 # Bowel Movements 0 Result Diagram: 01/15/17 0821 01/15/17 0821 Imaging Last Impressions Chest X-Ray 01/09/17 0600 Signed Impressions: Service Date/Time: Monday, January 09, 2017 05:11 - CONCLUSION: 1. Basilar airspace disease similar to January 07. Small effusions. Tracheostomy in good position. Freddie Tubbs MD Abdomen X-Ray 12/26/16 0000 Signed Impressions: Service Date/Time: Monday, December 26, 2016 21:33 - CONCLUSION: Nasogastric tube tip is at the gastric outlet. Nirav Savage MD Liver Ultrasound 12/16/16 0000 Signed Impressions: Service Date/Time: Friday, December 16, 2016 15:25 - CONCLUSION: 1. The liver is prominent with no focal lesion or ascites. 2. The right kidney is small and atrophic in appearance with cortical thinning and no hydronephrosis. There is increased echogenicity most characteristic of medical renal disease. Dylan Bryant MD Renal Ultrasound 12/14/16 0000 Signed Impressions: Service Date/Time: Wednesday, December 14, 2016 18:21 - CONCLUSION: Medical renal disease with echogenic kidneys. There is some atrophy of the right kidney. Nirav Camacho MD Head CT 12/14/16 0000 Signed Impressions: Service Date/Time: Wednesday, December 14, 2016 17:38 - CONCLUSION: Negative for an acute process. Sander Resendiz MD FACR Objective Remarks General: No acute distress. Tracheostomy. Heart: Regular rate and rhythm. No murmur. Lungs: Coarse breath sounds bilaterally. Breathing is nonlabored. Abdomen: Soft, diffusely tender to palpation without rebound/guarding, nondistended. Decreased bowel sounds. Extremities: No lower extremity edema. Psych: Alert and oriented. Procedures SP TRACHEOSTOMY 12-26 SP PEG 12-27 SP VDRF Urinary Catheter: No Vascular Central Line Catheter: No A/P Problem List: (1) Acute respiratory failure ICD Code: J96.00 - Acute respiratory failure Status: Acute (2) Hypocalcemia ICD Code: E83.51 - Hypocalcemia (3) COPD with acute exacerbation ICD Code: J44.1 - Acute exacerbation of chronic obstructive airways disease Status: Acute (4) Hyponatremia ICD Code: E87.1 - Hyponatremia Status: Acute (5) Acute kidney injury ICD Code: N17.9 - Acute kidney failure, unspecified Status: Acute (6) DM (diabetes mellitus) ICD Code: E11.9 - Type 2 diabetes mellitus without complications Status: Chronic (7) Urinary retention ICD Code: R33.9 - Retention of urine, unspecified Status: Resolved (8) 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 Severe COPD with exacerbation, chronic respiratory failure with acute exacerbation: Tracheostomy done 12/26/16. Tolerating trach collar. Management of trach per pulmonology. New bronchodilators, supplemental oxygen. Unable to take medications PO, so will switch back to IV steroids. 2. Toxic metabolic encephalopathy: Likely secondary to CO2 retention. Resolved. 3. Hypertension: Continue hydralazine, Isordil, nifedipine, clonidine, labetalol. 4. Hyperlipidemia: Statin held secondary to elevated LFTs. 5. Pulmonary hypertension: Appreciate pulmonology recommendations. 6. Elevated transaminases: Resolved. 7. Diabetes mellitus with neuropathy: Monitor Accu-Cheks and cover with sliding scale insulin. 8. Acute kidney injury superimposed on chronic kidney disease stage IV: Appreciate nephrology recommendations. Patient's baseline creatinine is approximately 1.8. 9. Normocytic anemia: Monitor CBC. H&H stable. 10. Pneumonia, probably community-acquired: Continue antibiotics. Appreciate infectious disease recommendations. 11. UTI: Urine culture growing Chaya. Completed course of fluconazole. 12. Tinea cruris: Nystatin powder. 13. GI prophylaxis: Protonix. 14. DVT prophylaxis: SCDs, heparin. 15. Abdominal pain, nausea/vomiting: Uncertain etiology. X-ray of abdomen shows no obstruction. Re-consult GI. PEG tube to suction. Discussed with JAILENE Muniz. Problem Qualifiers (1) Acute respiratory failure: Qualified Codes: J96.01 - Acute respiratory failure with hypoxia; J96.02 - Acute respiratory failure with hypercapnia (2) DM (diabetes mellitus): Qualified Codes: E13.9 - Other specified diabetes mellitus without complications (3) Acute renal failure: Qualified Codes: N17.9 - Acute kidney failure, unspecified Rich Gutierrez MD Jan 15, 2017 09:21
--- NOTE | 2017-01-15 09:29 | RADRPT ---
EXAM DATE/TIME: 01/15/2017 08:56 [facility] COMPARISON: CHEST SINGLE AP, January 09, 2017, 5:11. INDICATIONS : Dyspnea. MEDICAL HISTORY : Hypertension. Osteoporosis. Renal calculi. Pneumonia. chronic.Hypercholesterolemia. Rheumatoid arthri tis. Diabetes. Chronic obstructive pulmonary disease. Renal insufficiency. Myocardial infarction. SURGICAL HISTORY : Hysterectomy. Tonsillectomy. Fusion, lumbar. Bilateral knee replacement ENCOUNTER: Subsequent ACUITY: 1 month PAIN SCORE: 0/10 LOCATION: Bilateral chest FINDINGS: Stable tracheostomy. Improved aeration in the right lower lung zone. Continued pleural-parenchymal di sease in the left lower lung zone. Cardiomediastinal contours are stable given differences in techniq ue. Made of the exam is unchanged. CONCLUSION: 1. Improved right lower lung zone aeration. 2. Stable pleural-parenchymal disease in the left lower lung zone. Dereck Bang MD on January 15, 2017 at 9:26 Board Certified Radiologist. This report was verified electronically.
[2017-01-15] MEDS: methylPREDNISolone SOD SUCC 40 MG/1 ML VIAL IV PUSH SCH ×2 (09:44→23:07)
--- NOTE | 2017-01-15 10:27 | HHI.GIFU ---
Subjective Remarks Reconsulted for nausea, vomiting, worsening abdominal distention/pain. Pt reports that her symptoms began last night- diffuse abdominal discomfort, multiple episodes of n/v. States no bm x 4 days. No rectal bleeding. (Callie Sims) Objective Vitals I&O Vital Signs Date Time Temp Pulse Resp B/P (MAP) Pulse Ox O2 Delivery O2 Flow Rate FiO2 01/15/17 09:18 92 Trach Collar 6.00 40 01/15/17 09:00 96 Trach Collar 8.00 40 01/15/17 08:54 97.8 72 18 145/72 (96) 92 01/15/17 06:26 97.4 66 20 130/69 (89) 93 01/14/17 20:17 97 Trach Collar 6.00 35 01/14/17 15:58 98.2 75 20 119/64 (82) 96 01/14/17 12:25 98.6 80 20 147/80 (102) 96 I/O 01/14/17 01/14/17 01/14/17 01/15/17 01/15/17 01/15/17 07:00 15:00 23:00 07:00 15:00 23:00 Intake Total 720 ml 120 ml Output Total 300 ml 950 ml Balance -300 ml 720 ml -830 ml Intake Oral 720 ml 120 ml Output Urine Total 300 ml 350 ml Emesis 600 ml # Voids 5 3 7 # Bowel Movements 0 Laboratory Laboratory Tests Test 01/15/17 08:21 White Blood Count 5.0 Red Blood Count 3.24 Hemoglobin 9.6 Hematocrit 28.8 Mean Corpuscular Volume 88.8 Mean Corpuscular Hemoglobin 29.5 Mean Corpuscular Hemoglobin Concent 33.3 Red Cell Distribution Width 15.8 Platelet Count 188 Mean Platelet Volume 6.6 Neutrophils (%) (Auto) 80.6 Lymphocytes (%) (Auto) 10.5 Monocytes (%) (Auto) 8.3 Eosinophils (%) (Auto) 0.5 Basophils (%) (Auto) 0.1 Neutrophils # (Auto) 4.1 Lymphocytes # (Auto) 0.5 Monocytes # (Auto) 0.4 Eosinophils # (Auto) 0.0 Basophils # (Auto) 0.0 CBC Comment DIFF FINAL Differential Comment Blood Urea Nitrogen 60 Creatinine 2.19 Random Glucose 154 Albumin 3.2 Calcium Level 10.4 Phosphorus Level 4.3 Sodium Level 131 Potassium Level 3.8 Chloride Level 93 Carbon Dioxide Level 27.2 Anion Gap 11 Estimat Glomerular Filtration Rate 23 Date/Time Source Procedure Growth Status 12/15/16 05:03 Blood Peripheral Aerobic Blood Culture - Final NO GROWTH IN 5 DAYS Complete 12/15/16 05:03 Blood Peripheral Anaerobic Blood Culture - Final NO GROWTH IN 5 DAYS Complete 12/16/16 10:00 Sputum Endotracheal Gram Stain - Final Complete 12/16/16 10:00 Sputum Endotracheal Sputum Culture - Final LIGHT GROWTH NORMAL RESPIRATORY SLAVA Complete 01/02/17 17:30 Urine Catheterized Urine Urine Culture - Final Chaya Albicans Complete Imaging Last Impressions Chest X-Ray 01/09/17 0600 Signed Impressions: Service Date/Time: Monday, January 09, 2017 05:11 - CONCLUSION: 1. Basilar airspace disease similar to January 07. Small effusions. Tracheostomy in good position. Freddie Tubbs MD Abdomen X-Ray 12/26/16 0000 Signed Impressions: Service Date/Time: Monday, December 26, 2016 21:33 - CONCLUSION: Nasogastric tube tip is at the gastric outlet. Nirav Savage MD Liver Ultrasound 12/16/16 0000 Signed Impressions: Service Date/Time: Friday, December 16, 2016 15:25 - CONCLUSION: 1. The liver is prominent with no focal lesion or ascites. 2. The right kidney is small and atrophic in appearance with cortical thinning and no hydronephrosis. There is increased echogenicity most characteristic of medical renal disease. Dylan Bryant MD Renal Ultrasound 12/14/16 0000 Signed Impressions: Service Date/Time: Wednesday, December 14, 2016 18:21 - CONCLUSION: Medical renal disease with echogenic kidneys. There is some atrophy of the right kidney. Nirav Camacho MD Head CT 12/14/16 0000 Signed Impressions: Service Date/Time: Wednesday, December 14, 2016 17:38 - CONCLUSION: Negative for an acute process. Sander Resendiz MD FACR Physical Exam HEENT: Normocephalic; atraumatic; no jaundice CHEST: Tracheostomy, trach collar. Course breath sounds CARDIAC: RRR ABDOMEN: Semifirm, distended, diffuse tenderness, bowel sounds hypoactive. PEG tube to LIWS with small amount of gastric secretions EXTREMITIES: Generalized edema. 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 Pt reports symptoms began last night with n/v, abdominal distention, diffuse abdominal pain. She reports no bm x 4 days. There is no rectal bleeding. KUB (01/15/17)---> abdominal bowel gas pattern is normal, no evidence of obstruction. Clinically she has diffuse moderate tenderness on exam. Will get CT scan abdomen and pelvis with po contrast only, check lipase. LFTs yesterday were unremarkable. - Constipation. No BM x 4 days per patient. On colace. Had Senokot yesterday , dulcolax suppository today. Will add daily Miralax and make senokot scheduled. - Melanotic/maroon stool. Nurse reports that she had a small melanotic stool with small amount of maroon tint to it on (01/08/17) and 2 small john colored bowel movements on (01/09). I flushed and aspirated clear contents from PEG tube (01/08). Pt reports that she last had colonoscopy 2 years ago and this was normal. EGD at time of PEG tube placement (12/27/16) was unremarkable. She has not had any further episodes of this. HH stable. - Dysphagia, FEN. Pt in ICU, with respiratory failure, severe copd, heraclio, suspected cap, requiring prolonged mechanical ventilation. S/P tracheostomy placement. GI consulted for PEG tube placement. Anesthesiologist Physician recommends Nepro at 40cc/hr and discontinuing the Steve BID. S/P EGD with peg tube placement (12/27/16)-- -> 1. The upper, middle, and distal third of the esophagus were carefully inspected and no abnormalities were noted. The z- line was well seen at the GEJ. The endoscope was pushed into the fundus which was normal including a retroflexed view. The antrum, first and second part of the duodenum were unremarkable. 2. No abnormalities 3.S/p peg placement. TF on hold. - Respiratory failure, COPD, HERACLIO, Suspected CAP. S/P tracheostomy, Tbar - Acute on chronic kidney disease, per renal. - DM, encephalopathy, htn, hyperlipidemia, per attending PLAN: - NPO - PEG to LIWS - CT scan abdomen and pelvis with po contrast only - Lipase level - Add Miralax - Make Senokot scheduled - Monitor HH - Transfuse as necessary - Notify GI of bleeding - Supportive care - Further recommendations to follow based on results of above - Pt seen and examined by Dr. Barber and myself and this note is written on her behalf (Callie Sims) Physician Comments seen, examined agree with above (Swathi Barbre MD) Callie Sims Jan 15, 2017 10:27 Swathi Barber MD Jan 15, 2017 17:39
--- NOTE | 2017-01-15 10:31 | HHI.NPPN ---
Subjective Renal Failure: Chronic, Acute, Stage III Interval History She is reporting constipation, N/V and abdominal pain. Renal function is stable. (Tootie Grant) Review of Systems General Constitutional: Fatigue General Remarks generalized pain (Tootie Grant) Respiratory Lungs: SOB, Cough, Wheeze (Tootie Grant) Objective Data Data Vital Signs Date Time Temp Pulse Resp B/P (MAP) Pulse Ox O2 Delivery O2 Flow Rate FiO2 01/15/17 09:18 92 Trach Collar 6.00 40 01/15/17 09:00 96 Trach Collar 8.00 40 01/15/17 08:54 97.8 72 18 145/72 (96) 92 01/15/17 06:26 97.4 66 20 130/69 (89) 93 01/14/17 20:17 97 Trach Collar 6.00 35 01/14/17 15:58 98.2 75 20 119/64 (82) 96 01/14/17 12:25 98.6 80 20 147/80 (102) 96 (Tootie Grant) -: 01/15/17 0821 01/15/17 0821 Imaging Last 72 hours Impressions Abdomen X-Ray 01/15/17 0000 Signed Impressions: Service Date/Time: Sunday, January 15, 2017 07:48 - CONCLUSION: 1. No evidence of obstruction. Gustabo Dotson MD Tubes & Lines: Raphael Tubes & Lines Comment PEG (Tootie Grant) Physical Exam General Appearance: Well Developed, No Acute Distress, Comfortable, Obese (Tootie Grant) Eyes Eye Exam: Pupils Equal (Tootie Grant) Throat Throat Exam: Oral Mucosa [place] & Moist Throat Remarks trach (Tootie Grant) Neck Neck Exam: Neck Supple (Tootie Grant) Pulmonary Resp Exam: Clear Bilaterally, Breath Sounds Equal, No Distress, Diminished Breath Sounds (Tootie Grant) Cardiology CV Exam: Regular, Normal Sinus Rhythm (Tootie Grant) Gastrointestinal/Abdomen GI Exam: Soft, Non-Tender, Bowel Sounds Present GI Remarks + PEG (Tootie Grant) Musculoskeletal MS Exam: Joints Intact, Normal Tone, Unable to Ambulate (Tootie Grant) Integumentary Skin Exam: Clear, Warm, Dry (Tootie Grant) Extremeties Extremities Exam: No Edema, Pedal Pulses Palpable (Tootie Grant) Neurologic Neuro Exam: Alert, Awake, Oriented, Speech Clear, Moving All Extremities (Tootie Grant) Psychiatric Psych Exam: Appropriate Responses (Tootie Grant) VTE Prophylaxis Device: SCDs (Tootie Grant) Assessment/Plan Discussed Condition With: Patient Assessment Summary: KAILEE/Acute Renal Failure, Acute Tubular Necrosis, Anemia of CKD, Fluid/Volume Overload, Hypertension, Diabetes Mellitus Problem List: (1) Acute renal failure ICD Codes: N17.9 - Acute kidney failure, unspecified Status: Acute Plan: baseline CKD 4 KAILEE due to ATN with HD required from 12/20 to 12/31. Renal function is stable, this may be her new baseline PO fluids encouraged s/p raphael removal, she is non oliguric Avoid nephrotoxic agents. Minimize non essential medications. (2) HCAP (healthcare-associated pneumonia) ICD Codes: J18.9 - Healthcare-associated pneumonia Status: Acute Plan: On solumedrol, off oral prednisone. She is also off antibiotics. Monitor clinically She is on Mucomyst, Pulmicort, and nebulizers (3) Acute respiratory failure ICD Codes: J96.00 - Acute respiratory failure Status: Acute Plan: . S/p tracheostomy 12/26 she is off the vent; has T collar, follow with pulmonary improving, monitor will need rehab after discharge (4) DM (diabetes mellitus) ICD Codes: E11.9 - Type 2 diabetes mellitus without complications Status: Chronic Plan: continue insulin therapy goal 140-180 mg/dL (5) Hypocalcemia ICD Codes: E83.51 - Hypocalcemia Plan: PTH was elevated, now appropriately low. Hypocalcemia has corrected Stop calcium carbonate and calcitriol Continue cholecalciferol. (6) Anemia ICD Codes: D64.9 - Anemia, unspecified Status: Chronic Plan: GI still following; no further dark stools Hb stable monitor (Rudy,Tootie B. RENAL NURSE) Problem List: (1) Acute renal failure ICD Codes: N17.9 - Acute kidney failure, unspecified Status: Acute Plan: baseline CKD 4 KAILEE due to ATN with HD required from 12/20 to 12/31. Renal function is stable, this may be her new baseline PO fluids encouraged s/p raphael removal, she is non oliguric Avoid nephrotoxic agents. Minimize non essential medications. (2) HCAP (healthcare-associated pneumonia) ICD Codes: J18.9 - Healthcare-associated pneumonia Status: Acute Plan: On solumedrol, off oral prednisone. She is also off antibiotics. Monitor clinically She is on Mucomyst, Pulmicort, and nebulizers (3) Acute respiratory failure ICD Codes: J96.00 - Acute respiratory failure Status: Acute Plan: . S/p tracheostomy 12/26 she is off the vent; has T collar, follow with pulmonary improving, monitor will need rehab after discharge (4) DM (diabetes mellitus) ICD Codes: E11.9 - Type 2 diabetes mellitus without complications Status: Chronic Plan: continue insulin therapy goal 140-180 mg/dL (5) Hypocalcemia ICD Codes: E83.51 - Hypocalcemia Plan: PTH was elevated, now appropriately low. Hypocalcemia has corrected Stop calcium carbonate and calcitriol Continue cholecalciferol. (6) Anemia ICD Codes: D64.9 - Anemia, unspecified Status: Chronic Plan: GI still following; no further dark stools Hb stable monitor Plan patient was seen and examined. Renal function is stable. She is on Solumedrol, antibiotics. Prognosis is guarded. (Thomas Blackmon MD) Problem Qualifiers (1) Acute renal failure: Qualified Codes: N17.9 - Acute kidney failure, unspecified (2) Acute respiratory failure: Qualified Codes: J96.01 - Acute respiratory failure with hypoxia; J96.02 - Acute respiratory failure with hypercapnia (3) DM (diabetes mellitus): Qualified Codes: E13.9 - Other specified diabetes mellitus without complications Tootie Grant RENAL NURSE Jan 15, 2017 10:30 Thomas Blackmon MD Jan 15, 2017 20:58
[2017-01-15] MEDS: SENNOSIDES 8.6 MG TAB PO SCH (11:29)
[2017-01-15] MEDS: POLYETHYLENE GLYCOL 17 GM PKG PO SCH (11:29)
[2017-01-15] MEDS ORDERED: DIATRIZOATE MEGLUM/DIATRIZOATE SOD 9 ML CUP PO ONE (13:30)
--- NOTE | 2017-01-15 15:14 | PD.CONS ---
Consult Service Palliative Care . Consult Requested By Dr. Gutierrez . Primary Care Physician Jn Castaneda M.D. . Reason for Consultation a. To assist with evaluation and management of symptoms including: Dyspnea, decreased appetite, pain b. To assist medical decision maker(s) with: better understanding of current medical conditions; weighing benefits/burdens of medical treatment options; making medical treatment decisions. . (Elham Lanza) HPI History of Present Illness Ms. Vigil is a 61-year-old female with a history recurrent pneumonia/ bronchitis, severe COPD (on home oxygen), HERACLIO, CKD (stage III), neuropathy with chronic pain, lumbar spinal stenosis status post lumbar fusion, rheumatoid arthritis, hypertension, hyperlipidemia, diabetes and claustrophobia. The patient presented to [facility] ED on 12/14/2016 for evaluation of dyspnea 3 days. The patient was placed on CPAP, however after 30 minutes she began to become increasingly fatigued and was subsequently intubated. She required 100% FiO2 and was intermittently hypotensive while in the ED. CT head negative. Chest x-ray revealed possible vascular congestion. She is also noted of a calcium of 5.0. Elevated creatinine 5.1 with a baseline 1.9. she received 2 g calcium chloride and she received 20 mg IV Lasix. 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 2-D echocardiogram revealed hyperdynamic state with EF of 65-70%. Urine, blood and sputum cultures negative. 12/20/2016: Patient remains critically ill with multi-organ dysfunction; she is not tolerating sedation vacation secondary to ventilator synchrony. Worsening kidney functioning. BUN/creatinine today 36/4.6. Urine output = 1 L in 24 hours. Plan to start dialysis today after Vas-Cath placement. Status post tracheostomy placement on 12/26/2016 secondary to persistent encephalopathy and inability to tolerate SBT. Follow-up chest x-ray showing bibasilar patchiness consistent with atelectasis and/or pneumonia and cardiomegaly. Normal EGD on 12/27/16 with PEG placement. Urine culture positive for Chaya - pleated course of fluconazole. Patient was able to be weaned off the ventilator in the following days, tolerating Passy-Margaret valve during the day. Evaluated by GI 01/08 for possible GI bleed-negative workup. Patient's oxygen saturation dropped into the 80s this morning, and a HALICAT was called. Patient develop abdominal pain with multiple episodes of nausea and vomiting overnight. She reports no BM 4 days. KUB showed no evidence of obstruction. CT abdomen/pelvis pending. Dr. Gutierrez spoke with the patient who states she does not want to be transferred to the ICU. When asked about her CODE STATUS, she stated that she would want CPR and intubation/ventilation if necessary. She remains a FULL CODE. If her clinical condition continues to deteriorate she will need to be transferred to the intensive care unit. Palliative Care was consulted to assist with symptom management and to discuss with the patient/family the benefits and burdens of his current illnesses and the options regarding future care. . Function/Cognitive Trajectory Per review of notes, patient lives with her daughter. She was independent in activities of daily living and able to ambulate prior to this hospitalization; oxygen dependent at home. Patient endorses she is independent in most activities. She states she uses a walker to assist with ambulation. She denies recent falls. . (Elham Lanza) Review of Systems ROS Limitations: Speech Impaired Constitutional: COMPLAINS OF: Fatigue, Change in appetite, Pain, Generalized weakness Gastrointestinal: COMPLAINS OF: Abdominal pain, Constipation, Nausea, Vomiting Musculoskeletal: COMPLAINS OF: Joint pain Hematologic/Lymphatics: COMPLAINS OF: Bruising Neurologic: COMPLAINS OF: Speech Problems Psychiatric: COMPLAINS OF: Anxiety (Elham Lanza) Past Family Social History Coded Allergies: codeine (Unverified Adverse Reaction, Severe, 11/27/16) *MDRO Multi-Drug Resistant Organism (Verified Adverse Reaction, Unknown, ) MDR E. 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 Vaginal hysterectomy, bilateral salpingo-oophorectomy ORIF left Hip Bilateral knee replacements . Reported Medications Tramadol (Tramadol HCl) 50 Mg Tab 50 Mg PO TID PRN Atorvastatin (Atorvastatin Calcium) 20 Mg Tab 20 Mg PO HS Nifedipine ER 24 HR (Nifedipine) 60 Mg Tab 60 Mg PO BID Isosorbide Mononitrate ER (Isosorbide Mononitrate) 30 Mg Malick 30 Mg PO DAILY Gabapentin 300 Mg Cap 300 Mg PO TID Anoro Ellipta Inh (Umeclidinium/Vilanterol) 62.5-25 Mcg/Act Aero 1 Puff INH DAILY Multi Vitamin (Multiple Vitamin) 1 Tab Tab 1 Tab PO DAILY Vitamin B-12 Cr (Cyanocobalamin) 1,000 Mcg Tab 1,000 Mcg PO DAILY Metoprolol Tartrate 50 Mg Tab 50 Mg PO BID Lisinopril 5 Mg Tab 5 Mg PO DAILY Levemir Inj (Insulin Detemir) 1,000 unit/ 10 ML Vial 10 Units SQ BID Do not mix with any other Insulin. Novolog Inj (Insulin Aspart) 1,000 Unit/10 Ml Vial 0 SQ DIRECTED Sliding Scale as directed. Hydralazine (Hydralazine HCl) 100 Mg Tab 100 Mg PO Q8HR Take with meals Clonidine (Clonidine HCl) 0.1 Mg Tab 0.1 Mg PO Q8HR Caltrate 600+D (Calcium Carbonate-Cholecalciferol) 600-800 Mg-Unit Tab 1 Tab PO DAILY Symbicort Inh (Budesonide/Formoterol Fumarate) 160-4.5 Mcg/Act Aero 2 Puff INH Q12HR Albuterol Neb (Albuterol Sulfate) 2.5 Mg/0.5 Ml Neb 2.5 Mg NEB Q4HR NEB PRN Note: The Albuterol Sulfate Inhalation Solution is concentrated and must be diluted. Read complete instructions carefully before using. Aspirin 81 Mg Tabdr 81 Mg PO DAILY . Current Medications Medications (Trade) Dose Ordered Sig/Mathew Route Start Time Stop Time Status Last Admin (NS Flush) 2 ml UNSCH PRN IV FLUSH 12/14/16 16:00 12/26/16 13:54 (NS Flush) 2 ml BID IV FLUSH 12/14/16 21:00 01/15/17 07:46 (Zofran Inj) 4 mg Q6H PRN IV 12/14/16 16:00 01/15/17 02:54 (Albuterol Neb) 2.5 mg Q2HR NEB PRN INH 12/14/16 16:00 01/11/17 12:33 Miscellaneous Information 1 Q361D XX 12/14/16 16:00 (Chlorhexidine 2% Cloth) Taper DAILY@04 TOP 12/15/16 04:00 12/11/17 03:59 01/12/17 04:00 (Chlorhexidine 2% Cloth) 3 pack UNSCH PRN TOP 12/14/16 16:00 (Milk Of Magnesia Liq) 30 ml Q12H PRN PO 12/14/16 16:00 (Dulcolax Supp) 10 mg DAILY PRN RECTAL 12/14/16 16:00 01/15/17 09:44 (Lactulose Liq) 30 ml DAILY PRN PO 12/14/16 16:00 (Peridex 0.12% Liq) 15 ml BID@08,20 MT 12/14/16 20:00 01/14/17 21:46 (NS Flush) DAILY IVF 12/15/16 09:00 01/10/17 09:43 (NS Flush) UNSCH PRN IVF 12/14/16 16:45 (Apresoline) 100 mg Q8HR PO 12/15/16 14:00 01/15/17 13:22 (Isordil) 10 mg Q8HR PO 12/15/16 14:00 01/15/17 13:22 (Nitroglycerin 2% Oint) 2 inch Q6HR PRN TOPICAL 12/15/16 10:30 12/26/16 13:47 (Catapres) 0.3 mg Q8HR PO 12/17/16 14:00 01/15/17 13:22 (Procardia) 40 mg Q8HR PO 12/18/16 14:00 01/15/17 13:22 (Vitamin D3) 2,000 units DAILY NG 12/18/16 10:30 01/14/17 09:25 Sodium Chloride 1,000 ml @ 0 mls/hr Q0M PRN OTHER 12/20/16 08:05 12/25/16 14:01 (Heparin Inj) 8,000 units UNSCH PRN IVF 12/20/16 08:15 Sodium Chloride 1,000 ml @ 200 mls/hr Q5H PRN IV 12/20/16 08:05 Sodium Chloride 1,000 ml @ 0 mls/hr Q0M PRN OTHER 12/20/16 08:05 (Mannitol Inj) 12.5 gm UNSCH PRN IV 12/20/16 08:15 (Albumin 25% Inj) 25 gm UNSCH PRN IV 12/20/16 08:15 12/27/16 16:51 (NS Flush) 5 ml UNSCH PRN IV FLUSH 12/20/16 08:15 12/25/16 14:01 (Heparin Inj) UNSCH PRN .XX 12/20/16 08:15 12/27/16 16:51 (Gentamicin (Dialysis) Inj) 20 mg UNSCH PRN IV 12/20/16 08:15 12/27/16 16:51 (Zofran Inj) 4 mg UNSCH PRN IV 12/20/16 08:15 (Tylenol) 650 mg UNSCH PRN PO 12/20/16 08:15 01/05/17 14:19 (Benadryl) 25 mg UNSCH PRN PO 12/20/16 08:15 (Nitrostat Sl) 0.4 mg UNSCH PRN SL 12/20/16 08:15 (Gelfoam 12 Mm/7 Mm Top) 1 foam UNSCH PRN TOP 12/20/16 08:15 (Trandate Inj) 20 mg Q15M PRN IV PUSH 12/22/16 13:00 12/23/16 01:55 (Trandate) 200 mg Q8H PO 12/22/16 12:00 01/15/17 11:29 (D50w (Vial) Inj) 50 ml UNSCH PRN IV 12/31/16 09:00 (Glucagon Inj) 1 mg UNSCH PRN OTHER 12/31/16 09:00 (NovoLIN R SUPPLEMENTAL SCALE) 1 Q6H SQ 12/31/16 09:00 01/15/17 03:20 (Xanax) 0.5 mg Q8H PRN PO 01/01/17 14:45 01/15/17 00:17 (Protonix) 20 mg DAILY PO 01/04/17 09:00 01/14/17 09:25 (Colace Liq) 100 mg Q12HR PO 01/03/17 21:00 01/14/17 21:47 (Ultram) 50 mg Q6H PRN PO 01/03/17 15:30 01/15/17 00:17 (Neurontin) 100 mg TID PO 01/06/17 13:00 01/15/17 11:29 (Heparin Inj) 5,000 units Q12H SQ 01/05/17 14:00 01/15/17 13:23 (Mycostatin Powder) 1 applic Q12HR TOPICAL 01/09/17 09:00 01/15/17 07:46 (Symbicort 160-4.5 Inh) 2 puff Q12HR INH 01/09/17 10:00 01/15/17 07:44 (Deltasone) 20 mg BID PO 01/10/17 21:00 Future Hold 01/14/17 21:47 (Mucinex Er) 1,200 mg BID PO 01/11/17 12:30 01/14/17 21:47 (Mucomyst 20% Neb) 2 ml Q6HR NEB NEB 01/14/17 16:00 01/15/17 09:12 (Duoneb Neb) 1 ampule Q6HR NEB NEB 01/14/17 16:00 01/15/17 09:12 (SoluMEDROL INJ) 40 mg Q12HR IV PUSH 01/15/17 10:00 01/15/17 09:44 (Senokot) 17.2 mg DAILY PO 01/15/17 11:00 01/15/17 11:29 (Miralax) 17 gm DAILY PO 01/15/17 11:00 01/15/17 11:29 . Family History Per review of notes, Grandmother had emphysema. . Substance Use Tobacco: Active smoker with 30+ pack-year smoking history. Patient reports she quit smoking 4 days prior to this hospitalization Alcohol: None. Prescription med abuse: None. Illicits: None. . Psychosocial History a few years ago. Has 2 children, Carol (daughter) and Derrick (son). Many grandchildren. She lives with her daughter, LIZA and their children. . Spiritual/Cultural Factors Holiness darryl . (Elham Lanza) Health Care Surrogate: Copy in medical record Date completed: 09/05/2015 . Health Care Surrogate(s): Patient designates her daughter, Carol Vigil, as the healthcare surrogate decision maker. . Documented care wishes: On the designation of health care surrogate form completed 09/05/2015, the patient added additional instructions stating if after 2 weeks of medical treatment there is no improvement she directs that all treatment be stopped at that time. Copy of the document is available in the patient's EMR. . Today's verbally stated goals: In early conversation with her attending physician, and she stated she did not want to be transferred back to the intensive care unit. However, the patient's holes remain aggressive. Patient stating she would want CPR and intubation/ mechanical ventilation if necessary. Palliative care met with the patient at bedside; patient indicating again that she does not want to be transferred to the intensive care unit but would be amenable to transfer medically necessary. . Family/friends goals: No family present at the time of exam. . Ethical and Legal Issues No known ethical issues impacting care at this time. . (Elham Lanza) Physical Exam Vital Signs Date Time Temp Pulse Resp B/P (MAP) Pulse Ox O2 Delivery O2 Flow Rate FiO2 01/15/17 11:19 99.2 80 20 122/64 (83) 90 01/15/17 09:18 92 Trach Collar 6.00 40 01/15/17 09:00 96 Trach Collar 8.00 40 01/15/17 08:54 97.8 72 18 145/72 (96) 92 01/15/17 06:26 97.4 66 20 130/69 (89) 93 01/14/17 20:17 97 Trach Collar 6.00 35 01/14/17 15:58 98.2 75 20 119/64 (82) 96 . Exam CONSTITUTIONAL/GENERAL: This is an adequately nourished, chronically ill appearing female patient in no apparent distress. TUBES/LINES/DRAINS: PIV, tracheostomy, PEG tube SKIN: Skin dry, temperature appropriate. Not diaphoretic. HEAD: Atraumatic. Normocephalic. EYES: Pupils equal and round. . No scleral icterus. No injection or drainage. ENT: Hearing grossly normal. Nose without bleeding or purulent drainage. Poor dentition NECK: Trachea midline. CARDIOVASCULAR: Regular rate and rhythm. No murmur appreciated RESPIRATORY/CHEST: Breath sounds coarse bilaterally; congestive secretions via trach GASTROINTESTINAL: Abdomen diffusely tender to palpation. No guarding. Hypoactive bowel sounds. GENITOURINARY: Without palpable bladder distension. MUSCULOSKELETAL: No obvious deformities. No edema in BLE. LYMPHATICS: No palpable cervical or supraclavicular adenopathy. NEUROLOGICAL: Awake and alert. Responds to questions appropriately, follows commands, able to make needs known. PSYCHIATRIC: No obvious anxiety/depression. no apparent hallucinations or other psychotic thought process. . (Elham Lanza) Diagnostic Tests Laboratory Laboratory Tests Test 01/13/17 09:16 01/14/17 09:11 01/15/17 08:21 White Blood Count 9.1 TH/MM3 (4.0-11.0) 5.6 TH/MM3 (4.0-11.0) 5.0 TH/MM3 (4.0-11.0) Red Blood Count 2.89 MIL/MM3 (4.00-5.30) 3.26 MIL/MM3 (4.00-5.30) 3.24 MIL/MM3 (4.00-5.30) Hemoglobin 8.9 GM/DL (11.6-15.3) 9.8 GM/DL (11.6-15.3) 9.6 GM/DL (11.6-15.3) Hematocrit 26.1 % (35.0-46.0) 29.2 % (35.0-46.0) 28.8 % (35.0-46.0) Mean Corpuscular Volume 90.4 FL (80.0-100.0) 89.8 FL (80.0-100.0) 88.8 FL (80.0-100.0) Mean Corpuscular Hemoglobin 30.8 PG (27.0-34.0) 30.1 PG (27.0-34.0) 29.5 PG (27.0-34.0) Mean Corpuscular Hemoglobin Concent 34.0 % (32.0-36.0) 33.5 % (32.0-36.0) 33.3 % (32.0-36.0) Red Cell Distribution Width 16.3 % (11.6-17.2) 15.9 % (11.6-17.2) 15.8 % (11.6-17.2) Platelet Count 213 TH/MM3 (150-450) 201 TH/MM3 (150-450) 188 TH/MM3 (150-450) Mean Platelet Volume 6.5 FL (7.0-11.0) 6.5 FL (7.0-11.0) 6.6 FL (7.0-11.0) Blood Urea Nitrogen 52 MG/DL (7-18) 51 MG/DL (7-18) 60 MG/DL (7-18) Creatinine 2.31 MG/DL (0.50-1.00) 2.14 MG/DL (0.50-1.00) 2.19 MG/DL (0.50-1.00) Random Glucose 226 MG/DL (74-106) 120 MG/DL (74-106) 154 MG/DL (74-106) Total Protein 7.0 GM/DL (6.4-8.2) 7.3 GM/DL (6.4-8.2) Albumin 3.1 GM/DL (3.4-5.0) 3.1 GM/DL (3.4-5.0) 3.2 GM/DL (3.4-5.0) Calcium Level 9.7 MG/DL (8.5-10.1) 9.8 MG/DL (8.5-10.1) 10.4 MG/DL (8.5-10.1) Phosphorus Level 3.6 MG/DL (2.5-4.9) 4.3 MG/DL (2.5-4.9) 4.3 MG/DL (2.5-4.9) Alkaline Phosphatase 87 U/L (45-117) 87 U/L (45-117) Aspartate Amino Transf (AST/SGOT) 18 U/L (15-37) 9 U/L (15-37) Alanine Aminotransferase (ALT/SGPT) 19 U/L (10-53) 21 U/L (10-53) Total Bilirubin 0.4 MG/DL (0.2-1.0) 0.3 MG/DL (0.2-1.0) Sodium Level 129 MEQ/L (136-145) 132 MEQ/L (136-145) 131 MEQ/L (136-145) Potassium Level 5.2 MEQ/L (3.5-5.1) 4.3 MEQ/L (3.5-5.1) 3.8 MEQ/L (3.5-5.1) Chloride Level 96 MEQ/L (98-107) 98 MEQ/L (98-107) 93 MEQ/L (98-107) Carbon Dioxide Level 22.5 MEQ/L (21.0-32.0) 23.5 MEQ/L (21.0-32.0) 27.2 MEQ/L (21.0-32.0) Anion Gap 11 MEQ/L (5-15) 11 MEQ/L (5-15) 11 MEQ/L (5-15) Estimat Glomerular Filtration Rate 21 ML/MIN (>89) 23 ML/MIN (>89) 23 ML/MIN (>89) 25-Hydroxy Vitamin D Total 14.0 ng/ML (30-100) Parathyroid Hormone (Intact) 6.5 PG/ML (12.4-76.8) Neutrophils (%) (Auto) 82.9 % (16.0-70.0) 80.6 % (16.0-70.0) Lymphocytes (%) (Auto) 9.7 % (9.0-44.0) 10.5 % (9.0-44.0) Monocytes (%) (Auto) 7.3 % (0.0-8.0) 8.3 % (0.0-8.0) Eosinophils (%) (Auto) 0.0 % (0.0-4.0) 0.5 % (0.0-4.0) Basophils (%) (Auto) 0.1 % (0.0-2.0) 0.1 % (0.0-2.0) Neutrophils # (Auto) 4.7 TH/MM3 (1.8-7.7) 4.1 TH/MM3 (1.8-7.7) Lymphocytes # (Auto) 0.5 TH/MM3 (1.0-4.8) 0.5 TH/MM3 (1.0-4.8) Monocytes # (Auto) 0.4 TH/MM3 (0-0.9) 0.4 TH/MM3 (0-0.9) Eosinophils # (Auto) 0.0 TH/MM3 (0-0.4) 0.0 TH/MM3 (0-0.4) Basophils # (Auto) 0.0 TH/MM3 (0-0.2) 0.0 TH/MM3 (0-0.2) CBC Comment DIFF FINAL DIFF FINAL Differential Comment Magnesium Level 2.2 MG/DL (1.5-2.5) Hemoglobin A1c 5.9 % (4.3-6.0) Free Thyroxine 1.10 NG/DL (0.76-1.46) Thyroid Stimulating Hormone 3rd Gen 1.070 uIU/ML (0.358-3.740) Lipase 207 U/L (73-393) . (Elham Lanza) Result Diagram: 01/15/17 0821 01/15/17 0821 Imaging Last 72 hours Impressions Chest X-Ray 01/15/17 0000 Signed Impressions: Service Date/Time: Sunday, January 15, 2017 08:56 - CONCLUSION: 1. Improved right lower lung zone aeration. 2. Stable pleural-parenchymal disease in the left lower lung zone. Dereck Bang MD Abdomen X-Ray 01/15/17 0000 Signed Impressions: Service Date/Time: Sunday, January 15, 2017 07:48 - CONCLUSION: 1. No evidence of obstruction. Gustabo Dotson MD . Procedures 12/14/16: Intubation 12/14/16: Left IJ CVL placement 12/26/16: Bronchoscopy/Tracheostomy 12/27/16 PEG tube placement (Elham Lanza) Patient/Family Conference Present at Family Conference: Met with patient at bedside. . Family Conference Location: Bedside Issues Discussed: * Palliative care role, purpose, approach * Additional medical, psychosocial, and spiritual history * Patients general health, functional status, and cognitive changes in the months leading up to the current hospitalization * Patient/family understanding of the current medical problems * Patient/family understanding of prognosis * Patients goals of care as best understood from advance directives and/or conversations and/or values * Current medical treatment options and benefits/burdens of those options * Likely scenarios comparing ongoing aggressive care with a transition to comfort measures only * Questions answered to the best of my ability * Palliative care contact information provided . (Elham Lanza) Assessment and Plan Disease Oriented Problem List: (1) Urinary retention (2) COPD with acute exacerbation (3) Acute respiratory failure (4) Acute renal failure (5) Hypocalcemia (6) Hyponatremia (7) DM (diabetes mellitus) Comment: Steroid-induced Symptom Scale: Pertinent Non-Medical Issues Psychosocial: a few years ago. Has 2 children, Carol (daughter) and Derrick (son). Many grandchildren. She lives with her daughter, LIZA and their children. Spiritual: Holiness darryl Legal: Patient designated her daughter, Carol Vigil, as the healthcare surrogate decision maker. Document completed on 09/05/2015. Ethical issues impacting care: No known ethical issues impacting care at this time. . Important Contacts Carol Vigil, daughter: [phone] . Prognosis Given underlying severe/ ES COPD and other comorbidities overall prognosis appears poor. . Code Status: Full Code Plan * FULL CODE * Decision-making: Patient's daughter, Carol Vigil, is the healthcare surrogate decision maker. * Additional notes were added to the designation of health care surrogate form which was completed on 09/05/2015. The patient states that if after 2 weeks of medical treatment there is no improvement in her condition, she would want she would want all aggressive interventions stopped at that time. Copy of the document is available in the patient's EMR. * AGGRESSIVE GOALS * In early conversation with attending physician, patient stated she did not want to be transferred back to the intensive care unit. However, the patient's goals remain aggressive. Patient stating she would want CPR and intubation/ mechanical ventilation if necessary. Palliative care had a lengthy conversation with the patient at bedside; patient indicating again that she does not want to be transferred to the intensive care unit but would be amenable to this transfer and any other procedures deemed medically necessary. * Spoke with patient's nurse, iMchelle * Palliative care contact information was left with patient at bedside. * Symptom management: == Dyspnea: Patient with a history of recurrent pneumonia/bronchitis , ES COPD (on home oxygen) and HERACLIO. Patient presented to [facility] 12/14/2016 after a three-day history of dyspnea. Chest x-ray revealed possible vascular congestion. He emergently intubated while in the ED. Status post tracheostomy on 12/26/16[facility] secondary to desaturating into the 80s. Meds: Solu-Medrol 40 mg IV every 4 hours; Duonebs every 6 hours; Mucinex 1200 mg PO 2 times daily; Symbicort 160-4.5 inhaler - 2 puffs q12 hours; albuterol nebulizer 2.5 mg every 2 hours PRN SOB/wheezing. Pulmonology following == Pain: Patient with neuropathy with chronic pain, lumbar spinal stenosis status post lumbar fusion, rheumatoid arthritis, Additional causes of pain may include impaired skin integrity, invasive lines, tracheostomy, PEG tube placement, abdominal pain, infection etc. Current orders for Tramadol 50 mg PO q6 hours PRN which has been administered once in the past 24 hours and Gabapentin 100 mg PO 3 times daily == Decreased appetite: Patient reporting a poor appetite stating " the food tastes that". Per documentation, intake 75-100%. BMI: 31.2. No recommendations at this time. * Palliative care will continue to follow this patient throughout his hospitalization to establish trust, assist with symptom management and clarification of medical treatment goals. . (Elham Lanza) Thank you for the opportunity to participate in the care of Ms. Vigil. . (Elham Lanza) Collaborating Comments . Attestation To help prompt me to consider important information that might be impacting today's encounter and assessment, information from prior notes written by myself or my colleagues may have been "brought forward" into today's note. My signature on this note, however, is an attestation that I personally performed the exam, history, and/or decision-making noted today, and, unless otherwise indicated, the interactions with patient, family, and staff as well as the review of records all occurred today. I also attest that the listed assessment and stated plan reflect my best clinical judgment today based on the combination of historical information, prior notes, and today's exam/ interactions. When time spent is documented, it refers only to time spent today by the signer, or if indicated, combined time spent today by collaborating physician/nurse practitioner. . (Elham Lanza) Collaborating MD Comments Chart reviewed. Case discussed with palliative care PUBLIC STENOGRAPHER. Above PUBLIC STENOGRAPHER note reviewed and I concur. . (Chacorta Lombardi MD) Elham Lanza Jan 15, 2017 15:14 Chacorta Lombardi MD Jan 20, 2017 15:51
--- NOTE | 2017-01-15 21:16 | RADRPT ---
EXAM DATE/TIME: 01/15/2017 20:07 [place] COMPARISON: No previous studies available for comparison. INDICATIONS : Diffuse abdominal pain. ORAL CONTRAST: Prescribed oral contrast ingested. RADIATION DOSE: 16.41 CTDIvol (mGy) MEDICAL HISTORY : Cardiovascular disease. Hypertension. Renal calculi. SURGICAL HISTORY : Fusion, lumbar. Hysterectomy. Left hip surgery. ENCOUNTER: Initial ACUITY: 1 day PAIN SCALE: 6/10 LOCATION: Bilateral abdomen TECHNIQUE: Volumetric scanning of the abdomen and pelvis was performed. Using automated exposure control and adjustment of the mA and/or kV according to patient size, radiation dose was kept as low as reasonably achievable to obtain optimal diagnostic quality images. DICOM format image data is av ailable electronically for review and comparison. FINDINGS: There is a G-tube in place. There is dilatation of the proximal and mid small bowel parmjit suring up to 3.5 cm. There do appear to be areas that appear decompressed in the right lower quadran t likely within the ileum. These are filled with debris. There is debris in the colon. There are se gments of the ascending colon which appear decreased in caliber. The transverse colon, descending co charlene, sigmoid colon and rectum appear normal in size. There are a few scattered colonic diverticula i n the sigmoid region without inflammatory change. The liver, spleen, pancreas and right adrenal gland are normal. The patient has a 1.6 cm low density mass seen in the medial aspect of the left adrenal gland. This measures minus 14 Hounsfield units a nd is consistent with an adenoma. The left kidney appears grossly normal in size. There is a 1.6 cm low density mass at the superior lateral left kidney. This likely represents a cyst although it is nonspecific on this noncontrast CT examination. There is generalized atrophy of the right kidney wit h the right kidney measuring 7.3 cm in length. There are small 3 mm nonobstructing renal stones seen on the right side. No hydronephrosis is seen on either side. There are scattered atherosclerotic ca lcifications seen throughout the arterial system. The patient appears to be status post hysterectomy . No pelvic mass is seen. The patient has transpeduncular screws at the L3, L4 and L5 levels with stabilization devices at the L3-4 and L4-5 disc levels. There appears to be prominent degenerative change at the L5-S1 level. Th ere are compression deformities with loss of height at the T8 and T9 vertebral bodies and at the infe rior aspect of the L1 vertebral body. The patient has evidence of prior fractures at the sacrum, lef t iliac bone, and at the superior and inferior pubic rami bilaterally. There is surgical hardware at the left proximal femur. These fractures are thought to be chronic. There is increased density seen at the posterior lower lobes bilaterally likely related to atelectasis or consolidation. CONCLUSION: 1. Dilatation of the proximal and mid small bowel. There does appear to be debris within the distal s mall bowel. There is also an area of possible thinning of the distal ascending colon. Some degree o f obstruction needs to be suspected. 2. G-tube. 3. Evidence of multiple old prior fractures as described above. 4. Left adrenal gland adenoma. 5. Chronic atrophy at the right kidney. Nirav Camacho MD on January 15, 2017 at 20:50 Board Certified Radiologist. This report was verified electronically.
[2017-01-15] MEDS: CIPROFLOXACIN 500 MG TAB PO SCH (23:06)
[2017-01-16] VITALS (10 sets, daily range): BP systolic 114–142; BP diastolic 59–83; PULSE 65–81; RESP 18–20; TEMP 98.3–99.8; O2SAT 92–99
[2017-01-16] MEDS: LABETALOL HCL 200 MG TAB PO SCH ×3 (03:47→21:55)
[2017-01-16] MEDS: HEPARIN SODIUM - SQ 10,000 UNITS/ML VIAL SQ SCH ×2 (03:48→13:39)
[2017-01-16] MEDS: INSULIN NovoLIN REGULAR SUPPLEMENTAL SCALE SQ SCH ×4 (03:59→21:00)
[2017-01-16] MEDS: CHLORHEXIDINE GLUCONATE 2 % 1 PACK (2 CLOTHS) TOP SCH (04:00)
[2017-01-16] MEDS: RESP: ACETYLCYSTEINE 20% 30 ML NEB NEB SCH ×4 (04:17→20:49)
[2017-01-16] MEDS: RESP: ALBUTEROL 2.5 MG/IPRATROPIUM 0.5 MG NEB (SCH) NEB ×4 (04:17→20:48)
[2017-01-16] MEDS: ISOSORBIDE DINITRATE 10 MG TAB PO SCH ×5 (06:27→21:54)
[2017-01-16] MEDS: hydrALAZINE HCL 100 MG TAB PO SCH ×4 (06:27→21:54)
[2017-01-16] MEDS: cloNIDine HCL 0.3 MG TAB PO SCH ×4 (06:27→21:55)
[2017-01-16] MEDS: NIFEdipine 20 MG CAP PO SCH ×3 (06:29→21:54)
[2017-01-16] MEDS: CHLORHEXIDINE 0.12% (ORAL KIT) 15 ML CUP MT SCH ×2 (08:00→20:00)
[2017-01-16 08:19] LABS: AUTOMATED NEUTROPHIL # 4.2 TH/MM3 (1.8-7.7); EOSINOPHIL % 0.1 % (0.0-4.0); HEMATOCRIT 28.5 % (35.0-46.0); HEMO FLAGS DIFF FINAL; LYMPH % 6.6 % (9.0-44.0); LYMPHOCYTE # 0.3 TH/MM3 (1.0-4.8); MEAN CELL VOLUME 88.6 FL (80.0-100.0); MEAN CORPUSCULAR HEMOGLOBIN 30.7 PG (27.0-34.0); MEAN CORPUSCULAR HGB CONC 34.7 % (32.0-36.0); MONO % 5.9 % (0.0-8.0); NEUT % 87.4 % (16.0-70.0); PLATELET COUNT 185 TH/MM3 (150-450); RED BLOOD COUNT 3.22 MIL/MM3 (4.00-5.30); RED CELL DISTRIBUTION WIDTH 15.4 % (11.6-17.2); WHITE BLOOD COUNT 4.8 TH/MM3 (4.0-11.0)
[2017-01-16 08:56] LABS: BICARBONATE 30.1 MEQ/L (21.0-32.0); POTASSIUM 4.2 MEQ/L (3.5-5.1)
[2017-01-16] MEDS: UMECLIDINIUM 62.5 MCG/VILANTEROL 25 MCG INHALER INH SCH (09:00)
[2017-01-16] MEDS: SODIUM CHLORIDE 0.9% FLUSH 10 ML FLUSH IVF SCH (09:00)
[2017-01-16] MEDS: SODIUM CHLORIDE 0.9% FLUSH 10 ML FLUSH IV FLUSH SCH ×2 (09:16→21:56)
[2017-01-16] MEDS: guaiFENesin E.R. 600 MG TAB PO SCH ×2 (09:16→21:54)
[2017-01-16] MEDS: GABAPENTIN 100 MG CAP PO SCH ×3 (09:16→16:31)
[2017-01-16] MEDS: MAGNESIUM HYDROXIDE SUSP 30 ML CUP PO PRN (09:16)
[2017-01-16] MEDS: POLYETHYLENE GLYCOL 17 GM PKG PO SCH (09:16)
[2017-01-16] MEDS: methylPREDNISolone SOD SUCC 40 MG/1 ML VIAL IV PUSH SCH ×2 (09:16→21:55)
[2017-01-16] MEDS: DOCUSATE SODIUM 100 MG/10 ML UDC PO SCH ×2 (09:16→21:54)
[2017-01-16] MEDS: PANTOPRAZOLE SOD 20 MG DELAYED RELEASE TAB PO SCH (09:16)
[2017-01-16] MEDS: SENNOSIDES 8.6 MG TAB PO SCH (09:16)
[2017-01-16] MEDS: CHOLECALCIFEROL (VIT D3) 1000 UNIT TAB NG SCH (09:16)
[2017-01-16] MEDS: NYSTATIN 100,000 U/GM PWD 15 GM BTL TOPICAL SCH ×2 (09:21→21:56)
[2017-01-16] MEDS: BUDESONIDE-FORMOTEROL 160/4.5 MCG INHALER INH SCH ×2 (09:27→21:57)
--- NOTE | 2017-01-16 10:07 | HHI.NPPN ---
Subjective Renal Failure: Chronic, Acute, Stage IV Interval History Her creatinine is worse. She has copious tracheal secretions. (Tootie Grant) Review of Systems General Constitutional: Fatigue General Remarks generalized pain (Tootie Grant) Respiratory Lungs: SOB, Cough, Sputum (Tootie rGant) Objective Data Data Vital Signs Date Time Temp Pulse Resp B/P (MAP) Pulse Ox O2 Delivery O2 Flow Rate FiO2 01/16/17 08:10 99 Trach Collar 6.00 40 01/16/17 08:00 98.3 70 20 114/63 (80) 99 01/16/17 05:00 98.6 77 18 136/83 (100) 95 01/16/17 01:32 92 Trach Collar 6.00 40 01/16/17 00:33 99.8 74 18 132/68 (89) 95 01/15/17 20:49 99.3 78 16 125/69 (87) 95 01/15/17 20:08 Trach Collar 8.00 40 01/15/17 16:00 99.1 73 18 127/61 (83) 95 01/15/17 15:27 96 Trach Collar 6.00 40 01/15/17 11:19 99.2 80 20 122/64 (83) 90 (Tootie Grant) -: 01/16/17 0724 01/16/17 0724 Imaging Last 72 hours Impressions Chest X-Ray 01/15/17 0000 Signed Impressions: Service Date/Time: Sunday, January 15, 2017 08:56 - CONCLUSION: 1. Improved right lower lung zone aeration. 2. Stable pleural-parenchymal disease in the left lower lung zone. Dereck Bang MD Abdomen/Pelvis CT 01/15/17 0000 Signed Impressions: Service Date/Time: Sunday, January 15, 2017 20:07 - CONCLUSION: 1. Dilatation of the proximal and mid small bowel. There does appear to be debris within the distal small bowel. There is also an area of possible thinning of the distal ascending colon. Some degree of obstruction needs to be suspected. 2. G- tube. 3. Evidence of multiple old prior fractures as described above. 4. Left adrenal gland adenoma. 5. Chronic atrophy at the right kidney. Nirav Camacho MD Abdomen X-Ray 01/15/17 0000 Signed Impressions: Service Date/Time: Sunday, January 15, 2017 07:48 - CONCLUSION: 1. No evidence of obstruction. Gustabo Dotson MD Tubes & Lines: [place] Tubes & Lines Comment PEG (Easton Granton B. RECORD CENTER SPECIALIST) Physical Exam General Appearance: Well Developed, No Acute Distress, Comfortable, Obese (Rudy,Tootie B. REC[employer] C[employer] SPECIALIST) Eyes Eye Exam: Pupils Equal (Rudy,Tootie B. [employer] C[employer] SPECIALIST) Throat Throat Exam: Oral Mucosa [place] & Moist Throat Remarks trach (RudyTootie B. REC[employer] C[employer] SPECIALIST) Neck Neck Exam: Neck Supple (RudyTootie B. REC[employer] C[employer] SPECIALIST) Pulmonary Resp Exam: Clear Bilaterally, Breath Sounds Equal, No Distress, Diminished Breath Sounds (Rudy,Tootie B. REC[employer] C[employer] SPECIALIST) Cardiology CV Exam: Regular, Normal Sinus Rhythm (Rudy,Tootie B. REC[employer] C[employer] SPECIALIST) Gastrointestinal/Abdomen GI Exam: Soft, Non-Tender, Bowel Sounds Present GI Remarks + PEG (RudyTootie B. REC[employer] C[employer] SPECIALIST) Musculoskeletal MS Exam: Joints Intact, Normal Tone, Unable to Ambulate (Rudy,Tootie B. REC[employer] C[employer] SPECIALIST) Integumentary Skin Exam: Clear, Warm, Dry (Rudy,Tootie B. REC[employer] C[employer] SPECIALIST) Extremeties Extremities Exam: No Edema, Pedal Pulses Palpable (Rudy,Tootie B. REC[employer] C[employer] SPECIALIST) Neurologic Neuro Exam: Alert, Awake, Oriented, Speech Clear, Moving All Extremities (RudyTootie B. REC[employer] C[employer] SPECIALIST) Psychiatric Psych Exam: Appropriate Responses (RudyTootie B. REC[employer] C[employer] SPECIALIST) VTE Prophylaxis Device: SCDs (RudyTootie B. REC[employer] C[employer] SPECIALIST) Assessment/Plan Discussed Condition With: Patient Assessment Summary: KAILEE/Acute Renal Failure, Acute Tubular Necrosis, Anemia of CKD, Fluid/Volume Overload, Hypertension, Diabetes Mellitus Problem List: (1) Acute renal failure ICD Codes: N17.9 - Acute kidney failure, unspecified Status: Acute Plan: baseline CKD 4 KAILEE due to ATN with HD required from 12/20 to 12/31. Renal function is slightly worse PO fluids encouraged, had poor oral intake yesterday she is non oliguric but has had issues with retention, bladder scan ordered Avoid nephrotoxic agents. Minimize non essential medications. Repeat labs in AM (2) HCAP (healthcare-associated pneumonia) ICD Codes: J18.9 - Healthcare-associated pneumonia Status: Acute Plan: On solumedrol, off oral prednisone. She is on oral Cipro Monitor clinically She is on Mucomyst, Pulmicort, and nebulizers (3) Acute respiratory failure ICD Codes: J96.00 - Acute respiratory failure Status: Acute Plan: . S/p tracheostomy 12/26 she is off the vent; has T collar, follow with pulmonary improving, monitor will need rehab after discharge (4) DM (diabetes mellitus) ICD Codes: E11.9 - Type 2 diabetes mellitus without complications Status: Chronic Plan: continue insulin therapy goal 140-180 mg/dL (5) Hypocalcemia ICD Codes: E83.51 - Hypocalcemia Plan: PTH was elevated, now appropriately low. Hypocalcemia has corrected Stop calcium carbonate and calcitriol Continue cholecalciferol. (6) Anemia ICD Codes: D64.9 - Anemia, unspecified Status: Chronic Plan: GI still following; no further dark stools Hb stable monitor (Tootie Grant) Problem List: (1) Acute renal failure ICD Codes: N17.9 - Acute kidney failure, unspecified Status: Acute Plan: baseline CKD 4 KAILEE due to ATN with HD required from 12/20 to 12/31. Renal function is slightly worse PO fluids encouraged, had poor oral intake yesterday she is non oliguric but has had issues with retention, bladder scan ordered Avoid nephrotoxic agents. Minimize non essential medications. Repeat labs in AM (2) HCAP (healthcare-associated pneumonia) ICD Codes: J18.9 - Healthcare-associated pneumonia Status: Acute Plan: On solumedrol, off oral prednisone. She is on oral Cipro Monitor clinically She is on Mucomyst, Pulmicort, and nebulizers (3) Acute respiratory failure ICD Codes: J96.00 - Acute respiratory failure Status: Acute Plan: . S/p tracheostomy 12/26 she is off the vent; has T collar, follow with pulmonary improving, monitor will need rehab after discharge (4) DM (diabetes mellitus) ICD Codes: E11.9 - Type 2 diabetes mellitus without complications Status: Chronic Plan: continue insulin therapy goal 140-180 mg/dL (5) Hypocalcemia ICD Codes: E83.51 - Hypocalcemia Plan: PTH was elevated, now appropriately low. Hypocalcemia has corrected Stop calcium carbonate and calcitriol Continue cholecalciferol. (6) Anemia ICD Codes: D64.9 - Anemia, unspecified Status: Chronic Plan: GI still following; no further dark stools Hb stable monitor Plan patient was seen and examined. Renal function is worse. Encourage oral intake. Avoid nephrotoxins. Various possibilities: AIN due to antibiotic, pre-renal, or bladder retention. Consider stopping antibiotic if not needed, obtain bladder scan. Monitor labs. (Thomas Blackmon MD) Problem Qualifiers (1) Acute renal failure: Qualified Codes: N17.9 - Acute kidney failure, unspecified (2) Acute respiratory failure: Qualified Codes: J96.01 - Acute respiratory failure with hypoxia; J96.02 - Acute respiratory failure with hypercapnia (3) DM (diabetes mellitus): Qualified Codes: E13.9 - Other specified diabetes mellitus without complications Tootie Grant Jan 16, 2017 10:07 Thomas Blackmon MD Jan 17, 2017 08:00
--- NOTE | 2017-01-16 11:17 | HHI.GIFU ---
Subjective Remarks States she is feeling better today- although she has not had anything to eat. Still distended, mild abdominal cramping. No BM x 5 days. (Callie Sims) Objective Vitals I&O Vital Signs Date Time Temp Pulse Resp B/P (MAP) Pulse Ox O2 Delivery O2 Flow Rate FiO2 01/16/17 08:10 99 Trach Collar 6.00 40 01/16/17 08:00 98.3 70 20 114/63 (80) 99 01/16/17 05:00 98.6 77 18 136/83 (100) 95 01/16/17 01:32 92 Trach Collar 6.00 40 01/16/17 00:33 99.8 74 18 132/68 (89) 95 01/15/17 20:49 99.3 78 16 125/69 (87) 95 01/15/17 20:08 Trach Collar 8.00 40 01/15/17 16:00 99.1 73 18 127/61 (83) 95 01/15/17 15:27 96 Trach Collar 6.00 40 01/15/17 11:19 99.2 80 20 122/64 (83) 90 I/O 01/15/17 01/15/17 01/15/17 01/16/17 01/16/17 01/16/17 07:00 15:00 23:00 07:00 15:00 23:00 Intake Total 120 ml 473 ml 30 ml Output Total 950 ml 600 ml Balance -830 ml 473 ml -570 ml Intake Oral 120 ml 473 ml 30 ml Output Urine Total 350 ml Gastric Drainage Total 600 ml Emesis 600 ml # Voids 7 3 5 # Bowel Movements 1 Laboratory Laboratory Tests Test 01/16/17 07:24 White Blood Count 4.8 Red Blood Count 3.22 Hemoglobin 9.9 Hematocrit 28.5 Mean Corpuscular Volume 88.6 Mean Corpuscular Hemoglobin 30.7 Mean Corpuscular Hemoglobin Concent 34.7 Red Cell Distribution Width 15.4 Platelet Count 185 Mean Platelet Volume 7.1 Neutrophils (%) (Auto) 87.4 Lymphocytes (%) (Auto) 6.6 Monocytes (%) (Auto) 5.9 Eosinophils (%) (Auto) 0.1 Basophils (%) (Auto) 0.0 Neutrophils # (Auto) 4.2 Lymphocytes # (Auto) 0.3 Monocytes # (Auto) 0.3 Eosinophils # (Auto) 0.0 Basophils # (Auto) 0.0 CBC Comment DIFF FINAL Differential Comment Blood Urea Nitrogen 59 Creatinine 2.32 Random Glucose 160 Calcium Level 10.4 Sodium Level 129 Potassium Level 4.2 Chloride Level 91 Carbon Dioxide Level 30.1 Anion Gap 8 Estimat Glomerular Filtration Rate 21 Date/Time Source Procedure Growth Status 12/15/16 05:03 Blood Peripheral Aerobic Blood Culture - Final NO GROWTH IN 5 DAYS Complete 12/15/16 05:03 Blood Peripheral Anaerobic Blood Culture - Final NO GROWTH IN 5 DAYS Complete 12/16/16 10:00 Sputum Endotracheal Gram Stain - Final Complete 12/16/16 10:00 Sputum Endotracheal Sputum Culture - Final LIGHT GROWTH NORMAL RESPIRATORY SLAVA Complete 01/02/17 17:30 Urine Catheterized Urine Urine Culture - Final Chaya Albicans Complete Imaging Last Impressions Chest X-Ray 01/15/17 0000 Signed Impressions: Service Date/Time: Sunday, January 15, 2017 08:56 - CONCLUSION: 1. Improved right lower lung zone aeration. 2. Stable pleural-parenchymal disease in the left lower lung zone. Dereck Bang MD Abdomen/Pelvis CT 01/15/17 0000 Signed Impressions: Service Date/Time: Sunday, January 15, 2017 20:07 - CONCLUSION: 1. Dilatation of the proximal and mid small bowel. There does appear to be debris within the distal small bowel. There is also an area of possible thinning of the distal ascending colon. Some degree of obstruction needs to be suspected. 2. G- tube. 3. Evidence of multiple old prior fractures as described above. 4. Left adrenal gland adenoma. 5. Chronic atrophy at the right kidney. Nirav Camacho MD Abdomen X-Ray 01/15/17 0000 Signed Impressions: Service Date/Time: Sunday, January 15, 2017 07:48 - CONCLUSION: 1. No evidence of obstruction. Gustabo Dotson MD Liver Ultrasound 12/16/16 0000 Signed Impressions: Service Date/Time: Friday, December 16, 2016 15:25 - CONCLUSION: 1. The liver is prominent with no focal lesion or ascites. 2. The right kidney is small and atrophic in appearance with cortical thinning and no hydronephrosis. There is increased echogenicity most characteristic of medical renal disease. Dylan Bryant MD Renal Ultrasound 12/14/16 0000 Signed Impressions: Service Date/Time: Wednesday, December 14, 2016 18:21 - CONCLUSION: Medical renal disease with echogenic kidneys. There is some atrophy of the right kidney. Nirav Camacho MD Head CT 12/14/16 0000 Signed Impressions: Service Date/Time: Wednesday, December 14, 2016 17:38 - CONCLUSION: Negative for an acute process. Sander Resendiz MD FACR Physical Exam HEENT: Normocephalic; atraumatic; no jaundice CHEST: Tracheostomy, Passey Margaret valve. Course breath sounds CARDIAC: RRR ABDOMEN: Semifirm, distended, mild diffuse tenderness, bowel sounds hypoactive. PEG tube to LIWS with small amount of gastric secretions EXTREMITIES: Generalized edema. POWER WOOD SAWYER: Awake follows commands (Callie Sims) Assessment and Plan Plan ASSESSMENT: - Abdominal distention/pain with nausea/vomiting/constipation. Pt reports symptoms began last night with n/v, abdominal distention, diffuse abdominal pain. KUB (01/15/17)---> abdominal bowel gas pattern is normal, no evidence of obstruction. CT Scan abdomen and pelvis with po contrast ()---> Dilatation of the proximal and mid small bowel. There does appear to be debris within the distal small bowel. There is also an area of possible thinning of the distal ascending colon. Some degree of obstruction needs to be suspected. G tube. Evidence of multiple old prior fractures as described above. Left adrenal glad adenoma. Chronic atrophy of right kidney. Clinically improved- has not had diet. Continues to have abdominal cramping and no bm x 5 days now. - Constipation. No BM x 5 days per patient. On colace, Senokot, Miralax. Had dulcolax suppository yest. SSE x 2 today. - Melanotic/maroon stool. Nurse reports that she had a small melanotic stool with small amount of maroon tint to it on (01/08/17) and 2 small john colored bowel movements on (01/09). I flushed and aspirated clear contents from PEG tube (01/08). Pt reports that she last had colonoscopy 2 years ago and this was normal. EGD at time of PEG tube placement (12/27/16) was unremarkable. She has not had any further episodes of this. HH stable. - Dysphagia, FEN. Pt in ICU, with respiratory failure, severe copd, heraclio, suspected cap, requiring prolonged mechanical ventilation. S/P tracheostomy placement. GI consulted for PEG tube placement. Thermite Bomb Loader recommends Nepro at 40cc/hr and discontinuing the Steve BID. S/P EGD with peg tube placement (12/27/16)-- -> 1. The upper, middle, and distal third of the esophagus were carefully inspected and no abnormalities were noted. The z- line was well seen at the GEJ. The endoscope was pushed into the fundus which was normal including a retroflexed view. The antrum, first and second part of the duodenum were unremarkable. 2. No abnormalities 3.S/p peg placement. TF on hold. - Respiratory failure, COPD, HERACLIO, Suspected CAP. S/P tracheostomy, Tbar - Acute on chronic kidney disease, per renal. - DM, encephalopathy, htn, hyperlipidemia, per attending PLAN: - Clear liquids - SBFT - SSE x 2 - Cont. Miralax - Cont. Senokot - Monitor HH - Transfuse as necessary - Notify GI of bleeding - Supportive care - Further recommendations to follow based on results of above - Pt seen and examined by Dr. Barber and myself and this note is written on her behalf (Callie Sims) Physician Comments seen, examined agree with above connect peg to suction again await sbft report if worse we will ask surgery to see her npo except medications (Swathi Barber MD) Callie Sims Jan 16, 2017 11:17 Swathi Barber MD Jan 16, 2017 18:04
[2017-01-16] MEDS ORDERED: DIATRIZOATE MEGLUM/DIATRIZOATE SOD 120 ML BTL (for RAD DIAG) J-TUBE ONE (15:45)
[2017-01-16] MEDS: ONDANSETRON HCL 4 MG/2 ML VIAL IV PRN (15:48)
--- NOTE | 2017-01-16 15:51 | HHI.PR ---
Subjective Remarks Follow-up abdominal pain, nausea/vomiting, COPD. Patient just returned from radiology. She reports significant nausea. She has been vomiting. She feels that her breathing is somewhat better. She is currently on oxygen per nasal cannula. Objective Vitals Vital Signs Date Time Temp Pulse Resp B/P (MAP) Pulse Ox O2 Delivery O2 Flow Rate FiO2 01/16/17 11:37 98.5 65 20 115/59 (77) 93 01/16/17 08:10 99 Trach Collar 6.00 40 01/16/17 08:00 98.3 70 20 114/63 (80) 99 01/16/17 05:00 98.6 77 18 136/83 (100) 95 01/16/17 01:32 92 Trach Collar 6.00 40 01/16/17 00:33 99.8 74 18 132/68 (89) 95 01/15/17 20:49 99.3 78 16 125/69 (87) 95 01/15/17 20:08 Trach Collar 8.00 40 01/15/17 16:00 99.1 73 18 127/61 (83) 95 I/O 01/15/17 01/15/17 01/15/17 01/16/17 01/16/17 01/16/17 07:00 15:00 23:00 07:00 15:00 23:00 Intake Total 120 ml 473 ml 30 ml Output Total 950 ml 600 ml Balance -830 ml 473 ml -570 ml Intake Oral 120 ml 473 ml 30 ml Output Urine Total 350 ml Gastric Drainage Total 600 ml Emesis 600 ml # Voids 7 3 5 # Bowel Movements 1 Result Diagram: 01/16/1772301/16/17723 Imaging Last Impressions Chest X-Ray 01/15/17 0000 Signed Impressions: Service Date/Time: Sunday, January 15, 2017 08:56 - CONCLUSION: 1. Improved right lower lung zone aeration. 2. Stable pleural-parenchymal disease in the left lower lung zone. Dereck Bang MD Abdomen/Pelvis CT 01/15/17 0000 Signed Impressions: Service Date/Time: Sunday, January 15, 2017 20:07 - CONCLUSION: 1. Dilatation of the proximal and mid small bowel. There does appear to be debris within the distal small bowel. There is also an area of possible thinning of the distal ascending colon. Some degree of obstruction needs to be suspected. 2. G- tube. 3. Evidence of multiple old prior fractures as described above. 4. Left adrenal gland adenoma. 5. Chronic atrophy at the right kidney. Nirav Camacho MD Abdomen X-Ray 01/15/17 0000 Signed Impressions: Service Date/Time: Sunday, January 15, 2017 07:48 - CONCLUSION: 1. No evidence of obstruction. Gustabo Dotson MD Liver Ultrasound 12/16/16 0000 Signed Impressions: Service Date/Time: Friday, December 16, 2016 15:25 - CONCLUSION: 1. The liver is prominent with no focal lesion or ascites. 2. The right kidney is small and atrophic in appearance with cortical thinning and no hydronephrosis. There is increased echogenicity most characteristic of medical renal disease. Dylan Bryant MD Renal Ultrasound 12/14/16 0000 Signed Impressions: Service Date/Time: Wednesday, December 14, 2016 18:21 - CONCLUSION: Medical renal disease with echogenic kidneys. There is some atrophy of the right kidney. Nirav Camacho MD Head CT 12/14/16 0000 Signed Impressions: Service Date/Time: Wednesday, December 14, 2016 17:38 - CONCLUSION: Negative for an acute process. Sander Resendiz MD FACR Objective Remarks General: No acute distress. Tracheostomy. Heart: Regular rate and rhythm. No murmur. Lungs: Coarse breath sounds bilaterally. Breathing is nonlabored. Abdomen: Soft, diffusely tender to palpation without rebound/guarding, nondistended. Decreased bowel sounds. Extremities: No lower extremity edema. Psych: Alert and oriented. Appears uncomfortable. Procedures SP TRACHEOSTOMY 9-13 SP PEG 9-14 SP VDRF Urinary Catheter: No Vascular Central Line Catheter: No A/P Problem List: (1) Acute respiratory failure ICD Code: J96.00 - Acute respiratory failure Status: Acute (2) Hypocalcemia ICD Code: E83.51 - Hypocalcemia (3) COPD with acute exacerbation ICD Code: J44.1 - Acute exacerbation of chronic obstructive airways disease Status: Acute (4) Hyponatremia ICD Code: E87.1 - Hyponatremia Status: Acute (5) Acute kidney injury ICD Code: N17.9 - Acute kidney failure, unspecified Status: Acute (6) DM (diabetes mellitus) ICD Code: E11.9 - Type 2 diabetes mellitus without complications Status: Chronic (7) Urinary retention ICD Code: R33.9 - Retention of urine, unspecified Status: Resolved (8) 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 Severe COPD with exacerbation, chronic respiratory failure with acute exacerbation: Tracheostomy done 12/26/16. Tolerating trach collar. Management of trach per pulmonology. New bronchodilators, supplemental oxygen. Unable to take medications PO due to nausea/vomiting. Continue IV steroids. 2. Toxic metabolic encephalopathy: Likely secondary to CO2 retention. Resolved. 3. Hypertension: Continue hydralazine, Isordil, nifedipine, clonidine, labetalol. 4. Hyperlipidemia: Statin held secondary to elevated LFTs. 5. Pulmonary hypertension: Appreciate pulmonology recommendations. 6. Elevated transaminases: Resolved. 7. Diabetes mellitus with neuropathy: Monitor Accu-Cheks and cover with sliding scale insulin. 8. Acute kidney injury superimposed on chronic kidney disease stage IV: Appreciate nephrology recommendations. Patient's baseline creatinine is approximately 1.8. 9. Normocytic anemia: Monitor CBC. H&H stable. 10. Pneumonia, probably community-acquired: Continue antibiotics. Appreciate infectious disease recommendations. 11. UTI: Urine culture growing Chaya. Completed course of fluconazole. 12. Tinea cruris: Nystatin powder. 13. GI prophylaxis: Protonix. 14. DVT prophylaxis: SCDs, heparin. 15. Abdominal pain, nausea/vomiting: Appreciate gastroenterology recommendations. CT abdomen/pelvis shows dilatation of the proximal and mid small bowel with debris in the distal small bowel. Possible bowel obstruction. Small bowel follow-through in process. Problem Qualifiers (1) Acute respiratory failure: Qualified Codes: J96.01 - Acute respiratory failure with hypoxia; J96.02 - Acute respiratory failure with hypercapnia (2) DM (diabetes mellitus): Qualified Codes: E13.9 - Other specified diabetes mellitus without complications (3) Acute renal failure: Qualified Codes: N17.9 - Acute kidney failure, unspecified Rich Gutierrez MD Jan 16, 2017 15:51
[2017-01-16] MEDS: ALPRAZolam 0.5 MG TAB PO PRN (18:29)
[2017-01-16] MEDS: CIPROFLOXACIN 500 MG TAB PO SCH (21:55)
[2017-01-17] VITALS (10 sets, daily range): BP systolic 99–137; BP diastolic 53–77; PULSE 62–74; RESP 16–20; TEMP 97.6–98.8; O2SAT 89–99
[2017-01-17] MEDS: HEPARIN SODIUM - SQ 10,000 UNITS/ML VIAL SQ SCH ×2 (02:58→12:30)
[2017-01-17] MEDS: INSULIN NovoLIN REGULAR SUPPLEMENTAL SCALE SQ SCH ×4 (03:24→21:00)
[2017-01-17] MEDS: LABETALOL HCL 200 MG TAB PO SCH ×3 (04:00→21:46)
[2017-01-17] MEDS: CHLORHEXIDINE GLUCONATE 2 % 1 PACK (2 CLOTHS) TOP SCH (04:00)
[2017-01-17] MEDS: RESP: ALBUTEROL 2.5 MG/IPRATROPIUM 0.5 MG NEB (SCH) NEB ×4 (05:16→20:07)
[2017-01-17] MEDS: RESP: ACETYLCYSTEINE 20% 30 ML NEB NEB SCH ×4 (05:17→20:07)
[2017-01-17] MEDS: NIFEdipine 20 MG CAP PO SCH ×3 (06:00→21:48)
[2017-01-17] MEDS: hydrALAZINE HCL 100 MG TAB PO SCH ×3 (06:00→21:46)
[2017-01-17] MEDS: cloNIDine HCL 0.3 MG TAB PO SCH ×3 (06:47→21:59)
[2017-01-17] MEDS: ISOSORBIDE DINITRATE 10 MG TAB PO SCH ×3 (06:47→21:46)
--- NOTE | 2017-01-17 07:56 | RADRPT ---
EXAM DATE/TIME: 01/16/2017 14:08 [place] COMPARISON: CT ABDOMEN & PELVIS W/O CONTRAST, January 15, 2017, 20:07. INDICATIONS : Evaluate for small bowel obstruction. FLUORO TIME: 0 minutes IMAGE COUNT: 12 CONTRAST: MD Celestin IMAGING TIME(S): 15 min, 30 min, 45 min, 1 hr3 hr, 8hr, 16hr MEDICAL HISTORY : Hypertension. Chronic obstructive pulmonary disease. Myocardial infarction. Cardiac disease. Ater iovenous shunt. Hyercholesterolemia. Diabetes. Renal disease. SURGICAL HISTORY : Pacemaker. ENCOUNTER: Initial ACUITY: 1 day PAIN SCORE: 10/10 LOCATION: Bilateral abdomen. FINDINGS: Preliminary film demonstrates postsurgical changes lower lumbar spine. Hardware in the left proximal femur. G-tube noted. The stomach is grossly unremarkable. Examination of the small bowel demonstrates normal mucosal pattern involving the jejunum and ileum. There is no evidence of mass or obstruction. No intraluminal filling defects are identified. Small bowel transit time is slow 8- 16 hours. . CONCLUSION: Dilated small bowel loops with fluid transit time. Contrast eventually reached the large bowel. Chavez Harvey MD on January 17, 2017 at 7:52 Board Certified Radiologist. This report was verified electronically.
[2017-01-17] MEDS: CHLORHEXIDINE 0.12% (ORAL KIT) 15 ML CUP MT SCH ×2 (08:00→20:00)
--- NOTE | 2017-01-17 08:50 | HHI.NPPN ---
Subjective Renal Failure: Chronic, Acute, Stage IV Interval History Non oliguric, labs are pending today. Review of Systems General Constitutional: Fatigue General Remarks generalized pain Respiratory Lungs: SOB, Cough, Sputum Objective Data Data Vital Signs Date Time Temp Pulse Resp B/P (MAP) Pulse Ox O2 Delivery O2 Flow Rate FiO2 01/17/17 06:51 98.3 71 20 109/64 (79) 89 01/17/17 06:00 122/62 (82) 01/17/17 02:05 98.8 74 18 99/59 (72) 96 01/16/17 22:01 73 142/80 (100) 01/16/17 22:00 96 Trach Collar 8.00 40 01/16/17 20:48 95 Nasal Cannula 6.00 01/16/17 20:05 99.0 75 18 133/79 (97) 98 01/16/17 16:00 98.3 81 20 125/64 (84) 94 01/16/17 11:37 98.5 65 20 115/59 (77) 93 -: 01/16/17 0724 01/16/17 0724 Tubes & Lines: Bonilla Tubes & Lines Comment PEG Physical Exam General Appearance: Well Developed, No Acute Distress, Comfortable, Obese Eyes Eye Exam: Pupils Equal Throat Throat Exam: Oral Mucosa [place] & Moist Neck Neck Exam: Neck Supple Pulmonary Resp Exam: Clear Bilaterally, Breath Sounds Equal, No Distress, Diminished Breath Sounds Cardiology CV Exam: Regular, Normal Sinus Rhythm Gastrointestinal/Abdomen GI Exam: Soft, Non-Tender, Bowel Sounds Present Musculoskeletal MS Exam: Joints Intact, Normal Tone, Unable to Ambulate Integumentary Skin Exam: Clear, Warm, Dry Extremeties Extremities Exam: No Edema, Pedal Pulses Palpable Neurologic Neuro Exam: Alert, Awake, Oriented, Speech Clear, Moving All Extremities Psychiatric Psych Exam: Appropriate Responses VTE Prophylaxis Device: SCDs Assessment/Plan Discussed Condition With: Patient Assessment Summary: KAILEE/Acute Renal Failure, Acute Tubular Necrosis, Anemia of CKD, Fluid/Volume Overload, Hypertension, Diabetes Mellitus Problem List: (1) Acute renal failure ICD Codes: N17.9 - Acute kidney failure, unspecified Status: Acute Plan: baseline CKD 4 KAILEE due to ATN with HD required from 12/20 to 12/31. Various possibilities for worsening of renal function, AIN is possible. PO fluids encouraged, had poor oral intake yesterday she is non oliguric but has had issues with retention, bladder scan ordered Avoid nephrotoxic agents. Minimize non essential medications. Consider stopping antibiotic. Repeat labs in AM (2) HCAP (healthcare-associated pneumonia) ICD Codes: J18.9 - Healthcare-associated pneumonia Status: Acute Plan: On solumedrol, off oral prednisone. She is on oral Cipro Monitor clinically She is on Mucomyst, Pulmicort, and nebulizers (3) Acute respiratory failure ICD Codes: J96.00 - Acute respiratory failure Status: Acute Plan: . S/p tracheostomy 12/26 she is off the vent; has T collar, follow with pulmonary improving, monitor will need rehab after discharge (4) DM (diabetes mellitus) ICD Codes: E11.9 - Type 2 diabetes mellitus without complications Status: Chronic Plan: continue insulin therapy goal 140-180 mg/dL (5) Hypocalcemia ICD Codes: E83.51 - Hypocalcemia Plan: PTH was elevated, now appropriately low. Hypocalcemia has corrected Stop calcium carbonate and calcitriol Continue cholecalciferol. (6) Anemia ICD Codes: D64.9 - Anemia, unspecified Status: Chronic Plan: GI still following; no further dark stools Hb stable monitor Problem Qualifiers (1) Acute renal failure: Qualified Codes: N17.9 - Acute kidney failure, unspecified (2) Acute respiratory failure: Qualified Codes: J96.01 - Acute respiratory failure with hypoxia; J96.02 - Acute respiratory failure with hypercapnia (3) DM (diabetes mellitus): Qualified Codes: E13.9 - Other specified diabetes mellitus without complications Thomas Blackmon MD Jan 17, 2017 08:50
[2017-01-17] MEDS: NYSTATIN 100,000 U/GM PWD 15 GM BTL TOPICAL SCH ×2 (08:51→21:50)
[2017-01-17] MEDS: BUDESONIDE-FORMOTEROL 160/4.5 MCG INHALER INH SCH ×2 (08:51→21:50)
[2017-01-17] MEDS: UMECLIDINIUM 62.5 MCG/VILANTEROL 25 MCG INHALER INH SCH (08:52)
[2017-01-17] MEDS: DOCUSATE SODIUM 100 MG/10 ML UDC PO SCH ×2 (08:53→21:46)
[2017-01-17] MEDS: GABAPENTIN 100 MG CAP PO SCH ×3 (08:53→17:18)
[2017-01-17] MEDS: SENNOSIDES 8.6 MG TAB PO SCH (08:53)
[2017-01-17] MEDS: PANTOPRAZOLE SOD 20 MG DELAYED RELEASE TAB PO SCH (08:53)
[2017-01-17] MEDS: POLYETHYLENE GLYCOL 17 GM PKG PO SCH (08:53)
[2017-01-17] MEDS: CHOLECALCIFEROL (VIT D3) 1000 UNIT TAB NG SCH (08:53)
[2017-01-17] MEDS: guaiFENesin E.R. 600 MG TAB PO SCH ×2 (08:53→21:46)
[2017-01-17] MEDS: SODIUM CHLORIDE 0.9% FLUSH 10 ML FLUSH IV FLUSH SCH ×2 (08:54→21:49)
[2017-01-17] MEDS: SODIUM CHLORIDE 0.9% FLUSH 10 ML FLUSH IVF SCH (08:55)
[2017-01-17] MEDS: methylPREDNISolone SOD SUCC 40 MG/1 ML VIAL IV PUSH SCH (08:55)
[2017-01-17 10:50] LABS: EOSINOPHIL % 0.1 % (0.0-4.0); HEMATOCRIT 27.2 % (35.0-46.0); HEMO FLAGS DIFF FINAL; LYMPH % 9.5 % (9.0-44.0); LYMPHOCYTE # 0.5 TH/MM3 (1.0-4.8); MEAN CELL VOLUME 89.5 FL (80.0-100.0); MEAN CORPUSCULAR HEMOGLOBIN 29.8 PG (27.0-34.0); MEAN CORPUSCULAR HGB CONC 33.3 % (32.0-36.0); MONO % 6.2 % (0.0-8.0); NEUT % 84.2 % (16.0-70.0); PLATELET COUNT 180 TH/MM3 (150-450); RED BLOOD COUNT 3.04 MIL/MM3 (4.00-5.30); RED CELL DISTRIBUTION WIDTH 15.3 % (11.6-17.2); WHITE BLOOD COUNT 4.8 TH/MM3 (4.0-11.0)
[2017-01-17 10:56] LABS: BICARBONATE 28.2 MEQ/L (21.0-32.0); MAGNESIUM 2.8 MG/DL (1.5-2.5); POTASSIUM 3.9 MEQ/L (3.5-5.1)
--- NOTE | 2017-01-17 11:39 | HHI.PR ---
Subjective Remarks Follow-up abdominal pain, COPD. the patient states that she feels much better today. She had a large bowel movement. No nausea or vomiting today. She wants to advance her diet. States that her breathing is better today as well. Objective Vitals Vital Signs Date Time Temp Pulse Resp B/P (MAP) Pulse Ox O2 Delivery O2 Flow Rate FiO2 01/17/17 10:48 98 Nasal Cannula 6.00 01/17/17 08:00 98.1 68 16 109/53 (71) 97 01/17/17 06:51 98.3 71 20 109/64 (79) 89 01/17/17 06:00 122/62 (82) 01/17/17 02:05 98.8 74 18 99/59 (72) 96 01/16/17 22:01 73 142/80 (100) 01/16/17 22:00 96 Trach Collar 8.00 40 01/16/17 20:48 95 Nasal Cannula 6.00 01/16/17 20:05 99.0 75 18 133/79 (97) 98 01/16/17 16:00 98.3 81 20 125/64 (84) 94 I/O 01/16/17 01/16/17 01/16/17 01/17/17 01/17/17 01/17/17 07:00 15:00 23:00 07:00 15:00 23:00 Intake Total 30 ml Output Total 600 ml 300 ml Balance -570 ml -300 ml Intake Oral 30 ml Gastric Drainage Total 600 ml 300 ml # Voids 5 3 1 1 # Bowel Movements 0 2 4 Result Diagram: 01/17/17 0955 01/17/17 0955 Imaging Last Impressions Small Bowel X-Ray 01/16/17 0000 Signed Impressions: Service Date/Time: Monday, January 16, 2017 14:08 - CONCLUSION: Dilated small bowel loops with fluid transit time. Contrast eventually reached the large bowel. Chavez Harvey MD Chest X-Ray 01/15/17 0000 Signed Impressions: Service Date/Time: Sunday, January 15, 2017 08:56 - CONCLUSION: 1. Improved right lower lung zone aeration. 2. Stable pleural-parenchymal disease in the left lower lung zone. Dereck Bang MD Abdomen/Pelvis CT 01/15/17 0000 Signed Impressions: Service Date/Time: Sunday, January 15, 2017 20:07 - CONCLUSION: 1. Dilatation of the proximal and mid small bowel. There does appear to be debris within the distal small bowel. There is also an area of possible thinning of the distal ascending colon. Some degree of obstruction needs to be suspected. 2. G- tube. 3. Evidence of multiple old prior fractures as described above. 4. Left adrenal gland adenoma. 5. Chronic atrophy at the right kidney. Nirav Camacho MD Abdomen X-Ray 01/15/17 0000 Signed Impressions: Service Date/Time: Sunday, January 15, 2017 07:48 - CONCLUSION: 1. No evidence of obstruction. Gustabo Dotson MD Liver Ultrasound 12/16/16 0000 Signed Impressions: Service Date/Time: Friday, December 16, 2016 15:25 - CONCLUSION: 1. The liver is prominent with no focal lesion or ascites. 2. The right kidney is small and atrophic in appearance with cortical thinning and no hydronephrosis. There is increased echogenicity most characteristic of medical renal disease. Dylan Bryant MD Renal Ultrasound 12/14/16 0000 Signed Impressions: Service Date/Time: Wednesday, December 14, 2016 18:21 - CONCLUSION: Medical renal disease with echogenic kidneys. There is some atrophy of the right kidney. Nirav Camacho MD Head CT 12/14/16 0000 Signed Impressions: Service Date/Time: Wednesday, December 14, 2016 17:38 - CONCLUSION: Negative for an acute process. Sander Resendiz MD FACR Objective Remarks General: No acute distress. Tracheostomy. Heart: Regular rate and rhythm. No murmur. Lungs: Coarse breath sounds bilaterally. Breathing is nonlabored. Abdomen: Soft, nontender, nondistended. Extremities: No lower extremity edema. Psych: Alert and oriented. Procedures SP TRACHEOSTOMY 9-13 SP PEG 9-14 SP VDRF Urinary Catheter: No Vascular Central Line Catheter: No A/P Problem List: (1) Acute respiratory failure ICD Code: J96.00 - Acute respiratory failure Status: Acute (2) Hypocalcemia ICD Code: E83.51 - Hypocalcemia (3) COPD with acute exacerbation ICD Code: J44.1 - Acute exacerbation of chronic obstructive airways disease Status: Acute (4) Hyponatremia ICD Code: E87.1 - Hyponatremia Status: Acute (5) Acute kidney injury ICD Code: N17.9 - Acute kidney failure, unspecified Status: Acute (6) DM (diabetes mellitus) ICD Code: E11.9 - Type 2 diabetes mellitus without complications Status: Chronic (7) Urinary retention ICD Code: R33.9 - Retention of urine, unspecified Status: Resolved (8) 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 Severe COPD with exacerbation, chronic respiratory failure with acute exacerbation: Tracheostomy done 12/26/16. Tolerating trach collar. Management of trach per pulmonology. Continue bronchodilators, supplemental oxygen. Unable to take medications PO due to nausea/vomiting. Continue IV steroids. Change back to oral when tolerating diet. 2. Toxic metabolic encephalopathy: Likely secondary to CO2 retention. Resolved. 3. Hypertension: Continue hydralazine, Isordil, nifedipine, clonidine, labetalol. 4. Hyperlipidemia: Statin held secondary to elevated LFTs. 5. Pulmonary hypertension: Appreciate pulmonology recommendations. 6. Elevated transaminases: Resolved. 7. Diabetes mellitus with neuropathy: Monitor Accu-Cheks and cover with sliding scale insulin. 8. Acute kidney injury superimposed on chronic kidney disease stage IV: Appreciate nephrology recommendations. Patient's baseline creatinine is approximately 1.8. 9. Normocytic anemia: Monitor CBC. H&H stable. 10. Pneumonia, probably community-acquired: Continue antibiotics. Appreciate infectious disease recommendations. 11. UTI: Urine culture growing Chaya. Completed course of fluconazole. 12. Tinea cruris: Nystatin powder. 13. GI prophylaxis: Protonix. 14. DVT prophylaxis: SCDs, heparin. 15. Abdominal pain, nausea/vomiting: Appreciate gastroenterology recommendations. CT abdomen/pelvis shows dilatation of the proximal and mid small bowel with debris in the distal small bowel. Possible bowel obstruction. Small bowel follow-through done yesterday. Patient reports significant improvement in her symptoms today. Problem Qualifiers (1) Acute respiratory failure: Qualified Codes: J96.01 - Acute respiratory failure with hypoxia; J96.02 - Acute respiratory failure with hypercapnia (2) DM (diabetes mellitus): Qualified Codes: E13.9 - Other specified diabetes mellitus without complications (3) Acute renal failure: Qualified Codes: N17.9 - Acute kidney failure, unspecified Rich Gutierrez MD Jan 17, 2017 11:39
--- NOTE | 2017-01-17 11:44 | HHI.GIFU ---
Subjective Remarks Resting in bed. Feeling much better. S/P SSE x 2- no results yesterday. S/P SBFT. Pt states that she had a large hard stool that was difficult to pass and afterwards, passed a large amount of loose stool filling her bed. She is feeling much better and wants to eat. (Callie Sims) Objective Vitals I&O Vital Signs Date Time Temp Pulse Resp B/P (MAP) Pulse Ox O2 Delivery O2 Flow Rate FiO2 01/17/17 10:48 98 Nasal Cannula 6.00 01/17/17 08:00 98.1 68 16 109/53 (71) 97 01/17/17 06:51 98.3 71 20 109/64 (79) 89 01/17/17 06:00 122/62 (82) 01/17/17 02:05 98.8 74 18 99/59 (72) 96 01/16/17 22:01 73 142/80 (100) 01/16/17 22:00 96 Trach Collar 8.00 40 01/16/17 20:48 95 Nasal Cannula 6.00 01/16/17 20:05 99.0 75 18 133/79 (97) 98 01/16/17 16:00 98.3 81 20 125/64 (84) 94 I/O 01/16/17 01/16/17 01/16/17 01/17/17 01/17/17 01/17/17 07:00 15:00 23:00 07:00 15:00 23:00 Intake Total 30 ml Output Total 600 ml 300 ml Balance -570 ml -300 ml Intake Oral 30 ml Gastric Drainage Total 600 ml 300 ml # Voids 5 3 1 1 # Bowel Movements 0 2 4 Laboratory Laboratory Tests Test 01/17/17 09:55 White Blood Count 4.8 Red Blood Count 3.04 Hemoglobin 9.1 Hematocrit 27.2 Mean Corpuscular Volume 89.5 Mean Corpuscular Hemoglobin 29.8 Mean Corpuscular Hemoglobin Concent 33.3 Red Cell Distribution Width 15.3 Platelet Count 180 Mean Platelet Volume 6.9 Neutrophils (%) (Auto) 84.2 Lymphocytes (%) (Auto) 9.5 Monocytes (%) (Auto) 6.2 Eosinophils (%) (Auto) 0.1 Basophils (%) (Auto) 0.0 Neutrophils # (Auto) 4.0 Lymphocytes # (Auto) 0.5 Monocytes # (Auto) 0.3 Eosinophils # (Auto) 0.0 Basophils # (Auto) 0.0 CBC Comment DIFF FINAL Differential Comment Blood Urea Nitrogen 70 Creatinine 2.35 Random Glucose 122 Albumin 2.9 Calcium Level 9.0 Phosphorus Level 4.1 Magnesium Level 2.8 Sodium Level 134 Potassium Level 3.9 Chloride Level 96 Carbon Dioxide Level 28.2 Anion Gap 10 Estimat Glomerular Filtration Rate 21 Date/Time Source Procedure Growth Status 12/15/16 05:03 Blood Peripheral Aerobic Blood Culture - Final NO GROWTH IN 5 DAYS Complete 12/15/16 05:03 Blood Peripheral Anaerobic Blood Culture - Final NO GROWTH IN 5 DAYS Complete 12/16/16 10:00 Sputum Endotracheal Gram Stain - Final Complete 12/16/16 10:00 Sputum Endotracheal Sputum Culture - Final LIGHT GROWTH NORMAL RESPIRATORY SLAVA Complete 01/02/17 17:30 Urine Catheterized Urine Urine Culture - Final Chaya Albicans Complete Imaging Last Impressions Small Bowel X-Ray 01/16/17 Signed Impressions: Service Date/Time: Monday, January 16, 2017 14:08 - CONCLUSION: Dilated small bowel loops with fluid transit time. Contrast eventually reached the large bowel. Chavez Harvey MD Chest X-Ray 01/15/17 Signed Impressions: Service Date/Time: Sunday, January 15, 2017 08:56 - CONCLUSION: 1. Improved right lower lung zone aeration. 2. Stable pleural-parenchymal disease in the left lower lung zone. Dereck Bang MD Abdomen/Pelvis CT 01/15/17 Signed Impressions: Service Date/Time: Sunday, January 15, 2017 20:07 - CONCLUSION: 1. Dilatation of the proximal and mid small bowel. There does appear to be debris within the distal small bowel. There is also an area of possible thinning of the distal ascending colon. Some degree of obstruction needs to be suspected. 2. G- tube. 3. Evidence of multiple old prior fractures as described above. 4. Left adrenal gland adenoma. 5. Chronic atrophy at the right kidney. Nirav Camacho MD Abdomen X-Ray 01/15/17 Signed Impressions: Service Date/Time: Sunday, January 15, 2017 07:48 - CONCLUSION: 1. No evidence of obstruction. Gustabo Dotson MD Liver Ultrasound 9/3/17 0000 Signed Impressions: Service Date/Time: Friday, December 16, 2016 15:25 - CONCLUSION: 1. The liver is prominent with no focal lesion or ascites. 2. The right kidney is small and atrophic in appearance with cortical thinning and no hydronephrosis. There is increased echogenicity most characteristic of medical renal disease. Dylan Bryant MD Renal Ultrasound 12/14/16 0000 Signed Impressions: Service Date/Time: Wednesday, December 14, 2016 18:21 - CONCLUSION: Medical renal disease with echogenic kidneys. There is some atrophy of the right kidney. Nirav Camacho MD Head CT 12/14/16 0000 Signed Impressions: Service Date/Time: Wednesday, December 14, 2016 17:38 - CONCLUSION: Negative for an acute process. Sander Resendiz MD FACR Physical Exam HEENT: Normocephalic; atraumatic; no jaundice CHEST: Tracheostomy, Passey Margaret valve. Course breath sounds CARDIAC: RRR ABDOMEN: Soft, nondistended, nontender. PEG tube clamped. (+) BM EXTREMITIES: Generalized edema. DEVELOPMENT GEOLOGIST: Awake follows commands (Callie Sims) Assessment and Plan Plan ASSESSMENT: - Ileus/constipation. CT Scan abdomen and pelvis with po contrast (01/15/17)--- > Dilatation of the proximal and mid small bowel. There does appear to be debris within the distal small bowel. There is also an area of possible thinning of the distal ascending colon. Some degree of obstruction needs to be suspected. G tube. Evidence of multiple old prior fractures as described above. Left adrenal glad adenoma. Chronic atrophy of right kidney. SBFT (01/16/17)----> Dilated small bowel loops with fluid transit time. Contrast eventually reached the large bowel. S/P SSE x 2 (01/16)--no results. Pt states that she had a large hard stool that was difficult to pass and afterwards, passed a large amount of loose stool filling her bed. She is feeling much better and wants to eat. Her abdomen is soft and nondistended/nontender. Cont. bowel regimen with miralax, colace, senokot. - Constipation/Impaction. S/P Large bowel movement (01/16/17). - Melanotic/maroon stool. Nurse reports that she had a small melanotic stool with small amount of maroon tint to it on (01/08/17) and 2 small john colored bowel movements on (01/09). I flushed and aspirated clear contents from PEG tube (01/08). Pt reports that she last had colonoscopy 2 years ago and this was normal. EGD at time of PEG tube placement (12/27/16) was unremarkable. She has not had any further episodes of this. HH stable. - Dysphagia, FEN. Pt in ICU, with respiratory failure, severe copd, heraclio, suspected cap, requiring prolonged mechanical ventilation. S/P tracheostomy placement. GI consulted for PEG tube placement. Center Director Lead Teacher recommends Nepro at 40cc/hr and discontinuing the Steve BID. S/P EGD with peg tube placement (12/27/16)-- -> 1. The upper, middle, and distal third of the esophagus were carefully inspected and no abnormalities were noted. The z- line was well seen at the GEJ. The endoscope was pushed into the fundus which was normal including a retroflexed view. The antrum, first and second part of the duodenum were unremarkable. 2. No abnormalities 3.S/p peg placement. TF on hold. - Respiratory failure, COPD, HERACLIO, Suspected CAP. S/P tracheostomy, Tbar - Acute on chronic kidney disease, per renal. - DM, encephalopathy, htn, hyperlipidemia, per attending PLAN: - Clear liquids, advance diet as tolerated - Cont. Miralax - Cont. Senokot - Monitor HH - Transfuse as necessary - Notify GI of bleeding - Supportive care - Can hold on Relistor for now- pt had multiple large bowel movements after passing a large hard stool that was difficult to pass and is no longer distended, tender, or having n/v. - Further recommendations to follow based on results of above - Pt seen and examined by Dr. Barber and myself and this note is written on her behalf (Callie Sims) Physician Comments gi will sign off call us as needed (Swathi Barber MD) Callie Sims Jan 17, 2017 11:44 Swathi Barber MD Jan 17, 2017 18:35
[2017-01-17] MEDS ORDERED: METHYLNALTREXONE BROMIDE 12 MG/0.6 ML VIAL SQ ONE (12:00)
[2017-01-17] MEDS: METOCLOPRAMIDE HCL 10 MG/2 ML VIAL IM SCH ×2 (12:31→21:47)
[2017-01-17] MEDS: CIPROFLOXACIN 500 MG TAB PO SCH (21:46)
[2017-01-17] MEDS: predniSONE 20 MG TAB PO SCH (21:48)
[2017-01-17] MEDS: ALPRAZolam 0.5 MG TAB PO PRN (22:00)
[2017-01-18] VITALS (11 sets, daily range): BP systolic 94–152; BP diastolic 56–92; PULSE 62–77; RESP 16–20; TEMP 97.3–98.9; O2SAT 90–100
[2017-01-18] MEDS: HEPARIN SODIUM - SQ 10,000 UNITS/ML VIAL SQ SCH ×2 (02:13→12:35)
[2017-01-18] MEDS: INSULIN NovoLIN REGULAR SUPPLEMENTAL SCALE SQ SCH ×4 (03:48→21:20)
[2017-01-18] MEDS: CHLORHEXIDINE GLUCONATE 2 % 1 PACK (2 CLOTHS) TOP SCH (03:56)
[2017-01-18] MEDS: LABETALOL HCL 200 MG TAB PO SCH ×3 (04:00→21:17)
[2017-01-18] MEDS: RESP: ALBUTEROL 2.5 MG/IPRATROPIUM 0.5 MG NEB (SCH) NEB ×3 (05:32→20:30)
[2017-01-18] MEDS: RESP: ACETYLCYSTEINE 20% 30 ML NEB NEB SCH ×2 (05:32→10:00)
[2017-01-18] MEDS: METOCLOPRAMIDE HCL 10 MG/2 ML VIAL IM SCH ×3 (06:00→21:21)
[2017-01-18] MEDS: ISOSORBIDE DINITRATE 10 MG TAB PO SCH ×3 (06:20→21:18)
[2017-01-18] MEDS: cloNIDine HCL 0.3 MG TAB PO SCH ×3 (06:20→21:17)
[2017-01-18] MEDS: hydrALAZINE HCL 100 MG TAB PO SCH ×3 (06:20→21:17)
[2017-01-18] MEDS: NIFEdipine 20 MG CAP PO SCH ×3 (06:20→21:18)
[2017-01-18] MEDS: SODIUM CHLORIDE 0.9% FLUSH 10 ML FLUSH IVF SCH (07:55)
[2017-01-18] MEDS: SENNOSIDES 8.6 MG TAB PO SCH (07:55)
[2017-01-18] MEDS: POLYETHYLENE GLYCOL 17 GM PKG PO SCH (07:55)
[2017-01-18] MEDS: CHLORHEXIDINE 0.12% (ORAL KIT) 15 ML CUP MT SCH ×2 (07:56→20:00)
[2017-01-18] MEDS: GABAPENTIN 100 MG CAP PO SCH ×3 (08:42→18:15)
[2017-01-18] MEDS: guaiFENesin E.R. 600 MG TAB PO SCH ×2 (08:42→21:18)
[2017-01-18] MEDS: DOCUSATE SODIUM 100 MG/10 ML UDC PO SCH (08:42)
[2017-01-18] MEDS: SODIUM CHLORIDE 0.9% FLUSH 10 ML FLUSH IV FLUSH SCH ×2 (08:42→21:22)
[2017-01-18] MEDS: PANTOPRAZOLE SOD 20 MG DELAYED RELEASE TAB PO SCH (08:42)
[2017-01-18] MEDS: predniSONE 20 MG TAB PO SCH ×2 (08:42→21:18)
[2017-01-18] MEDS: CHOLECALCIFEROL (VIT D3) 1000 UNIT TAB NG SCH (08:42)
[2017-01-18] MEDS: BUDESONIDE-FORMOTEROL 160/4.5 MCG INHALER INH SCH ×2 (08:43→21:22)
[2017-01-18] MEDS: UMECLIDINIUM 62.5 MCG/VILANTEROL 25 MCG INHALER INH SCH (08:43)
[2017-01-18] MEDS: NYSTATIN 100,000 U/GM PWD 15 GM BTL TOPICAL SCH ×2 (08:47→21:21)
--- NOTE | 2017-01-18 09:42 | HHI.NPPN ---
Subjective Renal Failure: Chronic, Acute, Stage IV Interval History Her respiratory status has improved. On oxygen via nasal cannula, less mucous, states she has been expectorating mucous plugs. Lung sounds improved. (Tootie Grant) Review of Systems General Constitutional: Fatigue General Remarks generalized pain (Tootie Grant) Respiratory Lungs: SOB, Cough, Sputum (Tootie Grant) Objective Data Data Vital Signs Date Time Temp Pulse Resp B/P (MAP) Pulse Ox O2 Delivery O2 Flow Rate FiO2 01/18/17 08:00 98.8 70 20 94/56 (69) 95 01/18/17 06:23 97.5 75 18 127/60 (82) 100 01/18/17 04:29 62 16 95 01/18/17 04:00 97.6 75 18 129/60 (83) 92 01/18/17 04:00 97.6 75 20 129/92 (104) 90 01/18/17 03:00 96 Nasal Cannula 5.00 Humidified 01/18/17 00:00 97.3 68 20 119/63 (81) 90 01/18/17 00:00 97.3 68 20 119/63 (81) 90 01/17/17 20:37 98 Trach Collar 5.00 01/17/17 20:16 98.3 66 17 120/67 (84) 97 01/17/17 20:09 96 Nasal Cannula 5.00 01/17/17 20:00 98.3 65 20 117/60 (79) 99 01/17/17 16:00 98.2 65 16 103/65 (78) 99 01/17/17 12:00 97.6 62 16 137/77 (97) 97 01/17/17 10:48 98 Nasal Cannula 6.00 (Tootie Grant) -: 01/17/17 0955 01/17/17 0955 Imaging Last 72 hours Impressions Small Bowel X-Ray 01/16/17 0000 Signed Impressions: Service Date/Time: Monday, January 16, 2017 14:08 - CONCLUSION: Dilated small bowel loops with fluid transit time. Contrast eventually reached the large bowel. Chavez Harvey MD Tubes & Lines: [place] Tubes & Lines Comment PEG (Tootie Grant) Physical Exam General Appearance: Well Developed, No Acute Distress, Comfortable, Obese (Tootie GrantP) Eyes Eye Exam: Pupils Equal (Tootie Grant) Throat Throat Exam: Oral Mucosa [place] & Moist Throat Remarks trach (Tootie Grant [employer]) Neck Neck Exam: Neck Supple (Tootie GrantP) Pulmonary Resp Exam: Clear Bilaterally, Breath Sounds Equal, No Distress, Diminished Breath Sounds (Tootie GrantP) Cardiology CV Exam: Regular, Normal Sinus Rhythm (Tootie Grant) Gastrointestinal/Abdomen GI Exam: Soft, Non-Tender, Bowel Sounds Present, Positive Bowel Movement GI Remarks + PEG (Tootie Grant) Musculoskeletal MS Exam: Joints Intact, Normal Tone, Unable to Ambulate (Tootie GrantP) Integumentary Skin Exam: Clear, Warm, Dry (Tootie Grant) Extremeties Extremities Exam: No Edema, Pedal Pulses Palpable (Tootie Grant) Neurologic Neuro Exam: Alert, Awake, Oriented, Speech Clear, Moving All Extremities (Tootie GrantP) Psychiatric Psych Exam: Appropriate Responses (Tootie Grant) VTE Prophylaxis Device: SCDs (Tootie Grant) Assessment/Plan Discussed Condition With: Patient Assessment Summary: KAILEE/Acute Renal Failure, Acute Tubular Necrosis, Anemia of CKD, Fluid/Volume Overload, Hypertension, Diabetes Mellitus Problem List: (1) Acute renal failure ICD Codes: N17.9 - Acute kidney failure, unspecified Status: Acute Plan: baseline CKD 4 KAILEE due to ATN with HD required from 12/20 to 12/31. Various possibilities for worsening of renal function, AIN is possible. Today's labs are not available for review High BUN may be to steroid use PO fluids encouraged, not on IVF. she is non oliguric , monitor for changes Avoid nephrotoxic agents. Minimize non essential medications. Consider stopping antibiotic. Repeat labs daily (2) HCAP (healthcare-associated pneumonia) ICD Codes: J18.9 - Healthcare-associated pneumonia Status: Acute Plan: Given a dose of solumedrol, on oral prednisone. Attempt to taper off over the next few days She is on oral Cipro Monitor clinically She is on Mucomyst, Pulmicort, and nebulizers s/p trach, there is discussion about reversing it (3) Acute respiratory failure ICD Codes: J96.00 - Acute respiratory failure Status: Acute Plan: . S/p tracheostomy 12/26 she is off the vent; has T collar, follow with pulmonary improving, monitor will need rehab after discharge (4) DM (diabetes mellitus) ICD Codes: E11.9 - Type 2 diabetes mellitus without complications Status: Chronic Plan: continue insulin therapy goal 140-180 mg/dL (5) Hypocalcemia ICD Codes: E83.51 - Hypocalcemia Plan: PTH was elevated, now appropriately low. Hypocalcemia has corrected Stop calcium carbonate and calcitriol Continue cholecalciferol. (6) Anemia ICD Codes: D64.9 - Anemia, unspecified Status: Chronic Plan: GI still following; no further dark stools Hb stable monitor (Tootie Grant) Problem List: (1) Acute renal failure ICD Codes: N17.9 - Acute kidney failure, unspecified Status: Acute Plan: baseline CKD 4 KAILEE due to ATN with HD required from 12/20 to 12/31. Various possibilities for worsening of renal function, AIN is possible. Today's labs are not available for review High BUN may be to steroid use PO fluids encouraged, not on IVF. she is non oliguric , monitor for changes Avoid nephrotoxic agents. Minimize non essential medications. Consider stopping antibiotic. Repeat labs daily (2) HCAP (healthcare-associated pneumonia) ICD Codes: J18.9 - Healthcare-associated pneumonia Status: Acute Plan: Given a dose of solumedrol, on oral prednisone. Attempt to taper off over the next few days She is on oral Cipro Monitor clinically She is on Mucomyst, Pulmicort, and nebulizers s/p trach, there is discussion about reversing it (3) Acute respiratory failure ICD Codes: J96.00 - Acute respiratory failure Status: Acute Plan: . S/p tracheostomy 12/26 she is off the vent; has T collar, follow with pulmonary improving, monitor will need rehab after discharge (4) DM (diabetes mellitus) ICD Codes: E11.9 - Type 2 diabetes mellitus without complications Status: Chronic Plan: continue insulin therapy goal 140-180 mg/dL (5) Hypocalcemia ICD Codes: E83.51 - Hypocalcemia Plan: PTH was elevated, now appropriately low. Hypocalcemia has corrected Stop calcium carbonate and calcitriol Continue cholecalciferol. (6) Anemia ICD Codes: D64.9 - Anemia, unspecified Status: Chronic Plan: GI still following; no further dark stools Hb stable monitor Plan patient was seen and examined. Renal function has improved today. Avoid all non essential drugs. (Thomas Blackmon MD) Problem Qualifiers (1) Acute renal failure: Qualified Codes: N17.9 - Acute kidney failure, unspecified (2) Acute respiratory failure: Qualified Codes: J96.01 - Acute respiratory failure with hypoxia; J96.02 - Acute respiratory failure with hypercapnia (3) DM (diabetes mellitus): Qualified Codes: E13.9 - Other specified diabetes mellitus without complications Tootie Grant Jan 18, 2017 09:42 Thomas Blackmon MD Jan 18, 2017 16:54
--- NOTE | 2017-01-18 12:53 | HHI.PR ---
Subjective Remarks Follow-up respiratory failure/COPD exacerbation 01/18/17-patient seen and examined, currently afebrile and denies any chest pain or shortness of breath. Requesting her diet to be changed to regular diet. Objective Vitals Vital Signs Date Time Temp Pulse Resp B/P (MAP) Pulse Ox O2 Delivery O2 Flow Rate FiO2 01/18/17 10:23 94 Nasal Cannula 3.00 01/18/17 10:23 Nasal Cannula 2.00 01/18/17 08:00 98.8 70 20 94/56 (69) 95 01/18/17 07:00 96 Trach Collar 5.00 01/18/17 06:23 97.5 75 18 127/60 (82) 100 01/18/17 04:29 62 16 95 01/18/17 04:00 97.6 75 18 129/60 (83) 92 01/18/17 04:00 97.6 75 20 129/92 (104) 90 01/18/17 03:00 96 Nasal Cannula 5.00 Humidified 01/18/17 00:00 97.3 68 20 119/63 (81) 90 01/18/17 00:00 97.3 68 20 119/63 (81) 90 01/17/17 20:37 98 Trach Collar 5.00 01/17/17 20:16 98.3 66 17 120/67 (84) 97 01/17/17 20:09 96 Nasal Cannula 5.00 01/17/17 20:00 98.3 65 20 117/60 (79) 99 01/17/17 16:00 98.2 65 16 103/65 (78) 99 I/O 01/17/17 01/17/17 01/17/17 01/18/17 01/18/17 01/18/17 06:59 14:59 22:59 06:59 14:59 22:59 # Voids 1 1 2 # Bowel Movements 4 Result Diagram: 01/17/17 0955 01/17/1755 Imaging Last Impressions Small Bowel X-Ray 01/16/17 0000 Signed Impressions: Service Date/Time: Monday, January 16, 2017 14:08 - CONCLUSION: Dilated small bowel loops with fluid transit time. Contrast eventually reached the large bowel. Chavez Harvey MD Chest X-Ray 01/15/17 0000 Signed Impressions: Service Date/Time: Sunday, January 15, 2017 08:56 - CONCLUSION: 1. Improved right lower lung zone aeration. 2. Stable pleural-parenchymal disease in the left lower lung zone. Dereck Bang MD Abdomen/Pelvis CT 01/15/17 Signed Impressions: Service Date/Time: Sunday, January 15, 2017 20:07 - CONCLUSION: 1. Dilatation of the proximal and mid small bowel. There does appear to be debris within the distal small bowel. There is also an area of possible thinning of the distal ascending colon. Some degree of obstruction needs to be suspected. 2. G- tube. 3. Evidence of multiple old prior fractures as described above. 4. Left adrenal gland adenoma. 5. Chronic atrophy at the right kidney. Nirav Camacho MD Abdomen X-Ray 01/15/17 Signed Impressions: Service Date/Time: Sunday, January 15, 2017 07:48 - CONCLUSION: 1. No evidence of obstruction. Gustabo Dotson MD Liver Ultrasound 12/16/16 Signed Impressions: Service Date/Time: Friday, December 16, 2016 15:25 - CONCLUSION: 1. The liver is prominent with no focal lesion or ascites. 2. The right kidney is small and atrophic in appearance with cortical thinning and no hydronephrosis. There is increased echogenicity most characteristic of medical renal disease. Dylan Bryant MD Renal Ultrasound 12/14/16 0000 Signed Impressions: Service Date/Time: Wednesday, December 14, 2016 18:21 - CONCLUSION: Medical renal disease with echogenic kidneys. There is some atrophy of the right kidney. Nirav Camacho MD Head CT 12/14/16 0000 Signed Impressions: Service Date/Time: Wednesday, December 14, 2016 17:38 - CONCLUSION: Negative for an acute process. Sander Resendiz MD FACR Objective Remarks GENERAL: NAD SKIN: Warm and dry. HEAD: Normocephalic. EYES: No scleral icterus. No injection or drainage. NECK: Trach in place. No JVD or lymphadenopathy. CARDIOVASCULAR: Regular rate and rhythm without murmurs, gallops, or rubs. RESPIRATORY: Breath sounds equal bilaterally. No accessory muscle use. GASTROINTESTINAL: Abdomen soft, non-tender, nondistended. MUSCULOSKELETAL: No cyanosis, or edema. BACK: Nontender without obvious deformity. No CVA tenderness. Procedures SP TRACHEOSTOMY - SP PEG 9-14 SP VDRF A/P Problem List: (1) Acute respiratory failure ICD Code: J96.00 - Acute respiratory failure Status: Acute (2) Hypocalcemia ICD Code: E83.51 - Hypocalcemia (3) COPD with acute exacerbation ICD Code: J44.1 - Acute exacerbation of chronic obstructive airways disease Status: Acute (4) Hyponatremia ICD Code: E87.1 - Hyponatremia Status: Acute (5) Acute kidney injury ICD Code: N17.9 - Acute kidney failure, unspecified Status: Acute (6) DM (diabetes mellitus) ICD Code: E11.9 - Type 2 diabetes mellitus without complications Status: Chronic (7) Urinary retention ICD Code: R33.9 - Retention of urine, unspecified Status: Resolved (8) 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 Severe COPD with exacerbation, chronic respiratory failure with acute exacerbation: Tracheostomy done 12/26/16. Tolerating trach collar. Management of trach per pulmonology. Continue bronchodilators, supplemental oxygen as well as by mouth steroids 2. Toxic metabolic encephalopathy: Resolved. 3. Hypertension: Continue hydralazine, Isordil, nifedipine, clonidine, labetalol. 4. Hyperlipidemia: Resume statin 5. Pulmonary hypertension: Appreciate pulmonology recommendations. 6. Elevated transaminases: Resolved. 7. Diabetes mellitus with neuropathy: A1c 5.9; currently on low insulin sliding scale 8. Acute kidney injury superimposed on chronic kidney disease stage IV: Appreciate nephrology recommendations. Patient's baseline creatinine is approximately 1.8. 9. Normocytic anemia: H&H stable. 10. Pneumonia, probably community-acquired: Currently on Cipro 500mg BID until 01/21/17. Appreciate input from infectious disease specialist 11. UTI: Completed course of fluconazole. 12. Tinea cruris: Nystatin powder. 13. GI prophylaxis: Protonix. 14. DVT prophylaxis: SCDs, heparin. 15. Abdominal pain, nausea/vomiting: Resolved Problem Qualifiers (1) Acute respiratory failure: Qualified Codes: J96.01 - Acute respiratory failure with hypoxia; J96.02 - Acute respiratory failure with hypercapnia (2) DM (diabetes mellitus): Qualified Codes: E13.9 - Other specified diabetes mellitus without complications (3) Acute renal failure: Qualified Codes: N17.9 - Acute kidney failure, unspecified Chavez Berger MD Jan 18, 2017 12:53
[2017-01-18] MEDS: traMADol HCL 50 MG TAB PO PRN (14:16)
[2017-01-18 15:15] LABS: BICARBONATE 25.8 MEQ/L (21.0-32.0)
[2017-01-18] MEDS: RESP: ALBUTEROL 2.5 MG/3 ML NEB (PRN) INH (15:32)
[2017-01-18] MEDS ORDERED: RESP: ACETYLCYSTEINE 20% 30 ML NEB NEB SCH (16:00)
[2017-01-18] MEDS ORDERED: RESP: ALBUTEROL 2.5 MG/IPRATROPIUM 0.5 MG NEB (SCH) NEB ×2 (16:00)
[2017-01-18] MEDS ORDERED: methylPREDNISolone SOD SUCC 125 MG/2 ML VIAL IV PUSH ONE (17:15)
[2017-01-18] MEDS: CIPROFLOXACIN 500 MG TAB PO SCH (21:17)
[2017-01-18] MEDS: ATORVASTATIN 20 MG TAB PO SCH (21:17)
[2017-01-18] MEDS: ALPRAZolam 0.5 MG TAB PO PRN (23:50)
[2017-01-19] VITALS (8 sets, daily range): BP systolic 96–136; BP diastolic 54–67; PULSE 68–85; RESP 17–24; TEMP 97.6–98.8; O2SAT 90–97
[2017-01-19] MEDS: RESP: ACETYLCYSTEINE 20% 30 ML NEB NEB SCH ×3 (01:31→16:00)
[2017-01-19] MEDS: HEPARIN SODIUM - SQ 10,000 UNITS/ML VIAL SQ SCH ×2 (03:09→13:24)
[2017-01-19] MEDS: LABETALOL HCL 200 MG TAB PO SCH ×3 (03:09→21:57)
[2017-01-19] MEDS: INSULIN NovoLIN REGULAR SUPPLEMENTAL SCALE SQ SCH ×4 (03:14→23:35)
[2017-01-19] MEDS: CHLORHEXIDINE GLUCONATE 2 % 1 PACK (2 CLOTHS) TOP SCH (03:31)
[2017-01-19] MEDS: ISOSORBIDE DINITRATE 10 MG TAB PO SCH ×3 (05:49→21:57)
[2017-01-19] MEDS: cloNIDine HCL 0.3 MG TAB PO SCH ×3 (05:49→21:54)
[2017-01-19] MEDS: NIFEdipine 20 MG CAP PO SCH ×3 (05:49→21:51)
[2017-01-19] MEDS: hydrALAZINE HCL 100 MG TAB PO SCH ×3 (05:49→21:53)
[2017-01-19] MEDS: METOCLOPRAMIDE HCL 10 MG/2 ML VIAL IM SCH ×3 (05:50→22:03)
[2017-01-19] MEDS: MAGNESIUM HYDROXIDE SUSP 30 ML CUP PO PRN (05:55)
[2017-01-19 07:02] LABS: BICARBONATE 26.2 MEQ/L (21.0-32.0)
[2017-01-19] MEDS: CHLORHEXIDINE 0.12% (ORAL KIT) 15 ML CUP MT SCH ×2 (08:00→20:00)
[2017-01-19] MEDS: RESP: ALBUTEROL 2.5 MG/IPRATROPIUM 0.5 MG NEB (SCH) NEB ×4 (08:30→22:31)
[2017-01-19] MEDS: BUDESONIDE-FORMOTEROL 160/4.5 MCG INHALER INH SCH ×2 (09:57→22:07)
[2017-01-19] MEDS: SENNOSIDES 8.6 MG TAB PO SCH (09:58)
[2017-01-19] MEDS: CHOLECALCIFEROL (VIT D3) 1000 UNIT TAB NG SCH (09:58)
[2017-01-19] MEDS: PANTOPRAZOLE SOD 20 MG DELAYED RELEASE TAB PO SCH (09:58)
[2017-01-19] MEDS: SODIUM CHLORIDE 0.9% FLUSH 10 ML FLUSH IV FLUSH SCH ×2 (09:58→21:59)
[2017-01-19] MEDS: predniSONE 20 MG TAB PO SCH ×2 (09:58→21:58)
[2017-01-19] MEDS: POLYETHYLENE GLYCOL 17 GM PKG PO SCH (09:58)
[2017-01-19] MEDS: guaiFENesin E.R. 600 MG TAB PO SCH ×2 (09:58→21:54)
[2017-01-19] MEDS: GABAPENTIN 100 MG CAP PO SCH ×3 (09:58→17:25)
[2017-01-19] MEDS: SODIUM CHLORIDE 0.9% FLUSH 10 ML FLUSH IVF SCH (09:58)
[2017-01-19] MEDS: UMECLIDINIUM 62.5 MCG/VILANTEROL 25 MCG INHALER INH SCH (09:59)
[2017-01-19] MEDS: NYSTATIN 100,000 U/GM PWD 15 GM BTL TOPICAL SCH ×2 (10:03→22:04)
--- NOTE | 2017-01-19 12:32 | HHI.NPPN ---
Subjective Renal Failure: Chronic, Acute, Stage IV Additional Remarks Patient is alert, no SOB, eating better. Review of Systems General Constitutional: Fatigue General Remarks generalized pain Respiratory Lungs: SOB, Cough, Sputum Objective Data Data 01/19/17 01/20/17 19:00 07:00 Output Total 600 ml Balance -600 ml Output Urine Total 600 ml Vital Signs Date Time Temp Pulse Resp B/P (MAP) Pulse Ox O2 Delivery O2 Flow Rate FiO2 01/19/17 08:30 96 Nasal Cannula 6.00 01/19/17 08:00 98.8 68 18 96/54 (68) 97 01/19/17 04:00 97.6 72 18 134/63 (86) 92 01/19/17 00:00 98.1 74 18 134/67 (89) 92 01/18/17 21:12 95 Nasal Cannula 5.00 01/18/17 20:30 93 Nasal Cannula 5.00 01/18/17 20:00 98.2 73 18 152/70 (97) 93 01/18/17 16:00 98.9 75 20 129/62 (84) 97 01/18/17 15:43 97 Venturi Mask 6.00 50 01/18/17 15:18 16 -: 01/17/17 0955 01/19/17 0605 Tubes & Lines: [place] Tubes & Lines Comment PEG Physical Exam General Appearance: No Acute Distress, Comfortable, Obese Eyes Eye Exam: Pupils Equal Throat Throat Exam: Oral Mucosa [place] & Moist Neck Neck Exam: Neck Supple Pulmonary Resp Exam: Clear Bilaterally, Breath Sounds Equal, No Distress, Diminished Breath Sounds Cardiology CV Exam: Regular, Normal Sinus Rhythm Gastrointestinal/Abdomen GI Exam: Soft, Non-Tender, Bowel Sounds Present, Positive Bowel Movement Musculoskeletal MS Exam: Joints Intact, Normal Tone, Unable to Ambulate Integumentary Skin Exam: Clear, Warm, Dry Extremeties Extremities Exam: Trace Edema Neurologic Neuro Exam: Alert, Awake, Oriented, Speech Clear, Moving All Extremities Psychiatric Psych Exam: Appropriate Responses VTE Prophylaxis Device: SCDs Assessment/Plan Discussed Condition With: Patient Assessment Summary: KAILEE/Acute Renal Failure, Acute Tubular Necrosis, Anemia of CKD, Fluid/Volume Overload, Hypertension, Diabetes Mellitus Problem List: (1) Acute renal failure ICD Codes: N17.9 - Acute kidney failure, unspecified Status: Acute Plan: baseline CKD 4 KAILEE due to ATN with HD required from 12/20 to 12/31. Various possibilities for worsening of renal function, AIN is possible. Today's labs are not available for review High BUN may be to steroid use PO fluids encouraged, not on IVF. she is non oliguric , monitor for changes Avoid nephrotoxic agents. Minimize non essential medications. Consider stopping antibiotic. Creatinine continue to improve. (2) HCAP (healthcare-associated pneumonia) ICD Codes: J18.9 - Healthcare-associated pneumonia Status: Acute Plan: Given a dose of solumedrol, on oral prednisone. Attempt to taper off over the next few days She is on oral Cipro Monitor clinically She is on Mucomyst, Pulmicort, and nebulizers. (3) Acute respiratory failure ICD Codes: J96.00 - Acute respiratory failure Status: Acute Plan: . S/p tracheostomy 12/26 she is off the vent; has T collar, follow with pulmonary improving, monitor will need rehab after discharge (4) DM (diabetes mellitus) ICD Codes: E11.9 - Type 2 diabetes mellitus without complications Status: Chronic Plan: continue insulin therapy goal 140-180 mg/dL (5) Hypocalcemia ICD Codes: E83.51 - Hypocalcemia Plan: PTH was elevated, now appropriately low. Hypocalcemia has corrected Stop calcium carbonate and calcitriol Continue cholecalciferol. (6) Anemia ICD Codes: D64.9 - Anemia, unspecified Status: Chronic Plan: GI still following; no further dark stools Hb stable monitor Problem Qualifiers (1) Acute renal failure: Qualified Codes: N17.9 - Acute kidney failure, unspecified (2) Acute respiratory failure: Qualified Codes: J96.01 - Acute respiratory failure with hypoxia; J96.02 - Acute respiratory failure with hypercapnia (3) DM (diabetes mellitus): Qualified Codes: E13.9 - Other specified diabetes mellitus without complications Thomas Hines MD Jan 19, 2017 12:32
--- NOTE | 2017-01-19 14:01 | HHI.PR ---
Subjective Remarks Follow-up respiratory failure/COPD exacerbation 01/18/17-patient seen and examined, currently afebrile and denies any chest pain or shortness of breath. Requesting her diet to be changed to regular diet. 01/19/17-patient seen and examined, stable and patient is requesting when her PEG tube can be removed. Denies any shortness of breath Objective Vitals Vital Signs Date Time Temp Pulse Resp B/P (MAP) Pulse Ox O2 Delivery O2 Flow Rate FiO2 01/19/17 12:00 98.7 73 20 121/57 (78) 93 01/19/17 08:30 96 Nasal Cannula 6.00 01/19/17 08:00 98.8 68 18 96/54 (68) 97 01/19/17 04:00 97.6 72 18 134/63 (86) 92 01/19/17 00:00 98.1 74 18 134/67 (89) 92 01/18/17 21:12 95 Nasal Cannula 5.00 01/18/17 20:30 93 Nasal Cannula 5.00 01/18/17 20:00 98.2 73 18 152/70 (97) 93 01/18/17 16:00 98.9 75 20 129/62 (84) 97 01/18/17 15:43 97 Venturi Mask 6.00 50 01/18/17 15:18 16 I/O 01/18/17 01/18/17 01/18/17 01/19/17 01/19/17 01/19/17 06:59 14:59 22:59 06:59 14:59 22:59 Output Total 300 ml 600 ml Balance -300 ml -600 ml Output Urine Total 300 ml 600 ml # Voids 2 2 Result Diagram: 01/17/17 0955 01/19/17 0605 Objective Remarks GENERAL: NAD SKIN: Warm and dry. HEAD: Normocephalic. EYES: No scleral icterus. No injection or drainage. NECK: Trach in place. No JVD or lymphadenopathy. CARDIOVASCULAR: Regular rate and rhythm without murmurs, gallops, or rubs. RESPIRATORY: Breath sounds equal bilaterally. No accessory muscle use. GASTROINTESTINAL: Abdomen soft, non-tender, nondistended. MUSCULOSKELETAL: No cyanosis, or edema. BACK: Nontender without obvious deformity. No CVA tenderness. Procedures SP TRACHEOSTOMY - SP PEG 9-14 SP VDRF A/P Problem List: (1) Acute respiratory failure ICD Code: J96.00 - Acute respiratory failure Status: Acute (2) Hypocalcemia ICD Code: E83.51 - Hypocalcemia (3) COPD with acute exacerbation ICD Code: J44.1 - Acute exacerbation of chronic obstructive airways disease Status: Acute (4) Hyponatremia ICD Code: E87.1 - Hyponatremia Status: Acute (5) Acute kidney injury ICD Code: N17.9 - Acute kidney failure, unspecified Status: Acute (6) DM (diabetes mellitus) ICD Code: E11.9 - Type 2 diabetes mellitus without complications Status: Chronic (7) Urinary retention ICD Code: R33.9 - Retention of urine, unspecified Status: Resolved (8) 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 Severe COPD with exacerbation, chronic respiratory failure with acute exacerbation: Tracheostomy done 12/26/16. Tolerating trach collar. Management of trach per pulmonology. Continue bronchodilators, maintain oxygen saturation above 92% 2. Toxic metabolic encephalopathy: Resolved. 3. Hypertension: Continue hydralazine, Isordil, nifedipine, clonidine, labetalol. 4. Hyperlipidemia: Resume statin 5. Pulmonary hypertension: Appreciate pulmonology recommendations. 6. Elevated transaminases: Resolved. 7. Diabetes mellitus with neuropathy: A1c 5.9; currently on low insulin sliding scale 8. Acute kidney injury superimposed on chronic kidney disease stage IV: Appreciate nephrology recommendations. Patient's baseline creatinine is approximately 1.8. 9. Normocytic anemia: H&H stable. Transfuse for hemoglobin less than 8 10. Pneumonia, probably community-acquired: Currently on Cipro 500mg BID until 01/21/17. Appreciate input from infectious disease specialist 11. UTI: Completed course of fluconazole. 12. Tinea cruris: Nystatin powder. 13. GI prophylaxis: Protonix. 14. DVT prophylaxis: SCDs, heparin. 15. Abdominal pain, nausea/vomiting: Resolved Problem Qualifiers (1) Acute respiratory failure: Qualified Codes: J96.01 - Acute respiratory failure with hypoxia; J96.02 - Acute respiratory failure with hypercapnia (2) DM (diabetes mellitus): Qualified Codes: E13.9 - Other specified diabetes mellitus without complications (3) Acute renal failure: Qualified Codes: N17.9 - Acute kidney failure, unspecified Chavez Berger MD Jan 19, 2017 14:01
[2017-01-19] MEDS: ATORVASTATIN 20 MG TAB PO SCH (21:55)
[2017-01-19] MEDS: CIPROFLOXACIN 500 MG TAB PO SCH (21:56)
[2017-01-19] MEDS: ALPRAZolam 0.5 MG TAB PO PRN (23:30)
[2017-01-20] VITALS (8 sets, daily range): BP systolic 108–150; BP diastolic 60–80; PULSE 72–90; RESP 18–24; TEMP 97.7–98.7; O2SAT 90–95
[2017-01-20] MEDS: RESP: ACETYLCYSTEINE 20% 30 ML NEB NEB SCH ×4 (00:32→23:54)
[2017-01-20] MEDS: RESP: ALBUTEROL 2.5 MG/3 ML NEB (PRN) INH ×2 (00:32→23:54)
[2017-01-20] MEDS: INSULIN NovoLIN REGULAR SUPPLEMENTAL SCALE SQ SCH ×4 (03:00→21:29)
[2017-01-20] MEDS: HEPARIN SODIUM - SQ 10,000 UNITS/ML VIAL SQ SCH ×2 (03:36→13:16)
[2017-01-20] MEDS: LABETALOL HCL 200 MG TAB PO SCH ×3 (03:37→21:31)
[2017-01-20] MEDS: CHLORHEXIDINE GLUCONATE 2 % 1 PACK (2 CLOTHS) TOP SCH (03:42)
[2017-01-20] MEDS: hydrALAZINE HCL 100 MG TAB PO SCH ×3 (06:35→21:31)
[2017-01-20] MEDS: ISOSORBIDE DINITRATE 10 MG TAB PO SCH ×3 (06:35→21:31)
[2017-01-20] MEDS: NIFEdipine 20 MG CAP PO SCH ×3 (06:36→21:30)
[2017-01-20] MEDS: METOCLOPRAMIDE HCL 10 MG/2 ML VIAL IM SCH ×3 (06:38→21:31)
[2017-01-20] MEDS: cloNIDine HCL 0.3 MG TAB PO SCH ×3 (06:38→21:31)
[2017-01-20] MEDS: RESP: ALBUTEROL 2.5 MG/IPRATROPIUM 0.5 MG NEB (SCH) NEB ×4 (08:36→21:47)
[2017-01-20] MEDS: BUDESONIDE-FORMOTEROL 160/4.5 MCG INHALER INH SCH ×2 (09:00→21:32)
[2017-01-20] MEDS: SODIUM CHLORIDE 0.9% FLUSH 10 ML FLUSH IVF SCH (09:00)
[2017-01-20] MEDS: UMECLIDINIUM 62.5 MCG/VILANTEROL 25 MCG INHALER INH SCH (10:32)
[2017-01-20] MEDS: CHLORHEXIDINE 0.12% (ORAL KIT) 15 ML CUP MT SCH ×2 (10:32→20:00)
[2017-01-20] MEDS: SODIUM CHLORIDE 0.9% FLUSH 10 ML FLUSH IV FLUSH SCH ×2 (10:32→21:32)
[2017-01-20] MEDS: GABAPENTIN 100 MG CAP PO SCH ×3 (10:33→17:34)
[2017-01-20] MEDS: PANTOPRAZOLE SOD 20 MG DELAYED RELEASE TAB PO SCH (10:33)
[2017-01-20] MEDS: predniSONE 20 MG TAB PO SCH (10:33)
[2017-01-20] MEDS: guaiFENesin E.R. 600 MG TAB PO SCH ×2 (10:33→21:30)
[2017-01-20] MEDS: CHOLECALCIFEROL (VIT D3) 1000 UNIT TAB NG SCH (10:33)
[2017-01-20] MEDS: NYSTATIN 100,000 U/GM PWD 15 GM BTL TOPICAL SCH ×2 (10:34→21:00)
[2017-01-20] MEDS: POLYETHYLENE GLYCOL 17 GM PKG PO SCH (10:34)
[2017-01-20] MEDS: SENNOSIDES 8.6 MG TAB PO SCH (10:34)
--- NOTE | 2017-01-20 11:20 | HHI.NPPN ---
Subjective Renal Failure: Chronic, Acute, Stage IV Additional Remarks Patient is alert, no SOB, eating better, no complain, clinically same. Review of Systems General Constitutional: Fatigue General Remarks generalized pain Respiratory Lungs: SOB, Cough, Sputum Objective Data Data Vital Signs Date Time Temp Pulse Resp B/P (MAP) Pulse Ox O2 Delivery O2 Flow Rate FiO2 01/20/17 08:37 95 Nasal Cannula 4.00 01/20/17 08:00 98.7 72 19 108/62 (77) 90 01/20/17 06:30 97.7 78 24 133/60 (84) 92 01/20/17 00:30 98.4 80 23 130/64 (86) 92 01/20/17 00:04 Nasal Cannula 5.00 01/19/17 22:31 93 Nasal Cannula 6.00 01/19/17 21:40 97.9 85 24 136/65 (88) 92 01/19/17 16:00 97.9 70 17 111/56 (74) 90 01/19/17 12:00 98.7 73 20 121/57 (78) 93 -: 01/17/17 0955 01/19/17 0605 Tubes & Lines: [place] Tubes & Lines Comment PEG Physical Exam General Appearance: No Acute Distress, Comfortable, Obese Eyes Eye Exam: Pupils Equal Throat Throat Exam: Oral Mucosa [place] & Moist Neck Neck Exam: Neck Supple Pulmonary Resp Exam: Clear Bilaterally, Breath Sounds Equal, No Distress, Diminished Breath Sounds Cardiology CV Exam: Regular, Normal Sinus Rhythm Gastrointestinal/Abdomen GI Exam: Soft, Non-Tender, Bowel Sounds Present, Positive Bowel Movement Musculoskeletal MS Exam: Joints Intact, Normal Tone, Unable to Ambulate Integumentary Skin Exam: Clear, Warm, Dry Extremeties Extremities Exam: Trace Edema Neurologic Neuro Exam: Alert, Awake, Oriented, Speech Clear, Moving All Extremities Psychiatric Psych Exam: Appropriate Responses VTE Prophylaxis Device: SCDs Assessment/Plan Discussed Condition With: Patient Assessment Summary: KAILEE/Acute Renal Failure, Acute Tubular Necrosis, Anemia of CKD, Fluid/Volume Overload, Hypertension, Diabetes Mellitus Problem List: (1) Acute renal failure ICD Codes: N17.9 - Acute kidney failure, unspecified Status: Acute Plan: baseline CKD 4 KAILEE due to ATN with HD required from 12/20 to 12/31. Various possibilities for worsening of renal function, AIN is possible. High BUN may be to steroid use PO fluids encouraged, not on IVF. she is non oliguric , monitor for changes Avoid nephrotoxic agents. Minimize non essential medications. Consider stopping antibiotic. Creatinine continue to improve, now labs today. Dr. Blackmon to follow from AM. (2) HCAP (healthcare-associated pneumonia) ICD Codes: J18.9 - Healthcare-associated pneumonia Status: Acute Plan: Given a dose of solumedrol, on oral prednisone. Attempt to taper off over the next few days She is on oral Cipro Monitor clinically She is on Mucomyst, Pulmicort, and nebulizers. (3) Acute respiratory failure ICD Codes: J96.00 - Acute respiratory failure Status: Acute Plan: . S/p tracheostomy 12/26 she is off the vent; has T collar, follow with pulmonary improving, monitor will need rehab after discharge (4) DM (diabetes mellitus) ICD Codes: E11.9 - Type 2 diabetes mellitus without complications Status: Chronic Plan: continue insulin therapy goal 140-180 mg/dL (5) Hypocalcemia ICD Codes: E83.51 - Hypocalcemia Plan: PTH was elevated, now appropriately low. Hypocalcemia has corrected Stop calcium carbonate and calcitriol Continue cholecalciferol. (6) Anemia ICD Codes: D64.9 - Anemia, unspecified Status: Chronic Plan: GI still following; no further dark stools Hb stable monitor Problem Qualifiers (1) Acute renal failure: Qualified Codes: N17.9 - Acute kidney failure, unspecified (2) Acute respiratory failure: Qualified Codes: J96.01 - Acute respiratory failure with hypoxia; J96.02 - Acute respiratory failure with hypercapnia (3) DM (diabetes mellitus): Qualified Codes: E13.9 - Other specified diabetes mellitus without complications Thomas Hines MD Jan 20, 2017 11:20
--- NOTE | 2017-01-20 12:59 | HHI.PR ---
Subjective Remarks Follow-up respiratory failure/COPD exacerbation 01/18/17-patient seen and examined, currently afebrile and denies any chest pain or shortness of breath. Requesting her diet to be changed to regular diet. 01/19/17-patient seen and examined, stable and patient is requesting when her PEG tube can be removed. Denies any shortness of breath 01/20/17-patient seen and examined, reports breathing better, still weak.Afebrile Objective Vitals Vital Signs Date Time Temp Pulse Resp B/P (MAP) Pulse Ox O2 Delivery O2 Flow Rate FiO2 01/20/17 12:00 98.1 78 20 133/80 (97) 94 01/20/17 08:37 95 Nasal Cannula 4.00 01/20/17 08:00 98.7 72 19 108/62 (77) 90 01/20/17 06:30 97.7 78 24 133/60 (84) 92 01/20/17 00:30 98.4 80 23 130/64 (86) 92 01/20/17 00:04 Nasal Cannula 5.00 01/19/17 22:31 93 Nasal Cannula 6.00 01/19/17 21:40 97.9 85 24 136/65 (88) 92 01/19/17 16:00 97.9 70 17 111/56 (74) 90 I/O 01/19/17 01/19/17 01/19/17 01/20/17 01/20/17 01/20/17 07:00 15:00 23:00 07:00 15:00 23:00 Intake Total 580 ml 925 ml 1050 ml Output Total 600 ml Balance -20 ml 925 ml 1050 ml Intake Oral 580 ml 925 ml 1050 ml Output Urine Total 600 ml # Voids 2 2 3 # Bowel Movements 0 1 0 Result Diagram: 01/17/17 0955 01/19/17 0605 Objective Remarks GENERAL: NAD SKIN: Warm and dry. HEAD: Normocephalic. EYES: No scleral icterus. No injection or drainage. NECK: Trach in place. No JVD or lymphadenopathy. CARDIOVASCULAR: Regular rate and rhythm without murmurs, gallops, or rubs. RESPIRATORY: Breath sounds equal bilaterally. No accessory muscle use. GASTROINTESTINAL: Abdomen soft, non-tender, nondistended. MUSCULOSKELETAL: No cyanosis, or edema. BACK: Nontender without obvious deformity. No CVA tenderness. Procedures SP TRACHEOSTOMY 12-26 SP PEG - SP VDRF A/P Problem List: (1) Acute respiratory failure ICD Code: J96.00 - Acute respiratory failure Status: Acute (2) Hypocalcemia ICD Code: E83.51 - Hypocalcemia (3) COPD with acute exacerbation ICD Code: J44.1 - Acute exacerbation of chronic obstructive airways disease Status: Acute (4) Hyponatremia ICD Code: E87.1 - Hyponatremia Status: Acute (5) Acute kidney injury ICD Code: N17.9 - Acute kidney failure, unspecified Status: Acute (6) DM (diabetes mellitus) ICD Code: E11.9 - Type 2 diabetes mellitus without complications Status: Chronic (7) Urinary retention ICD Code: R33.9 - Retention of urine, unspecified Status: Resolved (8) 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 Severe COPD with exacerbation, chronic respiratory failure with acute exacerbation: Tracheostomy done 12/26/16. Trach removed on 01/18/17 by Pulmonary Medicine. Continue bronchodilators, maintain oxygen saturation above 92%. Taper Steroid to prednisone 10mg daily 01/21/17 2. Toxic metabolic encephalopathy: Resolved. 3. Hypertension: Continue hydralazine, Isordil, nifedipine, clonidine, labetalol. 4. Hyperlipidemia: Resume statin 5. Pulmonary hypertension: Appreciate pulmonology recommendations. 6. Elevated transaminases: Resolved. 7. Diabetes mellitus with neuropathy: A1c 5.9; currently on low insulin sliding scale 8. Acute kidney injury superimposed on chronic kidney disease stage IV: Appreciate nephrology recommendations. Patient's baseline creatinine is approximately 1.8. 9. Normocytic anemia: H&H stable. Transfuse for hemoglobin less than 8 10. Pneumonia, probably community-acquired: Currently on Cipro 500mg BID until 01/21/17. Appreciate input from infectious disease specialist 11. UTI: Completed course of fluconazole. 12. Tinea cruris: Nystatin powder. 13. GI prophylaxis: Protonix. 14. DVT prophylaxis: SCDs, heparin. 15. Abdominal pain, nausea/vomiting: Resolved Problem Qualifiers (1) Acute respiratory failure: Qualified Codes: J96.01 - Acute respiratory failure with hypoxia; J96.02 - Acute respiratory failure with hypercapnia (2) DM (diabetes mellitus): Qualified Codes: E13.9 - Other specified diabetes mellitus without complications (3) Acute renal failure: Qualified Codes: N17.9 - Acute kidney failure, unspecified Chavez Berger MD Jan 20, 2017 12:59
[2017-01-20] MEDS: traMADol HCL 50 MG TAB PO PRN (21:28)
[2017-01-20] MEDS: ATORVASTATIN 20 MG TAB PO SCH (21:30)
[2017-01-20] MEDS: CIPROFLOXACIN 500 MG TAB PO SCH (21:30)
[2017-01-20] MEDS: ALPRAZolam 0.5 MG TAB PO PRN (23:05)
[2017-01-21 00:40] VITALS: BP 128/88; PULSE 88; RESP 18; TEMP 98.9; O2SAT 93
[2017-01-21] MEDS: HEPARIN SODIUM - SQ 10,000 UNITS/ML VIAL SQ SCH ×2 (03:40→13:01)
[2017-01-21] MEDS: INSULIN NovoLIN REGULAR SUPPLEMENTAL SCALE SQ SCH ×3 (03:43→16:27)
[2017-01-21] MEDS: CHLORHEXIDINE GLUCONATE 2 % 1 PACK (2 CLOTHS) TOP SCH (04:00)
[2017-01-21] MEDS: LABETALOL HCL 200 MG TAB PO SCH ×2 (04:00→12:58)
[2017-01-21 05:15] VITALS: BP 130/80; PULSE 89; RESP 20; TEMP 97.8; O2SAT 92
[2017-01-21] MEDS: cloNIDine HCL 0.3 MG TAB PO SCH ×2 (05:59→13:01)
[2017-01-21] MEDS: NIFEdipine 20 MG CAP PO SCH ×2 (05:59→13:01)
[2017-01-21] MEDS: hydrALAZINE HCL 100 MG TAB PO SCH ×2 (05:59→13:01)
[2017-01-21] MEDS: ISOSORBIDE DINITRATE 10 MG TAB PO SCH ×2 (05:59→13:01)
[2017-01-21] MEDS: METOCLOPRAMIDE HCL 10 MG/2 ML VIAL IM SCH ×2 (05:59→13:01)
[2017-01-21] MEDS: RESP: ACETYLCYSTEINE 20% 30 ML NEB NEB SCH (08:00)
[2017-01-21] MEDS: CHLORHEXIDINE 0.12% (ORAL KIT) 15 ML CUP MT SCH (08:00)
--- NOTE | 2017-01-21 08:49 | HHI.NPPN ---
Subjective Renal Failure: Chronic, Acute, Stage IV Additional Remarks She has no shortness of breath. Lying in bed comfortably. Review of Systems General Constitutional: Fatigue General Remarks generalized pain Respiratory Lungs: Cough, Wheeze Objective Data Data Vital Signs Date Time Temp Pulse Resp B/P (MAP) Pulse Ox O2 Delivery O2 Flow Rate FiO2 01/21/17 05:15 97.8 89 20 130/80 (97) 92 01/21/17 00:40 98.9 88 18 128/88 (101) 93 01/20/17 22:28 20 01/20/17 21:47 93 Nasal Cannula 5.00 01/20/17 21:45 98.3 90 19 150/76 (100) 93 01/20/17 20:00 Nasal Cannula 4.00 01/20/17 16:00 98.3 73 18 129/60 (83) 91 01/20/17 12:00 98.1 78 20 133/80 (97) 94 01/20/17 10:30 Nasal Cannula 4.00 -: 01/17/17 0955 01/19/17 0605 Tubes & Lines: [place] Tubes & Lines Comment PEG Physical Exam General Appearance: No Acute Distress, Comfortable, Obese Eyes Eye Exam: Pupils Equal Throat Throat Exam: Oral Mucosa [place] & Moist Neck Neck Exam: Neck Supple Pulmonary Resp Exam: Clear Bilaterally, Breath Sounds Equal, No Distress, Diminished Breath Sounds Cardiology CV Exam: Regular, Normal Sinus Rhythm Gastrointestinal/Abdomen GI Exam: Soft, Non-Tender, Bowel Sounds Present, Positive Bowel Movement Musculoskeletal MS Exam: Joints Intact, Normal Tone, Unable to Ambulate Integumentary Skin Exam: Clear, Warm, Dry Extremeties Extremities Exam: Trace Edema Neurologic Neuro Exam: Alert, Awake, Oriented, Speech Clear, Moving All Extremities Psychiatric Psych Exam: Appropriate Responses VTE Prophylaxis Device: SCDs Assessment/Plan Discussed Condition With: Patient Assessment Summary: KAILEE/Acute Renal Failure, Acute Tubular Necrosis, Anemia of CKD, Fluid/Volume Overload, Hypertension, Diabetes Mellitus Problem List: (1) Acute renal failure ICD Codes: N17.9 - Acute kidney failure, unspecified Status: Acute Plan: KAILEE due to ATN with HD required from 12/20 to 12/31. Renal function is stable, GFR at baseline. Avoid nephrotoxins. (2) HCAP (healthcare-associated pneumonia) ICD Codes: J18.9 - Healthcare-associated pneumonia Status: Acute Plan: Off antibiotic. Taper down steroids if possible. Pulmonary following. (3) Acute respiratory failure ICD Codes: J96.00 - Acute respiratory failure Status: Acute Plan: . S/p tracheostomy 12/26 she is off the vent; has T collar, follow with pulmonary improving, monitor will need rehab after discharge (4) DM (diabetes mellitus) ICD Codes: E11.9 - Type 2 diabetes mellitus without complications Status: Chronic Plan: continue insulin therapy goal 140-180 mg/dL (5) Anemia ICD Codes: D64.9 - Anemia, unspecified Status: Chronic Plan: GI still following; no further dark stools Hb stable monitor (6) Hypocalcemia ICD Codes: E83.51 - Hypocalcemia Plan: Corrected calcium is near normal. Continue Vitamin D. Problem Qualifiers (1) Acute renal failure: Qualified Codes: N17.9 - Acute kidney failure, unspecified (2) Acute respiratory failure: Qualified Codes: J96.01 - Acute respiratory failure with hypoxia; J96.02 - Acute respiratory failure with hypercapnia (3) DM (diabetes mellitus): Qualified Codes: E13.9 - Other specified diabetes mellitus without complications Thomas Blackmon MD Jan 21, 2017 08:49
[2017-01-21] MEDS: SENNOSIDES 8.6 MG TAB PO SCH (08:52)
[2017-01-21] MEDS: GABAPENTIN 100 MG CAP PO SCH ×2 (08:52→12:58)
[2017-01-21] MEDS: CHOLECALCIFEROL (VIT D3) 1000 UNIT TAB NG SCH (08:52)
[2017-01-21] MEDS: PANTOPRAZOLE SOD 20 MG DELAYED RELEASE TAB PO SCH (08:52)
[2017-01-21] MEDS: POLYETHYLENE GLYCOL 17 GM PKG PO SCH (08:53)
[2017-01-21] MEDS: UMECLIDINIUM 62.5 MCG/VILANTEROL 25 MCG INHALER INH SCH (08:53)
[2017-01-21] MEDS: guaiFENesin E.R. 600 MG TAB PO SCH (08:53)
[2017-01-21] MEDS: SODIUM CHLORIDE 0.9% FLUSH 10 ML FLUSH IV FLUSH SCH (08:53)
[2017-01-21] MEDS: SODIUM CHLORIDE 0.9% FLUSH 10 ML FLUSH IVF SCH (08:54)
[2017-01-21] MEDS: BUDESONIDE-FORMOTEROL 160/4.5 MCG INHALER INH SCH (08:54)
[2017-01-21] MEDS: NYSTATIN 100,000 U/GM PWD 15 GM BTL TOPICAL SCH (08:55)
[2017-01-21] MEDS ORDERED: predniSONE 10 MG TAB PO SCH (09:00)
[2017-01-21 09:13] VITALS: BP 100/59; PULSE 68; RESP 16; TEMP 98.1; O2SAT 94
[2017-01-21] MEDS: RESP: ALBUTEROL 2.5 MG/IPRATROPIUM 0.5 MG NEB (SCH) NEB ×2 (09:16→11:42)
[2017-01-21 09:19] VITALS: O2SAT 96
[2017-01-21 12:45] VITALS: BP 135/71; PULSE 76; RESP 18; TEMP 98.6; O2SAT 96
--- NOTE | 2017-01-21 12:58 | HHI.PR ---
Subjective Remarks Follow-up respiratory failure/COPD exacerbation 01/18/17-patient seen and examined, currently afebrile and denies any chest pain or shortness of breath. Requesting her diet to be changed to regular diet. 01/19/17-patient seen and examined, stable and patient is requesting when her PEG tube can be removed. Denies any shortness of breath 01/20/17-patient seen and examined, reports breathing better, still weak.Afebrile 01/21/17-patient seen and examined, taking by mouth well without any complication. No longer wants her PEG tube. Breathing better. Objective Vitals Vital Signs Date Time Temp Pulse Resp B/P (MAP) Pulse Ox O2 Delivery O2 Flow Rate FiO2 01/21/17 12:45 98.6 76 18 135/71 (92) 96 01/21/17 09:19 96 Nasal Cannula 3.00 01/21/17 09:13 98.1 68 16 100/59 (73) 94 01/21/17 05:15 97.8 89 20 130/80 (97) 92 01/21/17 00:40 98.9 88 18 128/88 (101) 93 01/20/17 22:28 20 01/20/17 21:47 93 Nasal Cannula 5.00 01/20/17 21:45 98.3 90 19 150/76 (100) 93 01/20/17 20:00 Nasal Cannula 4.00 01/20/17 16:00 98.3 73 18 129/60 (83) 91 I/O 01/20/17 01/20/17 01/20/17 01/21/17 01/21/17 01/21/17 07:00 15:00 23:00 07:00 15:00 23:00 Intake Total 1050 ml 480 ml 1200 ml 900 ml Balance 1050 ml 480 ml 1200 ml 900 ml Intake Oral 1050 ml 480 ml 1200 ml 900 ml # Voids 3 4 1 3 # Bowel Movements 0 0 0 0 Result Diagram: 01/17/17 0955 01/19/17 0605 Imaging Last Impressions Small Bowel X-Ray 01/16/17 0000 Signed Impressions: Service Date/Time: Monday, January 16, 2017 14:08 - CONCLUSION: Dilated small bowel loops with fluid transit time. Contrast eventually reached the large bowel. Chavez Harvey MD Chest X-Ray 01/15/17 0000 Signed Impressions: Service Date/Time: Sunday, January 15, 2017 08:56 - CONCLUSION: 1. Improved right lower lung zone aeration. 2. Stable pleural-parenchymal disease in the left lower lung zone. Dereck Bang MD Abdomen/Pelvis CT 01/15/17 0000 Signed Impressions: Service Date/Time: Sunday, January 15, 2017 20:07 - CONCLUSION: 1. Dilatation of the proximal and mid small bowel. There does appear to be debris within the distal small bowel. There is also an area of possible thinning of the distal ascending colon. Some degree of obstruction needs to be suspected. 2. G- tube. 3. Evidence of multiple old prior fractures as described above. 4. Left adrenal gland adenoma. 5. Chronic atrophy at the right kidney. Nirav Camacho MD Abdomen X-Ray 01/15/17 0000 Signed Impressions: Service Date/Time: Sunday, January 15, 2017 07:48 - CONCLUSION: 1. No evidence of obstruction. Gustabo Dotson MD Liver Ultrasound 12/16/16 0000 Signed Impressions: Service Date/Time: Friday, December 16, 2016 15:25 - CONCLUSION: 1. The liver is prominent with no focal lesion or ascites. 2. The right kidney is small and atrophic in appearance with cortical thinning and no hydronephrosis. There is increased echogenicity most characteristic of medical renal disease. Dylan Bryant MD Renal Ultrasound 12/14/16 0000 Signed Impressions: Service Date/Time: Wednesday, December 14, 2016 18:21 - CONCLUSION: Medical renal disease with echogenic kidneys. There is some atrophy of the right kidney. Nirav Camacho MD Head CT 12/14/16 0000 Signed Impressions: Service Date/Time: Wednesday, December 14, 2016 17:38 - CONCLUSION: Negative for an acute process. Sander Resendiz MD FACR Objective Remarks GENERAL: NAD SKIN: Warm and dry. HEAD: Normocephalic. EYES: No scleral icterus. No injection or drainage. NECK: Trach in place. No JVD or lymphadenopathy. CARDIOVASCULAR: Regular rate and rhythm without murmurs, gallops, or rubs. RESPIRATORY: Breath sounds equal bilaterally. No accessory muscle use. GASTROINTESTINAL: Abdomen soft, non-tender, nondistended. MUSCULOSKELETAL: No cyanosis, or edema. BACK: Nontender without obvious deformity. No CVA tenderness. Procedures SP TRACHEOSTOMY 12-26 SP PEG - SP VDRF A/P Problem List: (1) Acute respiratory failure ICD Code: J96.00 - Acute respiratory failure Status: Resolved (2) Hypocalcemia ICD Code: E83.51 - Hypocalcemia (3) COPD with acute exacerbation ICD Code: J44.1 - Acute exacerbation of chronic obstructive airways disease Status: Resolved (4) Hyponatremia ICD Code: E87.1 - Hyponatremia Status: Acute (5) Acute kidney injury ICD Code: N17.9 - Acute kidney failure, unspecified Status: Acute (6) DM (diabetes mellitus) ICD Code: E11.9 - Type 2 diabetes mellitus without complications Status: Chronic (7) Urinary retention ICD Code: R33.9 - Retention of urine, unspecified Status: Resolved (8) 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 Severe COPD with exacerbation, chronic respiratory failure with acute exacerbation: Tracheostomy done 12/26/16. Trach removed on 01/18/17 by Pulmonary Medicine. Continue bronchodilators, maintain oxygen saturation above 92%. Currently on prednisone 10mg daily 01/21/17 2. Toxic metabolic encephalopathy: Resolved. 3. Hypertension: Continue hydralazine, Isordil, nifedipine, clonidine, labetalol. 4. Hyperlipidemia: Resume statin 5. Pulmonary hypertension: Appreciate pulmonology recommendations. 6. Elevated transaminases: Resolved. 7. Diabetes mellitus with neuropathy: A1c 5.9; currently on low insulin sliding scale 8. Acute kidney injury superimposed on chronic kidney disease stage IV: Appreciate nephrology recommendations. Patient's baseline creatinine is approximately 1.8. She is now at her baseline and stable 9. Normocytic anemia: H&H stable. Transfuse for hemoglobin less than 8 10. Pneumonia, probably community-acquired: Currently on Cipro 500mg BID until today 01/21/17. Appreciate input from infectious disease specialist 11. UTI: Completed course of fluconazole. 12. Tinea cruris: Nystatin powder. 13. GI prophylaxis: Protonix. 14. DVT prophylaxis: SCDs, heparin. 15. Abdominal pain, nausea/vomiting: Resolved Problem Qualifiers (1) Acute respiratory failure: Qualified Codes: J96.01 - Acute respiratory failure with hypoxia; J96.02 - Acute respiratory failure with hypercapnia (2) DM (diabetes mellitus): Qualified Codes: E13.9 - Other specified diabetes mellitus without complications (3) Acute renal failure: Qualified Codes: N17.9 - Acute kidney failure, unspecified Chavez Berger MD Jan 21, 2017 12:57
--- NOTE | 2017-01-21 13:05 | HHI.DS ---
Discharge Summary Admission Date Dec 14, 2016 at 15:55 Discharge Date: Jan 21, 2017 Admitting Diagnosis Acute respiratory failure (1) Acute respiratory failure ICD Code: J96.00 - Acute respiratory failure Diagnosis: Principal Status: Resolved (2) Hypocalcemia ICD Code: E83.51 - Hypocalcemia Diagnosis: Principal (3) COPD with acute exacerbation ICD Code: J44.1 - Acute exacerbation of chronic obstructive airways disease Diagnosis: Principal Status: Resolved (4) Hyponatremia ICD Code: E87.1 - Hyponatremia Diagnosis: Principal Status: Acute (5) Acute kidney injury ICD Code: N17.9 - Acute kidney failure, unspecified Diagnosis: Principal Status: Acute (6) DM (diabetes mellitus) ICD Code: E11.9 - Type 2 diabetes mellitus without complications Diagnosis: Principal Status: Chronic (7) Urinary retention ICD Code: R33.9 - Retention of urine, unspecified Diagnosis: Principal Status: Resolved (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 Date of admission 12/14/2016. Past records includes COPD/oxygen dependent, obstructive sleep apnea not using nocturnal CPAP , hypertension, morbid obesity. Hypertension, chronic kidney disease stage IV. She presents to [facility] 2 day history of shortness of breath. CBC/BMP: 01/17/17 0955 01/19/17 0605 Significant Findings Laboratory Tests Test 01/18/17 14:15 01/19/17 06:05 Blood Urea Nitrogen 60 MG/DL (7-18) 53 MG/DL (7-18) Creatinine 2.22 MG/DL (0.50-1.00) 1.97 MG/DL (0.50-1.00) Random Glucose 250 MG/DL (74-106) 205 MG/DL (74-106) Albumin 3.0 GM/DL (3.4-5.0) 3.1 GM/DL (3.4-5.0) Calcium Level 8.3 MG/DL (8.5-10.1) 7.8 MG/DL (8.5-10.1) Phosphorus Level 2.2 MG/DL (2.5-4.9) 2.1 MG/DL (2.5-4.9) Sodium Level 129 MEQ/L (136-145) 131 MEQ/L (136-145) Chloride Level 93 MEQ/L (98-107) 95 MEQ/L (98-107) Estimat Glomerular Filtration Rate 22 ML/MIN (>89) 26 ML/MIN (>89) Imaging Last Impressions Small Bowel X-Ray 01/16/17 Signed Impressions: Service Date/Time: Monday, January 16, 2017 14:08 - CONCLUSION: Dilated small bowel loops with fluid transit time. Contrast eventually reached the large bowel. Chavez Harvey MD Chest X-Ray 01/15/17 Signed Impressions: Service Date/Time: Sunday, January 15, 2017 08:56 - CONCLUSION: 1. Improved right lower lung zone aeration. 2. Stable pleural-parenchymal disease in the left lower lung zone. Dereck Bang MD Abdomen/Pelvis CT 01/15/17 Signed Impressions: Service Date/Time: Sunday, January 15, 2017 20:07 - CONCLUSION: 1. Dilatation of the proximal and mid small bowel. There does appear to be debris within the distal small bowel. There is also an area of possible thinning of the distal ascending colon. Some degree of obstruction needs to be suspected. 2. G- tube. 3. Evidence of multiple old prior fractures as described above. 4. Left adrenal gland adenoma. 5. Chronic atrophy at the right kidney. Nirav Camacho MD Abdomen X-Ray 01/15/17 Signed Impressions: Service Date/Time: Sunday, January 15, 2017 07:48 - CONCLUSION: 1. No evidence of obstruction. Gustabo Dotson MD Liver Ultrasound 12/16/16 Signed Impressions: Service Date/Time: Friday, December 16, 2016 15:25 - CONCLUSION: 1. The liver is prominent with no focal lesion or ascites. 2. The right kidney is small and atrophic in appearance with cortical thinning and no hydronephrosis. There is increased echogenicity most characteristic of medical renal disease. Dylan Bryant MD Renal Ultrasound 12/14/16 0000 Signed Impressions: Service Date/Time: Wednesday, December 14, 2016 18:21 - CONCLUSION: Medical renal disease with echogenic kidneys. There is some atrophy of the right kidney. Nirav Camacho MD Head CT 12/14/16 0000 Signed Impressions: Service Date/Time: Wednesday, December 14, 2016 17:38 - CONCLUSION: Negative for an acute process. Sander Resendiz MD FACR PE at Discharge GENERAL: NAD SKIN: Warm and dry. HEAD: Normocephalic. EYES: No scleral icterus. No injection or drainage. NECK: Trach in place. No JVD or lymphadenopathy. CARDIOVASCULAR: Regular rate and rhythm without murmurs, gallops, or rubs. RESPIRATORY: Breath sounds equal bilaterally. No accessory muscle use. GASTROINTESTINAL: Abdomen soft, non-tender, nondistended. MUSCULOSKELETAL: No cyanosis, or edema. BACK: Nontender without obvious deformity. No CVA tenderness. Hospital Course Patient was admitted secondary to severe COPD with exacerbation along with acute on chronic respiratory failure which she was initially admitted under the care of critical care medicine with consultation to pulmonary medicine. Patient had Tracheostomy Tube Pl., December 26 2016 which was subsequently removed 01/18/17. She was treated with bronchodilator, steroids, and antibiotics. Nephrology was consulted secondary to acute on chronic kidney disease. Patient was treated for both pneumonia and UTI with antibiotics with significant improvement of symptoms. Gastroenterology was consulted secondary to dysphagia, and patient had a PEG tube placed and she was started on tube feeds. However patient symptoms improved and her diet was advanced accordingly. Prior to discharge PEG tube was removed. DVT and GI prophylaxis were provided. All electrolyte abnormalities were corrected accordingly. Physical therapy was consulted. Patient's condition improve. Pt Condition on Discharge: Stable Discharge Disposition: Discharge to SNF Discharge Time: > 30 minutes Discharge Instructions DIET: Follow Instructions for: Diabetic Diet Activities you can perform: Regular-No Restrictions Follow up Referrals: PCP Follow-up - 2-3 Days New Medications: Ciprofloxacin (Cipro) 500 Mg Tab 500 MG PO BID for Infection, #2 TAB 0 Refills Alprazolam (Xanax) 0.5 Mg Tab 0.5 MG PO Q8H PRN for anxiety, #30 TAB Gabapentin (Gabapentin) 100 Mg Cap 100 MG PO TID for Pain Management, #30 CAP Isosorbide Dinitrate (Isosorbide Dinitrate) 10 Mg Tab 10 MG PO Q8HR for Blood Pressure Management, #90 TAB 3 Refills Labetalol (Labetalol) 200 Mg Tab 200 MG PO Q8H for Blood Pressure Management, #90 TAB 3 Refills Nifedipine (Nifedipine) 20 Mg Cap 40 MG PO Q8HR for Blood Pressure Management, #90 CAP 3 Refills Nystatin Topical (Nystop Topical) 100,000 Unit/Gm Powd 1 APPLIC TOPICAL Q12HR for Infection, #1 UNIT Pantoprazole (Protonix) 20 Mg Tab 20 MG PO DAILY for Prevent Stress Ulcers, #30 TAB Prednisone (Prednisone) 10 Mg Tab 10 MG PO DAILY for Breathing Treatment, #7 TAB Tramadol (Ultram) 50 Mg Tab 50 MG PO Q6H PRN for breakthrough pain, #10 TAB Continued Medications: Albuterol Neb (Albuterol Neb) 2.5 Mg/0.5 Ml Neb 2.5 MG NEB Q4HR NEB PRN for SHORTNESS OF BREATH, EA Note: The Albuterol Sulfate Inhalation Solution is concentrated and must be diluted. Read complete instructions carefully before using. Atorvastatin (Atorvastatin) 20 Mg Tab 20 MG PO HS for Cholesterol Management, #30 TAB 0 Refills Budesonide-Formoterol Inh (Symbicort Inh) 160-4.5 Mcg/Act Aero 2 PUFF INH Q12HR, #1 INHALER 0 Refills Clonidine (Clonidine) 0.1 Mg Tab 0.1 MG PO Q8HR for Blood Pressure Management, #60 TAB 0 Refills Cyanocobalamin ER (Vitamin B-12 Cr) 1,000 Mcg Tab 1000 MCG PO DAILY for Nutritional Supplement, #1 BOTTLE 0 Refills Hydralazine (Hydralazine) 100 Mg Tab 100 MG PO Q8HR for Blood Pressure Management, TAB 0 Refills Take with meals Insulin Aspart Inj (Novolog Inj) 1,000 Unit/10 Ml Vial 0 SQ DIRECTED for Blood Sugar Management, #10 ML 0 Refills Sliding Scale as directed. Insulin Detemir Inj (Levemir Inj) 1,000 unit/ 10 ML Vial 10 UNITS SQ BID for Blood Sugar Management, VIAL 0 Refills Do not mix with any other Insulin. Umeclidinium-Vilanterol Inh (Anoro Ellipta Inh) 62.5-25 Mcg/Act Aero 1 PUFF INH DAILY for COPD, #1 INHALER 0 Refills Discontinued Medications: Azithromycin (Azithromycin) 500 Mg Tab 500 MG PO DAILY for Infection, #5 TAB 1 Refill Gabapentin (Gabapentin) 300 Mg Cap 300 MG PO TID, #90 CAP 0 Refills Isosorbide Mononitrate ER (Isosorbide Mononitrate ER) 30 Mg Malick 30 MG PO DAILY for Prevent Chest Pain, #30 TAB 0 Refills Metoprolol Tartrate (Metoprolol Tartrate) 50 Mg Tab 50 MG PO BID, #60 TAB 0 Refills Nifedipine ER 24 HR (Nifedipine ER 24 HR) 60 Mg Tab 60 MG PO BID, #30 TAB 0 Refills Prednisone (Prednisone) 20 Mg Tab 40 MG PO DAILY, #10 TAB 0 Refills Chavez Berger MD Jan 21, 2017 13:05
[2017-01-21] MEDS ORDERED: PRED10 PO (13:11)
[2017-01-21] MEDS ORDERED: PANT20 PO (13:11)
[2017-01-21] MEDS ORDERED: NIFE20 PO (13:11)
[2017-01-21] MEDS ORDERED: ULTR50TA5 PO (13:11)
[2017-01-21] MEDS ORDERED: NYST10007 TOPICAL (13:11)
[2017-01-21] MEDS ORDERED: GABA100C4 PO (13:11)
[2017-01-21] MEDS ORDERED: ISOS10TA PO (13:11)
[2017-01-21] MEDS ORDERED: ALPR.5 PO (13:11)
[2017-01-21] MEDS ORDERED: CIPR-9 PO (13:11)
[2017-01-21] MEDS ORDERED: LABE200T2 PO (13:11)
[2017-01-21] MEDS: ALPRAZolam 0.5 MG TAB PO PRN (13:34)
--- NOTE | 2017-01-21 13:44 | HHI.GIFU ---
Subjective Remarks Reconsulted for PEG tube removal. Pt is no longer using PEG tube- tolerating meals, good oral intake. Denies nausea/vomiting/dysphagia. Possible discharge to SNF today. Objective Vitals I&O Vital Signs Date Time Temp Pulse Resp B/P (MAP) Pulse Ox O2 Delivery O2 Flow Rate FiO2 01/21/17 12:45 98.6 76 18 135/71 (92) 96 01/21/17 09:19 96 Nasal Cannula 3.00 01/21/17 09:13 98.1 68 16 100/59 (73) 94 01/21/17 05:15 97.8 89 20 130/80 (97) 92 01/21/17 00:40 98.9 88 18 128/88 (101) 93 01/20/17 22:28 20 01/20/17 21:47 93 Nasal Cannula 5.00 01/20/17 21:45 98.3 90 19 150/76 (100) 93 01/20/17 20:00 Nasal Cannula 4.00 01/20/17 16:00 98.3 73 18 129/60 (83) 91 I/O 01/20/17 01/20/17 01/20/17 01/21/17 01/21/17 01/21/17 07:00 15:00 23:00 07:00 15:00 23:00 Intake Total 1050 ml 480 ml 1200 ml 900 ml Balance 1050 ml 480 ml 1200 ml 900 ml Intake Oral 1050 ml 480 ml 1200 ml 900 ml # Voids 3 4 1 3 # Bowel Movements 0 0 0 0 Laboratory Date/Time Source Procedure Growth Status 12/15/16 05:03 Blood Peripheral Aerobic Blood Culture - Final NO GROWTH IN 5 DAYS Complete 12/15/16 05:03 Blood Peripheral Anaerobic Blood Culture - Final NO GROWTH IN 5 DAYS Complete 12/16/16 10:00 Sputum Endotracheal Gram Stain - Final Complete 12/16/16 10:00 Sputum Endotracheal Sputum Culture - Final LIGHT GROWTH NORMAL RESPIRATORY SLAVA Complete 01/02/17 17:30 Urine Catheterized Urine Urine Culture - Final Chaya Albicans Complete Imaging Last Impressions Small Bowel X-Ray 01/16/17 0000 Signed Impressions: Service Date/Time: Monday, January 16, 2017 14:08 - CONCLUSION: Dilated small bowel loops with fluid transit time. Contrast eventually reached the large bowel. Chavez Harvey MD Chest X-Ray 01/15/17 0000 Signed Impressions: Service Date/Time: Sunday, January 15, 2017 08:56 - CONCLUSION: 1. Improved right lower lung zone aeration. 2. Stable pleural-parenchymal disease in the left lower lung zone. Dereck Bang MD Abdomen/Pelvis CT 01/15/17 0000 Signed Impressions: Service Date/Time: Sunday, January 15, 2017 20:07 - CONCLUSION: 1. Dilatation of the proximal and mid small bowel. There does appear to be debris within the distal small bowel. There is also an area of possible thinning of the distal ascending colon. Some degree of obstruction needs to be suspected. 2. G- tube. 3. Evidence of multiple old prior fractures as described above. 4. Left adrenal gland adenoma. 5. Chronic atrophy at the right kidney. Nirav Camacho MD Abdomen X-Ray 01/15/17 0000 Signed Impressions: Service Date/Time: Sunday, January 15, 2017 07:48 - CONCLUSION: 1. No evidence of obstruction. Gustabo Dotson MD Liver Ultrasound 12/16/16 0000 Signed Impressions: Service Date/Time: Friday, December 16, 2016 15:25 - CONCLUSION: 1. The liver is prominent with no focal lesion or ascites. 2. The right kidney is small and atrophic in appearance with cortical thinning and no hydronephrosis. There is increased echogenicity most characteristic of medical renal disease. Dylan Bryant MD Renal Ultrasound 12/14/16 0000 Signed Impressions: Service Date/Time: Wednesday, December 14, 2016 18:21 - CONCLUSION: Medical renal disease with echogenic kidneys. There is some atrophy of the right kidney. Nirav Camacho MD Head CT 12/14/16 0000 Signed Impressions: Service Date/Time: Wednesday, December 14, 2016 17:38 - CONCLUSION: Negative for an acute process. Sander Resendiz MD FACR Physical Exam HEENT: Normocephalic; atraumatic CHEST: Resp. even/unlabored. Course breath sounds CARDIAC: RRR ABDOMEN: Soft, nondistended, nontender. PEG tube clamped. (+) BM EXTREMITIES: Generalized edema. GENERAL ADJUSTER: Alert, oriented x 3 Assessment and Plan Plan ASSESSMENT: - Reconsulted for removal of PEG tube. No longer using. Tolerating diet. No difficulty swallowing, n/v. GI consulted to remove PEG prior to discharge to SNF today. S/P removal without difficulty. - Ileus/constipation. CT Scan abdomen and pelvis with po contrast (01/15/17)--- > Dilatation of the proximal and mid small bowel. There does appear to be debris within the distal small bowel. There is also an area of possible thinning of the distal ascending colon. Some degree of obstruction needs to be suspected. G tube. Evidence of multiple old prior fractures as described above. Left adrenal glad adenoma. Chronic atrophy of right kidney. SBFT (01/16/17)----> Dilated small bowel loops with fluid transit time. Contrast eventually reached the large bowel. S/P SSE x 2 (01/16)--no results. Pt states that she had a large hard stool that was difficult to pass and afterwards, passed a large amount of loose stool filling her bed. She is feeling much better and wants to eat. Her abdomen is soft and nondistended/nontender. Cont. bowel regimen with miralax, colace, senokot. + BM - Constipation/Impaction. Bowel regiment- miralax, colace, senokot + BM. - Melanotic/maroon stool. Nurse reports that she had a small melanotic stool with small amount of maroon tint to it on (01/08/17) and 2 small john colored bowel movements on (01/09). I flushed and aspirated clear contents from PEG tube (01/08). Pt reports that she last had colonoscopy 2 years ago and this was normal. EGD at time of PEG tube placement (12/27/16) was unremarkable. She has not had any further episodes of this. HH stable. - Dysphagia, FEN. Pt in ICU, with respiratory failure, severe copd, heraclio, suspected cap, requiring prolonged mechanical ventilation. S/P tracheostomy placement. GI consulted for PEG tube placement. Assembly Line Robot Operator recommends Nepro at 40cc/hr and discontinuing the Steve BID. S/P EGD with peg tube placement (12/27/16)-- -> 1. The upper, middle, and distal third of the esophagus were carefully inspected and no abnormalities were noted. The z- line was well seen at the GEJ. The endoscope was pushed into the fundus which was normal including a retroflexed view. The antrum, first and second part of the duodenum were unremarkable. 2. No abnormalities 3.S/p peg placement. Improved. Not using peg. Tolerating TF. - Respiratory failure, COPD, HERACLIO, Suspected CAP. IMproved - Acute on chronic kidney disease, per renal. - DM, encephalopathy, htn, hyperlipidemia, per attending PLAN: - S/P PEG tube removal - NITO - Cont. Miralax - Cont. Senokot - GI will sign off, please reconsult as needed - Pt seen and examined by Dr. Gibson and myself and this note is written on his behalf Callie Sims Jan 21, 2017 13:44
--- NOTE | 2017-01-21 14:00 | HHI.HCPN ---
Met with Ms. Vigil in her room, 1248. She is currently sitting up in bedside chair, alert, oriented and able to make her needs known. She is appropriate in conversation. Aware of pending discharge back to [facility]. She inquires about getting a private room when she gets there. Encouraged her to speak with facility upon arrival. Also spoke with CM regarding this request to facilitate information to facility. Spoke with Ms. Vigil about advanced directives. She declines completing with me at this time. Requested documents (living will and health care surrogate) to take with her to the facility. She is wanting time to talk with her daughter more about everything. Educating her on making sure daughter and facility have a copy after completion to ensure a copy can be given to [place] should she return. Gently discussed living will with her and different conditions ( intubation, cardiac resuscitation, dialysis, trach, peg, etc). She replies " been through all of that before". Goals remains aggressive at this time. Provided palliative care contact information as she reports she lost card previously given. Expected discharge back to facility today. Sofia Quiroz MSW, RESTAURANT GENERAL MANAGER Jan 21, 2017 14:00
[2017-01-21 16:25] VITALS: BP 117/64; PULSE 77; RESP 18; TEMP 98.3; O2SAT 94
--- NOTE | 2017-01-22 11:11 | MD ---
cc: Flor HANNAH ADMISSION DATE: 12/14/2016 DISCHARGE DATE: 01/21/2017 Ms. Vigil is a 61-year-old white female with very severe COPD who presented with acute respiratory failure. She had a prolonged hospital course requiring mechanical ventilatory support and dialysis when she went into renal failure. Eventually recovered and had a prolonged weaning process with tracheostomy and a PEG tube and last Saturday we were able to remove the tracheostomy tube and she has been stable on nasal cannula at 4-5 liters. Also plan to remove the PEG tube today prior to discharge to a nursing facility for further rehab. The patient was known to me prior to this admission with severe respiratory illness with COPD, pulmonary functions in the range of 30%. She is also diabetic. She also has been wearing C-PAP at home due to HERACLIO and she is quite obese. PHYSICAL EXAM Today at the time I saw her, though she was awake, alert, comfortable, afebrile, blood pressure 117/64, pulse of at 80, respirations 16-20 nonlabored, sat 96% on 3 liters. LUNGS: Her lungs were diminished, but clear without wheezes or congestion. NECK: Her tracheostomy was healing well. HEART: Heart rate was regular without audible S3 and she had no peripheral edema. Her last chest x-ray on 01/15 revealed considerable clearing with some stable infiltrative changes at the right base. Sputum culture revealed normal lynda on 12/16 and white blood cell count had been normal over the last week. The last blood gas was done on 28% on 01/04 with a pO2 of 67, pH 7.48, pCO2 of 33, BUN was 53, creatinine 2. Ms. Vigil has severe COPD. She has had a prolonged hospitalization due to respiratory failure and renal failure which she has recovered from and is no longer on dialysis. She is being discharged to a rehab facility where she will be enrolled in active physical rehabilitation hopefully for a few weeks and I asked her to call me when she left the facility and will see her back in the office for a pulmonary follow-up. MD JAMARI Yanez/SAURAV /6:48 PM /10:59 AM
== END 2017-01-21 17:30 | DRG 4 ==
LOC: NEPE 14:00 → NEDA 15:55 → HIMN 17:54 → N05A 01-10 21:55
PROVIDERS: ADMIT Internal Medicine Critical Care Medicine; ATTEND Hospitalist
PROC: 5A1955Z Respiratory Ventilation, Greater than 96 Consecutive Hours (ICD-10-PCS; 2016-12-14)
PROC: 0BH17EZ Insertion of Endotracheal Airway into Trachea, Via Natural or Artificial Opening (ICD-10-PCS; 2016-12-14)
PROC: 02HV33Z Insertion of Infusion Device into Superior Vena Cava, Percutaneous Approach (ICD-10-PCS; 2016-12-14)
PROC: 5A09357 Assistance with Respiratory Ventilation, Less than 24 Consecutive Hours, Continuous Positive Airway Pressure (ICD-10-PCS; 2016-12-14)
PROC: 5A1D70Z Performance of Urinary Filtration, Intermittent, Less than 6 Hours Per Day (ICD-10-PCS; 2016-12-20)
PROC: 02HV33Z Insertion of Infusion Device into Superior Vena Cava, Percutaneous Approach (ICD-10-PCS; 2016-12-20)
PROC: 0B113F4 Bypass Trachea to Cutaneous with Tracheostomy Device, Percutaneous Approach (ICD-10-PCS; principal; 2016-12-26)
PROC: 5A1955Z Respiratory Ventilation, Greater than 96 Consecutive Hours (ICD-10-PCS; 2016-12-26)
PROC: 0BJ08ZZ Inspection of Tracheobronchial Tree, Via Natural or Artificial Opening Endoscopic (ICD-10-PCS; 2016-12-26)
PROC: 0DH63UZ Insertion of Feeding Device into Stomach, Percutaneous Approach (ICD-10-PCS; 2016-12-27)
DX: J96.21 Acute and chronic respiratory failure with hypoxia (principal); N17.0 Acute kidney failure with tubular necrosis; G92 Toxic encephalopathy; J18.9 Pneumonia, unspecified organism; L89.321 Pressure ulcer of left buttock, stage 1; N25.81 Secondary hyperparathyroidism of renal origin; E87.2 Acidosis; N18.4 Chronic kidney disease, stage 4 (severe); J44.0 Chronic obstructive pulmonary disease with (acute) lower respiratory infection; E87.1 Hypo-osmolality and hyponatremia; J44.1 Chronic obstructive pulmonary disease with (acute) exacerbation; B37.49 Other urogenital candidiasis; K56.7 Ileus, unspecified; R13.10 Dysphagia, unspecified; E11.21 Type 2 diabetes mellitus with diabetic nephropathy; J96.22 Acute and chronic respiratory failure with hypercapnia; E11.42 Type 2 diabetes mellitus with diabetic polyneuropathy; E11.22 Type 2 diabetes mellitus with diabetic chronic kidney disease; E11.65 Type 2 diabetes mellitus with hyperglycemia; E66.01 Morbid (severe) obesity due to excess calories; E78.5 Hyperlipidemia, unspecified; E83.51 Hypocalcemia; G25.81 Restless legs syndrome; G47.33 Obstructive sleep apnea (adult) (pediatric); Z99.81 Dependence on supplemental oxygen; M06.9 Rheumatoid arthritis, unspecified; E83.39 Other disorders of phosphorus metabolism; B35.6 Tinea cruris; D63.1 Anemia in chronic kidney disease; I27.23 Pulmonary hypertension due to lung diseases and hypoxia; Z68.31 Body mass index [BMI] 31.0-31.9, adult; E87.70 Fluid overload, unspecified; I12.9 Hypertensive chronic kidney disease with stage 1 through stage 4 chronic kidney disease, or unspecified chronic kidney disease; K56.41 Fecal impaction; R74.0 Nonspecific elevation of levels of transaminase and lactic acid dehydrogenase [LDH]; Z87.891 Personal history of nicotine dependence; Z79.4 Long term (current) use of insulin; Z79.51 Long term (current) use of inhaled steroids; Z88.5 Allergy status to narcotic agent; Z23 Encounter for immunization
CPT/HCPCS: 31500; 31600; 31624; 36556; 36600; 36620; 70450; 71010; 74000; 74176; 74250; 76705; 76775; 76937; 80048; 80053; 80069; 80074; 80076; 80202; 81001; 82043; 82140; 82150; 82306; 82397; 82550; 82552; 82570; 82652; 82805; 82948; 83036; 83605; 83690; 83735; 83880; 83970; 84100; 84132; 84155; 84300; 84439; 84443; 84484; 84550; 85007; 85025; 85027; 85384; 85610; 85730; 87040; 87070; 87086; 87205; 87449; 87641; 90471; 90686; 90935; 93005; 93308; 94002; 94003; 94640; 94664; 94799; 96365; 96374; 96375; A7521; G0008; J0330; J0360; J0456; J0610; J0690; J1325; J1580; J1644; J1815; J1940; J1956; J2250; J2405; J2543; J2550; J2765; J2920; J2930; J3010; J3370; J3475; J3480; J7030; J7050; J7512; J7608; J7613; J7626; P9047; Q2038; Q4081; Q9963